=== PATIENT | female | born 1950 | race Caucasian/White ===

== ENCOUNTER 2016-10-03 19:17 | Inpatient (IN) | payer MEDICARE, BC ==
[2016-10-03] MEDS ORDERED: SODIUM CHLORIDE 0.9% 1,000 ML IV ONE (19:44)
[2016-10-03 19:49] LABS: Glucose,Whole Blood 561 mg/dL (75-99)
--- NOTE | 2016-10-03 19:50 | ED ---
General Adult HPI - General Chief complaint: Recheck/Abnormal Lab/Rx Stated complaint: High Blood Sugar Time Seen by Provider: 10/03/16 19:34 Source: patient, family Mode of arrival: ambulatory Limitations: no limitations - History of Present Illness Initial comments: This is a 58-year-old female with a history of type 2 diabetes who presents emergency department for hyperglycemia. The patient states that she is on Humalog sliding scale and also Toujeo 50 units at nighttime. She states that she has been compliant with her medications however she is noted that over the last 4-5 days her sugars have been consistently over 500 she states that she does take her Humalog and then it seems to improve however keeps going up. She does state that she has some associated shortness of breath this week and also has urinary frequency. She also complains of polydipsia. 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 She states that her symptoms seem to be starting after starting this medication. She also admits to some nausea and one episode of vomiting. She also admits to some diarrhea. No abdominal pain. No chest pain. No fevers or chills. No upper respiratory symptoms. No rashes. She does admit to little bit of lower extremity swelling from her baseline. No other complaints. - Related Data Home Medications Medication Instructions Recorded Confirmed Escitalopram [Lexapro] 10 mg PO AC-SUPPER 01/19/16 10/03/16 Insulin Glargine,Hum.rec.anlog 50 units SQ AC-SUPPER 01/19/16 10/03/16 [Toujeo Solostar] Ramipril [Altace] 2.5 mg PO DAILY 01/19/16 10/03/16 Vit B Cmplx 3/FA/Vit C/Biotin 1 tab PO W/SUPPER 01/19/16 10/03/16 [[facility] Rx Tablet] busPIRone HCL [Buspar] 15 mg PO W/SUPPER 01/19/16 10/03/16 rOPINIRole HCL 0.5 mg PO BID 01/19/16 10/03/16 INSULIN LISPRO (humaLOG) [humaLOG See Protocol SQ ACHS 02/13/16 10/03/16 (formulary)] Gabapentin [Neurontin] 100 mg PO TID PRN 05/01/16 10/03/16 LORazepam [Ativan] 0.5 mg PO DAILY PRN 05/01/16 10/03/16 Levothyroxine Sodium [Synthroid] 200 mcg PO DAILY 10/03/16 10/03/16 Allergies Allergy/AdvReac Type Severity Reaction Status Date / Time formaldehyde AdvReac Itching Verified 10/03/16 20:02 nickel AdvReac Itching Verified 10/03/16 20:02 quaternium AdvReac Itching Verified 10/03/16 20:02 Sulfa (Sulfonamide AdvReac Itching Verified 10/03/16 20:02 Antibiotics) Review of Systems ROS Statement: Those systems with pertinent positive or pertinent negative responses have been documented in the HPI. ROS Other: All systems not noted in ROS Statement are negative. Past Medical History Past Medical History: Heart Failure, Diabetes Mellitus, Osteoarthritis (OA), Thyroid Disorder Additional Past Medical History / Comment(s): hypothyroid History of Any Multi-Drug Resistant Organisms: None Reported Past Surgical History: Cholecystectomy, Hernia Repair, Joint Replacement Additional Past Surgical History / Comment(s): kidney stones, left knee replacement Past Anesthesia/Blood Transfusion Reactions: No Reported Reaction Past Psychological History: Depression Additional Psychological History / Comment(s): 12/21/15 Smoking Status: Never smoker Past Alcohol Use History: None Reported Past Drug Use History: None Reported - Past Family History Father History Unknown: Yes Family Medical History: Diabetes Mellitus Additional Family Medical History / Comment(s): etoh Mother Family Medical History: Liver Disease Additional Family Medical History / Comment(s): etoh Brother(s) Additional Family Medical History / Comment(s): depression, etoh General Exam - General Exam Comments Initial Comments: Constitutional: Awake alert Appears comfortable Head: Normocephalic atraumatic ENT: TMs clear bilaterally, oropharynx is clear, mucous membranes are tacky Eyes: no conjunctival injection No scleral icterus EOMI Neck: No JVD Supple Heart: Regular rate rhythm normal S1-S2 no murmurs Lungs: Clear to auscultation bilaterally No wheezing No rales Abdomen: Soft nondistended nontender Extremities: Non edematous DP pulses intact Radial pulses intact, no rashes or ulcerations in bilateral lower extremities Neuro: A&Ox3 No focal neurologic deficits Psych: Appropriate mood and affect Limitations: no limitations Course Vital Signs 10/03/16 10/03/16 19:17 20:40 Temperature 98.6 F Pulse Rate 80 73 Respiratory 18 16 Rate Blood Pressure 119/84 122/59 O2 Sat by Pulse 98 96 Oximetry EKG Findings - EKG Comments: EKG Findings:: EKG showing normal sinus rhythm with a rate of 77. No ST segment changes. There is a T-wave inversion in lead V2. QTC is 423. Other intervals are normal. No ectopy. Medical Decision Making - Medical Decision Making This is a 66-year-old female who presents emergency department for hyperglycemia. She was found to have urinary tract infection and also found to be in early DKA. PH is 7.33 and mildly reduced. Bicarb is also 21. She did have positive ketones in the urine and blood. The patient was started on insulin drip after a bolus and will be admitted to the hospital for further management. She was initiated on DKA protocol. Dr. Riddle was updated and agrees with the admission. Patient was also updated and agrees. All questions were answered. - Lab Data Result diagrams: 10/03/16 20:05 10/03/16 20:05 Lab Results 10/03/16 10/03/16 10/03/16 Range/Units 19:32 20:05 20:05 WBC (3.8-10.6) k/uL RBC (3.80-5.40) m/uL Hgb (11.4-16.0) gm/dL Hct (34.0-46.0) % MCV (80.0-100.0) fL MCH (25.0-35.0) pg MCHC (31.0-37.0) g/dL RDW (11.5-15.5) % Plt Count (150-450) k/uL Neutrophils % % Lymphocytes % % Monocytes % % Eosinophils % % Basophils % % Neutrophils # (1.3-7.7) k/uL Lymphocytes # (1.0-4.8) k/uL Monocytes # (0-1.0) k/uL Eosinophils # (0-0.7) k/uL Basophils # (0-0.2) k/uL Macrocytosis PT (9.0-12.0) sec INR (<1.1) APTT (22.0-30.0) sec VBG pH (7.31-7.41) VBG pCO2 (37-51) mmHg VBG HCO3 (24-28) mmol/L Sodium (137-145) mmol/L Potassium (3.5-5.1) mmol/L Chloride (98-107) mmol/L Carbon Dioxide (22-30) mmol/L Anion Gap mmol/L BUN (7-17) mg/dL Creatinine (0.52-1.04) mg/dL Est GFR (MDRD) Af Amer (>60 ml/min/1.73 sqM) Est GFR (MDRD) Non-Af (>60 ml/min/1.73 sqM) Glucose (74-99) mg/dL POC Glucose (mg/dL) 561 H (75-99) mg/dL POC Glu Supermarket Manager ID AngerCourtney Plasma Lactic Acid Guicho (0.7-2.0) mmol/L Calcium (8.4-10.2) mg/dL Magnesium (1.6-2.3) mg/dL Total Bilirubin (0.2-1.3) mg/dL AST (14-36) U/L ALT (9-52) U/L Alkaline Phosphatase (38-126) U/L CK-MB (CK-2) 2.8 H* (0.0-2.4) ng/mL Troponin I <0.012 (0.000-0.034) ng/mL Total Protein (6.3-8.2) g/dL Albumin (3.5-5.0) g/dL Amylase 38 (30-110) U/L Lipase (23-300) U/L Urine Color Urine Appearance (Clear) Urine pH (5.0-8.0) Ur Specific Hawthorne (1.001-1.035) Urine Protein (Negative) Urine Glucose (UA) (Negative) Urine Ketones (Negative) Urine Blood (Negative) Urine Nitrite (Negative) Urine Bilirubin (Negative) Urine Urobilinogen (<2.0) mg/dL Ur Leukocyte Esterase (Negative) Urine RBC (0-5) /hpf Urine WBC (0-5) /hpf Ur Squamous Epith Cells (0-4) /hpf Urine Bacteria (None) /hpf Hyaline Casts (0-2) /lpf Acetone, Qual Positive (Negative) 10/03/16 10/03/16 10/03/16 Range/Units 20:05 20:05 20:05 WBC 7.8 (3.8-10.6) k/uL RBC 3.86 (3.80-5.40) m/uL Hgb 12.3 (11.4-16.0) gm/dL Hct 39.0 (34.0-46.0) % MCV 101.0 H (80.0-100.0) fL MCH 32.0 (25.0-35.0) pg MCHC 31.6 (31.0-37.0) g/dL RDW 13.8 (11.5-15.5) % Plt Count 192 (150-450) k/uL Neutrophils % 67 % Lymphocytes % 22 % Monocytes % 5 % Eosinophils % 3 % Basophils % 1 % Neutrophils # 5.2 (1.3-7.7) k/uL Lymphocytes # 1.7 (1.0-4.8) k/uL Monocytes # 0.4 (0-1.0) k/uL Eosinophils # 0.2 (0-0.7) k/uL Basophils # 0.1 (0-0.2) k/uL Macrocytosis Slight PT (9.0-12.0) sec INR (<1.1) APTT (22.0-30.0) sec VBG pH (7.31-7.41) VBG pCO2 (37-51) mmHg VBG HCO3 (24-28) mmol/L Sodium 128 L (137-145) mmol/L Potassium 5.4 H (3.5-5.1) mmol/L Chloride 97 L (98-107) mmol/L Carbon Dioxide 21 L (22-30) mmol/L Anion Gap 10 mmol/L BUN 41 H (7-17) mg/dL Creatinine 1.18 H (0.52-1.04) mg/dL Est GFR (MDRD) Af Amer 55 (>60 ml/min/1.73 sqM) Est GFR (MDRD) Non-Af 46 (>60 ml/min/1.73 sqM) Glucose 600 H* (74-99) mg/dL POC Glucose (mg/dL) (75-99) mg/dL POC Glu Supermarket Manager ID Plasma Lactic Acid Guicho 1.4 (0.7-2.0) mmol/L Calcium 9.2 (8.4-10.2) mg/dL Magnesium 1.8 (1.6-2.3) mg/dL Total Bilirubin 1.0 (0.2-1.3) mg/dL AST 34 (14-36) U/L ALT 45 (9-52) U/L Alkaline Phosphatase 100 (38-126) U/L CK-MB (CK-2) (0.0-2.4) ng/mL Troponin I (0.000-0.034) ng/mL Total Protein 6.6 (6.3-8.2) g/dL Albumin 3.8 (3.5-5.0) g/dL Amylase (30-110) U/L Lipase 83 (23-300) U/L Urine Color Urine Appearance (Clear) Urine pH (5.0-8.0) Ur Specific Haw[place]orne (1.001-1.035) Urine Protein (Negative) Urine Glucose (UA) (Negative) Urine Ketones (Negative) Urine Blood (Negative) Urine Nitrite (Negative) Urine Bilirubin (Negative) Urine Urobilinogen (<2.0) mg/dL Ur Leukocyte Esterase (Negative) Urine RBC (0-5) /hpf Urine WBC (0-5) /hpf Ur Squamous Epith Cells (0-4) /hpf Urine Bacteria (None) /hpf Hyaline Casts (0-2) /lpf Acetone, Qual (Negative) 10/03/16 10/03/16 10/03/16 Range/Units 20:05 20:05 20:25 WBC (3.8-10.6) k/uL RBC (3.80-5.40) m/uL Hgb (11.4-16.0) gm/dL Hct (34.0-46.0) % MCV (80.0-100.0) fL MCH (25.0-35.0) pg MCHC (31.0-37.0) g/dL RDW (11.5-15.5) % Plt Count (150-450) k/uL Neutrophils % % Lymphocytes % % Monocytes % % Eosinophils % % Basophils % % Neutrophils # (1.3-7.7) k/uL Lymphocytes # (1.0-4.8) k/uL Monocytes # (0-1.0) k/uL Eosinophils # (0-0.7) k/uL Basophils # (0-0.2) k/uL Macrocytosis PT 10.6 (9.0-12.0) sec INR 1.0 (<1.1) APTT 22.8 (22.0-30.0) sec VBG pH 7.33 (7.31-7.41) VBG pCO2 44 (37-51) mmHg VBG HCO3 22 L (24-28) mmol/L Sodium (137-145) mmol/L Potassium (3.5-5.1) mmol/L Chloride (98-107) mmol/L Carbon Dioxide (22-30) mmol/L Anion Gap mmol/L BUN (7-17) mg/dL Creatinine (0.52-1.04) mg/dL Est GFR (MDRD) Af Amer (>60 ml/min/1.73 sqM) Est GFR (MDRD) Non-Af (>60 ml/min/1.73 sqM) Glucose (74-99) mg/dL POC Glucose (mg/dL) (75-99) mg/dL POC Glu Supermarket Manager ID Plasma Lactic Acid Guicho (0.7-2.0) mmol/L Calcium (8.4-10.2) mg/dL Magnesium (1.6-2.3) mg/dL Total Bilirubin (0.2-1.3) mg/dL AST (14-36) U/L ALT (9-52) U/L Alkaline Phosphatase (38-126) U/L CK-MB (CK-2) (0.0-2.4) ng/mL Troponin I (0.000-0.034) ng/mL Total Protein (6.3-8.2) g/dL Albumin (3.5-5.0) g/dL Amylase (30-110) U/L Lipase (23-300) U/L Urine Color Light Yellow Urine Appearance Clear (Clear) Urine pH 6.0 (5.0-8.0) Ur Specific Haw[place]orne 1.018 (1.001-1.035) Urine Protein Negative (Negative) Urine Glucose (UA) 4+ H (Negative) Urine Ketones 1+ H (Negative) Urine Blood Negative (Negative) Urine Nitrite Negative (Negative) Urine Bilirubin Negative (Negative) Urine Urobilinogen <2.0 (<2.0) mg/dL Ur Leukocyte Esterase Trace H (Negative) Urine RBC 1 (0-5) /hpf Urine WBC 17 H (0-5) /hpf Ur Squamous Epith Cells 1 (0-4) /hpf Urine Bacteria Few H (None) /hpf Hyaline Casts 1 (0-2) /lpf Acetone, Qual (Negative) Disposition Clinical Impression: DKA (diabetic ketoacidoses), UTI (urinary tract infection) Disposition: ADMITTED IP TO THIS HOSP Condition: Stable
[2016-10-03] MEDS ORDERED: ONDANSETRON 4 MG/2 ML VIAL IVP STA (19:59)
[2016-10-03 20:32] LABS: Basophils # (A) 0.1 k/uL (0-0.2); Basophils % (A) 1 %; CH 31.9; CHCM 31.8; Eosinophils # (A) 0.2 k/uL (0-0.7); Eosinophils % (A) 3 %; HDW 2.74; HGB 12.3 gm/dL (11.4-16.0); Luc # (Auto) 0.13; Luc % (Auto) 2; Lymphocytes # (A) 1.7 k/uL (1.0-4.8); Lymphocytes % (A) 22 %; MCHC 31.6 g/dL (31.0-37.0); Macrocytosis Slight; Monocytes # (A) 0.4 k/uL (0-1.0); Monocytes % (A) 5 %; Neutrophils # (A) 5.2 k/uL (1.3-7.7); Neutrophils % (A) 67 %; RBC 3.86 m/uL (3.80-5.40); RDW 13.8 % (11.5-15.5); WBC 7.8 k/uL (3.8-10.6); WBC (Perox) 7.85
[2016-10-03 20:37] LABS: Appearance,Urine Clear (Clear); Bacteria,Urine Few /hpf; Bilirubin,Urine Negative (Negative); Glucose,Urine (UA) 4+ (Negative); Ketones,Urine 1+ (Negative); Leukocyte Esterase,Urine Trace (Negative); Nitrite,Urine Negative (Negative); Particle Count 668; Protein,Urine Negative (Negative); RBC,Urine 1 /hpf (0-5); Specific Gravity,Urine 1.018 (1.001-1.035); Squamous Epithelial Cell,Urine 1 /hpf (0-4); UA Billing (MACRO vs. MICRO) MICRO; Urobilinogen,Urine <2.0 mg/dL (<2.0); WBC,Urine 17 /hpf (0-5)
[2016-10-03 20:47] LABS: Partial Thromboplastin Time 22.8 sec (22.0-30.0); Prothrombin Time 10.6 sec (9.0-12.0)
[2016-10-03 20:50] LABS: Amylase 38 U/L (30-110)
[2016-10-03 20:50] LABS: VBG PH 7.33 (7.31-7.41)
[2016-10-03 20:51] LABS: Calcium 9.2 mg/dL (8.4-10.2); Magnesium 1.8 mg/dL (1.6-2.3); Potassium 5.4 mmol/L (3.5-5.1); Total Protein 6.6 g/dL (6.3-8.2)
[2016-10-03 20:55] LABS: Troponin I <0.012 ng/mL (0.000-0.034)
[2016-10-03 21:00] LABS: Creatine Kinase MB 2.8 ng/mL (0.0-2.4)
[2016-10-03] MEDS ORDERED: Magnesium Replacement Protocol 1 EACH MISC MISCELLANE PRN (21:00)
[2016-10-03] MEDS ORDERED: INSULIN REGULAR BOLUS (FROM DRIP BAG) IV ONE (21:00)
[2016-10-03] MEDS ORDERED: Potassium Replacement Protocol 1 EACH MISC MISCELLANE PRN (21:00)
--- NOTE | 2016-10-03 21:07 | XR ---
EXAMINATION TYPE: XR chest 2V DATE OF EXAM: 10/03/2016 9:01 PM COMPARISON: 02/13/2016 HISTORY: Chest pain TECHNIQUE: Frontal and lateral views of the chest are obtained. FINDINGS: There is no heart failure nor confluent pneumonic infiltrate. There is osteopenia. There i s a slight thoracic kyphosis. There is no pleural effusion. There are no hilar masses. There are ches t leads. IMPRESSION: No active cardiopulmonary disease. No change.
[2016-10-03] MEDS ORDERED: GABAPENTIN 100 MG CAP PO PRN (21:11)
[2016-10-03] MEDS: INSULIN REGULAR 100 UNIT in SODIUM CHLORIDE 0.9% 100 ML IV SCH (21:22)
[2016-10-03] MEDS: SODIUM CHLORIDE 0.9% 1,000 ML IV SCH (21:49)
[2016-10-03 22:02] LABS: Glucose,Whole Blood 497 mg/dL (75-99)
[2016-10-04 04:20] LABS: Glucose,Whole Blood 163 mg/dL (75-99)
[2016-10-04 04:20] LABS: Glucose,Whole Blood 225 mg/dL (75-99)
[2016-10-04 04:20] LABS: Glucose,Whole Blood 78 mg/dL (75-99)
[2016-10-04 04:20] LABS: Glucose,Whole Blood 120 mg/dL (75-99)
[2016-10-04 04:20] LABS: Glucose,Whole Blood 303 mg/dL (75-99)
[2016-10-04 04:20] LABS: Glucose,Whole Blood 102 mg/dL (75-99)
[2016-10-04 04:21] LABS: Glucose,Whole Blood 162 mg/dL (75-99)
[2016-10-04 05:04] LABS: Glucose,Whole Blood 152 mg/dL (75-99)
[2016-10-04] MEDS ORDERED: traMADol 50 MG TAB PO PRN (05:18)
[2016-10-04] MEDS ORDERED: ACETAMINOPHEN TAB 325 MG TAB PO PRN (05:18)
[2016-10-04 06:10] LABS: Glucose,Whole Blood 139 mg/dL (75-99)
[2016-10-04 06:11] LABS: Anion Gap 8 mmol/L; Blood Urea Nitrogen 33 mg/dL (7-17); Carbon Dioxide 24 mmol/L (22-30); Chloride 105 mmol/L (98-107); Non-African American GFR(MDRD) >60 (>60 ml/min/1.73 sqM); Phosphorous 4.5 mg/dL (2.5-4.5); Potassium 4.4 mmol/L (3.5-5.1); Sodium 137 mmol/L (137-145)
[2016-10-04] MEDS: D5-0.45% NACL WITH KCL 20MEQ/L 1,000 ML IV SCH ×3 (06:13→14:03)
[2016-10-04 06:14] LABS: Anion Gap 11 mmol/L; Blood Urea Nitrogen 37 mg/dL (7-17); Carbon Dioxide 19 mmol/L (22-30); Chloride 104 mmol/L (98-107); Glucose 244 mg/dL (74-99); Non-African American GFR(MDRD) 55 (>60 ml/min/1.73 sqM); Phosphorous 2.8 mg/dL (2.5-4.5); Potassium 4.1 mmol/L (3.5-5.1); Sodium 134 mmol/L (137-145)
[2016-10-04] MEDS: SODIUM CHLORIDE 0.9% 1,000 ML IV SCH ×2 (06:14→14:03)
[2016-10-04 06:19] LABS: Glucose 172 mg/dL (74-99)
[2016-10-04 07:25] LABS: Glucose,Whole Blood 119 mg/dL (75-99)
[2016-10-04] MEDS ORDERED: LORazepam 0.5 MG TAB PO PRN (07:52)
[2016-10-04] MEDS: INSULIN REGULAR 100 UNIT in SODIUM CHLORIDE 0.9% 100 ML IV SCH (08:11)
[2016-10-04] MEDS: LISINOPRIL 10 MG TAB PO SCH (08:45)
[2016-10-04] MEDS: LEVOTHYROXINE 100 MCG TAB PO SCH (08:47)
[2016-10-04 12:13] LABS: Glucose,Whole Blood 324 mg/dL (75-99)
[2016-10-04 12:13] LABS: Glucose,Whole Blood 406 mg/dL (75-99)
[2016-10-04 12:27] LABS: Hemoglobin A1C 8.2 % (4.2-6.1)
[2016-10-04] MEDS: INSULIN LISPRO (humaLOG) 300 UNIT/3 ML VIAL SQ SCH ×3 (12:32→21:35)
[2016-10-04 14:46] VITALS: BMI 40.4
[2016-10-04 17:22] LABS: Glucose,Whole Blood 303 mg/dL (75-99)
[2016-10-04] MEDS ORDERED: INSULIN GLARGINE 100 UNIT/ML 10 ML VIAL SQ SCH (17:30)
[2016-10-04] MEDS ORDERED: ESCITALOPRAM 10 MG TAB PO SCH (17:30)
[2016-10-04] MEDS ORDERED: FOLIC ACID-VIT B COMPLEX-VIT C 1 CAP PO SCH (17:30)
[2016-10-04] MEDS ORDERED: busPIRone HCl 5 MG TAB PO SCH (17:30)
[2016-10-04 19:16] LABS: Glucose,Whole Blood 345 mg/dL (75-99)
[2016-10-04 20:57] LABS: Glucose,Whole Blood 205 mg/dL (75-99)
[2016-10-05 06:20] LABS: Glucose,Whole Blood 42 mg/dL (75-99); Glucose,Whole Blood 46 mg/dL (75-99)
[2016-10-05 06:53] LABS: Glucose,Whole Blood 51 mg/dL (75-99)
[2016-10-05 06:53] LABS: Glucose,Whole Blood 49 mg/dL (75-99)
[2016-10-05] MEDS: INSULIN LISPRO (humaLOG) 300 UNIT/3 ML VIAL SQ SCH ×2 (07:00→12:36)
[2016-10-05 07:01] LABS: Glucose,Whole Blood 85 mg/dL (75-99)
[2016-10-05] MEDS: LEVOTHYROXINE 100 MCG TAB PO SCH (07:02)
[2016-10-05] MEDS ORDERED: ESCITALOPRAM 20 MG TAB PO SCH (09:00)
[2016-10-05] MEDS: LISINOPRIL 10 MG TAB PO SCH (09:57)
--- NOTE | 2016-10-05 11:25 | HP ---
DATE OF ADMISSION: 10/03/2016 This is a pleasant 66-year-old white female who has known type 2 diabetes, insulin requiring. She apparently has been drinking quite a bit of pop as an outpatient. She states that she has been relatively controlled in her diet but is recently and under some stress and depression where she has not been eating regular and accurately. She does state that she has been drinking extra pop as of late. She reported having some urinary tract infection symptoms as well as some increased thirst, increased hunger, and increased polyuria. She did have some nausea and one episode of vomiting and was found to have sugars well over 400. On admission. She had sugars up to 500. Her home medications include: 1. Lexapro. 2. Toujeo. 3. Altace. 4. Buspar 50 mg 1 at dinner. 5. Humalog. 6. Neurontin. 7. Ropinol 0.5 b.i.d. 8. Insulin lispro on a sliding scale, subcu at bedtime. 9. Gabapentin 100 mg t.i.d. 10. Ativan 0.5 mg 1 daily. 11. Synthroid 200 mcg p.o. 1 daily. ALLERGIES: FORMALDEHYDE, NICKEL, SULFUR. REVIEW OF SYSTEMS: The patient denies any fevers. She denies any shortness of breath or chest pain. She denies any nausea or vomiting. Denies any stroke or paralysis. Recently , she is saddened by this, she is having increased problems with depression. Review of systems is essentially unremarkable. PAST MEDICAL HISTORY: Significant for diabetes, osteoarthritis, heart failure, hypothyroid. PAST SURGICAL HISTORY: Cholecystectomy, hernia repair, joint replacement, kidney stone extraction, left knee replacement. SOCIAL HISTORY: Denies any tobacco or alcohol. She lived with her many years, he in December 21, 2015. FAMILY HISTORY: Family history of diabetes. PHYSICAL EXAMINATION: GENERAL: The patient is alert, answering questions appropriately. HEAD: Normocephalic and atraumatic. NECK: Supple. No JVD. HEART: Regular rate and rhythm. LUNGS: Clear to auscultation. ABDOMEN: Soft, nontender, obese. No rebound, rigidity, guarding. EXTREMITIES: No cyanosis, clubbing or jaundice. NEUROLOGIC: Cranial nerves II through XII are grossly intact. PSYCHOLOGICAL: She is answering questions appropriately at this point. Her sugar is down in the mid 100s, recent one was 119. IMPRESSION: 1. Acute hyperglycemia, 2. Hyponatremia. 3. Early diabetic ketoacidosis. 4. Recent loss of . 5. Hyperkalemia. 6. Acute kidney injury with stage II chronic kidney disease. 7. Urinary tract infection. PLAN: Continue IV antibiotics. DKA protocol. Hydration. Diabetic instructions. Continue to follow the patient. Overall guarded prognosis. We will increase her Lexapro to 20 mg for better control of her depression.
[2016-10-05 11:33] VITALS: RESP 16; TEMP 96.7
[2016-10-05 11:46] VITALS: BP 124/77; PULSE 68
[2016-10-05 11:50] LABS: Glucose,Whole Blood 292 mg/dL (75-99)
--- NOTE | 2016-10-06 12:23 | DS ---
DATE OF ADMISSION: 10/03/2016 DATE OF DISCHARGE: 10/05/2016 A 66-year-old female, came in with elevated insulin. Patient had some ketosis, but I do not believe patient has diabetic ketoacidosis. Patient has starvation ketosis. Patient's anion gap is not a very high. Patient is otherwise clinically doing well and I believe her elevated blood sugars are secondary to noncompliance. I am I am not changing her regimen. Regarding her urinary tract infection. Patient has a urinary frequency. The urinary frequency is related to hyperglycemia. Low-sodium is related to hyperglycemia. Patient already received 2 days of antibiotics. Patient probably has asymptomatic bacteria, which does not warrant any antibiotics. Patient will be discharged today. I do not believe patient will require any antibiotics. The patient will be asked to follow with Dr. Diogenes Riddle as an outpatient. The patient was asked to check the blood sugar 3 times a day and take it to Dr. Riddle so that insulin can be titrated. Patient uses carb counting for premeal insulin and 50 units of Lantus during nighttime. Patient's sugars on her home dose did do well except for there were some episodes of low blood sugars of 46, 51 and 85, because of that I am actually cutting down the Lantus to 44 units, although may not be contributing to her hypoglycemia that much. I am cutting it down to 42 units. Patient was seen and examined on the day of discharge. Vitals signs are stable. ASSESSMENT AND PLAN: 1. Hyperglycemia. 2. Pseudohyponatremia from hyperglycemia. 3. Starvation ketosis. 4. Symptomatic bacteriuria. 5. Acute renal failure, prerenal azotemia secondary to dehydration, which improved at this point of time with IV fluids. 6. Patient is undergoing normal bereavement process after the demise of her spouse. 7. The patient will be discharged today. Please refer to my depart summary for the list of discharge medications. Patient will follow with Dr. Diogenes Riddle in 3 to 7 days. Activity as tolerated. Cardiac and diabetic 1800 calorie diet. Extensive dietary counseling was provided. Patient's elevated blood sugars are secondary to diet noncompliance, importance of which is counseled to the patient. Spent greater than 35 minutes in total discharge process.
== END 2016-10-05 15:03 | disposition home or self-care (01) | DRG 638 ==
LOC: EC 19:17 → 6SEL 21:12
PROVIDERS: ADMIT Family Medicine; ATTEND Family Medicine
DX: E11.65 Type 2 diabetes mellitus with hyperglycemia (principal); N17.9 Acute kidney failure, unspecified; E88.89 Other specified metabolic disorders; E11.649 Type 2 diabetes mellitus with hypoglycemia without coma; E87.1 Hypo-osmolality and hyponatremia; E87.5 Hyperkalemia; E86.0 Dehydration; M79.89 Other specified soft tissue disorders; R82.71 Bacteriuria; R11.2 Nausea with vomiting, unspecified; N18.2 Chronic kidney disease, stage 2 (mild); E03.9 Hypothyroidism, unspecified; F32.9 Major depressive disorder, single episode, unspecified; R06.02 Shortness of breath; R19.7 Diarrhea, unspecified; R35.8 Other polyuria; R63.1 Polydipsia; M19.90 Unspecified osteoarthritis, unspecified site; Z91.11 Patient's noncompliance with dietary regimen; Z63.4 Disappearance and death of family member; Z83.3 Family history of diabetes mellitus; Z87.442 Personal history of urinary calculi; Z79.899 Other long term (current) drug therapy; Z96.652 Presence of left artificial knee joint; Z79.4 Long term (current) use of insulin; Z81.8 Family history of other mental and behavioral disorders; Z90.49 Acquired absence of other specified parts of digestive tract; Z71.3 Dietary counseling and surveillance; Z86.79 Personal history of other diseases of the circulatory system; Z88.2 Allergy status to sulfonamides; Z91.048 Other nonmedicinal substance allergy status; Z91.19 Patient's noncompliance with other medical treatment and regimen; Z81.1 Family history of alcohol abuse and dependence; Z83.79 Family history of other diseases of the digestive system
CPT/HCPCS: 36415; 71020; 80051; 80053; 81001; 82009; 82150; 82553; 82565; 82803; 82947; 83036; 83605; 83690; 83735; 83880; 84100; 84484; 84520; 85025; 85610; 85730; 87077; 87086; 87186; 93005; 96361; 96365; 96368; 96375; 96376; 99285

== ENCOUNTER 2016-11-05 19:57 | Emergency (ER) | payer MEDICARE, BC ==
[2016-11-05 20:20] VITALS: RESP 18
[2016-11-05 22:03] LABS: Glucose,Whole Blood 261 mg/dL (75-99)
[2016-11-05] MEDS ORDERED: METOCLOPRAMIDE 5 MG/ML 2 ML VIAL IVP STA (22:10)
[2016-11-05] MEDS ORDERED: SODIUM CHLORIDE 0.9% 1,000 ML IV STA (22:10)
[2016-11-05 22:35] LABS: Appearance,Urine Clear (Clear); Bilirubin,Urine Negative (Negative); Glucose,Urine (UA) 4+ (Negative); Ketones,Urine 1+ (Negative); Leukocyte Esterase,Urine Large (Negative); Mucus,Urine Rare /hpf; Nitrite,Urine Negative (Negative); Particle Count 4432; Protein,Urine Negative (Negative); RBC,Urine 14 /hpf (0-5); Specific Gravity,Urine 1.023 (1.001-1.035); Squamous Epithelial Cell,Urine 1 /hpf (0-4); UA Billing (MACRO vs. MICRO) MICRO; Urobilinogen,Urine <2.0 mg/dL (<2.0); WBC,Urine 68 /hpf (0-5)
[2016-11-05 22:41] LABS: Basophils # (A) 0.1 k/uL (0-0.2); Basophils % (A) 1 %; CH 32.3; CHCM 33.1; Eosinophils # (A) 0.2 k/uL (0-0.7); Eosinophils % (A) 2 %; HCT 40.3 % (34.0-46.0); HDW 2.73; HGB 13.1 gm/dL (11.4-16.0); Luc # (Auto) 0.16; Luc % (Auto) 2; Lymphocytes # (A) 2.3 k/uL (1.0-4.8); Lymphocytes % (A) 23 %; MCH 31.8 pg (25.0-35.0); MCHC 32.4 g/dL (31.0-37.0); Mean Platelet Volume 9.7; Monocytes # (A) 0.9 k/uL (0-1.0); Monocytes % (A) 10 %; Neutrophils # (A) 6.1 k/uL (1.3-7.7); Neutrophils % (A) 63 %; RBC 4.11 m/uL (3.80-5.40); RDW 13.4 % (11.5-15.5); WBC 9.7 k/uL (3.8-10.6); WBC (Perox) 10.09
[2016-11-05 22:50] LABS: INR 1.1 (<1.1); Prothrombin Time 10.9 sec (9.0-12.0)
[2016-11-05 22:51] LABS: ALT 50 U/L (9-52); AST 46 U/L (14-36); Alkaline Phosphatase 89 U/L (38-126); Amylase 36 U/L (30-110); Anion Gap 14 mmol/L; Blood Urea Nitrogen 28 mg/dL (7-17); Calcium 9.6 mg/dL (8.4-10.2); Carbon Dioxide 23 mmol/L (22-30); Chloride 103 mmol/L (98-107); Glucose 226 mg/dL (74-99); Non-African American GFR(MDRD) 45 (>60 ml/min/1.73 sqM); Potassium 3.6 mmol/L (3.5-5.1); Sodium 140 mmol/L (137-145); Total Bilirubin 0.8 mg/dL (0.2-1.3); Total Protein 6.8 g/dL (6.3-8.2)
[2016-11-05] MEDS ORDERED: DIAZEPAM 5 MG/ML 2 ML SYRINGE IVP STA (23:01)
[2016-11-05 23:03] LABS: Partial Thromboplastin Time 21.5 sec (22.0-30.0)
--- NOTE | 2016-11-05 23:11 | XR ---
EXAM: XR Chest, 2 Views CLINICAL HISTORY: Reason: abdominal pain TECHNIQUE: Frontal and lateral views of the chest. COMPARISON: Chest x-ray 10/03/16 FINDINGS: Lungs: Unremarkable. No consolidation. Pleural space: No pleural effusion. No pneumothorax. Heart: Unremarkable. No cardiomegaly. Mediastinum: Unremarkable. Bones/joints: Degenerative changes of the glenohumeral joints IMPRESSION: No acute cardiopulmonary disease.
--- NOTE | 2016-11-05 23:18 | XR ---
EXAM: XR Abdomen, 1 View CLINICAL HISTORY: Reason: abdominal pain TECHNIQUE: Frontal supine view of the abdomen/pelvis, 2 images COMPARISON: Abdominal radiographs 02/13/16 FINDINGS: Gastrointestinal tract: Nonobstructive bowel gas pattern. Bones/joints: Degenerative changes of the spine with levocurvature. Soft tissues: Right upper quadrant surgical clips. Pelvic phleboliths. IMPRESSION: Nonobstructive bowel gas pattern.
--- NOTE | 2016-11-05 23:23 | ED ---
Recheck HPI - General Chief Complaint: Recheck/Abnormal Lab/Rx Stated Complaint: High Blood Sugar Time Seen by Provider: 11/05/16 21:56 Source: patient, RN notes reviewed, old records reviewed Mode of arrival: wheelchair Limitations: no limitations - History of Present Illness Initial Comments: This is a 66-year-old female presenting to the emergency department with chief complaint of 1 day of lightheadedness and elevated blood sugar. Patient reports that she's been feeling clammy and sweaty. She reports she feels nauseated. She denies any fever or chills. She reports that she has some tenderness over the umbilicus region. Patient reports that she has no chest pain or shortness of breath. - Related Data Home Medications Medication Instructions Recorded Confirmed Escitalopram [Lexapro] 10 mg PO AC-SUPPER 01/19/16 11/05/16 Ramipril [Altace] 2.5 mg PO DAILY 01/19/16 11/05/16 Vit B Comp No.3/Folic/C/Biotin 1 tab PO W/SUPPER 01/19/16 11/05/16 [[facility] Rx Tablet] rOPINIRole HCL 0.5 mg PO BID 01/19/16 11/05/16 INSULIN LISPRO (humaLOG) [humaLOG See Protocol SQ ACHS 02/13/16 11/05/16 (formulary)] Gabapentin [Neurontin] 100 mg PO TID PRN 05/01/16 11/05/16 LORazepam [Ativan] 0.5 mg PO DAILY PRN 05/01/16 11/05/16 Levothyroxine Sodium [Synthroid] 200 mcg PO DAILY 10/03/16 11/05/16 Allopurinol [Zyloprim] 100 mg PO DAILY 11/05/16 11/05/16 Insulin Glargine,Hum.rec.anlog 60 units SQ AC-SUPPER 11/05/16 11/05/16 [Tougirma Quinterosostparker] Levothyroxine Sodium [Synthroid] 50 mcg PO DAILY 11/05/16 11/05/16 busPIRone HCl [Buspar] 20 mg PO W/SUPPER 11/05/16 11/05/16 Previous Rx's Medication Instructions Recorded Ciprofloxacin HCl [Cipro] 500 mg PO Q12HR #14 tablet 11/06/16 Allergies Allergy/AdvReac Type Severity Reaction Status Date / Time formaldehyde AdvReac Itching Verified 11/05/16 22:20 nickel AdvReac Itching Verified 11/05/16 22:20 quaternium AdvReac Itching Verified 11/05/16 22:20 Sulfa (Sulfonamide AdvReac Itching Verified 11/05/16 22:20 Antibiotics) Review of Systems ROS Statement: Those systems with pertinent positive or pertinent negative responses have been documented in the HPI. ROS Other: All systems not noted in ROS Statement are negative. Past Medical History Past Medical History: Heart Failure, Diabetes Mellitus, Osteoarthritis (OA), Thyroid Disorder Additional Past Medical History / Comment(s): hypothyroid History of Any Multi-Drug Resistant Organisms: None Reported Past Surgical History: Cholecystectomy, Hernia Repair, Joint Replacement Additional Past Surgical History / Comment(s): kidney stones, left knee replacement Past Anesthesia/Blood Transfusion Reactions: No Reported Reaction Past Psychological History: Depression Additional Psychological History / Comment(s): 12/21/15 Smoking Status: Never smoker Past Alcohol Use History: None Reported Past Drug Use History: None Reported - Past Family History Father History Unknown: Yes Family Medical History: Diabetes Mellitus Additional Family Medical History / Comment(s): etoh Mother Family Medical History: Liver Disease Additional Family Medical History / Comment(s): etoh Brother(s) Additional Family Medical History / Comment(s): depression, etoh General Exam - General Exam Comments Initial Comments: Is a pleasant 58-year-old female. No distress. Limitations: no limitations General appearance: alert, in no apparent distress Head exam: Present: atraumatic, normocephalic, normal inspection Eye exam: Present: normal appearance, PERRL, EOMI. Absent: scleral icterus, conjunctival injection, periorbital swelling ENT exam: Present: normal exam, mucous membranes moist Neck exam: Present: normal inspection. Absent: tenderness, meningismus, lymphadenopathy Respiratory exam: Present: normal lung sounds bilaterally. Absent: respiratory distress, wheezes, rales, rhonchi, stridor Cardiovascular Exam: Present: regular rate, normal rhythm, normal heart sounds. Absent: systolic murmur, diastolic murmur, rubs, gallop, clicks GI/Abdominal exam: Present: soft, tenderness (Mild epigastric tenderness.), normal bowel sounds. Absent: distended, guarding, rebound, rigid Extremities exam: Present: normal inspection, full ROM, normal capillary refill. Absent: tenderness, pedal edema, joint swelling, calf tenderness Back exam: Present: normal inspection Neurological exam: Present: alert, oriented X3, CN II-XII intact Psychiatric exam: Present: normal affect, normal mood Skin exam: Present: warm, dry, intact, normal color. Absent: rash Course Vital Signs 11/05/16 11/05/16 11/06/16 20:18 23:24 00:26 Temperature 98 F 98.2 F 98.6 F Pulse Rate 88 78 69 Respiratory 18 18 18 Rate Blood Pressure 112/65 126/72 98/56 O2 Sat by Pulse 98 95 96 Oximetry Medical Decision Making - Medical Decision Making This is a 66-year-old female presenting to the emergency department with chief complaint of 1 day of lightheadedness and elevated blood sugar. Patient reports that she's been feeling clammy and sweaty. She reports she feels nauseated. She denies any fever or chills. She reports that she has some tenderness over the umbilicus region. Patient reports that she has no chest pain or shortness of breath. LAB WORK reviewed, patient does have elevated lactic acid. Patient given 2 L fluids, labs redrawn lactic is within normal lmits. Patient reports she feels much better at this time. Wants to go home. Gray was examined by Dr. Jain, and patient feels well and looks well. No abdominal pain. Patient will be discharged at this time. Urinalysis does show signs of infection, will be placed on ciprofloxacin. Patient agrees to follow up with PCP in 2 days. When gray was discharged BG was noted to be 35. PAtient given food and sugar became up to 70 before discharged. - Lab Data Result diagrams: 11/05/16 22:30 11/05/16 22:30 Lab Results 11/05/16 11/05/16 11/05/16 Range/Units 20:22 22:02 22:20 WBC (3.8-10.6) k/uL RBC (3.80-5.40) m/uL Hgb (11.4-16.0) gm/dL Hct (34.0-46.0) % MCV (80.0-100.0) fL MCH (25.0-35.0) pg MCHC (31.0-37.0) g/dL RDW (11.5-15.5) % Plt Count (150-450) k/uL Neutrophils % % Lymphocytes % % Monocytes % % Eosinophils % % Basophils % % Neutrophils # (1.3-7.7) k/uL Lymphocytes # (1.0-4.8) k/uL Monocytes # (0-1.0) k/uL Eosinophils # (0-0.7) k/uL Basophils # (0-0.2) k/uL PT (9.0-12.0) sec INR (<1.1) APTT (22.0-30.0) sec Sodium (137-145) mmol/L Potassium (3.5-5.1) mmol/L Chloride (98-107) mmol/L Carbon Dioxide (22-30) mmol/L Anion Gap mmol/L BUN (7-17) mg/dL Creatinine (0.52-1.04) mg/dL Est GFR (MDRD) Af Amer (>60 ml/min/1.73 sqM) Est GFR (MDRD) Non-Af (>60 ml/min/1.73 sqM) Glucose (74-99) mg/dL POC Glucose (mg/dL) 438 H 261 H (75-99) mg/dL POC Glu Estate Tax Examiner Mirella Roberson Alisha Plasma Lactic Acid Guicho (0.7-2.0) mmol/L Calcium (8.4-10.2) mg/dL Total Bilirubin (0.2-1.3) mg/dL AST (14-36) U/L ALT (9-52) U/L Alkaline Phosphatase (38-126) U/L Troponin I (0.000-0.034) ng/mL Total Protein (6.3-8.2) g/dL Albumin (3.5-5.0) g/dL Amylase (30-110) U/L Lipase (23-300) U/L Urine Color Yellow Urine Appearance Clear (Clear) Urine pH 6.0 (5.0-8.0) Ur Specific [place] 1.023 (1.001-1.035) Urine Protein Negative (Negative) Urine Glucose (UA) 4+ H (Negative) Urine Ketones 1+ H (Negative) Urine Blood Negative (Negative) Urine Nitrite Negative (Negative) Urine Bilirubin Negative (Negative) Urine Urobilinogen <2.0 (<2.0) mg/dL Ur Leukocyte Esterase Large H (Negative) Urine RBC 14 H (0-5) /hpf Urine WBC 68 H (0-5) /hpf Ur Squamous Epith Cells 1 (0-4) /hpf Urine Mucus Rare H (None) /hpf Acetone, Qual (Negative) 11/05/16 11/05/16 11/05/16 Range/Units 22:30 22:30 22:30 WBC 9.7 (3.8-10.6) k/uL RBC 4.11 (3.80-5.40) m/uL Hgb 13.1 (11.4-16.0) gm/dL Hct 40.3 (34.0-46.0) % MCV 98.0 (80.0-100.0) fL MCH 31.8 (25.0-35.0) pg MCHC 32.4 (31.0-37.0) g/dL RDW 13.4 (11.5-15.5) % Plt Count 192 (150-450) k/uL Neutrophils % 63 % Lymphocytes % 23 % Monocytes % 10 % Eosinophils % 2 % Basophils % 1 % Neutrophils # 6.1 (1.3-7.7) k/uL Lymphocytes # 2.3 (1.0-4.8) k/uL Monocytes # 0.9 (0-1.0) k/uL Eosinophils # 0.2 (0-0.7) k/uL Basophils # 0.1 (0-0.2) k/uL PT (9.0-12.0) sec INR (<1.1) APTT (22.0-30.0) sec Sodium 140 (137-145) mmol/L Potassium 3.6 (3.5-5.1) mmol/L Chloride 103 (98-107) mmol/L Carbon Dioxide 23 (22-30) mmol/L Anion Gap 14 mmol/L BUN 28 H (7-17) mg/dL Creatinine 1.20 H (0.52-1.04) mg/dL Est GFR (MDRD) Af Amer 54 (>60 ml/min/1.73 sqM) Est GFR (MDRD) Non-Af 45 (>60 ml/min/1.73 sqM) Glucose 226 H (74-99) mg/dL POC Glucose (mg/dL) (75-99) mg/dL POC Glu Estate Tax Examiner ID Plasma Lactic Acid Guicho 4.0 H* (0.7-2.0) mmol/L Calcium 9.6 (8.4-10.2) mg/dL Total Bilirubin 0.8 (0.2-1.3) mg/dL AST 46 H (14-36) U/L ALT 50 (9-52) U/L Alkaline Phosphatase 89 (38-126) U/L Troponin I (0.000-0.034) ng/mL Total Protein 6.8 (6.3-8.2) g/dL Albumin 3.8 (3.5-5.0) g/dL Amylase 36 (30-110) U/L Lipase 53 (23-300) U/L Urine Color Urine Appearance (Clear) Urine pH (5.0-8.0) Ur Specific [place] (1.001-1.035) Urine Protein (Negative) Urine Glucose (UA) (Negative) Urine Ketones (Negative) Urine Blood (Negative) Urine Nitrite (Negative) Urine Bilirubin (Negative) Urine Urobilinogen (<2.0) mg/dL Ur Leukocyte Esterase (Negative) Urine RBC (0-5) /hpf Urine WBC (0-5) /hpf Ur Squamous Epith Cells (0-4) /hpf Urine Mucus (None) /hpf Acetone, Qual Negative (Negative) 11/05/16 11/05/16 11/06/16 Range/Units 22:30 22:30 00:21 WBC (3.8-10.6) k/uL RBC (3.80-5.40) m/uL Hgb (11.4-16.0) gm/dL Hct (34.0-46.0) % MCV (80.0-100.0) fL MCH (25.0-35.0) pg MCHC (31.0-37.0) g/dL RDW (11.5-15.5) % Plt Count (150-450) k/uL Neutrophils % % Lymphocytes % % Monocytes % % Eosinophils % % Basophils % % Neutrophils # (1.3-7.7) k/uL Lymphocytes # (1.0-4.8) k/uL Monocytes # (0-1.0) k/uL Eosinophils # (0-0.7) k/uL Basophils # (0-0.2) k/uL PT 10.9 (9.0-12.0) sec INR 1.1 (<1.1) APTT 21.5 L (22.0-30.0) sec Sodium (137-145) mmol/L Potassium (3.5-5.1) mmol/L Chloride (98-107) mmol/L Carbon Dioxide (22-30) mmol/L Anion Gap mmol/L BUN (7-17) mg/dL Creatinine (0.52-1.04) mg/dL Est GFR (MDRD) Af Amer (>60 ml/min/1.73 sqM) Est GFR (MDRD) Non-Af (>60 ml/min/1.73 sqM) Glucose (74-99) mg/dL POC Glucose (mg/dL) (75-99) mg/dL POC Glu Estate Tax Examiner ID Plasma Lactic Acid Guicho 1.8 (0.7-2.0) mmol/L Calcium (8.4-10.2) mg/dL Total Bilirubin (0.2-1.3) mg/dL AST (14-36) U/L ALT (9-52) U/L Alkaline Phosphatase (38-126) U/L Troponin I 0.015 (0.000-0.034) ng/mL Total Protein (6.3-8.2) g/dL Albumin (3.5-5.0) g/dL Amylase (30-110) U/L Lipase (23-300) U/L Urine Color Urine Appearance (Clear) Urine pH (5.0-8.0) Ur Specific [place] (1.001-1.035) Urine Protein (Negative) Urine Glucose (UA) (Negative) Urine Ketones (Negative) Urine Blood (Negative) Urine Nitrite (Negative) Urine Bilirubin (Negative) Urine Urobilinogen (<2.0) mg/dL Ur Leukocyte Esterase (Negative) Urine RBC (0-5) /hpf Urine WBC (0-5) /hpf Ur Squamous Epith Cells (0-4) /hpf Urine Mucus (None) /hpf Acetone, Qual (Negative) 11/06/16 11/06/16 11/06/16 Range/Units 01:24 01:38 01:51 WBC (3.8-10.6) k/uL RBC (3.80-5.40) m/uL Hgb (11.4-16.0) gm/dL Hct (34.0-46.0) % MCV (80.0-100.0) fL MCH (25.0-35.0) pg MCHC (31.0-37.0) g/dL RDW (11.5-15.5) % Plt Count (150-450) k/uL Neutrophils % % Lymphocytes % % Monocytes % % Eosinophils % % Basophils % % Neutrophils # (1.3-7.7) k/uL Lymphocytes # (1.0-4.8) k/uL Monocytes # (0-1.0) k/uL Eosinophils # (0-0.7) k/uL Basophils # (0-0.2) k/uL PT (9.0-12.0) sec INR (<1.1) APTT (22.0-30.0) sec Sodium (137-145) mmol/L Potassium (3.5-5.1) mmol/L Chloride (98-107) mmol/L Carbon Dioxide (22-30) mmol/L Anion Gap mmol/L BUN (7-17) mg/dL Creatinine (0.52-1.04) mg/dL Est GFR (MDRD) Af Amer (>60 ml/min/1.73 sqM) Est GFR (MDRD) Non-Af (>60 ml/min/1.73 sqM) Glucose (74-99) mg/dL POC Glucose (mg/dL) 35 L 50 L 77 (75-99) mg/dL POC Glu Estate Tax Examiner ID Sonny, Edith Sonny, Edith Sonny, Edith Plasma Lactic Acid Guicho (0.7-2.0) mmol/L Calcium (8.4-10.2) mg/dL Total Bilirubin (0.2-1.3) mg/dL AST (14-36) U/L ALT (9-52) U/L Alkaline Phosphatase (38-126) U/L Troponin I (0.000-0.034) ng/mL Total Protein (6.3-8.2) g/dL Albumin (3.5-5.0) g/dL Amylase (30-110) U/L Lipase (23-300) U/L Urine Color Urine Appearance (Clear) Urine pH (5.0-8.0) Ur Specific [place] (1.001-1.035) Urine Protein (Negative) Urine Glucose (UA) (Negative) Urine Ketones (Negative) Urine Blood (Negative) Urine Nitrite (Negative) Urine Bilirubin (Negative) Urine Urobilinogen (<2.0) mg/dL Ur Leukocyte Esterase (Negative) Urine RBC (0-5) /hpf Urine WBC (0-5) /hpf Ur Squamous Epith Cells (0-4) /hpf Urine Mucus (None) /hpf Acetone, Qual (Negative) 11/06/16 01:06 EKG shows normal sinus rhythm. Possible anterolateral infarct. The area of 95 beats were minute. Verbal 116. Dress her symptoms have her medicines. QT QTC 364/470 ms. This is compared to previous EKG. No significant acute findings. - Radiology Data Radiology results: report reviewed CXR and KUB are negative. Disposition Clinical Impression: Hyperglycemia, Dehydration, UTI (urinary tract infection) Disposition: HOME SELF-CARE Condition: Good Instructions: Diabetic Hyperglycemia (ED) Additional Instructions: Patient has a follow-up with her primary care provider tomorrow. Return to emergency Department family signs symptoms occur. Completely anabiotic prescription for UTI. Prescriptions: Ciprofloxacin HCl [Cipro] 500 mg PO Q12HR #14 tablet Referrals: Diogenes Riddle DO [Primary Care Provider] - 1-2 days Time of Disposition: 01:02
[2016-11-05] MEDS ORDERED: SODIUM CHLORIDE 0.9% 1,000 ML IV SCH (23:30)
[2016-11-06] MEDS ORDERED: CIPROFLOXACIN HCL 500 MG TAB PO STA (00:13)
[2016-11-06 00:27] VITALS: BP 98/56; PULSE 69; TEMP 98.6
[2016-11-06 01:40] LABS: Glucose,Whole Blood 50 mg/dL (75-99)
[2016-11-06 01:40] LABS: Glucose,Whole Blood 35 mg/dL (75-99)
[2016-11-06 01:52] LABS: Glucose,Whole Blood 77 mg/dL (75-99)
[2016-11-06 07:44] LABS: Glucose,Whole Blood 438 mg/dL (75-99)
== END 2016-11-06 01:57 | disposition home or self-care (01) ==
LOC: EC 19:57
DX: E11.65 Type 2 diabetes mellitus with hyperglycemia (principal); E86.0 Dehydration; N39.0 Urinary tract infection, site not specified; I50.9 Heart failure, unspecified; M19.90 Unspecified osteoarthritis, unspecified site; E03.9 Hypothyroidism, unspecified; F32.9 Major depressive disorder, single episode, unspecified; Z79.4 Long term (current) use of insulin; Z79.899 Other long term (current) drug therapy; Z88.2 Allergy status to sulfonamides; Z88.8 Allergy status to other drugs, medicaments and biological substances; Z91.048 Other nonmedicinal substance allergy status
CPT/HCPCS: 36415 ×2; 80053; 82150; 82009; 83605 ×2; 83690; 84484; 85025; 85610; 85730; 81001; 87040; 87086; 71020; 74000; 99284; 96374; 96375; 96361 ×3; J2765; J3360; 93005

== ENCOUNTER 2016-12-06 18:53 | Inpatient (IN) | payer MEDICARE, BC ==
[2016-12-06] MEDS ORDERED: SODIUM CHLORIDE 0.9% 500 ML IV STA (19:29)
[2016-12-06] MEDS ORDERED: SODIUM CHLORIDE 0.9% 1,000 ML IV STA ×2 (19:29)
--- NOTE | 2016-12-06 19:32 | ED ---
General Adult HPI - General Chief complaint: Recheck/Abnormal Lab/Rx Stated complaint: weakness Time Seen by Provider: 12/06/16 19:26 Source: patient, RN notes reviewed, old records reviewed Mode of arrival: ambulatory Limitations: no limitations - History of Present Illness Initial comments: This is a 66-year-old female earlier for evaluation. The patient presents for evaluation of weakness patient patient is not febrile. Decreased appetite. Specific abdominal pain. No nausea vomiting, no diarrhea. No fevers. Patient states she did check her blood sugar at home and states the right eye. Denies chest pain or shortness of breath. Patient denies not taking her medications - Related Data Home Medications Medication Instructions Recorded Confirmed Ramipril [Altace] 2.5 mg PO DAILY 01/19/16 12/06/16 Vit B Comp No.3/Folic/C/Biotin 1 tab PO W/SUPPER 01/19/16 12/06/16 [[facility] Rx Tablet] rOPINIRole HCL 0.5 mg PO BID 01/19/16 12/06/16 INSULIN LISPRO (humaLOG) [humaLOG See Protocol SQ ACHS 02/13/16 12/06/16 (formulary)] LORazepam [Ativan] 0.5 mg PO DAILY PRN 05/01/16 12/06/16 Levothyroxine Sodium [Synthroid] 200 mcg PO DAILY 10/03/16 12/06/16 Allopurinol [Zyloprim] 100 mg PO DAILY 11/05/16 12/06/16 Insulin Glargine,Hum.rec.anlog 60 units SQ AC-SUPPER 11/05/16 12/06/16 [Tougirma Solostar] Levothyroxine Sodium [Synthroid] 50 mcg PO DAILY 11/05/16 12/06/16 busPIRone HCl [Buspar] 20 mg PO W/SUPPER 11/05/16 12/06/16 Amoxicillin 875 mg PO BID 12/06/16 12/06/16 Escitalopram Oxalate [Lexapro] 20 mg PO DAILY 12/06/16 12/06/16 Thiamine HCl [Vitamin B-1] 50 mg PO DAILY 12/06/16 12/06/16 Allergies Allergy/AdvReac Type Severity Reaction Status Date / Time formaldehyde AdvReac Itching Verified 12/06/16 19:58 nickel AdvReac Itching Verified 12/06/16 19:58 quaternium AdvReac Itching Verified 12/06/16 19:58 Sulfa (Sulfonamide AdvReac Itching Verified 12/06/16 19:58 Antibiotics) Review of Systems ROS Statement: Those systems with pertinent positive or pertinent negative responses have been documented in the HPI. ROS Other: All systems not noted in ROS Statement are negative. Past Medical History Past Medical History: Heart Failure, Diabetes Mellitus, Osteoarthritis (OA), Thyroid Disorder Additional Past Medical History / Comment(s): hypothyroid History of Any Multi-Drug Resistant Organisms: None Reported Past Surgical History: Cholecystectomy, Hernia Repair, Joint Replacement Additional Past Surgical History / Comment(s): kidney stones, left knee replacement Past Anesthesia/Blood Transfusion Reactions: No Reported Reaction Past Psychological History: Depression Smoking Status: Never smoker Past Alcohol Use History: None Reported Past Drug Use History: None Reported - Past Family History Father History Unknown: Yes Family Medical History: Diabetes Mellitus Additional Family Medical History / Comment(s): etoh Mother Family Medical History: Liver Disease Additional Family Medical History / Comment(s): etoh Brother(s) Additional Family Medical History / Comment(s): depression, etoh General Exam Limitations: no limitations General appearance: alert, in no apparent distress Head exam: Present: atraumatic, normocephalic, normal inspection Eye exam: Present: normal appearance, PERRL, EOMI. Absent: scleral icterus, conjunctival injection, periorbital swelling ENT exam: Present: normal exam, mucous membranes moist Neck exam: Present: normal inspection. Absent: tenderness, meningismus, lymphadenopathy Respiratory exam: Present: normal lung sounds bilaterally. Absent: respiratory distress, wheezes, rales, rhonchi, stridor Cardiovascular Exam: Present: regular rate, normal rhythm, normal heart sounds. Absent: systolic murmur, diastolic murmur, rubs, gallop, clicks GI/Abdominal exam: Present: soft, normal bowel sounds. Absent: distended, tenderness, guarding, rebound, rigid Extremities exam: Present: normal inspection, full ROM, normal capillary refill. Absent: tenderness, pedal edema, joint swelling, calf tenderness Back exam: Present: normal inspection Neurological exam: Present: alert, oriented X3, CN II-XII intact Psychiatric exam: Present: normal affect, normal mood Skin exam: Present: warm, dry, intact, normal color. Absent: rash Course Vital Signs 12/06/16 18:59 Temperature 97.5 F L Pulse Rate 90 Respiratory 18 Rate Blood Pressure 114/56 O2 Sat by Pulse 96 Oximetry - Reevaluation(s) Reevaluation #1: 12/06/16 20:55 Patient feeling better with IV hydration and sugar control. Reevaluation #2: 12/06/16 20:55 Discussed with patient regarding noncompliance EKG Findings - EKG Comments: EKG Findings:: EKG shows normal sinus rhythm 95, ID 180, QRS 78, QTC 457 Medical Decision Making - Medical Decision Making 14 female seen in the ER for evaluation of dehydration, decreased appetite, elevated blood sugar, weakness and positive DKA. Patient be admitted for IV hydration and insulin drip and correcting her electrolyte [place] - Lab Data Result diagrams: 12/06/16 20:00 12/06/16 20:00 Lab Results 12/06/16 12/06/16 12/06/16 Range/Units 20:00 20:00 20:00 WBC 9.1 (3.8-10.6) k/uL RBC 4.02 (3.80-5.40) m/uL Hgb 13.3 (11.4-16.0) gm/dL Hct 43.7 (34.0-46.0) % MCV 108.5 H D (80.0-100.0) fL MCH 33.0 (25.0-35.0) pg MCHC 30.4 L (31.0-37.0) g/dL RDW 13.7 (11.5-15.5) % Plt Count 190 (150-450) k/uL Neutrophils % 79 % Lymphocytes % 13 % Monocytes % 4 % Eosinophils % 2 % Basophils % 1 % Neutrophils # 7.2 (1.3-7.7) k/uL Lymphocytes # 1.2 (1.0-4.8) k/uL Monocytes # 0.4 (0-1.0) k/uL Eosinophils # 0.1 (0-0.7) k/uL Basophils # 0.1 (0-0.2) k/uL Hypochromasia Marked Macrocytosis Marked PT (9.0-12.0) sec INR (<1.1) APTT (22.0-30.0) sec Sodium 128 L (137-145) mmol/L Potassium 5.9 H (3.5-5.1) mmol/L Chloride 95 L (98-107) mmol/L Carbon Dioxide 12 L (22-30) mmol/L Anion Gap 21 mmol/L BUN 31 H (7-17) mg/dL Creatinine 1.00 (0.52-1.04) mg/dL Est GFR (MDRD) Af Amer >60 (>60 ml/min/1.73 sqM) Est GFR (MDRD) Non-Af 55 (>60 ml/min/1.73 sqM) Glucose 832 H* (74-99) mg/dL Calcium 9.0 (8.4-10.2) mg/dL Phosphorus 5.1 H (2.5-4.5) mg/dL Magnesium 1.8 (1.6-2.3) mg/dL Total Bilirubin 1.6 H (0.2-1.3) mg/dL AST 46 H (14-36) U/L ALT 43 (9-52) U/L Alkaline Phosphatase 127 H (38-126) U/L Total Creatine Kinase 65 (30-135) U/L Total Protein 6.8 (6.3-8.2) g/dL Albumin 4.0 (3.5-5.0) g/dL Acetone, Qual Positive (Negative) 12/06/16 Range/Units 20:00 WBC (3.8-10.6) k/uL RBC (3.80-5.40) m/uL Hgb (11.4-16.0) gm/dL Hct (34.0-46.0) % MCV (80.0-100.0) fL MCH (25.0-35.0) pg MCHC (31.0-37.0) g/dL RDW (11.5-15.5) % Plt Count (150-450) k/uL Neutrophils % % Lymphocytes % % Monocytes % % Eosinophils % % Basophils % % Neutrophils # (1.3-7.7) k/uL Lymphocytes # (1.0-4.8) k/uL Monocytes # (0-1.0) k/uL Eosinophils # (0-0.7) k/uL Basophils # (0-0.2) k/uL Hypochromasia Macrocytosis PT 10.9 (9.0-12.0) sec INR 1.1 (<1.1) APTT 20.8 L (22.0-30.0) sec Sodium (137-145) mmol/L Potassium (3.5-5.1) mmol/L Chloride (98-107) mmol/L Carbon Dioxide (22-30) mmol/L Anion Gap mmol/L BUN (7-17) mg/dL Creatinine (0.52-1.04) mg/dL Est GFR (MDRD) Af Amer (>60 ml/min/1.73 sqM) Est GFR (MDRD) Non-Af (>60 ml/min/1.73 sqM) Glucose (74-99) mg/dL Calcium (8.4-10.2) mg/dL Phosphorus (2.5-4.5) mg/dL Magnesium (1.6-2.3) mg/dL Total Bilirubin (0.2-1.3) mg/dL AST (14-36) U/L ALT (9-52) U/L Alkaline Phosphatase (38-126) U/L Total Creatine Kinase (30-135) U/L Total Protein (6.3-8.2) g/dL Albumin (3.5-5.0) g/dL Acetone, Qual (Negative) Critical Care Time Critical Care Time: Yes Total Critical Care Time: 31 Disposition Clinical Impression: DKA (diabetic ketoacidoses) Disposition: ADMITTED IP TO THIS [facility] Condition: Serious Referrals: Diogenes Riddle DO [Primary Care Provider] - 1-2 days
[2016-12-06 20:19] LABS: Basophils # (A) 0.1 k/uL (0-0.2); Basophils % (A) 1 %; CH 31.8; CHCM 29.4; Eosinophils # (A) 0.1 k/uL (0-0.7); Eosinophils % (A) 2 %; HCT 43.7 % (34.0-46.0); HDW 2.62; HGB 13.3 gm/dL (11.4-16.0); Hypochromasia Marked; Luc # (Auto) 0.14; Luc % (Auto) 2; Lymphocytes # (A) 1.2 k/uL (1.0-4.8); Lymphocytes % (A) 13 %; MCHC 30.4 g/dL (31.0-37.0); Macrocytosis Marked; Mean Platelet Volume 8.9; Monocytes # (A) 0.4 k/uL (0-1.0); Monocytes % (A) 4 %; Neutrophils # (A) 7.2 k/uL (1.3-7.7); Neutrophils % (A) 79 %; RBC 4.02 m/uL (3.80-5.40); RDW 13.7 % (11.5-15.5); WBC 9.1 k/uL (3.8-10.6); WBC (Perox) 9.68
[2016-12-06 20:20] LABS: MCV 108.5 fL (80.0-100.0)
[2016-12-06 20:31] LABS: Anion Gap 21 mmol/L; Blood Urea Nitrogen 31 mg/dL (7-17); Carbon Dioxide 12 mmol/L (22-30); Chloride 95 mmol/L (98-107); Non-African American GFR(MDRD) 55 (>60 ml/min/1.73 sqM); Potassium 5.9 mmol/L (3.5-5.1); Sodium 128 mmol/L (137-145)
[2016-12-06 20:32] LABS: ALT 43 U/L (9-52); AST 46 U/L (14-36); Alkaline Phosphatase 127 U/L (38-126); Magnesium 1.8 mg/dL (1.6-2.3); Phosphorous 5.1 mg/dL (2.5-4.5); Total Bilirubin 1.6 mg/dL (0.2-1.3); Total Protein 6.8 g/dL (6.3-8.2)
[2016-12-06 20:40] LABS: Glucose 832 mg/dL (74-99); INR 1.1 (<1.1); Prothrombin Time 10.9 sec (9.0-12.0)
[2016-12-06 20:41] LABS: Partial Thromboplastin Time 20.8 sec (22.0-30.0)
[2016-12-06 20:42] LABS: Creatine Kinase 65 U/L (30-135)
[2016-12-06] MEDS ORDERED: INSULIN REGULAR BOLUS (FROM DRIP BAG) IV ONE (20:51)
[2016-12-06] MEDS ORDERED: SODIUM CHLORIDE 0.9% 1,000 ML IV ONE (20:51)
[2016-12-06 20:55] LABS: Creatine Kinase MB 2.2 ng/mL (0.0-2.4); Troponin I <0.012 ng/mL (0.000-0.034)
[2016-12-06 21:01] LABS: Appearance,Urine Clear (Clear); Bilirubin,Urine Negative (Negative); Glucose,Urine (UA) 4+ (Negative); Leukocyte Esterase,Urine Negative (Negative); Nitrite,Urine Negative (Negative); PH, Urine 5.5 (5.0-8.0); Protein,Urine Negative (Negative); Specific Gravity,Urine 1.022 (1.001-1.035); UA Billing (MACRO vs. MICRO) CHEM; Urobilinogen,Urine <2.0 mg/dL (<2.0)
[2016-12-06 21:24] LABS: Ketones,Urine 2+ (Negative)
[2016-12-06] MEDS: SODIUM CHLORIDE 0.9% 1,000 ML IV SCH (21:48)
[2016-12-06] MEDS: INSULIN REGULAR 100 UNIT in SODIUM CHLORIDE 0.9% 100 ML IV SCH (21:49)
[2016-12-06 22:00] LABS: Glucose,Whole Blood >600 mg/dL (75-99)
[2016-12-06 23:05] LABS: Glucose,Whole Blood 569 mg/dL (75-99)
[2016-12-07] MEDS: SODIUM CHLORIDE 0.9% 1,000 ML IV SCH ×2 (00:01→03:50)
[2016-12-07 00:24] LABS: Glucose,Whole Blood 510 mg/dL (75-99)
[2016-12-07 00:32] LABS: Anion Gap 18 mmol/L; Blood Urea Nitrogen 29 mg/dL (7-17); Carbon Dioxide 16 mmol/L (22-30); Chloride 100 mmol/L (98-107); Non-African American GFR(MDRD) 55 (>60 ml/min/1.73 sqM); Phosphorous 2.8 mg/dL (2.5-4.5); Potassium 4.4 mmol/L (3.5-5.1); Sodium 134 mmol/L (137-145)
[2016-12-07 00:43] LABS: Glucose 543 mg/dL (74-99)
[2016-12-07 01:41] LABS: Glucose,Whole Blood 398 mg/dL (75-99)
[2016-12-07 02:22] LABS: Glucose,Whole Blood 288 mg/dL (75-99)
[2016-12-07 03:46] LABS: Glucose,Whole Blood 161 mg/dL (75-99)
[2016-12-07 05:02] LABS: Anion Gap 10 mmol/L; Blood Urea Nitrogen 25 mg/dL (7-17); Carbon Dioxide 21 mmol/L (22-30); Chloride 106 mmol/L (98-107); Glucose 133 mg/dL (74-99); Non-African American GFR(MDRD) >60 (>60 ml/min/1.73 sqM); Phosphorous 2.3 mg/dL (2.5-4.5); Potassium 3.8 mmol/L (3.5-5.1); Sodium 137 mmol/L (137-145)
[2016-12-07 05:26] LABS: Glucose,Whole Blood 94 mg/dL (75-99)
[2016-12-07] MEDS ORDERED: INSULIN NPH 300 UNIT/3 ML VIAL SQ ONE (05:43)
[2016-12-07 06:03] LABS: Glucose,Whole Blood 84 mg/dL (75-99)
[2016-12-07] MEDS: INSULIN REGULAR 100 UNIT in SODIUM CHLORIDE 0.9% 100 ML IV SCH (06:13)
[2016-12-07] MEDS: INSULIN LISPRO (humaLOG) 300 UNIT/3 ML VIAL SQ SCH ×6 (06:14→17:16)
[2016-12-07 08:31] VITALS: RESP 18
[2016-12-07] MEDS ORDERED: INSULIN GLARGINE 100 UNIT/ML 10 ML VIAL SQ SCH (09:00)
[2016-12-07] MEDS ORDERED: D5-0.45% NACL WITH KCL 20MEQ/L 1,000 ML IV SCH (09:00)
[2016-12-07 11:22] LABS: Glucose,Whole Blood 397 mg/dL (75-99)
[2016-12-07 12:03] LABS: Hemoglobin A1C 9.1 % (4.2-6.1)
--- NOTE | 2016-12-07 14:06 | HP ---
DATE OF ADMISSION: This dictation is both H&P and discharge summary. The patient is a 66-year-old pleasant female who came in with generalized weakness of 2 day duration and also a near syncopal episode, and not feeling well and patient was found to be in DKA, was admitted. Patient is also on DKA protocol with improvement in her diabetic ketoacidosis. The patient was diagnosed with type 1 diabetes mellitus in 1999. Patient has since been on different regimens of insulin. Patient is presently on ( ) at 60 units with sliding scale insulin. Patient does take her insulin regularly she says and her blood sugar is controlled she says whenever she takes insulin, but although patient does not eat on a regular basis because of which her blood sugars can get messed up she says. Patient denied any fever, chills. Patient denied any cough, runny nose, dysuria. No signs or symptoms of infection. Patient had an anion gap of 25 when she came in, now has come down to come 10. Patient has pseudohyponatremia as well as intravascular volume depletion both of which improved. All the electrolyte abnormalities including elevated potassium improved at this point of time. The patient although has elevated MCV, I am not sure of the exact etiology. Patient is already on B-12 and folate supplementation although B-12 level will be obtained before her discharge. Patient is also on high dose of levothyroxine because of which I will also obtain TSH level as well. Because of generalized weakness, which significantly improved at this point time, patient is ambulating and fairly stable at this point of time. Patient is quite depressed for which patient is on Lexapro, which will be switched to fluoxetine and patient's regimen will be switched to 37 units of Lantus with premeal insulin. Patient is supposed to take Lantus starting tomorrow. Patient received Lantus today already and instructions will be provided accordingly. Patient will follow with Dr. Diogenes Riddle in 3 to 7 days. REVIEW OF SYSTEMS: GENERAL: As described in HPI. CONSTITUTIONAL: No fever, no malaise, no fatigue. HEENT: No recent visual problems or hearing problems. Denied any sore throat. CARDIOVASCULAR: No chest pain, orthopnea, PND, no palpitations, no syncope. PULMONARY: No shortness of breath, no cough, no hemoptysis. GASTROINTESTINAL: No diarrhea, no nausea, no vomiting, no abdominal pain. Normoactive bowel sounds. NEUROLOGICAL: No headaches, no weakness, no numbness. HEMATOLOGICAL: Denies any bleeding or petechiae. GENITOURINARY: Denies any burning micturition, frequency, or urgency. MUSCULOSKELETAL/RHEUMATOLOGICAL: Denies any joint pain, swelling, or any muscle pain. ENDOCRINE: Denies any polyuria or polydipsia. The rest of the 14 point review of systems is negative. Home medications include: 1. Ramipril. 2. Vitamin B. 3. Ropinirole. 4. Insulin regimen as mentioned above. 5. Levothyroxine. 6. Allopurinol. 7. Buspirone. 8. Amoxicillin, which is being discontinued at this point of time. 9. ( ). 10. Thiamine. ALLERGIES: Allergic FORMALDEHYDE, NICKEL, SULFA DRUGS. PAST MEDICAL HISTORY: Significant for diabetes mellitus, hypothyroidism, cholecystectomy, hernia repair, joint replacement surgery, depression, obesity, restless leg syndrome. SOCIAL HISTORY: Denied any smoking, alcohol abuse or any drug abuse. FAMILY HISTORY: Father had diabetes mellitus, alcohol abuse history in father. Mother had alcohol abuse, history of liver disease secondary to that, brother had depression. PHYSICAL EXAMINATION: VITAL SIGNS: Temperature 96.4, pulse of 68, respiratory rate of 18, blood pressure is 119/60, saturating at 94% on room air. GENERAL: The patient is morbidly obese. Alert and oriented x3. HEENT: Pupils are round and equally reacting to light. EOMI. No scleral icterus. No conjunctival pallor. Normocephalic, atraumatic. No pharyngeal erythema. No thyromegaly. CARDIOVASCULAR: S1 and S2 present. No murmurs, rubs, or gallops. PULMONARY: Chest is clear to auscultation, no wheezing or crackles. ABDOMEN: Soft, nontender, nondistended, normoactive bowel sounds. No palpable organomegaly. MUSCULOSKELETAL: No joint swelling or deformity. EXTREMITIES: No cyanosis, clubbing, or pedal edema. NEUROLOGICAL: Gross neurological examination did not reveal any focal deficits. SKIN: No rashes. LABORATORY DATA: CBC, CMP significant abnormalities on admission include low sodium of 128 improved at this point of time. Potassium was 5.9, improved to 3.8. Bicarbonate of 12, improved to 21. Anion gap of 21, which improved to 10. Blood glucose was 832 improved to 133. Phosphorus improved as well. Patient's urine is positive for 4+ glucose, 2+ ketones. Serum quality acetone is positive as well. MCV is 108, although patient is already B-12 and folate supplementation at home. ASSESSMENT AND PLAN: 1. Diabetic ketoacidosis , significantly improved ketoacidosis and patient has type 1 diabetes mellitus leading to diabetes mellitus. I am changing the insulin regimen to 37 units of Lantus with premeal insulin 12 units because the patient is not able to follow her previous regimen very well. 2. Hypothyroidism. Since we are changing the regimen, I want to watch her before discharge until later in the day before I discharge her. 3. Hypothyroidism. Continue with levothyroxine . I will obtain TSH. 4. Generalized weakness secondary to diabetic ketoacidosis, which improved at this point of time. 5. Depression for which patient will be started on fluoxetine. 6. Restless leg syndrome. Continue ropinirole. 7. Elevated MCV. I will obtain B-12 level. Patient is already on vitamin B-12 supplementation presently. This dictation is both H&P and discharge summary. DISCHARGE DIET: Cardiac ADA 1800 calorie diet. Follow up with Dr. Diogenes Riddle in 3 to 7 days. Patient follow with Dr. Asha Carbajal as well. Patient has an appointment of Deon ( ), which she will switch it to an earlier appointment. ( ) Accu-Cheks. Patient does not have any signs or symptoms of infection at this point of time.
[2016-12-07 15:37] VITALS: BP 121/60; PULSE 83; TEMP 98.5
[2016-12-07 16:34] LABS: Glucose,Whole Blood 267 mg/dL (75-99)
[2016-12-07 17:36] VITALS: BMI 38.6
== END 2016-12-07 18:44 | disposition home or self-care (01) | DRG 639 ==
LOC: EC 18:53 → 6SEL 20:51
PROVIDERS: ADMIT Hospitalist; ATTEND Hospitalist
DX: E10.10 Type 1 diabetes mellitus with ketoacidosis without coma (principal); I50.9 Heart failure, unspecified; F32.9 Major depressive disorder, single episode, unspecified; E03.9 Hypothyroidism, unspecified; E86.9 Volume depletion, unspecified; G25.81 Restless legs syndrome; E66.9 Obesity, unspecified; M19.90 Unspecified osteoarthritis, unspecified site; Z68.38 Body mass index [BMI] 38.0-38.9, adult; Z79.4 Long term (current) use of insulin; Z79.899 Other long term (current) drug therapy; Z96.652 Presence of left artificial knee joint; Z88.2 Allergy status to sulfonamides
CPT/HCPCS: 36415; 80051; 80053; 81003; 82009; 82550; 82553; 82565; 82607; 82947; 83036; 83735; 84100; 84443; 84484; 84520; 85025; 85610; 85730; 87077; 87086; 87186; 93005; 96360; 96361; 99291

== ENCOUNTER 2017-01-11 22:37 | Inpatient (IN) | payer MEDICARE, BC ==
[2017-01-11] MEDS ORDERED: SODIUM CHLORIDE 0.9% 1,000 ML IV STA ×2 (23:18)
[2017-01-11] MEDS ORDERED: ONDANSETRON 4 MG/2 ML VIAL IVP STA (23:18)
[2017-01-11 23:47] LABS: Glucose,Whole Blood >600 mg/dL (75-99)
[2017-01-11 23:51] LABS: Basophils # (A) 0.1 k/uL (0-0.2); Basophils % (A) 1 %; CH 32.2; CHCM 31.5; Eosinophils # (A) 0.1 k/uL (0-0.7); Eosinophils % (A) 2 %; HCT 36.4 % (34.0-46.0); HDW 2.98; HGB 11.6 gm/dL (11.4-16.0); Hypochromasia Slight; Luc # (Auto) 0.13; Luc % (Auto) 2; Lymphocytes # (A) 1.4 k/uL (1.0-4.8); Lymphocytes % (A) 23 %; MCH 32.9 pg (25.0-35.0); MCHC 31.9 g/dL (31.0-37.0); Macrocytosis Slight; Mean Platelet Volume 10.1; Monocytes # (A) 0.6 k/uL (0-1.0); Monocytes % (A) 9 %; Neutrophils # (A) 3.8 k/uL (1.3-7.7); Neutrophils % (A) 63 %; RBC 3.53 m/uL (3.80-5.40); RDW 14.9 % (11.5-15.5); VBG PH 7.36 (7.31-7.41); WBC 6.1 k/uL (3.8-10.6)
[2017-01-11 23:52] LABS: Appearance,Urine Cloudy (Clear); Bilirubin,Urine Negative (Negative); Glucose,Urine (UA) 4+ (Negative); Ketones,Urine Negative (Negative); Leukocyte Esterase,Urine Negative (Negative); Mucus,Urine Rare /hpf; Nitrite,Urine Negative (Negative); PH, Urine 6.5 (5.0-8.0); Particle Count 582; Protein,Urine Negative (Negative); RBC,Urine <1 /hpf (0-5); Specific Gravity,Urine 1.022 (1.001-1.035); Squamous Epithelial Cell,Urine <1 /hpf (0-4); UA Billing (MACRO vs. MICRO) MICRO; Urobilinogen,Urine <2.0 mg/dL (<2.0); WBC,Urine 1 /hpf (0-5)
[2017-01-11 23:59] LABS: MCV 103.2 fL (80.0-100.0)
[2017-01-12] MEDS ORDERED: INSULIN REGULAR 100 UNIT/ML VIAL SQ ONE (00:25)
[2017-01-12] MEDS ORDERED: INSULIN REGULAR 100 UNIT/ML VIAL IV ONE (00:25)
[2017-01-12 00:33] LABS: ALT 43 U/L (9-52); AST 24 U/L (14-36); Alkaline Phosphatase 99 U/L (38-126); Amylase <30 U/L (30-110); Anion Gap 10 mmol/L; Blood Urea Nitrogen 23 mg/dL (7-17); C Reactive Protein 10.3 mg/L (<10.0); Calcium 9.2 mg/dL (8.4-10.2); Carbon Dioxide 19 mmol/L (22-30); Chloride 98 mmol/L (98-107); Non-African American GFR(MDRD) >60 (>60 ml/min/1.73 sqM); Potassium 4.4 mmol/L (3.5-5.1); Sodium 127 mmol/L (137-145); Total Bilirubin 1.3 mg/dL (0.2-1.3); Total Protein 5.9 g/dL (6.3-8.2)
[2017-01-12 00:40] LABS: Glucose 939 mg/dL (74-99)
[2017-01-12] MEDS ORDERED: INSULIN REGULAR 100 UNIT in SODIUM CHLORIDE 0.9% 100 ML IV SCH (00:45)
[2017-01-12] MEDS ORDERED: SODIUM CHLORIDE 0.9% 1,000 ML IV SCH ×3 (00:45→05:30)
[2017-01-12] MEDS ORDERED: RX INFO: IV CONTRAST WAS GIVEN 1 EACH MISC MISCELLANE PRN (01:25)
--- NOTE | 2017-01-12 01:36 | ED ---
Nausea/Vomiting/Diarrhea HPI - General Chief complaint: Nausea/Vomiting/Diarrhea Stated complaint: diarrhea; blood in stool Time Seen by Provider: 01/11/17 22:45 Source: patient Mode of arrival: wheelchair Limitations: no limitations - History of Present Illness Initial comments: Extremities all female complaining about diarrhea for the last 4 days she said she also noticed that her for blood and she wiped there was no blood in stool and stool was not black tarry. Also complaining about left flank pain and generalized abdominal pain, been nauseous she is also complaining about chest pain she had yesterday and she was also short winded there was no pleuritic chest pain and chest pain has resolved today today mainly she just strained her heart rate increase her to come to the ER his high sugar was greater than 600 initially and well lab confirmed that there was 939 - Related Data Home Medications Medication Instructions Recorded Confirmed Ramipril [Altace] 2.5 mg PO DAILY 01/19/16 01/11/17 Vit B Comp No.3/Folic/C/Biotin 1 tab PO W/SUPPER 01/19/16 01/11/17 [[facility] Rx Tablet] rOPINIRole HCL 0.5 mg PO BID 01/19/16 01/11/17 LORazepam [Ativan] 0.5 mg PO DAILY PRN 05/01/16 01/11/17 Levothyroxine Sodium [Synthroid] 200 mcg PO DAILY 10/03/16 01/11/17 Allopurinol [Zyloprim] 100 mg PO DAILY 11/05/16 01/11/17 busPIRone HCl [Buspar] 20 mg PO W/SUPPER 11/05/16 01/11/17 Thiamine HCl [Vitamin B-1] 50 mg PO DAILY 12/06/16 01/11/17 Previous Rx's Medication Instructions Recorded FLUoxetine HCL [PROzac ORAL SOLN] 20 mg PO DAILY #30 ml 12/07/16 INSULIN LISPRO (humaLOG) [HumaLOG] 15 units SQ AC-TID #1 vial 12/07/16 Insulin Glargine [Lantus] 45 unit SQ DAILY #1 vial 12/07/16 Allergies Allergy/AdvReac Type Severity Reaction Status Date / Time formaldehyde AdvReac Itching Verified 01/11/17 22:44 nickel AdvReac Itching Verified 01/11/17 22:44 quaternium AdvReac Itching Verified 01/11/17 22:44 Sulfa (Sulfonamide AdvReac Itching Verified 01/11/17 22:44 Antibiotics) Review of Systems ROS Statement: Those systems with pertinent positive or pertinent negative responses have been documented in the HPI. ROS Other: All systems not noted in ROS Statement are negative. Past Medical History Past Medical History: Heart Failure, Diabetes Mellitus, Osteoarthritis (OA), Thyroid Disorder Additional Past Medical History / Comment(s): hypothyroid History of Any Multi-Drug Resistant Organisms: None Reported Past Surgical History: Cholecystectomy, Hernia Repair, Joint Replacement Additional Past Surgical History / Comment(s): kidney stones, left knee replacement Past Anesthesia/Blood Transfusion Reactions: No Reported Reaction Past Psychological History: Depression Smoking Status: Never smoker Past Alcohol Use History: None Reported Past Drug Use History: None Reported - Past Family History Father History Unknown: Yes Family Medical History: Diabetes Mellitus Additional Family Medical History / Comment(s): etoh Mother Family Medical History: Liver Disease Additional Family Medical History / Comment(s): etoh Brother(s) Additional Family Medical History / Comment(s): depression, etoh General Exam - General Exam Comments Initial Comments: General: The patient is awake and alert, in no distress, and does not appear acutely ill. Skin: Skin is warm and dry and no rashes or lesions are noted. Eye: Pupils are equal, round and reactive to light, extra-ocular movements are intact; there is normal conjunctiva bilaterally. Ears, nose, mouth and throat: There are moist mucous membranes and no oral lesions. Neck: The neck is supple, there is no tenderness or JVD. Cardiovascular: There is a regular rate and rhythm. No murmur, rub or gallop is appreciated. Respiratory: To auscultation bilateral, no wheezing no rhonchi no distress respiratory shultz noticed Gastrointestinal: Soft, non-distended, non-tender abdoman , positive bowel sounds she is slightly tender over the left flank area Back: There is no tenderness to palpation in the midline. There is no obvious deformity. Musculoskeletal: Normal ROM, no tenderness, There is no pedal edema. There is no calf tenderness or swelling. No cords were appreciated. Neurological: CN II-XII intact, Cranial nerves III through XII are intact. There are no obvious motor or sensory deficits. Coordination appears grossly intact. Speech is normal. Psychiatric: Cooperative, appropriate mood & affect, normal judgment. Limitations: no limitations Course Vital Signs 01/11/17 22:38 Temperature 98.3 F Pulse Rate 82 Respiratory 18 Rate Blood Pressure 152/74 O2 Sat by Pulse 98 Oximetry Her labs were reviewed, CBC looks normal sugar was 127 and CO2 is 19 glucose is 939 urinalysis is negative. C-reactive protein is 10.[address] of the abdomen is pending considering mild metabolic acidosis stream or severe hyperglycemia she be admitted to Dr. Munroe service since he is covering Dr. Diogenes Riddle Medical Decision Making - Lab Data Result diagrams: 01/11/17 23:30 01/11/17 23:30 Lab Results 01/11/17 01/11/17 01/11/17 Range/Units 23:30 23:30 23:30 WBC 6.1 (3.8-10.6) k/uL RBC 3.53 L (3.80-5.40) m/uL Hgb 11.6 (11.4-16.0) gm/dL Hct 36.4 (34.0-46.0) % MCV 103.2 H D (80.0-100.0) fL MCH 32.9 (25.0-35.0) pg MCHC 31.9 (31.0-37.0) g/dL RDW 14.9 (11.5-15.5) % Plt Count 162 (150-450) k/uL Neutrophils % 63 % Lymphocytes % 23 % Monocytes % 9 % Eosinophils % 2 % Basophils % 1 % Neutrophils # 3.8 (1.3-7.7) k/uL Lymphocytes # 1.4 (1.0-4.8) k/uL Monocytes # 0.6 (0-1.0) k/uL Eosinophils # 0.1 (0-0.7) k/uL Basophils # 0.1 (0-0.2) k/uL Hypochromasia Slight Macrocytosis Slight VBG pH 7.36 (7.31-7.41) VBG pCO2 38 (37-51) mmHg VBG HCO3 21 L (24-28) mmol/L Sodium 127 L (137-145) mmol/L Potassium 4.4 (3.5-5.1) mmol/L Chloride 98 (98-107) mmol/L Carbon Dioxide 19 L (22-30) mmol/L Anion Gap 10 mmol/L BUN 23 H (7-17) mg/dL Creatinine 0.80 (0.52-1.04) mg/dL Est GFR (MDRD) Af Amer >60 (>60 ml/min/1.73 sqM) Est GFR (MDRD) Non-Af >60 (>60 ml/min/1.73 sqM) Glucose 939 H* (74-99) mg/dL POC Glucose (mg/dL) (75-99) mg/dL POC Glu Recreation Program Coordinator ID Calcium 9.2 (8.4-10.2) mg/dL Total Bilirubin 1.3 (0.2-1.3) mg/dL AST 24 (14-36) U/L ALT 43 (9-52) U/L Alkaline Phosphatase 99 (38-126) U/L C-Reactive Protein 10.3 H (<10.0) mg/L Total Protein 5.9 L (6.3-8.2) g/dL Albumin 3.5 (3.5-5.0) g/dL Amylase <30 L (30-110) U/L Lipase 44 (23-300) U/L Urine Color Urine Appearance (Clear) Urine pH (5.0-8.0) Ur Specific [place] (1.001-1.035) Urine Protein (Negative) Urine Glucose (UA) (Negative) Urine Ketones (Negative) Urine Blood (Negative) Urine Nitrite (Negative) Urine Bilirubin (Negative) Urine Urobilinogen (<2.0) mg/dL Ur Leukocyte Esterase (Negative) Urine RBC (0-5) /hpf Urine WBC (0-5) /hpf Ur Squamous Epith Cells (0-4) /hpf Urine Mucus (None) /hpf 01/11/17 01/11/17 01/12/17 Range/Units 23:30 23:45 01:48 WBC (3.8-10.6) k/uL RBC (3.80-5.40) m/uL Hgb (11.4-16.0) gm/dL Hct (34.0-46.0) % MCV (80.0-100.0) fL MCH (25.0-35.0) pg MCHC (31.0-37.0) g/dL RDW (11.5-15.5) % Plt Count (150-450) k/uL Neutrophils % % Lymphocytes % % Monocytes % % Eosinophils % % Basophils % % Neutrophils # (1.3-7.7) k/uL Lymphocytes # (1.0-4.8) k/uL Monocytes # (0-1.0) k/uL Eosinophils # (0-0.7) k/uL Basophils # (0-0.2) k/uL Hypochromasia Macrocytosis VBG pH (7.31-7.41) VBG pCO2 (37-51) mmHg VBG HCO3 (24-28) mmol/L Sodium (137-145) mmol/L Potassium (3.5-5.1) mmol/L Chloride (98-107) mmol/L Carbon Dioxide (22-30) mmol/L Anion Gap mmol/L BUN (7-17) mg/dL Creatinine (0.52-1.04) mg/dL Est GFR (MDRD) Af Amer (>60 ml/min/1.73 sqM) Est GFR (MDRD) Non-Af (>60 ml/min/1.73 sqM) Glucose (74-99) mg/dL POC Glucose (mg/dL) >600 H 554 H (75-99) mg/dL POC Glu Recreation Program Coordinator ID [place], [place], [place] Calcium (8.4-10.2) mg/dL Total Bilirubin (0.2-1.3) mg/dL AST (14-36) U/L ALT (9-52) U/L Alkaline Phosphatase (38-126) U/L C-Reactive Protein (<10.0) mg/L Total Protein (6.3-8.2) g/dL Albumin (3.5-5.0) g/dL Amylase (30-110) U/L Lipase (23-300) U/L Urine Color Light Yellow Urine Appearance Cloudy H (Clear) Urine pH 6.5 (5.0-8.0) Ur Specific [place] 1.022 (1.001-1.035) Urine Protein Negative (Negative) Urine Glucose (UA) 4+ H (Negative) Urine Ketones Negative (Negative) Urine Blood Negative (Negative) Urine Nitrite Negative (Negative) Urine Bilirubin Negative (Negative) Urine Urobilinogen <2.0 (<2.0) mg/dL Ur Leukocyte Esterase Negative (Negative) Urine RBC <1 (0-5) /hpf Urine WBC 1 (0-5) /hpf Ur Squamous Epith Cells <1 (0-4) /hpf Urine Mucus Rare H (None) /hpf 01/12/17 Range/Units 02:51 WBC (3.8-10.6) k/uL RBC (3.80-5.40) m/uL Hgb (11.4-16.0) gm/dL Hct (34.0-46.0) % MCV (80.0-100.0) fL MCH (25.0-35.0) pg MCHC (31.0-37.0) g/dL RDW (11.5-15.5) % Plt Count (150-450) k/uL Neutrophils % % Lymphocytes % % Monocytes % % Eosinophils % % Basophils % % Neutrophils # (1.3-7.7) k/uL Lymphocytes # (1.0-4.8) k/uL Monocytes # (0-1.0) k/uL Eosinophils # (0-0.7) k/uL Basophils # (0-0.2) k/uL Hypochromasia Macrocytosis VBG pH (7.31-7.41) VBG pCO2 (37-51) mmHg VBG HCO3 (24-28) mmol/L Sodium (137-145) mmol/L Potassium (3.5-5.1) mmol/L Chloride (98-107) mmol/L Carbon Dioxide (22-30) mmol/L Anion Gap mmol/L BUN (7-17) mg/dL Creatinine (0.52-1.04) mg/dL Est GFR (MDRD) Af Amer (>60 ml/min/1.73 sqM) Est GFR (MDRD) Non-Af (>60 ml/min/1.73 sqM) Glucose (74-99) mg/dL POC Glucose (mg/dL) 435 H (75-99) mg/dL POC Glu Recreation Program Coordinator ID [place], [place] Calcium (8.4-10.2) mg/dL Total Bilirubin (0.2-1.3) mg/dL AST (14-36) U/L ALT (9-52) U/L Alkaline Phosphatase (38-126) U/L C-Reactive Protein (<10.0) mg/L Total Protein (6.3-8.2) g/dL Albumin (3.5-5.0) g/dL Amylase (30-110) U/L Lipase (23-300) U/L Urine Color Urine Appearance (Clear) Urine pH (5.0-8.0) Ur Specific [place] (1.001-1.035) Urine Protein (Negative) Urine Glucose (UA) (Negative) Urine Ketones (Negative) Urine Blood (Negative) Urine Nitrite (Negative) Urine Bilirubin (Negative) Urine Urobilinogen (<2.0) mg/dL Ur Leukocyte Esterase (Negative) Urine RBC (0-5) /hpf Urine WBC (0-5) /hpf Ur Squamous Epith Cells (0-4) /hpf Urine Mucus (None) /hpf Disposition Clinical Impression: Hyperglycemia, Metabolic acidosis, Abdominal pain, Diarrhea Disposition: ADMITTED IP TO THIS [facility] Condition: Good Referrals: Diogenes Riddle DO [Primary Care Provider] - 1-2 days
[2017-01-12 01:50] LABS: Glucose,Whole Blood 554 mg/dL (75-99)
[2017-01-12] MEDS ORDERED: POTASSIUM CHLORIDE ORAL LIQUID 40 MEQ/30 ML CUP PO ONE (02:27)
[2017-01-12 02:53] LABS: Glucose,Whole Blood 435 mg/dL (75-99)
--- NOTE | 2017-01-12 03:01 | XR ---
EXAM: XR Chest, 2 Views CLINICAL HISTORY: Reason: Pain TECHNIQUE: Frontal and lateral views of the chest. COMPARISON: 11/05/16 FINDINGS: Lungs: Left basilar atelectasis. Pleural space: Unremarkable. No pneumothorax. Heart: Unremarkable. No cardiomegaly. Mediastinum: Unremarkable. Bones/joints: Multilevel degenerative changes of the spine. IMPRESSION: Left basilar atelectasis.
--- NOTE | 2017-01-12 03:03 | CT ---
EXAM: CT Abdomen and Pelvis With Intravenous Contrast CLINICAL HISTORY: Pain and diarrhea TECHNIQUE: Axial computed tomography images of the abdomen and pelvis with intravenous contrast. CTDI is 39.2 mGy and DLP is 2680.2 mGy-cm. This CT exam was performed using one or more of the following dose reduction techniques: automated exposure control, adjustment of the mA and/or kV according to patient size, and/or use of iterative reconstruction technique. COMPARISON: None FINDINGS: Lower thorax: 5.5 mm subpleural pulmonary nodule in the right middle lobe. ABDOMEN: Liver: Unremarkable. No mass. Gallbladder and bile ducts: Cholecystectomy. No ductal dilation. Pancreas: Unremarkable. No mass. No ductal dilation. Spleen: Unremarkable. No splenomegaly. Adrenals: Unremarkable. No mass. Kidneys and ureters: 1.7 cm right renal cyst. No hydronephrosis. Stomach and bowel: Scattered colonic diverticulosis without acute inflammation. No obstruction. No mucosal thickening. Appendix: No findings to suggest acute appendicitis. PELVIS: Bladder: Unremarkable. No mass. Reproductive: Unremarkable as visualized. ABDOMEN and PELVIS: Intraperitoneal space: Unremarkable. No free air. No significant fluid collection. Bones/joints: Moderate multilevel spondylosis throughout the lumbar spine. Grade 1 anterolisthesis of L4 on L5. No acute fracture. No dislocation. Soft tissues: Bilateral fat-containing inguinal hernias. Vasculature: Unremarkable. No abdominal aortic aneurysm. Lymph nodes: Unremarkable. No enlarged lymph nodes. IMPRESSION: No acute findings. Scattered colonic diverticulosis. 5.5 mm pulmonary nodule in the right middle lobe. In low risk patient, no further follow-up is needed. In high-risk patient, recommend follow- up CT in 12 months.
[2017-01-12 03:56] LABS: Glucose,Whole Blood 291 mg/dL (75-99)
[2017-01-12 04:14] VITALS: BMI 39.9
[2017-01-12 04:44] LABS: Anion Gap 12 mmol/L; Blood Urea Nitrogen 20 mg/dL (7-17); Carbon Dioxide 20 mmol/L (22-30); Chloride 107 mmol/L (98-107); Glucose 198 mg/dL (74-99); Non-African American GFR(MDRD) >60 (>60 ml/min/1.73 sqM); Phosphorous 2.5 mg/dL (2.5-4.5); Potassium 3.9 mmol/L (3.5-5.1); Sodium 139 mmol/L (137-145)
[2017-01-12 05:15] LABS: Glucose,Whole Blood 118 mg/dL (75-99)
[2017-01-12] MEDS ORDERED: traMADol 50 MG TAB PO PRN (05:17)
[2017-01-12] MEDS ORDERED: LEVOTHYROXINE 125 MCG TAB PO SCH (06:30)
[2017-01-12] MEDS: INSULIN LISPRO (humaLOG) 300 UNIT/3 ML VIAL SQ SCH ×4 (06:57→11:56)
[2017-01-12] MEDS ORDERED: ALLOPURINOL 100 MG TAB PO SCH (09:00)
[2017-01-12] MEDS ORDERED: THIAMINE 100 MG TAB PO SCH (09:00)
[2017-01-12] MEDS ORDERED: FLUoxetine ORAL SOLN 20 MG/5 ML CUP PO SCH (09:00)
[2017-01-12] MEDS ORDERED: INSULIN GLARGINE 100 UNIT/ML 10 ML VIAL SQ SCH ×3 (09:00→21:00)
[2017-01-12 10:06] VITALS: PULSE 75; RESP 18
[2017-01-12 11:30] LABS: Glucose,Whole Blood 141 mg/dL (75-99)
[2017-01-12 13:38] VITALS: BP 120/68; TEMP 98.2
--- NOTE | 2017-01-12 13:41 | P.HPIM ---
History of Present Illness Patient is a very pleasant 66-year-old female follows with Dr. Diogenes Riddle came in with complaints of elevated blood sugars. Patient was having nausea vomiting and diarrhea and body aches secondary to viral gastroenteritis going on for about couple days since her diarrhea patient started drinking Gatorade which has glucose in it which elevated her blood sugars normally her blood sugars are mostly under control on her home regimen of 48 units of Lantus and 15 -16 units of pre-meal insulin. Patient had an episode of small amount of blood when she wiped after bowel movement.. Patient denied any such bloody bowel stools today patient did not move her bowels today. Patient probably has hemorrhoids with self-limiting bleeding. Patient's blood sugars have come down patient was on IV insulin patient was not on DKA protocol and patient did not have DKA. Patient will be resumed on her home regimen patient is requesting some medication for her headache which is chronic. For which I'm giving her prescription for Fioricet and patient were discharged today. Patient's symptoms of abdominal pain which is nonspecific completely resolved. Nausea vomiting resolved. Review of Systems REVIEW OF SYSTEMS: CONSTITUTIONAL: No fever, no malaise, no fatigue. HEENT: No recent visual problems or hearing problems. Denied any sore throat. CARDIOVASCULAR: No chest pain, orthopnea, PND, no palpitations, no syncope. PULMONARY: No shortness of breath, no cough, no hemoptysis. GASTROINTESTINAL: As described in HPI NEUROLOGICAL: No headaches, no weakness, no numbness. HEMATOLOGICAL: Denies any bleeding or petechiae. GENITOURINARY: Denies any burning micturition, frequency, or urgency. MUSCULOSKELETAL/RHEUMATOLOGICAL: Denies any joint pain, swelling, or any muscle pain. ENDOCRINE: Denies any polyuria or polydipsia. The rest of the 14-point review of systems is negative. Past Medical History Past Medical History: Heart Failure, Diabetes Mellitus, Osteoarthritis (OA), Thyroid Disorder Additional Past Medical History / Comment(s): hypothyroid, pt reported gout, neuropathy History of Any Multi-Drug Resistant Organisms: None Reported Past Surgical History: Cholecystectomy, Hernia Repair, Joint Replacement Additional Past Surgical History / Comment(s): kidney stones, left knee replacement Past Anesthesia/Blood Transfusion Reactions: No Reported Reaction Past Psychological History: Depression Additional Psychological History / Comment(s): 12/21/15 Smoking Status: Never smoker Past Alcohol Use History: None Reported Past Drug Use History: None Reported - Past Family History Father History Unknown: Yes Family Medical History: Diabetes Mellitus Additional Family Medical History / Comment(s): etoh Mother Family Medical History: Liver Disease Additional Family Medical History / Comment(s): etoh Brother(s) Additional Family Medical History / Comment(s): depression, etoh Medications and Allergies Home Medications Medication Instructions Recorded Confirmed Type Ramipril [Altace] 2.5 mg PO DAILY 01/19/16 01/12/17 History Vit B Comp No.3/Folic/C/Biotin 1 tab PO W/SUPPER 01/19/16 01/12/17 History [Jillian-Davon Rx Tablet] rOPINIRole HCL 0.5 mg PO BID 01/19/16 01/12/17 History LORazepam [Ativan] 0.5 mg PO DAILY PRN 05/01/16 01/12/17 History Levothyroxine Sodium [Synthroid] 200 mcg PO DAILY 10/03/16 01/12/17 History Thiamine HCl [Vitamin B-1] 50 mg PO DAILY 12/06/16 01/12/17 History Allopurinol [Zyloprim] 300 mg PO DAILY 01/12/17 01/12/17 History INSULIN LISPRO (humaLOG) [HumaLOG] See Protocol SQ AC-TID 01/12/17 01/12/17 History Insulin Glargine,Hum.rec.anlog 48 units SQ HS 01/12/17 01/12/17 History [Tougirma Solostar] Levothyroxine Sodium [Synthroid] 50 mcg PO DAILY 01/12/17 01/12/17 History busPIRone HCL 15 mg PO BID 01/12/17 01/12/17 History traMADol HCL [Ultram] 50 mg PO Q6HR PRN 01/12/17 01/12/17 History Allergies Allergy/AdvReac Type Severity Reaction Status Date / Time formaldehyde AdvReac Itching Verified 01/12/17 11:38 nickel AdvReac Itching Verified 01/12/17 11:38 quaternium AdvReac Itching Verified 01/12/17 11:38 Sulfa (Sulfonamide AdvReac Itching Verified 01/12/17 11:38 Antibiotics) Physical Exam Vitals: Vital Signs Temp Pulse Pulse Resp BP BP Pulse Ox 01/12/17 08:00 97.5 F L 75 18 119/63 97 01/12/17 04:00 97.3 F L 79 16 148/76 97 01/12/17 03:36 97.9 F 78 16 140/78 98 01/11/17 22:38 98.3 F 82 18 152/74 98 Intake and Output 01/11/17 01/12/17 01/12/17 22:59 06:59 14:59 Intake Total 340 480 Balance 340 480 Intake: IV 220 Sodium Chloride 0.9% 1, 20 000 ml @ 20 mls/hr IV . Q24H JAVY Rx#:[id number] Sodium Chloride 0.9% 1, 200 000 ml @ 200 mls/hr IV . Q5H JAVY Rx#:[id number] Oral 120 480 Other: Voiding Method Toilet Toilet Weight 124.284 kg 126.2 kg PHYSICAL EXAMINATION: GENERAL: The patient is alert and oriented x3, not in any acute distress. Well developed, well nourished. HEENT: Pupils are round and equally reacting to light. EOMI. No scleral icterus. No conjunctival pallor. Normocephalic, atraumatic. No pharyngeal erythema. No thyromegaly. CARDIOVASCULAR: S1 and S2 present. No murmurs, rubs, or gallops. PULMONARY: Chest is clear to auscultation, no wheezing or crackles. ABDOMEN: Soft, nontender, nondistended, normoactive bowel sounds. No palpable organomegaly. MUSCULOSKELETAL: No joint swelling or deformity. EXTREMITIES: No cyanosis, clubbing, or pedal edema. NEUROLOGICAL: Gross neurological examination did not reveal any focal deficits. SKIN: No rashes. Results CBC & Chem 7: 01/11/17 23:30 01/12/17 04:12 Labs: Abnormal Lab Results - Last 24 Hours (Table) 01/11/17 01/11/17 01/11/17 Range/Units 23:30 23:30 23:30 RBC 3.53 L (3.80-5.40) m/uL MCV 103.2 H D (80.0-100.0) fL VBG HCO3 21 L (24-28) mmol/L Sodium 127 L (137-145) mmol/L Carbon Dioxide 19 L (22-30) mmol/L BUN 23 H (7-17) mg/dL Glucose 939 H* (74-99) mg/dL POC Glucose (mg/dL) (75-99) mg/dL C-Reactive Protein 10.3 H (<10.0) mg/L Total Protein 5.9 L (6.3-8.2) g/dL Amylase <30 L (30-110) U/L Urine Appearance (Clear) Urine Glucose (UA) (Negative) Urine Mucus (None) /hpf 01/11/17 01/11/17 01/12/17 Range/Units 23:30 23:45 01:48 RBC (3.80-5.40) m/uL MCV (80.0-100.0) fL VBG HCO3 (24-28) mmol/L Sodium (137-145) mmol/L Carbon Dioxide (22-30) mmol/L BUN (7-17) mg/dL Glucose (74-99) mg/dL POC Glucose (mg/dL) >600 H 554 H (75-99) mg/dL C-Reactive Protein (<10.0) mg/L Total Protein (6.3-8.2) g/dL Amylase (30-110) U/L Urine Appearance Cloudy H (Clear) Urine Glucose (UA) 4+ H (Negative) Urine Mucus Rare H (None) /hpf 01/12/17 01/12/17 01/12/17 Range/Units 02:51 03:55 04:12 RBC (3.80-5.40) m/uL MCV (80.0-100.0) fL VBG HCO3 (24-28) mmol/L Sodium (137-145) mmol/L Carbon Dioxide 20 L (22-30) mmol/L BUN 20 H (7-17) mg/dL Glucose 198 H (74-99) mg/dL POC Glucose (mg/dL) 435 H 291 H (75-99) mg/dL C-Reactive Protein (<10.0) mg/L Total Protein (6.3-8.2) g/dL Amylase (30-110) U/L Urine Appearance (Clear) Urine Glucose (UA) (Negative) Urine Mucus (None) /hpf 01/12/17 01/12/17 Range/Units 05:13 11:28 RBC (3.80-5.40) m/uL MCV (80.0-100.0) fL VBG HCO3 (24-28) mmol/L Sodium (137-145) mmol/L Carbon Dioxide (22-30) mmol/L BUN (7-17) mg/dL Glucose (74-99) mg/dL POC Glucose (mg/dL) 118 H 141 H (75-99) mg/dL C-Reactive Protein (<10.0) mg/L Total Protein (6.3-8.2) g/dL Amylase (30-110) U/L Urine Appearance (Clear) Urine Glucose (UA) (Negative) Urine Mucus (None) /hpf Thrombosis Risk Factor Assmnt - Choose All That Apply Any of the Below Risk Factors Present?: Yes Each Factor Represents 1 point: Obesity (BMI >25) Other Risk Factors: Yes Each Risk Factor Represents 3 Points: Age 75 years or older Thrombosis Risk Factor Assessment Total Risk Factor Score: 4 Thrombosis Risk Factor Assessment Level: Moderate Risk Assessment and Plan Plan: #1 hyperglycemia: Improved patient does not have any diabetic ketoacidosis or do not believe patient has hypertension hyperosmolar hyperglycemic state either. Secondary to excess sugar she took yesterday in the form of Gatorade. Patient will be discharged today on her home regimen. #2 possible viral gastroenteritis with improved symptoms. #3 headaches for which we'll use symptomatic treatment with Fioricet No. 4 hypothyroidism #5 hyponatremia which is pseudohyponatremia secondary to hyperglycemia which improved at this point of time. #6 depression for which patient will continue fluoxetine. #7 type 2 diabetes mellitus. #8 self-limiting hemorrhoidal bleed.
--- NOTE | 2017-01-12 13:42 | P.DS ---
Providers Date of admission: 01/12/17 03:17 Attending physician: Tressa Munroe Primary care physician: Diogenes Riddle [facility] Course: Please refer to HPI Patient Condition at Discharge: Good Plan - Discharge Summary New Discharge Prescriptions: [place]/APAP/Caf/Cod [id number] [Fioricet w/Cod [id number]] 1 - 2 cap PO Q4H #30 capsule No Action rOPINIRole HCL 0.5 mg PO BID Vit B Comp No.3/Folic/C/Biotin [Jillian-[facility]on Rx Tablet] 1 tab PO W/SUPPER Ramipril [Altace] 2.5 mg PO DAILY LORazepam [Ativan] 0.5 mg PO DAILY PRN PRN Reason: ANXIETY/SLEEP Levothyroxine Sodium [Synthroid] 200 mcg PO DAILY Thiamine HCl [Vitamin B-1] 50 mg PO DAILY FLUoxetine HCL [PROzac ORAL SOLN] 20 mg PO DAILY #30 ml traMADol HCL [Ultram] 50 mg PO Q6HR PRN PRN Reason: Pain INSULIN LISPRO (humaLOG) [HumaLOG] See Protocol SQ AC-TID Levothyroxine Sodium [Synthroid] 50 mcg PO DAILY Insulin Glargine,Hum.rec.anlog [Isidro Salcedo] 48 units SQ HS busPIRone HCL 15 mg PO BID Allopurinol [Zyloprim] 300 mg PO DAILY Discharge Medication List Ramipril [Altace] 2.5 mg PO DAILY 01/19/16 [History] Vit B Comp No.3/Folic/C/Biotin [Jillian-Davon Rx Tablet] 1 tab PO W/SUPPER 01/19/16 [History] rOPINIRole HCL 0.5 mg PO BID 01/19/16 [History] LORazepam [Ativan] 0.5 mg PO DAILY PRN 05/01/16 [History] Levothyroxine Sodium [Synthroid] 200 mcg PO DAILY 10/03/16 [History] Thiamine HCl [Vitamin B-1] 50 mg PO DAILY 12/06/16 [History] FLUoxetine HCL [PROzac ORAL SOLN] 20 mg PO DAILY #30 ml 12/07/16 [Rx] Allopurinol [Zyloprim] 300 mg PO DAILY 01/12/17 [History] [place]/APAP/Caf/Cod [id number] [Fioricet w/Cod [id number]] 1 - 2 cap PO Q4H #30 capsule 01/12/17 [Rx] INSULIN LISPRO (humaLOG) [HumaLOG] See Protocol SQ AC-TID 01/12/17 [History] Insulin Glargine,Hum.rec.anlog [Isidro Salcedo] 48 units SQ HS 01/12/17 [ History] Levothyroxine Sodium [Synthroid] 50 mcg PO DAILY 01/12/17 [History] busPIRone HCL 15 mg PO BID 01/12/17 [History] traMADol HCL [Ultram] 50 mg PO Q6HR PRN 01/12/17 [History] Follow up Appointment(s)/Referral(s): Diogenes Riddle DO [Primary Care Provider] - 3 Days Discharge Disposition: HOME SELF-CARE
[2017-01-12] MEDS ORDERED: BUTA/APAP/CAF/COD 50-325-40-30 CAP PO STA (14:32)
[2017-01-12] MEDS ORDERED: VIT A,C & E-LUTEIN-MINERALS 1 EACH TAB PO SCH (17:30)
[2017-01-12] MEDS ORDERED: busPIRone HCl 10 MG TAB PO SCH (17:30)
[2017-01-13 09:55] LABS: Hemoglobin A1C 7.6 % (4.2-6.1)
== END 2017-01-12 17:16 | disposition home or self-care (01) | DRG 638 ==
LOC: EC 22:37 → 6SEL 01-12 03:17
PROVIDERS: ADMIT Hospitalist; ATTEND Hospitalist
DX: E11.65 Type 2 diabetes mellitus with hyperglycemia (principal); E87.1 Hypo-osmolality and hyponatremia; E87.2 Acidosis; E11.40 Type 2 diabetes mellitus with diabetic neuropathy, unspecified; I50.9 Heart failure, unspecified; A08.4 Viral intestinal infection, unspecified; K64.9 Unspecified hemorrhoids; M10.9 Gout, unspecified; E03.9 Hypothyroidism, unspecified; M19.91 Primary osteoarthritis, unspecified site; F32.9 Major depressive disorder, single episode, unspecified; Z79.4 Long term (current) use of insulin; Z79.899 Other long term (current) drug therapy; Z90.49 Acquired absence of other specified parts of digestive tract; Z96.652 Presence of left artificial knee joint; Z87.442 Personal history of urinary calculi; Z88.2 Allergy status to sulfonamides; Z88.8 Allergy status to other drugs, medicaments and biological substances; Z83.3 Family history of diabetes mellitus
CPT/HCPCS: 36415; 71020; 74177; 80051; 80053; 81001; 82009; 82150; 82565; 82803; 82947; 83036; 83690; 84100; 84520; 85025; 86140; 96361; 96374; 99285

== ENCOUNTER 2017-02-15 18:47 | Observation (INO) | payer MEDICARE, BC ==
[2017-02-15] MEDS ORDERED: ONDANSETRON 4 MG/2 ML VIAL IVP STA (19:15)
--- NOTE | 2017-02-15 19:15 | ED ---
General Adult HPI - General Chief complaint: Abdominal Pain Stated complaint: Nausea, Back Pain, SOB Source: patient, family, RN notes reviewed, old records reviewed Mode of arrival: wheelchair Limitations: no limitations - History of Present Illness Initial comments: Chief complaint history of present illness a 66-year-old female here with a complaint of cough leading to flank discomfort on the left side. [place] short of breath. Nausea no vomiting. Patient recently evaluated by her urologist stated he did not think she had any kidney stones. Patient checked her blood sugar today was elevated. She gave herself 40 units of Novolin repeat blood sugar was 98. Family reports she became hypoglycemic 2 days ago. - Related Data Home Medications Medication Instructions Recorded Confirmed Ramipril [Altace] 2.5 mg PO DAILY 01/19/16 02/15/17 Vit B Comp No.3/Folic/C/Biotin 1 tab PO W/SUPPER 01/19/16 02/15/17 [[facility] Tablet] rOPINIRole HCL 0.5 mg PO BID 01/19/16 02/15/17 LORazepam [Ativan] 0.5 mg PO DAILY PRN 05/01/16 02/15/17 Levothyroxine Sodium [Synthroid] 200 mcg PO DAILY 10/03/16 02/15/17 Allopurinol [Zyloprim] 300 mg PO DAILY 01/12/17 02/15/17 INSULIN LISPRO (humaLOG) [HumaLOG] See Protocol SQ AC-TID 01/12/17 02/15/17 Insulin Glargine,Hum.rec.anlog 48 units SQ HS 01/12/17 02/15/17 [Isidro Salcedo] Levothyroxine Sodium [Synthroid] 50 mcg PO DAILY 01/12/17 02/15/17 busPIRone HCL 15 mg PO BID 01/12/17 02/15/17 traMADol HCL [Ultram] 50 mg PO TID PRN 01/12/17 02/15/17 FLUoxetine HCL [PROzac] 20 mg PO DAILY 02/15/17 02/15/17 Thiamine [Vitamin B-1] 100 mg PO DAILY 02/15/17 02/15/17 Allergies Allergy/AdvReac Type Severity Reaction Status Date / Time formaldehyde Allergy Itching Verified 02/15/17 19:26 nickel Allergy Itching Verified 02/15/17 19:26 quaternium Allergy Itching Verified 02/15/17 19:26 Sulfa (Sulfonamide Allergy Itching Verified 02/15/17 19:26 Antibiotics) Review of Systems ROS Statement: Those systems with pertinent positive or pertinent negative responses have been documented in the HPI. Review of systems no headache or visual acuity changes she has left sided chest pain when she coughs. Short of breath earlier feeling better now. No palpitations. No abdominal pain. No nausea at this time she was nauseated before no change in bowel habits or appetite. All systems are reviewed. Past medical problems CHF, insulin-dependent diabetes mellitus mellitus, osteoarthritis, hypothyroidism. The patient's surgeries include cholecystectomy , hernia repair total left knee, kidney stones 4 times. Also history of depression. Yvonne history no cancers. ALLERGIES to formaldehyde, nickel, or dysuria and sulfa. Patient nonsmoker nondrinker. ROS Other: All systems not noted in ROS Statement are negative. Past Medical History Past Medical History: Heart Failure, Diabetes Mellitus, Osteoarthritis (OA), Thyroid Disorder Additional Past Medical History / Comment(s): hypothyroid, pt reported gout, neuropathy History of Any Multi-Drug Resistant Organisms: None Reported Past Surgical History: Cholecystectomy, Hernia Repair, Joint Replacement Additional Past Surgical History / Comment(s): kidney stones, left knee replacement Past Anesthesia/Blood Transfusion Reactions: No Reported Reaction Past Psychological History: Depression Smoking Status: Never smoker Past Alcohol Use History: None Reported Past Drug Use History: None Reported - Past Family History Father History Unknown: Yes Family Medical History: Diabetes Mellitus Additional Family Medical History / Comment(s): etoh Mother Family Medical History: Liver Disease Additional Family Medical History / Comment(s): etoh Brother(s) Additional Family Medical History / Comment(s): depression, etoh General Exam - General Exam Comments Initial Comments: General: The patient is awake and alert, in no distress, and does not appear acutely ill. Her because she had discomfort with coughing to her left flank area. Short of breath at home. Feeling better now. Vital signs temp 97.2 pulse 78 respiratory rate 20 pulse ox 97 on room air blood pressure 104/65 Eye: Pupils are equal, round and reactive to light, extra-ocular movements are intact ; there is normal conjunctiva bilaterally. No signs of icterus. Ears, nose, mouth and throat: There are moist mucous membranes and no oral lesions. Patient has upper dentures. Neck: The neck is supple, there is no tenderness, no carotid bruit, thyroid not enlarged. Cardiovascular: There is a regular rate and rhythm. No murmur, rub or gallop is appreciated. Respiratory: Crepitant rales left base Gastrointestinal: Soft, non-distended, non-tender abdomen without masses or organomegaly noted. There is no rebound or guarding present. No CVA tenderness. Bowel sounds are unremarkable. Back: There is no tenderness to palpation in the midline. There is no obvious deformity. No rashes noted. Early shingles discussed. Musculoskeletal: Normal ROM, no tenderness, minimal edema lower legs There is no calf tenderness or swelling. Sensation intact. Pulses equal bilaterally 2+. Neurological: CN II-XII intact, There are no obvious motor or sensory deficits. Coordination appears grossly intact. Speech is normal. No numbness no tingling no deficits Skin: Skin is warm and dry and no rashes or lesions are noted. Psychiatric: Past history depression no complaints at this time. Limitations: no limitations Course Vital Signs 02/15/17 02/15/17 02/15/17 18:49 20:29 21:31 Temperature 97.2 F L 97 F L Pulse Rate 78 77 71 Respiratory 20 18 18 Rate Blood Pressure 104/65 106/59 91/55 O2 Sat by Pulse 97 97 95 Oximetry 02/15/17 02/15/17 21:36 22:25 Temperature 97.6 F Pulse Rate 77 Respiratory 18 Rate Blood Pressure 103/62 O2 Sat by Pulse 99 Oximetry Medical Decision Making - Medical Decision Making Medical decision making; patient's white count is 13 hemoglobin 14.9 hematocrit of 43 with a potassium 3.7. BUN 25 creatinine 1.0 with the infarct 55. BMP 615 , troponin less than 0.012. Glucose initially reported by laboratory to be 49. Patient received 1 amp of D50 plus juice. At the current blood sugars were all above 100. A she states that her blood sugars were very high at home she gave herself 40 units of insulin prior to coming emergency room. Patient's feeling better at this time after IV glucose and a sweet drink. Chest x-ray is done and reviewed by radiologist his findings are the heart size is normal. The pulmonary vasculature is normal. The lungs are clear. Final impression by Dr. Salas is no acute pulmonary process. CT the abdomen was done because of elevated lactic acid and persistence of left flank area pain. Radiologist's interpretation is liver spleen pancreas adrenal glands all normal. Gallbladder surgically absent. Kidneys no masses are evident. No hydronephrosis is present. No cysts are present. No renal stones evident. Aorta normal. Free vena cava normal. CT pelvis loops of bowel within the abdomen and pelvis are normal. Diverticula changes are within sigmoid colon. No acute diverticulitis is evident. The appendix is normal as visualized. Urinary bladder decompressed with limited evaluation. Genital urinary structures uterus is normal. Adnexal regions are clear. Osseous structures. No suspicious lytic or sclerotic lesions. Calcified left inguinal adenopathy is present. Impression #1 diverticulosis without acute diverticulitis. #2 no renal or ureteral stones. As read by Dr. Salas Patient I discussed her eating habits and she states she eats or drinks regular soda pop ago she can't stop including real fruit juices. Both of which can spike your blood sugar. Patient states he understands but has difficulty weaning herself off the high sugar drinks. After a liter fluid the patient's blood pressure was 106/60. Patient will be admitted for observation for hypoglycemic reaction secondary to insulin she administered to herself. Patient is taking an GLORIA inhibitor, Altase, this may be part of the reason for coughing. Chest x-ray was otherwise negative per radiology. But on physical examination she did have some crepitant rales at the left base. Case discussed with Dr. Munroe on-call for Dr. Riddle. Patient will be admitted to Dr. Riddle. Thickening consideration the patient's past history kidney issues with radiologist's suggestion of diverticulosis and the patient's rales left lower base. The patient be started on Levaquin while in hospital. - Lab Data Result diagrams: 02/15/17 19:05 02/15/17 19:05 Lab Results 02/15/17 02/15/17 02/15/17 Range/Units 19:05 19:05 19:05 WBC 13.0 H (3.8-10.6) k/uL RBC 4.52 (3.80-5.40) m/uL Hgb 14.9 D (11.4-16.0) gm/dL Hct 43.0 (34.0-46.0) % MCV 95.1 D (80.0-100.0) fL MCH 32.9 (25.0-35.0) pg MCHC 34.7 (31.0-37.0) g/dL RDW 14.0 (11.5-15.5) % Plt Count 298 (150-450) k/uL Neutrophils % 62 % Lymphocytes % 22 % Monocytes % 9 % Eosinophils % 3 % Basophils % 1 % Neutrophils # 8.0 H (1.3-7.7) k/uL Lymphocytes # 2.9 (1.0-4.8) k/uL Monocytes # 1.2 H (0-1.0) k/uL Eosinophils # 0.3 (0-0.7) k/uL Basophils # 0.1 (0-0.2) k/uL Sodium 139 (137-145) mmol/L Potassium 3.7 (3.5-5.1) mmol/L Chloride 107 (98-107) mmol/L Carbon Dioxide 18 L (22-30) mmol/L Anion Gap 14 mmol/L BUN 25 H (7-17) mg/dL Creatinine 1.00 (0.52-1.04) mg/dL Est GFR (MDRD) Af Amer >60 (>60 ml/min/1.73 sqM) Est GFR (MDRD) Non-Af 55 (>60 ml/min/1.73 sqM) Glucose 49 L* (74-99) mg/dL POC Glucose (mg/dL) (75-99) mg/dL POC Glu Speech Therapist Early Intervention ID Plasma Lactic Acid Guicho (0.7-2.0) mmol/L Calcium 10.7 H (8.4-10.2) mg/dL Total Bilirubin 0.8 (0.2-1.3) mg/dL AST 33 (14-36) U/L ALT 46 (9-52) U/L Alkaline Phosphatase 113 (38-126) U/L Troponin I (0.000-0.034) ng/mL NT-Pro-B Natriuret Pep 615 pg/mL Total Protein 7.6 (6.3-8.2) g/dL Albumin 4.5 (3.5-5.0) g/dL Amylase <30 L (30-110) U/L Lipase 33 (23-300) U/L Urine Color Urine Appearance (Clear) Urine pH (5.0-8.0) Ur Specific [place] (1.001-1.035) Urine Protein (Negative) Urine Glucose (UA) (Negative) Urine Ketones (Negative) Urine Blood (Negative) Urine Nitrite (Negative) Urine Bilirubin (Negative) Urine Urobilinogen (<2.0) mg/dL Ur Leukocyte Esterase (Negative) Urine WBC (0-5) /hpf Ur Squamous Epith Cells (0-4) /hpf Hyaline Casts (0-2) /lpf Urine Mucus (None) /hpf 02/15/17 02/15/17 02/15/17 Range/Units 19:05 19:05 19:46 WBC (3.8-10.6) k/uL RBC (3.80-5.40) m/uL Hgb (11.4-16.0) gm/dL Hct (34.0-46.0) % MCV (80.0-100.0) fL MCH (25.0-35.0) pg MCHC (31.0-37.0) g/dL RDW (11.5-15.5) % Plt Count (150-450) k/uL Neutrophils % % Lymphocytes % % Monocytes % % Eosinophils % % Basophils % % Neutrophils # (1.3-7.7) k/uL Lymphocytes # (1.0-4.8) k/uL Monocytes # (0-1.0) k/uL Eosinophils # (0-0.7) k/uL Basophils # (0-0.2) k/uL Sodium (137-145) mmol/L Potassium (3.5-5.1) mmol/L Chloride (98-107) mmol/L Carbon Dioxide (22-30) mmol/L Anion Gap mmol/L BUN (7-17) mg/dL Creatinine (0.52-1.04) mg/dL Est GFR (MDRD) Af Amer (>60 ml/min/1.73 sqM) Est GFR (MDRD) Non-Af (>60 ml/min/1.73 sqM) Glucose (74-99) mg/dL POC Glucose (mg/dL) 43 L (75-99) mg/dL POC Glu Speech Therapist Early Intervention ID Watt, Shy Plasma Lactic Acid Guicho 3.0 H* (0.7-2.0) mmol/L Calcium (8.4-10.2) mg/dL Total Bilirubin (0.2-1.3) mg/dL AST (14-36) U/L ALT (9-52) U/L Alkaline Phosphatase (38-126) U/L Troponin I <0.012 (0.000-0.034) ng/mL NT-Pro-B Natriuret Pep pg/mL Total Protein (6.3-8.2) g/dL Albumin (3.5-5.0) g/dL Amylase (30-110) U/L Lipase (23-300) U/L Urine Color Urine Appearance (Clear) Urine pH (5.0-8.0) Ur Specific [place] (1.001-1.035) Urine Protein (Negative) Urine Glucose (UA) (Negative) Urine Ketones (Negative) Urine Blood (Negative) Urine Nitrite (Negative) Urine Bilirubin (Negative) Urine Urobilinogen (<2.0) mg/dL Ur Leukocyte Esterase (Negative) Urine WBC (0-5) /hpf Ur Squamous Epith Cells (0-4) /hpf Hyaline Casts (0-2) /lpf Urine Mucus (None) /hpf 02/15/17 02/15/17 02/15/17 Range/Units 20:07 20:13 20:43 WBC (3.8-10.6) k/uL RBC (3.80-5.40) m/uL Hgb (11.4-16.0) gm/dL Hct (34.0-46.0) % MCV (80.0-100.0) fL MCH (25.0-35.0) pg MCHC (31.0-37.0) g/dL RDW (11.5-15.5) % Plt Count (150-450) k/uL Neutrophils % % Lymphocytes % % Monocytes % % Eosinophils % % Basophils % % Neutrophils # (1.3-7.7) k/uL Lymphocytes # (1.0-4.8) k/uL Monocytes # (0-1.0) k/uL Eosinophils # (0-0.7) k/uL Basophils # (0-0.2) k/uL Sodium (137-145) mmol/L Potassium (3.5-5.1) mmol/L Chloride (98-107) mmol/L Carbon Dioxide (22-30) mmol/L Anion Gap mmol/L BUN (7-17) mg/dL Creatinine (0.52-1.04) mg/dL Est GFR (MDRD) Af Amer (>60 ml/min/1.73 sqM) Est GFR (MDRD) Non-Af (>60 ml/min/1.73 sqM) Glucose (74-99) mg/dL POC Glucose (mg/dL) 68 L 116 H (75-99) mg/dL POC Glu Speech Therapist Early Intervention Milena Cortez Dixon [place] Plasma Lactic Acid Guicho (0.7-2.0) mmol/L Calcium (8.4-10.2) mg/dL Total Bilirubin (0.2-1.3) mg/dL AST (14-36) U/L ALT (9-52) U/L Alkaline Phosphatase (38-126) U/L Troponin I (0.000-0.034) ng/mL NT-Pro-B Natriuret Pep pg/mL Total Protein (6.3-8.2) g/dL Albumin (3.5-5.0) g/dL Amylase (30-110) U/L Lipase (23-300) U/L Urine Color Dark Brown Urine Appearance Cloudy H (Clear) Urine pH 5.5 (5.0-8.0) Ur Specific [place] 1.022 (1.001-1.035) Urine Protein 1+ H (Negative) Urine Glucose (UA) 4+ H (Negative) Urine Ketones Trace H (Negative) Urine Blood Negative (Negative) Urine Nitrite Negative (Negative) Urine Bilirubin 1+ H (Negative) Urine Urobilinogen 3.0 (<2.0) mg/dL Ur Leukocyte Esterase Trace H (Negative) Urine WBC 4 (0-5) /hpf Ur Squamous Epith Cells 16 H (0-4) /hpf Hyaline Casts 157 H (0-2) /lpf Urine Mucus Moderate H (None) /hpf 02/15/17 Range/Units 21:29 WBC (3.8-10.6) k/uL RBC (3.80-5.40) m/uL Hgb (11.4-16.0) gm/dL Hct (34.0-46.0) % MCV (80.0-100.0) fL MCH (25.0-35.0) pg MCHC (31.0-37.0) g/dL RDW (11.5-15.5) % Plt Count (150-450) k/uL Neutrophils % % Lymphocytes % % Monocytes % % Eosinophils % % Basophils % % Neutrophils # (1.3-7.7) k/uL Lymphocytes # (1.0-4.8) k/uL Monocytes # (0-1.0) k/uL Eosinophils # (0-0.7) k/uL Basophils # (0-0.2) k/uL Sodium (137-145) mmol/L Potassium (3.5-5.1) mmol/L Chloride (98-107) mmol/L Carbon Dioxide (22-30) mmol/L Anion Gap mmol/L BUN (7-17) mg/dL Creatinine (0.52-1.04) mg/dL Est GFR (MDRD) Af Amer (>60 ml/min/1.73 sqM) Est GFR (MDRD) Non-Af (>60 ml/min/1.73 sqM) Glucose (74-99) mg/dL POC Glucose (mg/dL) 139 H (75-99) mg/dL POC Glu Speech Therapist Early Intervention ID Shy Stringer Plasma Lactic Acid Guicho (0.7-2.0) mmol/L Calcium (8.4-10.2) mg/dL Total Bilirubin (0.2-1.3) mg/dL AST (14-36) U/L ALT (9-52) U/L Alkaline Phosphatase (38-126) U/L Troponin I (0.000-0.034) ng/mL NT-Pro-B Natriuret Pep pg/mL Total Protein (6.3-8.2) g/dL Albumin (3.5-5.0) g/dL Amylase (30-110) U/L Lipase (23-300) U/L Urine Color Urine Appearance (Clear) Urine pH (5.0-8.0) Ur Specific [place] (1.001-1.035) Urine Protein (Negative) Urine Glucose (UA) (Negative) Urine Ketones (Negative) Urine Blood (Negative) Urine Nitrite (Negative) Urine Bilirubin (Negative) Urine Urobilinogen (<2.0) mg/dL Ur Leukocyte Esterase (Negative) Urine WBC (0-5) /hpf Ur Squamous Epith Cells (0-4) /hpf Hyaline Casts (0-2) /lpf Urine Mucus (None) /hpf Disposition Clinical Impression: Hypoglycemic reaction to insulin, Pneumonia Disposition: ADMITTED IP TO THIS HOSP Condition: Fair Referrals: Diogenes Riddle DO [Primary Care Provider] - 1-2 days
[2017-02-15 19:32] LABS: CH 32.6; Luc # (Auto) 0.38; Luc % (Auto) 3; Neutrophils % (A) 62 %
[2017-02-15 19:48] LABS: Glucose,Whole Blood 43 mg/dL (75-99)
[2017-02-15 19:49] LABS: ALT 46 U/L (9-52); AST 33 U/L (14-36); Alkaline Phosphatase 113 U/L (38-126); Amylase <30 U/L (30-110); Anion Gap 14 mmol/L; Blood Urea Nitrogen 25 mg/dL (7-17); Calcium 10.7 mg/dL (8.4-10.2); Carbon Dioxide 18 mmol/L (22-30); Chloride 107 mmol/L (98-107); Non-African American GFR(MDRD) 55 (>60 ml/min/1.73 sqM); Potassium 3.7 mmol/L (3.5-5.1); Sodium 139 mmol/L (137-145); Total Bilirubin 0.8 mg/dL (0.2-1.3); Total Protein 7.6 g/dL (6.3-8.2)
[2017-02-15] MEDS ORDERED: DEXTROSE 50%-WATER 50 ML SYRINGE IVP STA ×2 (19:50→20:26)
--- NOTE | 2017-02-15 19:56 | XR ---
EXAMINATION TYPE: XR chest 2V DATE OF EXAM: 02/15/2017 COMPARISON: 01/12/2017 INDICATION: Left flank pain and nausea TECHNIQUE: Frontal and lateral views of the chest are obtained. FINDINGS: The heart size is normal. The pulmonary vasculature is normal. The lungs are clear. IMPRESSION: 1. No acute pulmonary process.
[2017-02-15 19:57] LABS: Basophils # (A) 0.1 k/uL (0-0.2); Basophils % (A) 1 %; CHCM 34.5; Eosinophils # (A) 0.3 k/uL (0-0.7); Eosinophils % (A) 3 %; Glucose 49 mg/dL (74-99); HDW 2.84; Lymphocytes # (A) 2.9 k/uL (1.0-4.8); Lymphocytes % (A) 22 %; MCH 32.9 pg (25.0-35.0); MCHC 34.7 g/dL (31.0-37.0); Monocytes # (A) 1.2 k/uL (0-1.0); Monocytes % (A) 9 %; RBC 4.52 m/uL (3.80-5.40); WBC (Perox) 13.17
[2017-02-15 20:16] LABS: Glucose,Whole Blood 68 mg/dL (75-99)
[2017-02-15 20:21] LABS: HGB 14.9 gm/dL (11.4-16.0); MCV 95.1 fL (80.0-100.0)
[2017-02-15 20:27] LABS: Appearance,Urine Cloudy (Clear); Bilirubin,Urine 1+ (Negative); Glucose,Urine (UA) 4+ (Negative); Ketones,Urine Trace (Negative); Leukocyte Esterase,Urine Trace (Negative); Mucus,Urine Moderate /hpf; Nitrite,Urine Negative (Negative); PH, Urine 5.5 (5.0-8.0); Particle Count 9867; Protein,Urine 1+ (Negative); Specific Gravity,Urine 1.022 (1.001-1.035); Squamous Epithelial Cell,Urine 16 /hpf (0-4); UA Billing (MACRO vs. MICRO) MICRO; WBC,Urine 4 /hpf (0-5)
[2017-02-15 20:57] LABS: Glucose,Whole Blood 116 mg/dL (75-99)
[2017-02-15 21:32] LABS: Glucose,Whole Blood 139 mg/dL (75-99)
[2017-02-15] MEDS ORDERED: SODIUM CHLORIDE 0.9% 1,000 ML IV ONE (21:36)
--- NOTE | 2017-02-15 21:37 | CT ---
EXAMINATION TYPE: CT abdomen pelvis wo con DATE OF EXAM: 02/15/2017 COMPARISON: 01/12/2017 INDICATION: left flank pain DLP: 1817.80 mGycm, Automated exposure control for dose reduction was used. CONTRAST: 0 mL of Omnipaque 300. Study performed without Oral Contrast TECHNIQUE: Axial images were obtained from above the diaphragm to the pubic rami in the axial plane a t 5 mm thick sections. Reconstructed images are reviewed on the computer in the coronal plane. FINDINGS: Limited CT sections are obtained the lung bases. There is a 0.3 cm nodule within the right middle lo be. Series 4 image 7 in the periphery. Peribronchial thickening and mild increased lung markings in t he posterior medial left lung base.. CT ABDOMEN: Liver: Normal Spleen: Normal Pancreas: Atrophic Adrenal glands: The adrenal glands are normal. Gallbladder: Surgically absent Kidneys: No masses are evident. No hydronephrosis is present. No cysts are present. No renal stone s are evident. Aorta: Normal Inferior vena cava: Normal. CT PELVIS: Loops of bowel within the abdomen and pelvis are normal. Diverticular changes are within the sigm oid colon. No acute diverticulitis is evident. Appendix: Normal as visualized. Urinary bladder: Compressed with limited evaluation. Genitourinary structures: Uterus is normal. Adnexal regions are clear. Osseous structures: No suspicious lytic or sclerotic lesions. Calcified left inguinal adenopathy is present. IMPRESSIONS: 1. Diverticulosis without acute diverticulitis. 2. No renal or ureteral stones.
[2017-02-15] MEDS ORDERED: LEVOFLOXACIN 500MG-D5W PMX 500 MG in DEXTROSE/WATER 1 100ML.BAG IVPB STA (23:09)
[2017-02-15] MEDS ORDERED: NALOXONE 0.4 MG/ML 1 ML VIAL IV PRN (23:10)
[2017-02-15] MEDS: SODIUM CHLORIDE 0.9% 1,000 ML IV SCH (23:45)
[2017-02-16 00:39] LABS: Glucose,Whole Blood 219 mg/dL (75-99)
[2017-02-16 00:43] VITALS: BMI 37.6
[2017-02-16] MEDS: ACETAMINOPHEN TAB 325 MG TAB PO PRN ×2 (01:04→08:43)
[2017-02-16] MEDS: LORazepam 0.5 MG TAB PO PRN (02:30)
[2017-02-16] MEDS: LEVOTHYROXINE 100 MCG TAB PO SCH (05:25)
[2017-02-16] MEDS: LEVOTHYROXINE 50 MCG TAB PO SCH (05:25)
[2017-02-16 06:10] LABS: Glucose,Whole Blood 347 mg/dL (75-99)
[2017-02-16 08:04] LABS: Basophils # (A) 0.1 k/uL (0-0.2); Basophils % (A) 1 %; CH 32.7; Eosinophils # (A) 0.2 k/uL (0-0.7); Eosinophils % (A) 3 %; HCT 37.3 % (34.0-46.0); HDW 2.68; Luc # (Auto) 0.13; Luc % (Auto) 2; Lymphocytes # (A) 1.4 k/uL (1.0-4.8); Lymphocytes % (A) 21 %; MCH 31.6 pg (25.0-35.0); MCHC 31.7 g/dL (31.0-37.0); MCV 99.8 fL (80.0-100.0); Macrocytosis Slight; Mean Platelet Volume 8.8; Monocytes # (A) 0.5 k/uL (0-1.0); Monocytes % (A) 7 %; Neutrophils # (A) 4.7 k/uL (1.3-7.7); Neutrophils % (A) 67 %; RBC 3.74 m/uL (3.80-5.40); RDW 14.5 % (11.5-15.5)
[2017-02-16 08:12] LABS: HGB 11.8 gm/dL (11.4-16.0)
[2017-02-16 08:21] LABS: Anion Gap 8 mmol/L; Blood Urea Nitrogen 23 mg/dL (7-17); Calcium 8.8 mg/dL (8.4-10.2); Carbon Dioxide 22 mmol/L (22-30); Chloride 104 mmol/L (98-107); Glucose 369 mg/dL (74-99); Non-African American GFR(MDRD) 58 (>60 ml/min/1.73 sqM); Potassium 4.9 mmol/L (3.5-5.1); Sodium 134 mmol/L (137-145)
[2017-02-16] MEDS: INSULIN LISPRO (humaLOG) 300 UNIT/3 ML VIAL SQ SCH ×4 (08:28→21:10)
[2017-02-16] MEDS: busPIRone HCl 10 MG TAB PO SCH ×2 (08:28→21:07)
[2017-02-16] MEDS: ALLOPURINOL 300 MG TAB PO SCH (08:30)
[2017-02-16] MEDS: FLUoxetine HCL 20 MG CAP PO SCH (08:30)
[2017-02-16] MEDS ORDERED: INSULIN LISPRO (humaLOG) 300 UNIT/3 ML VIAL SQ ONE (08:51)
[2017-02-16] MEDS: traMADol 50 MG TAB PO PRN ×2 (09:51→18:16)
[2017-02-16 12:20] LABS: Glucose,Whole Blood 217 mg/dL (75-99)
[2017-02-16] MEDS: SODIUM CHLORIDE 0.9% 1,000 ML IV SCH (12:42)
[2017-02-16 13:53] LABS: Hemoglobin A1C 8.3 % (4.2-6.1)
[2017-02-16] MEDS ORDERED: INSULIN GLARGINE 100 UNIT/ML 10 ML VIAL SQ STA (14:55)
[2017-02-16] MEDS ORDERED: FOLIC ACID-VIT B COMPLEX-VIT C 1 CAP PO SCH (17:30)
[2017-02-16 17:35] LABS: Glucose,Whole Blood 302 mg/dL (75-99)
--- NOTE | 2017-02-16 19:15 | HP ---
DATE OF ADMISSION: 02/15/17 I am covering for Dr. Riddle. CHIEF COMPLAINT: Hypoglycemia. HISTORY OF PRESENT ILLNESS: This 66-year-old woman with past medical history of Diabetes mellitus type 2, history of DJD, history of CHF, hypothyroidism, being followed by Dr. Riddle in the outpatient setting, had blood sugar of more than 500 yesterday morning. The patient took 40 units of insulin and subsequently the patient did not eat much. Subsequently, the patient had hypoglycemia. Sugars were showing 43 and the patient came to [facility] and was admitted to the hospital further evaluation and treatment. Of note, the patient was also complaining of shortness of breath and chest pain also. The patient was also had abdominal and pelvis CT scan at this time. The CT scan showed diverticulosis without any diverticulitis. The patient had apparently neurology workup in the outpatient setting also which did not show acute abnormality. Abdominal and pelvis CT was also repeated during last admission also which showed no acute findings but 5.5 cm pulmonary nodule. Sugars improving after admission. There is no history of fever, rigors or chills. Past medical history of CHF, history of diabetes, hypertension, DJD, hypothyroidism, neuropathy. Mediations prior to admission include: Home medications are: 1. Ultram 50 mg po t.i.d. 2. Requip 0.5 mg po b.i.d. 3. BuSpar 15 mg po b.i.d. 4. Multivitamins one po daily. 5. Vitamin B1 100 mg daily. 6. Altace 2.5 mg daily. 7. Synthroid 250 mcg po daily. 8. Ativan 0.5 mg daily, prn. 10. Humalog t.i.d. 11. Prozac 20 mg daily. 12. Xyloprim 300 mg daily. ALLERGIES: FORMALDEHYDE, NICKEL, AND SULFA. FAMILY HISTORY: History of diabetes and ETOH in the family. SOCIAL HISTORY: No history of smoking. No history of alcohol intake. REVIEW OF SYSTEMS: HEENT: No diminished vision and no diminished hearing. Cardiovascular system: No angina or palpitations. Respiratory: No cough. No hemoptysis. GI: No nausea or vomiting. : No dysuria. Nervous system: No numbness, weakness. Allergy/Immunology: No asthma or hayfever. Musculoskeletal: As mentioned earlier. Hematology/oncology: No history of anemia. Endocrine: Diabetes. Constitutional: As mentioned earlier. Dermatology: Negative. Rheumatology: Negative. Psychiatry: As mentioned earlier. PHYSICAL EXAMINATION: The patient is alert, oriented times three. Pulse 77. Blood pressure 103/62. Respiratory rate 18, temperature 97.6. Pulse ox 99% on room air. HEENT: Conjunctivae normal. NECK: No JVD. Cardiovascular : S1, S2. No S3. No S4. Respiratory: Breath sounds diminished at the bases. No rhonchi and no crackles. Abdomen is soft, nontender. Minimal diffuse discomfort on palpation. Some minimal tenderness in the left lower back area also present. No guarding. No rigidity. Bowel sounds present. No ascites. Legs: No edema. No swelling. Nervous system: Higher functions as mentioned earlier. Moves all four limbs. No focal motor deficits. Lymphatics: No lymph nodes palpable in the neck, axilla or groin. Skin: No ulcer, rash or bleeding. LABS: CBC within normal limits. Sodium 134. D. dimer is noted. ASSESSMENT: 1. Diabetes Type 2 uncontrolled with hypoglycemia. 2. Back pain for evaluation, possible degenerative joint disease. 3. History of degenerative joint disease. 4. Hypothyroidism. 5. History of gout. 6. History of neuropathy. RECOMMENDATIONS AND DISCUSSION: In this 66 -year-old woman who presented with multiple complex medical issues, we will monitor the patient closely. Continue current medications. Continue symptomatic treatment. Otherwise, we will resume the at a lower dose. Continue to monitor. Guarded prognosis. Further recommendations to follow. See orders for details. DVT prophylaxis. Check. Dr[facility]
[2017-02-16] MEDS ORDERED: LEVOFLOXACIN 500MG-D5W PMX 500 MG in DEXTROSE/WATER 1 100ML.BAG IVPB SCH (21:00)
[2017-02-16] MEDS ORDERED: INSULIN GLARGINE 100 UNIT/ML 10 ML VIAL SQ SCH (21:00)
[2017-02-16 21:10] LABS: Glucose,Whole Blood 331 mg/dL (75-99)
[2017-02-17] MEDS: LORazepam 0.5 MG TAB PO PRN (00:07)
[2017-02-17] MEDS: SODIUM CHLORIDE 0.9% 1,000 ML IV SCH (00:09)
[2017-02-17 01:16] VITALS: RESP 16; TEMP 97.6
[2017-02-17] MEDS: LEVOTHYROXINE 50 MCG TAB PO SCH (06:34)
[2017-02-17] MEDS: LEVOTHYROXINE 100 MCG TAB PO SCH (06:34)
[2017-02-17 07:54] LABS: Glucose,Whole Blood 71 mg/dL (75-99)
[2017-02-17] MEDS: INSULIN LISPRO (humaLOG) 300 UNIT/3 ML VIAL SQ SCH (07:59)
[2017-02-17 08:11] VITALS: BP 126/78; PULSE 67
[2017-02-17] MEDS: FLUoxetine HCL 20 MG CAP PO SCH (08:16)
[2017-02-17] MEDS: busPIRone HCl 10 MG TAB PO SCH (08:16)
[2017-02-17] MEDS: ALLOPURINOL 300 MG TAB PO SCH (08:16)
[2017-02-17 09:07] LABS: Basophils % (A) 1 %; CHCM 33.4; Eosinophils # (A) 0.4 k/uL (0-0.7); Eosinophils % (A) 6 %; HCT 39.2 % (34.0-46.0); HDW 2.69; HGB 12.6 gm/dL (11.4-16.0); Luc # (Auto) 0.16; Luc % (Auto) 2; Lymphocytes # (A) 1.6 k/uL (1.0-4.8); Lymphocytes % (A) 25 %; MCH 31.9 pg (25.0-35.0); MCHC 32.1 g/dL (31.0-37.0); MCV 99.5 fL (80.0-100.0); Macrocytosis Slight; Mean Platelet Volume 8.3; Monocytes # (A) 0.5 k/uL (0-1.0); Monocytes % (A) 8 %; Neutrophils # (A) 3.9 k/uL (1.3-7.7); Neutrophils % (A) 59 %; RBC 3.94 m/uL (3.80-5.40); RDW 14.5 % (11.5-15.5); WBC 6.7 k/uL (3.8-10.6); WBC (Perox) 6.76
[2017-02-17] MEDS: traMADol 50 MG TAB PO PRN (09:10)
[2017-02-17 09:28] LABS: Anion Gap 9 mmol/L; Blood Urea Nitrogen 18 mg/dL (7-17); Calcium 9.4 mg/dL (8.4-10.2); Carbon Dioxide 21 mmol/L (22-30); Chloride 109 mmol/L (98-107); Glucose 100 mg/dL (74-99); Non-African American GFR(MDRD) >60 (>60 ml/min/1.73 sqM); Potassium 4.4 mmol/L (3.5-5.1); Sodium 139 mmol/L (137-145)
[2017-02-17 11:43] LABS: Glucose,Whole Blood 283 mg/dL (75-99)
[2017-02-17] MEDS ORDERED: THIAMINE 100 MG TAB PO SCH (12:00)
== END 2017-02-17 12:05 | disposition home or self-care (01) ==
LOC: EC 18:47 → 4MS4W 23:10
PROVIDERS: ADMIT Family Medicine; ATTEND Family Medicine
DX: E11.649 Type 2 diabetes mellitus with hypoglycemia without coma (principal); M19.90 Unspecified osteoarthritis, unspecified site; E03.9 Hypothyroidism, unspecified; M10.9 Gout, unspecified; I11.0 Hypertensive heart disease with heart failure; I50.9 Heart failure, unspecified; F32.9 Major depressive disorder, single episode, unspecified; T38.3X5A Adverse effect of insulin and oral hypoglycemic [antidiabetic] drugs, initial encounter; K57.90 Diverticulosis of intestine, part unspecified, without perforation or abscess without bleeding; R91.1 Solitary pulmonary nodule; E11.40 Type 2 diabetes mellitus with diabetic neuropathy, unspecified; E11.65 Type 2 diabetes mellitus with hyperglycemia; M54.9 Dorsalgia, unspecified; Z79.899 Other long term (current) drug therapy; Z79.4 Long term (current) use of insulin; Z88.2 Allergy status to sulfonamides; Z88.8 Allergy status to other drugs, medicaments and biological substances; Z91.048 Other nonmedicinal substance allergy status; Z87.442 Personal history of urinary calculi; Z83.3 Family history of diabetes mellitus
CPT/HCPCS: 96361 ×3; 96365; 96376; 96375; 99285; 36415; 85379; 83880; 80053; 80048 ×2; 82150; 83036; 82009; 83605; 83690; 84550; 84484; 85025 ×3; 81001; 87040; 87086; 71020; 74176; G0378 ×3; J2405; J1956 ×2

== ENCOUNTER 2017-03-05 08:12 | Day surgery (SDC) | payer MEDICARE, BC ==
[2017-03-03 12:54] VITALS: BMI 39.9
[~2017-03-05 08:12] MED LIST: LACTATED RINGERS 1,000 ML IV SCH
[2017-03-05] MEDS ORDERED: LIDOCAINE 1% 20 ML VIAL (10MG/ML) FOR IV START INTRADERMA ONE (08:52)
[2017-03-05 09:13] LABS: Glucose,Whole Blood 340 mg/dL (75-99)
[2017-03-05 09:14] VITALS: TEMP 97.9
[2017-03-05] MEDS ORDERED: PROPOFOL 10 MG/ML 20 ML VIAL IV ONE (09:31)
--- NOTE | 2017-03-05 09:32 | P.GSHP ---
History of Present Illness H&P Date: 03/05/17 Chief Complaint: GI bleed This is a 66-year-old female who presents today for colonoscopy. She's had issues with GI bleed. Past Medical History Past Medical History: Heart Failure, Diabetes Mellitus, Hypertension, Osteoarthritis (OA), Thyroid Disorder Additional Past Medical History / Comment(s): hypothyroid, gout, neuropathy, Back Pain, States when she eats she has diarrhea afterwards and has had blood in stool. History of Any Multi-Drug Resistant Organisms: None Reported Past Surgical History: Cholecystectomy, Hernia Repair, Joint Replacement Additional Past Surgical History / Comment(s): kidney stones, left knee replacement Past Anesthesia/Blood Transfusion Reactions: Postoperative Nausea & Vomiting ( PONV) Additional Past Anesthesia/Blood Transfusion Reaction / Comment(s): ponv x1 Past Psychological History: Anxiety, Depression, Panic Disorder Additional Psychological History / Comment(s): . Smoking Status: Never smoker Past Alcohol Use History: None Reported Past Drug Use History: None Reported - Past Family History Father History Unknown: Yes Family Medical History: Diabetes Mellitus Additional Family Medical History / Comment(s): etoh Mother Family Medical History: Liver Disease Additional Family Medical History / Comment(s): etoh Brother(s) Additional Family Medical History / Comment(s): depression, etoh Medications and Allergies Home Medications Medication Instructions Recorded Confirmed Type Ramipril [Altace] 2.5 mg PO DAILY 01/19/16 03/05/17 History Vit B Comp No.3/Folic/C/Biotin 1 tab PO W/SUPPER 01/19/16 03/05/17 History [[facility] Rx Tablet] rOPINIRole HCL 0.5 mg PO BID 01/19/16 03/05/17 History LORazepam [Ativan] 0.5 mg PO DAILY PRN 05/01/16 03/05/17 History Levothyroxine Sodium [Synthroid] 200 mcg PO DAILY 10/03/16 03/05/17 History Allopurinol [Zyloprim] 300 mg PO DAILY 01/12/17 03/05/17 History INSULIN LISPRO (humaLOG) [HumaLOG] 15 units SQ AC-TID 01/12/17 03/05/17 History Insulin Glargine,Hum.rec.anlog 48 units SQ HS 01/12/17 03/05/17 History [Isidro Salcedo] Levothyroxine Sodium [Synthroid] 50 mcg PO DAILY 01/12/17 03/05/17 History busPIRone HCL 15 mg PO BID 01/12/17 03/05/17 History traMADol HCL [Ultram] 50 mg PO TID PRN 01/12/17 03/05/17 History FLUoxetine HCL [PROzac] 20 mg PO DAILY 02/15/17 03/05/17 History Thiamine [Vitamin B-1] 100 mg PO DAILY 02/15/17 03/05/17 History Ibuprofen 800 mg PO DAILY PRN 03/03/17 03/03/17 History Allergies Allergy/AdvReac Type Severity Reaction Status Date / Time formaldehyde Allergy Itching Verified 03/03/17 12:18 nickel Allergy Itching Verified 03/03/17 12:18 quaternium Allergy Itching Verified 03/03/17 12:18 Sulfa (Sulfonamide Allergy Itching Verified 03/03/17 12:18 Antibiotics) Surgical - Exam Vital Signs Temp Pulse Resp BP Pulse Ox 97.9 F 76 16 121/65 97 03/05/17 09:09 03/05/17 09:09 03/05/17 09:09 03/05/17 09:09 03/05/17 09:09 - General well developed, no distress - Eyes PERRL - ENT normal pinna - Neck no masses - Respiratory normal expansion - Cardiovascular Rhythm: regular - Abdomen Abdomen: soft, non tender Results - Labs Abnormal Lab Results - Last 24 Hours (Table) 03/05/17 Range/Units 09:01 POC Glucose (mg/dL) 340 H (75-99) mg/dL Assessment and Plan Plan: GI bleed. We'll perform colonoscopy.
--- NOTE | 2017-03-05 09:50 | P.OP ---
Date of Procedure: 03/05/17 Preoperative Diagnosis: GI bleed Postoperative Diagnosis: Diverticulosis External hemorrhoids Procedure(s) Performed: Colonoscopy Anesthesia: MAC Surgeon: Akash Juels Pathology: none sent Condition: stable Disposition: PACU Description of Procedure: The patient's placed on the endoscopy table in the lateral position. She received IV sedation. Digital rectal exam was performed which revealed a few external hemorrhoids. The flexible colonoscope was then placed patient anus passed throughout the entire colon. The ileocecal valve was visualized. The cecum, ascending and transverse colon appeared normal. In the descending and sigmoid colon there was mild diverticulosis. The scope was then brought back the rectum and this appeared normal. Scope was withdrawn for patient.
[2017-03-05 09:57] VITALS: RESP 18
[2017-03-05 10:08] LABS: Glucose,Whole Blood 338 mg/dL (75-99)
[2017-03-05 10:46] VITALS: BP 129/65; PULSE 71
== END 2017-03-05 10:50 | disposition home or self-care (01) ==
LOC: ORWHC2ENDO 08:12
PROVIDERS: ATTEND Surgery
DX: K57.30 Diverticulosis of large intestine without perforation or abscess without bleeding (principal); K64.4 Residual hemorrhoidal skin tags; E03.9 Hypothyroidism, unspecified; E11.9 Type 2 diabetes mellitus without complications; F32.9 Major depressive disorder, single episode, unspecified; I11.0 Hypertensive heart disease with heart failure; I50.9 Heart failure, unspecified; M10.9 Gout, unspecified; M19.90 Unspecified osteoarthritis, unspecified site; Z79.4 Long term (current) use of insulin; Z79.899 Other long term (current) drug therapy; Z88.2 Allergy status to sulfonamides
CPT/HCPCS: 45378; J2704

== ENCOUNTER 2017-10-21 08:00 | Inpatient (IN) | payer MEDICARE, BC ==
[2017-10-21] MEDS ORDERED: ONDANSETRON 4 MG/2 ML VIAL IVP STA (08:10)
[2017-10-21] MEDS ORDERED: SODIUM CHLORIDE 0.9% 2,000 ML IV STA (08:10)
--- NOTE | 2017-10-21 08:35 | ED ---
General Adult HPI - General Chief complaint: Recheck/Abnormal Lab/Rx Stated complaint: acid ketosis diabetes Time Seen by Provider: 10/21/17 08:10 Source: patient, family, RN notes reviewed Mode of arrival: wheelchair Limitations: no limitations - History of Present Illness Initial comments: This a 67-year-old female presents emergency Department chief complaint of hyperglycemia, nausea vomiting. Patient states her last few days her blood sugar has been reading high. She states that her A1c has been elevated in the past. Patient states that today she started vomiting and she is concerned about DKA. Patient states that she's had no recent cold-like symptoms. No recent infections. Patient denies chest pain, shortness breath, headache, dizziness. She states that she's been urinating a lot and she is very thirsty at this time. Patient states she took 30 units of Humalog at 6:00 this morning. - Related Data Home Medications Medication Instructions Recorded Confirmed Ramipril [Altace] 2.5 mg PO DAILY 01/19/16 10/21/17 Vit B Comp No.3/Folic/C/Biotin 1 tab PO W/SUPPER 01/19/16 10/21/17 [[facility] Rx Tablet] Insulin Glargine,Hum.rec.anlog 48 units SQ HS 01/12/17 10/21/17 [Isidro Salcedo] busPIRone HCL 15 mg PO BID 01/12/17 10/21/17 traMADol HCL [Ultram] 50 mg PO Q8H PRN 01/12/17 10/21/17 FLUoxetine HCL [PROzac] 20 mg PO DAILY 02/15/17 10/21/17 Insulin Lispro [humaLOG Kwikpen] See Protocol SQ AC-TID 10/21/17 10/21/17 Levothyroxine Sodium [Synthroid] 300 mcg PO DAILY 10/21/17 10/21/17 rOPINIRole HCL [Requip] 1 mg PO BID 10/21/17 10/21/17 Allergies Allergy/AdvReac Type Severity Reaction Status Date / Time formaldehyde Allergy Itching Verified 10/21/17 08:05 nickel Allergy Itching Verified 10/21/17 08:05 quaternium Allergy Itching Verified 10/21/17 08:05 Sulfa (Sulfonamide Allergy Itching Verified 10/21/17 08:05 Antibiotics) Review of Systems ROS Statement: Those systems with pertinent positive or pertinent negative responses have been documented in the HPI. ROS Other: All systems not noted in ROS Statement are negative. Past Medical History Past Medical History: Heart Failure, Diabetes Mellitus, Hypertension, Osteoarthritis (OA), Thyroid Disorder Additional Past Medical History / Comment(s): hypothyroid, gout, neuropathy, Back Pain, States when she eats she has diarrhea afterwards and has had blood in stool, neuropathy History of Any Multi-Drug Resistant Organisms: None Reported Past Surgical History: Cholecystectomy, Hernia Repair, Joint Replacement Additional Past Surgical History / Comment(s): kidney stones, left knee replacement Past Anesthesia/Blood Transfusion Reactions: Postoperative Nausea & Vomiting ( PONV) Additional Past Anesthesia/Blood Transfusion Reaction / Comment(s): ponv x1 Past Psychological History: Anxiety, Depression, Panic Disorder Smoking Status: Never smoker Past Alcohol Use History: None Reported Past Drug Use History: None Reported - Past Family History Father History Unknown: Yes Family Medical History: Diabetes Mellitus Additional Family Medical History / Comment(s): etoh Mother Family Medical History: Liver Disease Additional Family Medical History / Comment(s): etoh Brother(s) Additional Family Medical History / Comment(s): depression, etoh General Exam General appearance: alert, in no apparent distress Head exam: Present: atraumatic, normocephalic, normal inspection Neck exam: Present: normal inspection. Absent: tenderness, meningismus, lymphadenopathy Respiratory exam: Present: normal lung sounds bilaterally. Absent: respiratory distress, wheezes, rales, rhonchi, stridor Cardiovascular Exam: Present: normal rhythm, tachycardia, normal heart sounds. Absent: systolic murmur, diastolic murmur, rubs, gallop, clicks GI/Abdominal exam: Present: soft, normal bowel sounds. Absent: distended, tenderness, guarding, rebound, rigid Back exam: Absent: CVA tenderness (R), CVA tenderness (L) Skin exam: Present: warm, dry, intact, normal color. Absent: rash Course Vital Signs 10/21/17 08:02 Temperature 98.6 F Pulse Rate 101 H Respiratory 18 Rate Blood Pressure 130/66 O2 Sat by Pulse 96 Oximetry Medical Decision Making - Medical Decision Making 67-year-old female presented unresponsive for hyperglycemia. Patient's found to be in DKA. Patient was initially given 2 L of IV fluids. Patient was started on 200 and hour normal saline with insulin drip and bolus. Patient will be admitted to telemetry. - Lab Data Result diagrams: 10/21/17 08:34 10/21/17 08:34 Lab Results 10/21/17 10/21/17 10/21/17 Range/Units 08:34 08:34 08:34 WBC 8.4 (3.8-10.6) k/uL RBC 4.13 (3.80-5.40) m/uL Hgb 13.0 (11.4-16.0) gm/dL Hct 42.5 (34.0-46.0) % MCV 102.9 H (80.0-100.0) fL MCH 31.3 (25.0-35.0) pg MCHC 30.4 L (31.0-37.0) g/dL RDW 13.1 (11.5-15.5) % Plt Count 212 (150-450) k/uL Neutrophils % 85 % Lymphocytes % 8 % Monocytes % 6 % Eosinophils % 0 % Basophils % 1 % Neutrophils # 7.1 (1.3-7.7) k/uL Lymphocytes # 0.7 L (1.0-4.8) k/uL Monocytes # 0.5 (0-1.0) k/uL Eosinophils # 0.0 (0-0.7) k/uL Basophils # 0.1 (0-0.2) k/uL Hypochromasia Marked Macrocytosis Slight VBG pH (7.31-7.41) VBG pCO2 (37-51) mmHg VBG HCO3 (24-28) mmol/L Sodium 129 L (137-145) mmol/L Potassium 5.3 H (3.5-5.1) mmol/L Chloride 92 L (98-107) mmol/L Carbon Dioxide 11 L (22-30) mmol/L Anion Gap 26 mmol/L BUN 32 H (7-17) mg/dL Creatinine 1.07 H (0.52-1.04) mg/dL Est GFR (CKD-EPI)AfAm 62 (>60 ml/min/1.73 sqM) Est GFR (CKD-EPI)NonAf 53 (>60 ml/min/1.73 sqM) Glucose 990 H* (74-99) mg/dL Plasma Lactic Acid Guicho 4.8 H* (0.7-2.0) mmol/L Calcium 9.8 (8.4-10.2) mg/dL Total Bilirubin 1.4 H (0.2-1.3) mg/dL AST 34 (14-36) U/L ALT 42 (9-52) U/L Alkaline Phosphatase 118 (38-126) U/L Total Protein 6.2 L (6.3-8.2) g/dL Albumin 3.8 (3.5-5.0) g/dL Amylase <30 L (30-110) U/L Lipase 36 (23-300) U/L Acetone, Qual Positive (Negative) 10/21/17 Range/Units 08:34 WBC (3.8-10.6) k/uL RBC (3.80-5.40) m/uL Hgb (11.4-16.0) gm/dL Hct (34.0-46.0) % MCV (80.0-100.0) fL MCH (25.0-35.0) pg MCHC (31.0-37.0) g/dL RDW (11.5-15.5) % Plt Count (150-450) k/uL Neutrophils % % Lymphocytes % % Monocytes % % Eosinophils % % Basophils % % Neutrophils # (1.3-7.7) k/uL Lymphocytes # (1.0-4.8) k/uL Monocytes # (0-1.0) k/uL Eosinophils # (0-0.7) k/uL Basophils # (0-0.2) k/uL Hypochromasia Macrocytosis VBG pH 7.14 L* (7.31-7.41) VBG pCO2 39 (37-51) mmHg VBG HCO3 13 L (24-28) mmol/L Sodium (137-145) mmol/L Potassium (3.5-5.1) mmol/L Chloride (98-107) mmol/L Carbon Dioxide (22-30) mmol/L Anion Gap mmol/L BUN (7-17) mg/dL Creatinine (0.52-1.04) mg/dL Est GFR (CKD-EPI)AfAm (>60 ml/min/1.73 sqM) Est GFR (CKD-EPI)NonAf (>60 ml/min/1.73 sqM) Glucose (74-99) mg/dL Plasma Lactic Acid Guicho (0.7-2.0) mmol/L Calcium (8.4-10.2) mg/dL Total Bilirubin (0.2-1.3) mg/dL AST (14-36) U/L ALT (9-52) U/L Alkaline Phosphatase (38-126) U/L Total Protein (6.3-8.2) g/dL Albumin (3.5-5.0) g/dL Amylase (30-110) U/L Lipase (23-300) U/L Acetone, Qual (Negative) Disposition Clinical Impression: DKA (diabetic ketoacidoses) Disposition: ADMITTED IP TO THIS [facility] Condition: Fair Referrals: Diogenes Riddle DO [Primary Care Provider] - 1-2 days
[2017-10-21 08:57] LABS: Basophils # (A) 0.1 k/uL (0-0.2); Basophils % (A) 1 %; Eosinophils % (A) 0 %; HCT 42.5 % (34.0-46.0); Hypochromasia Marked; Lymphocytes # (A) 0.7 k/uL (1.0-4.8); Lymphocytes % (A) 8 %; MCH 31.3 pg (25.0-35.0); MCHC 30.4 g/dL (31.0-37.0); MCV 102.9 fL (80.0-100.0); Macrocytosis Slight; Mean Platelet Volume 9.8; Monocytes # (A) 0.5 k/uL (0-1.0); Monocytes % (A) 6 %; Neutrophils # (A) 7.1 k/uL (1.3-7.7); Neutrophils % (A) 85 %; Platelet Count 212 k/uL (150-450); RBC 4.13 m/uL (3.80-5.40); RDW 13.1 % (11.5-15.5); WBC 8.4 k/uL (3.8-10.6)
[2017-10-21 09:04] LABS: VBG PH 7.14 (7.31-7.41)
[2017-10-21 09:09] LABS: ALT 42 U/L (9-52); AST 34 U/L (14-36); Albumin 3.8 g/dL (3.5-5.0); Alkaline Phosphatase 118 U/L (38-126); Amylase <30 U/L (30-110); Anion Gap 26 mmol/L; Blood Urea Nitrogen 32 mg/dL (7-17); Calcium 9.8 mg/dL (8.4-10.2); Carbon Dioxide 11 mmol/L (22-30); Chloride 92 mmol/L (98-107); Lipase 36 U/L (23-300); Potassium 5.3 mmol/L (3.5-5.1); Sodium 129 mmol/L (137-145); Total Bilirubin 1.4 mg/dL (0.2-1.3); Total Protein 6.2 g/dL (6.3-8.2)
[2017-10-21] MEDS ORDERED: INSULIN REGULAR BOLUS (FROM DRIP BAG) IV ONE (09:13)
[2017-10-21 09:18] LABS: Glucose 990 mg/dL (74-99)
[2017-10-21] MEDS ORDERED: traMADol 50 MG TAB PO PRN (09:25)
[2017-10-21] MEDS: INSULIN REGULAR 100 UNIT in SODIUM CHLORIDE 0.9% 100 ML IV SCH ×2 (09:30→16:58)
[2017-10-21 10:39] LABS: Glucose,Whole Blood >600 mg/dL (75-99)
[2017-10-21 10:59] LABS: Appearance,Urine Clear (Clear); Bilirubin,Urine Negative (Negative); Blood,Urine Negative (Negative); Color,Urine Light Yellow; Glucose,Urine (UA) 4+ (Negative); Leukocyte Esterase,Urine Negative (Negative); Nitrite,Urine Negative (Negative); Protein,Urine Negative (Negative); Specific Gravity,Urine 1.024 (1.001-1.035); Urobilinogen,Urine <2.0 mg/dL (<2.0)
[2017-10-21 11:25] LABS: Ketones,Urine 2+ (Negative)
[2017-10-21 11:36] LABS: Glucose,Whole Blood 538 mg/dL (75-99)
[2017-10-21 12:03] LABS: Phosphorus 3.2 mg/dL (2.5-4.5); Potassium 4.6 mmol/L (3.5-5.1)
[2017-10-21 12:36] LABS: Glucose,Whole Blood 474 mg/dL (75-99)
[2017-10-21 13:40] LABS: Glucose,Whole Blood 399 mg/dL (75-99)
[2017-10-21 14:40] LABS: Glucose,Whole Blood 297 mg/dL (75-99)
[2017-10-21] MEDS: D5-0.45% NACL WITH KCL 20MEQ/L 1,000 ML IV SCH ×2 (15:08→22:35)
[2017-10-21 15:43] LABS: Phosphorus 2.2 mg/dL (2.5-4.5)
[2017-10-21 15:50] LABS: Glucose,Whole Blood 261 mg/dL (75-99)
[2017-10-21] MEDS: SODIUM CHLORIDE 0.9% 1,000 ML IV SCH ×2 (16:18→21:10)
[2017-10-21 16:50] LABS: Glucose,Whole Blood 247 mg/dL (75-99)
[2017-10-21] MEDS: B COMPLEX-VIT C-VIT E-ZINC 1 EACH TAB PO SCH (17:02)
[2017-10-21 17:48] LABS: Glucose,Whole Blood 197 mg/dL (75-99)
[2017-10-21 18:37] LABS: Glucose,Whole Blood 159 mg/dL (75-99)
[2017-10-21 19:31] LABS: Basophils # (A) 0.1 k/uL (0-0.2); Basophils % (A) 1 %; Eosinophils # (A) 0.2 k/uL (0-0.7); Eosinophils % (A) 2 %; HCT 34.1 % (34.0-46.0); HGB 11.8 gm/dL (11.4-16.0); Lymphocytes # (A) 2.5 k/uL (1.0-4.8); Lymphocytes % (A) 22 %; MCH 31.5 pg (25.0-35.0); MCHC 34.6 g/dL (31.0-37.0); Mean Platelet Volume 8.6; Monocytes % (A) 9 %; Neutrophils # (A) 7.5 k/uL (1.3-7.7); Neutrophils % (A) 65 %; Platelet Count 215 k/uL (150-450); RBC 3.74 m/uL (3.80-5.40); RDW 13.2 % (11.5-15.5); WBC 11.5 k/uL (3.8-10.6)
[2017-10-21 19:40] LABS: Glucose,Whole Blood 97 mg/dL (75-99)
[2017-10-21 20:26] LABS: Glucose,Whole Blood 64 mg/dL (75-99)
[2017-10-21 21:04] LABS: Glucose,Whole Blood 76 mg/dL (75-99)
[2017-10-21 22:30] LABS: Glucose,Whole Blood 161 mg/dL (75-99)
[2017-10-21] MEDS: busPIRone HCl 5 MG TAB PO SCH (22:36)
[2017-10-21 23:21] LABS: Glucose,Whole Blood 236 mg/dL (75-99)
[2017-10-22 01:04] LABS: Glucose,Whole Blood 169 mg/dL (75-99)
[2017-10-22 03:12] LABS: Basophils # (A) 0.1 k/uL (0-0.2); Basophils % (A) 1 %; Eosinophils # (A) 0.3 k/uL (0-0.7); Eosinophils % (A) 3 %; HCT 34.2 % (34.0-46.0); HGB 11.5 gm/dL (11.4-16.0); Lymphocytes # (A) 2.4 k/uL (1.0-4.8); Lymphocytes % (A) 26 %; MCH 31.3 pg (25.0-35.0); MCHC 33.6 g/dL (31.0-37.0); MCV 93.1 fL (80.0-100.0); Mean Platelet Volume 8.6; Monocytes # (A) 0.6 k/uL (0-1.0); Monocytes % (A) 7 %; Neutrophils # (A) 5.5 k/uL (1.3-7.7); Neutrophils % (A) 61 %; Platelet Count 181 k/uL (150-450); RBC 3.67 m/uL (3.80-5.40); RDW 13.3 % (11.5-15.5)
[2017-10-22 03:13] LABS: Glucose,Whole Blood 125 mg/dL (75-99)
[2017-10-22 04:58] LABS: Glucose,Whole Blood 208 mg/dL (75-99)
[2017-10-22] MEDS: SODIUM CHLORIDE 0.9% 1,000 ML IV SCH ×4 (05:50→20:43)
[2017-10-22] MEDS: INSULIN REGULAR 100 UNIT in SODIUM CHLORIDE 0.9% 100 ML IV SCH ×2 (05:50→10:35)
[2017-10-22] MEDS: D5-0.45% NACL WITH KCL 20MEQ/L 1,000 ML IV SCH ×2 (05:59→10:35)
[2017-10-22] MEDS: LEVOTHYROXINE 100 MCG TAB PO SCH (06:01)
[2017-10-22 06:40] LABS: Basophils % (A) 1 %; Eosinophils # (A) 0.2 k/uL (0-0.7); Eosinophils % (A) 3 %; HCT 34.2 % (34.0-46.0); HGB 11.3 gm/dL (11.4-16.0); Lymphocytes # (A) 1.7 k/uL (1.0-4.8); Lymphocytes % (A) 24 %; MCH 31.1 pg (25.0-35.0); MCHC 33.1 g/dL (31.0-37.0); MCV 94.1 fL (80.0-100.0); Monocytes # (A) 0.5 k/uL (0-1.0); Monocytes % (A) 6 %; Neutrophils # (A) 4.7 k/uL (1.3-7.7); Neutrophils % (A) 65 %; Platelet Count 153 k/uL (150-450); RBC 3.63 m/uL (3.80-5.40); RDW 13.4 % (11.5-15.5); WBC 7.3 k/uL (3.8-10.6)
[2017-10-22 07:39] LABS: Glucose,Whole Blood 152 mg/dL (75-99)
[2017-10-22] MEDS: FLUoxetine HCL 20 MG CAP PO SCH (08:46)
[2017-10-22] MEDS: busPIRone HCl 5 MG TAB PO SCH ×2 (08:46→20:40)
[2017-10-22] MEDS: LISINOPRIL 10 MG TAB PO SCH (08:47)
[2017-10-22 09:31] LABS: Glucose,Whole Blood 134 mg/dL (75-99)
[2017-10-22 09:36] LABS: Basophils # (A) 0.1 k/uL (0-0.2); Basophils % (A) 1 %; Eosinophils # (A) 0.2 k/uL (0-0.7); Eosinophils % (A) 3 %; HCT 34.5 % (34.0-46.0); HGB 11.5 gm/dL (11.4-16.0); Lymphocytes % (A) 26 %; MCHC 33.3 g/dL (31.0-37.0); Mean Platelet Volume 9.2; Monocytes # (A) 0.6 k/uL (0-1.0); Monocytes % (A) 7 %; Neutrophils # (A) 4.9 k/uL (1.3-7.7); Neutrophils % (A) 63 %; Platelet Count 172 k/uL (150-450); RBC 3.71 m/uL (3.80-5.40); RDW 13.5 % (11.5-15.5); WBC 7.8 k/uL (3.8-10.6)
[2017-10-22 09:44] LABS: Calcium 9.1 mg/dL (8.4-10.2); Potassium 4.5 mmol/L (3.5-5.1); Total Bilirubin 0.7 mg/dL (0.2-1.3); Total Protein 5.3 g/dL (6.3-8.2)
--- NOTE | 2017-10-22 10:36 | P.HPIM ---
History of Present Illness H&P Date: 10/22/17 Chief Complaint: Hyperglycemia 67-year-old female who presented to the emergency room with a chief complaint of hyperglycemia, nausea, and vomiting. The patient states she recently saw her electromechanical assembler and was told her sugars were extremely elevated. Patient thinks she was told it was in the 700s. Patient states she was given a humalog sliding scale from 1-20 units to follow with meals. Patient states she did not completely understand the sliding scale and was doing her best to manage her blood sugars. She also reports not taking her basal insulin at night recently. The patient has a history of diabetes mellitus, hypertension, hypothyroidism, osteoarthritis, anxiety, depression, and panic disorder. Laboratory data: WBC 8.4. Hemoglobin 13.0. Platelet count 212. Sodium 129. Potassium 5.3. Chloride 92. Carbon dioxide 11. Iron 26. BUN 32. Creatinine 1.07. Glucose 990. Lactic acid 4.8. Positive acetone Urinalysis reveals: 4+ glucose, 2+ ketones The patient was admitted to the hospital under the care of Dr. Riddle. Review of Systems GENERAL: Patient denies fever. Denies chills. EYES: Denies blurred vision. Denies vision changes. Denies eye pain. EARS, NOSE, MOUTH, & THROAT: Denies headache. Denies sore throat. Denies ear pain. RESPIRATORY: Denies cough. Denies shortness of breath. Denies sputum production. Denies hemoptysis. CARDIOVASCULAR: Denies chest pain or pressure. Denies palpitations. Denies arrhythmias. GASTROINTESTINAL: Positive for nausea and vomiting, which has resolved. Denies abdominal pain. Denies diarrhea. Denies constipation. Denies heartburn. Denies blood in the stool. GENITOURINARY: Positive for polyuria and polydipsia. Denies burning. Denies dysuria. Denies cloudy urine. Denies blood in the urine. MUSCULOSKELETAL: Denies myalgias. Denies joint swelling. Denies decreased range of motion beyond patients baseline. INTEGUMENTARY: Denies pruitis. Denies rash. PSYCHIATRIC: Denies suicidal or homicial ideations. ENDOCRINE: Denies weight change. Positive for polyuria and polydipsia. HEMATOLOGIC: Denies bleeding disorders. Past Medical History Past Medical History: Heart Failure, Diabetes Mellitus, GI Bleed, Hypertension, Osteoarthritis (OA), Thyroid Disorder Additional Past Medical History / Comment(s): IDDM type I per pt, peripheral neuropathy bilateral hands and feet, arthritis bilateral hands, occasional low back pain, gout L great toe, hypothyroid, L great toe callus, lower GI bleed, diverticulosis, RLS. History of Any Multi-Drug Resistant Organisms: None Reported Past Surgical History: Cholecystectomy, Hernia Repair, Joint Replacement Additional Past Surgical History / Comment(s): Umbilical hernia repair, kidney stone basketing and lithotripsy, total L knee arthroplasty, colonoscopy. Past Anesthesia/Blood Transfusion Reactions: Postoperative Nausea & Vomiting ( PONV) Additional Past Anesthesia/Blood Transfusion Reaction / Comment(s): Ponv x1. Smoking Status: Never smoker - Past Family History Father History Unknown: Yes Family Medical History: Diabetes Mellitus Additional Family Medical History / Comment(s): etoh Mother Family Medical History: Liver Disease Additional Family Medical History / Comment(s): etoh Brother(s) Additional Family Medical History / Comment(s): depression, etoh Medications and Allergies Home Medications Medication Instructions Recorded Confirmed Type Ramipril [Altace] 2.5 mg PO DAILY 01/19/16 10/21/17 History Vit B Comp No.3/Folic/C/Biotin 1 tab PO W/SUPPER 01/19/16 10/21/17 History [Jillian-Davon Rx Tablet] Insulin Glargine,Hum.rec.anlog 48 units SQ HS 01/12/17 10/21/17 History [Tobehzad Solostar] busPIRone HCL 15 mg PO BID 01/12/17 10/21/17 History traMADol HCL [Ultram] 50 mg PO Q8H PRN 01/12/17 10/21/17 History FLUoxetine HCL [PROzac] 20 mg PO DAILY 02/15/17 10/21/17 History Insulin Lispro [humaLOG Kwikpen] See Protocol SQ AC-TID 10/21/17 10/21/17 History Levothyroxine Sodium [Synthroid] 300 mcg PO DAILY 10/21/17 10/21/17 History rOPINIRole HCL [Requip] 1 mg PO BID 10/21/17 10/21/17 History Allergies Allergy/AdvReac Type Severity Reaction Status Date / Time formaldehyde Allergy Itching Verified 10/21/17 08:05 nickel Allergy Itching Verified 10/21/17 08:05 quaternium Allergy Itching Verified 10/21/17 08:05 Sulfa (Sulfonamide Allergy Itching Verified 10/21/17 08:05 Antibiotics) Physical Exam Vitals: Vital Signs Temp Pulse Pulse Resp BP BP Pulse Ox 10/22/17 08:00 98 F 71 18 93/55 94 L 10/22/17 04:30 98.9 F 77 19 90/51 95 10/22/17 04:20 77 19 10/22/17 00:30 80 17 10/22/17 00:15 97.9 F 80 19 91/56 91 L 10/21/17 20:30 76 17 10/21/17 20:10 98.0 F 76 17 98/67 92 L 10/21/17 16:00 98.4 F 78 18 90/52 94 L 10/21/17 15:30 77 20 97/48 96 10/21/17 14:35 81 20 99/56 96 10/21/17 14:00 78 20 95/52 99 10/21/17 13:00 78 20 101/51 99 10/21/17 12:30 98.2 F 74 20 103/56 10/21/17 11:41 79 18 91/52 99 10/21/17 10:26 98.3 F 88 18 119/58 97 Intake and Output 10/21/17 10/22/17 10/22/17 22:59 06:59 14:59 Intake Total 126.735 27.379 23.55 Balance 126.735 27.379 23.55 Intake: Intake, IV Titration 126.735 27.379 23.55 Amount Insulin Regular 100 unit 126.735 27.379 23.55 In Sodium Chloride 0.9% 100 ml @ 0.1 UNITS/KG/HR 12.78 mls/hr IV .[id number] [facility] Rx#:[id number] Other: Voiding Method Bedside Commode Bedside Commode Bedside Commode # Voids 3 Weight 119.7 kg GENERAL: This is a 67-year-old female in no apparent distress at the time of examination. Pleasant and cooperative. HEENT: Head is atraumatic, normocephalic. Pupils are equal, round, and reactive to light. Sclerae anicteric. Conjunctivae are clear. Mucus membranes of the mouth are moist. Neck is supple. RESPIRATORY: Clear to ausculation. No wheezes, rales, or rhonchi. No use of accessory muscles. Patient maintaining oxygen saturation greater than 92%. No chest wall tenderness is noted on palpation or with deep breathing. CARDIOVASCULAR: Regular rate and rhythm. S1 and S2 noted. No systolic or diastolic murmur auscultated. No JVD noted. No S3 or S4 noted. GASTROINTESTINAL: No distention noted. Abdomen soft and round. Normal active bowel sounds auscultated x 4 quadrants. No pain or tenderness noted upon palpation. INTEGUMENTARY: No cyanosis. No jaundice. No rashes noted. No cellulitis noted. EXTREMITIES: 2+ peripheral pulses. no evidence of peripheral edema. No calf tenderness noted. NEUROLOGIC: Cranial nerves II-XII intact. PSYCHIATRIC: Awake, alert, and oriented X 3. Appropriate affect. Intact judgement and insight. Results CBC & Chem 7: 10/22/17 09:11 10/22/17 09:11 Labs: Abnormal Lab Results - Last 24 Hours (Table) 10/21/17 10/21/17 10/21/17 Range/Units 10:25 10:30 11:25 WBC (3.8-10.6) k/uL RBC (3.80-5.40) m/uL Hgb (11.4-16.0) gm/dL Sodium 131 L (137-145) mmol/L Chloride 95 L (98-107) mmol/L Carbon Dioxide 16 L (22-30) mmol/L BUN 33 H (7-17) mg/dL Glucose 643 H* (74-99) mg/dL POC Glucose (mg/dL) >600 H (75-99) mg/dL Plasma Lactic Acid Ugicho (0.7-2.0) mmol/L Phosphorus (2.5-4.5) mg/dL Total Protein (6.3-8.2) g/dL Albumin (3.5-5.0) g/dL Urine Glucose (UA) 4+ H (Negative) Urine Ketones 2+ H (Negative) 10/21/17 10/21/17 10/21/17 Range/Units 11:34 12:32 13:37 WBC (3.8-10.6) k/uL RBC (3.80-5.40) m/uL Hgb (11.4-16.0) gm/dL Sodium (137-145) mmol/L Chloride (98-107) mmol/L Carbon Dioxide (22-30) mmol/L BUN (7-17) mg/dL Glucose (74-99) mg/dL POC Glucose (mg/dL) 538 H 474 H 399 H (75-99) mg/dL Plasma Lactic Acid Guicho (0.7-2.0) mmol/L Phosphorus (2.5-4.5) mg/dL Total Protein (6.3-8.2) g/dL Albumin (3.5-5.0) g/dL Urine Glucose (UA) (Negative) Urine Ketones (Negative) 10/21/17 10/21/17 10/21/17 Range/Units 14:38 14:56 14:56 WBC (3.8-10.6) k/uL RBC (3.80-5.40) m/uL Hgb (11.4-16.0) gm/dL Sodium 134 L (137-145) mmol/L Chloride (98-107) mmol/L Carbon Dioxide 20 L (22-30) mmol/L BUN 33 H (7-17) mg/dL Glucose 309 H (74-99) mg/dL POC Glucose (mg/dL) 297 H (75-99) mg/dL Plasma Lactic Acid Guicho 4.1 H* (0.7-2.0) mmol/L Phosphorus 2.2 L (2.5-4.5) mg/dL Total Protein (6.3-8.2) g/dL Albumin (3.5-5.0) g/dL Urine Glucose (UA) (Negative) Urine Ketones (Negative) 10/21/17 10/21/17 10/21/17 Range/Units 15:43 16:40 17:21 WBC (3.8-10.6) k/uL RBC (3.80-5.40) m/uL Hgb (11.4-16.0) gm/dL Sodium (137-145) mmol/L Chloride (98-107) mmol/L Carbon Dioxide (22-30) mmol/L BUN (7-17) mg/dL Glucose (74-99) mg/dL POC Glucose (mg/dL) 261 H 247 H 197 H (75-99) mg/dL Plasma Lactic Acid Guicho (0.7-2.0) mmol/L Phosphorus (2.5-4.5) mg/dL Total Protein (6.3-8.2) g/dL Albumin (3.5-5.0) g/dL Urine Glucose (UA) (Negative) Urine Ketones (Negative) 10/21/17 10/21/17 10/21/17 Range/Units 18:27 19:06 20:24 WBC 11.5 H (3.8-10.6) k/uL RBC 3.74 L (3.80-5.40) m/uL Hgb (11.4-16.0) gm/dL Sodium (137-145) mmol/L Chloride (98-107) mmol/L Carbon Dioxide (22-30) mmol/L BUN (7-17) mg/dL Glucose (74-99) mg/dL POC Glucose (mg/dL) 159 H 64 L (75-99) mg/dL Plasma Lactic Acid Guicho (0.7-2.0) mmol/L Phosphorus (2.5-4.5) mg/dL Total Protein (6.3-8.2) g/dL Albumin (3.5-5.0) g/dL Urine Glucose (UA) (Negative) Urine Ketones (Negative) 10/21/17 10/21/17 10/22/17 Range/Units 22:10 23:11 00:53 WBC (3.8-10.6) k/uL RBC (3.80-5.40) m/uL Hgb (11.4-16.0) gm/dL Sodium (137-145) mmol/L Chloride (98-107) mmol/L Carbon Dioxide (22-30) mmol/L BUN (7-17) mg/dL Glucose (74-99) mg/dL POC Glucose (mg/dL) 161 H 236 H 169 H (75-99) mg/dL Plasma Lactic Acid Guicho (0.7-2.0) mmol/L Phosphorus (2.5-4.5) mg/dL Total Protein (6.3-8.2) g/dL Albumin (3.5-5.0) g/dL Urine Glucose (UA) (Negative) Urine Ketones (Negative) 10/22/17 10/22/17 10/22/17 Range/Units 02:42 03:12 04:57 WBC (3.8-10.6) k/uL RBC 3.67 L (3.80-5.40) m/uL Hgb (11.4-16.0) gm/dL Sodium (137-145) mmol/L Chloride (98-107) mmol/L Carbon Dioxide (22-30) mmol/L BUN (7-17) mg/dL Glucose (74-99) mg/dL POC Glucose (mg/dL) 125 H 208 H (75-99) mg/dL Plasma Lactic Acid Guicho (0.7-2.0) mmol/L Phosphorus (2.5-4.5) mg/dL Total Protein (6.3-8.2) g/dL Albumin (3.5-5.0) g/dL Urine Glucose (UA) (Negative) Urine Ketones (Negative) 10/22/17 10/22/17 10/22/17 Range/Units 05:59 07:18 09:07 WBC (3.8-10.6) k/uL RBC 3.63 L (3.80-5.40) m/uL Hgb 11.3 L (11.4-16.0) gm/dL Sodium (137-145) mmol/L Chloride (98-107) mmol/L Carbon Dioxide (22-30) mmol/L BUN (7-17) mg/dL Glucose (74-99) mg/dL POC Glucose (mg/dL) 152 H 134 H (75-99) mg/dL Plasma Lactic Acid Guicho (0.7-2.0) mmol/L Phosphorus (2.5-4.5) mg/dL Total Protein (6.3-8.2) g/dL Albumin (3.5-5.0) g/dL Urine Glucose (UA) (Negative) Urine Ketones (Negative) 10/22/17 10/22/17 Range/Units 09:11 09:11 WBC (3.8-10.6) k/uL RBC 3.71 L (3.80-5.40) m/uL Hgb (11.4-16.0) gm/dL Sodium (137-145) mmol/L Chloride (98-107) mmol/L Carbon Dioxide (22-30) mmol/L BUN 27 H (7-17) mg/dL Glucose 128 H (74-99) mg/dL POC Glucose (mg/dL) (75-99) mg/dL Plasma Lactic Acid Guicho (0.7-2.0) mmol/L Phosphorus (2.5-4.5) mg/dL Total Protein 5.3 L (6.3-8.2) g/dL Albumin 3.0 L (3.5-5.0) g/dL Urine Glucose (UA) (Negative) Urine Ketones (Negative) Thrombosis Risk Factor Assmnt - Choose All That Apply Any of the Below Risk Factors Present?: Yes Each Factor Represents 1 point: Obesity (BMI >25) Other Risk Factors: Yes Each Risk Factor Represents 2 Points: Age 61-74 years Other congenital or acquired thrombophilia - If yes, enter type in comment: No Thrombosis Risk Factor Assessment Total Risk Factor Score: 3 Thrombosis Risk Factor Assessment Level: Moderate Risk Assessment and Plan Plan: ASSESSMENT: Diabetic ketoacidosis, present on admission, improving Nausea and vomiting, present on admission, secondary to above, resolved Diabetes mellitus, type II, hemoglobin A1c pending Hyperglycemia, secondary to uncontrolled diabetes mellitus Lactic acidosis, present on admission, secondary to diabetic ketoacidosis, resolved Hyponatremia, present on admission, secondary to diabetic ketoacidosis, resolved Hyperkalemia, present on admission, secondary to diabetic ketoacidosis, resolved Hypertension Hypothyroidism Peripheral neuropathy secondary to diabetes mellitus Anxiety, unspecified Depression, unspecified Obesity: BMI 37.9 PLAN: Discontinue insulin drip as anion gap has closed Begin consistent carbohydrate diet Novolog sliding scale ACHS along with 10 units Novolog with meals if patient is tolerating PO intake Resume Toujeo 48 units at HS 0.9NS at 100cc/hr 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 Up to chair today Home meds as appropriate Monitor labs GI prophylaxis: Protonix 40 mg PO Daily DVT prophylaxis: SCDs to bilateral LE Monitor vital signs and address as appropriate Discharge planning: Patient to return home when stable Further recommendations pending patient's course Possible discharge home tomorrow if patient remains stable Nurse practitioner note has been reviewed by physician. Signing provider agrees with the documented findings, assessment, and plan of care.
[2017-10-22 11:02] LABS: Glucose,Whole Blood 153 mg/dL (75-99)
[2017-10-22] MEDS: INSULIN ASPART 100 UNIT/ML 1 ML 10 ML VIAL SQ SCH ×5 (11:19→21:36)
[2017-10-22 12:02] LABS: Hemoglobin A1C 10.6 % (4.0-6.0)
[2017-10-22 14:33] VITALS: BMI 37.8
[2017-10-22 15:04] LABS: Basophils # (A) 0.1 k/uL (0-0.2); Basophils % (A) 1 %; Eosinophils # (A) 0.2 k/uL (0-0.7); Eosinophils % (A) 3 %; HGB 12.2 gm/dL (11.4-16.0); Lymphocytes # (A) 1.8 k/uL (1.0-4.8); Lymphocytes % (A) 21 %; MCH 30.9 pg (25.0-35.0); MCV 93.7 fL (80.0-100.0); Mean Platelet Volume 9.1; Monocytes # (A) 0.6 k/uL (0-1.0); Monocytes % (A) 7 %; Neutrophils # (A) 5.7 k/uL (1.3-7.7); Neutrophils % (A) 67 %; Platelet Count 197 k/uL (150-450); RBC 3.95 m/uL (3.80-5.40); RDW 13.5 % (11.5-15.5); WBC 8.5 k/uL (3.8-10.6)
[2017-10-22 17:05] LABS: Glucose,Whole Blood 205 mg/dL (75-99)
[2017-10-22] MEDS: B COMPLEX-VIT C-VIT E-ZINC 1 EACH TAB PO SCH (17:18)
[2017-10-22] MEDS ORDERED: INSULIN DETEMIR 100 UNIT/ML 10 ML VIAL SQ SCH (21:00)
[2017-10-22 21:07] LABS: Glucose,Whole Blood 287 mg/dL (75-99)
[2017-10-23 04:10] VITALS: RESP 18
[2017-10-23] MEDS: SODIUM CHLORIDE 0.9% 1,000 ML IV SCH (05:35)
[2017-10-23 06:06] LABS: Glucose,Whole Blood 85 mg/dL (75-99)
[2017-10-23] MEDS: INSULIN ASPART 100 UNIT/ML 1 ML 10 ML VIAL SQ SCH ×4 (06:07→12:31)
[2017-10-23] MEDS: LEVOTHYROXINE 100 MCG TAB PO SCH (06:20)
[2017-10-23] MEDS ORDERED: PANTOPRAZOLE 40 MG TABLET PO SCH (07:30)
[2017-10-23] MEDS: FLUoxetine HCL 20 MG CAP PO SCH (07:37)
[2017-10-23] MEDS: busPIRone HCl 5 MG TAB PO SCH (07:38)
[2017-10-23] MEDS: LISINOPRIL 10 MG TAB PO SCH (07:38)
[2017-10-23 09:42] VITALS: BP 117/60; PULSE 75; TEMP 97
--- NOTE | 2017-10-23 10:40 | P.DS ---
Providers Date of admission: 10/21/17 09:13 Expected date of discharge: 10/23/17 Attending physician: Diogenes Riddle Primary care physician: Diogenes Riddle [facility] Course: 67-year-old female who presented to the emergency room with a chief complaint of hyperglycemia, nausea, and vomiting. The patient states she recently saw her head grower and was told her sugars were extremely elevated. Patient thinks she was told it was in the 700s. Patient states she was given a humalog sliding scale from 1-20 units to follow with meals. Patient states she did not completely understand the sliding scale and was doing her best to manage her blood sugars. She also reports not taking her basal insulin at night recently. The patient has a history of diabetes mellitus, hypertension, hypothyroidism, osteoarthritis, anxiety, depression, and panic disorder. Laboratory data: WBC 8.4. Hemoglobin 13.0. Platelet count 212. Sodium 129. Potassium 5.3. Chloride 92. Carbon dioxide 11. Iron 26. BUN 32. Creatinine 1.07. Glucose 990. Lactic acid 4.8. Positive acetone Urinalysis reveals: 4+ glucose, 2+ ketones The patient was admitted to the hospital under the care of Dr. Riddle. Patient was placed on an insulin drip initially. She was treated with IV fluids. Her anion gap closed and she was transitioned to sliding scale. She is tolerating PO intake without nausea or vomiting. Her blood sugars have improved significantly. The patient was deemed stable for discharge per Dr. Riddle. She is to follow up on an outpatient basis. Per Dr. Riddle, patient is to continue Toujeo 48 units in the evening. She is to take 10 units Humalog three times a day with meals with no sliding scale. DISCHARGE DIAGNOSIS: Diabetic ketoacidosis, present on admission, resolved Nausea and vomiting, present on admission, secondary to above, resolved Diabetes mellitus, type II, hemoglobin A1c 10.6% Hyperglycemia, secondary to uncontrolled diabetes mellitus Lactic acidosis, present on admission, secondary to diabetic ketoacidosis, resolved Hyponatremia, present on admission, secondary to diabetic ketoacidosis, resolved Hyperkalemia, present on admission, secondary to diabetic ketoacidosis, resolved Hypertension Hypothyroidism Peripheral neuropathy secondary to diabetes mellitus Anxiety, unspecified Depression, unspecified Obesity: BMI 37.9 Nurse practitioner note has been reviewed by physician. Signing provider agrees with the documented findings, assessment, and plan of care. Patient Condition at Discharge: Stable Plan - Discharge Summary Discharge Rx Participant: No New Discharge Prescriptions: Continue Vit B Comp No.3/Folic/C/Biotin [Jillian-Davon Rx Tablet] 1 tab PO W/SUPPER Ramipril [Altace] 2.5 mg PO DAILY traMADol HCL [Ultram] 50 mg PO Q8H PRN PRN Reason: Pain Insulin Glargine,Hum.rec.anlog [Toujeo Solostar] 48 units SQ HS busPIRone HCL 15 mg PO BID FLUoxetine HCL [PROzac] 20 mg PO DAILY rOPINIRole HCL [Requip] 1 mg PO BID Levothyroxine Sodium [Synthroid] 300 mcg PO DAILY Changed Insulin Lispro [humaLOG Kwikpen] 10 unit SQ AC-TID #0 Discharge Medication List Ramipril [Altace] 2.5 mg PO DAILY 01/19/16 [History] Vit B Comp No.3/Folic/C/Biotin [Jillian-Davon Rx Tablet] 1 tab PO W/SUPPER 01/19/16 [History] Insulin Glargine,Hum.rec.anlog [Toujeo Solostar] 48 units SQ HS 01/12/17 [ History] busPIRone HCL 15 mg PO BID 01/12/17 [History] traMADol HCL [Ultram] 50 mg PO Q8H PRN 01/12/17 [History] FLUoxetine HCL [PROzac] 20 mg PO DAILY 02/15/17 [History] Levothyroxine Sodium [Synthroid] 300 mcg PO DAILY 10/21/17 [History] rOPINIRole HCL [Requip] 1 mg PO BID 10/21/17 [History] Insulin Lispro [humaLOG Kwikpen] 10 unit SQ AC-TID #0 10/23/17 [Rx] Follow up Appointment(s)/Referral(s): Diogenes Riddle DO [Primary Care Provider] - 1 Week Patient Instructions/Handouts: Diabetic Ketoacidosis (DC) Activity/Diet/Wound Care/Special Instructions: Per Dr. Riddle, continue Toujeo 48 units in the evening. Take 10 units Humalog three times a day with meals. If you dont eat a meal, do not take your Humalog. Discharge Disposition: HOME SELF-CARE
[2017-10-23 11:24] LABS: Glucose,Whole Blood 75 mg/dL (75-99)
== END 2017-10-23 13:45 | disposition home or self-care (01) | DRG 638 ==
LOC: EC 08:00 → 6SEL 09:13
PROVIDERS: ADMIT Family Medicine; ATTEND Family Medicine
DX: E11.10 Type 2 diabetes mellitus with ketoacidosis without coma (principal); E87.1 Hypo-osmolality and hyponatremia; E03.9 Hypothyroidism, unspecified; E11.42 Type 2 diabetes mellitus with diabetic polyneuropathy; E66.9 Obesity, unspecified; E87.5 Hyperkalemia; F32.9 Major depressive disorder, single episode, unspecified; F41.0 Panic disorder [episodic paroxysmal anxiety]; G25.81 Restless legs syndrome; I11.0 Hypertensive heart disease with heart failure; I50.9 Heart failure, unspecified; M19.041 Primary osteoarthritis, right hand; M19.042 Primary osteoarthritis, left hand; K57.90 Diverticulosis of intestine, part unspecified, without perforation or abscess without bleeding; M10.9 Gout, unspecified; Z79.899 Other long term (current) drug therapy; Z79.4 Long term (current) use of insulin; Z68.37 Body mass index [BMI] 37.0-37.9, adult; Z88.2 Allergy status to sulfonamides; Z88.8 Allergy status to other drugs, medicaments and biological substances; Z91.048 Other nonmedicinal substance allergy status; Z96.652 Presence of left artificial knee joint; Z87.442 Personal history of urinary calculi; Z83.3 Family history of diabetes mellitus; Z81.8 Family history of other mental and behavioral disorders; Z84.89 Family history of other specified conditions
CPT/HCPCS: 36415; 80051; 80053; 81003; 82009; 82150; 82565; 82803; 82947; 83036; 83605; 83690; 84100; 84520; 85025; 96374; 99285

== ENCOUNTER 2018-04-14 06:37 | Emergency (ER) | payer MEDICARE, BC ==
[2018-04-14 06:44] VITALS: RESP 18
[2018-04-14] MEDS ORDERED: MORPHINE SULFATE 4 MG/ML SYRINGE IV STA (07:12)
[2018-04-14] MEDS ORDERED: ONDANSETRON 4 MG/2 ML VIAL IVP STA (07:12)
[2018-04-14] MEDS ORDERED: SODIUM CHLORIDE 0.9% 1,000 ML IV STA (07:12)
--- NOTE | 2018-04-14 07:14 | ED ---
Abdominal Pain HPI - General Chief Complaint: Abdominal Pain Stated Complaint: Lower back pain Time Seen by Provider: 04/14/18 07:05 Source: patient, RN notes reviewed Mode of arrival: ambulatory Limitations: no limitations - History of Present Illness Initial Comments: This is a 68-year-old female presents emergency Department chief complaint of left low back pain. Patient states started 1 week ago. She states the pain seems to shift in her low back to the right and left side primarily has had a left-sided this time she states that she has no dysuria no hematuria does admit to some mild nausea with no episodes of vomiting. Patient states that she's had regular bowel movements no diarrhea no constipation denies hematochezia and melena. Patient states she does have a history of kidney stones but this not exactly fill the same. Patient reports no fever or chills. She states that she lays on that side feels better there is worsened with movement. - Related Data Home Medications Medication Instructions Recorded Confirmed Ramipril [Altace] 2.5 mg PO DAILY 01/19/16 04/14/18 Vit B Comp No.3/Folic/C/Biotin 1 tab PO W/SUPPER 01/19/16 04/14/18 [Jillian[facility] Rx Tablet] Insulin Glargine,Hum.rec.anlog 86 units SQ HS 01/12/17 04/14/18 [Isidro Salcedo] busPIRone HCL 15 mg PO BID 01/12/17 04/14/18 FLUoxetine HCL [PROzac] 20 mg PO DAILY 02/15/17 04/14/18 rOPINIRole HCL [Requip] 1 mg PO HS 10/21/17 04/14/18 Gabapentin [Neurontin] 100 mg PO BID 02/27/18 04/14/18 Insulin Lispro [humaLOG Kwikpen] 20 units SQ AC-TID 04/14/18 04/14/18 Levothyroxine Sodium [Synthroid] 50 mcg PO DAILY 04/14/18 04/14/18 Levothyroxine Sodium [Synthroid] 200 mcg PO DAILY 04/14/18 04/14/18 Pentoxifylline 400 mg PO DAILY 04/14/18 04/14/18 traMADol HCl [Ultram] 50 mg PO Q8H PRN 04/14/18 04/14/18 Previous Rx's Medication Instructions Recorded Cephalexin [Keflex] 500 mg PO Q8HR #21 cap 04/14/18 Allergies Allergy/AdvReac Type Severity Reaction Status Date / Time formaldehyde Allergy Itching Verified 04/14/18 06:44 nickel Allergy Itching Verified 04/14/18 06:44 quaternium Allergy Itching Verified 04/14/18 06:44 Sulfa (Sulfonamide Allergy Itching Verified 04/14/18 06:44 Antibiotics) Review of Systems ROS Statement: Those systems with pertinent positive or pertinent negative responses have been documented in the HPI. ROS Other: All systems not noted in ROS Statement are negative. Past Medical History Past Medical History: Heart Failure, Diabetes Mellitus, GI Bleed, Hypertension, Osteoarthritis (OA), Thyroid Disorder Additional Past Medical History / Comment(s): IDDM type I per pt, peripheral neuropathy bilateral hands and feet, arthritis bilateral hands, occasional low back pain, gout L great toe, hypothyroid, L great toe callus, lower GI bleed, diverticulosis, RLS. History of Any Multi-Drug Resistant Organisms: None Reported Past Surgical History: Cholecystectomy, Hernia Repair, Joint Replacement Additional Past Surgical History / Comment(s): Umbilical hernia repair, kidney stone basketing and lithotripsy, total L knee arthroplasty, colonoscopy. Past Anesthesia/Blood Transfusion Reactions: Postoperative Nausea & Vomiting ( PONV) Additional Past Anesthesia/Blood Transfusion Reaction / Comment(s): Ponv x1. Past Psychological History: Anxiety, Depression, Panic Disorder Smoking Status: Never smoker Past Alcohol Use History: None Reported Past Drug Use History: None Reported - Past Family History Father History Unknown: Yes Family Medical History: Diabetes Mellitus Additional Family Medical History / Comment(s): etoh Mother Family Medical History: Liver Disease Additional Family Medical History / Comment(s): etoh Brother(s) Additional Family Medical History / Comment(s): depression, etoh General Exam Limitations: no limitations General appearance: alert, in no apparent distress Head exam: Present: atraumatic, normocephalic, normal inspection Neck exam: Present: normal inspection, full ROM. Absent: tenderness, meningismus, lymphadenopathy Respiratory exam: Present: normal lung sounds bilaterally. Absent: respiratory distress, wheezes, rales, rhonchi, stridor Cardiovascular Exam: Present: regular rate, normal rhythm, normal heart sounds. Absent: systolic murmur, diastolic murmur, rubs, gallop, clicks GI/Abdominal exam: Present: soft, normal bowel sounds. Absent: distended, tenderness, guarding, rebound, rigid Back exam: Present: full ROM, tenderness, CVA tenderness (L). Absent: CVA tenderness (R) Skin exam: Present: warm, dry, intact, normal color. Absent: rash Course Vital Signs 04/14/18 04/14/18 04/14/18 06:42 07:30 08:00 Temperature 98.4 F Pulse Rate 73 65 65 Respiratory 18 18 18 Rate Blood Pressure 130/70 135/69 134/79 O2 Sat by Pulse 98 98 96 Oximetry 04/14/18 04/14/18 04/14/18 08:10 08:20 08:30 Temperature Pulse Rate Respiratory Rate Blood Pressure 144/76 144/76 144/76 O2 Sat by Pulse 96 94 L 99 Oximetry Medical Decision Making - Medical Decision Making 68-year-old female presents emergency Department for left-sided pain. Patient has urinary tract infection or other cause for her symptoms at this time. Patient we discharged on antibiotics return parameters were discussed. Patient did have lab work, CT and urinalysis urine was cultured. - Lab Data Result diagrams: 04/14/18 07:07 04/14/18 07:07 Lab Results 04/14/18 04/14/18 04/14/18 Range/Units 07:02 07:07 07:07 WBC 7.4 (3.8-10.6) k/uL RBC 4.48 (3.80-5.40) m/uL Hgb 14.0 (11.4-16.0) gm/dL Hct 42.9 (34.0-46.0) % MCV 95.6 (80.0-100.0) fL MCH 31.2 (25.0-35.0) pg MCHC 32.6 (31.0-37.0) g/dL RDW 13.0 (11.5-15.5) % Plt Count 209 (150-450) k/uL Neutrophils % 57 % Lymphocytes % 28 % Monocytes % 10 % Eosinophils % 3 % Basophils % 1 % Neutrophils # 4.2 (1.3-7.7) k/uL Lymphocytes # 2.0 (1.0-4.8) k/uL Monocytes # 0.7 (0-1.0) k/uL Eosinophils # 0.2 (0-0.7) k/uL Basophils # 0.1 (0-0.2) k/uL Sodium 139 (137-145) mmol/L Potassium 4.2 (3.5-5.1) mmol/L Chloride 107 (98-107) mmol/L Carbon Dioxide 25 (22-30) mmol/L Anion Gap 7 mmol/L BUN 17 (7-17) mg/dL Creatinine 0.71 (0.52-1.04) mg/dL Est GFR (CKD-EPI)AfAm >90 (>60 ml/min/1.73 sqM) Est GFR (CKD-EPI)NonAf 87 (>60 ml/min/1.73 sqM) Glucose 115 H (74-99) mg/dL Calcium 10.0 (8.4-10.2) mg/dL Total Bilirubin 0.8 (0.2-1.3) mg/dL AST 34 (14-36) U/L ALT 48 (9-52) U/L Alkaline Phosphatase 95 (38-126) U/L Total Protein 6.8 (6.3-8.2) g/dL Albumin 3.7 (3.5-5.0) g/dL Amylase 33 (30-110) U/L Lipase 45 (23-300) U/L Urine Color Yellow Urine Appearance Clear (Clear) Urine pH 6.0 (5.0-8.0) Ur Specific [place] 1.010 (1.001-1.035) Urine Protein Negative (Negative) Urine Glucose (UA) Negative (Negative) Urine Ketones Negative (Negative) Urine Blood Negative (Negative) Urine Nitrite Negative (Negative) Urine Bilirubin Negative (Negative) Urine Urobilinogen <2.0 (<2.0) mg/dL Ur Leukocyte Esterase Large H (Negative) Urine RBC 1 (0-5) /hpf Urine WBC 41 H (0-5) /hpf Ur Squamous Epith Cells 2 (0-4) /hpf Urine Bacteria Few H (None) /hpf Urine Mucus Rare H (None) /hpf Disposition Clinical Impression: UTI (urinary tract infection) Disposition: HOME SELF-CARE Condition: Stable Instructions: Urinary Tract Infection in Women (DC) Additional Instructions: Please return to the Emergency Department if symptoms worsen or any other concerns. Prescriptions: Cephalexin [Keflex] 500 mg PO Q8HR #21 cap Is patient prescribed a controlled substance at d/c from ED?: No Referrals: Diogenes Riddle DO [Primary Care Provider] - 1-2 days Time of Disposition: 09:01
[2018-04-14 07:39] LABS: Appearance,Urine Clear (Clear); Bacteria,Urine Few /hpf; Bilirubin,Urine Negative (Negative); Blood,Urine Negative (Negative); Color,Urine Yellow; Glucose,Urine (UA) Negative (Negative); Ketones,Urine Negative (Negative); Leukocyte Esterase,Urine Large (Negative); Mucus,Urine Rare /hpf; Nitrite,Urine Negative (Negative); Protein,Urine Negative (Negative); RBC,Urine 1 /hpf (0-5); Squamous Epithelial Cell,Urine 2 /hpf (0-4); Urobilinogen,Urine <2.0 mg/dL (<2.0); WBC,Urine 41 /hpf (0-5)
[2018-04-14 07:40] LABS: Basophils # (A) 0.1 k/uL (0-0.2); Basophils % (A) 1 %; Eosinophils # (A) 0.2 k/uL (0-0.7); Eosinophils % (A) 3 %; HCT 42.9 % (34.0-46.0); Lymphocytes % (A) 28 %; MCH 31.2 pg (25.0-35.0); MCHC 32.6 g/dL (31.0-37.0); MCV 95.6 fL (80.0-100.0); Monocytes # (A) 0.7 k/uL (0-1.0); Monocytes % (A) 10 %; Neutrophils # (A) 4.2 k/uL (1.3-7.7); Neutrophils % (A) 57 %; Platelet Count 209 k/uL (150-450); RBC 4.48 m/uL (3.80-5.40); WBC 7.4 k/uL (3.8-10.6)
[2018-04-14 07:54] LABS: ALT 48 U/L (9-52); AST 34 U/L (14-36); Albumin 3.7 g/dL (3.5-5.0); Alkaline Phosphatase 95 U/L (38-126); Amylase 33 U/L (30-110); Anion Gap 7 mmol/L; Blood Urea Nitrogen 17 mg/dL (7-17); Carbon Dioxide 25 mmol/L (22-30); Chloride 107 mmol/L (98-107); Glucose 115 mg/dL (74-99); Lipase 45 U/L (23-300); Potassium 4.2 mmol/L (3.5-5.1); Sodium 139 mmol/L (137-145); Total Bilirubin 0.8 mg/dL (0.2-1.3); Total Protein 6.8 g/dL (6.3-8.2)
--- NOTE | 2018-04-14 08:56 | CT ---
EXAMINATION TYPE: CT abdomen pelvis wo con DATE OF EXAM: 04/14/2018 COMPARISON: 02/15/2017 and 01/12/2017 HISTORY: 68-year-old female Lower back pain-left side CT DLP: 893.8 mGycm. Automated exposure control for dose reduction was used. TECHNIQUE: Contiguous axial scanning of the abdomen and pelvis without IV contrast. Coronal and sagit whitney reconstructions performed. FINDINGS: Heart normal size without pericardial effusion. Fibrotic changes and scarring and bronchiectasis in t he lower lungs. 4 mm pulmonary nodules peripheral right midlung and lingula axial images 6 and 4. Add itional 8 mm pulmonary nodule medial left base, axial image 12. These are present dating back to 01/12 and over one year of stability suggests a benign etiology. Liver enlarged measuring 20.0 cm. Cholecystectomy clips. Adrenal glands, left kidney, spleen, atrophi c pancreas show no gross abnormality by noncontrast CT. Large diverticula involving the second and third portions of the duodenum measuring up to 4.9 cm. Mild right-sided pelvicaliectasis, new from prior. No renal calculus or ureteral calculus is seen. 1. 6 cm posterior cortical cyst is noted. No dilated small bowel, free fluid, or free air. No mesenteric or retroperitoneal lymphadenopathy. Mi ld stool burden. Sigmoid diverticulosis without pericolonic inflammatory change seen. Bladder urine distended. Uterus and both ovaries are visualized. Multiple pelvic phleboliths. No abno rmal fluid collection in the pelvis. No pelvic lymphadenopathy seen. Calcified left inguinal lymph no rohan. Bones: Degenerative changes at the hips. Degenerated levoconvex scoliosis. Degenerative changes throu ghout the lumbar spine. Grade 1 anterolisthesis L5-S1. 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 IMPRESSION: 1. Mild right-sided pelvicaliectasis is new but probably transient as history states pain on the lef t side and no obstructing renal or ureteral calculus is seen. 2. Sigmoid diverticulosis without evidence for acute diverticulitis. 3. Hepatomegaly at 20.0 cm. 4. Degenerated levoconvex scoliosis.
[2018-04-14 09:49] VITALS: BP 137/72; PULSE 63; TEMP 97.2
== END 2018-04-14 09:50 | disposition home or self-care (01) ==
LOC: EC 06:37
DX: N39.0 Urinary tract infection, site not specified (principal); I11.0 Hypertensive heart disease with heart failure; I50.9 Heart failure, unspecified; E11.9 Type 2 diabetes mellitus without complications; M19.90 Unspecified osteoarthritis, unspecified site; G62.9 Polyneuropathy, unspecified; E03.9 Hypothyroidism, unspecified; F41.9 Anxiety disorder, unspecified; F32.9 Major depressive disorder, single episode, unspecified; Z87.442 Personal history of urinary calculi; Z90.49 Acquired absence of other specified parts of digestive tract; Z96.652 Presence of left artificial knee joint; Z98.890 Other specified postprocedural states; Z79.4 Long term (current) use of insulin; Z79.899 Other long term (current) drug therapy; Z88.2 Allergy status to sulfonamides; Z91.048 Other nonmedicinal substance allergy status
CPT/HCPCS: 36415; 80053; 82150; 83690; 85025; 81001; 87086; 74176; 99284; 96374; 96375; 96361; J2270; J2405

== ENCOUNTER 2018-09-05 11:18 | Inpatient (IN) | payer MEDICARE, BC ==
[2018-09-05] MEDS ORDERED: SODIUM CHLORIDE 0.9% 500 ML 500 ML IV ONE (11:25)
[2018-09-05] MEDS ORDERED: SODIUM CHLORIDE 0.9% 1,000 ML IV ONE ×3 (11:25→13:47)
[2018-09-05] MEDS ORDERED: CALCIUM CHLORIDE 100 MG/ML 10 ML SYRINGE IVP STA (11:26)
--- NOTE | 2018-09-05 11:30 | ED ---
General Adult HPI - General Stated complaint: STEMI Time Seen by Provider: 09/05/18 11:18 Source: RN notes reviewed - History of Present Illness Initial comments: This is a 68-year-old female presents emergency department via EMS. According to EMS the patient was found down with agonal respirations by the family and immediately called EMS to respond. When EMS arrived the patient did have a pulse but it was faint and the patient had agonal breathing so they intubated her. Family states the last time he saw her was last evening. At this time there is no family back with the patient she is unresponsive so no further histo ry is obtained at this time patient currently has a pulse she is being bagged and she is occasionally moving her arms to pull at the ET tube. - Related Data Home Medications Medication Instructions Recorded Confirmed Ramipril [Altace] 2.5 mg PO DAILY 01/19/16 09/05/18 Insulin Glargine,Hum.rec.anlog 86 units SQ HS 01/12/17 09/05/18 [Toujeo Solostar] FLUoxetine HCL [PROzac] 20 mg PO DAILY 02/15/17 09/05/18 rOPINIRole HCL [Requip] 1 mg PO HS 10/21/17 09/05/18 Insulin Lispro [humaLOG Kwikpen] 20 units SQ AC-TID 04/14/18 09/05/18 Levothyroxine Sodium [Synthroid] 50 mcg PO DAILY 04/14/18 09/05/18 Levothyroxine Sodium [Synthroid] 200 mcg PO DAILY 04/14/18 09/05/18 traMADol HCl [Ultram] 50 mg PO Q8H PRN 04/14/18 09/05/18 Amoxic-Pot Clav 875-125Mg 1 tab PO Q12HR 09/05/18 09/05/18 [Augmentin 875-125] Oxybutynin Chloride [Ditropan] 5 mg PO BID 09/05/18 09/05/18 Allergies Allergy/AdvReac Type Severity Reaction Status Date / Time formaldehyde Allergy Itching Verified 09/05/18 12:29 nickel Allergy Itching Verified 09/05/18 12:29 quaternium Allergy Itching Verified 09/05/18 12:29 Sulfa (Sulfonamide Allergy Itching Verified 09/05/18 12:29 Antibiotics) Review of Systems ROS Statement: Those systems with pertinent positive or pertinent negative responses have been documented in the HPI. ROS Other: All systems not noted in ROS Statement are negative. Past Medical History Past Medical History: Heart Failure, Diabetes Mellitus, GI Bleed, Hypertension, Osteoarthritis (OA), Thyroid Disorder Additional Past Medical History / Comment(s): IDDM type I per pt, peripheral neuropathy bilateral hands and feet, arthritis bilateral hands, occasional low back pain, gout L great toe, hypothyroid, L great toe callus, lower GI bleed, diverticulosis, RLS. History of Any Multi-Drug Resistant Organisms: None Reported Past Surgical History: Cholecystectomy, Hernia Repair, Joint Replacement Additional Past Surgical History / Comment(s): Umbilical hernia repair, kidney stone basketing and lithotripsy, total L knee arthroplasty, colonoscopy. Past Anesthesia/Blood Transfusion Reactions: Postoperative Nausea & Vomiting (PONV) Additional Past Anesthesia/Blood Transfusion Reaction / Comment(s): Ponv x1. Past Psychological History: Anxiety, Depression, Panic Disorder Smoking Status: Never smoker Past Alcohol Use History: None Reported Past Drug Use History: None Reported - Past Family History Father History Unknown: Yes Family Medical History: Diabetes Mellitus Additional Family Medical History / Comment(s): etoh Mother Family Medical History: Liver Disease Additional Family Medical History / Comment(s): etoh Brother(s) Additional Family Medical History / Comment(s): depression, etoh General Exam - General Exam Comments Initial Comments: GENERAL: Patient is well-developed and well-nourished. Patient is unresponsive and being bagged at this time ENT: Neck is soft and supple. No significant lymphadenopathy is noted. Oropharynx is clear. Moist mucous membranes. Neck has full range of motion without eliciting any pain. EYES: The sclera were anicteric and conjunctiva were pink and moist. Extraocular movements were intact and pupils were equal round and reactive to light. Eyelids were unremarkable. PULMONARY: With an ET tube placed patient has better breath sounds on the right than the left CARDIOVASCULAR: There is a regular rate and rhythm without any murmurs gallops or rubs. ABDOMEN: Abdomen is nondistended SKIN: Skin is clear with no lesions or rashes and otherwise unremarkable. NEUROLOGIC: Patient is completely unresponsive MUSCULOSKELETAL: No lower extremity swelling or edema. No calf tenderness. LYMPHATICS: No significant lymphadenopathy is noted PSYCHIATRIC: Unable to assess Course Vital Signs 0309/05/18 09/05/18 11:30 11:35 11:45 Temperature 98.4 F Pulse Rate 85 87 86 Respiratory 23 12 15 Rate Blood Pressure 115/42 115/42 101/73 O2 Sat by Pulse 100 100 Oximetry 09/05/18 09/05/18 12:15 13:58 Temperature Pulse Rate 82 97 Respiratory 23 Rate Blood Pressure 91/55 109/57 O2 Sat by Pulse 100 Oximetry Procedures - Sepsis Sepsis Focused Exam #1 Time Sepsis Criteria Met: 13:45 Sepsis Focused Exam Date: 09/05/18 Sepsis Focused Exam Time: 14:06 Sepsis Focused Exam Complete: Yes Vital Signs & RN Notes Reviewed: Yes Capillary Refill: < 2 Seconds: Fingers, Toes Peripheral Pulses: Weak: Radial (R), Radial (L) Skin Color: Normal for Patient Respiratory Exam: rhonchi Cardiovascular Exam: regular rate Medical Decision Making - Medical Decision Making EKG shows junctional rhythm at 87 beats a minute QRS is 110 Q-T intervals 4:30 QTC is 417. There is significant ST segment depression diffusely through the precordial leads V3 through V6 as well as inferior leads 1 and 2 and aVF. Patient had significant peaked T waves. Because of the significant peaked T waves I gave the patient calcium chloride. Patient's glucose was elevated so I also gave the patient insulin with an insulin drip to follow. I also gave the patient 2 units of bicarb because the pH was 6.88. CAT scan of the brain showed no acute abnormality. Repeat EKG was done shows sinus tachycardia at a rate of 98 bpm QRS is 112 [place] interval was prolonged at about 160 QT interval was 374 QTC was 477. Chest x-ray shows a possible right upper lobe pneumonia. I started the patient 2 g of Rocephin I [facility] the [facility] states that that the patient as an admission I spoke with Dr. Sheth he accepted the patient to the ICU. Patient has lactic acidosis probably secondary to volume depletion from DKA - Lab Data Result diagrams: 09/05/18 11:29 09/05/18 11:29 Lab Results 09/05/18 09/05/18 09/05/18 Range/Units 11:29 11:29 11:29 WBC 25.7 H (3.8-10.6) k/uL RBC 3.93 (3.80-5.40) m/uL Hgb 12.4 (11.4-16.0) gm/dL Hct 46.8 H (34.0-46.0) % MCV 119.1 H (80.0-100.0) fL MCH 31.6 (25.0-35.0) pg MCHC 26.5 L (31.0-37.0) g/dL RDW 13.8 (11.5-15.5) % Plt Count 245 (150-450) k/uL Neutrophils % (Manual) 75 % Band Neutrophils % 2 % Lymphocytes % (Manual) 9 % Monocytes % (Manual) 8 % Metamyelocytes % 4 % Myelocytes % 4 % Neutrophils # (Manual) 19.70 H (1.3-7.7) k/uL Lymphocytes # (Manual) 2.31 (1.0-4.8) k/uL Monocytes # (Manual) 2.06 H (0-1.0) k/uL Metamyelocytes # (Man) 1.03 H (0) k/uL Myelocytes # (Manual) 1.03 H (0) k/uL Nucleated RBCs 0 (0-0) /100 WBC Manual Slide Review Performed Toxic Granulation Present Toxic Vacuolation Present Hypochromasia Marked Macrocytosis Marked PT 11.8 (9.0-12.0) sec INR 1.1 (<1.2) APTT 26.6 (22.0-30.0) sec D-Dimer 0.75 H (<0.60) mg/L FEU Sample Site ABG pH (7.35-7.45) ABG pCO2 (35-45) mmHg ABG pO2 (83-108) mmHg ABG HCO3 (21-25) mmol/L ABG Total CO2 (19-24) mmol/L ABG O2 Saturation (94-97) % ABG Base Excess mmol/L Crow Test FiO2 % Sodium 123 L (137-145) mmol/L Potassium 7.6 H* (3.5-5.1) mmol/L Chloride 82 L (98-107) mmol/L Carbon Dioxide 6 L* (22-30) mmol/L Anion Gap 35 mmol/L BUN 59 H (7-17) mg/dL Creatinine 3.15 H (0.52-1.04) mg/dL Est GFR (CKD-EPI)AfAm 16 (>60 ml/min/1.73 sqM) Est GFR (CKD-EPI)NonAf 14 (>60 ml/min/1.73 sqM) Glucose 1421 H* (74-99) mg/dL POC Glucose (mg/dL) (75-99) mg/dL POC Glu [employer] ID Plasma Lactic Acid Guicho (0.7-2.0) mmol/L Calcium 8.5 (8.4-10.2) mg/dL Magnesium 2.8 H (1.6-2.3) mg/dL Total Bilirubin 1.1 (0.2-1.3) mg/dL AST 50 H (14-36) U/L ALT 72 H (9-52) U/L Alkaline Phosphatase 111 (38-126) U/L Troponin I (0.000-0.034) ng/mL Total Protein 5.7 L (6.3-8.2) g/dL Albumin 3.3 L (3.5-5.0) g/dL Urine Color Urine Appearance (Clear) Urine pH (5.0-8.0) Ur Specific [place] (1.001-1.035) Urine Protein (Negative) Urine Glucose (UA) (Negative) Urine Ketones (Negative) Urine Blood (Negative) Urine Nitrite (Negative) Urine Bilirubin (Negative) Urine Urobilinogen (<2.0) mg/dL Ur Leukocyte Esterase (Negative) Urine Opiates Screen (NotDetected) Ur Oxycodone Screen (NotDetected) Urine Methadone Screen (NotDetected) Ur Propoxyphene Screen (NotDetected) Ur Barbiturates Screen (NotDetected) U Tricyclic Antidepress (NotDetected) Ur Phencyclidine Scrn (NotDetected) Ur Amphetamines Screen (NotDetected) U Methamphetamines Scrn (NotDetected) U Benzodiazepines Scrn (NotDetected) Urine Cocaine Screen (NotDetected) U Marijuana (THC) Screen (NotDetected) 09/05/18 09/05/18 09/05/18 Range/Units 11:29 11:29 11:39 WBC (3.8-10.6) k/uL RBC (3.80-5.40) m/uL Hgb (11.4-16.0) gm/dL Hct (34.0-46.0) % MCV (80.0-100.0) fL MCH (25.0-35.0) pg MCHC (31.0-37.0) g/dL RDW (11.5-15.5) % Plt Count (150-450) k/uL Neutrophils % (Manual) % Band Neutrophils % % Lymphocytes % (Manual) % Monocytes % (Manual) % Metamyelocytes % % Myelocytes % % Neutrophils # (Manual) (1.3-7.7) k/uL Lymphocytes # (Manual) (1.0-4.8) k/uL Monocytes # (Manual) (0-1.0) k/uL Metamyelocytes # (Man) (0) k/uL Myelocytes # (Manual) (0) k/uL Nucleated RBCs (0-0) /100 WBC Manual Slide Review Toxic Granulation Toxic Vacuolation Hypochromasia Macrocytosis PT (9.0-12.0) sec INR (<1.2) APTT (22.0-30.0) sec D-Dimer (<0.60) mg/L FEU Sample Site RRAD ABG pH <7.00 L* (7.35-7.45) ABG pCO2 26 L (35-45) mmHg ABG pO2 280 H (83-108) mmHg ABG HCO3 5 L* (21-25) mmol/L ABG Total CO2 6 L (19-24) mmol/L ABG O2 Saturation 99.5 H (94-97) % ABG Base Excess -28.5 mmol/L Crow Test Yes FiO2 100 % Sodium (137-145) mmol/L Potassium (3.5-5.1) mmol/L Chloride (98-107) mmol/L Carbon Dioxide (22-30) mmol/L Anion Gap mmol/L BUN (7-17) mg/dL Creatinine (0.52-1.04) mg/dL Est GFR (CKD-EPI)AfAm (>60 ml/min/1.73 sqM) Est GFR (CKD-EPI)NonAf (>60 ml/min/1.73 sqM) Glucose (74-99) mg/dL POC Glucose (mg/dL) (75-99) mg/dL POC Glu [employer] ID Plasma Lactic Acid [place] 9.4 H* (0.7-2.0) mmol/L Calcium (8.4-10.2) mg/dL Magnesium (1.6-2.3) mg/dL Total Bilirubin (0.2-1.3) mg/dL AST (14-36) U/L ALT (9-52) U/L Alkaline Phosphatase (38-126) U/L Troponin I 0.595 H* (0.000-0.034) ng/mL Total Protein (6.3-8.2) g/dL Albumin (3.5-5.0) g/dL Urine Color Urine Appearance (Clear) Urine pH (5.0-8.0) Ur Specific [place] (1.001-1.035) Urine Protein (Negative) Urine Glucose (UA) (Negative) Urine Ketones (Negative) Urine Blood (Negative) Urine Nitrite (Negative) Urine Bilirubin (Negative) Urine Urobilinogen (<2.0) mg/dL Ur Leukocyte Esterase (Negative) Urine Opiates Screen (NotDetected) Ur Oxycodone Screen (NotDetected) Urine Methadone Screen (NotDetected) Ur Propoxyphene Screen (NotDetected) Ur Barbiturates Screen (NotDetected) U Tricyclic Antidepress (NotDetected) Ur Phencyclidine Scrn (NotDetected) Ur Amphetamines Screen (NotDetected) U Methamphetamines Scrn (NotDetected) U Benzodiazepines Scrn (NotDetected) Urine Cocaine Screen (NotDetected) U Marijuana (THC) Screen (NotDetected) 09/05/18 09/05/18 09/05/18 Range/Units 11:50 13:54 Unknown WBC (3.8-10.6) k/uL RBC (3.80-5.40) m/uL Hgb (11.4-16.0) gm/dL Hct (34.0-46.0) % MCV (80.0-100.0) fL MCH (25.0-35.0) pg MCHC (31.0-37.0) g/dL RDW (11.5-15.5) % Plt Count (150-450) k/uL Neutrophils % (Manual) % Band Neutrophils % % Lymphocytes % (Manual) % Monocytes % (Manual) % Metamyelocytes % % Myelocytes % % Neutrophils # (Manual) (1.3-7.7) k/uL Lymphocytes # (Manual) (1.0-4.8) k/uL Monocytes # (Manual) (0-1.0) k/uL Metamyelocytes # (Man) (0) k/uL Myelocytes # (Manual) (0) k/uL Nucleated RBCs (0-0) /100 WBC Manual Slide Review Toxic Granulation Toxic Vacuolation Hypochromasia Macrocytosis PT (9.0-12.0) sec INR (<1.2) APTT (22.0-30.0) sec D-Dimer (<0.60) mg/L FEU Sample Site ABG pH (7.35-7.45) ABG pCO2 (35-45) mmHg ABG pO2 (83-108) mmHg ABG HCO3 (21-25) mmol/L ABG Total CO2 (19-24) mmol/L ABG O2 Saturation (94-97) % ABG Base Excess mmol/L Crow Test FiO2 % Sodium (137-145) mmol/L Potassium (3.5-5.1) mmol/L Chloride (98-107) mmol/L Carbon Dioxide (22-30) mmol/L Anion Gap mmol/L BUN (7-17) mg/dL Creatinine (0.52-1.04) mg/dL Est GFR (CKD-EPI)AfAm (>60 ml/min/1.73 sqM) Est GFR (CKD-EPI)NonAf (>60 ml/min/1.73 sqM) Glucose (74-99) mg/dL POC Glucose (mg/dL) >600 H >600 H (75-99) mg/dL POC Glu [employer] ID Helena Mcneal Kathryn Plasma Lactic Acid [place] (0.7-2.0) mmol/L Calcium (8.4-10.2) mg/dL Magnesium (1.6-2.3) mg/dL Total Bilirubin (0.2-1.3) mg/dL AST (14-36) U/L ALT (9-52) U/L Alkaline Phosphatase (38-126) U/L Troponin I (0.000-0.034) ng/mL Total Protein (6.3-8.2) g/dL Albumin (3.5-5.0) g/dL Urine Color Yellow Urine Appearance Clear (Clear) Urine pH 5.0 (5.0-8.0) Ur Specific [place] 1.017 (1.001-1.035) Urine Protein Negative (Negative) Urine Glucose (UA) 4+ H (Negative) Urine Ketones 1+ H (Negative) Urine Blood Negative (Negative) Urine Nitrite Negative (Negative) Urine Bilirubin Negative (Negative) Urine Urobilinogen <2.0 (<2.0) mg/dL Ur Leukocyte Esterase Negative (Negative) Urine Opiates Screen Not Detected (NotDetected) Ur Oxycodone Screen Not Detected (NotDetected) Urine Methadone Screen Not Detected (NotDetected) Ur Propoxyphene Screen Not Detected (NotDetected) Ur Barbiturates Screen Not Detected (NotDetected) U Tricyclic Antidepress Not Detected (NotDetected) Ur Phencyclidine Scrn Not Detected (NotDetected) Ur Amphetamines Screen Not Detected (NotDetected) U Methamphetamines Scrn Not Detected (NotDetected) U Benzodiazepines Scrn Not Detected (NotDetected) Urine Cocaine Screen Not Detected (NotDetected) U Marijuana (THC) Screen Not Detected (NotDetected) Critical Care Time Critical Care Time: Yes Total Critical Care Time: 50 Disposition Clinical Impression: Diabetic ketoacidosis, Respiratory distress, Sepsis, Lactic acidosis, Hyperkalemia, Acute renal failure, Pneumonia, Elevated troponin Disposition: ADMITTED IP TO THIS [facility] Referrals: Diogenes Riddle DO [Primary Care Provider] - 1-2 days Time of Disposition: 13:51
[2018-09-05 11:42] LABS: ABG Base Excess -28.5 mmol/L; ABG Oxygen Saturation 99.5 % (94-97); ABG PCO2 26 mmHg (35-45); ABG PO2 280 mmHg (83-108); ABG TCO2 6 mmol/L (19-24)
[2018-09-05] MEDS ORDERED: SODIUM BICARB 8.4% 50 ML SYR (1 MEQ/ML) IV ONE ×2 (11:44→17:10)
[2018-09-05] MEDS ORDERED: LORazepam 2 MG/ML INJ IV STA ×2 (11:44→14:29)
[2018-09-05 11:52] LABS: HCT 46.8 % (34.0-46.0); HGB 12.4 gm/dL (11.4-16.0); Hypochromasia Marked; MCH 31.6 pg (25.0-35.0); MCHC 26.5 g/dL (31.0-37.0); MCV 119.1 fL (80.0-100.0); Macrocytosis Marked; Mean Platelet Volume 10.9; Platelet Count 245 k/uL (150-450); RBC 3.93 m/uL (3.80-5.40); RDW 13.8 % (11.5-15.5); WBC 25.7 k/uL (3.8-10.6)
[2018-09-05] MEDS ORDERED: INSULIN REGULAR 100 UNIT/ML VIAL IV ONE (11:57)
[2018-09-05 11:58] LABS: INR 1.1 (<1.2); Partial Thromboplastin Time 26.6 sec (22.0-30.0); Prothrombin Time 11.8 sec (9.0-12.0)
[2018-09-05 12:00] LABS: Glucose,Whole Blood >600 mg/dL (75-99)
[2018-09-05] MEDS ORDERED: INSULIN REGULAR 100 UNIT in SODIUM CHLORIDE 0.9% 100 ML IV SCH (12:00)
[2018-09-05 12:02] LABS: Albumin 3.3 g/dL (3.5-5.0); Calcium 8.5 mg/dL (8.4-10.2); Magnesium 2.8 mg/dL (1.6-2.3); Total Bilirubin 1.1 mg/dL (0.2-1.3); Total Protein 5.7 g/dL (6.3-8.2)
[2018-09-05 12:17] LABS: D-Dimer 0.75 mg/L FEU (<0.60)
[2018-09-05 12:23] LABS: Band Neutrophils % 2 %; Lymphocytes # (M) 2.31 k/uL (1.0-4.8); Metamyelocytes # (M) 1.03 k/uL (0); Metamyelocytes % 4 %; Monocytes # (M) 2.06 k/uL (0-1.0); Myelocytes # (M) 1.03 k/uL (0); Myelocytes % 4 %; Neutrophils % (M) 75 %; Nucleated Red Blood Cells 0 /100 WBC (0-0); Total Cells Counted 200
[2018-09-05 12:24] LABS: Toxic Granulation Present; Toxic Vacuolation Present
--- NOTE | 2018-09-05 12:29 | CT ---
EXAMINATION TYPE: CT brain bruno oliveira DATE OF EXAM: 09/05/2018 COMPARISON: NONE HISTORY: found unresponsive/hx DKA CT DLP: 2051 mGycm Automated exposure control for dose reduction was used. TECHNIQUE: CT scan of the head and cervical spine are performed without contrast. FINDINGS: BRAIN: There is a large scalp hematoma involving both frontal lobes, greater on the right than the le ft. Central structures are midline. There is no evidence of hydrocephalus. No acute focal lesion, mass ef fect or midline shift is seen. I do not see evidence of intracranial blood. There is mucoperiosteal thickening involving the right maxillary sinus and right ethmoid sinus. The r emainder the paranasal sinuses and mastoids are clear. Mastoids IMPRESSION: 1. NO ACUTE INTRACRANIAL ABNORMALITY. 2. BILATERAL FRONTAL SCALP HEMATOMAS. CERVICAL SPINE: There is atelectasis or consolidation in the right upper lobe. There are small, bilat eral pleural effusions. The patient is intubated. Prevertebral soft tissues are otherwise unremarkable. Vertebral body height and alignment are maintained. Atlantoaxial relationships are normal. There is u ncovertebral joint disease at all levels with relative sparing of C2-3. There is facet arthropathy on the left at C2-3 and bilaterally at C3-4 and C4-5 and on the left at C5 -6 no definite protrusion is seen. No fracture is identified. IMPRESSION: 1. NO ACUTE OSSEOUS LESION. 2. DEGENERATIVE CHANGE. 3. MILD ATELECTASIS OR CONSOLIDATION, RIGHT UPPER LOBE. 4. SMALL, BILATERAL PLEURAL EFFUSIONS.
[2018-09-05 12:30] LABS: Potassium 7.6 mmol/L (3.5-5.1)
[2018-09-05 12:45] LABS: Appearance,Urine Clear (Clear); Bilirubin,Urine Negative (Negative); Blood,Urine Negative (Negative); Color,Urine Yellow; Glucose,Urine (UA) 4+ (Negative); Ketones,Urine 1+ (Negative); Leukocyte Esterase,Urine Negative (Negative); Nitrite,Urine Negative (Negative); Protein,Urine Negative (Negative); Specific Gravity,Urine 1.017 (1.001-1.035); Urobilinogen,Urine <2.0 mg/dL (<2.0)
[2018-09-05 13:00] LABS: Amphetamine Screen,Urine Not Detected (NotDetected); Barbiturate Screen,Urine Not Detected (NotDetected); Benzodiazepines Screen,Urine Not Detected (NotDetected); Cocaine Screen,Urine Not Detected (NotDetected); Methadone Screen, Urine Not Detected (NotDetected); Opiate Screen,Urine Not Detected (NotDetected); Oxycodone Screen, Urine Not Detected (NotDetected); Phencyclidine Screen,Urine Not Detected (NotDetected); Tricyclic Antidepressant,Urine Not Detected (NotDetected); Urn Cannabinoid Scrn Not Detected (NotDetected)
--- NOTE | 2018-09-05 13:42 | XR ---
EXAMINATION TYPE: XR chest 1V DATE OF EXAM: 09/05/2018 HISTORY: altered mental status. REFERENCE: Previous study dated 02/15/2017. FINDINGS: The patient is intubated. The tip of the ET tube is approximately 2.3 cm above the clyde. An NG tube is present and its tip is within the stomach. The study is quite rotated. The heart is mildly prominent. There is prominence of both stephanie. There is vascular congestion some questionable edema. Pleural spaces appear clear. IMPRESSION: SUBOPTIMAL EXAMINATION DUE TO ROTATION DEMONSTRATING MILD CARDIOMEGALY, VASCULAR CONGESTION AND MILD EDEMA.
[2018-09-05 13:55] LABS: Glucose,Whole Blood >600 mg/dL (75-99)
[2018-09-05 14:18] LABS: ABG PCO2 33 mmHg (35-45); ABG PO2 81 mmHg (83-108); ABG TCO2 8 mmol/L (19-24)
[2018-09-05 14:26] LABS: ABG HCO3 7 mmol/L (21-25); ABG PH <7.00 (7.35-7.45)
[2018-09-05 15:06] LABS: Glucose,Whole Blood >600 mg/dL (75-99)
[2018-09-05 15:32] LABS: Glucose,Whole Blood >600 mg/dL (75-99)
[2018-09-05] MEDS: CISATRACURIUM 2 MG/ML 5 ML VIAL IV ONE ×2 (15:44→16:05)
[2018-09-05 16:29] LABS: Glucose,Whole Blood >600 mg/dL (75-99)
[2018-09-05] MEDS ORDERED: MORPHINE SULFATE 2 MG/ML SYRINGE IV PRN (16:36)
[2018-09-05] MEDS ORDERED: NALOXONE 0.4 MG/ML 1 ML VIAL IV PRN (16:36)
[2018-09-05] MEDS ORDERED: ACETAMINOPHEN TAB 325 MG TAB PO PRN (16:36)
--- NOTE | 2018-09-05 16:38 | XR ---
EXAMINATION TYPE: XR chest 1V portable DATE OF EXAM: 09/05/2018 COMPARISON: 09/05/2018 HISTORY: Check tube placement TECHNIQUE: Single frontal view of the chest is obtained. FINDINGS: Endotracheal tube is 8 mm from the clyde. There is pulmonary interstitial edema. Thoracic aorta is atheromatous. There is nasogastric tube. There is left-sided central venous catheter with t he tip in the right atrium. No pneumothorax. IMPRESSION: Endotracheal tube is low and should be pulled back 3 cm. Pulmonary interstitial edema un changed.
[2018-09-05 16:43] LABS: Potassium 5.7 mmol/L (3.5-5.1)
[2018-09-05 16:47] LABS: ABG Base Excess -18.6 mmol/L; ABG HCO3 11 mmol/L (21-25); ABG Oxygen Saturation 91.6 % (94-97); ABG PCO2 37 mmHg (35-45); ABG PO2 66 mmHg (83-108); ABG TCO2 12 mmol/L (19-24)
[2018-09-05] MEDS: INSULIN REGULAR 100 UNIT in SODIUM CHLORIDE 0.9% 100 ML IV SCH (16:53)
[2018-09-05] MEDS: SODIUM CHLORIDE 0.9% 1,000 ML IV SCH ×4 (16:56→21:35)
[2018-09-05] MEDS: PIPERACILLIN-TAZOBACTAM 3.375 GM in SODIUM CHLORIDE 0.9% 100 ML IVPB SCH (16:57)
[2018-09-05 17:06] LABS: ABG PH 7.09 (7.35-7.45)
[2018-09-05 17:06] LABS: Albumin 2.7 g/dL (3.5-5.0); Calcium 7.7 mg/dL (8.4-10.2); Total Bilirubin 0.6 mg/dL (0.2-1.3); Total Protein 5.1 g/dL (6.3-8.2)
[2018-09-05] MEDS ORDERED: CISATRACURIUM 2 MG/ML 5 ML VIAL IV ONE (17:10)
[2018-09-05] MEDS ORDERED: SODIUM BICARB 8.4% 50 ML SYR (1 MEQ/ML) ONE (17:13)
[2018-09-05 17:25] LABS: Amorphous Sediment,Urine Rare /hpf; Appearance,Urine Cloudy (Clear); Bilirubin,Urine Negative (Negative); Blood,Urine Moderate (Negative); Cellular Casts,Urine 2 /lpf (0); Color,Urine Yellow; Glucose,Urine (UA) 4+ (Negative); Hyaline Casts,Urine 16 /lpf (0-2); Ketones,Urine Trace (Negative); Leukocyte Esterase,Urine Negative (Negative); Mucus,Urine Rare /hpf; Nitrite,Urine Negative (Negative); Protein,Urine Trace (Negative); Specific Gravity,Urine 1.016 (1.001-1.035); Squamous Epithelial Cell,Urine <1 /hpf (0-4); Urobilinogen,Urine <2.0 mg/dL (<2.0); WBC,Urine 7 /hpf (0-5)
[2018-09-05 17:55] LABS: Glucose,Whole Blood >600 mg/dL (75-99)
[2018-09-05] MEDS: PROPOFOL 1,000 MG in EMPTY BAG 1 BAG IV SCH ×3 (18:00→22:58)
[2018-09-05] MEDS: NOREPINEPHRINE 32 MG in SODIUM CHLORIDE 0.9% 218 ML IV SCH (18:45)
[2018-09-05 18:53] LABS: T4, Free (Free Thyroxine) 0.95 ng/dL (0.78-2.19)
--- NOTE | 2018-09-05 18:53 | CT ---
EXAMINATION TYPE: CT abdomen pelvis wo con DATE OF EXAM: 09/05/2018 COMPARISON: 04/14/2018 HISTORY: Possible bowel obstruction. Pt vomiting fecal mattter CT DLP: 441.4 mGycm Automated exposure control for dose reduction was used. TECHNIQUE: Helical acquisition of images was performed from the lung bases through the pelvis. FINDINGS: There is basilar pulmonary infiltrate and atelectasis. There is no pericardial effusion. There is sma ll bilateral pleural effusions. There are clips from cholecystectomy. Liver shows no focal defect. Spleen appears normal. There is na sogastric tube with the tip in the gastric fundus. There is no evidence of pancreatic mass. The bile ducts are not dilated. There is no adrenal mass. Kidneys show no hydronephrosis. Kidneys have normal size. There is 1.5 cm r ounded exophytic focus on the posterior right kidney and is probably cyst that contains calcium. Unch anged. There is no retroperitoneal adenopathy. There are numerous diverticula in the sigmoid colon. There is no evidence of a bowel obstruction. There is no free air. There is Smith catheter in the urinary tulio dder. There is no free fluid in the pelvis. There is no sign of a pelvic mass. There is no ascites. T here is no mesenteric edema. There is no inguinal hernia. Bony structures are intact. There are multi level spondylotic changes in the lumbar spine. Uterus is anteverted. IMPRESSION: EXTENSIVE AIRSPACE CONSOLIDATION AND ATELECTASIS AT THE LUNG BASES THAT IS NEW COMPARED TO OLD EXAM. NO FREE AIR. NO EVIDENCE OF A BOWEL OBSTRUCTION. Colonic diverticulosis without diverticulitis.
[2018-09-05 19:10] LABS: Hypochromasia Marked; MCH 32.7 pg (25.0-35.0); MCHC 30.7 g/dL (31.0-37.0); Macrocytosis Moderate; Mean Platelet Volume 9.1; Platelet Count 177 k/uL (150-450); RBC 3.67 m/uL (3.80-5.40); RDW 13.6 % (11.5-15.5); WBC 33.8 k/uL (3.8-10.6)
[2018-09-05 19:31] LABS: MCV 106.3 fL (80.0-100.0)
--- NOTE | 2018-09-05 19:44 | CONS ---
CONSULTATION PULMONARY/CRITICAL CARE CONSULTATION: DATE OF CONSULTATION: September 05, 2018 This is a 68-year-old female who presented to the emergency department via EMS. The patient was apparently found down with agonal respirations by the family and immediately called EMS to respond. When EMS responded, she did apparently have a pulse but she had very agonal respirations and the patient was intubated in the field. Apparently, the patient was found face-down or down on the ground in a pool of stool or vomitus. Not clear. Anyway, the patient was unresponsive. The patient was seen and evaluated further in the emergency room. In the emergency room, she was connected to the ventilator tube. Two large-bore IVs were placed. She was found to have a pH of less than 7, a blood sugar greater than 1400. Acetones were positive and she was believed to have diabetic ketoacidosis. The patient was resuscitated with fluids. She received some sodium bicarbonate and some antibiotics. Chest x-ray showed diffuse bilateral infiltrates. All her labs were really quite off. No additional history could be obtained from the ER physician. Most of the history is obtained from the ER physician and the ER adrian. HOME MEDICATIONS: Include Altace, insulin, Prozac, Requip, levothyroxine, tramadol, Augmentin and Ditropan. ALLERGIES: FORMALDEHYDE, NICKEL, SULFA AND QUATERNIUM. MEDICAL HISTORY: Heart failure, diabetes mellitus, GI bleed, hypertension, osteoarthritis, hypothyroidism. In addition, she apparently has peripheral neuropathy, back pain, gout, and diverticulosis. She also suffers from restless leg syndrome. SURGICAL HISTORY: Includes cholecystectomy, hernia repair, joint replacement, umbilical hernia repair, kidney stone surgery with lithotripsy, total left knee arthroplasty and colonoscopy. SOCIAL HISTORY: Negative for tobacco use. She denies any alcohol or illicit drug use. FAMILY HISTORY: Apparently positive for diabetes, liver disease, depression and alcohol abuse. REVIEW OF SYSTEMS: Cannot be obtained. The patient is unresponsive. No history was obtained from her in the emergency room. She is currently on the mechanical ventilator. Current vital signs include a temperature 98.4, heart rate 100, respiratory rate 26, blood pressure 90 systolic, and saturations of 100% on 60% FiO2 and 5 of PEEP. Appears in no acute distress. Currently sedated. HEENT examination is grossly unremarkable. There is an NG tube noted and endotracheal tube noted. NECK: Supple. Full range of motion. No adenopathy. Cardiovascular examination reveals regular rhythm rate. Heart rate about 100. No murmur noted. Lungs reveal coarse rhonchi. Breath sounds are diminished. No wheezes or crackles. ABDOMEN: Soft. No bowel sounds are noted. Extremities are intact. No edema. Skin without rash. Neurologic examination cannot be adequately assessed. LAB DATA: Lab data is reviewed. White count 25.7, hemoglobin 12.4, hematocrit 46.8, platelet count 345,000. PT/INR normal. PTT normal. D-dimer 0.75. Most recent blood gas shows a PO2 of 81, pCO2 of 33, and a pH of less than 7. Her sodium is 123, potassium 7.6, chloride 82, CO2 of 6, anion gap 35. BUN and creatinine were 59 and 3.15. Glucose was 1421. Her lactic acid was 9.4, calcium 8.5, magnesium 2.8, bilirubin 1.1, AST 50, ALT 272, troponin 0.595. Urine was essentially negative. There was glucosuria. Her drug screen was negative say for acetone which was positive. Chest x-ray shows diffuse bilateral infiltrates. This could be from aspiration and/or fluid overload. Head CT was negative for anything acute. Cervical spine was also negative. ASSESSMENT: 1. Hypoxemic respiratory failure, possibly related to underlying aspiration pneumonia, status post intubation and mechanical ventilation. 2. Diabetic ketoacidosis. 3. Severe anion gap metabolic acidosis. 4. Acute versus chronic kidney disease. 5. History of diabetes mellitus. 6. History of hypertension. 7. History of hypothyroidism. 8. History of gout. 9. Obesity. 10.History of heart failure. 11.History of gastrointestinal bleed secondary to diverticulosis. 12.Peripheral neuropathy. 13.Restless leg syndrome. 14.History of kidney stones. 15.Hyperkalemia. 16.Pseudohyponatremia. 17.Rule out acute myocardial ischemia. PLAN: Art line was placed in the right radial arterial site. Left triple-lumen catheter was placed in the internal jugular vein. We had to reintubate the patient because the balloon on the endotracheal tube was dysfunctional. The patient was given paralytics during the procedures. The patient will have a full set of additional bloods drawn for labs. The patient's vent settings were changed to assist AC mode rate of 26, tidal volume 400, FiO2 60%, PEEP of 5. Repeat blood gases to be done. Chest x-ray will be done to check placement of the endotracheal tube. Overall prognosis is very guarded. No additional recommendations are made. We will continue to follow. Medications are reviewed. MMMARIONL / CALLIN: [id number] /
[2018-09-05 19:49] LABS: Glucose,Whole Blood >600 mg/dL (75-99)
[2018-09-05] MEDS: IPRATROPIUM-ALBUTEROL 3 ML NEB INHALATION SCH ×2 (20:03→23:40)
[2018-09-05] MEDS ORDERED: LEVOTHYROXINE IVP 100 MCG/5 ML VIAL IV SCH (20:15)
--- NOTE | 2018-09-05 20:26 | PCN ---
PROCEDURE NOTE PROCEDURE: Left internal jugular triple-lumen catheter. TRIPLE LUMEN CATHETER PLACEMENT: PREOPERATIVE DIAGNOSIS: Administration of fluids and pressors. POSTOP DIAGNOSIS: Administration of fluids and pressors. Indication: Hemodynamic monitoring/Intravenous access. A time-out was completed verifying correct patient, procedure, site, positioning, and implant(s) or special equipment if applicable. The patient was placed in a dependent position appropriate for triple lumen catheter placement based on the vein to be cannulated. The patient's left neck was prepped and draped in sterile fashion. 1% Lidocaine was used to anesthetize the surrounding skin area. A triple lumen 9F Cordis catheter was introduced into the internal jugular vein using Seldinger technique. The catheter was threaded smoothly over the guide wire and appropriate blood return was obtained. Each lumen of the catheter was evacuated of air and flushed with sterile saline. The catheter was then sutured in place to the skin and a sterile dressing applied. Perfusion to the extremity distal to the point of catheter insertion was checked and found to be adequate. There was no immediate complication. Left internal jugular site was employed. There was good blood return from all 3 ports. The catheter was sutured in place. Sterile dressing was applied by the nurse. A chest x-ray was done to check placement to rule out complication. For all these procedures, there was informed consent and universal timeout. BARBARA / ARTHUR: [id number] /
--- NOTE | 2018-09-05 20:26 | PCN ---
PROCEDURE NOTE ARTERIAL LINE PLACEMENT: PREOP DIAGNOSIS: Frequent blood gases and blood gas monitoring. POSTOP DIAGNOSIS: Frequent blood gases and blood gas monitoring. Indications: Hemodynamic monitoring. A time-out was completed verifying correct patient, procedure, site, positioning, and implant(s) or special equipment if applicable. Crow's test was performed to ensure adequate perfusion. The patient's right wrist was prepped and draped in sterile fashion. 1% Lidocaine was used to anesthetize the area. An 18G Arrow arterial line was introduced into the radial artery. The catheter was threaded over the guide wire and the needle was removed with appropriate pulsatile blood return. Blood loss was minimal. The catheter was then sutured in place to the skin and a sterile dressing applied. Perfusion to the extremity distal to the point of catheter insertion was checked and found to be adequate. The patient tolerated the procedure well and there were no complications. There was no immediate complication. The right radial artery was used. The catheter was sutured in place and sterile dressings applied by the nurse. There was informed consent and universal timeout. MMODL / IJN: [id number] /
--- NOTE | 2018-09-05 20:32 | PCN ---
PROCEDURE NOTE PROCEDURE PERFORMED: Re-intubation PREOP DIAGNOSIS: Failure of the packing machine pilot can router balloon on the endotracheal tube. POSTOP DIAGNOSIS: Failure of the packing machine pilot can router balloon on the endotracheal tube. The endotracheal tube stylet was inserted through the old endotracheal tube. The old endotracheal tube was removed. The new endotracheal tube was placed over the stylet. It was placed into position. It was located 23 cm on the lip. The balloon on the new endotracheal tube was inflated. There was good tidal volume and there was good exhaled tidal volumes noted on the ventilator. The patient tolerated the procedure well. The patient was connected to the endotracheal tube and was connected to the tubing to the mechanical ventilator. There was no immediate complication. A chest x-ray will be done to check placement. There was good bilateral breath sounds. There was no immediate complications. For all these procedures, there was informed consent and universal timeout. BARBARA / ARTHUR: [id number] /
[2018-09-05 20:59] LABS: Glucose,Whole Blood >600 mg/dL (75-99)
[2018-09-05] MEDS: CHLORHEXIDINE GLUCONATE 15 ML CUP MUCOUS MEM SCH (21:35)
[2018-09-05 22:19] LABS: Glucose,Whole Blood >600 mg/dL (75-99)
--- NOTE | 2018-09-05 22:51 | P.HPIM ---
History of Present Illness H&P Date: 09/05/18 Chief Complaint: Altered mental status, found unresponsive. Patient is a 68-year-old female with a known history of diabetes type 1, hypertension, hypothyroidism, bilateral peripheral neuropathy diabetic, history of GI bleed, anxiety/depression, panic disorder was initially brought to the hospital we are EMS. Patient was found unresponsive and was in agonal breathing at home and the family found her. Patient was last known to be in good health yesterday. Patient was immediately intubated by EMS due to agonal breathing and faint pulse. Patient was found face down in a pool of vomitus and fecal material. In the ER patient was found to have elevated blood sugars 1421 and lactic acid level 9.2. Leukocytosis with WBC 25.7. Patient was given fluid boluses. Patient was found to be in DKA with a stone positive. No fever on admission. Potassium 7.6 and patient was given flushing gluconate in the ER. Bicarb level was less than 5 and pH less than 7. Patient was started on insulin drip and broad-spectrum antibiotics. Patient was transferred to MICU. Patient was reintubated in the ICU. Patient also had troponin elevation and creatinine level 3.15, sodium 123 Chest x-ray showed suboptimal evaluation due to rotation demonstrating mild cardiomegaly. Vascular congestion and mild edema. CT cervical spine and head showed no acute intracranial abnormality. Bilateral frontal scalp hematomas. Small bilateral pleural effusions. mild atelectasis or consolidation right upper lobe. CT abdomen pelvis showed extensive airspace consolidation and atelectasis at the lung base that is new compared to old exam. No free air. No evidence of bowel obstruction. Review of Systems Review of systems could not be obtained Past Medical History Past Medical History: Heart Failure, Diabetes Mellitus, GI Bleed, Hypertension, Osteoarthritis (OA), Thyroid Disorder Additional Past Medical History / Comment(s): IDDM type I per pt, peripheral neuropathy bilateral hands and feet, arthritis bilateral hands, occasional low back pain, gout L great toe, hypothyroid, L great toe callus, lower GI bleed, diverticulosis, RLS. History of Any Multi-Drug Resistant Organisms: None Reported Past Surgical History: Cholecystectomy, Hernia Repair, Joint Replacement Additional Past Surgical History / Comment(s): Umbilical hernia repair, kidney stone basketing and lithotripsy, total L knee arthroplasty, colonoscopy. Past Anesthesia/Blood Transfusion Reactions: Postoperative Nausea & Vomiting (PONV) Additional Past Anesthesia/Blood Transfusion Reaction / Comment(s): Ponv x1. Past Psychological History: Anxiety, Depression, Panic Disorder Additional Psychological History / Comment(s): Pt resides alone. She uses a cane, walker or wheelchair. Pt drives. Her daughters come daily. Pt manages her medications and blood glucoses. Smoking Status: Never smoker Past Alcohol Use History: None Reported Additional Past Alcohol Use History / Comment(s): Pt states she recently started drinking one glass of wine a nite. Past Drug Use History: None Reported - Past Family History Father History Unknown: Yes Family Medical History: Diabetes Mellitus Additional Family Medical History / Comment(s): etoh Mother Family Medical History: Liver Disease Additional Family Medical History / Comment(s): etoh Brother(s) Additional Family Medical History / Comment(s): depression, etoh Medications and Allergies Home Medications Medication Instructions Recorded Confirmed Type Ramipril [Altace] 2.5 mg PO DAILY 01/19/16 09/05/18 History Insulin Glargine,Hum.rec.anlog 86 units SQ HS 01/12/17 09/05/18 History [Toujeo Solostar] FLUoxetine HCL [PROzac] 20 mg PO DAILY 02/15/17 09/05/18 History rOPINIRole HCL [Requip] 1 mg PO HS 10/21/17 09/05/18 History Insulin Lispro [humaLOG Kwikpen] 20 units SQ AC-TID 04/14/18 09/05/18 History Levothyroxine Sodium [Synthroid] 50 mcg PO DAILY 04/14/18 09/05/18 History Levothyroxine Sodium [Synthroid] 200 mcg PO DAILY 04/14/18 09/05/18 History traMADol HCl [Ultram] 50 mg PO Q8H PRN 04/14/18 09/05/18 History Amoxic-Pot Clav 875-125Mg 1 tab PO Q12HR 09/05/18 09/05/18 History [Augmentin 875-125] Oxybutynin Chloride [Ditropan] 5 mg PO BID 09/05/18 09/05/18 History Allergies Allergy/AdvReac Type Severity Reaction Status Date / Time formaldehyde Allergy Itching Verified 09/05/18 12:29 nickel Allergy Itching Verified 09/05/18 12:29 quaternium Allergy Itching Verified 09/05/18 12:29 Sulfa (Sulfonamide Allergy Itching Verified 09/05/18 12:29 Antibiotics) Physical Exam Vitals: Vital Signs Temp Pulse Resp BP Pulse Ox 09/05/18 21:30 66 26 H 105/47 91 L 09/05/18 21:15 65 27 H 133/60 94 L 09/05/18 21:00 61 27 H 101/51 93 L 09/05/18 20:45 61 27 H 101/56 93 L 09/05/18 20:30 59 L 26 H 103/50 93 L 09/05/18 20:23 60 09/05/18 20:15 59 L 26 H 111/54 98 09/05/18 20:03 62 09/05/18 20:00 98.4 F 60 26 H 96/52 94 L 09/05/18 19:45 60 26 H 99/51 96 09/05/18 19:30 65 26 H 103/54 97 09/05/18 19:15 65 29 H 99/54 98 09/05/18 19:00 66 10 L 118/62 95 09/05/18 18:45 67 29 H 99/45 94 L 09/05/18 18:15 91/48 09/05/18 18:00 71 26 H 96/48 91 L 09/05/18 17:45 74 9 L 115/55 09/05/18 17:30 75 39 H 115/51 93 L 09/05/18 17:15 74 26 H 88/47 95 09/05/18 17:00 76 26 H 89/47 94 L 09/05/18 16:45 79 26 H 96/48 96 09/05/18 16:30 84 26 H 96/43 93 L 09/05/18 16:15 87 26 H 98/43 91 L 09/05/18 16:00 90 18 92/42 94 L 09/05/18 15:45 92 37 H 90/47 98 09/05/18 15:30 102/51 09/05/18 15:15 102/51 09/05/18 15:00 98 24 107/49 97 09/05/18 14:45 97 24 109/51 97 09/05/18 14:30 98 30 H 123/40 94 L 09/05/18 14:15 98 26 H 115/56 96 09/05/18 14:00 98 30 H 109/57 09/05/18 13:58 97 109/57 09/05/18 13:45 93 22 110/51 98 09/05/18 13:30 98 22 106/52 100 09/05/18 13:15 96 45 H 101/43 88 L 09/05/18 13:00 95 24 92/47 87 L 09/05/18 12:45 88 23 108/53 71 L 09/05/18 12:15 82 23 91/55 100 09/05/18 11:45 86 15 101/73 100 09/05/18 11:35 98.4 F 87 12 115/42 100 09/05/18 11:30 85 23 115/42 Intake and Output 09/05/18 09/05/18 09/05/18 06:59 14:59 22:59 Intake Total 17.372 5478.535 Output Total 600 Balance 17.372 4878.535 Intake: IV 2800 0.9 NACL 800 0.9 NACL bolus 2000 Amount of Fluid Infused ( 2500 ml) Intake, IV Titration 17.372 178.535 Amount Insulin Regular 100 unit 17.372 13.776 In Sodium Chloride 0.9% 100 ml @ 0.1 UNITS/KG/HR 12.12 mls/hr IV .Q8H20M J[facility]Y Rx#:[id number] Insulin Regular 100 unit 62.244 In Sodium Chloride 0.9% 100 ml @ 0.1 UNITS/KG/HR 12.12 mls/hr IV .Q8H20M JAVY Rx#:[id number] Norepinephrine 32 mg In 31.675 Sodium Chloride 0.9% 218 ml @ 0.05 MCG/KG/MIN 2. 625 mls/hr IV .Q24H [facility] Rx#:[id number] Propofol 1,000 mg In 70.84 Empty Bag 1 bag @ Titrate IV .Q0M JAVY Rx#: [id number] Output: Urine 400 Emesis 200 Other: Voiding Method Indwelling Catheter Weight 120 kg 112 kg ABP, PAP, CO, CI - Last 8 Hours Arterial Blood Pressure 101/45 Arterial Blood Pressure 121/50 Arterial Blood Pressure 101/46 Arterial Blood Pressure 92/44 Arterial Blood Pressure 90/42 Arterial Blood Pressure 92/42 Arterial Blood Pressure 94/43 Arterial Blood Pressure 96/45 Arterial Blood Pressure 108/46 Arterial Blood Pressure 103/45 Arterial Blood Pressure 130/52 Arterial Blood Pressure 104/44 Arterial Blood Pressure 127/49 Arterial Blood Pressure 128/44 Arterial Blood Pressure 88/47 Arterial Blood Pressure 81/48 Arterial Blood Pressure 102/43 Arterial Blood Pressure 90/28 Arterial Blood Pressure 87/37 PHYSICAL EXAMINATION: Patient is currently sedated and intubated. HEENT: Normocephalic. Neck is supple. Pupils reactive. Nostrils clear. Oral cavity is moist. Ears reveal no drainage. Neck reveals no JVD, carotid bruits, or thyromegaly. CHEST EXAMINATION: Trachea is central. Endotracheal tube in place. Symmetrical expansion. Bilateral diffuse rhonchi/coarse breath sounds. CARDIAC: Normal S1, S2 with no gallops. No murmurs ABDOMEN: Soft. Bowel sounds present. No organomegaly. No abdominal bruits. Extremities: reveal no edema. No clubbing or cyanosis Neurologically . Currently sedated. No gross focal deficits noted Skin: No rash or skin lesions. Psychiatric: Could not be assessed at this time. Musculoskeletal: No joint swelling or deformity. Results CBC & Chem 7: 09/05/18 18:53 09/05/18 16:15 Labs: Abnormal Lab Results - Last 24 Hours (Table) 09/05/18 09/05/18 09/05/18 Range/Units 11:29 11:29 11:29 WBC 25.7 H (3.8-10.6) k/uL RBC (3.80-5.40) m/uL Hct 46.8 H (34.0-46.0) % MCV 119.1 H (80.0-100.0) fL MCHC 26.5 L (31.0-37.0) g/dL Neutrophils # (Manual) 19.70 H (1.3-7.7) k/uL Monocytes # (Manual) 2.06 H (0-1.0) k/uL Metamyelocytes # (Man) 1.03 H (0) k/uL Myelocytes # (Manual) 1.03 H (0) k/uL D-Dimer 0.75 H (<0.60) mg/L FEU ABG pH (7.35-7.45) ABG pCO2 (35-45) mmHg ABG pO2 (83-108) mmHg ABG HCO3 (21-25) mmol/L ABG Total CO2 (19-24) mmol/L ABG O2 Saturation (94-97) % Sodium 123 L (137-145) mmol/L Potassium 7.6 H* (3.5-5.1) mmol/L Chloride 82 L (98-107) mmol/L Carbon Dioxide 6 L* (22-30) mmol/L BUN 59 H (7-17) mg/dL Creatinine 3.15 H (0.52-1.04) mg/dL Glucose 1421 H* (74-99) mg/dL POC Glucose (mg/dL) (75-99) mg/dL Plasma Lactic Acid Guicho (0.7-2.0) mmol/L Calcium (8.4-10.2) mg/dL Phosphorus (2.5-4.5) mg/dL Magnesium 2.8 H (1.6-2.3) mg/dL AST 50 H (14-36) U/L ALT 72 H (9-52) U/L Troponin I (0.000-0.034) ng/mL Total Protein 5.7 L (6.3-8.2) g/dL Albumin 3.3 L (3.5-5.0) g/dL TSH (0.465-4.680) mIU/L Urine Appearance (Clear) Urine Protein (Negative) Urine Glucose (UA) (Negative) Urine Ketones (Negative) Urine Blood (Negative) Urine WBC (0-5) /hpf Amorphous Sediment (None) /hpf Hyaline Casts (0-2) /lpf Urine Mucus (None) /hpf 09/05/18 09/05/18 09/05/18 Range/Units 11:29 11:29 11:39 WBC (3.8-10.6) k/uL RBC (3.80-5.40) m/uL Hct (34.0-46.0) % MCV (80.0-100.0) fL MCHC (31.0-37.0) g/dL Neutrophils # (Manual) (1.3-7.7) k/uL Monocytes # (Manual) (0-1.0) k/uL Metamyelocytes # (Man) (0) k/uL Myelocytes # (Manual) (0) k/uL D-Dimer (<0.60) mg/L FEU ABG pH <7.00 L* (7.35-7.45) ABG pCO2 26 L (35-45) mmHg ABG pO2 280 H (83-108) mmHg ABG HCO3 5 L* (21-25) mmol/L ABG Total CO2 6 L (19-24) mmol/L ABG O2 Saturation 99.5 H (94-97) % Sodium (137-145) mmol/L Potassium (3.5-5.1) mmol/L Chloride (98-107) mmol/L Carbon Dioxide (22-30) mmol/L BUN (7-17) mg/dL Creatinine (0.52-1.04) mg/dL Glucose (74-99) mg/dL POC Glucose (mg/dL) (75-99) mg/dL Plasma Lactic Acid Guicho 9.4 H* (0.7-2.0) mmol/L Calcium (8.4-10.2) mg/dL Phosphorus (2.5-4.5) mg/dL Magnesium (1.6-2.3) mg/dL AST (14-36) U/L ALT (9-52) U/L Troponin I 0.595 H* (0.000-0.034) ng/mL Total Protein (6.3-8.2) g/dL Albumin (3.5-5.0) g/dL TSH (0.465-4.680) mIU/L Urine Appearance (Clear) Urine Protein (Negative) Urine Glucose (UA) (Negative) Urine Ketones (Negative) Urine Blood (Negative) Urine WBC (0-5) /hpf Amorphous Sediment (None) /hpf Hyaline Casts (0-2) /lpf Urine Mucus (None) /hpf 09/05/18 09/05/18 09/05/18 Range/Units 11:50 13:54 14:08 WBC (3.8-10.6) k/uL RBC (3.80-5.40) m/uL Hct (34.0-46.0) % MCV (80.0-100.0) fL MCHC (31.0-37.0) g/dL Neutrophils # (Manual) (1.3-7.7) k/uL Monocytes # (Manual) (0-1.0) k/uL Metamyelocytes # (Man) (0) k/uL Myelocytes # (Manual) (0) k/uL D-Dimer (<0.60) mg/L FEU ABG pH <7.00 L* (7.35-7.45) ABG pCO2 33 L (35-45) mmHg ABG pO2 81 L (83-108) mmHg ABG HCO3 7 L* (21-25) mmol/L ABG Total CO2 8 L (19-24) mmol/L ABG O2 Saturation 92.0 L (94-97) % Sodium (137-145) mmol/L Potassium (3.5-5.1) mmol/L Chloride (98-107) mmol/L Carbon Dioxide (22-30) mmol/L BUN (7-17) mg/dL Creatinine (0.52-1.04) mg/dL Glucose (74-99) mg/dL POC Glucose (mg/dL) >600 H >600 H (75-99) mg/dL Plasma Lactic Acid Guicho (0.7-2.0) mmol/L Calcium (8.4-10.2) mg/dL Phosphorus (2.5-4.5) mg/dL Magnesium (1.6-2.3) mg/dL AST (14-36) U/L ALT (9-52) U/L Troponin I (0.000-0.034) ng/mL Total Protein (6.3-8.2) g/dL Albumin (3.5-5.0) g/dL TSH (0.465-4.680) mIU/L Urine Appearance (Clear) Urine Protein (Negative) Urine Glucose (UA) (Negative) Urine Ketones (Negative) Urine Blood (Negative) Urine WBC (0-5) /hpf Amorphous Sediment (None) /hpf Hyaline Casts (0-2) /lpf Urine Mucus (None) /hpf 09/05/18 09/05/18 09/05/18 Range/Units 14:56 15:31 16:15 WBC (3.8-10.6) k/uL RBC (3.80-5.40) m/uL Hct (34.0-46.0) % MCV (80.0-100.0) fL MCHC (31.0-37.0) g/dL Neutrophils # (Manual) (1.3-7.7) k/uL Monocytes # (Manual) (0-1.0) k/uL Metamyelocytes # (Man) (0) k/uL Myelocytes # (Manual) (0) k/uL D-Dimer (<0.60) mg/L FEU ABG pH (7.35-7.45) ABG pCO2 (35-45) mmHg ABG pO2 (83-108) mmHg ABG HCO3 (21-25) mmol/L ABG Total CO2 (19-24) mmol/L ABG O2 Saturation (94-97) % Sodium (137-145) mmol/L Potassium (3.5-5.1) mmol/L Chloride (98-107) mmol/L Carbon Dioxide (22-30) mmol/L BUN (7-17) mg/dL Creatinine (0.52-1.04) mg/dL Glucose (74-99) mg/dL POC Glucose (mg/dL) >600 H >600 H (75-99) mg/dL Plasma Lactic Acid Guicho (0.7-2.0) mmol/L Calcium (8.4-10.2) mg/dL Phosphorus 9.3 H* (2.5-4.5) mg/dL Magnesium (1.6-2.3) mg/dL AST (14-36) U/L ALT (9-52) U/L Troponin I (0.000-0.034) ng/mL Total Protein (6.3-8.2) g/dL Albumin (3.5-5.0) g/dL TSH (0.465-4.680) mIU/L Urine Appearance (Clear) Urine Protein (Negative) Urine Glucose (UA) (Negative) Urine Ketones (Negative) Urine Blood (Negative) Urine WBC (0-5) /hpf Amorphous Sediment (None) /hpf Hyaline Casts (0-2) /lpf Urine Mucus (None) /hpf 09/05/18 09/05/18 09/05/18 Range/Units 16:15 16:15 16:15 WBC (3.8-10.6) k/uL RBC (3.80-5.40) m/uL Hct (34.0-46.0) % MCV (80.0-100.0) fL MCHC (31.0-37.0) g/dL Neutrophils # (Manual) (1.3-7.7) k/uL Monocytes # (Manual) (0-1.0) k/uL Metamyelocytes # (Man) (0) k/uL Myelocytes # (Manual) (0) k/uL D-Dimer (<0.60) mg/L FEU ABG pH (7.35-7.45) ABG pCO2 (35-45) mmHg ABG pO2 (83-108) mmHg ABG HCO3 (21-25) mmol/L ABG Total CO2 (19-24) mmol/L ABG O2 Saturation (94-97) % Sodium 126 L (137-145) mmol/L Potassium 5.7 H (3.5-5.1) mmol/L Chloride 92 L (98-107) mmol/L Carbon Dioxide 10 L (22-30) mmol/L BUN 60 H (7-17) mg/dL Creatinine 3.10 H (0.52-1.04) mg/dL Glucose 1187 H* (74-99) mg/dL POC Glucose (mg/dL) (75-99) mg/dL Plasma Lactic Acid Guicho 4.6 H* (0.7-2.0) mmol/L Calcium 7.7 L (8.4-10.2) mg/dL Phosphorus (2.5-4.5) mg/dL Magnesium (1.6-2.3) mg/dL AST 59 H (14-36) U/L ALT 70 H (9-52) U/L Troponin I 1.050 H* (0.000-0.034) ng/mL Total Protein 5.1 L (6.3-8.2) g/dL Albumin 2.7 L (3.5-5.0) g/dL TSH 18.500 H (0.465-4.680) mIU/L Urine Appearance (Clear) Urine Protein (Negative) Urine Glucose (UA) (Negative) Urine Ketones (Negative) Urine Blood (Negative) Urine WBC (0-5) /hpf Amorphous Sediment (None) /hpf Hyaline Casts (0-2) /lpf Urine Mucus (None) /hpf 09/05/18 09/05/18 09/05/18 Range/Units 16:18 16:44 17:06 WBC (3.8-10.6) k/uL RBC (3.80-5.40) m/uL Hct (34.0-46.0) % MCV (80.0-100.0) fL MCHC (31.0-37.0) g/dL Neutrophils # (Manual) (1.3-7.7) k/uL Monocytes # (Manual) (0-1.0) k/uL Metamyelocytes # (Man) (0) k/uL Myelocytes # (Manual) (0) k/uL D-Dimer (<0.60) mg/L FEU ABG pH 7.09 L* (7.35-7.45) ABG pCO2 (35-45) mmHg ABG pO2 66 L (83-108) mmHg ABG HCO3 11 L (21-25) mmol/L ABG Total CO2 12 L (19-24) mmol/L ABG O2 Saturation 91.6 L (94-97) % Sodium (137-145) mmol/L Potassium (3.5-5.1) mmol/L Chloride (98-107) mmol/L Carbon Dioxide (22-30) mmol/L BUN (7-17) mg/dL Creatinine (0.52-1.04) mg/dL Glucose (74-99) mg/dL POC Glucose (mg/dL) >600 H (75-99) mg/dL Plasma Lactic Acid Guicho (0.7-2.0) mmol/L Calcium (8.4-10.2) mg/dL Phosphorus (2.5-4.5) mg/dL Magnesium (1.6-2.3) mg/dL AST (14-36) U/L ALT (9-52) U/L Troponin I (0.000-0.034) ng/mL Total Protein (6.3-8.2) g/dL Albumin (3.5-5.0) g/dL TSH (0.465-4.680) mIU/L Urine Appearance Cloudy H (Clear) Urine Protein Trace H (Negative) Urine Glucose (UA) 4+ H (Negative) Urine Ketones Trace H (Negative) Urine Blood Moderate H (Negative) Urine WBC 7 H (0-5) /hpf Amorphous Sediment Rare H (None) /hpf Hyaline Casts 16 H (0-2) /lpf Urine Mucus Rare H (None) /hpf 09/05/18 09/05/18 09/05/18 Range/Units 17:52 18:53 19:48 WBC 33.8 H (3.8-10.6) k/uL RBC 3.67 L (3.80-5.40) m/uL Hct (34.0-46.0) % MCV 106.3 H D (80.0-100.0) fL MCHC 30.7 L (31.0-37.0) g/dL Neutrophils # (Manual) (1.3-7.7) k/uL Monocytes # (Manual) (0-1.0) k/uL Metamyelocytes # (Man) (0) k/uL Myelocytes # (Manual) (0) k/uL D-Dimer (<0.60) mg/L FEU ABG pH (7.35-7.45) ABG pCO2 (35-45) mmHg ABG pO2 (83-108) mmHg ABG HCO3 (21-25) mmol/L ABG Total CO2 (19-24) mmol/L ABG O2 Saturation (94-97) % Sodium (137-145) mmol/L Potassium (3.5-5.1) mmol/L Chloride (98-107) mmol/L Carbon Dioxide (22-30) mmol/L BUN (7-17) mg/dL Creatinine (0.52-1.04) mg/dL Glucose (74-99) mg/dL POC Glucose (mg/dL) >600 H >600 H (75-99) mg/dL Plasma Lactic Acid Guicho (0.7-2.0) mmol/L Calcium (8.4-10.2) mg/dL Phosphorus (2.5-4.5) mg/dL Magnesium (1.6-2.3) mg/dL AST (14-36) U/L ALT (9-52) U/L Troponin I (0.000-0.034) ng/mL Total Protein (6.3-8.2) g/dL Albumin (3.5-5.0) g/dL TSH (0.465-4.680) mIU/L Urine Appearance (Clear) Urine Protein (Negative) Urine Glucose (UA) (Negative) Urine Ketones (Negative) Urine Blood (Negative) Urine WBC (0-5) /hpf Amorphous Sediment (None) /hpf Hyaline Casts (0-2) /lpf Urine Mucus (None) /hpf 09/05/18 09/05/18 Range/Units 20:58 Unknown WBC (3.8-10.6) k/uL RBC (3.80-5.40) m/uL Hct (34.0-46.0) % MCV (80.0-100.0) fL MCHC (31.0-37.0) g/dL Neutrophils # (Manual) (1.3-7.7) k/uL Monocytes # (Manual) (0-1.0) k/uL Metamyelocytes # (Man) (0) k/uL Myelocytes # (Manual) (0) k/uL D-Dimer (<0.60) mg/L FEU ABG pH (7.35-7.45) ABG pCO2 (35-45) mmHg ABG pO2 (83-108) mmHg ABG HCO3 (21-25) mmol/L ABG Total CO2 (19-24) mmol/L ABG O2 Saturation (94-97) % Sodium (137-145) mmol/L Potassium (3.5-5.1) mmol/L Chloride (98-107) mmol/L Carbon Dioxide (22-30) mmol/L BUN (7-17) mg/dL Creatinine (0.52-1.04) mg/dL Glucose (74-99) mg/dL POC Glucose (mg/dL) >600 H (75-99) mg/dL Plasma Lactic Acid Guicho (0.7-2.0) mmol/L Calcium (8.4-10.2) mg/dL Phosphorus (2.5-4.5) mg/dL Magnesium (1.6-2.3) mg/dL AST (14-36) U/L ALT (9-52) U/L Troponin I (0.000-0.034) ng/mL Total Protein (6.3-8.2) g/dL Albumin (3.5-5.0) g/dL TSH (0.465-4.680) mIU/L Urine Appearance (Clear) Urine Protein (Negative) Urine Glucose (UA) 4+ H (Negative) Urine Ketones 1+ H (Negative) Urine Blood (Negative) Urine WBC (0-5) /hpf Amorphous Sediment (None) /hpf Hyaline Casts (0-2) /lpf Urine Mucus (None) /hpf Thrombosis Risk Factor Assmnt - DVT/VTE Prophylaxis DVT/VTE Prophylaxis: Pharmacologic Prophylaxis ordered Assessment and Plan Assessment: Acute hypoxemic respiratory failure secondary to bibasilar infiltrates likely aspiration pneumonia. Requiring mechanical ventilation. Acute severe diabetic ketoacidosis Sepsis/septic shock requiring pressor support Pseudohyponatremia Hyperkalemia due to DKA and acute kidney injury Elevated troponin level. Rule out non-ST elevated LA Acute kidney injury likely prerenal Severe anion gap metabolic acidosis Diabetes type 1 Hypothyroidism Hypertension History of gout History of GI bleed and diverticulosis Osteoarthritis Bilateral diabetic peripheral neuropathy History of renal stones and lithotripsy Anxiety/depression and panic disorder DVT prophylaxis with heparin subcu Plan: Currently on mechanical ventilator assist control. Patient will be continued on IV hydration and insulin drip. Pressor support. Continue with antibiotics the form of Zosyn. Monitor lites every 6 hourly. Continue to follow renal function and troponin trend. Critical care team is on board. Further conditions based on the clinical course. Prognosis is guarded this time. Time with Patient: Greater than 30
[2018-09-05 23:02] LABS: Glucose,Whole Blood >600 mg/dL (75-99)
[2018-09-06 00:06] LABS: Glucose,Whole Blood >600 mg/dL (75-99)
[2018-09-06] MEDS: HEPARIN SODIUM,PORCINE 5,000 UNIT/ML 1 ML VIAL SQ SCH ×4 (00:35→23:52)
[2018-09-06] MEDS: INSULIN REGULAR 100 UNIT in SODIUM CHLORIDE 0.9% 100 ML IV SCH ×4 (00:35→23:55)
[2018-09-06] MEDS: SODIUM CHLORIDE 0.9% 1,000 ML IV SCH ×3 (00:36→18:48)
[2018-09-06 01:06] LABS: Calcium 8.1 mg/dL (8.4-10.2); Magnesium 2.1 mg/dL (1.6-2.3); Phosphorus 4.2 mg/dL (2.5-4.5); Potassium 4.2 mmol/L (3.5-5.1)
[2018-09-06 02:05] LABS: Glucose,Whole Blood >600 mg/dL (75-99)
[2018-09-06] MEDS: PROPOFOL 1,000 MG in EMPTY BAG 1 BAG IV SCH ×7 (03:23→22:30)
[2018-09-06] MEDS: IPRATROPIUM-ALBUTEROL 3 ML NEB INHALATION SCH ×6 (03:24→23:49)
[2018-09-06] MEDS: PIPERACILLIN-TAZOBACTAM 3.375 GM in SODIUM CHLORIDE 0.9% 100 ML IVPB SCH ×3 (04:00→23:52)
[2018-09-06 04:30] LABS: Glucose,Whole Blood 477 mg/dL (75-99)
[2018-09-06 04:58] LABS: Basophils # (A) 0.1 k/uL (0-0.2); Basophils % (A) 0 %; Eosinophils # (A) 0.1 k/uL (0-0.7); Eosinophils % (A) 0 %; HGB 12.7 gm/dL (11.4-16.0); Lymphocytes # (A) 1.1 k/uL (1.0-4.8); Lymphocytes % (A) 4 %; MCH 31.3 pg (25.0-35.0); MCHC 32.7 g/dL (31.0-37.0); Mean Platelet Volume 9.2; Monocytes # (A) 1.9 k/uL (0-1.0); Monocytes % (A) 6 %; Neutrophils # (A) 27.8 k/uL (1.3-7.7); Neutrophils % (A) 89 %; Platelet Count 167 k/uL (150-450); RBC 4.07 m/uL (3.80-5.40); RDW 13.8 % (11.5-15.5); WBC 31.2 k/uL (3.8-10.6)
[2018-09-06 04:59] LABS: MCV 95.7 fL (80.0-100.0)
[2018-09-06 05:06] LABS: Potassium 3.8 mmol/L (3.5-5.1)
[2018-09-06 05:26] LABS: ABG Base Excess -6.8 mmol/L; ABG HCO3 19 mmol/L (21-25); ABG Oxygen Saturation 97.2 % (94-97); ABG PCO2 38 mmHg (35-45); ABG PH 7.32 (7.35-7.45); ABG PO2 86 mmHg (83-108); ABG TCO2 21 mmol/L (19-24)
[2018-09-06 05:27] LABS: Glucose,Whole Blood 520 mg/dL (75-99)
[2018-09-06 06:09] LABS: Glucose,Whole Blood 457 mg/dL (75-99)
[2018-09-06] MEDS ORDERED: Potassium Replacement Protocol 1 EACH MISC MISCELLANE PRN (06:33)
[2018-09-06] MEDS ORDERED: POTASSIUM CHLORIDE 20 MEQ in WATER FOR INJECTION 1 100ML.BAG IVPB ONE (07:00)
[2018-09-06 07:05] LABS: Glucose,Whole Blood 474 mg/dL (75-99)
--- NOTE | 2018-09-06 07:50 | XR ---
EXAMINATION TYPE: XR chest 1V portable DATE OF EXAM: 09/06/2018 COMPARISON: Prior chest x-ray 09/05/2018 HISTORY: Intubated TECHNIQUE: Single frontal view of the chest is obtained. FINDINGS: Endotracheal tube and NG tube are overlying appropriate positions, left jugular central ve nous catheter shows the distal tip over the right atrium. Patient is rotated. There is a defibrillato r pad in place. No evident pneumothorax or sizable effusion. Perihilar increased density again seen. Heart size is stable accounting for rotation. There is an improvement in lung volume. IMPRESSION: Some improvement in aeration. Rotated exam, follow-up recommended.
[2018-09-06 08:21] LABS: Glucose,Whole Blood 277 mg/dL (75-99)
[2018-09-06 08:57] LABS: ABG HCO3 5 mmol/L (21-25); ABG PH <7.00 (7.35-7.45)
[2018-09-06 09:06] LABS: Glucose,Whole Blood 239 mg/dL (75-99)
--- NOTE | 2018-09-06 09:09 | CONS ---
CONSULTATION This is a 68-year-old lady apparently a type [address] Carbajal, an stem mounter in [facility]. She also sees Dr. Diogenes Riddle as a primary care physician. She lives alone and apparently for the last 1 week she has been experiencing fatigue, lack of energy, generalized weakness, URI type symptoms. Her daughter keeps an eye on her periodically. History was obtained mostly from her daughter. Apparently when her went in to check on her yesterday she was found to be unresponsive, agonal respirations and EMS was called. The patient was intubated, bagged and subsequently brought into the hospital. Her blood sugars were in the 1400 range and her pH was 7.0. She was in a DKA with acidosis and unresponsiveness. I am asked to see her mainly because of elevated troponin level. It is quite possible that the patient had a significant hypoxia and her troponin elevation is secondary to oxygen mismatch. She is on a ventilator, not responding at this time because she is also sedated. She is on Levophed, making some urine at this time. She is making some urine. Blood pressure is in the 110 systolic range. She is already on antibiotics. Her chest x-ray from yesterday revealed some pulmonary interstitial edema, but no clear-cut pneumonia was noted. Patient has type 1 diabetes on insulin. She also has history of hypertension, hyperlipidemia. No documented evidence of prior myocardial infarction, but she carries a diagnosis of congestive heart failure. She has hypothyroidism and takes Synthroid 200 mcg daily. Please refer to Dr. Lopez's detailed note for other information. EKG on arrival revealed a sinus mechanism with prominent T-waves and some rhythm strips suggested junctional rhythm with prominent T-waves suggestive of hyperkalemia type picture. However, rhythm strips are better. We will obtain another EKG. PHYSICAL EXAMINATION: Blood pressure is 110/70, pulse rate is about 80 per minute. HEENT examination was not performed. Neck is supple. No JVD. S1-S2 heard normally. No significant murmurs. Lungs reveal ventilator assisted breath sounds. Abdomen is soft. Lower extremities are wrapped in a supportive shoe. Patient apparently has some diabetic foot issues bilaterally. 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 LABORATORY DATA: Suggests that the troponin has gone up to 2.7. Her pH has improved and her blood sugars have improved. MEDICATIONS: Her home medications include insulin and ramipril and Synthroid and Prozac. IMPRESSION: 1. Elevated troponin, probably represents a non-ST elevation myocardial infarction but this is a type 2 myocardial infarction because of oxygen mismatch. I do not believe this is a primary infarction, although patient with her diabetes is at risk for obstructive coronary artery disease as well. 2. Diabetic ketoacidosis, resolving. 3. Respiratory failure secondary to diabetic ketoacidosis and unresponsiveness. 4. Hyperkalemia, which has resolved. 5. History of peripheral arterial disease with bilateral lower extremity foot issues related to diabetes. RECOMMENDATIONS: Based on her clinical picture, I would recommend that we obtain an echocardiogram to assess LV function tomorrow. Obtain another EKG today. Increase Synthroid to 175 mcg daily. Continue subcu heparin and check additional troponins. The patient has multiple comorbid conditions including respiratory failure and diabetic ketoacidosis, probably some anoxic injury and non ST elevation NV. I would not recommend any aggressive intervention. I discussed my thoughts in detail with the patient's daughter. Thank you very much for the consult. BARBARA / CALLIN: [id number] / PEG
[2018-09-06] MEDS: PANTOPRAZOLE 40 MG/10 ML VIAL IV SCH (09:16)
[2018-09-06] MEDS: LEVOTHYROXINE IVP 100 MCG/5 ML VIAL IV SCH (09:17)
[2018-09-06] MEDS: CHLORHEXIDINE GLUCONATE 15 ML CUP MUCOUS MEM SCH ×2 (09:45→20:20)
[2018-09-06 10:05] LABS: Glucose,Whole Blood 241 mg/dL (75-99)
--- NOTE | 2018-09-06 10:24 | PN ---
PROGRESS NOTE This is a progress note dated September 06, 2018. This is a 68-year-old female who presented to the emergency department via EMS. The patient was apparently found down with agonal respirations by the family and EMS was immediately called and responded. She apparently did have a pulse at the scene, but had agonal respirations and had assisted ventilations and then was intubated in the field by EMS. Apparently, the patient was found face down on the ground in a pool either stool or vomitus. That is not clear. Anyway, the patient presented to the emergency department unresponsive. She was seen there by the ER doctor and she was resuscitated with fluids and antibiotics. She was found to be in diabetic ketoacidosis with a pH less than 7 and a blood sugar greater than 1400. The patient received fluids, IV insulin and also was treated for hyperkalemia. Here in the ICU, she had an art line placed and a central line placed. In addition, the cuff on her endotracheal tube was nonfunctional. I had to reintubate the patient. Currently, she is doing a bit better from the standpoint of her metabolic disturbances. She remains on life support. She is on the volume assist-control mode rate of 26, tidal volume 400, FiO2 60%, PEEP of 5. Blood gases show PO2 of 86, pCO2 of 38, and pH 7.32. These blood gases are consistent with a mild metabolic acidosis. She is on propofol at 55 mcg/kg per minute, norepinephrine at 19 mcg/minute, insulin 24 units an hour and 0.9 IV at 200 mL an hour. The FiO2 was dropped from 60-50 percent, PEEP was bumped from 5-8. Her troponin was elevated at 2.72. I did have a long discussion with 2 daughters, Krish. The patient has a past medical history includes diabetes, heart failure, GI bleed, hypertension, DJD, hypothyroidism, peripheral neuropathy, chronic back pain, gout, diverticular disease. Current vital signs are reviewed temperature is 99.3, heart rate 68, respiratory rate is 26, blood pressure 94/52, mean 66 and saturations are in the mid 90s. Appears in no acute distress. Currently sedated. HEENT examination is grossly unremarkable. There is an orally placed endotracheal tube and NG tube. Neck is supple. Full range of motion. No adenopathy or thyromegaly. Cardiovascular examination reveals regular rhythm rate. Heart rate 70. S1, S2 normal. Heart sounds are distant. Lungs reveal coarse rhonchi. Breath sounds are diminished. Breath sounds are equal bilaterally. No crackles. Abdomen is obese. Bowel sounds are heard. Extremities are intact. Minimal edema. Skin without rash. Neurologic examination is difficult to assess. Chest x-ray shows increased perihilar density. There is some bibasilar atelectasis. There may be a small effusion. All-in-all, the chest x-ray is somewhat improved. LAB STUDIES: Microbiological studies are thus far negative. Laboratory data is reviewed. White count 31.2, hemoglobin 12.7, hematocrit 39.0, platelet count 167,000. Sodium 132, potassium 4.2, chloride 99, CO2 18. Anion gap is 15, down from 24. BUN and creatinine were 63 and 2.77 compared to 16 and 3.10 yesterday. Glucose is down to right around 600 or so. Her plasma lactic acid was 4.6, that has come down. Phosphorus is down to 3.6 from 9.3. Calcium 8.1, magnesium 2.1. Troponin 1.050 and 2.480. TSH was 18.5. Urine is noted. Drug screen was also noted. Medications are reviewed. Currently, she is on Zosyn as an antibiotic. ASSESSMENT: 1. Hypoxemic respiratory failure, likely related to underlying aspiration pneumonia requiring intubation and mechanical ventilation. 2. Severe diabetic ketoacidosis with initial pH less than 7 and blood sugar greater than 1400. 3. Severe anion gap metabolic acidosis, in part related to the DKA, but also lactic acidemia. 4. Acute versus chronic kidney disease. 5. History of diabetes mellitus. 6. History of hypertension. 7. Hypothyroidism. 8. History of gout. 9. Obesity. 10.History of congestive heart failure. 11.History of gastrointestinal bleed secondary to diverticular disease. 12.Peripheral neuropathy. 13.Restless legs syndrome. 14.History of kidney stones. 15.Hyperkalemia. 16.Pseudo hyponatremia. 17.Rule out myocardial ischemia/infarction. PLAN: The patient yesterday was resuscitated with fluids, insulin, and other medications. An art line and triple-lumen was placed and she was reintubated because the cuff on the endotracheal tube was nonfunctional. Today, her numbers look a bit better. She still got a long way to go. I had a long discussion with her 2 daughters today. They understand. Currently, her vent settings are appropriate. She has got a very mild metabolic acidosis. The patient will have a daily interruption of sedation. She is requiring Levophed. Cortisol level was more than 100. I do not believe she has adrenal insufficiency. She remains on the insulin drip of 24 units an hour. Cardiology has seen the patient. FiO2 was dropped from 60-50 percent, PEEP was bumped from 5-8. Additional recommendations and suggestions are forthcoming. Prognosis is very guarded. Critical care time 36 minutes. MMODL / IJN: [id number] /
[2018-09-06 11:05] LABS: Glucose,Whole Blood 181 mg/dL (75-99)
[2018-09-06] MEDS: NOREPINEPHRINE 32 MG in SODIUM CHLORIDE 0.9% 218 ML IV SCH (11:46)
[2018-09-06 12:03] LABS: Glucose,Whole Blood 145 mg/dL (75-99)
[2018-09-06] MEDS: D5-0.45% NACL WITH KCL 20MEQ/L 1,000 ML IV SCH ×2 (12:09→17:55)
[2018-09-06 12:50] LABS: Calcium 8.2 mg/dL (8.4-10.2); Magnesium 1.9 mg/dL (1.6-2.3); Phosphorus 3.1 mg/dL (2.5-4.5); Potassium 3.9 mmol/L (3.5-5.1)
[2018-09-06 13:00] LABS: Glucose,Whole Blood 155 mg/dL (75-99)
[2018-09-06 14:17] LABS: Glucose,Whole Blood 138 mg/dL (75-99)
[2018-09-06 16:10] LABS: Glucose,Whole Blood 173 mg/dL (75-99)
[2018-09-06] MEDS: INSULIN ASPART (NovoLOG) 100 UNIT/ML VIAL SQ SCH ×3 (16:25→23:53)
[2018-09-06 20:01] LABS: Glucose,Whole Blood 317 mg/dL (75-99)
[2018-09-06 23:46] LABS: Glucose,Whole Blood 322 mg/dL (75-99)
--- NOTE | 2018-09-07 00:03 | P.PN ---
Subjective Progress Note Date: 09/06/18 Principal diagnosis: Acute DKA Acute hypoxic respiratory failure Sepsis secondary to bilateral pneumonia possible aspiration. Patient is a 68-year-old female with a known history of diabetes type 1, hypertension, hypothyroidism, bilateral peripheral neuropathy diabetic, history of GI bleed, anxiety/depression, panic disorder was initially brought to the hospital we are EMS. Patient was found unresponsive and was in agonal breathing at home and the family found her. Patient was last known to be in good health yesterday. Patient was immediately intubated by EMS due to agonal breathing and faint pulse. Patient was found face down in a pool of vomitus and fecal material. In the ER patient was found to have elevated blood sugars 1421 and lactic acid level 9.2. Leukocytosis with WBC 25.7. Patient was given fluid boluses. Patient was found to be in DKA with a stone positive. No fever on admission. Potassium 7.6 and patient was given flushing gluconate in the ER. Bicarb level was less than 5 and pH less than 7. Patient was started on insulin drip and broad-spectrum antibiotics. Patient was transferred to MICU. Patient was reintubated in the ICU. Patient also had troponin elevation and creatinine level 3.15, sodium 123 Chest x-ray showed suboptimal evaluation due to rotation demonstrating mild cardiomegaly. Vascular congestion and mild edema. CT cervical spine and head showed no acute intracranial abnormality. Bilateral frontal scalp hematomas. Small bilateral pleural effusions. mild atelectasis or consolidation right upper lobe. CT abdomen pelvis showed extensive airspace consolidation and atelectasis at the lung base that is new compared to old exam. No free air. No evidence of bowel obstruction. 09/06/2018 Patient is currently sedated and intubated. Still on pressor support. DKA resolved otherwise and blood sugars are well controlled. WBC count improved to 31 Creatinine level II.5. Troponin level peaked at 2.7 and trending down to 2.4. No fever no chills. CT abdomen showed no evidence of bowel obstruction. Patient is being continued on antibiotics in the form of Zosyn for possible aspiration pneumonia. Discussed with her daughter at bedside in detail. Patient was on Augmentin recently for right ear infection last week. Current medications reviewed. Active Medications Generic Name Dose Route Start Last Admin Trade Name Freq PRN Reason Stop Dose Admin Acetaminophen 650 mg 09/05/18 16:36 Tylenol Tab PO Q4HR PRN Fever and/or Mild Pain Albuterol/Ipratropium 3 ml 09/05/18 20:00 09/06/18 23:49 Duoneb 0.5 Mg-3 Mg/3 Ml Soln INHALATION 3 ml RT-Q4H JAVY Administration Chlorhexidine Gluconate 15 ml 09/05/18 21:00 09/06/18 20:20 Peridex MUCOUS MEM 15 ml BID JAVY Administration Heparin Sodium (Porcine) 5,000 unit 09/06/18 00:00 09/06/18 23:52 Heparin SQ 5,000 unit Q8HR JAVY Administration Insulin Human Regular 100 unit 101 mls @ 12.12 mls/hr 09/05/18 14:00 09/06/18 23:55 / Sodium Chloride IV Not Given .Q8H20M JAVY Protocol 0.1 UNITS/KG/HR Norepinephrine Bitartrate 32 250 mls @ 2.625 mls/hr 09/05/18 16:45 09/06/18 17:20 mg/ Sodium Chloride IV 0.15 mcg/kg/min .Q24H JAVY 7.875 mls/hr Titration Protocol 0.05 MCG/KG/MIN Propofol 1,000 mg/ IV Solution 100 mls @ 0 mls/hr 09/05/18 16:45 09/06/18 22:30 IV 55 mcg/kg/min .Q0M JAVY 39.831 mls/hr Administration Protocol Titrate Potassium Chloride/Dextrose/Sod Cl 1,000 mls @ 50 mls/hr 09/06/18 11:15 09/06/18 17:55 D5%-1/2ns-Kcl 20 Meq/L Iv Solution IV 50 mls/hr .Q20H JAVY Administration Piperacillin Sod/Tazobactam 100 mls @ 25 mls/hr 09/06/18 16:00 09/06/18 23:52 Sod 3.375 gm/ Sodium Chloride IVPB 25 mls/hr Q8HR JAVY Administration Insulin Aspart 0 unit 09/06/18 16:00 09/06/18 23:53 Novolog SQ 5 unit Q4HR JAVY Administration Protocol Levothyroxine Sodium 175 mcg 09/06/18 09:00 09/06/18 09:17 Synthroid Ivp IV 175 mcg DAILY JAVY Administration Miscellaneous Information 1 each 09/06/18 06:33 Potassium Per Protocol MISCELLANE DAILY PRN Per Protocol Protocol Morphine Sulfate 2 mg 09/05/18 16:36 Morphine Sulfate (Inj) IV Q2HR PRN Pain Scale 4 to 5 Naloxone HCl 0.2 mg 09/05/18 16:36 Narcan IV Q2M PRN Opioid Reversal Pantoprazole Sodium 40 mg 09/06/18 09:00 09/06/18 09:16 Protonix IV 40 mg DAILY JAVY Administration Objective - Vital Signs Vital signs: Vital Signs Temp 99.7 F H 09/06/18 16:00 Pulse 70 09/06/18 17:00 Resp 32 H 09/06/18 17:00 BP 99/54 09/06/18 17:00 Pulse Ox 96 09/06/18 17:00 Intake & Output 09/05/18 09/06/18 09/06/18 18:59 06:59 18:59 Intake Total 5131.148 3253.776 2126.826 Output Total 530 495 410 Balance 4601.148 2758.776 1716.826 Weight 112 kg 120.7 kg 120.7 kg Intake: IV 2600 2400 1000 0.9 NACL 600 2400 1000 0.9 NACL bolus 2000 Amount of Fluid Infused ( 2500 ml) Intake, IV Titration 31.148 999.865 7040.826 Amount D5-0.45% NaCl with KCl 600 20Meq/l 1,000 ml @ 50 mls /hr IV .Q20H JAVY Rx#: [id number] Insulin Regular 100 unit 31.148 In Sodium Chloride 0.9% 100 ml @ 0.1 UNITS/KG/HR 12.12 mls/hr IV .Q8H20M JAVY Rx#:[id number] Insulin Regular 100 unit 202.000 125.700 In Sodium Chloride 0.9% 100 ml @ 0.1 UNITS/KG/HR 12.12 mls/hr IV .Q8H20M JAVY Rx#:[id number] Norepinephrine 32 mg In 154.656 110.627 Sodium Chloride 0.9% 218 ml @ 0.05 MCG/KG/MIN 2. 625 mls/hr IV .Q24H JAVY Rx#:[id number] Piperacillin-Tazobactam 3 100 .375 gm In Sodium Chloride 0.9% 100 ml @ 25 mls/hr IVPB Q12H [facility] Rx# :[id number] Potassium Chloride 20 meq 100 In Water For Injection 1 100ml.bag @ 50 mls/hr IVPB ONCE ONE Rx#: [id number] Propofol 1,000 mg In 397.120 190.499 Empty Bag 1 bag @ Titrate IV .Q0M [facility] Rx#: [id number] Output: Urine 330 495 410 Emesis 200 Other: Voiding Method Indwelling Catheter Indwelling Catheter Indwelling Catheter ABP, PAP, CO, CI - Last Documented Arterial Blood Pressure 100/45 - Exam PHYSICAL EXAMINATION: Patient is currently sedated and intubated. HEENT: Normocephalic. Neck is supple. Pupils reactive. Nostrils clear. Oral cavity is moist. Ears reveal no drainage. Neck reveals no JVD, carotid bruits, or thyromegaly. CHEST EXAMINATION: Trachea is central. Endotracheal tube in place. Symmetrical expansion. Bilateral diffuse rhonchi/coarse breath sounds. CARDIAC: Normal S1, S2 with no gallops. No murmurs ABDOMEN: Soft. Bowel sounds present. No organomegaly. No abdominal bruits. Extremities: reveal no edema. No clubbing or cyanosis Neurologically . Currently sedated. No gross focal deficits noted Skin: No rash or skin lesions. Psychiatric: Could not be assessed at this time. Musculoskeletal: No joint swelling or deformity. - Labs CBC & Chem 7: 09/06/18 04:43 09/06/18 12:30 Labs: Abnormal Lab Results - Last 24 Hours (Table) 09/05/18 09/05/18 09/05/18 Range/Units 11:39 16:15 18:53 WBC 33.8 H (3.8-10.6) k/uL RBC 3.67 L (3.80-5.40) m/uL MCV 106.3 H D (80.0-100.0) fL MCHC 30.7 L (31.0-37.0) g/dL Neutrophils # (1.3-7.7) k/uL Monocytes # (0-1.0) k/uL ABG pH <7.00 L* (7.35-7.45) ABG HCO3 5 L* (21-25) mmol/L ABG O2 Saturation (94-97) % Sodium 126 L (137-145) mmol/L Potassium 5.7 H (3.5-5.1) mmol/L Chloride 92 L (98-107) mmol/L Carbon Dioxide 10 L (22-30) mmol/L BUN 60 H (7-17) mg/dL Creatinine 3.10 H (0.52-1.04) mg/dL Glucose 1187 H* (74-99) mg/dL POC Glucose (mg/dL) (75-99) mg/dL Calcium 7.7 L (8.4-10.2) mg/dL AST 59 H (14-36) U/L ALT 70 H (9-52) U/L Troponin I (0.000-0.034) ng/mL Total Protein 5.1 L (6.3-8.2) g/dL Albumin 2.7 L (3.5-5.0) g/dL TSH 18.500 H (0.465-4.680) mIU/L 09/05/18 09/05/18 09/05/18 Range/Units 19:48 20:58 22:17 WBC (3.8-10.6) k/uL RBC (3.80-5.40) m/uL MCV (80.0-100.0) fL MCHC (31.0-37.0) g/dL Neutrophils # (1.3-7.7) k/uL Monocytes # (0-1.0) k/uL ABG pH (7.35-7.45) ABG HCO3 (21-25) mmol/L ABG O2 Saturation (94-97) % Sodium (137-145) mmol/L Potassium (3.5-5.1) mmol/L Chloride (98-107) mmol/L Carbon Dioxide (22-30) mmol/L BUN (7-17) mg/dL Creatinine (0.52-1.04) mg/dL Glucose (74-99) mg/dL POC Glucose (mg/dL) >600 H >600 H >600 H (75-99) mg/dL Calcium (8.4-10.2) mg/dL AST (14-36) U/L ALT (9-52) U/L Troponin I (0.000-0.034) ng/mL Total Protein (6.3-8.2) g/dL Albumin (3.5-5.0) g/dL TSH (0.465-4.680) mIU/L 09/05/18 09/06/18 09/06/18 Range/Units 23:00 00:05 00:10 WBC (3.8-10.6) k/uL RBC (3.80-5.40) m/uL MCV (80.0-100.0) fL MCHC (31.0-37.0) g/dL Neutrophils # (1.3-7.7) k/uL Monocytes # (0-1.0) k/uL ABG pH (7.35-7.45) ABG HCO3 (21-25) mmol/L ABG O2 Saturation (94-97) % Sodium (137-145) mmol/L Potassium (3.5-5.1) mmol/L Chloride (98-107) mmol/L Carbon Dioxide (22-30) mmol/L BUN (7-17) mg/dL Creatinine (0.52-1.04) mg/dL Glucose (74-99) mg/dL POC Glucose (mg/dL) >600 H >600 H (75-99) mg/dL Calcium (8.4-10.2) mg/dL AST (14-36) U/L ALT (9-52) U/L Troponin I 2.480 H* (0.000-0.034) ng/mL Total Protein (6.3-8.2) g/dL Albumin (3.5-5.0) g/dL TSH (0.465-4.680) mIU/L 09/06/18 09/06/18 09/06/18 Range/Units 00:10 02:04 04:28 WBC (3.8-10.6) k/uL RBC (3.80-5.40) m/uL MCV (80.0-100.0) fL MCHC (31.0-37.0) g/dL Neutrophils # (1.3-7.7) k/uL Monocytes # (0-1.0) k/uL ABG pH (7.35-7.45) ABG HCO3 (21-25) mmol/L ABG O2 Saturation (94-97) % Sodium 132 L (137-145) mmol/L Potassium (3.5-5.1) mmol/L Chloride (98-107) mmol/L Carbon Dioxide 18 L (22-30) mmol/L BUN 63 H (7-17) mg/dL Creatinine 2.77 H (0.52-1.04) mg/dL Glucose 725 H* (74-99) mg/dL POC Glucose (mg/dL) >600 H 477 H (75-99) mg/dL Calcium 8.1 L (8.4-10.2) mg/dL AST (14-36) U/L ALT (9-52) U/L Troponin I (0.000-0.034) ng/mL Total Protein (6.3-8.2) g/dL Albumin (3.5-5.0) g/dL TSH (0.465-4.680) mIU/L 09/06/18 09/06/18 09/06/18 Range/Units 04:43 04:43 04:43 WBC 31.2 H (3.8-10.6) k/uL RBC (3.80-5.40) m/uL MCV (80.0-100.0) fL MCHC (31.0-37.0) g/dL Neutrophils # 27.8 H (1.3-7.7) k/uL Monocytes # 1.9 H (0-1.0) k/uL ABG pH (7.35-7.45) ABG HCO3 (21-25) mmol/L ABG O2 Saturation (94-97) % Sodium 134 L (137-145) mmol/L Potassium (3.5-5.1) mmol/L Chloride (98-107) mmol/L Carbon Dioxide 19 L (22-30) mmol/L BUN 59 H (7-17) mg/dL Creatinine 2.59 H (0.52-1.04) mg/dL Glucose 476 H (74-99) mg/dL POC Glucose (mg/dL) (75-99) mg/dL Calcium 8.0 L (8.4-10.2) mg/dL AST (14-36) U/L ALT (9-52) U/L Troponin I 2.720 H* (0.000-0.034) ng/mL Total Protein (6.3-8.2) g/dL Albumin (3.5-5.0) g/dL TSH (0.465-4.680) mIU/L 09/06/18 09/06/18 09/06/18 Range/Units 05:21 05:25 06:08 WBC (3.8-10.6) k/uL RBC (3.80-5.40) m/uL MCV (80.0-100.0) fL MCHC (31.0-37.0) g/dL Neutrophils # (1.3-7.7) k/uL Monocytes # (0-1.0) k/uL ABG pH 7.32 L (7.35-7.45) ABG HCO3 19 L (21-25) mmol/L ABG O2 Saturation 97.2 H (94-97) % Sodium (137-145) mmol/L Potassium (3.5-5.1) mmol/L Chloride (98-107) mmol/L Carbon Dioxide (22-30) mmol/L BUN (7-17) mg/dL Creatinine (0.52-1.04) mg/dL Glucose (74-99) mg/dL POC Glucose (mg/dL) 520 H 457 H (75-99) mg/dL Calcium (8.4-10.2) mg/dL AST (14-36) U/L ALT (9-52) U/L Troponin I (0.000-0.034) ng/mL Total Protein (6.3-8.2) g/dL Albumin (3.5-5.0) g/dL TSH (0.465-4.680) mIU/L 09/06/18 09/06/18 09/06/18 Range/Units 07:03 08:20 09:04 WBC (3.8-10.6) k/uL RBC (3.80-5.40) m/uL MCV (80.0-100.0) fL MCHC (31.0-37.0) g/dL Neutrophils # (1.3-7.7) k/uL Monocytes # (0-1.0) k/uL ABG pH (7.35-7.45) ABG HCO3 (21-25) mmol/L ABG O2 Saturation (94-97) % Sodium (137-145) mmol/L Potassium (3.5-5.1) mmol/L Chloride (98-107) mmol/L Carbon Dioxide (22-30) mmol/L BUN (7-17) mg/dL Creatinine (0.52-1.04) mg/dL Glucose (74-99) mg/dL POC Glucose (mg/dL) 474 H 277 H 239 H (75-99) mg/dL Calcium (8.4-10.2) mg/dL AST (14-36) U/L ALT (9-52) U/L Troponin I (0.000-0.034) ng/mL Total Protein (6.3-8.2) g/dL Albumin (3.5-5.0) g/dL TSH (0.465-4.680) mIU/L 09/06/18 09/06/18 09/06/18 Range/Units 10:03 11:04 12:01 WBC (3.8-10.6) k/uL RBC (3.80-5.40) m/uL MCV (80.0-100.0) fL MCHC (31.0-37.0) g/dL Neutrophils # (1.3-7.7) k/uL Monocytes # (0-1.0) k/uL ABG pH (7.35-7.45) ABG HCO3 (21-25) mmol/L ABG O2 Saturation (94-97) % Sodium (137-145) mmol/L Potassium (3.5-5.1) mmol/L Chloride (98-107) mmol/L Carbon Dioxide (22-30) mmol/L BUN (7-17) mg/dL Creatinine (0.52-1.04) mg/dL Glucose (74-99) mg/dL POC Glucose (mg/dL) 241 H 181 H 145 H (75-99) mg/dL Calcium (8.4-10.2) mg/dL AST (14-36) U/L ALT (9-52) U/L Troponin I (0.000-0.034) ng/mL Total Protein (6.3-8.2) g/dL Albumin (3.5-5.0) g/dL TSH (0.465-4.680) mIU/L 09/06/18 09/06/18 09/06/18 Range/Units 12:30 12:30 12:58 WBC (3.8-10.6) k/uL RBC (3.80-5.40) m/uL MCV (80.0-100.0) fL MCHC (31.0-37.0) g/dL Neutrophils # (1.3-7.7) k/uL Monocytes # (0-1.0) k/uL ABG pH (7.35-7.45) ABG HCO3 (21-25) mmol/L ABG O2 Saturation (94-97) % Sodium (137-145) mmol/L Potassium (3.5-5.1) mmol/L Chloride 108 H (98-107) mmol/L Carbon Dioxide 20 L (22-30) mmol/L BUN 59 H (7-17) mg/dL Creatinine 2.50 H (0.52-1.04) mg/dL Glucose 119 H (74-99) mg/dL POC Glucose (mg/dL) 155 H (75-99) mg/dL Calcium 8.2 L (8.4-10.2) mg/dL AST (14-36) U/L ALT (9-52) U/L Troponin I 2.470 H* (0.000-0.034) ng/mL Total Protein (6.3-8.2) g/dL Albumin (3.5-5.0) g/dL TSH (0.465-4.680) mIU/L 09/06/18 09/06/18 Range/Units 14:15 16:06 WBC (3.8-10.6) k/uL RBC (3.80-5.40) m/uL MCV (80.0-100.0) fL MCHC (31.0-37.0) g/dL Neutrophils # (1.3-7.7) k/uL Monocytes # (0-1.0) k/uL ABG pH (7.35-7.45) ABG HCO3 (21-25) mmol/L ABG O2 Saturation (94-97) % Sodium (137-145) mmol/L Potassium (3.5-5.1) mmol/L Chloride (98-107) mmol/L Carbon Dioxide (22-30) mmol/L BUN (7-17) mg/dL Creatinine (0.52-1.04) mg/dL Glucose (74-99) mg/dL POC Glucose (mg/dL) 138 H 173 H (75-99) mg/dL Calcium (8.4-10.2) mg/dL AST (14-36) U/L ALT (9-52) U/L Troponin I (0.000-0.034) ng/mL Total Protein (6.3-8.2) g/dL Albumin (3.5-5.0) g/dL TSH (0.465-4.680) mIU/L Microbiology - Last 24 Hours (Table) 09/05/18 23:55 Gram Stain - Preliminary Sputum Sputum Culture - Preliminary 09/05/18 17:06 Urine Culture - Preliminary Urine,Catheterized Assessment and Plan Assessment: Acute hypoxemic respiratory failure secondary to bibasilar infiltrates likely aspiration pneumonia. Requiring mechanical ventilation. Acute severe diabetic ketoacidosis. Resolved. Sepsis/septic shock requiring pressor support Pseudohyponatremia. Improved. Hyperkalemia due to DKA and acute kidney injury resolved Elevated troponin level. Likely due to DKA, sepsis and CPR . Trending down. Cannot rule out acute NM. Acute kidney injury likely prerenal possible ATN Severe anion gap metabolic acidosis. Resolved Diabetes type 1 Hypothyroidism Hypertension History of gout History of GI bleed and diverticulosis Osteoarthritis Bilateral diabetic peripheral neuropathy History of renal stones and lithotripsy Anxiety/depression and panic disorder DVT prophylaxis with heparin subcu Plan: Currently on mechanical ventilator assist control. Patient will be continued on IV hydration and insulin has been discontinued and patient was started on Levemir. Continued on Pressor support. Continue with antibiotics the form of Zosyn. Continue to follow renal function and troponin trend. Critical care team is on board. Further conditions based on the clinical course. Prognosis is guarded this time. Time with Patient: Greater than 30
[2018-09-07] MEDS: PROPOFOL 1,000 MG in EMPTY BAG 1 BAG IV SCH ×8 (02:16→23:54)
[2018-09-07] MEDS: IPRATROPIUM-ALBUTEROL 3 ML NEB INHALATION SCH ×6 (03:26→23:38)
[2018-09-07 03:48] LABS: Glucose,Whole Blood 310 mg/dL (75-99)
[2018-09-07] MEDS: INSULIN ASPART (NovoLOG) 100 UNIT/ML VIAL SQ SCH ×2 (04:20→07:12)
[2018-09-07 04:27] LABS: ABG Base Excess -3.1 mmol/L; ABG HCO3 22 mmol/L (21-25); ABG Oxygen Saturation 99.1 % (94-97); ABG PCO2 36 mmHg (35-45); ABG PH 7.39 (7.35-7.45); ABG PO2 118 mmHg (83-108); ABG TCO2 23 mmol/L (19-24)
[2018-09-07 04:49] LABS: Calcium 8.4 mg/dL (8.4-10.2); Potassium 4.2 mmol/L (3.5-5.1)
[2018-09-07 05:01] LABS: Basophils % (A) 0 %; Eosinophils % (A) 0 %; HCT 39.2 % (34.0-46.0); HGB 12.8 gm/dL (11.4-16.0); Lymphocytes # (A) 1.9 k/uL (1.0-4.8); Lymphocytes % (A) 8 %; MCH 31.1 pg (25.0-35.0); MCHC 32.7 g/dL (31.0-37.0); Mean Platelet Volume 9.7; Monocytes # (A) 1.3 k/uL (0-1.0); Monocytes % (A) 6 %; Neutrophils # (A) 19.7 k/uL (1.3-7.7); Neutrophils % (A) 85 %; Platelet Count 145 k/uL (150-450); RBC 4.13 m/uL (3.80-5.40); RDW 14.1 % (11.5-15.5)
[2018-09-07 07:11] LABS: Glucose,Whole Blood 279 mg/dL (75-99)
--- NOTE | 2018-09-07 07:20 | XR ---
EXAMINATION TYPE: XR chest 1V portable DATE OF EXAM: 09/07/2018 Comparison: 09/06/2018 Clinical History: 68-year-old female Tube placement Findings: ET tube tip 2.4 cm from the clyde. NG tube tip below the diaphragm. The sidehole is located 1.5 cm a gabriela the GE junction. It could be further advanced by 5 cm into the stomach. Left subclavian CVC tip in the lower right atrium. Heart normal size. Mild hyperinflation. Some mild patchy retrocardiac opacity. Otherwise, no josesito consolidation or pleural effusion. Leftward patient rotation alters normal cardiac mediastinal contours. Impression: 1. NG tube side hole is above the GE junction. Consider advancing the NG tube further into the stomac h the 5 cm. 2. Left subclavian CVC tip stable in the lower right atrium. 3. Exam remains rotated. Overall stable. There may be some patchy retrocardiac opacity.
[2018-09-07] MEDS: INSULIN REGULAR 100 UNIT in SODIUM CHLORIDE 0.9% 100 ML IV SCH ×2 (08:38→11:26)
[2018-09-07] MEDS: PIPERACILLIN-TAZOBACTAM 3.375 GM in SODIUM CHLORIDE 0.9% 100 ML IVPB SCH ×3 (08:42→23:54)
[2018-09-07] MEDS: PANTOPRAZOLE 40 MG/10 ML VIAL IV SCH (08:42)
[2018-09-07] MEDS: CHLORHEXIDINE GLUCONATE 15 ML CUP MUCOUS MEM SCH ×2 (08:42→20:06)
[2018-09-07] MEDS: HEPARIN SODIUM,PORCINE 5,000 UNIT/ML 1 ML VIAL SQ SCH ×2 (08:43→16:10)
[2018-09-07] MEDS: LEVOTHYROXINE IVP 100 MCG/5 ML VIAL IV SCH (08:43)
--- NOTE | 2018-09-07 09:34 | PCN ---
PROCEDURE NOTE ARTERIAL LINE PLACEMENT: Indications: Hemodynamic monitoring. A time-out was completed verifying correct patient, procedure, site, positioning, and implant(s) or special equipment if applicable. Crow's test was performed to ensure adequate perfusion. The patient's left wrist or right/left groin was prepped and draped in sterile fashion. 1% Lidocaine was used to anesthetize the area. An 18G Arrow arterial line was introduced into the radial/femoral artery. The catheter was threaded over the guide wire and the needle was removed with appropriate pulsatile blood return. Blood loss was minimal. The catheter was then sutured in place to the skin and a sterile dressing applied. Perfusion to the extremity distal to the point of catheter insertion was checked and found to be adequate. The patient tolerated the procedure well and there were no complications. Left arterial line was placed without any immediate complications, a good waveform was noted, blood return was noted, the line was flushed, sutured in place, and covered with a sterile dressing. The patient tolerated the procedure very well. MMODL / IJN: [id number] /
--- NOTE | 2018-09-07 09:55 | PN ---
PROGRESS NOTE This is a lady with type 1 brittle diabetes, hypertension, hyperlipidemia, who was found unresponsive and was in DKA and brought into the hospital with respiratory failure. She is still on a ventilator. She is still on Levophed about nearly 20 mcg or so. Blood pressure is in the 110 systolic range. She is making urine. Hemodynamically, she seems a little better. However, she is unresponsive, still being sedated on a ventilator. Troponin has gone up to 2.7 and repeat troponins came back to 2.4. Physical exam revealed blood pressure 110/70. S1-S2 heard normally. Short systolic murmur is audible. Lungs reveal decent bilateral air entry assisted by the ventilator. Abdomen and lower extremity exam is unchanged. Central nervous system exam was not performed. I will review the echocardiogram when performed. We will continue the subcu heparin for the time being. The clinical picture suggests oxygen mismatch type picture for troponin elevation, although given her risk factor she is quite likely to have CAD as well. There is no evidence suggest acute ischemic syndrome. We will continue to follow. I am unsure of her neurological status. We will see how she does. MMODL / IJN: [id number] /
--- NOTE | 2018-09-07 10:37 | ECHOF ---
Referral Reason:Elevated trop MEASUREMENTS -------- HEIGHT: 172.7 cm WEIGHT: 120.2 kg BP: 117/59 RVIDd: 3.3 cm (< 3.3) IVSd: 1.3 cm (0.6 - 1.1) LVIDd: 3.5 cm (3.9 - 5.3) LVPWd: 1.0 cm (0.6 - 1.1) IVSs: 1.8 cm LVIDs: 2.2 cm LVPWs: 1.4 cm LA Diam: 3.0 cm (2.7 - 3.8) LAESV Index (A-L): 12.82 ml/m Ao Diam: 3.2 cm (2.0 - 3.7) AV Cusp: 2.3 cm (1.5 - 2.6) MV EXCURSION: 13.189 mm (> 18.000) MV EF SLOPE: 42 mm/s (70 - 150) EPSS: 0.3 cm MV E Kevin: 1.03 m/s MV DecT: 342 ms MV A Kevin: 1.07 m/s MV E/A Ratio: 0.96 AV maxP.21 mmHg AV meanP.69 mmHg FINDINGS -------- Sinus rhythm. This was a technically difficult study with suboptimal parasternal views. The left ventricular size is normal. There is mild concentric left ventricular hypertrophy. Overa ll left ventricular systolic function is normal with, an EF between 55 - 60 %. The diastolic fillin g pattern is normal for the age of the patient 12.87. The right ventricle is mildly enlarged. Normal LA size by volume 22+/-6 ml/m2. The right atrial size is normal. Aortic valve is trileaflet and is mildly thickened. Mild mitral annular calcification present. Mild mitral regurgitation is present. The tricuspid valve appears structurally normal. Mild tricuspid regurgitation present. The pulmonic valve was not well visualized. There is no pulmonic regurgitation present. The aortic root size is normal. The inferior vena cava is mildly dilated. There is no pericardial effusion. CONCLUSIONS -------- 1. Sinus rhythm. 2. This was a technically difficult study with suboptimal parasternal views. 3. The left ventricular size is normal. 4. There is mild concentric left ventricular hypertrophy. 5. Overall left ventricular systolic function is normal with, an EF between 55 - 60 %. 6. The right ventricle is mildly enlarged. 7. Normal LA size by volume 22+/-6 ml/m2. 8. Aortic valve is trileaflet and is mildly thickened. 9. Mild mitral annular calcification present. 10. Mild mitral regurgitation is present. 11. The tricuspid valve appears structurally normal. 12. Mild tricuspid regurgitation present. 13. The pulmonic valve was not well visualized. 14. The aortic root size is normal. 15. The inferior vena cava is mildly dilated. 16. There is no pericardial effusion. PRODUCTION CHECKER: Christine Deng RDCS
[2018-09-07 11:28] LABS: Glucose,Whole Blood 240 mg/dL (75-99)
[2018-09-07 12:07] LABS: Glucose,Whole Blood 220 mg/dL (75-99)
[2018-09-07 13:07] LABS: Glucose,Whole Blood 206 mg/dL (75-99)
[2018-09-07 14:04] LABS: Glucose,Whole Blood 185 mg/dL (75-99)
[2018-09-07 15:17] LABS: Glucose,Whole Blood 158 mg/dL (75-99)
[2018-09-07] MEDS: D5-0.45% NACL WITH KCL 20MEQ/L 1,000 ML IV SCH (16:10)
[2018-09-07] MEDS: NOREPINEPHRINE 32 MG in SODIUM CHLORIDE 0.9% 218 ML IV SCH (16:11)
[2018-09-07 16:15] LABS: Glucose,Whole Blood 146 mg/dL (75-99)
[2018-09-07 18:03] LABS: Glucose,Whole Blood 181 mg/dL (75-99)
--- NOTE | 2018-09-07 18:05 | P.PN ---
Subjective Progress Note Date: 09/07/18 This is a 68-year-old female patient remains intubated on mechanical ventilator. The patient presented to the hospital for bilateral pneumonia, DKA, severe metabolic acidosis, acute kidney injury and cyanosis. The patient this morning he remains sedated and calm and comfortable. The patient remains on Diprivan and the patient is synchronous with the mechanical ventilator. Diprivan is running at 50 g per KG per minute. The patient remains on assist control mode of ventilation with a tidal volume of 400 with an FiO2 of 40% and PEEP of 5 mg of 26.. The blood gases from today showed a pH of 7.39 with a pCO2 of 36 and pO2 118 on FiO2 of 50%. The patient has recovered from her DKA. Blood sugars under better control. The anion gap metabolic acidosis is recovered and normalized. White cell count is improving. Acute kidney injury is also improving and the creatinine is down to 1.9. The patient is currently on IV Zosyn as an empiric antibiotic coverage. Blood cultures been negative. Pre ssors are still in the form of norepinephrine infusion at running at 20 g per KG per minute. The patient is on D5 half-normal saline at the rate of 75 mL an hour. Insulin drip was restarted. ICU protocol to control the blood sugar. Patient is on DVT and GI prophylaxis. Family is at the bedside. Echocardiogram was done and the patient is a preserved LV function without any significant abnormalities noted. The chest x-ray from today shows. Is in a good location. The patient has a left subclavian triple-lumen catheter in place. There is some patchy retrocardiac opacity seen. Otherwise no other significant abnormalities noted. Objective - Vital Signs Vital signs: Vital Signs Temp 98.7 F 09/07/18 16:00 Pulse 87 09/07/18 17:00 Resp 26 H 09/07/18 17:00 BP 120/66 09/07/18 08:30 Pulse Ox 100 09/07/18 17:00 Intake & Output 09/06/18 09/07/18 09/07/18 18:59 06:59 18:59 Intake Total 2259.626 1421.253 0853.543 Output Total 073 430 9555 Balance 1774.626 255.198 45.543 Weight 120.7 kg 120.4 kg Intake: IV 1000 550 850 0.9 NACL 1000 D5-0.45% NaCl with KCl 550 650 20Meq/l 1,000 ml @ 75 mls /hr IV .[id number] [facility] Rx#: [id number] Piperacillin-Tazobactam 3 200 .375 gm In Sodium Chloride 0.9% 100 ml @ 25 mls/hr IVPB Q8HR [facility] Rx# :[id number] Intake, IV Titration 1259.626 630.198 430.543 Amount D5-0.45% NaCl with KCl 650 50 20Meq/l 1,000 ml @ 75 mls /hr IV .[id number] [facility] Rx#: [id number] Insulin Regular 100 unit 125.700 In Sodium Chloride 0.9% 100 ml @ 0.1 UNITS/KG/HR 12.12 mls/hr IV .Q8H20M [facility] Rx#:[id number] Insulin Regular 100 unit 20.857 In Sodium Chloride 0.9% 100 ml @ Per Protocol IV .Q0M [facility] Rx#:[id number] Norepinephrine 32 mg In 110.627 84 109.874 Sodium Chloride 0.9% 218 ml @ 0.05 MCG/KG/MIN 2. 625 mls/hr IV .Q24H [facility] Rx#:[id number] Piperacillin-Tazobactam 3 100 .375 gm In Sodium Chloride 0.9% 100 ml @ 25 mls/hr IVPB Q12H [facility] Rx# :[id number] Potassium Chloride 20 meq 100 In Water For Injection 1 100ml.bag @ 50 mls/hr IVPB ONCE ONE Rx#: [id number] Propofol 1,000 mg In 273.299 396.198 299.812 Empty Bag 1 bag @ Titrate IV .Q0M [facility] Rx#: [id number] Output: Urine 320 [id number] 6741 Other: Voiding Method Indwelling Catheter Indwelling Catheter Indwelling Catheter ABP, PAP, CO, CI - Last Documented Arterial Blood Pressure 126/57 - Exam Gen. appearance intubated, comfortable likely distress sedated and the patient is a pleasant mechanical ventilator. Head exam was generally normal. There was no scleral icterus or corneal arcus. Mucous membranes were moist. Neck was supple and without jugular venous distension, thyromegaly, or carotid bruits. Carotids were easily palpable bilaterally. There was no adenopathy. Orogastric and orotracheal tube are both in place. Lungs were clear to auscultation and percussion, and with normal diaphragmatic excursion. No wheezes or rales were noted. Cardiac exam revealed the PMI to be normally situated and sized. The rhythm was regular and no extrasystoles were noted during several minutes of auscultation. The first and second heart sounds were normal and physiologic splitting of the second heart sound was noted. There were no murmurs, rubs, clicks, or gallops. Abdominal exam revealed normal bowel sounds. The abdomen was soft, non-tender, and without masses, organomegaly, or appreciable enlargement of the abdominal aorta. Examination of the extremities revealed easily palpable radial, femoral and pedal pulses. There was no cyanosis, clubbing or edema. Examination of the skin revealed no evidence of significant rashes, suspicious appearing nevi or other concerning lesions. The patient triple-lumen catheter in the left IJ Neurologically the patient is sedated and patient's calm and comfortable. No focal neurological deficit. Pupils are equal and reactive to light and the patient will be given a sedation holiday. Psych evaluation cannot be done as the patient sedated for now.\ - Labs CBC & Chem 7: 09/07/18 04:25 09/07/18 04:25 Labs: Abnormal Lab Results - Last 24 Hours (Table) 09/06/18 09/06/18 09/07/18 Range/Units 19:59 23:45 03:47 WBC (3.8-10.6) k/uL Plt Count (150-450) k/uL Neutrophils # (1.3-7.7) k/uL Monocytes # (0-1.0) k/uL ABG pO2 (83-108) mmHg ABG O2 Saturation (94-97) % Carbon Dioxide (22-30) mmol/L BUN (7-17) mg/dL Creatinine (0.52-1.04) mg/dL Glucose (74-99) mg/dL POC Glucose (mg/dL) 317 H 322 H 310 H (75-99) mg/dL 09/07/18 09/07/18 09/07/18 Range/Units 04:25 04:25 04:25 WBC 23.0 H (3.8-10.6) k/uL Plt Count 145 L (150-450) k/uL Neutrophils # 19.7 H (1.3-7.7) k/uL Monocytes # 1.3 H (0-1.0) k/uL ABG pO2 118 H (83-108) mmHg ABG O2 Saturation 99.1 H (94-97) % Carbon Dioxide 21 L (22-30) mmol/L BUN 53 H (7-17) mg/dL Creatinine 1.90 H (0.52-1.04) mg/dL Glucose 363 H (74-99) mg/dL POC Glucose (mg/dL) (75-99) mg/dL 09/07/18 09/07/18 09/07/18 Range/Units 07:10 11:26 12:05 WBC (3.8-10.6) k/uL Plt Count (150-450) k/uL Neutrophils # (1.3-7.7) k/uL Monocytes # (0-1.0) k/uL ABG pO2 (83-108) mmHg ABG O2 Saturation (94-97) % Carbon Dioxide (22-30) mmol/L BUN (7-17) mg/dL Creatinine (0.52-1.04) mg/dL Glucose (74-99) mg/dL POC Glucose (mg/dL) 279 H 240 H 220 H (75-99) mg/dL 09/07/18 09/07/18 09/07/18 Range/Units 13:04 14:02 15:16 WBC (3.8-10.6) k/uL Plt Count (150-450) k/uL Neutrophils # (1.3-7.7) k/uL Monocytes # (0-1.0) k/uL ABG pO2 (83-108) mmHg ABG O2 Saturation (94-97) % Carbon Dioxide (22-30) mmol/L BUN (7-17) mg/dL Creatinine (0.52-1.04) mg/dL Glucose (74-99) mg/dL POC Glucose (mg/dL) 206 H 185 H 158 H (75-99) mg/dL 09/07/18 Range/Units 16:13 WBC (3.8-10.6) k/uL Plt Count (150-450) k/uL Neutrophils # (1.3-7.7) k/uL Monocytes # (0-1.0) k/uL ABG pO2 (83-108) mmHg ABG O2 Saturation (94-97) % Carbon Dioxide (22-30) mmol/L BUN (7-17) mg/dL Creatinine (0.52-1.04) mg/dL Glucose (74-99) mg/dL POC Glucose (mg/dL) 146 H (75-99) mg/dL Microbiology - Last 24 Hours (Table) 09/05/18 23:55 Gram Stain - Preliminary Sputum Sputum Culture - Preliminary Ale albicans 09/05/18 17:45 Blood Culture - Preliminary Blood No Growth after 24 hours 09/05/18 17:35 Blood Culture - Preliminary Blood No Growth after 24 hours 09/05/18 17:06 Urine Culture - Final Urine,Catheterized Assessment and Plan Plan: Assessment 1 acute septic shock likely secondary to underlying bilateral pneumonia right more than left currently on Zosyn. The patient presented with basilar consolidation with small bilateral pleural effusion right more than left, possible aspiration. 2 acute DKA with severe anion gap metabolic acidosis, recovered and the patient's anion gap closed currently on insulin drip along with D5 half-normal saline at the rate of 75 mL an hour 3 hypotension secondary to sepsis the patient is currently pressor dependent. 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 Underlying coronary artery disease needs to be considered, consider acute non-STEMI.. Nevertheless, this troponin leak could be related to above-mentioned events and hypotension. Plan Continue D5 half-normal sed rate of 75 mL an hour and continue the insulin drip per protocol and monitor the blood sugars. IV Zosyn. Sputum Gram stain and culture. Blood culture. Wean off pressors if possible to maintain a mean artery pressure above 65. Echocardiogram results were noted. Monitor renal function. Monitor white count. Sedation holiday and assess underlying neurologic status. Continue vent support. Continue Synthroid. Initiate tube feeds at a lower rate of 10 mL an hour of Glucerna or enterofeeding of choice per dietary. DVT and GI prophylaxis. Cardiology on the case. We'll continue to follow. A discussion with the patient's daughters at the bedside. Explained to them the patient's condition Note that he for any further weaning at this point as patient with underlying hypertension. We'll continue to follow make further recommendations based on her progress. Critically care evaluation was done more than 30 minutes. Time with Patient: Greater than 30
[2018-09-07] MEDS ORDERED: SODIUM CHLORIDE 0.9% 2,000 ML IV ONE (18:07)
[2018-09-07 19:02] LABS: Glucose,Whole Blood 168 mg/dL (75-99)
[2018-09-07 20:11] LABS: Glucose,Whole Blood 154 mg/dL (75-99)
[2018-09-07 21:16] LABS: Glucose,Whole Blood 140 mg/dL (75-99)
[2018-09-07 22:02] LABS: Glucose,Whole Blood 170 mg/dL (75-99)
--- NOTE | 2018-09-07 22:21 | P.PN ---
Subjective Progress Note Date: 09/07/18 This a pleasant 68-year-old white female who is currently intubated and on paralyzing agent. She is a ICU where saw her today her vital signs are stable her blood pressure is being maintained on pressors. She is currently not able to be weaned off ventilator. Objective - Vital Signs Vital signs: Vital Signs Temp 98.1 F 09/07/18 20:00 Pulse 82 09/07/18 22:00 Resp 26 H 09/07/18 22:00 BP 140/78 09/07/18 22:00 Pulse Ox 100 09/07/18 22:00 Intake & Output 09/07/18 09/07/18 09/08/18 06:59 18:59 06:59 Intake Total 3519.637 2597.930 2519.558 Output Total 925 1485 825 Balance 255.198 -35.070 1694.558 Weight 120.4 kg Intake: IV 550 1000 2300 D5-0.45% NaCl with KCl 550 800 300 20Meq/l 1,000 ml @ 75 mls /hr IV .[id number] [facility] Rx#: [id number] Piperacillin-Tazobactam 3 200 .375 gm In Sodium Chloride 0.9% 100 ml @ 25 mls/hr IVPB Q8HR [facility] Rx# :[id number] Sodium Chloride 0.9% 2, 2000 000 ml @ 999 mls/hr IV . Q2H1M [facility] Rx#:[id number] Intake, IV Titration 630.198 449.930 219.558 Amount D5-0.45% NaCl with KCl 50 20Meq/l 1,000 ml @ 75 mls /hr IV .[id number] [facility] Rx#: [id number] Insulin Regular 100 unit 23.584 10.370 In Sodium Chloride 0.9% 100 ml @ Per Protocol IV .Q0M [facility] Rx#:[id number] Norepinephrine 32 mg In 84 126.534 9.188 Sodium Chloride 0.9% 218 ml @ 0.05 MCG/KG/MIN 2. 625 mls/hr IV .Q24H [facility] Rx#:[id number] Piperacillin-Tazobactam 3 100 .375 gm In Sodium Chloride 0.9% 100 ml @ 25 mls/hr IVPB Q12H [facility] Rx# :[id number] Piperacillin-Tazobactam 3 100 .375 gm In Sodium Chloride 0.9% 100 ml @ 25 mls/hr IVPB Q8HR [facility] Rx# :[id number] Propofol 1,000 mg In 396.198 299.812 100 Empty Bag 1 bag @ Titrate IV .Q0M [facility] Rx#: [id number] Output: Urine 925 1485 825 Other: Voiding Method Indwelling Catheter Indwelling Catheter Indwelling Catheter ABP, PAP, CO, CI - Last Documented Arterial Blood Pressure 126/56 - Exam PHYSICAL EXAMINATION: Patient is currently sedated and intubated. HEENT: Normocephalic. Neck is supple. Pupils reactive. Nostrils clear. Oral cavity is moist. Ears reveal no drainage. Neck reveals no JVD, carotid bruits, or thyromegaly. CHEST EXAMINATION: Trachea is central. Endotracheal tube in place. Symmetrical expansion. Bilateral diffuse rhonchi/coarse breath sounds. CARDIAC: Normal S1, S2 with no gallops. No murmurs ABDOMEN: Soft. Bowel sounds present. No organomegaly. No abdominal bruits. Extremities: reveal some pretibial edema bilateral. No clubbing or cyanosis feet with deformities and evidence of fungal nails Neurologically . Currently sedated. No gross focal deficits noted Skin: No rash or skin lesions. Psychiatric: Could not be assessed at this time. Musculoskeletal: No joint swelling or deformity. - Labs CBC & Chem 7: 09/07/18 04:25 09/07/18 04:25 Labs: Abnormal Lab Results - Last 24 Hours (Table) 09/06/18 09/07/18 09/07/18 Range/Units 23:45 03:47 04:25 WBC 23.0 H (3.8-10.6) k/uL Plt Count 145 L (150-450) k/uL Neutrophils # 19.7 H (1.3-7.7) k/uL Monocytes # 1.3 H (0-1.0) k/uL ABG pO2 (83-108) mmHg ABG O2 Saturation (94-97) % Carbon Dioxide (22-30) mmol/L BUN (7-17) mg/dL Creatinine (0.52-1.04) mg/dL Glucose (74-99) mg/dL POC Glucose (mg/dL) 322 H 310 H (75-99) mg/dL 09/07/18 09/07/18 09/07/18 Range/Units 04:25 04:25 07:10 WBC (3.8-10.6) k/uL Plt Count (150-450) k/uL Neutrophils # (1.3-7.7) k/uL Monocytes # (0-1.0) k/uL ABG pO2 118 H (83-108) mmHg ABG O2 Saturation 99.1 H (94-97) % Carbon Dioxide 21 L (22-30) mmol/L BUN 53 H (7-17) mg/dL Creatinine 1.90 H (0.52-1.04) mg/dL Glucose 363 H (74-99) mg/dL POC Glucose (mg/dL) 279 H (75-99) mg/dL 09/07/18 09/07/18 09/07/18 Range/Units 11:26 12:05 13:04 WBC (3.8-10.6) k/uL Plt Count (150-450) k/uL Neutrophils # (1.3-7.7) k/uL Monocytes # (0-1.0) k/uL ABG pO2 (83-108) mmHg ABG O2 Saturation (94-97) % Carbon Dioxide (22-30) mmol/L BUN (7-17) mg/dL Creatinine (0.52-1.04) mg/dL Glucose (74-99) mg/dL POC Glucose (mg/dL) 240 H 220 H 206 H (75-99) mg/dL 09/07/18 09/07/18 09/07/18 Range/Units 14:02 15:16 16:13 WBC (3.8-10.6) k/uL Plt Count (150-450) k/uL Neutrophils # (1.3-7.7) k/uL Monocytes # (0-1.0) k/uL ABG pO2 (83-108) mmHg ABG O2 Saturation (94-97) % Carbon Dioxide (22-30) mmol/L BUN (7-17) mg/dL Creatinine (0.52-1.04) mg/dL Glucose (74-99) mg/dL POC Glucose (mg/dL) 185 H 158 H 146 H (75-99) mg/dL 09/07/18 09/07/18 09/07/18 Range/Units 18:01 18:59 20:09 WBC (3.8-10.6) k/uL Plt Count (150-450) k/uL Neutrophils # (1.3-7.7) k/uL Monocytes # (0-1.0) k/uL ABG pO2 (83-108) mmHg ABG O2 Saturation (94-97) % Carbon Dioxide (22-30) mmol/L BUN (7-17) mg/dL Creatinine (0.52-1.04) mg/dL Glucose (74-99) mg/dL POC Glucose (mg/dL) 181 H 168 H 154 H (75-99) mg/dL 09/07/18 09/07/18 Range/Units 21:15 22:01 WBC (3.8-10.6) k/uL Plt Count (150-450) k/uL Neutrophils # (1.3-7.7) k/uL Monocytes # (0-1.0) k/uL ABG pO2 (83-108) mmHg ABG O2 Saturation (94-97) % Carbon Dioxide (22-30) mmol/L BUN (7-17) mg/dL Creatinine (0.52-1.04) mg/dL Glucose (74-99) mg/dL POC Glucose (mg/dL) 140 H 170 H (75-99) mg/dL Microbiology - Last 24 Hours (Table) 09/05/18 17:45 Blood Culture - Preliminary Blood No Growth after 48 hours 09/05/18 17:35 Blood Culture - Preliminary Blood No Growth after 48 hours 09/05/18 23:55 Gram Stain - Preliminary Sputum Sputum Culture - Preliminary Ale albicans 09/05/18 17:06 Urine Culture - Final Urine,Catheterized Assessment and Plan (1) Acute respiratory failure with hypoxia Narrative/Plan: Requiring intubation Current Visit: Yes Status: Acute Code(s): J96.01 - ACUTE RESPIRATORY FAILURE WITH HYPOXIA SNOMED Code(s): 14461067 (2) Acute renal failure Current Visit: Yes Status: Acute Code(s): N17.9 - ACUTE KIDNEY FAILURE, UNSPECIFIED SNOMED Code(s): 34438642 (3) DKA (diabetic ketoacidoses) Current Visit: Yes Status: Acute Code(s): E13.10 - OTH DIABETES MELLITUS WITH KETOACIDOSIS WITHOUT COMA SNOMED Code(s): 795310500 (4) Hyperkalemia Current Visit: Yes Status: Acute Code(s): E87.5 - HYPERKALEMIA SNOMED Code(s): 63254390 (5) Pneumonia Current Visit: Yes Status: Acute Code(s): J18.9 - PNEUMONIA, UNSPECIFIED ORGANISM SNOMED Code(s): 078631801 (6) Sepsis Current Visit: Yes Status: Acute Code(s): A41.9 - SEPSIS, UNSPECIFIED ORGANISM SNOMED Code(s): 90957178 (7) Secondary diabetes with peripheral neuropathy Current Visit: Yes Status: Acute Code(s): E13.42 - OTH DIABETES MELLITUS WITH DIABETIC POLYNEUROPATHY SNOMED Code(s): 5799363 Plan: Continue cardiopulmonary support. Continue ICU pulmonary critical care management. DVT prophylaxis in place patient continues on pressors for blood pressure support. Continue to follow patient's overall poor prognosis
[2018-09-07 23:06] LABS: Glucose,Whole Blood 206 mg/dL (75-99)
[2018-09-07 23:51] LABS: Glucose,Whole Blood 133 mg/dL (75-99)
[2018-09-08] MEDS: HEPARIN SODIUM,PORCINE 5,000 UNIT/ML 1 ML VIAL SQ SCH ×4 (00:16→23:14)
[2018-09-08 01:06] LABS: Glucose,Whole Blood 132 mg/dL (75-99)
[2018-09-08 02:04] LABS: Glucose,Whole Blood 174 mg/dL (75-99)
[2018-09-08] MEDS: PROPOFOL 1,000 MG in EMPTY BAG 1 BAG IV SCH ×4 (03:15→19:58)
[2018-09-08 03:17] LABS: Glucose,Whole Blood 201 mg/dL (75-99)
[2018-09-08] MEDS: IPRATROPIUM-ALBUTEROL 3 ML NEB INHALATION SCH ×6 (03:22→23:23)
[2018-09-08 04:14] LABS: Glucose,Whole Blood 171 mg/dL (75-99)
[2018-09-08 04:45] LABS: Basophils % (A) 0 %; Eosinophils # (A) 0.2 k/uL (0-0.7); Eosinophils % (A) 1 %; HCT 37.2 % (34.0-46.0); HGB 12.3 gm/dL (11.4-16.0); Lymphocytes # (A) 1.2 k/uL (1.0-4.8); Lymphocytes % (A) 11 %; MCH 32.1 pg (25.0-35.0); MCV 97.4 fL (80.0-100.0); Mean Platelet Volume 8.6; Monocytes # (A) 0.5 k/uL (0-1.0); Monocytes % (A) 4 %; Neutrophils # (A) 8.9 k/uL (1.3-7.7); Neutrophils % (A) 82 %; Platelet Count 103 k/uL (150-450); RBC 3.82 m/uL (3.80-5.40); RDW 14.1 % (11.5-15.5); WBC 10.8 k/uL (3.8-10.6)
[2018-09-08 04:48] LABS: ABG Base Excess -4.2 mmol/L; ABG HCO3 21 mmol/L (21-25); ABG Oxygen Saturation 98.2 % (94-97); ABG PCO2 38 mmHg (35-45); ABG PH 7.36 (7.35-7.45); ABG PO2 126 mmHg (83-108); ABG TCO2 22 mmol/L (19-24)
[2018-09-08 04:52] LABS: Glucose,Whole Blood 174 mg/dL (75-99)
[2018-09-08] MEDS: D5-0.45% NACL WITH KCL 20MEQ/L 1,000 ML IV SCH ×2 (04:52→18:18)
[2018-09-08 04:54] LABS: Partial Thromboplastin Time 25.2 sec (22.0-30.0); Prothrombin Time 10.7 sec (9.0-12.0)
[2018-09-08 04:56] LABS: Calcium 8.3 mg/dL (8.4-10.2); Magnesium 1.9 mg/dL (1.6-2.3); Phosphorus 1.7 mg/dL (2.5-4.5); Potassium 3.7 mmol/L (3.5-5.1)
[2018-09-08] MEDS ORDERED: Magnesium Replacement Protocol 1 EACH MISC MISCELLANE PRN (06:04)
[2018-09-08 06:13] LABS: Glucose,Whole Blood 143 mg/dL (75-99)
[2018-09-08] MEDS: MAGNESIUM SULFATE-D5W PMX 1 GM in DEXTROSE/WATER 1 100ML.BAG IVPB SCH ×2 (06:15→07:57)
[2018-09-08] MEDS ORDERED: POTASSIUM BICARBONATE/CIT AC 20 MEQ TABLET.EFF NG-TUBE SCH (07:00)
[2018-09-08 07:05] LABS: Glucose,Whole Blood 126 mg/dL (75-99)
[2018-09-08] MEDS: PIPERACILLIN-TAZOBACTAM 3.375 GM in SODIUM CHLORIDE 0.9% 100 ML IVPB SCH ×3 (07:57→23:14)
[2018-09-08] MEDS: CHLORHEXIDINE GLUCONATE 15 ML CUP MUCOUS MEM SCH ×2 (07:57→19:58)
[2018-09-08] MEDS: LEVOTHYROXINE IVP 100 MCG/5 ML VIAL IV SCH (07:58)
[2018-09-08] MEDS: PANTOPRAZOLE 40 MG/10 ML VIAL IV SCH (07:59)
--- NOTE | 2018-09-08 07:59 | XR ---
EXAMINATION TYPE: XR chest 1V portable DATE OF EXAM: 09/08/2018 COMPARISON: 09/07/2018 HISTORY: Endotracheal tube placement. TECHNIQUE: Single frontal view of the chest is obtained. FINDINGS: There is satisfactory placement of the endotracheal tube however there is suboptimal place ment of the enteric tube that should again be advanced approximately 5 cm for optimal placement. The left central venous catheter again terminates in the right atrium. No pneumothorax is seen. Strand-li ke right basilar atelectasis is present. Strand-like retrocardiac opacity also likely represents atel ectasis. No focal consolidation or pleural effusion. IMPRESSION: 1. Suboptimal placement of the enteric tube that should be advanced approximately [address] acement. 2. Subclavian left central venous catheter again terminates in the right atrium. 3. Minimal bibasilar subsegmental atelectasis.
[2018-09-08 08:09] LABS: Glucose,Whole Blood 179 mg/dL (75-99)
[2018-09-08 09:08] LABS: Glucose,Whole Blood 157 mg/dL (75-99)
[2018-09-08] MEDS ORDERED: SODIUM CHLORIDE 0.9% 2,000 ML IV ONE (09:23)
[2018-09-08] MEDS: HYDROCORTISONE SUCCINATE 100 MG/2 ML VIAL IV SCH ×3 (09:56→23:14)
[2018-09-08] MEDS: SODIUM CHLORIDE 0.9% 50 ML with VASOPRESSIN 20 UNIT IVPB SCH ×4 (09:57→21:13)
[2018-09-08 10:22] LABS: Glucose,Whole Blood 191 mg/dL (75-99)
--- NOTE | 2018-09-08 10:35 | PN ---
PROGRESS NOTE Mrs. Norwood is a lady who came in, found unresponsive for several hours. She was in DKA. Her DKA has resolved. She is doing better overall, but she is still on a Levophed about 13 mcg or so. She is making some urine. She is still on a ventilator, weaning efforts have not started. Ejection fraction is well preserved. There was a troponin elevation, but this does not suggest any acute myocardial injury, probably this was a more or less of a type 2 myocardial infarction with oxygen mismatch. She is maintaining sinus rhythm. S1-S2 heard normally, short systolic murmur noted. Lungs reveal diminished air entry. Abdomen is soft. Rest of physical examination is unchanged. Patient remains on a ventilator, weaning efforts as per Dr. Russell. Cardiac-shultz no intervention. Same medications. Overall prognosis remains guarded. MMODL / IJN: [id number] /
[2018-09-08 11:20] LABS: Glucose,Whole Blood 172 mg/dL (75-99)
[2018-09-08 12:17] LABS: Glucose,Whole Blood 163 mg/dL (75-99)
[2018-09-08 13:01] LABS: Glucose,Whole Blood 173 mg/dL (75-99)
[2018-09-08] MEDS: INSULIN REGULAR 100 UNIT in SODIUM CHLORIDE 0.9% 100 ML IV SCH (14:20)
[2018-09-08 15:02] LABS: Glucose,Whole Blood 184 mg/dL (75-99)
[2018-09-08 16:09] LABS: Glucose,Whole Blood 193 mg/dL (75-99)
--- NOTE | 2018-09-08 17:35 | P.PN ---
Subjective Progress Note Date: 09/08/18 This is a 68-year-old female patient remains intubated on mechanical ventilator. The patient presented to the hospital for bilateral pneumonia, DKA, severe metabolic acidosis, acute kidney injury and cyanosis. The patient this morning he remains sedated and calm and comfortable. The patient remains on Diprivan and the patient is synchronous with the mechanical ventilator. Diprivan is running at 50 g per KG per minute. The patient remains on assist control mode of ventilation with a tidal volume of 400 with an FiO2 of 40% and PEEP of 5 mg of 26.. The blood gases from today showed a pH of 7.39 with a pCO2 of 36 and pO2 118 on FiO2 of 50%. The patient has recovered from her DKA. Blood sugars under better control. The anion gap metabolic acidosis is recovered and normalized. White cell count is improving. Acute kidney injury is also improving and the creatinine is down to 1.9. The patient is currently on IV Zosyn as an empiric antibiotic coverage. Blood cultures been negative. Pre ssors are still in the form of norepinephrine infusion at running at 20 g per KG per minute. The patient is on D5 half-normal saline at the rate of 75 mL an hour. Insulin drip was restarted. ICU protocol to control the blood sugar. Patient is on DVT and GI prophylaxis. Family is at the bedside. Echocardiogram was done and the patient is a preserved LV function without any significant abnormalities noted. The chest x-ray from today shows. Is in a good location. The patient has a left subclavian triple-lumen catheter in place. There is some patchy retrocardiac opacity seen. Otherwise no other significant abnormalities noted. On today's evaluation of 09/08/2018 I'm seeing this patient for a follow-up. The patient is intubated on a mechanical ventilator. The patient remains on a same vent setting and the patient is on a assist-control mode with a tidal volume of 400 and FiO2 of 40% with a PEEP of 8 and a rate of 26. The blood gases from this morning showed a pH of 7.36 with a pCO2 of 38 and pO2 126. Based on this, I lowered the PEEP down to 5. Chest x-ray shows some limited bibasilar pulmonary infiltrates. There is a left IJ central venous catheter tip being in the right atrium. The patient is sedated with Diprivan earlier this morning at a rate of 50 mg per KG per minute. Earlier this was the patient was still hypotensive on 15-20 mics of levo fed per minutes. The patient was suspected to further IV fluids. She was given 2 L of bolus as the patient's CVP was low at around 6. Nevertheless, despite this, she continued to require pressors. CVP remains low. Echo showed a preserved LV function and there is no valvular abnormalities. The patient will be given 2 additional liters of bolus IV fluids today. The patient was started on vasopressin. Serum cortisol level was 14. Adrenal insufficiency felt to be less likely. We'll supplement this patient with stress dose hydrocortisone based on the ongoing hypotension and hemodynamic instability. Nevertheless, despite all this, the patient's anion gap is closed and the patient is on insulin drip for blood sugar control. The white cell count is down to 10.8. Renal function continues to improve and the creatinine is down to 1.01. The patient's blood cultures of been negative. The patient remains on IV Zosyn as an empiric antibiotic coverage. After stabilizing the hemodynamics, intensive patient some sedation holiday and taken off the Diprivan. He she remains nothing by mouth for now. IV fluids in the form of D5 half-normal saline at the rate of 75 mL an hour. Objective - Vital Signs Vital signs: Vital Signs Temp 97.8 F 09/08/18 16:00 Pulse 56 L 09/08/18 17:00 Resp 26 H 09/08/18 17:00 BP 143/81 09/08/18 07:00 Pulse Ox 95 09/08/18 17:00 Intake & Output 09/07/18 09/08/18 09/08/18 18:59 06:59 18:59 Intake Total 1255.470 6139.119 3081.059 Output Total 1485 2025 1410 Balance -35.070 2871.099 9795.059 Weight 122.3 kg 122.3 kg Intake: IV 1000 2925 2850 D5-0.45% NaCl with KCl 800 900 750 20Meq/l 1,000 ml @ 75 mls /hr IV .[id number] [facility] Rx#: [id number] Piperacillin-Tazobactam 3 200 25 100 .375 gm In Sodium Chloride 0.9% 100 ml @ 25 mls/hr IVPB Q8HR [facility] Rx# :[id number] Sodium Chloride 0.9% 2, 2000 000 ml @ 999 mls/hr IV . Q2H1M [facility] Rx#:[id number] Sodium Chloride 0.9% 2, 2000 000 ml @ 999 mls/hr IV . Q2H1M [facility] Rx#:[id number] Intake, IV Titration 449.930 785.119 231.059 Amount Insulin Regular 100 unit 23.584 31.740 33.247 In Sodium Chloride 0.9% 100 ml @ Per Protocol IV .Q0M [facility] Rx#:[id number] Magnesium Sulfate-D5w Pmx 100 1 gm In Dextrose/Water 1 100ml.bag @ 100 mls/hr IVPB Q1H [facility] Rx#: [id number] Norepinephrine 32 mg In 126.534 81.577 36.540 Sodium Chloride 0.9% 218 ml @ 0.05 MCG/KG/MIN 2. 625 mls/hr IV .Q24H [facility] Rx#:[id number] Piperacillin-Tazobactam 3 175 .375 gm In Sodium Chloride 0.9% 100 ml @ 25 mls/hr IVPB Q8HR [facility] Rx# :[id number] Propofol 1,000 mg In 299.812 396.802 161.272 Empty Bag 1 bag @ Titrate IV .Q0M [facility] Rx#: [id number] Output: Urine 1485 2025 1410 Other: Voiding Method Indwelling Catheter Indwelling Catheter Indwelling Catheter ABP, PAP, CO, CI - Last Documented Arterial Blood Pressure 115/49 - Exam Gen. appearance intubated, comfortable likely distress sedated and the patient is a pleasant mechanical ventilator. Head exam was generally normal. There was no scleral icterus or corneal arcus. Mucous membranes were moist. Neck was supple and without jugular venous distension, thyromegaly, or carotid bruits. Carotids were easily palpable bilaterally. There was no adenopathy. Orogastric and orotracheal tube are both in place. Lungs were clear to auscultation and percussion, and with normal diaphragmatic excursion. No wheezes or rales were noted. Cardiac exam revealed the PMI to be normally situated and sized. The rhythm was regular and no extrasystoles were noted during several minutes of auscultation. The first and second heart sounds were normal and physiologic splitting of the second heart sound was noted. There were no murmurs, rubs, clicks, or gallops. Abdominal exam revealed normal bowel sounds. The abdomen was soft, non-tender, and without masses, organomegaly, or appreciable enlargement of the abdominal aorta. Examination of the extremities revealed easily palpable radial, femoral and pedal pulses. There was no cyanosis, clubbing or edema. Examination of the skin revealed no evidence of significant rashes, suspicious appearing nevi or other concerning lesions. The patient triple-lumen catheter in the left IJ Neurologically the patient is sedated and patient's calm and comfortable. No focal neurological deficit. Pupils are equal and reactive to light and the patient will be given a sedation holiday. Psych evaluation cannot be done as the patient sedated for now.\ - Labs CBC & Chem 7: 09/08/18 04:32 09/08/18 04:32 Labs: Abnormal Lab Results - Last 24 Hours (Table) 09/07/18 09/07/18 09/07/18 Range/Units 18:01 18:59 20:09 WBC (3.8-10.6) k/uL Plt Count (150-450) k/uL Neutrophils # (1.3-7.7) k/uL ABG pO2 (83-108) mmHg ABG O2 Saturation (94-97) % Chloride (98-107) mmol/L Carbon Dioxide (22-30) mmol/L BUN (7-17) mg/dL Glucose (74-99) mg/dL POC Glucose (mg/dL) 181 H 168 H 154 H (75-99) mg/dL Calcium (8.4-10.2) mg/dL Phosphorus (2.5-4.5) mg/dL 09/07/18 09/07/18 09/07/18 Range/Units 21:15 22:01 23:05 WBC (3.8-10.6) k/uL Plt Count (150-450) k/uL Neutrophils # (1.3-7.7) k/uL ABG pO2 (83-108) mmHg ABG O2 Saturation (94-97) % Chloride (98-107) mmol/L Carbon Dioxide (22-30) mmol/L BUN (7-17) mg/dL Glucose (74-99) mg/dL POC Glucose (mg/dL) 140 H 170 H 206 H (75-99) mg/dL Calcium (8.4-10.2) mg/dL Phosphorus (2.5-4.5) mg/dL 09/07/18 09/08/18 09/08/18 Range/Units 23:50 01:04 02:03 WBC (3.8-10.6) k/uL Plt Count (150-450) k/uL Neutrophils # (1.3-7.7) k/uL ABG pO2 (83-108) mmHg ABG O2 Saturation (94-97) % Chloride (98-107) mmol/L Carbon Dioxide (22-30) mmol/L BUN (7-17) mg/dL Glucose (74-99) mg/dL POC Glucose (mg/dL) 133 H 132 H 174 H (75-99) mg/dL Calcium (8.4-10.2) mg/dL Phosphorus (2.5-4.5) mg/dL 09/08/18 09/08/18 09/08/18 Range/Units 03:10 04:13 04:32 WBC 10.8 H (3.8-10.6) k/uL Plt Count 103 L (150-450) k/uL Neutrophils # 8.9 H (1.3-7.7) k/uL ABG pO2 (83-108) mmHg ABG O2 Saturation (94-97) % Chloride (98-107) mmol/L Carbon Dioxide (22-30) mmol/L BUN (7-17) mg/dL Glucose (74-99) mg/dL POC Glucose (mg/dL) 201 H 171 H (75-99) mg/dL Calcium (8.4-10.2) mg/dL Phosphorus (2.5-4.5) mg/dL 09/08/18 09/08/18 09/08/18 Range/Units 04:32 04:46 04:50 WBC (3.8-10.6) k/uL Plt Count (150-450) k/uL Neutrophils # (1.3-7.7) k/uL ABG pO2 126 H (83-108) mmHg ABG O2 Saturation 98.2 H (94-97) % Chloride 115 H (98-107) mmol/L Carbon Dioxide 20 L (22-30) mmol/L BUN 29 H (7-17) mg/dL Glucose 178 H (74-99) mg/dL POC Glucose (mg/dL) 174 H (75-99) mg/dL Calcium 8.3 L (8.4-10.2) mg/dL Phosphorus 1.7 L (2.5-4.5) mg/dL 09/08/18 09/08/18 09/08/18 Range/Units 06:12 07:04 08:08 WBC (3.8-10.6) k/uL Plt Count (150-450) k/uL Neutrophils # (1.3-7.7) k/uL ABG pO2 (83-108) mmHg ABG O2 Saturation (94-97) % Chloride (98-107) mmol/L Carbon Dioxide (22-30) mmol/L BUN (7-17) mg/dL Glucose (74-99) mg/dL POC Glucose (mg/dL) 143 H 126 H 179 H (75-99) mg/dL Calcium (8.4-10.2) mg/dL Phosphorus (2.5-4.5) mg/dL 09/08/18 09/08/18 09/08/18 Range/Units 09:06 10:21 11:18 WBC (3.8-10.6) k/uL Plt Count (150-450) k/uL Neutrophils # (1.3-7.7) k/uL ABG pO2 (83-108) mmHg ABG O2 Saturation (94-97) % Chloride (98-107) mmol/L Carbon Dioxide (22-30) mmol/L BUN (7-17) mg/dL Glucose (74-99) mg/dL POC Glucose (mg/dL) 157 H 191 H 172 H (75-99) mg/dL Calcium (8.4-10.2) mg/dL Phosphorus (2.5-4.5) mg/dL 09/08/18 09/08/18 09/08/18 Range/Units 12:15 12:56 14:56 WBC (3.8-10.6) k/uL Plt Count (150-450) k/uL Neutrophils # (1.3-7.7) k/uL ABG pO2 (83-108) mmHg ABG O2 Saturation (94-97) % Chloride (98-107) mmol/L Carbon Dioxide (22-30) mmol/L BUN (7-17) mg/dL Glucose (74-99) mg/dL POC Glucose (mg/dL) 163 H 173 H 184 H (75-99) mg/dL Calcium (8.4-10.2) mg/dL Phosphorus (2.5-4.5) mg/dL 09/08/18 Range/Units 16:07 WBC (3.8-10.6) k/uL Plt Count (150-450) k/uL Neutrophils # (1.3-7.7) k/uL ABG pO2 (83-108) mmHg ABG O2 Saturation (94-97) % Chloride (98-107) mmol/L Carbon Dioxide (22-30) mmol/L BUN (7-17) mg/dL Glucose (74-99) mg/dL POC Glucose (mg/dL) 193 H (75-99) mg/dL Calcium (8.4-10.2) mg/dL Phosphorus (2.5-4.5) mg/dL Microbiology - Last 24 Hours (Table) 09/05/18 23:55 Gram Stain - Final Sputum Sputum Culture - Final Ale albicans Ale glabrata 09/05/18 17:45 Blood Culture - Preliminary Blood No Growth after 48 hours 09/05/18 17:35 Blood Culture - Preliminary Blood No Growth after 48 hours Assessment and Plan Plan: Assessment 1 acute septic shock likely secondary to underlying bilateral pneumonia right more than left currently on Zosyn. The patient presented with basilar consolidation with small bilateral pleural effusion right more than left, possible aspiration. On today's evaluation, the patient was given a total of 4 L of fluid bolus over the past 24 hours. The patient improved her CVP which is currently up to 7 mmHg. The patient was started on vasopressin physiologic dose 0.03 units an hour and the patient is being weaned off the pressors. Earlier this morning shows a 15 mics of norepinephrine infusion and currently she is down to minimal dose and we intend to discontinue it over the next few hours. The patient is producing adequate amount of urine output. Echocardiogram shows a preserved LV function. The chest x-ray still showing some limited bibasilar pulmonary infiltrates. Urine output is adequate. She is afebrile. Cultures are negative and the patient remains on empiric antibiotic coverage with IV Zosyn. 2 acute DKA with severe anion gap metabolic acidosis, recovered and the patient's anion gap closed currently on insulin drip along with D5 half-normal saline at the rate of 75 mL an hour 3 hypotension secondary to sepsis the patient is currently pressor dependent. Echocardiogram showing a preserved LV function, the hypotension is improving and the patient is currently on stress dose hydrocortisone and vasopressin physiologic dose in addition to norepinephrine infusion. Additional IV fluids was given to resuscitate the patient and bring up her CVP. 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 Underlying coronary artery disease needs to be considered, consider acute non-STEMI.. Nevertheless, this troponin leak could be related to above-mentioned events and hypotension. Plan Continue vasopressin physiologic dose. Continue stress dose hydrocortisone. Continue weaning the norepinephrine infusion , and I intend to wean off the pressors and discontinued over the next few hours. Monitor hemodynamics. Monitor blood pressure. Monitor urine output. White cell count is improved. The patient is afebrile. The patient has no anion gap. Renal function is normalized. Continue IV Zosyn. Sedation holiday. Assessment underlying mental status. Will assess the readiness to wean within next 24-48 hours. Otherwise, no other significant events. The patient will be started on tube feeds today. Titrate insulin drip for tighter blood sugar control. We'll continue to follow make further recommendations based on her progress. Family will be updated on her condition. This is a critically care evaluation that was done more than 30 minutes. Time with Patient: Greater than 30
[2018-09-08] MEDS: NOREPINEPHRINE 32 MG in SODIUM CHLORIDE 0.9% 218 ML IV SCH (17:59)
[2018-09-08 18:08] LABS: Glucose,Whole Blood 149 mg/dL (75-99)
[2018-09-08 19:15] LABS: Glucose,Whole Blood 176 mg/dL (75-99)
[2018-09-08 20:07] LABS: Glucose,Whole Blood 215 mg/dL (75-99)
[2018-09-08 21:10] LABS: Glucose,Whole Blood 218 mg/dL (75-99)
[2018-09-08 22:04] LABS: Glucose,Whole Blood 210 mg/dL (75-99)
--- NOTE | 2018-09-08 22:55 | P.PN ---
Subjective Progress Note Date: 09/08/18 This a pleasant 68-year-old white female who is currently intubated and on paralyzing agent. She is a ICU where saw her today her vital signs are stable her blood pressure is being maintained on pressors. She is currently not able to be weaned off ventilator.patient continues with blood pressure in in the 90s systolic. Objective - Vital Signs Vital signs: Vital Signs Temp 97.7 F 09/08/18 20:00 Pulse 48 L 09/08/18 22:00 Resp 26 H 09/08/18 22:00 BP 93/54 09/08/18 21:00 Pulse Ox 98 09/08/18 22:00 Intake & Output 09/08/18 09/08/18 09/09/18 06:59 18:59 06:59 Intake Total 3710.119 3254.506 446.267 Output Total 2025 1520 150 Balance 5845.595 5713.506 296.267 Weight 122.3 kg 122.3 kg Intake: IV 2925 3000 300 D5-0.45% NaCl with KCl 900 900 300 20Meq/l 1,000 ml @ 75 mls /hr IV .[id number] [facility] Rx#: [id number] Piperacillin-Tazobactam 3 25 100 .375 gm In Sodium Chloride 0.9% 100 ml @ 25 mls/hr IVPB Q8HR [facility] Rx# :[id number] Sodium Chloride 0.9% 2, 2000 000 ml @ 999 mls/hr IV . Q2H1M [facility] Rx#:[id number] Sodium Chloride 0.9% 2, 2000 000 ml @ 999 mls/hr IV . Q2H1M [facility] Rx#:[id number] Intake, IV Titration 785.119 254.506 36.267 Amount Insulin Regular 100 unit 31.740 43.179 20.613 In Sodium Chloride 0.9% 100 ml @ Per Protocol IV .Q0M [facility] Rx#:[id number] Magnesium Sulfate-D5w Pmx 100 1 gm In Dextrose/Water 1 100ml.bag @ 100 mls/hr IVPB Q1H [facility] Rx#: [id number] Norepinephrine 32 mg In 81.577 36.540 0 Sodium Chloride 0.9% 218 ml @ 0.05 MCG/KG/MIN 2. 625 mls/hr IV .Q24H [facility] Rx#:[id number] Piperacillin-Tazobactam 3 175 .375 gm In Sodium Chloride 0.9% 100 ml @ 25 mls/hr IVPB Q8HR [facility] Rx# :[id number] Propofol 1,000 mg In 396.802 174.787 15.654 Empty Bag 1 bag @ Titrate IV .Q0M [facility] Rx#: [id number] Tube Feeding 80 Other 30 Output: Urine 2024 1520 150 Other: Voiding Method Indwelling Catheter Indwelling Catheter Indwelling Catheter ABP, PAP, CO, CI - Last Documented Arterial Blood Pressure 109/50 - Exam PHYSICAL EXAMINATION: Patient is currently sedated and intubated. HEENT: Normocephalic. Neck is supple. Pupils reactive. Nostrils clear. Oral cavity is moist. Ears reveal no drainage. Neck reveals no JVD, carotid bruits, or thyromegaly. CHEST EXAMINATION: Trachea is central. Endotracheal tube in place. Symmetrical expansion. Bilateral diffuse rhonchi/coarse breath sounds. CARDIAC: Normal S1, S2 with no gallops. No murmurs ABDOMEN: Soft. Bowel sounds present. No organomegaly. No abdominal bruits. Extremities: reveal some pretibial edema bilateral. No clubbing or cyanosis feet with deformities and evidence of fungal nails Neurologically . Currently sedated. No gross focal deficits noted Skin: No rash or skin lesions. Psychiatric: Could not be assessed at this time. Musculoskeletal: No joint swelling or deformity. - Labs CBC & Chem 7: 09/08/18 04:32 09/08/18 04:32 Labs: Abnormal Lab Results - Last 24 Hours (Table) 09/07/18 09/07/18 09/08/18 Range/Units 23:05 23:50 01:04 WBC (3.8-10.6) k/uL Plt Count (150-450) k/uL Neutrophils # (1.3-7.7) k/uL ABG pO2 (83-108) mmHg ABG O2 Saturation (94-97) % Chloride (98-107) mmol/L Carbon Dioxide (22-30) mmol/L BUN (7-17) mg/dL Glucose (74-99) mg/dL POC Glucose (mg/dL) 206 H 133 H 132 H (75-99) mg/dL Calcium (8.4-10.2) mg/dL Phosphorus (2.5-4.5) mg/dL 09/08/18 09/08/18 09/08/18 Range/Units 02:03 03:10 04:13 WBC (3.8-10.6) k/uL Plt Count (150-450) k/uL Neutrophils # (1.3-7.7) k/uL ABG pO2 (83-108) mmHg ABG O2 Saturation (94-97) % Chloride (98-107) mmol/L Carbon Dioxide (22-30) mmol/L BUN (7-17) mg/dL Glucose (74-99) mg/dL POC Glucose (mg/dL) 174 H 201 H 171 H (75-99) mg/dL Calcium (8.4-10.2) mg/dL Phosphorus (2.5-4.5) mg/dL 09/08/18 09/08/18 09/08/18 Range/Units 04:32 04:32 04:46 WBC 10.8 H (3.8-10.6) k/uL Plt Count 103 L (150-450) k/uL Neutrophils # 8.9 H (1.3-7.7) k/uL ABG pO2 126 H (83-108) mmHg ABG O2 Saturation 98.2 H (94-97) % Chloride 115 H (98-107) mmol/L Carbon Dioxide 20 L (22-30) mmol/L BUN 29 H (7-17) mg/dL Glucose 178 H (74-99) mg/dL POC Glucose (mg/dL) (75-99) mg/dL Calcium 8.3 L (8.4-10.2) mg/dL Phosphorus 1.7 L (2.5-4.5) mg/dL 09/08/18 09/08/18 09/08/18 Range/Units 04:50 06:12 07:04 WBC (3.8-10.6) k/uL Plt Count (150-450) k/uL Neutrophils # (1.3-7.7) k/uL ABG pO2 (83-108) mmHg ABG O2 Saturation (94-97) % Chloride (98-107) mmol/L Carbon Dioxide (22-30) mmol/L BUN (7-17) mg/dL Glucose (74-99) mg/dL POC Glucose (mg/dL) 174 H 143 H 126 H (75-99) mg/dL Calcium (8.4-10.2) mg/dL Phosphorus (2.5-4.5) mg/dL 09/08/18 09/08/18 09/08/18 Range/Units 08:08 09:06 10:21 WBC (3.8-10.6) k/uL Plt Count (150-450) k/uL Neutrophils # (1.3-7.7) k/uL ABG pO2 (83-108) mmHg ABG O2 Saturation (94-97) % Chloride (98-107) mmol/L Carbon Dioxide (22-30) mmol/L BUN (7-17) mg/dL Glucose (74-99) mg/dL POC Glucose (mg/dL) 179 H 157 H 191 H (75-99) mg/dL Calcium (8.4-10.2) mg/dL Phosphorus (2.5-4.5) mg/dL 09/08/18 09/08/18 09/08/18 Range/Units 11:18 12:15 12:56 WBC (3.8-10.6) k/uL Plt Count (150-450) k/uL Neutrophils # (1.3-7.7) k/uL ABG pO2 (83-108) mmHg ABG O2 Saturation (94-97) % Chloride (98-107) mmol/L Carbon Dioxide (22-30) mmol/L BUN (7-17) mg/dL Glucose (74-99) mg/dL POC Glucose (mg/dL) 172 H 163 H 173 H (75-99) mg/dL Calcium (8.4-10.2) mg/dL Phosphorus (2.5-4.5) mg/dL 09/08/18 09/08/18 09/08/18 Range/Units 14:56 16:07 18:07 WBC (3.8-10.6) k/uL Plt Count (150-450) k/uL Neutrophils # (1.3-7.7) k/uL ABG pO2 (83-108) mmHg ABG O2 Saturation (94-97) % Chloride (98-107) mmol/L Carbon Dioxide (22-30) mmol/L BUN (7-17) mg/dL Glucose (74-99) mg/dL POC Glucose (mg/dL) 184 H 193 H 149 H (75-99) mg/dL Calcium (8.4-10.2) mg/dL Phosphorus (2.5-4.5) mg/dL 09/08/18 09/08/18 09/08/18 Range/Units 19:13 20:05 21:08 WBC (3.8-10.6) k/uL Plt Count (150-450) k/uL Neutrophils # (1.3-7.7) k/uL ABG pO2 (83-108) mmHg ABG O2 Saturation (94-97) % Chloride (98-107) mmol/L Carbon Dioxide (22-30) mmol/L BUN (7-17) mg/dL Glucose (74-99) mg/dL POC Glucose (mg/dL) 176 H 215 H 218 H (75-99) mg/dL Calcium (8.4-10.2) mg/dL Phosphorus (2.5-4.5) mg/dL 09/08/18 Range/Units 22:02 WBC (3.8-10.6) k/uL Plt Count (150-450) k/uL Neutrophils # (1.3-7.7) k/uL ABG pO2 (83-108) mmHg ABG O2 Saturation (94-97) % Chloride (98-107) mmol/L Carbon Dioxide (22-30) mmol/L BUN (7-17) mg/dL Glucose (74-99) mg/dL POC Glucose (mg/dL) 210 H (75-99) mg/dL Calcium (8.4-10.2) mg/dL Phosphorus (2.5-4.5) mg/dL Microbiology - Last 24 Hours (Table) 09/05/18 17:35 Blood Culture - Preliminary Blood No Growth after 72 hours 09/05/18 17:45 Blood Culture - Preliminary Blood No Growth after 72 hours 09/05/18 23:55 Gram Stain - Final Sputum Sputum Culture - Final Ale albicans Ale glabrata Assessment and Plan (1) Acute respiratory failure with hypoxia Narrative/Plan: Requiring intubation Current Visit: Yes Status: Acute Code(s): J96.01 - ACUTE RESPIRATORY FAILURE WITH HYPOXIA SNOMED Code(s): 75021691 (2) Acute renal failure Current Visit: Yes Status: Acute Code(s): N17.9 - ACUTE KIDNEY FAILURE, UNSPECIFIED SNOMED Code(s): 47240145 (3) DKA (diabetic ketoacidoses) Current Visit: Yes Status: Acute Code(s): E13.10 - OTH DIABETES MELLITUS WITH KETOACIDOSIS WITHOUT COMA SNOMED Code(s): 323247467 (4) Hyperkalemia Current Visit: Yes Status: Acute Code(s): E87.5 - HYPERKALEMIA SNOMED Code(s): 99481939 (5) Pneumonia Current Visit: Yes Status: Acute Code(s): J18.9 - PNEUMONIA, UNSPECIFIED ORGANISM SNOMED Code(s): 555604557 (6) Sepsis Current Visit: Yes Status: Acute Code(s): A41.9 - SEPSIS, UNSPECIFIED ORGANISM SNOMED Code(s): 01618866 (7) Secondary diabetes with peripheral neuropathy Current Visit: Yes Status: Acute Code(s): E13.42 - OTH DIABETES MELLITUS WITH DIABETIC POLYNEUROPATHY SNOMED Code(s): 0780768 Plan: Continue cardiopulmonary support. Continue ICU pulmonary critical care managem ent. DVT prophylaxis in place patient continues on pressors for blood pressure support. Continue to follow patient's overall poor prognosis
[2018-09-08 23:02] LABS: Glucose,Whole Blood 195 mg/dL (75-99)
[2018-09-09 00:06] LABS: Glucose,Whole Blood 191 mg/dL (75-99)
[2018-09-09 01:03] LABS: Glucose,Whole Blood 177 mg/dL (75-99)
[2018-09-09 02:00] LABS: Glucose,Whole Blood 173 mg/dL (75-99)
[2018-09-09 03:02] LABS: Glucose,Whole Blood 189 mg/dL (75-99)
[2018-09-09] MEDS: IPRATROPIUM-ALBUTEROL 3 ML NEB INHALATION SCH ×5 (03:08→19:22)
[2018-09-09 04:03] LABS: Glucose,Whole Blood 206 mg/dL (75-99)
[2018-09-09 04:41] LABS: Anion Gap 3 mmol/L; Blood Urea Nitrogen 21 mg/dL (7-17); Calcium 8.1 mg/dL (8.4-10.2); Carbon Dioxide 22 mmol/L (22-30); Chloride 114 mmol/L (98-107); Glucose 201 mg/dL (74-99); Magnesium 1.9 mg/dL (1.6-2.3); Phosphorus 1.8 mg/dL (2.5-4.5); Potassium 4.3 mmol/L (3.5-5.1); Sodium 139 mmol/L (137-145)
[2018-09-09 04:48] LABS: Basophils % (A) 0 %; Eosinophils % (A) 0 %; HCT 36.4 % (34.0-46.0); HGB 11.7 gm/dL (11.4-16.0); Lymphocytes # (A) 0.5 k/uL (1.0-4.8); Lymphocytes % (A) 5 %; MCH 31.3 pg (25.0-35.0); MCHC 32.1 g/dL (31.0-37.0); MCV 97.6 fL (80.0-100.0); Mean Platelet Volume 9.6; Monocytes # (A) 0.3 k/uL (0-1.0); Monocytes % (A) 3 %; Neutrophils # (A) 9.1 k/uL (1.3-7.7); Neutrophils % (A) 91 %; RBC 3.73 m/uL (3.80-5.40)
[2018-09-09 04:49] LABS: Prothrombin Time 10.7 sec (9.0-12.0)
[2018-09-09 05:00] LABS: Glucose,Whole Blood 179 mg/dL (75-99)
[2018-09-09] MEDS ORDERED: Phosphorus Replacement Protoco 1 EACH MISC MISCELLANE PRN (05:23)
[2018-09-09 05:35] LABS: ABG HCO3 22 mmol/L (21-25); ABG Oxygen Saturation 94.6 % (94-97); ABG PCO2 34 mmHg (35-45); ABG PH 7.43 (7.35-7.45); ABG PO2 68 mmHg (83-108); ABG TCO2 23 mmol/L (19-24)
[2018-09-09 05:47] LABS: Platelet Count 73 k/uL (150-450)
[2018-09-09] MEDS: MAGNESIUM SULFATE-D5W PMX 1 GM in DEXTROSE/WATER 1 100ML.BAG IVPB SCH ×2 (05:47→06:55)
[2018-09-09 06:01] LABS: Glucose,Whole Blood 215 mg/dL (75-99)
[2018-09-09] MEDS: SODIUM PHOSPHATE 10 MMOL in SODIUM CHLORIDE 0.9% 100 ML IVPB SCH ×2 (06:30→09:18)
[2018-09-09] MEDS: D5-0.45% NACL WITH KCL 20MEQ/L 1,000 ML IV SCH ×2 (06:30→19:39)
[2018-09-09] MEDS: INSULIN REGULAR 100 UNIT in SODIUM CHLORIDE 0.9% 100 ML IV SCH ×2 (06:32→21:27)
[2018-09-09 07:07] LABS: Glucose,Whole Blood 235 mg/dL (75-99)
[2018-09-09 08:12] LABS: Glucose,Whole Blood 227 mg/dL (75-99)
--- NOTE | 2018-09-09 08:12 | XR ---
EXAMINATION TYPE: XR chest 1V portable DATE OF EXAM: 09/09/2018 COMPARISON: 09/08/2018 HISTORY: SOB, Follow Up FINDINGS: Indwelling tubes and catheters are unchanged. No change in bibasilar opacities. Stable appearance of the cardio-mediastinal structures at this time. Pleural effusion unchanged. IMPRESSION: 1. Stable portable chest. Clinical correlation and follow up until resolution is recommended.
[2018-09-09] MEDS: HYDROCORTISONE SUCCINATE 100 MG/2 ML VIAL IV SCH ×3 (09:19→23:40)
[2018-09-09] MEDS: PIPERACILLIN-TAZOBACTAM 3.375 GM in SODIUM CHLORIDE 0.9% 100 ML IVPB SCH ×3 (09:19→23:39)
[2018-09-09] MEDS: LEVOTHYROXINE IVP 100 MCG/5 ML VIAL IV SCH (09:19)
[2018-09-09] MEDS: PANTOPRAZOLE 40 MG/10 ML VIAL IV SCH (09:19)
[2018-09-09] MEDS: CHLORHEXIDINE GLUCONATE 15 ML CUP MUCOUS MEM SCH (09:20)
[2018-09-09 09:29] LABS: Glucose,Whole Blood 193 mg/dL (75-99)
[2018-09-09] MEDS ORDERED: FUROSEMIDE 10 MG/ML 2 ML VIAL IV ONE (09:46)
[2018-09-09 10:05] LABS: Glucose,Whole Blood 203 mg/dL (75-99)
[2018-09-09 11:07] LABS: Glucose,Whole Blood 197 mg/dL (75-99)
[2018-09-09] MEDS: SODIUM CHLORIDE 0.9% 50 ML with VASOPRESSIN 20 UNIT IVPB SCH ×2 (11:13)
[2018-09-09 12:02] LABS: Glucose,Whole Blood 160 mg/dL (75-99)
[2018-09-09 12:28] LABS: ABG Base Excess -1.2 mmol/L; ABG HCO3 22 mmol/L (21-25); ABG Oxygen Saturation 96.1 % (94-97); ABG PCO2 31 mmHg (35-45); ABG PH 7.47 (7.35-7.45); ABG PO2 70 mmHg (83-108); ABG TCO2 23 mmol/L (19-24)
[2018-09-09 13:11] LABS: Glucose,Whole Blood 125 mg/dL (75-99)
[2018-09-09 14:48] LABS: Glucose,Whole Blood 168 mg/dL (75-99)
--- NOTE | 2018-09-09 15:06 | PN ---
PROGRESS NOTE This is a lady who presented with a DKA, unresponsive. Troponin elevation was also noted, but cardiac-shultz she has been fairly stable. Her platelet count is coming down. I am recommending that we hold the subcu heparin also and perform a heparin-induced thrombocytopenia panel to check. Her LV function is fairly well preserved. Her clinical picture does not suggest any acute myocardial injury. The patient is still quite sedated and hopefully the weaning efforts will begin and we will also have a chance to assess her mentation. Vitals are stable. S1-S2 heard normally, short systolic murmur noted. Lungs reveal improved air entry. Abdomen and lower extremity exam unchanged. Patient is off Levophed. She is only on a small dose of vasopressin. From a cardiac standpoint, I have no new specific suggestions. I will see her as needed. MMODL / IJN: [id number] /
[2018-09-09 15:25] LABS: Glucose,Whole Blood 172 mg/dL (75-99)
[2018-09-09 16:25] LABS: Glucose,Whole Blood 180 mg/dL (75-99)
--- NOTE | 2018-09-09 16:25 | P.PN ---
Subjective Progress Note Date: 09/09/18 This is a 68-year-old female patient remains intubated on mechanical ventilator. The patient presented to the hospital for bilateral pneumonia, DKA, severe metabolic acidosis, acute kidney injury and cyanosis. The patient this morning he remains sedated and calm and comfortable. The patient remains on Diprivan and the patient is synchronous with the mechanical ventilator. Diprivan is running at 50 g per KG per minute. The patient remains on assist control mode of ventilation with a tidal volume of 400 with an FiO2 of 40% and PEEP of 5 mg of 26.. The blood gases from today showed a pH of 7.39 with a pCO2 of 36 and pO2 118 on FiO2 of 50%. The patient has recovered from her DKA. Blood sugars under better control. The anion gap metabolic acidosis is recovered and normalized. White cell count is improving. Acute kidney injury is also improving and the creatinine is down to 1.9. The patient is currently on IV Zosyn as an empiric antibiotic coverage. Blood cultures been negative. Pre ssors are still in the form of norepinephrine infusion at running at 20 g per KG per minute. The patient is on D5 half-normal saline at the rate of 75 mL an hour. Insulin drip was restarted. ICU protocol to control the blood sugar. Patient is on DVT and GI prophylaxis. Family is at the bedside. Echocardiogram was done and the patient is a preserved LV function without any significant abnormalities noted. The chest x-ray from today shows. Is in a good location. The patient has a left subclavian triple-lumen catheter in place. There is some patchy retrocardiac opacity seen. Otherwise no other significant abnormalities noted. On today's evaluation of 09/08/2018 I'm seeing this patient for a follow-up. The patient is intubated on a mechanical ventilator. The patient remains on a same vent setting and the patient is on a assist-control mode with a tidal volume of 400 and FiO2 of 40% with a PEEP of 8 and a rate of 26. The blood gases from this morning showed a pH of 7.36 with a pCO2 of 38 and pO2 126. Based on this, I lowered the PEEP down to 5. Chest x-ray shows some limited bibasilar pulmonary infiltrates. There is a left IJ central venous catheter tip being in the right atrium. The patient is sedated with Diprivan earlier this morning at a rate of 50 mg per KG per minute. Earlier this was the patient was still hypotensive on 15-20 mics of levo fed per minutes. The patient was suspected to further IV fluids. She was given 2 L of bolus as the patient's CVP was low at around 6. Nevertheless, despite this, she continued to require pressors. CVP remains low. Echo showed a preserved LV function and there is no valvular abnormalities. The patient will be given 2 additional liters of bolus IV fluids today. The patient was started on vasopressin. Serum cortisol level was 14. Adrenal insufficiency felt to be less likely. We'll supplement this patient with stress dose hydrocortisone based on the ongoing hypotension and hemodynamic instability. Nevertheless, despite all this, the patient's anion gap is closed and the patient is on insulin drip for blood sugar control. The white cell count is down to 10.8. Renal function continues to improve and the creatinine is down to 1.01. The patient's blood cultures of been negative. The patient remains on IV Zosyn as an empiric antibiotic coverage. After stabilizing the hemodynamics, intensive patient some sedation holiday and taken off the Diprivan. He she remains nothing by mouth for now. IV fluids in the form of D5 half-normal saline at the rate of 75 mL an hour. On today's evaluation of the 22,009 Seeing this patient for a follow-up. Earlier this morning the patient was still sedated and the mechanical ventilator. Things have improved considerably on this patient. Following initi ation of vasopressin physiologic dose I was able to wean this patient off the levo fed and discontinue. We gradually improved her volume status. We gave her several bolus of IV fluids and the patient is at least 10 L positive in terms of her net fluid balance. The CVP has built up gradually to 13. Earlier this morning she was found to have some diminished urine output. I Did Fluids to KVO and I Also Give the Patient 20 Mg of IV Lasix Which Helped Her Significantly with a Urine Output. Meanwhile, the patient was on sedation. I discontinued the propofol and we noted gradual recovery of an underlying mental status. At the later stage she was awake and alert. She was able to give us a spontaneous breathing trial and after she demonstrated an adequate weaning parameters. There is spontaneous breathing trial was given with a pressure support of 5 and a PEEP of 5 and a blood gas was checked and following that the patient was extubated to a 4 L of oxygen by nasal cannula. She is doing very well. She is awake and alert and communicating and she is hemodynamically stable at this point in time. Chest x- ray from today shows some limited bibasilar pulmonary infiltrates related to her previous or recent pneumonia. She remains on IV Zosyn. She remains on insulin drip. D5 water half-normal saline was cut down to KVO. Enteral feeding was also discontinued and the NG tube was removed. Current insulin drip is running at 8 units an hour for adequate blood sugar control. No other complaints otherwise for now. She seems to be alert and awake and communicating. She is moving all 4 extremity is without any limitation. Her white cell count is improved. Her renal function is also improved and normalized and creatinine is down to 0.67. The patient has developed some melanotic stools and a hemoglobin is stable at 11.7. She remains on IV Protonix. Also, noted a drop in her platelet count, down to 70,000 and the patient was taken off the subcu heparin and she will given SCDs. She remains on IV Zosyn. Vasopressin was also weaned off and discontinued. Objective - Vital Signs Vital signs: Vital Signs Temp 97.5 F L 09/09/18 12:00 Pulse 70 09/09/18 15:45 Resp 15 09/09/18 15:45 BP 109/61 09/09/18 15:45 Pulse Ox 99 09/09/18 15:45 Intake & Output 09/08/18 09/09/18 09/09/18 18:59 06:59 18:59 Intake Total 3254.506 1624.348 924.079 Output Total 9131 685 4772 Balance 0752.033 1959.348 -545.921 Weight 122.3 kg 124.2 kg Intake: IV 3000 1100 690 D5-0.45% NaCl with KCl 900 900 290 20Meq/l 1,000 ml @ 20 mls /hr IV .Q24H [facility] Rx#: [id number] Magnesium Sulfate-D5w Pmx 100 100 1 gm In Dextrose/Water 1 100ml.bag @ 100 mls/hr IVPB Q1H [facility] Rx#: [id number] Piperacillin-Tazobactam 3 100 100 100 .375 gm In Sodium Chloride 0.9% 100 ml @ 25 mls/hr IVPB Q8HR [facility] Rx# :[id number] Sodium Chloride 0.9% 2, 2000 000 ml @ 999 mls/hr IV . Q2H1M ONE Rx#:[id number] Sodium Phosphate 10 mmol 200 In Sodium Chloride 0.9% 100 ml @ 50 mls/hr IVPB Q2H [facility] Rx#:[id number] Intake, IV Titration 254.506 109.348 172.079 Amount Insulin Regular 100 unit 43.179 83.754 72.079 In Sodium Chloride 0.9% 100 ml @ Per Protocol IV .Q0M [facility] Rx#:[id number] Norepinephrine 32 mg In 36.540 9.94 Sodium Chloride 0.9% 218 ml @ 0.05 MCG/KG/MIN 2. 625 mls/hr IV .Q24H [facility] Rx#:[id number] Propofol 1,000 mg In 174.787 15.654 100 Empty Bag 1 bag @ Titrate IV .Q0M [facility] Rx#: [id number] Tube Feeding 295 62 Other 120 Output: Urine 8438 310 8141 Other: Voiding Method Indwelling Catheter Indwelling Catheter Indwelling Catheter ABP, PAP, CO, CI - Last Documented Arterial Blood Pressure 148/63 - Exam Gen. appearance extubated awake and alert on 4 L of oxygen by nasal cannula. Head exam was generally normal. There was no scleral icterus or corneal arcus. Mucous membranes were moist. Neck was supple and without jugular venous distension, thyromegaly, or carotid bruits. Carotids were easily palpable bilaterally. There was no adenopathy. Orogastric and orotracheal tube removed Lungs were clear to auscultation and percussion, and with normal diaphragmatic excursion. No wheezes or rales were noted. Cardiac exam revealed the PMI to be normally situated and sized. The rhythm was regular and no extrasystoles were noted during several minutes of auscultation. The first and second heart sounds were normal and physiologic splitting of the second heart sound was noted. There were no murmurs, rubs, clicks, or gallops. Abdominal exam revealed normal bowel sounds. The abdomen was soft, non-tender, and without masses, organomegaly, or appreciable enlargement of the abdominal aorta. Examination of the extremities revealed easily palpable radial, femoral and pedal pulses. There was no cyanosis, clubbing or edema. Examination of the skin revealed no evidence of significant rashes, suspicious appearing nevi or other concerning lesions. The patient triple-lumen catheter in the left IJ Neurologically awake and alert and there is no focal neurological deficits Psychiatric to the patient has no delusions or hallucinations. She is a very emotionally labile person, very sensitive and in touch with her and her self and she cries frequently especially when she is given further details about her condition. - Labs CBC & Chem 7: 09/09/18 04:24 09/09/18 04:24 Labs: Abnormal Lab Results - Last 24 Hours (Table) 09/08/18 09/08/18 09/08/18 Range/Units 18:07 19:13 20:05 RBC (3.80-5.40) m/uL Plt Count (150-450) k/uL Neutrophils # (1.3-7.7) k/uL Lymphocytes # (1.0-4.8) k/uL ABG pH (7.35-7.45) ABG pCO2 (35-45) mmHg ABG pO2 (83-108) mmHg Chloride (98-107) mmol/L BUN (7-17) mg/dL Glucose (74-99) mg/dL POC Glucose (mg/dL) 149 H 176 H 215 H (75-99) mg/dL Calcium (8.4-10.2) mg/dL Phosphorus (2.5-4.5) mg/dL Stool Occult Blood (Negative) 09/08/18 09/08/18 09/08/18 Range/Units 21:08 22:02 23:00 RBC (3.80-5.40) m/uL Plt Count (150-450) k/uL Neutrophils # (1.3-7.7) k/uL Lymphocytes # (1.0-4.8) k/uL ABG pH (7.35-7.45) ABG pCO2 (35-45) mmHg ABG pO2 (83-108) mmHg Chloride (98-107) mmol/L BUN (7-17) mg/dL Glucose (74-99) mg/dL POC Glucose (mg/dL) 218 H 210 H 195 H (75-99) mg/dL Calcium (8.4-10.2) mg/dL Phosphorus (2.5-4.5) mg/dL Stool Occult Blood (Negative) 09/09/18 09/09/18 09/09/18 Range/Units 00:04 01:02 01:58 RBC (3.80-5.40) m/uL Plt Count (150-450) k/uL Neutrophils # (1.3-7.7) k/uL Lymphocytes # (1.0-4.8) k/uL ABG pH (7.35-7.45) ABG pCO2 (35-45) mmHg ABG pO2 (83-108) mmHg Chloride (98-107) mmol/L BUN (7-17) mg/dL Glucose (74-99) mg/dL POC Glucose (mg/dL) 191 H 177 H 173 H (75-99) mg/dL Calcium (8.4-10.2) mg/dL Phosphorus (2.5-4.5) mg/dL Stool Occult Blood (Negative) 09/09/18 09/09/18 09/09/18 Range/Units 03:00 03:59 03:59 RBC (3.80-5.40) m/uL Plt Count (150-450) k/uL Neutrophils # (1.3-7.7) k/uL Lymphocytes # (1.0-4.8) k/uL ABG pH (7.35-7.45) ABG pCO2 (35-45) mmHg ABG pO2 (83-108) mmHg Chloride (98-107) mmol/L BUN (7-17) mg/dL Glucose (74-99) mg/dL POC Glucose (mg/dL) 189 H 206 H 206 H (75-99) mg/dL Calcium (8.4-10.2) mg/dL Phosphorus (2.5-4.5) mg/dL Stool Occult Blood (Negative) 09/09/18 09/09/18 09/09/18 Range/Units 03:59 04:24 04:24 RBC 3.73 L (3.80-5.40) m/uL Plt Count 73 L (150-450) k/uL Neutrophils # 9.1 H (1.3-7.7) k/uL Lymphocytes # 0.5 L (1.0-4.8) k/uL ABG pH (7.35-7.45) ABG pCO2 (35-45) mmHg ABG pO2 (83-108) mmHg Chloride 114 H (98-107) mmol/L BUN 21 H (7-17) mg/dL Glucose 201 H (74-99) mg/dL POC Glucose (mg/dL) 206 H (75-99) mg/dL Calcium 8.1 L (8.4-10.2) mg/dL Phosphorus 1.8 L (2.5-4.5) mg/dL Stool Occult Blood (Negative) 09/09/18 09/09/18 09/09/18 Range/Units 04:59 05:32 05:59 RBC (3.80-5.40) m/uL Plt Count (150-450) k/uL Neutrophils # (1.3-7.7) k/uL Lymphocytes # (1.0-4.8) k/uL ABG pH (7.35-7.45) ABG pCO2 34 L (35-45) mmHg ABG pO2 68 L (83-108) mmHg Chloride (98-107) mmol/L BUN (7-17) mg/dL Glucose (74-99) mg/dL POC Glucose (mg/dL) 179 H 215 H (75-99) mg/dL Calcium (8.4-10.2) mg/dL Phosphorus (2.5-4.5) mg/dL Stool Occult Blood (Negative) 09/09/18 09/09/18 09/09/18 Range/Units 07:06 08:11 08:40 RBC (3.80-5.40) m/uL Plt Count (150-450) k/uL Neutrophils # (1.3-7.7) k/uL Lymphocytes # (1.0-4.8) k/uL ABG pH (7.35-7.45) ABG pCO2 (35-45) mmHg ABG pO2 (83-108) mmHg Chloride (98-107) mmol/L BUN (7-17) mg/dL Glucose (74-99) mg/dL POC Glucose (mg/dL) 235 H 227 H (75-99) mg/dL Calcium (8.4-10.2) mg/dL Phosphorus (2.5-4.5) mg/dL Stool Occult Blood Positive H (Negative) 09/09/18 09/09/18 09/09/18 Range/Units 09:27 10:04 11:06 RBC (3.80-5.40) m/uL Plt Count (150-450) k/uL Neutrophils # (1.3-7.7) k/uL Lymphocytes # (1.0-4.8) k/uL ABG pH (7.35-7.45) ABG pCO2 (35-45) mmHg ABG pO2 (83-108) mmHg Chloride (98-107) mmol/L BUN (7-17) mg/dL Glucose (74-99) mg/dL POC Glucose (mg/dL) 193 H 203 H 197 H (75-99) mg/dL Calcium (8.4-10.2) mg/dL Phosphorus (2.5-4.5) mg/dL Stool Occult Blood (Negative) 09/09/18 09/09/18 09/09/18 Range/Units 12:01 12:26 13:09 RBC (3.80-5.40) m/uL Plt Count (150-450) k/uL Neutrophils # (1.3-7.7) k/uL Lymphocytes # (1.0-4.8) k/uL ABG pH 7.47 H (7.35-7.45) ABG pCO2 31 L (35-45) mmHg ABG pO2 70 L (83-108) mmHg Chloride (98-107) mmol/L BUN (7-17) mg/dL Glucose (74-99) mg/dL POC Glucose (mg/dL) 160 H 125 H (75-99) mg/dL Calcium (8.4-10.2) mg/dL Phosphorus (2.5-4.5) mg/dL Stool Occult Blood (Negative) 09/09/18 09/09/18 Range/Units 14:46 15:23 RBC (3.80-5.40) m/uL Plt Count (150-450) k/uL Neutrophils # (1.3-7.7) k/uL Lymphocytes # (1.0-4.8) k/uL ABG pH (7.35-7.45) ABG pCO2 (35-45) mmHg ABG pO2 (83-108) mmHg Chloride (98-107) mmol/L BUN (7-17) mg/dL Glucose (74-99) mg/dL POC Glucose (mg/dL) 168 H 172 H (75-99) mg/dL Calcium (8.4-10.2) mg/dL Phosphorus (2.5-4.5) mg/dL Stool Occult Blood (Negative) Microbiology - Last 24 Hours (Table) 09/05/18 17:35 Blood Culture - Preliminary Blood No Growth after 72 hours 09/05/18 17:45 Blood Culture - Preliminary Blood No Growth after 72 hours Assessment and Plan Plan: Assessment 1 acute septic shock likely secondary to underlying bilateral pneumonia right more than left currently on Zosyn. The patient presented with basilar co nsolidation with small bilateral pleural effusion right more than left, possible aspiration. The patient was aggressively resuscitated IV fluids and pressors and the patient was stabilized. Currently the patient is off pressors. CVP is around 13. 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 Underlying coronary artery disease needs to be considered, consider acute non-STEMI.. Nevertheless, this troponin leak could be related to above-mentioned events and hypotension. 13 thrombocytopenia, possibly related to sepsis versus heparin and heparin subcu was discontinued 14 suspected GI bleed, stable hemoglobin with Plan She is fully recovered from her septic shock. She has normalized her hemodynamic state she is off pressors. She was weaned off the mechanical ventilator and she was extubated without any major difficulties today. Currently she is on oxygen at 4 L per minute nasal cannula. Her mental status seems to be appropriate. Psychiatrically, she needs to be further evaluated. She remains on IV Zosyn. The drop in the platelet count was noted. Subcu heparin was discontinued and the patient was switched to a estimated to the lower extremities. Discontinue the NG tube. Discontinue the enteral feeding. We'll allow diet with the next 6-8 hours and the patient is able to swallow foods. Keep the stress dose hydrocortisone for another 24 hours. Discontinue the vasopressors and physiologic dose. Continue IV Protonix and monitor this patient. Watch for any signs of GI bleeding. This is a critically care evaluation that was done in more than 30 minutes. Time with Patient: Greater than 30
[2018-09-09 17:18] LABS: Glucose,Whole Blood 149 mg/dL (75-99)
[2018-09-09 18:01] LABS: Glucose,Whole Blood 165 mg/dL (75-99)
[2018-09-09] MEDS: NOREPINEPHRINE 32 MG in SODIUM CHLORIDE 0.9% 218 ML IV SCH (18:36)
[2018-09-09 18:54] LABS: Glucose,Whole Blood 156 mg/dL (75-99)
[2018-09-09 19:54] LABS: Glucose,Whole Blood 131 mg/dL (75-99)
[2018-09-09] MEDS ORDERED: IPRATROPIUM-ALBUTEROL 3 ML NEB INHALATION PRN (20:38)
[2018-09-09 21:19] LABS: Glucose,Whole Blood 150 mg/dL (75-99)
[2018-09-09 22:05] LABS: Glucose,Whole Blood 263 mg/dL (75-99)
[2018-09-09 22:05] LABS: Glucose,Whole Blood 214 mg/dL (75-99)
[2018-09-09 22:09] LABS: Glucose,Whole Blood 201 mg/dL (75-99)
[2018-09-09 23:07] LABS: Glucose,Whole Blood 235 mg/dL (75-99)
[2018-09-10 00:06] LABS: Glucose,Whole Blood 235 mg/dL (75-99)
[2018-09-10 01:05] LABS: Glucose,Whole Blood 212 mg/dL (75-99)
[2018-09-10 01:58] LABS: Glucose,Whole Blood 174 mg/dL (75-99)
[2018-09-10 03:20] LABS: Glucose,Whole Blood 125 mg/dL (75-99)
[2018-09-10 04:25] LABS: Glucose,Whole Blood 141 mg/dL (75-99)
[2018-09-10 04:58] LABS: Basophils % (A) 0 %; Eosinophils % (A) 0 %; HCT 34.6 % (34.0-46.0); HGB 11.2 gm/dL (11.4-16.0); Lymphocytes # (A) 0.4 k/uL (1.0-4.8); Lymphocytes % (A) 6 %; MCH 31.1 pg (25.0-35.0); MCHC 32.2 g/dL (31.0-37.0); MCV 96.5 fL (80.0-100.0); Mean Platelet Volume 9.8; Monocytes # (A) 0.5 k/uL (0-1.0); Monocytes % (A) 7 %; Neutrophils # (A) 6.5 k/uL (1.3-7.7); Neutrophils % (A) 86 %; RBC 3.59 m/uL (3.80-5.40); RDW 14.1 % (11.5-15.5); WBC 7.7 k/uL (3.8-10.6)
[2018-09-10 05:00] LABS: Platelet Count 81 k/uL (150-450)
[2018-09-10 05:03] LABS: Glucose,Whole Blood 175 mg/dL (75-99)
[2018-09-10] MEDS: NOREPINEPHRINE 32 MG in SODIUM CHLORIDE 0.9% 218 ML IV SCH (05:03)
[2018-09-10 05:09] LABS: INR 1.1 (<1.2); Partial Thromboplastin Time 25.3 sec (22.0-30.0); Prothrombin Time 11.5 sec (9.0-12.0)
[2018-09-10 05:15] LABS: Anion Gap 7 mmol/L; Blood Urea Nitrogen 22 mg/dL (7-17); Carbon Dioxide 21 mmol/L (22-30); Chloride 114 mmol/L (98-107); Glucose 180 mg/dL (74-99); Magnesium 1.8 mg/dL (1.6-2.3); Phosphorus 1.8 mg/dL (2.5-4.5); Potassium 3.5 mmol/L (3.5-5.1); Sodium 142 mmol/L (137-145)
[2018-09-10 06:08] LABS: Glucose,Whole Blood 197 mg/dL (75-99)
[2018-09-10] MEDS: POTASSIUM CHLORIDE 20 MEQ in WATER FOR INJECTION 1 100ML.BAG IVPB SCH ×2 (06:45→08:21)
[2018-09-10] MEDS: MAGNESIUM SULFATE-D5W PMX 1 GM in DEXTROSE/WATER 1 100ML.BAG IVPB SCH ×2 (06:45→08:21)
[2018-09-10 07:05] LABS: Glucose,Whole Blood 189 mg/dL (75-99)
[2018-09-10] MEDS: IPRATROPIUM-ALBUTEROL 3 ML NEB INHALATION SCH ×4 (07:48→20:10)
--- NOTE | 2018-09-10 07:55 | XR ---
EXAMINATION TYPE: XR chest 1V portable DATE OF EXAM: 09/10/2018 Comparison: 09/09/2018 Clinical History: 68-year-old female Tube placement Findings: Left CVC tip in the lower right atrium. Interval extubation. Heart upper limits of normal in size, st able. Mild interstitial prominence with small left pleural effusion. Impression: Stable interstitial prominence and small left pleural effusion with adjacent atelectasis and/or conso lidation. Correlate for possible sequela of mild CHF.
[2018-09-10 08:17] LABS: Glucose,Whole Blood 163 mg/dL (75-99)
[2018-09-10] MEDS: PIPERACILLIN-TAZOBACTAM 3.375 GM in SODIUM CHLORIDE 0.9% 100 ML IVPB SCH ×3 (08:21→23:57)
[2018-09-10] MEDS: LEVOTHYROXINE IVP 100 MCG/5 ML VIAL IV SCH (08:22)
[2018-09-10] MEDS: PANTOPRAZOLE 40 MG/10 ML VIAL IV SCH (08:22)
[2018-09-10] MEDS: HYDROCORTISONE SUCCINATE 100 MG/2 ML VIAL IV SCH (08:22)
[2018-09-10 09:12] LABS: Glucose,Whole Blood 159 mg/dL (75-99)
[2018-09-10] MEDS: INSULIN REGULAR 100 UNIT in SODIUM CHLORIDE 0.9% 100 ML IV SCH ×2 (09:12→22:10)
[2018-09-10] MEDS: METOPROLOL TARTRATE 12.5 MG TAB PO SCH (09:14)
[2018-09-10 10:07] LABS: Glucose,Whole Blood 126 mg/dL (75-99)
[2018-09-10 11:15] LABS: Glucose,Whole Blood 183 mg/dL (75-99)
[2018-09-10] MEDS: POTASSIUM PHOSPHATE 10 MMOL in SODIUM CHLORIDE 0.9% 100 ML IV SCH ×2 (11:20→13:07)
[2018-09-10 12:05] LABS: Glucose,Whole Blood 190 mg/dL (75-99)
[2018-09-10 13:05] LABS: Glucose,Whole Blood 219 mg/dL (75-99)
[2018-09-10 14:08] LABS: Glucose,Whole Blood 239 mg/dL (75-99)
[2018-09-10 15:08] LABS: Glucose,Whole Blood 168 mg/dL (75-99)
--- NOTE | 2018-09-10 15:16 | P.PN ---
Subjective Progress Note Date: 09/10/18 This is a 68-year-old female patient remains intubated on mechanical ventilator. The patient presented to the hospital for bilateral pneumonia, DKA, severe metabolic acidosis, acute kidney injury and cyanosis. The patient this morning he remains sedated and calm and comfortable. The patient remains on Diprivan and the patient is synchronous with the mechanical ventilator. Diprivan is running at 50 g per KG per minute. The patient remains on assist control mode of ventilation with a tidal volume of 400 with an FiO2 of 40% and PEEP of 5 mg of 26.. The blood gases from today showed a pH of 7.39 with a pCO2 of 36 and pO2 118 on FiO2 of 50%. The patient has recovered from her DKA. Blood sugars under better control. The anion gap metabolic acidosis is recovered and normalized. White cell count is improving. Acute kidney injury is also improving and the creatinine is down to 1.9. The patient is currently on IV Zosyn as an empiric antibiotic coverage. Blood cultures been negative. Pre ssors are still in the form of norepinephrine infusion at running at 20 g per KG per minute. The patient is on D5 half-normal saline at the rate of 75 mL an hour. Insulin drip was restarted. ICU protocol to control the blood sugar. Patient is on DVT and GI prophylaxis. Family is at the bedside. Echocardiogram was done and the patient is a preserved LV function without any significant abnormalities noted. The chest x-ray from today shows. Is in a good location. The patient has a left subclavian triple-lumen catheter in place. There is some patchy retrocardiac opacity seen. Otherwise no other significant abnormalities noted. On today's evaluation of 09/08/2018 I'm seeing this patient for a follow-up. The patient is intubated on a mechanical ventilator. The patient remains on a same vent setting and the patient is on a assist-control mode with a tidal volume of 400 and FiO2 of 40% with a PEEP of 8 and a rate of 26. The blood gases from this morning showed a pH of 7.36 with a pCO2 of 38 and pO2 126. Based on this, I lowered the PEEP down to 5. Chest x-ray shows some limited bibasilar pulmonary infiltrates. There is a left IJ central venous catheter tip being in the right atrium. The patient is sedated with Diprivan earlier this morning at a rate of 50 mg per KG per minute. Earlier this was the patient was still hypotensive on 15-20 mics of levo fed per minutes. The patient was suspected to further IV fluids. She was given 2 L of bolus as the patient's CVP was low at around 6. Nevertheless, despite this, she continued to require pressors. CVP remains low. Echo showed a preserved LV function and there is no valvular abnormalities. The patient will be given 2 additional liters of bolus IV fluids today. The patient was started on vasopressin. Serum cortisol level was 14. Adrenal insufficiency felt to be less likely. We'll supplement this patient with stress dose hydrocortisone based on the ongoing hypotension and hemodynamic instability. Nevertheless, despite all this, the patient's anion gap is closed and the patient is on insulin drip for blood sugar control. The white cell count is down to 10.8. Renal function continues to improve and the creatinine is down to 1.01. The patient's blood cultures of been negative. The patient remains on IV Zosyn as an empiric antibiotic coverage. After stabilizing the hemodynamics, intensive patient some sedation holiday and taken off the Diprivan. He she remains nothing by mouth for now. IV fluids in the form of D5 half-normal saline at the rate of 75 mL an hour. On today's evaluation of the 22,009 Seeing this patient for a follow-up. Earlier this morning the patient was still sedated and the mechanical ventilator. Things have improved considerably on this patient. Following initi ation of vasopressin physiologic dose I was able to wean this patient off the levo fed and discontinue. We gradually improved her volume status. We gave her several bolus of IV fluids and the patient is at least 10 L positive in terms of her net fluid balance. The CVP has built up gradually to 13. Earlier this morning she was found to have some diminished urine output. I Did Fluids to KVO and I Also Give the Patient 20 Mg of IV Lasix Which Helped Her Significantly with a Urine Output. Meanwhile, the patient was on sedation. I discontinued the propofol and we noted gradual recovery of an underlying mental status. At the later stage she was awake and alert. She was able to give us a spontaneous breathing trial and after she demonstrated an adequate weaning parameters. There is spontaneous breathing trial was given with a pressure support of 5 and a PEEP of 5 and a blood gas was checked and following that the patient was extubated to a 4 L of oxygen by nasal cannula. She is doing very well. She is awake and alert and communicating and she is hemodynamically stable at this point in time. Chest x- ray from today shows some limited bibasilar pulmonary infiltrates related to her previous or recent pneumonia. She remains on IV Zosyn. She remains on insulin drip. D5 water half-normal saline was cut down to KVO. Enteral feeding was also discontinued and the NG tube was removed. Current insulin drip is running at 8 units an hour for adequate blood sugar control. No other complaints otherwise for now. She seems to be alert and awake and communicating. She is moving all 4 extremity is without any limitation. Her white cell count is improved. Her renal function is also improved and normalized and creatinine is down to 0.67. The patient has developed some melanotic stools and a hemoglobin is stable at 11.7. She remains on IV Protonix. Also, noted a drop in her platelet count, down to 70,000 and the patient was taken off the subcu heparin and she will given SCDs. She remains on IV Zosyn. Vasopressin was also weaned off and discontinued. On today's evaluation 09/10/2018, the patient remains off the mechanical ventilator. She is speaking up a few words and she is very much alert and awake and she follows commands and answers questions appropriately although with very short sentences. She is profoundly weak. Physical therapy has been consulted. The patient barely able to raise her arms against gravity. Otherwise, her pulmonary status is stable. No respiratory difficulties. No reported cough sputum production chest that is so wheezing. Her chest x-ray shows no acute abnormalities. It shows some stable interstitial prominence and small left- sided pleural effusion and some atelectatic changes in lung bases bilaterally. The patient on is currently on KVO IV fluids. The patient is on insulin drip at 8 units an hour. The patient will be having a swallow evaluation with advanced diet if she is able to swallow appropriately. Currently, she has no nausea. No vomiting. Abdominal pain. No abdominal distention. Her blood sugars are under adequate control for now. In terms of hemodynamics, she is off the pressors and the patient's maintaining her on blood pressure without any major difficulties. She was given a dose of Lasix yesterday 20 mg IV push and she developed significant improvement in the urine output. This morning, she was started on low-dose metoprolol 12.5 mg by mouth daily. She is still maintaining her on bl ood pressure. No significant tachycardias. The beta blockers was started by cardiology as the patient had a component of non-ST elevation myocardial infarction time of admission. She remains on IV Zosyn. She is on IV Protonix. The white cell count is down to 7.7. Renal function is normalized. No other significant events otherwise for now. Objective - Vital Signs Vital signs: Vital Signs Temp 98.2 F 09/10/18 12:00 Pulse 87 09/10/18 15:00 Resp 24 09/10/18 15:00 BP 107/53 09/10/18 00:30 Pulse Ox 99 09/10/18 15:00 Intake & Output 09/09/18 09/10/18 09/10/18 18:59 06:59 18:59 Intake Total 1032.048 629.743 645.775 Output Total 2420 1250 375 Balance -1387.952 -620.257 270.775 Weight 123.3 kg 123.3 kg Intake: IV 770 540 580 D5-0.45% NaCl with KCl 370 240 80 20Meq/l 1,000 ml @ 20 mls /hr IV .Q24H [facility] Rx#: [id number] Magnesium Sulfate-D5w Pmx 100 1 gm In Dextrose/Water 1 100ml.bag @ 100 mls/hr IVPB Q1H [facility] Rx#: [id number] Magnesium Sulfate-D5w Pmx 100 100 1 gm In Dextrose/Water 1 100ml.bag @ 100 mls/hr IVPB Q1H [facility] Rx#: [id number] Piperacillin-Tazobactam 3 100 100 100 .375 gm In Sodium Chloride 0.9% 100 ml @ 25 mls/hr IVPB Q8HR [facility] Rx# :[id number] Potassium Chloride 20 meq 100 100 In Water For Injection 1 100ml.bag @ 50 mls/hr IVPB Q2H [facility] Rx#: [id number] Potassium Phosphate 10 200 mmol In Sodium Chloride 0 .9% 100 ml @ 50 mls/hr IV Q2H [facility] Rx#:[id number] Sodium Phosphate 10 mmol 200 In Sodium Chloride 0.9% 100 ml @ 50 mls/hr IVPB Q2H [facility] Rx#:[id number] Intake, IV Titration 200.048 89.743 65.775 Amount Insulin Regular 100 unit 100.048 89.008 65.775 In Sodium Chloride 0.9% 100 ml @ Per Protocol IV .Q0M [facility] Rx#:[id number] Norepinephrine 32 mg In 0.735 Sodium Chloride 0.9% 218 ml @ 0.05 MCG/KG/MIN 2. 625 mls/hr IV .Q24H [facility] Rx#:[id number] Propofol 1,000 mg In 100 Empty Bag 1 bag @ Titrate IV .Q0M [facility] Rx#: [id number] Tube Feeding 62 Output: Urine 2420 1250 375 Other: Voiding Method Indwelling Catheter Indwelling Catheter Indwelling Catheter # Bowel Movements 1 ABP, PAP, CO, CI - Last Documented Arterial Blood Pressure 116/48 - Exam Gen. appearance extubated awake and alert on 4 L of oxygen by nasal cannula. Head exam was generally normal. There was no scleral icterus or corneal arcus. Mucous membranes were moist. Neck was supple and without jugular venous distension, thyromegaly, or carotid bruits. Carotids were easily palpable bilaterally. There was no adenopathy. Orogastric and orotracheal tube removed Lungs were clear to auscultation and percussion, and with normal diaphragmatic excursion. No wheezes or rales were noted. Cardiac exam revealed the PMI to be normally situated and sized. The rhythm was regular and no extrasystoles were noted during several minutes of auscultation. The first and second heart sounds were normal and physiologic splitting of the second heart sound was noted. There were no murmurs, rubs, clicks, or gallops. Abdominal exam revealed normal bowel sounds. The abdomen was soft, non-tender, and without masses, organomegaly, or appreciable enlargement of the abdominal aorta. Examination of the extremities revealed easily palpable radial, femoral and pedal pulses. There was no cyanosis, clubbing or edema. Examination of the skin revealed no evidence of significant rashes, suspicious appearing nevi or other concerning lesions. The patient triple-lumen catheter in the left IJ Neurologically awake and alert and there is no focal neurological deficits. The patient has significant motor weakness both in the upper and lower extremities. She is barely able to raise her arms against gravity. She has a decent cough. No facial weakness. She is following commands and answering questions appropriately. Psychiatric to the patient has no delusions or hallucinations. She is a very emotionally labile person, very sensitive and in touch with her and her self and she cries frequently especially when she is given further details about her condition. - Labs CBC & Chem 7: 09/10/18 04:30 09/10/18 04:30 Labs: Abnormal Lab Results - Last 24 Hours (Table) 09/09/18 09/09/18 09/09/18 Range/Units 15:23 16:23 17:17 RBC (3.80-5.40) m/uL Hgb (11.4-16.0) gm/dL Plt Count (150-450) k/uL Lymphocytes # (1.0-4.8) k/uL Chloride (98-107) mmol/L Carbon Dioxide (22-30) mmol/L BUN (7-17) mg/dL Glucose (74-99) mg/dL POC Glucose (mg/dL) 172 H 180 H 149 H (75-99) mg/dL Calcium (8.4-10.2) mg/dL Phosphorus (2.5-4.5) mg/dL 09/09/18 09/09/18 09/09/18 Range/Units 17:59 18:52 19:53 RBC (3.80-5.40) m/uL Hgb (11.4-16.0) gm/dL Plt Count (150-450) k/uL Lymphocytes # (1.0-4.8) k/uL Chloride (98-107) mmol/L Carbon Dioxide (22-30) mmol/L BUN (7-17) mg/dL Glucose (74-99) mg/dL POC Glucose (mg/dL) 165 H 156 H 131 H (75-99) mg/dL Calcium (8.4-10.2) mg/dL Phosphorus (2.5-4.5) mg/dL 09/09/18 09/09/18 09/09/18 Range/Units 21:18 22:03 22:04 RBC (3.80-5.40) m/uL Hgb (11.4-16.0) gm/dL Plt Count (150-450) k/uL Lymphocytes # (1.0-4.8) k/uL Chloride (98-107) mmol/L Carbon Dioxide (22-30) mmol/L BUN (7-17) mg/dL Glucose (74-99) mg/dL POC Glucose (mg/dL) 150 H 263 H 214 H (75-99) mg/dL Calcium (8.4-10.2) mg/dL Phosphorus (2.5-4.5) mg/dL 09/09/18 09/09/18 09/10/18 Range/Units 22:08 23:05 00:05 RBC (3.80-5.40) m/uL Hgb (11.4-16.0) gm/dL Plt Count (150-450) k/uL Lymphocytes # (1.0-4.8) k/uL Chloride (98-107) mmol/L Carbon Dioxide (22-30) mmol/L BUN (7-17) mg/dL Glucose (74-99) mg/dL POC Glucose (mg/dL) 201 H 235 H 235 H (75-99) mg/dL Calcium (8.4-10.2) mg/dL Phosphorus (2.5-4.5) mg/dL 09/10/18 09/10/18 09/10/18 Range/Units 01:04 01:58 03:18 RBC (3.80-5.40) m/uL Hgb (11.4-16.0) gm/dL Plt Count (150-450) k/uL Lymphocytes # (1.0-4.8) k/uL Chloride (98-107) mmol/L Carbon Dioxide (22-30) mmol/L BUN (7-17) mg/dL Glucose (74-99) mg/dL POC Glucose (mg/dL) 212 H 174 H 125 H (75-99) mg/dL Calcium (8.4-10.2) mg/dL Phosphorus (2.5-4.5) mg/dL 09/10/18 09/10/18 09/10/18 Range/Units 04:24 04:30 04:30 RBC 3.59 L (3.80-5.40) m/uL Hgb 11.2 L (11.4-16.0) gm/dL Plt Count 81 L (150-450) k/uL Lymphocytes # 0.4 L (1.0-4.8) k/uL Chloride 114 H (98-107) mmol/L Carbon Dioxide 21 L (22-30) mmol/L BUN 22 H (7-17) mg/dL Glucose 180 H (74-99) mg/dL POC Glucose (mg/dL) 141 H (75-99) mg/dL Calcium 8.0 L (8.4-10.2) mg/dL Phosphorus 1.8 L (2.5-4.5) mg/dL 09/10/18 09/10/18 09/10/18 Range/Units 05:01 06:07 07:04 RBC (3.80-5.40) m/uL Hgb (11.4-16.0) gm/dL Plt Count (150-450) k/uL Lymphocytes # (1.0-4.8) k/uL Chloride (98-107) mmol/L Carbon Dioxide (22-30) mmol/L BUN (7-17) mg/dL Glucose (74-99) mg/dL POC Glucose (mg/dL) 175 H 197 H 189 H (75-99) mg/dL Calcium (8.4-10.2) mg/dL Phosphorus (2.5-4.5) mg/dL 09/10/18 09/10/18 09/10/18 Range/Units 08:16 09:10 10:06 RBC (3.80-5.40) m/uL Hgb (11.4-16.0) gm/dL Plt Count (150-450) k/uL Lymphocytes # (1.0-4.8) k/uL Chloride (98-107) mmol/L Carbon Dioxide (22-30) mmol/L BUN (7-17) mg/dL Glucose (74-99) mg/dL POC Glucose (mg/dL) 163 H 159 H 126 H (75-99) mg/dL Calcium (8.4-10.2) mg/dL Phosphorus (2.5-4.5) mg/dL 09/10/18 09/10/18 09/10/18 Range/Units 11:12 12:03 13:04 RBC (3.80-5.40) m/uL Hgb (11.4-16.0) gm/dL Plt Count (150-450) k/uL Lymphocytes # (1.0-4.8) k/uL Chloride (98-107) mmol/L Carbon Dioxide (22-30) mmol/L BUN (7-17) mg/dL Glucose (74-99) mg/dL POC Glucose (mg/dL) 183 H 190 H 219 H (75-99) mg/dL Calcium (8.4-10.2) mg/dL Phosphorus (2.5-4.5) mg/dL 09/10/18 09/10/18 Range/Units 14:06 15:07 RBC (3.80-5.40) m/uL Hgb (11.4-16.0) gm/dL Plt Count (150-450) k/uL Lymphocytes # (1.0-4.8) k/uL Chloride (98-107) mmol/L Carbon Dioxide (22-30) mmol/L BUN (7-17) mg/dL Glucose (74-99) mg/dL POC Glucose (mg/dL) 239 H 168 H (75-99) mg/dL Calcium (8.4-10.2) mg/dL Phosphorus (2.5-4.5) mg/dL Microbiology - Last 24 Hours (Table) 09/05/18 17:45 Blood Culture - Preliminary Blood No Growth after 96 hours 09/05/18 17:35 Blood Culture - Preliminary Blood No Growth after 96 hours Assessment and Plan Plan: Assessment 1 acute septic shock likely secondary to underlying bilateral pneumonia right more than left currently on Zosyn. 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 Underlying coronary artery disease needs to be considered, consider acute non-STEMI.. Nevertheless, this troponin leak could be related to above-mentioned events and hypotension. The patient was started on low-dose beta breanna 12.5 mg of metoprolol daily basis 13 thrombocytopenia, possibly related to sepsis versus heparin and heparin subcu was discontinued, and the platelet count today's 81 and is improved compared to yesterday 14 suspected GI bleed, stable hemoglobin with an hemoglobin is at 11.2 Plan We will involve physical therapy as the patient is profoundly weak. The patient will need aggressive physical therapy. Meanwhile, we will assess her ability to swallow and will do a bedside swallow evaluation and often this patient diet if she is able to swallow without any significant risks. The patient's primary status is stable for now. No reported cough or sputum production. No reported aspiration. Hemodynamically stable. She was started on low-dose metoprolol. The Synthroid also switched to oral. We'll discontinue the status post hydrocortisone. Continue IV Zosyn. Continue insulin drip for blood sugar control. Restart Prozac. Restart Ditropan. Restart Requip at bedtime. Keep the patient ICU for another 24 hours.
[2018-09-10 17:09] LABS: Glucose,Whole Blood 169 mg/dL (75-99)
[2018-09-10 18:09] LABS: Glucose,Whole Blood 147 mg/dL (75-99)
[2018-09-10 19:08] LABS: Glucose,Whole Blood 151 mg/dL (75-99)
--- NOTE | 2018-09-10 19:45 | P.PN ---
Subjective Progress Note Date: 09/10/18 patient is a pleasant 68 year old white female who is status post extubation and doing well she does recognize me by name but she is very sluggish and and lethargic. She continues to improve. She currently has nasal cannula in place in the left internal jugular central venous line. She has no complaints of any pain and she states that she does not need a thing at this current time. Objective - Vital Signs Vital signs: Vital Signs Temp 98.7 F 09/10/18 16:00 Pulse 77 09/10/18 19:00 Resp 22 09/10/18 19:00 BP 107/53 09/10/18 00:30 Pulse Ox 99 09/10/18 19:00 Intake & Output 09/10/18 09/10/18 09/11/18 06:59 18:59 06:59 Intake Total 629.743 796.243 29.242 Output Total 1250 495 25 Balance -620.257 301.243 4.242 Weight 123.3 kg 123.3 kg Intake: IV 540 700 20 D5-0.45% NaCl with KCl 240 100 20 20Meq/l 1,000 ml @ 20 mls /hr IV .Q24H [facility] Rx#: [id number] Magnesium Sulfate-D5w Pmx 100 100 1 gm In Dextrose/Water 1 100ml.bag @ 100 mls/hr IVPB Q1H [facility] Rx#: [id number] Piperacillin-Tazobactam 3 100 200 .375 gm In Sodium Chloride 0.9% 100 ml @ 25 mls/hr IVPB Q8HR [facility] Rx# :[id number] Potassium Chloride 20 meq 100 100 In Water For Injection 1 100ml.bag @ 50 mls/hr IVPB Q2H [facility] Rx#: [id number] Potassium Phosphate 10 200 mmol In Sodium Chloride 0 .9% 100 ml @ 50 mls/hr IV Q2H [facility] Rx#:[id number] Intake, IV Titration 89.743 96.243 9.242 Amount Insulin Regular 100 unit 89.008 96.243 9.242 In Sodium Chloride 0.9% 100 ml @ Per Protocol IV .Q0M [facility] Rx#:[id number] Norepinephrine 32 mg In 0.735 Sodium Chloride 0.9% 218 ml @ 0.05 MCG/KG/MIN 2. 625 mls/hr IV .Q24H [facility] Rx#:[id number] Output: Urine 1250 495 25 Other: Voiding Method Indwelling Catheter Indwelling Catheter # Bowel Movements 1 ABP, PAP, CO, CI - Last Documented Arterial Blood Pressure 107/50 - Exam PHYSICAL EXAMINATION: Patient is currently sedated and intubated. HEENT: Normocephalic. Neck is supple. Pupils reactive. Nostrils clear. Oral cavity is moist. Ears reveal no drainage. Neck reveals no JVD, carotid bruits, or thyromegaly. CHEST EXAMINATION: Trachea is central. Endotracheal tube in place. Symmetrical expansion. Bilateral diffuse rhonchi/coarse breath sounds. CARDIAC: Normal S1, S2 with no gallops. No murmurs ABDOMEN: Soft. Bowel sounds present. No organomegaly. No abdominal bruits. Extremities: reveal some pretibial edema bilateral. No clubbing or cyanosis feet with deformities and evidence of fungal nails Neurologically . Currently sedated. No gross focal deficits noted Skin: No rash or skin lesions. Psychiatric: Could not be assessed at this time. Musculoskeletal: No joint swelling or deformity. - Labs CBC & Chem 7: 09/10/18 04:30 09/10/18 04:30 Labs: Abnormal Lab Results - Last 24 Hours (Table) 09/09/18 09/09/18 09/09/18 Range/Units 19:53 21:18 22:03 RBC (3.80-5.40) m/uL Hgb (11.4-16.0) gm/dL Plt Count (150-450) k/uL Lymphocytes # (1.0-4.8) k/uL Chloride (98-107) mmol/L Carbon Dioxide (22-30) mmol/L BUN (7-17) mg/dL Glucose (74-99) mg/dL POC Glucose (mg/dL) 131 H 150 H 263 H (75-99) mg/dL Calcium (8.4-10.2) mg/dL Phosphorus (2.5-4.5) mg/dL 09/09/18 09/09/18 09/09/18 Range/Units 22:04 22:08 23:05 RBC (3.80-5.40) m/uL Hgb (11.4-16.0) gm/dL Plt Count (150-450) k/uL Lymphocytes # (1.0-4.8) k/uL Chloride (98-107) mmol/L Carbon Dioxide (22-30) mmol/L BUN (7-17) mg/dL Glucose (74-99) mg/dL POC Glucose (mg/dL) 214 H 201 H 235 H (75-99) mg/dL Calcium (8.4-10.2) mg/dL Phosphorus (2.5-4.5) mg/dL 09/10/18 09/10/18 09/10/18 Range/Units 00:05 01:04 01:58 RBC (3.80-5.40) m/uL Hgb (11.4-16.0) gm/dL Plt Count (150-450) k/uL Lymphocytes # (1.0-4.8) k/uL Chloride (98-107) mmol/L Carbon Dioxide (22-30) mmol/L BUN (7-17) mg/dL Glucose (74-99) mg/dL POC Glucose (mg/dL) 235 H 212 H 174 H (75-99) mg/dL Calcium (8.4-10.2) mg/dL Phosphorus (2.5-4.5) mg/dL 09/10/18 09/10/18 09/10/18 Range/Units 03:18 04:24 04:30 RBC 3.59 L (3.80-5.40) m/uL Hgb 11.2 L (11.4-16.0) gm/dL Plt Count 81 L (150-450) k/uL Lymphocytes # 0.4 L (1.0-4.8) k/uL Chloride (98-107) mmol/L Carbon Dioxide (22-30) mmol/L BUN (7-17) mg/dL Glucose (74-99) mg/dL POC Glucose (mg/dL) 125 H 141 H (75-99) mg/dL Calcium (8.4-10.2) mg/dL Phosphorus (2.5-4.5) mg/dL 09/10/18 09/10/18 09/10/18 Range/Units 04:30 05:01 06:07 RBC (3.80-5.40) m/uL Hgb (11.4-16.0) gm/dL Plt Count (150-450) k/uL Lymphocytes # (1.0-4.8) k/uL Chloride 114 H (98-107) mmol/L Carbon Dioxide 21 L (22-30) mmol/L BUN 22 H (7-17) mg/dL Glucose 180 H (74-99) mg/dL POC Glucose (mg/dL) 175 H 197 H (75-99) mg/dL Calcium 8.0 L (8.4-10.2) mg/dL Phosphorus 1.8 L (2.5-4.5) mg/dL 09/10/18 09/10/18 09/10/18 Range/Units 07:04 08:16 09:10 RBC (3.80-5.40) m/uL Hgb (11.4-16.0) gm/dL Plt Count (150-450) k/uL Lymphocytes # (1.0-4.8) k/uL Chloride (98-107) mmol/L Carbon Dioxide (22-30) mmol/L BUN (7-17) mg/dL Glucose (74-99) mg/dL POC Glucose (mg/dL) 189 H 163 H 159 H (75-99) mg/dL Calcium (8.4-10.2) mg/dL Phosphorus (2.5-4.5) mg/dL 09/10/18 09/10/18 09/10/18 Range/Units 10:06 11:12 12:03 RBC (3.80-5.40) m/uL Hgb (11.4-16.0) gm/dL Plt Count (150-450) k/uL Lymphocytes # (1.0-4.8) k/uL Chloride (98-107) mmol/L Carbon Dioxide (22-30) mmol/L BUN (7-17) mg/dL Glucose (74-99) mg/dL POC Glucose (mg/dL) 126 H 183 H 190 H (75-99) mg/dL Calcium (8.4-10.2) mg/dL Phosphorus (2.5-4.5) mg/dL 09/10/18 09/10/18 09/10/18 Range/Units 13:04 14:06 15:07 RBC (3.80-5.40) m/uL Hgb (11.4-16.0) gm/dL Plt Count (150-450) k/uL Lymphocytes # (1.0-4.8) k/uL Chloride (98-107) mmol/L Carbon Dioxide (22-30) mmol/L BUN (7-17) mg/dL Glucose (74-99) mg/dL POC Glucose (mg/dL) 219 H 239 H 168 H (75-99) mg/dL Calcium (8.4-10.2) mg/dL Phosphorus (2.5-4.5) mg/dL 09/10/18 09/10/18 09/10/18 Range/Units 17:06 18:08 19:06 RBC (3.80-5.40) m/uL Hgb (11.4-16.0) gm/dL Plt Count (150-450) k/uL Lymphocytes # (1.0-4.8) k/uL Chloride (98-107) mmol/L Carbon Dioxide (22-30) mmol/L BUN (7-17) mg/dL Glucose (74-99) mg/dL POC Glucose (mg/dL) 169 H 147 H 151 H (75-99) mg/dL Calcium (8.4-10.2) mg/dL Phosphorus (2.5-4.5) mg/dL Microbiology - Last 24 Hours (Table) 09/05/18 17:45 Blood Culture - Preliminary Blood No Growth after 96 hours 09/05/18 17:35 Blood Culture - Preliminary Blood No Growth after 96 hours Assessment and Plan (1) Acute respiratory failure with hypoxia Narrative/Plan: Requiring intubation Current Visit: Yes Status: Acute Code(s): J96.01 - ACUTE RESPIRATORY FAILURE WITH HYPOXIA SNOMED Code(s): 72705165 (2) Acute renal failure Current Visit: Yes Status: Acute Code(s): N17.9 - ACUTE KIDNEY FAILURE, UNSPECIFIED SNOMED Code(s): 40056302 (3) DKA (diabetic ketoacidoses) Current Visit: Yes Status: Acute Code(s): E13.10 - OTH DIABETES MELLITUS WITH KETOACIDOSIS WITHOUT COMA SNOMED Code(s): 844080470 (4) Hyperkalemia Current Visit: Yes Status: Acute Code(s): E87.5 - HYPERKALEMIA SNOMED Code(s): 90057298 (5) Pneumonia Current Visit: Yes Status: Acute Code(s): J18.9 - PNEUMONIA, UNSPECIFIED ORGANISM SNOMED Code(s): 139064845 (6) Sepsis Current Visit: Yes Status: Acute Code(s): A41.9 - SEPSIS, UNSPECIFIED ORGANISM SNOMED Code(s): 42940512 (7) Secondary diabetes with peripheral neuropathy Current Visit: Yes Status: Acute Code(s): E13.42 - OTH DIABETES MELLITUS WITH DIABETIC POLYNEUROPATHY SNOMED Code(s): 4575332 Plan: Continue cardiopulmonary support. Continue ICU pulmonary critical care management. DVT prophylaxis in place patient continues on pressors for blood pressure support. Continue to follow patient's condition. we'll continue to assess neurological function is patient wakes upand gets more alert.
[2018-09-10 20:34] LABS: Glucose,Whole Blood 116 mg/dL (75-99)
[2018-09-10 21:09] LABS: Glucose,Whole Blood 120 mg/dL (75-99)
[2018-09-10] MEDS ORDERED: FUROSEMIDE 10 MG/ML 2 ML VIAL IV ONE (21:57)
[2018-09-10 22:07] LABS: Glucose,Whole Blood 159 mg/dL (75-99)
[2018-09-10 23:05] LABS: Glucose,Whole Blood 186 mg/dL (75-99)
[2018-09-10 23:50] LABS: Glucose,Whole Blood 155 mg/dL (75-99)
[2018-09-11] MEDS: D5-0.45% NACL WITH KCL 20MEQ/L 1,000 ML IV SCH ×2 (00:41→06:42)
[2018-09-11 01:00] LABS: Glucose,Whole Blood 132 mg/dL (75-99)
[2018-09-11 02:00] LABS: Glucose,Whole Blood 124 mg/dL (75-99)
[2018-09-11 03:12] LABS: Glucose,Whole Blood 169 mg/dL (75-99)
[2018-09-11 04:08] LABS: Glucose,Whole Blood 180 mg/dL (75-99)
[2018-09-11 04:18] LABS: Basophils # (A) 0.1 k/uL (0-0.2); Basophils % (A) 1 %; Eosinophils # (A) 0.1 k/uL (0-0.7); Eosinophils % (A) 1 %; HCT 35.8 % (34.0-46.0); HGB 11.5 gm/dL (11.4-16.0); Lymphocytes # (A) 1.3 k/uL (1.0-4.8); Lymphocytes % (A) 12 %; MCH 31.2 pg (25.0-35.0); MCV 97.5 fL (80.0-100.0); Mean Platelet Volume 9.4; Monocytes # (A) 0.8 k/uL (0-1.0); Monocytes % (A) 8 %; Neutrophils # (A) 7.7 k/uL (1.3-7.7); Neutrophils % (A) 76 %; RBC 3.67 m/uL (3.80-5.40); RDW 14.2 % (11.5-15.5); WBC 10.2 k/uL (3.8-10.6)
[2018-09-11 04:22] LABS: Platelet Count 122 k/uL (150-450)
[2018-09-11 04:58] LABS: Anion Gap 8 mmol/L; Blood Urea Nitrogen 23 mg/dL (7-17); Calcium 8.1 mg/dL (8.4-10.2); Carbon Dioxide 20 mmol/L (22-30); Chloride 115 mmol/L (98-107); Glucose 186 mg/dL (74-99); Magnesium 1.9 mg/dL (1.6-2.3); Phosphorus 2.1 mg/dL (2.5-4.5); Potassium 2.9 mmol/L (3.5-5.1); Sodium 143 mmol/L (137-145)
[2018-09-11 04:59] LABS: Glucose,Whole Blood 146 mg/dL (75-99)
[2018-09-11] MEDS ORDERED: Potassium Replacement Protocol 1 EACH MISC MISCELLANE PRN (05:03)
[2018-09-11] MEDS: POTASSIUM CHLORIDE ER 20 MEQ TAB.ER PO SCH ×3 (05:17→09:14)
[2018-09-11] MEDS: MAGNESIUM SULFATE-D5W PMX 1 GM in DEXTROSE/WATER 1 100ML.BAG IVPB SCH ×2 (05:17→06:42)
[2018-09-11 05:27] LABS: INR 1.1 (<1.2); Partial Thromboplastin Time 23.4 sec (22.0-30.0); Prothrombin Time 11.5 sec (9.0-12.0)
[2018-09-11] MEDS ORDERED: POTASSIUM PHOSPHATE 10 MMOL in SODIUM CHLORIDE 0.9% 100 ML IV ONE (05:30)
[2018-09-11 06:14] LABS: Glucose,Whole Blood 104 mg/dL (75-99)
[2018-09-11] MEDS: LEVOTHYROXINE 125 MCG TAB PO SCH (06:42)
--- NOTE | 2018-09-11 06:45 | XR ---
EXAMINATION TYPE: XR chest 1V portable DATE OF EXAM: 09/11/2018 CLINICAL HISTORY: Difficulty breathing progress study. TECHNIQUE: Single AP portable upright view of the chest is obtained. COMPARISON: Chest x-ray from one day earlier and older studies. FINDINGS: Left-sided subclavian central venous catheter is stable in appearance. Cardiac silhouette size is stable and mildly enlarged. There is central vascular congestion with small bilateral pleural effusions. Central vascular congestion may be slightly more prominent. No pneumothorax is seen. Unde rlying scoliosis is noted. IMPRESSION: Cardiomegaly with small bilateral pleural effusions redemonstrated. Increasing central va scular congestion is felt present bilaterally. Correlate for worsening CHF exacerbation.
[2018-09-11 07:03] LABS: Glucose,Whole Blood 113 mg/dL (75-99)
[2018-09-11] MEDS: IPRATROPIUM-ALBUTEROL 3 ML NEB INHALATION SCH ×4 (07:52→20:35)
[2018-09-11 08:25] LABS: Glucose,Whole Blood 156 mg/dL (75-99)
[2018-09-11] MEDS ORDERED: LEVOTHYROXINE 50 MCG TAB PO SCH (09:00)
[2018-09-11] MEDS: FLUoxetine HCL 20 MG CAP PO SCH (09:13)
[2018-09-11 09:14] LABS: Glucose,Whole Blood 161 mg/dL (75-99)
[2018-09-11] MEDS: PIPERACILLIN-TAZOBACTAM 3.375 GM in SODIUM CHLORIDE 0.9% 100 ML IVPB SCH ×2 (09:14→16:31)
[2018-09-11] MEDS: PANTOPRAZOLE 40 MG/10 ML VIAL IV SCH (09:14)
[2018-09-11] MEDS: METOPROLOL TARTRATE 12.5 MG TAB PO SCH (09:14)
--- NOTE | 2018-09-11 09:38 | PN ---
PROGRESS NOTE Mrs. Norwood came in with DKA and [id number] UT. She has been extubated, seems to be doing better. Hemodynamically fair with blood pressure in the 90s. I placed her on a small dose of beta breanna, but we will hold it if the pressure is less than 100. S1, S2 heard normally, short systolic murmur noted. Lungs reveal bilateral air entry. Abdomen and lower extremity exam unchanged. From a cardiac way, she is stable. Echo revealed preserved systolic function. I will see her as needed. Thank you very much for the consult. MMODL / IJN: [id number] /
[2018-09-11 10:06] LABS: Glucose,Whole Blood 229 mg/dL (75-99)
[2018-09-11] MEDS ORDERED: FUROSEMIDE 10 MG/ML 2 ML VIAL IV ONE (12:00)
[2018-09-11 12:21] LABS: Glucose,Whole Blood 213 mg/dL (75-99)
[2018-09-11] MEDS: INSULIN ASPART (NovoLOG) 100 UNIT/ML VIAL SQ SCH ×5 (12:35→21:28)
[2018-09-11] MEDS ORDERED: POTASSIUM CHLORIDE ER 20 MEQ TAB.ER PO SCH (13:00)
[2018-09-11 14:13] LABS: Glucose,Whole Blood 175 mg/dL (75-99)
--- NOTE | 2018-09-11 16:12 | P.PN ---
Subjective Progress Note Date: 09/11/18 This is a 68-year-old female patient remains intubated on mechanical ventilator. The patient presented to the hospital for bilateral pneumonia, DKA, severe metabolic acidosis, acute kidney injury and cyanosis. The patient this morning he remains sedated and calm and comfortable. The patient remains on Diprivan and the patient is synchronous with the mechanical ventilator. Diprivan is running at 50 g per KG per minute. The patient remains on assist control mode of ventilation with a tidal volume of 400 with an FiO2 of 40% and PEEP of 5 mg of 26.. The blood gases from today showed a pH of 7.39 with a pCO2 of 36 and pO2 118 on FiO2 of 50%. The patient has recovered from her DKA. Blood sugars under better control. The anion gap metabolic acidosis is recovered and normalized. White cell count is improving. Acute kidney injury is also improving and the creatinine is down to 1.9. The patient is currently on IV Zosyn as an empiric antibiotic coverage. Blood cultures been negative. Pre ssors are still in the form of norepinephrine infusion at running at 20 g per KG per minute. The patient is on D5 half-normal saline at the rate of 75 mL an hour. Insulin drip was restarted. ICU protocol to control the blood sugar. Patient is on DVT and GI prophylaxis. Family is at the bedside. Echocardiogram was done and the patient is a preserved LV function without any significant abnormalities noted. The chest x-ray from today shows. Is in a good location. The patient has a left subclavian triple-lumen catheter in place. There is some patchy retrocardiac opacity seen. Otherwise no other significant abnormalities noted. On today's evaluation of 09/08/2018 I'm seeing this patient for a follow-up. The patient is intubated on a mechanical ventilator. The patient remains on a same vent setting and the patient is on a assist-control mode with a tidal volume of 400 and FiO2 of 40% with a PEEP of 8 and a rate of 26. The blood gases from this morning showed a pH of 7.36 with a pCO2 of 38 and pO2 126. Based on this, I lowered the PEEP down to 5. Chest x-ray shows some limited bibasilar pulmonary infiltrates. There is a left IJ central venous catheter tip being in the right atrium. The patient is sedated with Diprivan earlier this morning at a rate of 50 mg per KG per minute. Earlier this was the patient was still hypotensive on 15-20 mics of levo fed per minutes. The patient was suspected to further IV fluids. She was given 2 L of bolus as the patient's CVP was low at around 6. Nevertheless, despite this, she continued to require pressors. CVP remains low. Echo showed a preserved LV function and there is no valvular abnormalities. The patient will be given 2 additional liters of bolus IV fluids today. The patient was started on vasopressin. Serum cortisol level was 14. Adrenal insufficiency felt to be less likely. We'll supplement this patient with stress dose hydrocortisone based on the ongoing hypotension and hemodynamic instability. Nevertheless, despite all this, the patient's anion gap is closed and the patient is on insulin drip for blood sugar control. The white cell count is down to 10.8. Renal function continues to improve and the creatinine is down to 1.01. The patient's blood cultures of been negative. The patient remains on IV Zosyn as an empiric antibiotic coverage. After stabilizing the hemodynamics, intensive patient some sedation holiday and taken off the Diprivan. He she remains nothing by mouth for now. IV fluids in the form of D5 half-normal saline at the rate of 75 mL an hour. On today's evaluation of the 22,009 Seeing this patient for a follow-up. Earlier this morning the patient was still sedated and the mechanical ventilator. Things have improved considerably on this patient. Following initi ation of vasopressin physiologic dose I was able to wean this patient off the levo fed and discontinue. We gradually improved her volume status. We gave her several bolus of IV fluids and the patient is at least 10 L positive in terms of her net fluid balance. The CVP has built up gradually to 13. Earlier this morning she was found to have some diminished urine output. I Did Fluids to KVO and I Also Give the Patient 20 Mg of IV Lasix Which Helped Her Significantly with a Urine Output. Meanwhile, the patient was on sedation. I discontinued the propofol and we noted gradual recovery of an underlying mental status. At the later stage she was awake and alert. She was able to give us a spontaneous breathing trial and after she demonstrated an adequate weaning parameters. There is spontaneous breathing trial was given with a pressure support of 5 and a PEEP of 5 and a blood gas was checked and following that the patient was extubated to a 4 L of oxygen by nasal cannula. She is doing very well. She is awake and alert and communicating and she is hemodynamically stable at this point in time. Chest x- ray from today shows some limited bibasilar pulmonary infiltrates related to her previous or recent pneumonia. She remains on IV Zosyn. She remains on insulin drip. D5 water half-normal saline was cut down to KVO. Enteral feeding was also discontinued and the NG tube was removed. Current insulin drip is running at 8 units an hour for adequate blood sugar control. No other complaints otherwise for now. She seems to be alert and awake and communicating. She is moving all 4 extremity is without any limitation. Her white cell count is improved. Her renal function is also improved and normalized and creatinine is down to 0.67. The patient has developed some melanotic stools and a hemoglobin is stable at 11.7. She remains on IV Protonix. Also, noted a drop in her platelet count, down to 70,000 and the patient was taken off the subcu heparin and she will given SCDs. She remains on IV Zosyn. Vasopressin was also weaned off and discontinued. On today's evaluation 09/10/2018, the patient remains off the mechanical ventilator. She is speaking up a few words and she is very much alert and awake and she follows commands and answers questions appropriately although with very short sentences. She is profoundly weak. Physical therapy has been consulted. The patient barely able to raise her arms against gravity. Otherwise, her pulmonary status is stable. No respiratory difficulties. No reported cough sputum production chest that is so wheezing. Her chest x-ray shows no acute abnormalities. It shows some stable interstitial prominence and small left- sided pleural effusion and some atelectatic changes in lung bases bilaterally. The patient on is currently on KVO IV fluids. The patient is on insulin drip at 8 units an hour. The patient will be having a swallow evaluation with advanced diet if she is able to swallow appropriately. Currently, she has no nausea. No vomiting. Abdominal pain. No abdominal distention. Her blood sugars are under adequate control for now. In terms of hemodynamics, she is off the pressors and the patient's maintaining her on blood pressure without any major difficulties. She was given a dose of Lasix yesterday 20 mg IV push and she developed significant improvement in the urine output. This morning, she was started on low-dose metoprolol 12.5 mg by mouth daily. She is still maintaining her on bl ood pressure. No significant tachycardias. The beta blockers was started by cardiology as the patient had a component of non-ST elevation myocardial infarction time of admission. She remains on IV Zosyn. She is on IV Protonix. The white cell count is down to 7.7. Renal function is normalized. No other significant events otherwise for now. on 09/11/2018, the patient remains extubated and she is calm and comfortable on oxygen by nasal cannula. No cervical respiratory distress. Active issue for now is her profound weakness. As mentioned yesterday, the patient was having difficulties mobility. In fact she is unable to get out of the bed. Physical therapy is on the case. Legs are quite weak and she is able to move her toes and bend her knees. She is also able to raise her arms. She has an adequate cough. She is able to swallow and her diet will be gradually advanced. She rem ains on insulin drip at 8 units an hour and the patient will be switched to long-acting insulin with Lantus and I would suggest starting an in 40 U which is probably half of the dose that she was taking at home. She is having adequate urine output. the patient was started on metoprolol for rate control. The patient will also benefit from additional dose of Lasix under the chest x-ray showing pulmonary vessel congestion and his same time the patient continues to have some increased fluid both in upper and lower extremity. She is slightly edematous. She is on no pressors for now. No altered mentation. She seems to be more appropriate. She seems to be moving all 4 extremities without any limitation despite her weakness. Denies having any chest pain. No headaches. No pleurisy. No hemoptysis. No aspiration. No cardiac arrhythmias. No other significant events otherwise for now. Objective - Vital Signs Vital signs: Vital Signs Temp 98.2 F 09/11/18 12:00 Pulse 83 09/11/18 15:40 Resp 28 H 09/11/18 15:00 BP 101/48 09/11/18 14:00 Pulse Ox 99 09/11/18 15:00 Intake & Output 09/10/18 09/11/18 09/11/18 18:59 06:59 18:59 Intake Total 796.243 608.850 332.465 Output Total 495 1680 740 Balance 301.243 -1071.150 -407.535 Weight 123.3 kg 123.5 kg Intake: IV 700 540 320 D5-0.45% NaCl with KCl 100 240 120 20Meq/l 1,000 ml @ 20 mls /hr IV .Q24H [facility] Rx#: [id number] Magnesium Sulfate-D5w Pmx 100 1 gm In Dextrose/Water 1 100ml.bag @ 100 mls/hr IVPB Q1H [facility] Rx#: [id number] Magnesium Sulfate-D5w Pmx 100 100 1 gm In Dextrose/Water 1 100ml.bag @ 100 mls/hr IVPB Q1H [facility] Rx#: [id number] Piperacillin-Tazobactam 3 200 100 100 .375 gm In Sodium Chloride 0.9% 100 ml @ 25 mls/hr IVPB Q8HR [facility] Rx# :[id number] Potassium Chloride 20 meq 100 In Water For Injection 1 100ml.bag @ 50 mls/hr IVPB Q2H [facility] Rx#: [id number] Potassium Phosphate 10 100 mmol In Sodium Chloride 0 .9% 100 ml @ 50 mls/hr IV ONCE ONE Rx#:[id number] Potassium Phosphate 10 200 mmol In Sodium Chloride 0 .9% 100 ml @ 50 mls/hr IV Q2H [facility] Rx#:[id number] Intake, IV Titration 96.243 68.850 12.465 Amount Insulin Regular 100 unit 96.243 68.850 12.465 In Sodium Chloride 0.9% 100 ml @ Per Protocol IV .Q0M [facility] Rx#:[id number] Output: Urine 495 1680 740 Other: Voiding Method Indwelling Catheter Indwelling Catheter Indwelling Catheter # Bowel Movements 1 1 ABP, PAP, CO, CI - Last Documented Arterial Blood Pressure 120/58 - Exam Gen. appearance extubated awake and alert on 4 L of oxygen by nasal cannula. Head exam was generally normal. There was no scleral icterus or corneal arcus. Mucous membranes were moist. Neck was supple and without jugular venous distension, thyromegaly, or carotid bruits. Carotids were easily palpable bilaterally. There was no adenopathy. Lungs were clear to auscultation and percussion, and with normal diaphragmatic excursion. No wheezes or rales were noted. Cardiac exam revealed the PMI to be normally situated and sized. The rhythm was regular and no extrasystoles were noted during several minutes of auscultation. The first and second heart sounds were normal and physiologic splitting of the second heart sound was noted. There were no murmurs, rubs, clicks, or gallops. Abdominal exam revealed normal bowel sounds. The abdomen was soft, non-tender, a nd without masses, organomegaly, or appreciable enlargement of the abdominal aorta. Examination of the extremities revealed easily palpable radial, femoral and pedal pulses. There was no cyanosis, clubbing or edema. Examination of the skin revealed no evidence of significant rashes, suspicious appearing nevi or other concerning lesions. The patient triple-lumen catheter in the left IJ Neurologically awake and alert and there is no focal neurological deficits. The patient has significant motor weakness both in the upper and lower extremities. She is barely able to raise her arms against gravity. She has a decent cough. No facial weakness. She is following commands and answering questions appropriately. Psychiatric to the patient has no delusions or hallucinations. - Labs CBC & Chem 7: 09/11/18 04:00 09/11/18 12:15 Labs: Abnormal Lab Results - Last 24 Hours (Table) 09/10/18 09/10/18 09/10/18 Range/Units 17:06 18:08 19:06 RBC (3.80-5.40) m/uL Plt Count (150-450) k/uL Potassium (3.5-5.1) mmol/L Chloride (98-107) mmol/L Carbon Dioxide (22-30) mmol/L BUN (7-17) mg/dL Glucose (74-99) mg/dL POC Glucose (mg/dL) 169 H 147 H 151 H (75-99) mg/dL Calcium (8.4-10.2) mg/dL Phosphorus (2.5-4.5) mg/dL 09/10/18 09/10/18 09/10/18 Range/Units 20:32 21:07 22:05 RBC (3.80-5.40) m/uL Plt Count (150-450) k/uL Potassium (3.5-5.1) mmol/L Chloride (98-107) mmol/L Carbon Dioxide (22-30) mmol/L BUN (7-17) mg/dL Glucose (74-99) mg/dL POC Glucose (mg/dL) 116 H 120 H 159 H (75-99) mg/dL Calcium (8.4-10.2) mg/dL Phosphorus (2.5-4.5) mg/dL 09/10/18 09/10/18 09/11/18 Range/Units 23:02 23:49 00:58 RBC (3.80-5.40) m/uL Plt Count (150-450) k/uL Potassium (3.5-5.1) mmol/L Chloride (98-107) mmol/L Carbon Dioxide (22-30) mmol/L BUN (7-17) mg/dL Glucose (74-99) mg/dL POC Glucose (mg/dL) 186 H 155 H 132 H (75-99) mg/dL Calcium (8.4-10.2) mg/dL Phosphorus (2.5-4.5) mg/dL 09/11/18 09/11/18 09/11/18 Range/Units 01:58 03:10 04:00 RBC 3.67 L (3.80-5.40) m/uL Plt Count 122 L D (150-450) k/uL Potassium (3.5-5.1) mmol/L Chloride (98-107) mmol/L Carbon Dioxide (22-30) mmol/L BUN (7-17) mg/dL Glucose (74-99) mg/dL POC Glucose (mg/dL) 124 H 169 H (75-99) mg/dL Calcium (8.4-10.2) mg/dL Phosphorus (2.5-4.5) mg/dL 09/11/18 09/11/18 09/11/18 Range/Units 04:00 04:06 04:58 RBC (3.80-5.40) m/uL Plt Count (150-450) k/uL Potassium 2.9 L (3.5-5.1) mmol/L Chloride 115 H (98-107) mmol/L Carbon Dioxide 20 L (22-30) mmol/L BUN 23 H (7-17) mg/dL Glucose 186 H (74-99) mg/dL POC Glucose (mg/dL) 180 H 146 H (75-99) mg/dL Calcium 8.1 L (8.4-10.2) mg/dL Phosphorus 2.1 L (2.5-4.5) mg/dL 09/11/18 09/11/18 09/11/18 Range/Units 06:12 07:02 08:24 RBC (3.80-5.40) m/uL Plt Count (150-450) k/uL Potassium (3.5-5.1) mmol/L Chloride (98-107) mmol/L Carbon Dioxide (22-30) mmol/L BUN (7-17) mg/dL Glucose (74-99) mg/dL POC Glucose (mg/dL) 104 H 113 H 156 H (75-99) mg/dL Calcium (8.4-10.2) mg/dL Phosphorus (2.5-4.5) mg/dL 09/11/18 09/11/18 09/11/18 Range/Units 09:13 10:04 12:19 RBC (3.80-5.40) m/uL Plt Count (150-450) k/uL Potassium (3.5-5.1) mmol/L Chloride (98-107) mmol/L Carbon Dioxide (22-30) mmol/L BUN (7-17) mg/dL Glucose (74-99) mg/dL POC Glucose (mg/dL) 161 H 229 H 213 H (75-99) mg/dL Calcium (8.4-10.2) mg/dL Phosphorus (2.5-4.5) mg/dL 09/11/18 Range/Units 14:12 RBC (3.80-5.40) m/uL Plt Count (150-450) k/uL Potassium (3.5-5.1) mmol/L Chloride (98-107) mmol/L Carbon Dioxide (22-30) mmol/L BUN (7-17) mg/dL Glucose (74-99) mg/dL POC Glucose (mg/dL) 175 H (75-99) mg/dL Calcium (8.4-10.2) mg/dL Phosphorus (2.5-4.5) mg/dL Microbiology - Last 24 Hours (Table) 09/05/18 17:45 Blood Culture - Preliminary Blood No Growth after 120 hours 09/05/18 17:35 Blood Culture - Preliminary Blood No Growth after 120 hours Assessment and Plan Plan: Assessment 1 acute septic shock likely secondary to underlying bilateral pneumonia , recovered, currently on IV Zosyn 2 acute DKA with severe anion gap metabolic acidosis, recovered and the patient is currently on 8 units of insulin MR recovered and the patient will be switched to long-acting insulin 3 hypotension secondary to sepsis , recovered 4 diabetes mellitus type 1 5 history of hypertension 6 acute kidney injury improving and the creatinine is down, and the creatinine is normalized 7 leukocytosis, recovered 8 severe metabolic acidosis, recovered 9 peripheral 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 Underlying coronary artery disease needs to be considered, consider acute non-STEMI.. Nevertheless, this troponin leak could be related to above-mentioned events and hypotension. The patient was started on low-dose beta breanna 12.5 mg of metoprolol daily basis 13 thrombocytopenia, possibly related to sepsis versus heparin and heparin subcu was discontinued, and the platelet count today's 81 and is improved compared to yesterday 14 suspected GI bleed, stable hemoglobin with an hemoglobin is at 11.2 Plan going to switch this patient to Lantus insulin starting those will be 40 units Levemir along with scattered coverage and will discontinue the insulin drip. Continued IV Zosyn. Monitor the blood pressure and administered although related to the patient is able to handle diuretics as there are signs of some fluid overload. Continue metoprolol 12.5 mg by mouth daily. Aggressive physical therapy. Advance diet. We'll continue to follow.
[2018-09-11] MEDS: NOREPINEPHRINE 32 MG in SODIUM CHLORIDE 0.9% 218 ML IV SCH (17:25)
[2018-09-11 17:27] LABS: Glucose,Whole Blood 191 mg/dL (75-99)
[2018-09-11 20:38] LABS: Glucose,Whole Blood 218 mg/dL (75-99)
[2018-09-11 20:58] LABS: Glucose,Whole Blood 234 mg/dL (75-99)
[2018-09-11] MEDS ORDERED: INSULIN DETEMIR (LEVEMIR) 100 UNIT/ML SYR SQ SCH (21:00)
[2018-09-11] MEDS ORDERED: POTASSIUM CHLORIDE ER 20 MEQ TAB.ER PO STA (21:33)
--- NOTE | 2018-09-11 23:42 | P.PN ---
Subjective Progress Note Date: 09/11/18 is a pleasant 68-year-old white female seen in the ICU this morning. She is moving her extremities much more freely. And she seems to be improving from her hypoxia with intubation she started move her upper extremities after beingimmobilized for a few days and swollen she has no specific complaints Objective - Vital Signs Vital signs: Vital Signs Temp 98.0 F 09/11/18 20:00 Pulse 93 09/11/18 22:00 Resp 20 09/11/18 22:00 BP 107/47 09/11/18 22:00 Pulse Ox 98 09/11/18 22:00 Intake & Output 09/11/18 09/11/18 09/12/18 06:59 18:59 06:59 Intake Total 608.850 452.465 80 Output Total 1680 1280 225 Balance -1071.150 -827.535 -145 Weight 123.5 kg Intake: IV 540 440 80 D5-0.45% NaCl with KCl 240 140 80 20Meq/l 1,000 ml @ 20 mls /hr IV .Q24H [facility] Rx#: [id number] Magnesium Sulfate-D5w Pmx 100 100 1 gm In Dextrose/Water 1 100ml.bag @ 100 mls/hr IVPB Q1H [facility] Rx#: [id number] Piperacillin-Tazobactam 3 100 200 .375 gm In Sodium Chloride 0.9% 100 ml @ 25 mls/hr IVPB Q8HR [facility] Rx# :[id number] Potassium Phosphate 10 100 mmol In Sodium Chloride 0 .9% 100 ml @ 50 mls/hr IV ONCE ONE Rx#:[id number] Intake, IV Titration 68.850 12.465 Amount Insulin Regular 100 unit 68.850 12.465 In Sodium Chloride 0.9% 100 ml @ Per Protocol IV .Q0M [facility] Rx#:[id number] Output: Urine 1680 1280 225 Other: Voiding Method Indwelling Catheter Indwelling Catheter Indwelling Catheter # Bowel Movements 1 1 ABP, PAP, CO, CI - Last Documented Arterial Blood Pressure 91/43 - Exam PHYSICAL EXAMINATION: Patient is currently sedated and intubated. HEENT: Normocephalic. Neck is supple. Pupils reactive. Nostrils clear. Oral cavity is moist. Ears reveal no drainage. Neck reveals no JVD, carotid bruits, or thyromegaly. CHEST EXAMINATION: Trachea is central. Endotracheal tube in place. Symmetrical expansion. Bilateral diffuse rhonchi/coarse breath sounds. CARDIAC: Normal S1, S2 with no gallops. No murmurs ABDOMEN: Soft. Bowel sounds present. No organomegaly. No abdominal bruits. Extremities: reveal some pretibial edema bilateral. No clubbing or cyanosis feet with deformities and evidence of fungal nails Neurologically . Currently sedated. No gross focal deficits noted Skin: No rash or skin lesions. Psychiatric: Could not be assessed at this time. Musculoskeletal: No joint swelling or deformity. - Labs CBC & Chem 7: 09/11/18 04:00 09/11/18 18:45 Labs: Abnormal Lab Results - Last 24 Hours (Table) 09/10/18 09/11/18 09/11/18 Range/Units 23:49 00:58 01:58 RBC (3.80-5.40) m/uL Plt Count (150-450) k/uL Potassium (3.5-5.1) mmol/L Chloride (98-107) mmol/L Carbon Dioxide (22-30) mmol/L BUN (7-17) mg/dL Glucose (74-99) mg/dL POC Glucose (mg/dL) 155 H 132 H 124 H (75-99) mg/dL Calcium (8.4-10.2) mg/dL Phosphorus (2.5-4.5) mg/dL 09/11/18 09/11/18 09/11/18 Range/Units 03:10 04:00 04:00 RBC 3.67 L (3.80-5.40) m/uL Plt Count 122 L D (150-450) k/uL Potassium 2.9 L (3.5-5.1) mmol/L Chloride 115 H (98-107) mmol/L Carbon Dioxide 20 L (22-30) mmol/L BUN 23 H (7-17) mg/dL Glucose 186 H (74-99) mg/dL POC Glucose (mg/dL) 169 H (75-99) mg/dL Calcium 8.1 L (8.4-10.2) mg/dL Phosphorus 2.1 L (2.5-4.5) mg/dL 09/11/18 09/11/18 09/11/18 Range/Units 04:06 04:58 06:12 RBC (3.80-5.40) m/uL Plt Count (150-450) k/uL Potassium (3.5-5.1) mmol/L Chloride (98-107) mmol/L Carbon Dioxide (22-30) mmol/L BUN (7-17) mg/dL Glucose (74-99) mg/dL POC Glucose (mg/dL) 180 H 146 H 104 H (75-99) mg/dL Calcium (8.4-10.2) mg/dL Phosphorus (2.5-4.5) mg/dL 09/11/18 09/11/18 09/11/18 Range/Units 07:02 08:24 09:13 RBC (3.80-5.40) m/uL Plt Count (150-450) k/uL Potassium (3.5-5.1) mmol/L Chloride (98-107) mmol/L Carbon Dioxide (22-30) mmol/L BUN (7-17) mg/dL Glucose (74-99) mg/dL POC Glucose (mg/dL) 113 H 156 H 161 H (75-99) mg/dL Calcium (8.4-10.2) mg/dL Phosphorus (2.5-4.5) mg/dL 09/11/18 09/11/18 09/11/18 Range/Units 10:04 12:19 14:12 RBC (3.80-5.40) m/uL Plt Count (150-450) k/uL Potassium (3.5-5.1) mmol/L Chloride (98-107) mmol/L Carbon Dioxide (22-30) mmol/L BUN (7-17) mg/dL Glucose (74-99) mg/dL POC Glucose (mg/dL) 229 H 213 H 175 H (75-99) mg/dL Calcium (8.4-10.2) mg/dL Phosphorus (2.5-4.5) mg/dL 09/11/18 09/11/18 09/11/18 Range/Units 17:26 20:36 20:57 RBC (3.80-5.40) m/uL Plt Count (150-450) k/uL Potassium (3.5-5.1) mmol/L Chloride (98-107) mmol/L Carbon Dioxide (22-30) mmol/L BUN (7-17) mg/dL Glucose (74-99) mg/dL POC Glucose (mg/dL) 191 H 218 H 234 H (75-99) mg/dL Calcium (8.4-10.2) mg/dL Phosphorus (2.5-4.5) mg/dL Microbiology - Last 24 Hours (Table) 09/05/18 17:45 Blood Culture - Final Blood No Growth after 144 hours 09/05/18 17:35 Blood Culture - Final Blood No Growth after 144 hours Assessment and Plan (1) Acute respiratory failure with hypoxia Narrative/Plan: Requiring intubation Current Visit: Yes Status: Acute Code(s): J96.01 - ACUTE RESPIRATORY FAILURE WITH HYPOXIA SNOMED Code(s): 79676027 (2) Acute renal failure Current Visit: Yes Status: Acute Code(s): N17.9 - ACUTE KIDNEY FAILURE, UNSPECIFIED SNOMED Code(s): 00888797 (3) DKA (diabetic ketoacidoses) Current Visit: Yes Status: Acute Code(s): E13.10 - OTH DIABETES MELLITUS WITH KETOACIDOSIS WITHOUT COMA SNOMED Code(s): 736878867 (4) Hyperkalemia Current Visit: Yes Status: Acute Code(s): E87.5 - HYPERKALEMIA SNOMED Code(s): 48254132 (5) Pneumonia Current Visit: Yes Status: Acute Code(s): J18.9 - PNEUMONIA, UNSPECIFIED ORGANISM SNOMED Code(s): 786896456 (6) Sepsis Current Visit: Yes Status: Acute Code(s): A41.9 - SEPSIS, UNSPECIFIED ORGANISM SNOMED Code(s): 75115440 (7) Secondary diabetes with peripheral neuropathy Current Visit: Yes Status: Acute Code(s): E13.42 - OTH DIABETES MELLITUS WITH DIABETIC POLYNEUROPATHY SNOMED Code(s): 0344557 Plan: Continue cardiopulmonary support. Continue ICU pulmonary critical care management. DVT prophylaxis in place patient continues on pressors for blood pressure support. Continue to follow patient's condition. we'll continue to as sess neurological function is patient wakes upand gets more alert.[facility] hospitalists group to follow patient this weekend
[2018-09-12] MEDS: PIPERACILLIN-TAZOBACTAM 3.375 GM in SODIUM CHLORIDE 0.9% 100 ML IVPB SCH ×3 (00:46→18:11)
[2018-09-12 01:39] LABS: Glucose,Whole Blood 131 mg/dL (75-99)
[2018-09-12] MEDS: D5-0.45% NACL WITH KCL 20MEQ/L 1,000 ML IV SCH (03:57)
[2018-09-12 06:05] LABS: Basophils # (A) 0.1 k/uL (0-0.2); Basophils % (A) 1 %; Eosinophils # (A) 0.5 k/uL (0-0.7); Eosinophils % (A) 5 %; HCT 36.7 % (34.0-46.0); HGB 11.6 gm/dL (11.4-16.0); Lymphocytes % (A) 19 %; MCH 31.1 pg (25.0-35.0); MCHC 31.7 g/dL (31.0-37.0); MCV 98.4 fL (80.0-100.0); Mean Platelet Volume 7.9; Monocytes # (A) 1.1 k/uL (0-1.0); Monocytes % (A) 11 %; Neutrophils # (A) 6.6 k/uL (1.3-7.7); Neutrophils % (A) 63 %; Platelet Count 146 k/uL (150-450); RBC 3.73 m/uL (3.80-5.40); RDW 14.8 % (11.5-15.5); WBC 10.5 k/uL (3.8-10.6)
[2018-09-12 06:17] LABS: Anion Gap 5 mmol/L; Blood Urea Nitrogen 21 mg/dL (7-17); Calcium 8.3 mg/dL (8.4-10.2); Carbon Dioxide 24 mmol/L (22-30); Chloride 115 mmol/L (98-107); Magnesium 1.8 mg/dL (1.6-2.3); Phosphorus 2.3 mg/dL (2.5-4.5); Potassium 3.5 mmol/L (3.5-5.1); Sodium 144 mmol/L (137-145)
[2018-09-12] MEDS ORDERED: DEXTROSE 50%-WATER 50 ML SYRINGE IVP STA (07:08)
[2018-09-12] MEDS: INSULIN ASPART (NovoLOG) 100 UNIT/ML VIAL SQ SCH ×7 (07:25→20:43)
[2018-09-12 07:31] LABS: Glucose 48 mg/dL (74-99)
[2018-09-12] MEDS: LEVOTHYROXINE 125 MCG TAB PO SCH (07:35)
[2018-09-12 07:36] LABS: Glucose,Whole Blood 95 mg/dL (75-99)
[2018-09-12] MEDS: FLUoxetine HCL 20 MG CAP PO SCH (08:03)
[2018-09-12] MEDS: PANTOPRAZOLE 40 MG/10 ML VIAL IV SCH (08:03)
[2018-09-12] MEDS: METOPROLOL TARTRATE 12.5 MG TAB PO SCH (08:03)
[2018-09-12] MEDS: IPRATROPIUM-ALBUTEROL 3 ML NEB INHALATION SCH ×4 (08:06→19:43)
[2018-09-12 10:11] LABS: Glucose,Whole Blood 76 mg/dL (75-99)
--- NOTE | 2018-09-12 11:57 | P.PN ---
Subjective Progress Note Date: 09/12/18 Principal diagnosis: DKA Pneumonia Acute renal injury 68-year-old female patient remains intubated on mechanical ventilator. The patient presented to the hospital for bilateral pneumonia, DKA, severe metabolic acidosis, acute kidney injury and cyanosis. Objective - Vital Signs Vital signs: Vital Signs Temp 97.5 F L 09/12/18 08:00 Pulse 69 09/12/18 10:00 Resp 23 09/12/18 10:00 BP 123/99 09/12/18 10:00 Pulse Ox 100 09/12/18 10:00 Intake & Output 09/11/18 09/12/18 09/12/18 18:59 06:59 18:59 Intake Total 452.465 340 285 Output Total 1280 745 350 Balance -827.535 -405 -65 Weight 124.6 kg Intake: IV 440 240 135 D5-0.45% NaCl with KCl 140 240 60 20Meq/l 1,000 ml @ 20 mls /hr IV .Q24H [facility] Rx#: [id number] Magnesium Sulfate-D5w Pmx 100 1 gm In Dextrose/Water 1 100ml.bag @ 100 mls/hr IVPB Q1H [facility] Rx#: [id number] Piperacillin-Tazobactam 3 200 75 .375 gm In Sodium Chloride 0.9% 100 ml @ 25 mls/hr IVPB Q8HR [facility] Rx# :[id number] Intake, IV Titration 12.465 100 Amount Insulin Regular 100 unit 12.465 In Sodium Chloride 0.9% 100 ml @ Per Protocol IV .Q0M [facility] Rx#:[id number] Piperacillin-Tazobactam 3 100 .375 gm In Sodium Chloride 0.9% 100 ml @ 25 mls/hr IVPB Q8HR [facility] Rx# :[id number] Oral 150 Output: Urine 1280 745 350 Other: Voiding Method Indwelling Catheter Indwelling Catheter Indwelling Catheter # Bowel Movements 1 ABP, PAP, CO, CI - Last Documented Arterial Blood Pressure 149/67 - Exam Gen. appearance; awake and alert on 4 L of oxygen by nasal cannula. Head exam was generally normal. There was no scleral icterus or corneal arcus. Mucous membranes were moist. Neck was supple and without jugular venous distension, thyromegaly, or carotid bruits. Carotids were easily palpable bilaterally. There was no adenopathy. Lungs were clear to auscultation and percussion, and with normal diaphragmatic excursion. No wheezes or rales were noted. Cardiac exam revealed the PMI to be normally situated and sized. The rhythm was regular and no extrasystoles were noted during several minutes of auscultation. Abdominal exam revealed normal bowel sounds. The abdomen was soft, non-tender, and without masses, organomegaly, or appreciable enlargement of the abdominal aorta. Extremities revealed easily palpable radial, femoral and pedal pulses. There was no cyanosis, clubbing or edema. Skin revealed no evidence of significant rashes, suspicious appearing nevi or other concerning lesions. - Labs CBC & Chem 7: 09/12/18 05:45 09/12/18 05:45 Labs: Abnormal Lab Results - Last 24 Hours (Table) 09/11/18 09/11/18 09/11/18 Range/Units 12:19 14:12 17:26 RBC (3.80-5.40) m/uL Plt Count (150-450) k/uL Monocytes # (0-1.0) k/uL Chloride (98-107) mmol/L BUN (7-17) mg/dL Glucose (74-99) mg/dL POC Glucose (mg/dL) 213 H 175 H 191 H (75-99) mg/dL Calcium (8.4-10.2) mg/dL Phosphorus (2.5-4.5) mg/dL 09/11/18 09/11/18 09/12/18 Range/Units 20:36 20:57 01:27 RBC (3.80-5.40) m/uL Plt Count (150-450) k/uL Monocytes # (0-1.0) k/uL Chloride (98-107) mmol/L BUN (7-17) mg/dL Glucose (74-99) mg/dL POC Glucose (mg/dL) 218 H 234 H 131 H (75-99) mg/dL Calcium (8.4-10.2) mg/dL Phosphorus (2.5-4.5) mg/dL 09/12/18 09/12/18 Range/Units 05:45 05:45 RBC 3.73 L (3.80-5.40) m/uL Plt Count 146 L (150-450) k/uL Monocytes # 1.1 H (0-1.0) k/uL Chloride 115 H (98-107) mmol/L BUN 21 H (7-17) mg/dL Glucose 48 L* (74-99) mg/dL POC Glucose (mg/dL) (75-99) mg/dL Calcium 8.3 L (8.4-10.2) mg/dL Phosphorus 2.3 L (2.5-4.5) mg/dL Microbiology - Last 24 Hours (Table) 09/05/18 17:45 Blood Culture - Final Blood No Growth after 144 hours 09/05/18 17:35 Blood Culture - Final Blood No Growth after 144 hours Assessment and Plan Assessment: 1. Septic shock; secondary to underlying bilateral pneumonia , recovered, currently on IV Zosyn 2. DKA with severe anion gap metabolic acidosis, resolved - patient is currently on 8 units of insulin; patient will be switched to long- acting insulin 3. Hypotension secondary to sepsis , resolved 4. Diabetes mellitus type 1 5. Hypertension 6. Acute renal injury improving and the creatinine is down, and the creatinine is normalized 7. Severe metabolic acidosis; resolved 8. Severe peripheral neuropathy; secondary to diabetes mellitus involving the upper and lower extremities 9. Hypothyroidism; TSH was elevated at time of admission and the patient is currently on IV Synthroid 175 g daily 10. Elevated troponin; non-ST elevation [place] versus possible troponin leak secondary to above. - The patient was started on low-dose beta breanna 12.5 mg of metoprolol daily basis 11. DVT prophylaxis; subcu heparin discontinued secondary to thrombocytopenia CODE STATUS; full code
[2018-09-12 12:42] LABS: Glucose,Whole Blood 160 mg/dL (75-99)
--- NOTE | 2018-09-12 14:21 | P.PN ---
Subjective Progress Note Date: 09/12/18 This is a 68-year-old female patient remains intubated on mechanical ventilator. The patient presented to the hospital for bilateral pneumonia, DKA, severe metabolic acidosis, acute kidney injury and cyanosis. The patient this morning he remains sedated and calm and comfortable. The patient remains on Diprivan and the patient is synchronous with the mechanical ventilator. Diprivan is running at 50 g per KG per minute. The patient remains on assist control mode of ventilation with a tidal volume of 400 with an FiO2 of 40% and PEEP of 5 mg of 26.. The blood gases from today showed a pH of 7.39 with a pCO2 of 36 and pO2 118 on FiO2 of 50%. The patient has recovered from her DKA. Blood sugars under better control. The anion gap metabolic acidosis is recovered and normalized. White cell count is improving. Acute kidney injury is also improving and the creatinine is down to 1.9. The patient is currently on IV Zosyn as an empiric antibiotic coverage. Blood cultures been negative. Pre ssors are still in the form of norepinephrine infusion at running at 20 g per KG per minute. The patient is on D5 half-normal saline at the rate of 75 mL an hour. Insulin drip was restarted. ICU protocol to control the blood sugar. Patient is on DVT and GI prophylaxis. Family is at the bedside. Echocardiogram was done and the patient is a preserved LV function without any significant abnormalities noted. The chest x-ray from today shows. Is in a good location. The patient has a left subclavian triple-lumen catheter in place. There is some patchy retrocardiac opacity seen. Otherwise no other significant abnormalities noted. On today's evaluation of 09/08/2018 I'm seeing this patient for a follow-up. The patient is intubated on a mechanical ventilator. The patient remains on a same vent setting and the patient is on a assist-control mode with a tidal volume of 400 and FiO2 of 40% with a PEEP of 8 and a rate of 26. The blood gases from this morning showed a pH of 7.36 with a pCO2 of 38 and pO2 126. Based on this, I lowered the PEEP down to 5. Chest x-ray shows some limited bibasilar pulmonary infiltrates. There is a left IJ central venous catheter tip being in the right atrium. The patient is sedated with Diprivan earlier this morning at a rate of 50 mg per KG per minute. Earlier this was the patient was still hypotensive on 15-20 mics of levo fed per minutes. The patient was suspected to further IV fluids. She was given 2 L of bolus as the patient's CVP was low at around 6. Nevertheless, despite this, she continued to require pressors. CVP remains low. Echo showed a preserved LV function and there is no valvular abnormalities. The patient will be given 2 additional liters of bolus IV fluids today. The patient was started on vasopressin. Serum cortisol level was 14. Adrenal insufficiency felt to be less likely. We'll supplement this patient with stress dose hydrocortisone based on the ongoing hypotension and hemodynamic instability. Nevertheless, despite all this, the patient's anion gap is closed and the patient is on insulin drip for blood sugar control. The white cell count is down to 10.8. Renal function continues to improve and the creatinine is down to 1.01. The patient's blood cultures of been negative. The patient remains on IV Zosyn as an empiric antibiotic coverage. After stabilizing the hemodynamics, intensive patient some sedation holiday and taken off the Diprivan. He she remains nothing by mouth for now. IV fluids in the form of D5 half-normal saline at the rate of 75 mL an hour. On today's evaluation of the 22,009 Seeing this patient for a follow-up. Earlier this morning the patient was still sedated and the mechanical ventilator. Things have improved considerably on this patient. Following initi ation of vasopressin physiologic dose I was able to wean this patient off the levo fed and discontinue. We gradually improved her volume status. We gave her several bolus of IV fluids and the patient is at least 10 L positive in terms of her net fluid balance. The CVP has built up gradually to 13. Earlier this morning she was found to have some diminished urine output. I Did Fluids to KVO and I Also Give the Patient 20 Mg of IV Lasix Which Helped Her Significantly with a Urine Output. Meanwhile, the patient was on sedation. I discontinued the propofol and we noted gradual recovery of an underlying mental status. At the later stage she was awake and alert. She was able to give us a spontaneous breathing trial and after she demonstrated an adequate weaning parameters. There is spontaneous breathing trial was given with a pressure support of 5 and a PEEP of 5 and a blood gas was checked and following that the patient was extubated to a 4 L of oxygen by nasal cannula. She is doing very well. She is awake and alert and communicating and she is hemodynamically stable at this point in time. Chest x- ray from today shows some limited bibasilar pulmonary infiltrates related to her previous or recent pneumonia. She remains on IV Zosyn. She remains on insulin drip. D5 water half-normal saline was cut down to KVO. Enteral feeding was also discontinued and the NG tube was removed. Current insulin drip is running at 8 units an hour for adequate blood sugar control. No other complaints otherwise for now. She seems to be alert and awake and communicating. She is moving all 4 extremity is without any limitation. Her white cell count is improved. Her renal function is also improved and normalized and creatinine is down to 0.67. The patient has developed some melanotic stools and a hemoglobin is stable at 11.7. She remains on IV Protonix. Also, noted a drop in her platelet count, down to 70,000 and the patient was taken off the subcu heparin and she will given SCDs. She remains on IV Zosyn. Vasopressin was also weaned off and discontinued. On today's evaluation 09/10/2018, the patient remains off the mechanical ventilator. She is speaking up a few words and she is very much alert and awake and she follows commands and answers questions appropriately although with very short sentences. She is profoundly weak. Physical therapy has been consulted. The patient barely able to raise her arms against gravity. Otherwise, her pulmonary status is stable. No respiratory difficulties. No reported cough sputum production chest that is so wheezing. Her chest x-ray shows no acute abnormalities. It shows some stable interstitial prominence and small left- sided pleural effusion and some atelectatic changes in lung bases bilaterally. The patient on is currently on KVO IV fluids. The patient is on insulin drip at 8 units an hour. The patient will be having a swallow evaluation with advanced diet if she is able to swallow appropriately. Currently, she has no nausea. No vomiting. Abdominal pain. No abdominal distention. Her blood sugars are under adequate control for now. In terms of hemodynamics, she is off the pressors and the patient's maintaining her on blood pressure without any major difficulties. She was given a dose of Lasix yesterday 20 mg IV push and she developed significant improvement in the urine output. This morning, she was started on low-dose metoprolol 12.5 mg by mouth daily. She is still maintaining her on bl ood pressure. No significant tachycardias. The beta blockers was started by cardiology as the patient had a component of non-ST elevation myocardial infarction time of admission. She remains on IV Zosyn. She is on IV Protonix. The white cell count is down to 7.7. Renal function is normalized. No other significant events otherwise for now. on 09/11/2018, the patient remains extubated and she is calm and comfortable on oxygen by nasal cannula. No cervical respiratory distress. Active issue for now is her profound weakness. As mentioned yesterday, the patient was having difficulties mobility. In fact she is unable to get out of the bed. Physical therapy is on the case. Legs are quite weak and she is able to move her toes and bend her knees. She is also able to raise her arms. She has an adequate cough. She is able to swallow and her diet will be gradually advanced. She rem ains on insulin drip at 8 units an hour and the patient will be switched to long-acting insulin with Lantus and I would suggest starting an in 40 U which is probably half of the dose that she was taking at home. She is having adequate urine output. the patient was started on metoprolol for rate control. The patient will also benefit from additional dose of Lasix under the chest x-ray showing pulmonary vessel congestion and his same time the patient continues to have some increased fluid both in upper and lower extremity. She is slightly edematous. She is on no pressors for now. No altered mentation. She seems to be more appropriate. She seems to be moving all 4 extremities without any limitation despite her weakness. Denies having any chest pain. No headaches. No pleurisy. No hemoptysis. No aspiration. No cardiac arrhythmias. No other significant events otherwise for now. 09/11/2009 seeing this patient for a follow-up. The patient remains slightly more active compared to yesterday. She remains however profoundly weak and not ready to get out of bed to sit up on a chair or do any form of activity. She is able to eat and swallow appropriately although her intake hasn't been that great. I took her off insulin drip. With on 40 units of Lantus yesterday however earlier this morning the patient had a bout of hypoglycemia. Based on that, the patient was given oral intake she was given an amp of D50 and the Lantus dose was dropped down to 20 units along with slight scale coverage. No fever. No chills. Hemodynamically stable. She producing adequate amount of urine output. Extremely the edema is improving. No nausea. No vomiting. No altered mentation. No aspiration. No other significant events otherwise for now. Objective - Vital Signs Vital signs: Vital Signs Temp 97.5 F L 09/12/18 08:00 Pulse 84 09/12/18 12:21 Resp 12 09/12/18 11:00 BP 133/85 09/12/18 11:00 Pulse Ox 96 09/12/18 11:00 Intake & Output 09/11/18 09/12/18 09/12/18 18:59 06:59 18:59 Intake Total 452.465 340 330 Output Total 1280 745 425 Balance -827.535 -405 -95 Weight 124.6 kg Intake: IV 440 240 180 D5-0.45% NaCl with KCl 140 240 80 20Meq/l 1,000 ml @ 20 mls /hr IV .Q24H [facility] Rx#: [id number] Magnesium Sulfate-D5w Pmx 100 1 gm In Dextrose/Water 1 100ml.bag @ 100 mls/hr IVPB Q1H [facility] Rx#: [id number] Piperacillin-Tazobactam 3 200 100 .375 gm In Sodium Chloride 0.9% 100 ml @ 25 mls/hr IVPB Q8HR [facility] Rx# :[id number] Intake, IV Titration 12.465 100 Amount Insulin Regular 100 unit 12.465 In Sodium Chloride 0.9% 100 ml @ Per Protocol IV .Q0M [facility] Rx#:[id number] Piperacillin-Tazobactam 3 100 .375 gm In Sodium Chloride 0.9% 100 ml @ 25 mls/hr IVPB Q8HR [facility] Rx# :[id number] Oral 150 Output: Urine 1280 745 425 Other: Voiding Method Indwelling Catheter Indwelling Catheter Indwelling Catheter # Bowel Movements 1 ABP, PAP, CO, CI - Last Documented Arterial Blood Pressure 134/61 - Exam Gen. appearance extubated awake and alert on 4 L of oxygen by nasal cannula. Head exam was generally normal. There was no scleral icterus or corneal arcus. Mucous membranes were moist. Neck was supple and without jugular venous distension, thyromegaly, or carotid bruits. Carotids were easily palpable bilaterally. There was no adenopathy. Lungs were clear to auscultation and percussion, and with normal diaphragmatic excursion. No wheezes or rales were noted. Cardiac exam revealed the PMI to be normally situated and sized. The rhythm was regular and no extrasystoles were noted during several minutes of auscultation. The first and second heart sounds were normal and physiologic splitting of the second heart sound was noted. There were no murmurs, rubs, clicks, or gallops. Abdominal exam revealed normal bowel sounds. The abdomen was soft, non-tender, and without masses, organomegaly, or appreciable enlargement of the abdominal aorta. Examination of the extremities revealed easily palpable radial, femoral and pedal pulses. There was no cyanosis, clubbing or edema. Examination of the skin revealed no evidence of significant rashes, suspicious appearing nevi or other concerning lesions. The patient triple-lumen catheter in the left IJ Neurologically awake and alert and there is no focal neurological deficits. The patient has significant motor weakness both in the upper and lower extremities. She is barely able to raise her arms against gravity. She has a decent cough. No facial weakness. She is following commands and answering questions appropriately. Psychiatric to the patient has no delusions or hallucinations. - Labs CBC & Chem 7: 09/12/18 05:45 09/12/18 05:45 Labs: Abnormal Lab Results - Last 24 Hours (Table) 09/11/18 09/11/18 09/11/18 Range/Units 17:26 20:36 20:57 RBC (3.80-5.40) m/uL Plt Count (150-450) k/uL Monocytes # (0-1.0) k/uL Chloride (98-107) mmol/L BUN (7-17) mg/dL Glucose (74-99) mg/dL POC Glucose (mg/dL) 191 H 218 H 234 H (75-99) mg/dL Calcium (8.4-10.2) mg/dL Phosphorus (2.5-4.5) mg/dL 09/12/18 09/12/18 09/12/18 Range/Units 01:27 05:45 05:45 RBC 3.73 L (3.80-5.40) m/uL Plt Count 146 L (150-450) k/uL Monocytes # 1.1 H (0-1.0) k/uL Chloride 115 H (98-107) mmol/L BUN 21 H (7-17) mg/dL Glucose 48 L* (74-99) mg/dL POC Glucose (mg/dL) 131 H (75-99) mg/dL Calcium 8.3 L (8.4-10.2) mg/dL Phosphorus 2.3 L (2.5-4.5) mg/dL 09/12/18 Range/Units 12:36 RBC (3.80-5.40) m/uL Plt Count (150-450) k/uL Monocytes # (0-1.0) k/uL Chloride (98-107) mmol/L BUN (7-17) mg/dL Glucose (74-99) mg/dL POC Glucose (mg/dL) 160 H (75-99) mg/dL Calcium (8.4-10.2) mg/dL Phosphorus (2.5-4.5) mg/dL Microbiology - Last 24 Hours (Table) 09/05/18 17:45 Blood Culture - Final Blood No Growth after 144 hours 09/05/18 17:35 Blood Culture - Final Blood No Growth after 144 hours Assessment and Plan Plan: Assessment 1 acute septic shock likely secondary to underlying bilateral pneumonia , recovered, currently on IV Zosyn 2 acute DKA with severe anion gap metabolic acidosis, recovered and the patient is currently on Lantus insulin and the dose will be dropped as the patient had a episodes of hypoglycemia 3 hypotension secondary to sepsis , recovered 4 diabetes mellitus type 1 5 history of hypertension 6 acute kidney injury improving and the creatinine is down, and the creatinine is normalized 7 leukocytosis, recovered 8 severe metabolic acidosis, recovered 9 peripheral 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 Underlying coronary artery disease needs to be considered, consider acute non-STEMI.. Nevertheless, this troponin leak could be related to above-mentioned events and hypotension. The patient was started on low-dose beta breanna 12.5 mg of metoprolol daily basis 13 thrombocytopenia, possibly related to sepsis versus heparin and heparin subcu was discontinued, and the platelet count today's 81 and is improved compared to yesterday 14 suspected GI bleed, stable hemoglobin with an hemoglobin is at 11.6 Plan Dropped her Lantus dose down to 20 units daily. Monitor the blood sugar. Figueredo scale coverage. Advance diet. Aggressive physical therapy and will continue to follow make further recommendations based on her progress.
[2018-09-12 16:08] LABS: Glucose,Whole Blood 184 mg/dL (75-99)
[2018-09-12 17:41] LABS: Glucose,Whole Blood 223 mg/dL (75-99)
[2018-09-12] MEDS: NOREPINEPHRINE 32 MG in SODIUM CHLORIDE 0.9% 218 ML IV SCH (18:18)
[2018-09-12 20:33] LABS: Glucose,Whole Blood 259 mg/dL (75-99)
[2018-09-12] MEDS: INSULIN DETEMIR (LEVEMIR) 100 UNIT/ML SYR SQ SCH (20:43)
[2018-09-13] MEDS: PIPERACILLIN-TAZOBACTAM 3.375 GM in SODIUM CHLORIDE 0.9% 100 ML IVPB SCH ×2 (00:46→09:41)
[2018-09-13 02:52] LABS: Glucose,Whole Blood 139 mg/dL (75-99)
[2018-09-13] MEDS: LEVOTHYROXINE 125 MCG TAB PO SCH (06:37)
[2018-09-13 06:54] LABS: Glucose,Whole Blood 132 mg/dL (75-99)
[2018-09-13 06:57] LABS: Basophils % (A) 0 %; Eosinophils # (A) 0.4 k/uL (0-0.7); Eosinophils % (A) 5 %; HCT 36.5 % (34.0-46.0); HGB 11.6 gm/dL (11.4-16.0); Lymphocytes # (A) 1.3 k/uL (1.0-4.8); Lymphocytes % (A) 17 %; MCH 31.3 pg (25.0-35.0); MCHC 31.7 g/dL (31.0-37.0); MCV 98.7 fL (80.0-100.0); Macrocytosis Slight; Mean Platelet Volume 9.4; Monocytes # (A) 0.7 k/uL (0-1.0); Monocytes % (A) 10 %; Neutrophils # (A) 4.8 k/uL (1.3-7.7); Neutrophils % (A) 65 %; Platelet Count 128 k/uL (150-450); RDW 14.7 % (11.5-15.5); WBC 7.4 k/uL (3.8-10.6)
[2018-09-13 07:07] LABS: INR 1.1 (<1.2); Partial Thromboplastin Time 23.4 sec (22.0-30.0); Prothrombin Time 11.3 sec (9.0-12.0)
[2018-09-13] MEDS: INSULIN ASPART (NovoLOG) 100 UNIT/ML VIAL SQ SCH ×7 (07:09→20:49)
[2018-09-13 07:20] LABS: Anion Gap 5 mmol/L; Blood Urea Nitrogen 14 mg/dL (7-17); Calcium 8.4 mg/dL (8.4-10.2); Carbon Dioxide 24 mmol/L (22-30); Chloride 112 mmol/L (98-107); Glucose 152 mg/dL (74-99); Magnesium 1.7 mg/dL (1.6-2.3); Phosphorus 2.7 mg/dL (2.5-4.5); Potassium 3.8 mmol/L (3.5-5.1); Sodium 141 mmol/L (137-145)
[2018-09-13] MEDS: IPRATROPIUM-ALBUTEROL 3 ML NEB INHALATION SCH ×4 (09:11→21:29)
[2018-09-13] MEDS: PANTOPRAZOLE 40 MG/10 ML VIAL IV SCH (09:40)
[2018-09-13] MEDS: METOPROLOL TARTRATE 12.5 MG TAB PO SCH (09:41)
[2018-09-13] MEDS: FLUoxetine HCL 20 MG CAP PO SCH (09:41)
--- NOTE | 2018-09-13 10:58 | P.PN ---
Subjective Progress Note Date: 09/13/18 This is a 68-year-old female patient remains intubated on mechanical ventilator. The patient presented to the hospital for bilateral pneumonia, DKA, severe metabolic acidosis, acute kidney injury and cyanosis. The patient this morning he remains sedated and calm and comfortable. The patient remains on Diprivan and the patient is synchronous with the mechanical ventilator. Diprivan is running at 50 g per KG per minute. The patient remains on assist control mode of ventilation with a tidal volume of 400 with an FiO2 of 40% and PEEP of 5 mg of 26.. The blood gases from today showed a pH of 7.39 with a pCO2 of 36 and pO2 118 on FiO2 of 50%. The patient has recovered from her DKA. Blood sugars under better control. The anion gap metabolic acidosis is recovered and normalized. White cell count is improving. Acute kidney injury is also improving and the creatinine is down to 1.9. The patient is currently on IV Zosyn as an empiric antibiotic coverage. Blood cultures been negative. Pre ssors are still in the form of norepinephrine infusion at running at 20 g per KG per minute. The patient is on D5 half-normal saline at the rate of 75 mL an hour. Insulin drip was restarted. ICU protocol to control the blood sugar. Patient is on DVT and GI prophylaxis. Family is at the bedside. Echocardiogram was done and the patient is a preserved LV function without any significant abnormalities noted. The chest x-ray from today shows. Is in a good location. The patient has a left subclavian triple-lumen catheter in place. There is some patchy retrocardiac opacity seen. Otherwise no other significant abnormalities noted. On today's evaluation of 09/08/2018 I'm seeing this patient for a follow-up. The patient is intubated on a mechanical ventilator. The patient remains on a same vent setting and the patient is on a assist-control mode with a tidal volume of 400 and FiO2 of 40% with a PEEP of 8 and a rate of 26. The blood gases from this morning showed a pH of 7.36 with a pCO2 of 38 and pO2 126. Based on this, I lowered the PEEP down to 5. Chest x-ray shows some limited bibasilar pulmonary infiltrates. There is a left IJ central venous catheter tip being in the right atrium. The patient is sedated with Diprivan earlier this morning at a rate of 50 mg per KG per minute. Earlier this was the patient was still hypotensive on 15-20 mics of levo fed per minutes. The patient was suspected to further IV fluids. She was given 2 L of bolus as the patient's CVP was low at around 6. Nevertheless, despite this, she continued to require pressors. CVP remains low. Echo showed a preserved LV function and there is no valvular abnormalities. The patient will be given 2 additional liters of bolus IV fluids today. The patient was started on vasopressin. Serum cortisol level was 14. Adrenal insufficiency felt to be less likely. We'll supplement this patient with stress dose hydrocortisone based on the ongoing hypotension and hemodynamic instability. Nevertheless, despite all this, the patient's anion gap is closed and the patient is on insulin drip for blood sugar control. The white cell count is down to 10.8. Renal function continues to improve and the creatinine is down to 1.01. The patient's blood cultures of been negative. The patient remains on IV Zosyn as an empiric antibiotic coverage. After stabilizing the hemodynamics, intensive patient some sedation holiday and taken off the Diprivan. He she remains nothing by mouth for now. IV fluids in the form of D5 half-normal saline at the rate of 75 mL an hour. On today's evaluation of the 22,009 Seeing this patient for a follow-up. Earlier this morning the patient was still sedated and the mechanical ventilator. Things have improved considerably on this patient. Following initi ation of vasopressin physiologic dose I was able to wean this patient off the levo fed and discontinue. We gradually improved her volume status. We gave her several bolus of IV fluids and the patient is at least 10 L positive in terms of her net fluid balance. The CVP has built up gradually to 13. Earlier this morning she was found to have some diminished urine output. I Did Fluids to KVO and I Also Give the Patient 20 Mg of IV Lasix Which Helped Her Significantly with a Urine Output. Meanwhile, the patient was on sedation. I discontinued the propofol and we noted gradual recovery of an underlying mental status. At the later stage she was awake and alert. She was able to give us a spontaneous breathing trial and after she demonstrated an adequate weaning parameters. There is spontaneous breathing trial was given with a pressure support of 5 and a PEEP of 5 and a blood gas was checked and following that the patient was extubated to a 4 L of oxygen by nasal cannula. She is doing very well. She is awake and alert and communicating and she is hemodynamically stable at this point in time. Chest x- ray from today shows some limited bibasilar pulmonary infiltrates related to her previous or recent pneumonia. She remains on IV Zosyn. She remains on insulin drip. D5 water half-normal saline was cut down to KVO. Enteral feeding was also discontinued and the NG tube was removed. Current insulin drip is running at 8 units an hour for adequate blood sugar control. No other complaints otherwise for now. She seems to be alert and awake and communicating. She is moving all 4 extremity is without any limitation. Her white cell count is improved. Her renal function is also improved and normalized and creatinine is down to 0.67. The patient has developed some melanotic stools and a hemoglobin is stable at 11.7. She remains on IV Protonix. Also, noted a drop in her platelet count, down to 70,000 and the patient was taken off the subcu heparin and she will given SCDs. She remains on IV Zosyn. Vasopressin was also weaned off and discontinued. On today's evaluation 09/10/2018, the patient remains off the mechanical ventilator. She is speaking up a few words and she is very much alert and awake and she follows commands and answers questions appropriately although with very short sentences. She is profoundly weak. Physical therapy has been consulted. The patient barely able to raise her arms against gravity. Otherwise, her pulmonary status is stable. No respiratory difficulties. No reported cough sputum production chest that is so wheezing. Her chest x-ray shows no acute abnormalities. It shows some stable interstitial prominence and small left- sided pleural effusion and some atelectatic changes in lung bases bilaterally. The patient on is currently on KVO IV fluids. The patient is on insulin drip at 8 units an hour. The patient will be having a swallow evaluation with advanced diet if she is able to swallow appropriately. Currently, she has no nausea. No vomiting. Abdominal pain. No abdominal distention. Her blood sugars are under adequate control for now. In terms of hemodynamics, she is off the pressors and the patient's maintaining her on blood pressure without any major difficulties. She was given a dose of Lasix yesterday 20 mg IV push and she developed significant improvement in the urine output. This morning, she was started on low-dose metoprolol 12.5 mg by mouth daily. She is still maintaining her on bl ood pressure. No significant tachycardias. The beta blockers was started by cardiology as the patient had a component of non-ST elevation myocardial infarction time of admission. She remains on IV Zosyn. She is on IV Protonix. The white cell count is down to 7.7. Renal function is normalized. No other significant events otherwise for now. on 09/11/2018, the patient remains extubated and she is calm and comfortable on oxygen by nasal cannula. No cervical respiratory distress. Active issue for now is her profound weakness. As mentioned yesterday, the patient was having difficulties mobility. In fact she is unable to get out of the bed. Physical therapy is on the case. Legs are quite weak and she is able to move her toes and bend her knees. She is also able to raise her arms. She has an adequate cough. She is able to swallow and her diet will be gradually advanced. She rem ains on insulin drip at 8 units an hour and the patient will be switched to long-acting insulin with Lantus and I would suggest starting an in 40 U which is probably half of the dose that she was taking at home. She is having adequate urine output. the patient was started on metoprolol for rate control. The patient will also benefit from additional dose of Lasix under the chest x-ray showing pulmonary vessel congestion and his same time the patient continues to have some increased fluid both in upper and lower extremity. She is slightly edematous. She is on no pressors for now. No altered mentation. She seems to be more appropriate. She seems to be moving all 4 extremities without any limitation despite her weakness. Denies having any chest pain. No headaches. No pleurisy. No hemoptysis. No aspiration. No cardiac arrhythmias. No other significant events otherwise for now. 09/12/2018 seeing this patient for a follow-up. The patient remains slightly more active compared to yesterday. She remains however profoundly weak and not ready to get out of bed to sit up on a chair or do any form of activity. She is able to eat and swallow appropriately although her intake hasn't been that great. I took her off insulin drip. With on 40 units of Lantus yesterday however earlier this morning the patient had a bout of hypoglycemia. Based on that, the patient was given oral intake she was given an amp of D50 and the Lantus dose was dropped down to 20 units along with slight scale coverage. No fever. No chills. Hemodynamically stable. She producing adequate amount of urine output. Extremely the edema is improving. No nausea. No vomiting. No altered mentation. No aspiration. No other significant events otherwise for now. 09/13/2018 I'm seeing this patient for a follow-up. She is looking much better compared to yesterday. She was able to get out of bed finally and sit up on a chair. She is on room air oxygen. Overnight she had some the medial and she was confused. The daughter was called to the scene. She had some issues with insomnia. She was unable to sleep and she was awake for most of the night. Ultimately she improved and currently she is awake and alert is following commands and answering questions appropriately. She is alert and oriented to place and people. Terms of her blood sugar control, she is on Lantus 20 units and her blood sugars under better control for now. No significant hyperglycemia or hypoglycemia pH is tolerating her diet and she is taking the Cerner. No nausea. No vomiting. No emesis. Smith catheter has been in place and the patient is producing adequate amount of urine output. I think catheter was dis continued. No fever. No chills. No other issues for now. I feel that she is gradually getting stronger. I do not think that she is able to walk yet but she is able to raise her arms against gravity and she is trying to grab things and she seems to be much more program. Objective - Vital Signs Vital signs: Vital Signs Temp 98.3 F 09/13/18 04:00 Pulse 82 09/13/18 09:23 Resp 18 09/13/18 04:00 BP 157/85 09/13/18 04:00 Pulse Ox 100 09/13/18 09:13 Intake & Output 09/12/18 09/13/18 09/13/18 18:59 06:59 18:59 Intake Total 1090 245 Output Total 1050 1050 Balance 40 -805 Weight 124.9 kg Intake: IV 240 245 D5-0.45% NaCl with KCl 140 220 20Meq/l 1,000 ml @ 20 mls /hr IV .Q24H [facility] Rx#: [id number] Piperacillin-Tazobactam 3 100 25 .375 gm In Sodium Chloride 0.9% 100 ml @ 25 mls/hr IVPB Q8HR [facility] Rx# :[id number] Oral 850 Output: Urine 1050 1050 Other: Voiding Method Indwelling Catheter Indwelling Catheter ABP, PAP, CO, CI - Last Documented Arterial Blood Pressure 153/61 - Exam Gen. appearance extubated she is awake and alert and currently sitting up on a chair on room air oxygen. Head exam was generally normal. There was no scleral icterus or corneal arcus. Mucous membranes were moist. Neck was supple and without jugular venous distension, thyromegaly, or carotid bruits. Carotids were easily palpable bilaterally. There was no adenopathy. Lungs were clear to auscultation and percussion, and with normal diaphragmatic excursion. No wheezes or rales were noted. Cardiac exam revealed the PMI to be normally situated and sized. The rhythm was regular and no extrasystoles were noted during several minutes of auscultation. The first and second heart sounds were normal and physiologic splitting of the second heart sound was noted. There were no murmurs, rubs, clicks, or gallops. Abdominal exam revealed normal bowel sounds. The abdomen was soft, non-tender, and without masses, organomegaly, or appreciable enlargement of the abdominal aorta. Examination of the extremities revealed easily palpable radial, femoral and pedal pulses. There was no cyanosis, clubbing or edema. Examination of the skin revealed no evidence of significant rashes, suspicious appearing nevi or other concerning lesions. The patient triple-lumen catheter in the left IJ Neurologically awake and alert and there is no focal neurological deficits. The patient has significant motor weakness both in the upper and lower extremities. She is barely able to raise her arms against gravity. She has a decent cough. No facial weakness. She is following commands and answering questions appropriately. Psychiatric to the patient has no delusions or hallucinations. - Labs CBC & Chem 7: 09/13/18 06:46 09/13/18 06:46 Labs: Abnormal Lab Results - Last 24 Hours (Table) 09/12/18 09/12/18 09/12/18 Range/Units 12:36 16:06 17:29 RBC (3.80-5.40) m/uL Plt Count (150-450) k/uL Chloride (98-107) mmol/L Glucose (74-99) mg/dL POC Glucose (mg/dL) 160 H 184 H 223 H (75-99) mg/dL 09/12/18 09/13/18 09/13/18 Range/Units 20:32 02:50 06:46 RBC 3.70 L (3.80-5.40) m/uL Plt Count 128 L (150-450) k/uL Chloride (98-107) mmol/L Glucose (74-99) mg/dL POC Glucose (mg/dL) 259 H 139 H (75-99) mg/dL 09/13/18 09/13/18 Range/Units 06:46 06:53 RBC (3.80-5.40) m/uL Plt Count (150-450) k/uL Chloride 112 H (98-107) mmol/L Glucose 152 H (74-99) mg/dL POC Glucose (mg/dL) 132 H (75-99) mg/dL Assessment and Plan Plan: Assessment 1 acute septic shock likely secondary to underlying bilateral pneumonia , recovered, currently on IV Zosyn and the patient completed the course of Zosyn. Antibiotic will be stopped today. She is currently hemodynamically stable and she is producing excellent urine output. No hypotension. 2 acute DKA with severe anion gap metabolic acidosis, recovered 3 hypotension secondary to sepsis , recovered 4 diabetes mellitus type 1 artery on Lantus insulin 20 units a day along with a Figueredo scale coverage 5 history of hypertension 6 acute kidney injury improving and the creatinine is down, and the creatinine is normalized 7 leukocytosis, recovered 8 severe metabolic acidosis, recovered 9 peripheral 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 Underlying coronary artery disease needs to be considered, consider acute non-STEMI.. Nevertheless, this troponin leak could be related to above-mentioned events and hypotension. The patient was started on low-dose beta breanna 12.5 mg of metoprolol daily basis 13 thrombocytopenia, recovered and the platelet count is up to 128. 14 suspected GI bleed, stable hemoglobin with an hemoglobin is at 11.6 Plan The level of activity as tolerated. Watch for any signs of the AVM. May use Haldol overnight if she gets confused or agitated or she develops any issues with sleeping and insomnia. This continued IV Zosyn. Use incentive spirometer. Attempted peripheral line and if successful triple-lumen catheter can be removed. She is drinking well. She is alert and awake. No other significant events overnight. We'll. She has been downgraded to telemetry.
[2018-09-13] MEDS ORDERED: ENOXAPARIN 30 MG/0.3 ML SYRINGE SQ SCH (11:15)
[2018-09-13 12:26] LABS: Glucose,Whole Blood 98 mg/dL (75-99)
[2018-09-13 15:24] LABS: Glucose,Whole Blood 141 mg/dL (75-99)
[2018-09-13 17:20] LABS: Glucose,Whole Blood 152 mg/dL (75-99)
[2018-09-13] MEDS ORDERED: HALOPERIDOL LACTATE 5 MG/ML 1 ML VIAL IVP PRN (19:17)
[2018-09-13 20:49] LABS: Glucose,Whole Blood 244 mg/dL (75-99)
[2018-09-13] MEDS: INSULIN DETEMIR (LEVEMIR) 100 UNIT/ML SYR SQ SCH (20:49)
[2018-09-14 01:42] LABS: Glucose,Whole Blood 214 mg/dL (75-99)
[2018-09-14 04:59] LABS: Anisocytosis Slight; Basophils % (A) 0 %; Eosinophils # (A) 0.4 k/uL (0-0.7); Eosinophils % (A) 6 %; HCT 35.9 % (34.0-46.0); HGB 11.5 gm/dL (11.4-16.0); Hypochromasia Slight; Lymphocytes # (A) 1.1 k/uL (1.0-4.8); Lymphocytes % (A) 18 %; MCH 31.8 pg (25.0-35.0); MCHC 31.9 g/dL (31.0-37.0); MCV 99.4 fL (80.0-100.0); Macrocytosis Slight; Mean Platelet Volume 9.2; Monocytes # (A) 0.6 k/uL (0-1.0); Monocytes % (A) 9 %; Neutrophils # (A) 4.1 k/uL (1.3-7.7); Neutrophils % (A) 65 %; Platelet Count 118 k/uL (150-450); RBC 3.61 m/uL (3.80-5.40); WBC 6.3 k/uL (3.8-10.6)
[2018-09-14 05:17] LABS: Anion Gap 4 mmol/L; Blood Urea Nitrogen 14 mg/dL (7-17); Calcium 8.4 mg/dL (8.4-10.2); Carbon Dioxide 24 mmol/L (22-30); Chloride 110 mmol/L (98-107); Glucose 160 mg/dL (74-99); Magnesium 1.7 mg/dL (1.6-2.3); Phosphorus 3.3 mg/dL (2.5-4.5); Potassium 3.5 mmol/L (3.5-5.1); Sodium 138 mmol/L (137-145)
[2018-09-14] MEDS: IPRATROPIUM-ALBUTEROL 3 ML NEB INHALATION SCH ×4 (06:04→20:13)
[2018-09-14] MEDS: LEVOTHYROXINE 125 MCG TAB PO SCH (06:13)
[2018-09-14 06:53] LABS: Glucose,Whole Blood 136 mg/dL (75-99)
[2018-09-14] MEDS: INSULIN ASPART (NovoLOG) 100 UNIT/ML VIAL SQ SCH ×7 (07:11→20:46)
[2018-09-14] MEDS: METOPROLOL TARTRATE 12.5 MG TAB PO SCH (09:12)
[2018-09-14] MEDS: FLUoxetine HCL 20 MG CAP PO SCH (09:12)
[2018-09-14] MEDS: ENOXAPARIN 40 MG/0.4 ML SYRINGE SQ SCH (09:12)
[2018-09-14] MEDS: PANTOPRAZOLE 40 MG TABLET PO SCH (09:13)
--- NOTE | 2018-09-14 09:24 | P.PN ---
Subjective Progress Note Date: 09/13/18 Principal diagnosis: DKA Pneumonia Acute renal injury 68-year-old female patient remains intubated on mechanical ventilator. The patient presented to the hospital for bilateral pneumonia, DKA, severe metabolic acidosis, acute kidney injury and cyanosis. 09/13/2018 patient is seen in ICU for a follow-up. She is looking much better compared to yesterday. She was able to get out of bed finally and sit up on a chair. She is on room air oxygen; currently she is awake and alert is following commands and answering questions appropriately. She is alert and oriented to place and people; blood sugar control is stable on Lantus 20 units. No significant hyperglycemia or hypoglycemia pH is tolerating her diet No nausea. No vomiting. No emesis. Smith catheter has been in place and the patient is producing adequate amount of urine output. Labs are reviewed and patient continues to have a stable CBC with hemoglobin of 11.6; electrolytes and renal function is stable; blood glucose ranges between 132-152 Objective - Vital Signs Vital signs: Vital Signs Temp 97.4 F L 09/13/18 12:00 Pulse 78 09/13/18 13:14 Resp 18 09/13/18 12:00 BP 140/92 09/13/18 12:00 Pulse Ox 100 09/13/18 09:13 Intake & Output 09/12/18 09/13/18 09/13/18 18:59 06:59 18:59 Intake Total 1090 245 450 Output Total 1050 1050 900 Balance 40 -805 -450 Weight 124.9 kg Intake: IV 240 245 D5-0.45% NaCl with KCl 140 220 20Meq/l 1,000 ml @ 20 mls /hr IV .Q24H [facility] Rx#: [id number] Piperacillin-Tazobactam 3 100 25 .375 gm In Sodium Chloride 0.9% 100 ml @ 25 mls/hr IVPB Q8HR [facility] Rx# :[id number] Oral 850 450 Output: Urine 1050 1050 900 Other: Voiding Method Indwelling Catheter Indwelling Catheter Indwelling Catheter ABP, PAP, CO, CI - Last Documented Arterial Blood Pressure 153/61 - Exam Gen. appearance; awake and alert on 4 L of oxygen by nasal cannula. Head exam was generally normal. There was no scleral icterus or corneal arcus. Mucous membranes were moist. Neck was supple and without jugular venous distension, thyromegaly, or carotid bruits. Carotids were easily palpable bilaterally. There was no adenopathy. Lungs were clear to auscultation and percussion, and with normal diaphragmatic excursion. No wheezes or rales were noted. Cardiac exam revealed the PMI to be normally situated and sized. The rhythm was regular and no extrasystoles were noted during several minutes of auscultation. Abdominal exam revealed normal bowel sounds. The abdomen was soft, non-tender, and without masses, organomegaly, or appreciable enlargement of the abdominal aorta. Extremities revealed easily palpable radial, femoral and pedal pulses. There was no cyanosis, clubbing or edema. Skin revealed no evidence of significant rashes, suspicious appearing nevi or other concerning lesions. - Labs CBC & Chem 7: 09/14/18 04:41 09/14/18 04:41 Labs: Abnormal Lab Results - Last 24 Hours (Table) 09/12/18 09/12/18 09/12/18 Range/Units 16:06 17:29 20:32 RBC (3.80-5.40) m/uL Plt Count (150-450) k/uL Chloride (98-107) mmol/L Glucose (74-99) mg/dL POC Glucose (mg/dL) 184 H 223 H 259 H (75-99) mg/dL 09/13/18 09/13/18 09/13/18 Range/Units 02:50 06:46 06:46 RBC 3.70 L (3.80-5.40) m/uL Plt Count 128 L (150-450) k/uL Chloride 112 H (98-107) mmol/L Glucose 152 H (74-99) mg/dL POC Glucose (mg/dL) 139 H (75-99) mg/dL 09/13/18 Range/Units 06:53 RBC (3.80-5.40) m/uL Plt Count (150-450) k/uL Chloride (98-107) mmol/L Glucose (74-99) mg/dL POC Glucose (mg/dL) 132 H (75-99) mg/dL Assessment and Plan Assessment: 1. Septic shock; secondary to underlying bilateral pneumonia , recovered, currently on IV Zosyn 2. DKA with severe anion gap metabolic acidosis, resolved - patient is currently on 8 units of insulin; patient will be switched to long- acting insulin 3. Hypotension secondary to sepsis , resolved 4. Diabetes mellitus type 1 5. Hypertension 6. Acute renal injury improving and the creatinine is down, and the creatinine is normalized 7. Severe metabolic acidosis; resolved 8. Severe peripheral neuropathy; secondary to diabetes mellitus involving the upper and lower extremities 9. Hypothyroidism; TSH was elevated at time of admission and the patient is currently on IV Synthroid 175 g daily 10. Elevated troponin; non-ST elevation NC versus possible troponin leak secondary to above. - The patient was started on low-dose beta breanna 12.5 mg of metoprolol daily basis 11. DVT prophylaxis; subcu heparin discontinued secondary to thrombocytopenia CODE STATUS; full code Time with Patient: Greater than 30
[2018-09-14 11:12] VITALS: BMI 41.8
--- NOTE | 2018-09-14 11:12 | XR ---
EXAMINATION TYPE: XR chest 1V portable DATE OF EXAM: 09/14/2018 COMPARISON: 09/11/2018 HISTORY: Shortness of breath TECHNIQUE: Single frontal view of the chest is obtained. FINDINGS: Improved pulmonary vascular congestion is seen, now very mild. Left-sided central venous c atheter terminates in the right atrium, unchanged. Upper limits of normal size cardiac mediastinal si lhouette is redemonstrated. Strand-like opacities at the lung bases are favored to represent minimal atelectasis. No focal consolidation, pleural effusion or pneumothorax. IMPRESSION: Strand-like atelectasis at the lung bases and improved pulmonary vascular congestion, no w very mild.
[2018-09-14 11:57] LABS: Glucose,Whole Blood 39 mg/dL (75-99)
[2018-09-14 11:57] LABS: Glucose,Whole Blood 40 mg/dL (75-99)
--- NOTE | 2018-09-14 12:05 | P.PN ---
Subjective Progress Note Date: 09/14/18 Principal diagnosis: Acute septic shock secondary to bilateral pneumonia. This is a 68-year-old female patient remains intubated on mechanical ventilator. The patient presented to the hospital for bilateral pneumonia, DKA, severe metabolic acidosis, acute kidney injury and cyanosis. The patient this morning he remains sedated and calm and comfortable. The patient remains on Diprivan and the patient is synchronous with the mechanical ventilator. Diprivan is running at 50 g per KG per minute. The patient remains on assist control mode of ventilation with a tidal volume of 400 with an FiO2 of 40% and PEEP of 5 mg of 26.. The blood gases from today showed a pH of 7.39 with a pCO2 of 36 and pO2 118 on FiO2 of 50%. The patient has recovered from her DKA. Blood sugars under better control. The anion gap metabolic acidosis is recovered and normalized. White cell count is improving. Acute kidney injury is also improving and the creatinine is down to 1.9. The patient is currently on IV Zosyn as an empiric antibiotic coverage. Blood cultures been negative. Pr essors are still in the form of norepinephrine infusion at running at 20 g per KG per minute. The patient is on D5 half-normal saline at the rate of 75 mL an hour. Insulin drip was restarted. ICU protocol to control the blood sugar. Patient is on DVT and GI prophylaxis. Family is at the bedside. Echocardiogram was done and the patient is a preserved LV function without any significant abnormalities noted. The chest x-ray from today shows. Is in a good location. The patient has a left subclavian triple-lumen catheter in place. There is some patchy retrocardiac opacity seen. Otherwise no other significant abnormalities noted. Patient was evaluated today on 09/14/2018, she remains in the intensive care unit, very alert, oriented, in no form of distress, she is hemodynamically stab le, still complaining of profound weakness. No major issues overnight, she does have intermittent episodes of confusion. But last night was a better night compared to previous stents. All labs were reviewed, she had a relatively normal CBC, normal electrolytes and renal profile. Her only complaint is she feels generally weak, otherwise no other symptoms. Objective - Vital Signs Vital signs: Vital Signs Temp 98.4 F 09/14/18 08:00 Pulse 80 09/14/18 11:35 Resp 15 09/14/18 08:00 BP 130/79 09/14/18 08:00 Pulse Ox 100 09/14/18 06:04 Intake & Output 09/13/18 09/14/18 09/14/18 18:59 06:59 18:59 Intake Total 550 350 Output Total 900 1120 350 Balance -350 -770 -350 Weight 125 kg 125 kg Intake: Oral 550 350 Output: Urine 900 1120 350 Other: Voiding Method Indwelling Catheter Indwelling Catheter Indwelling Catheter ABP, PAP, CO, CI - Last Documented Arterial Blood Pressure 153/61 - Exam Physical Exam: Revealed a 68-year-old female, in no distress. Head: Atraumatic, normocephalic. HEENT:[Neck is supple.] [No neck masses.] [No thyromegaly.] [No JVD.] PERRLA, EOMI, no icterus. Chest: [Clear throughout, no crackles, no rhonchi, no wheezes.] Symmetrical chest expansion. Cardiac Exam: [Normal S1 and S2, no S3 gallop, no murmur.] Abdomen: [Soft, nontender, no megaly, no rebound, no guarding, normal bowel sounds.] Extremities: [No clubbing, no edema, no cyanosis.] Neurological Exam: [No focal neurologic deficit.] Patient is alert oriented 3, however she is noted to be generally weak. Motor weakness noted in upper and lower extremities. She could raise her arms barely against gravity. Psychiatric: Normal mood, affect and mental status examination. Lymphatics: No lymphadenopathy. Skin: No rashes - Labs CBC & Chem 7: 09/14/18 04:41 09/14/18 04:41 Labs: Abnormal Lab Results - Last 24 Hours (Table) 09/12/18 09/12/18 09/13/18 Range/Units 07:01 07:02 15:22 RBC (3.80-5.40) m/uL RDW (11.5-15.5) % Plt Count (150-450) k/uL Chloride (98-107) mmol/L Creatinine (0.52-1.04) mg/dL Glucose (74-99) mg/dL POC Glucose (mg/dL) 39 L 40 L 141 H (75-99) mg/dL 09/13/18 09/13/18 09/14/18 Range/Units 17:19 20:47 01:40 RBC (3.80-5.40) m/uL RDW (11.5-15.5) % Plt Count (150-450) k/uL Chloride (98-107) mmol/L Creatinine (0.52-1.04) mg/dL Glucose (74-99) mg/dL POC Glucose (mg/dL) 152 H 244 H 214 H (75-99) mg/dL 09/14/18 09/14/18 09/14/18 Range/Units 04:41 04:41 06:51 RBC 3.61 L (3.80-5.40) m/uL RDW 16.0 H (11.5-15.5) % Plt Count 118 L (150-450) k/uL Chloride 110 H (98-107) mmol/L Creatinine 0.51 L (0.52-1.04) mg/dL Glucose 160 H (74-99) mg/dL POC Glucose (mg/dL) 136 H (75-99) mg/dL Assessment and Plan Assessment: Impression: 1 acute septic shock, secondary to community-acquired pneumonia. 2 acute diabetic ketoacidosis 3 type 1 diabetes, on insulin. 4 acute kidney injury, resolved. 5 severe metabolic acidosis secondary to DKA and sepsis. 6 peripheral neuropathy secondary to diabetes 7 hypothyroidism on replacement therapy 8 troponin leak, possible non-ST elevation myocardial infarction 9 thrombocytopenia secondary to sepsis resolved. Recommendation: Continue present supportive care measures, will continue to monitor in the ICU for the next 24 hours, consider transfer to the floor in the next 24 hours if she remains hemodynamically stable, and if no major neurological issues develop overnight. Patient has made a significant improvement since admission. She will likely benefit from considering rehab referral. We'll continue to follow. All her medications were reviewed, she remains on Lovenox, she is on Haldol as needed, he is also on insulin, levothyroxine, and her antibiotics have been discontinued. Time with Patient: Less than 30
[2018-09-14 12:06] LABS: Glucose,Whole Blood 74 mg/dL (75-99)
[2018-09-14 14:08] LABS: Glucose,Whole Blood 130 mg/dL (75-99)
[2018-09-14 17:25] LABS: Glucose,Whole Blood 150 mg/dL (75-99)
[2018-09-14 17:41] LABS: Glucose,Whole Blood 167 mg/dL (75-99)
[2018-09-14 20:24] LABS: Glucose,Whole Blood 171 mg/dL (75-99)
[2018-09-14] MEDS: INSULIN DETEMIR (LEVEMIR) 100 UNIT/ML SYR SQ SCH (20:45)
--- NOTE | 2018-09-14 21:17 | P.PN ---
Subjective Progress Note Date: 09/14/18 Principal diagnosis: DKA Pneumonia Acute renal injury 68-year-old female patient remains intubated on mechanical ventilator. The patient presented to the hospital for bilateral pneumonia, DKA, severe metabolic acidosis, acute kidney injury and cyanosis. 09/13/2018 patient is seen in ICU for a follow-up. She is looking much better compared to yesterday. She was able to get out of bed finally and sit up on a chair. She is on room air oxygen; currently she is awake and alert is following commands and answering questions appropriately. She is alert and oriented to place and people; blood sugar control is stable on Lantus 20 units. No significant hyperglycemia or hypoglycemia pH is tolerating her diet No nausea. No vomiting. No emesis. Smith catheter has been in place and the patient is producing adequate amount of urine output. Labs are reviewed and patient continues to have a stable CBC with hemoglobin of 11.6; electrolytes and renal function is stable; blood glucose ranges between 132-152 09/14/2018, she remains in the intensive care unit, very alert, oriented, in no form of distress, she is hemodynamically stable, still complaining of profound weakness. No major issues overnight, she does have intermittent episodes of confusion. But last night was a better night compared to previous stents. All labs were reviewed, she had a relatively normal CBC, normal electrolytes and renal profile. Her only complaint is she feels generally weak, otherwise no other symptoms. Objective - Vital Signs Vital signs: Vital Signs Temp 98.4 F 09/14/18 08:00 Pulse 82 09/14/18 08:00 Resp 15 09/14/18 08:00 BP 130/79 09/14/18 08:00 Pulse Ox 100 09/14/18 06:04 Intake & Output 09/13/18 09/14/18 09/14/18 18:59 06:59 18:59 Intake Total 550 350 Output Total 900 1120 200 Balance -350 -770 -200 Weight 125 kg Intake: Oral 550 350 Output: Urine 900 1120 200 Other: Voiding Method Indwelling Catheter Indwelling Catheter ABP, PAP, CO, CI - Last Documented Arterial Blood Pressure 153/61 - Exam Gen. appearance; awake and alert on 4 L of oxygen by nasal cannula. Head exam was generally normal. There was no scleral icterus or corneal arcus. Mucous membranes were moist. Neck was supple and without jugular venous distension, thyromegaly, or carotid bruits. Carotids were easily palpable bilaterally. There was no adenopathy. Lungs were clear to auscultation and percussion, and with normal diaphragmatic excursion. No wheezes or rales were noted. Cardiac exam revealed the PMI to be normally situated and sized. The rhythm was regular and no extrasystoles were noted during several minutes of auscultation. Abdominal exam revealed normal bowel sounds. The abdomen was soft, non-tender, and without masses, organomegaly, or appreciable enlargement of the abdominal aorta. Extremities revealed easily palpable radial, femoral and pedal pulses. There was no cyanosis, clubbing or edema. Skin revealed no evidence of significant rashes, suspicious appearing nevi or other concerning lesions. - Labs CBC & Chem 7: 09/14/18 04:41 09/14/18 04:41 Labs: Abnormal Lab Results - Last 24 Hours (Table) 09/13/18 09/13/18 09/13/18 Range/Units 15:22 17:19 20:47 RBC (3.80-5.40) m/uL RDW (11.5-15.5) % Plt Count (150-450) k/uL Chloride (98-107) mmol/L Creatinine (0.52-1.04) mg/dL Glucose (74-99) mg/dL POC Glucose (mg/dL) 141 H 152 H 244 H (75-99) mg/dL 09/14/18 09/14/18 09/14/18 Range/Units 01:40 04:41 04:41 RBC 3.61 L (3.80-5.40) m/uL RDW 16.0 H (11.5-15.5) % Plt Count 118 L (150-450) k/uL Chloride 110 H (98-107) mmol/L Creatinine 0.51 L (0.52-1.04) mg/dL Glucose 160 H (74-99) mg/dL POC Glucose (mg/dL) 214 H (75-99) mg/dL 09/14/18 Range/Units 06:51 RBC (3.80-5.40) m/uL RDW (11.5-15.5) % Plt Count (150-450) k/uL Chloride (98-107) mmol/L Creatinine (0.52-1.04) mg/dL Glucose (74-99) mg/dL POC Glucose (mg/dL) 136 H (75-99) mg/dL Assessment and Plan Assessment: 1. Septic shock; secondary to underlying bilateral pneumonia , recovered, currently on IV Zosyn 2. DKA with severe anion gap metabolic acidosis, resolved - patient is currently on 8 units of insulin; patient will be switched to long- acting insulin 3. Hypotension secondary to sepsis , resolved 4. Diabetes mellitus type 1 5. Hypertension 6. Acute renal injury improving and the creatinine is down, and the creatinine is normalized 7. Severe metabolic acidosis; resolved 8. Severe peripheral neuropathy; secondary to diabetes mellitus involving the upper and lower extremities 9. Hypothyroidism; TSH was elevated at time of admission and the patient is currently on IV Synthroid 175 g daily 10. Elevated troponin; non-ST elevation CT versus possible troponin leak secondary to above. - The patient was started on low-dose beta breanna 12.5 mg of metoprolol daily basis 11. DVT prophylaxis; subcu heparin discontinued secondary to thrombocytopenia CODE STATUS; full code Time with Patient: Greater than 30
[2018-09-15 02:07] LABS: Glucose,Whole Blood 118 mg/dL (75-99)
[2018-09-15] MEDS: LEVOTHYROXINE 125 MCG TAB PO SCH (06:22)
[2018-09-15 07:01] LABS: Glucose,Whole Blood 45 mg/dL (75-99)
[2018-09-15] MEDS: INSULIN ASPART (NovoLOG) 100 UNIT/ML VIAL SQ SCH ×7 (07:09→21:51)
[2018-09-15 07:18] LABS: Glucose,Whole Blood 50 mg/dL (75-99)
[2018-09-15 07:34] LABS: Glucose,Whole Blood 66 mg/dL (75-99)
[2018-09-15 07:47] LABS: Glucose,Whole Blood 65 mg/dL (75-99)
[2018-09-15] MEDS: ENOXAPARIN 40 MG/0.4 ML SYRINGE SQ SCH (07:51)
[2018-09-15] MEDS: PANTOPRAZOLE 40 MG TABLET PO SCH (07:52)
[2018-09-15] MEDS: FLUoxetine HCL 20 MG CAP PO SCH (07:53)
[2018-09-15] MEDS: METOPROLOL TARTRATE 12.5 MG TAB PO SCH (07:54)
[2018-09-15] MEDS: IPRATROPIUM-ALBUTEROL 3 ML NEB INHALATION SCH ×4 (07:54→20:50)
[2018-09-15 08:02] VITALS: RESP 16
[2018-09-15 08:04] LABS: Glucose,Whole Blood 60 mg/dL (75-99)
[2018-09-15 08:19] LABS: Glucose,Whole Blood 80 mg/dL (75-99)
[2018-09-15 10:19] LABS: Glucose,Whole Blood 199 mg/dL (75-99)
[2018-09-15 10:35] LABS: ALT 54 U/L (9-52); AST 50 U/L (14-36); Albumin 2.3 g/dL (3.5-5.0); Alkaline Phosphatase 81 U/L (38-126); Anion Gap 3 mmol/L; Blood Urea Nitrogen 12 mg/dL (7-17); Calcium 8.5 mg/dL (8.4-10.2); Carbon Dioxide 25 mmol/L (22-30); Chloride 109 mmol/L (98-107); Glucose 219 mg/dL (74-99); Potassium 4.1 mmol/L (3.5-5.1); Sodium 137 mmol/L (137-145); Total Bilirubin 0.7 mg/dL (0.2-1.3); Total Protein 4.8 g/dL (6.3-8.2)
[2018-09-15 12:20] LABS: Glucose,Whole Blood 326 mg/dL (75-99)
--- NOTE | 2018-09-15 12:48 | P.PN ---
Subjective Progress Note Date: 09/15/18 Principal diagnosis: Acute septic shock secondary to bilateral pneumonia. This is a 68-year-old female patient remains intubated on mechanical ventilator. The patient presented to the hospital for bilateral pneumonia, DKA, severe metabolic acidosis, acute kidney injury and cyanosis. The patient this morning he remains sedated and calm and comfortable. The patient remains on Diprivan and the patient is synchronous with the mechanical ventilator. Diprivan is running at 50 g per KG per minute. The patient remains on assist control mode of ventilation with a tidal volume of 400 with an FiO2 of 40% and PEEP of 5 mg of 26.. The blood gases from today showed a pH of 7.39 with a pCO2 of 36 and pO2 118 on FiO2 of 50%. The patient has recovered from her DKA. Blood sugars under better control. The anion gap metabolic acidosis is recovered and normalized. White cell count is improving. Acute kidney injury is also improving and the creatinine is down to 1.9. The patient is currently on IV Zosyn as an empiric antibiotic coverage. Blood cultures been negative. Pr essors are still in the form of norepinephrine infusion at running at 20 g per KG per minute. The patient is on D5 half-normal saline at the rate of 75 mL an hour. Insulin drip was restarted. ICU protocol to control the blood sugar. Patient is on DVT and GI prophylaxis. Family is at the bedside. Echocardiogram was done and the patient is a preserved LV function without any significant abnormalities noted. The chest x-ray from today shows. Is in a good location. The patient has a left subclavian triple-lumen catheter in place. There is some patchy retrocardiac opacity seen. Otherwise no other significant abnormalities noted. Patient was evaluated today on 09/14/2018, she remains in the intensive care unit, very alert, oriented, in no form of distress, she is hemodynamically stab le, still complaining of profound weakness. No major issues overnight, she does have intermittent episodes of confusion. But last night was a better night compared to previous stents. All labs were reviewed, she had a relatively normal CBC, normal electrolytes and renal profile. Her only complaint is she feels generally weak, otherwise no other symptoms. Reevaluated today on 09/15/2018, remains in the intensive care unit, however she is an overflow at present. Patient is hemodynamically stable, remained generally weak, no labs were done today, she had low blood sugar early this morning and she was given 1 amp of D50. Patient is being fed, she is hemodynamically stable, and a serum cortisol was added to her labs today. For some reason the patient remained generally weak, and she is not confused at all today. Chest x-ray continues to show steady improvement in her pneumonia bilaterally Objective - Vital Signs Vital signs: Vital Signs Temp 98.2 F 09/15/18 12:00 Pulse 67 09/15/18 12:12 Resp 16 09/15/18 12:00 BP 123/75 09/15/18 12:00 Pulse Ox 98 09/15/18 12:00 Intake & Output 09/14/18 09/15/18 09/15/18 18:59 06:59 18:59 Intake Total 200 Output Total 625 1225 Balance -625 -1025 Weight 125 kg 123.377 kg Intake: Oral 200 Output: Urine 625 1225 Other: Voiding Method Indwelling Catheter Indwelling Catheter Indwelling Catheter ABP, PAP, CO, CI - Last Documented Arterial Blood Pressure 153/61 - Exam Physical Exam: Revealed a 68-year-old female, in no distress. Head: Atraumatic, normocephalic. HEENT:[Neck is supple.] [No neck masses.] [No thyromegaly.] [No JVD.] PERRLA, EOMI, no icterus. Chest: [Clear throughout, no crackles, no rhonchi, no wheezes.] Symmetrical chest expansion. Cardiac Exam: [Normal S1 and S2, no S3 gallop, no murmur.] Abdomen: [Soft, nontender, no megaly, no rebound, no guarding, normal bowel sounds.] Extremities: [No clubbing, no edema, no cyanosis.] Neurological Exam: [No focal neurologic deficit.] Patient is alert oriented 3, however she is noted to be generally weak. Motor weakness noted in upper and lower extremities. She could raise her arms barely against gravity. Psychiatric: Normal mood, affect and mental status examination. Lymphatics: No lymphadenopathy. Skin: No rashes - Labs CBC & Chem 7: 09/14/18 04:41 09/15/18 09:55 Labs: Abnormal Lab Results - Last 24 Hours (Table) 09/14/18 09/14/18 09/14/18 Range/Units 14:06 16:57 17:39 Chloride (98-107) mmol/L Creatinine (0.52-1.04) mg/dL Glucose (74-99) mg/dL POC Glucose (mg/dL) 130 H 150 H 167 H (75-99) mg/dL AST (14-36) U/L ALT (9-52) U/L Total Protein (6.3-8.2) g/dL Albumin (3.5-5.0) g/dL 09/14/18 09/15/18 09/15/18 Range/Units 20:22 02:05 07:00 Chloride (98-107) mmol/L Creatinine (0.52-1.04) mg/dL Glucose (74-99) mg/dL POC Glucose (mg/dL) 171 H 118 H 45 L (75-99) mg/dL AST (14-36) U/L ALT (9-52) U/L Total Protein (6.3-8.2) g/dL Albumin (3.5-5.0) g/dL 09/15/18 09/15/18 09/15/18 Range/Units 07:17 07:32 07:45 Chloride (98-107) mmol/L Creatinine (0.52-1.04) mg/dL Glucose (74-99) mg/dL POC Glucose (mg/dL) 50 L 66 L 65 L (75-99) mg/dL AST (14-36) U/L ALT (9-52) U/L Total Protein (6.3-8.2) g/dL Albumin (3.5-5.0) g/dL 09/15/18 09/15/18 09/15/18 Range/Units 08:02 09:55 10:16 Chloride 109 H (98-107) mmol/L Creatinine 0.51 L (0.52-1.04) mg/dL Glucose 219 H (74-99) mg/dL POC Glucose (mg/dL) 60 L 199 H (75-99) mg/dL AST 50 H (14-36) U/L ALT 54 H (9-52) U/L Total Protein 4.8 L (6.3-8.2) g/dL Albumin 2.3 L (3.5-5.0) g/dL 09/15/18 Range/Units 12:19 Chloride (98-107) mmol/L Creatinine (0.52-1.04) mg/dL Glucose (74-99) mg/dL POC Glucose (mg/dL) 326 H (75-99) mg/dL AST (14-36) U/L ALT (9-52) U/L Total Protein (6.3-8.2) g/dL Albumin (3.5-5.0) g/dL Assessment and Plan Assessment: Impression: 1 acute septic shock, secondary to community-acquired pneumonia. Improving clinically and radiographically. 2 acute diabetic ketoacidosis 3 type 1 diabetes, on insulin. 4 acute kidney injury, resolved. 5 severe metabolic acidosis secondary to DKA and sepsis. 6 peripheral neuropathy secondary to diabetes 7 hypothyroidism on replacement therapy 8 troponin leak, possible non-ST elevation myocardial infarction 9 thrombocytopenia secondary to sepsis resolved. Recommendation: Continue present supportive care measures, plan to transfer the patient out of the ICU to a regular medical floor, continue to monitor sugars frequently, discontinued antibiotics, continue GI and DVT prophylaxis. Ordered serum cortisol level today mostly to address her profound weakness. We'll continue to follow, possible placement in the next 24 hours Time with Patient: Less than 30
--- NOTE | 2018-09-15 14:50 | P.PN ---
Subjective Patient says that she's feeling good but feeling weak Shortness of breath and cough better No chest pain or racing heart Objective - Vital Signs Vital signs: Vital Signs Temp 98.2 F 09/15/18 12:00 Pulse 67 09/15/18 12:12 Resp 16 09/15/18 12:00 BP 123/75 09/15/18 12:00 Pulse Ox 98 09/15/18 12:00 Intake & Output 09/14/18 09/15/18 09/15/18 18:59 06:59 18:59 Intake Total 200 Output Total 625 1225 Balance -625 -1025 Weight 125 kg 123.377 kg Intake: Oral 200 Output: Urine 625 1225 Other: Voiding Method Indwelling Catheter Indwelling Catheter Indwelling Catheter ABP, PAP, CO, CI - Last Documented Arterial Blood Pressure 153/61 - Exam On exam, alert and oriented x3. HEENT: Conjunctivae normal. eyes normal. NECK: No JVD. No thyroid enlargement. No LNs CARDIOVASCULAR: S1, S2 muffled. No murmur RESPIRATION: Breath sounds diminished in the bases. No rhonchi or crackles. No bronchial breathing. ABDOMEN: Soft, nontender . No guarding. no masses palpable. No ascites, No hepatosplenomegaly.Bowel sounds heard. LEGS: No edema. no swelling NERVOUS SYSTEM: Cranial N 2-12 grossly normal. Moves all 4 limbs. No focal deficits. No sensory deficit. No signs of cerebellar dysfucntion. Skin: no ulcer no rash - Labs CBC & Chem 7: 09/14/18 04:41 09/15/18 09:55 Labs: Abnormal Lab Results - Last 24 Hours (Table) 09/14/18 09/14/18 09/14/18 Range/Units 16:57 17:39 20:22 Chloride (98-107) mmol/L Creatinine (0.52-1.04) mg/dL Glucose (74-99) mg/dL POC Glucose (mg/dL) 150 H 167 H 171 H (75-99) mg/dL AST (14-36) U/L ALT (9-52) U/L Total Protein (6.3-8.2) g/dL Albumin (3.5-5.0) g/dL 09/15/18 09/15/18 09/15/18 Range/Units 02:05 07:00 07:17 Chloride (98-107) mmol/L Creatinine (0.52-1.04) mg/dL Glucose (74-99) mg/dL POC Glucose (mg/dL) 118 H 45 L 50 L (75-99) mg/dL AST (14-36) U/L ALT (9-52) U/L Total Protein (6.3-8.2) g/dL Albumin (3.5-5.0) g/dL 09/15/18 09/15/18 09/15/18 Range/Units 07:32 07:45 08:02 Chloride (98-107) mmol/L Creatinine (0.52-1.04) mg/dL Glucose (74-99) mg/dL POC Glucose (mg/dL) 66 L 65 L 60 L (75-99) mg/dL AST (14-36) U/L ALT (9-52) U/L Total Protein (6.3-8.2) g/dL Albumin (3.5-5.0) g/dL 09/15/18 09/15/18 09/15/18 Range/Units 09:55 10:16 12:19 Chloride 109 H (98-107) mmol/L Creatinine 0.51 L (0.52-1.04) mg/dL Glucose 219 H (74-99) mg/dL POC Glucose (mg/dL) 199 H 326 H (75-99) mg/dL AST 50 H (14-36) U/L ALT 54 H (9-52) U/L Total Protein 4.8 L (6.3-8.2) g/dL Albumin 2.3 L (3.5-5.0) g/dL Assessment and Plan Assessment: - Hypo glycemia this morning - Acute septic shock secondary to pneumonia resolved - DKA resolved - History of diabetes mellitus type 1 on insulin - AK I resolved - Hypothyroidism - History of peripheral neuropathy - Thrombocytopenia probably secondary to sepsis resolved Plan - We will transfer the patient out of the ICU to regular medical floor telemetry - Patient sugars were low this morning. We'll try to reduce the nighttime dose of Lantus from 20 units of 15 units and see how she does - Continue aggressive medical care - If sugars are stable, patient will transfer to rehab facility tomorrow. Time with Patient: Greater than 30
[2018-09-15] MEDS: HEPARIN SODIUM,PORCINE 5,000 UNIT/ML 1 ML VIAL SQ SCH (15:52)
[2018-09-15 17:24] LABS: Glucose,Whole Blood 303 mg/dL (75-99)
[2018-09-15 19:56] LABS: Glucose,Whole Blood 258 mg/dL (75-99)
[2018-09-15] MEDS ORDERED: INSULIN DETEMIR (LEVEMIR) 100 UNIT/ML SYR SQ SCH (21:00)
[2018-09-16 02:11] LABS: Glucose,Whole Blood 147 mg/dL (75-99)
[2018-09-16 04:55] VITALS: BP 122/58; TEMP 98.3
[2018-09-16] MEDS: LEVOTHYROXINE 125 MCG TAB PO SCH (06:11)
[2018-09-16 06:42] LABS: Glucose,Whole Blood 152 mg/dL (75-99)
[2018-09-16] MEDS: IPRATROPIUM-ALBUTEROL 3 ML NEB INHALATION SCH (09:03)
[2018-09-16] MEDS: INSULIN ASPART (NovoLOG) 100 UNIT/ML VIAL SQ SCH ×4 (09:08→12:41)
[2018-09-16] MEDS: ENOXAPARIN 40 MG/0.4 ML SYRINGE SQ SCH (09:09)
[2018-09-16] MEDS: PANTOPRAZOLE 40 MG TABLET PO SCH (09:09)
[2018-09-16] MEDS: FLUoxetine HCL 20 MG CAP PO SCH (09:09)
[2018-09-16] MEDS: METOPROLOL TARTRATE 12.5 MG TAB PO SCH (09:09)
[2018-09-16 09:19] VITALS: PULSE 78
--- NOTE | 2018-09-16 10:42 | P.DS ---
Providers Date of admission: 09/05/18 13:52 Expected date of discharge: 09/16/18 Attending physician: Diogenes Riddle Consults: 09/05/18 16:36 Consult Physician Routine Consulting Provider: Kuldip Lopez Consult Reason/Comments: ICu intenisvist Do you want consulting provider notified?: Already Contacted 09/05/18 17:10 Consult Physician Routine Consulting Provider: Chavez Self Consult Reason/Comments: elevated troponin Do you want consulting provider notified?: Yes Primary care physician: Diogenes Riddle Hospital Course: Discharge diagnosis - Acute respiratory failure requiring intubation - Pneumonia - DKA - Severe metabolic acidosis - AK I [facility] course : This very pleasant 68-year-old female past medical history significant for diabetes mellitus on insulin was admitted to the ICU for pneumonia, DKA severe metabolic acidosis, acute kidney injury and cyanosis. She was intubated in the ICU and put on mechanical ventilation she was also initiated on pressor support. Her troponins were high initially. ICU and cardiology were involved in the care. Patient blood sugars improved in and get improved as well. Patient was eventually extubated. She apparently was feeling weak and was sick that is the reason why she missed a few doses of her insulin will probably let her to go into DKA. Cardiology saw the patient was suggested that is probably because of the sepsis and EKG electrodes elevated and treated her conservatively. They added her on beta breanna. Patient's remained relatively stable with preserved ejection fraction. ICU was following the patient and her insulin doses were adjusted. Along the course of blood sugars dropped and after insulin adjustment blood sugars remained stable. Patient was deemed appropriate to be discharged on 09/16/2018 On the day of discharge 09/16/2018 On exam, alert and oriented x3. HEENT: Conjunctivae normal. eyes normal. NECK: No JVD. No thyroid enlargement. No LNs CARDIOVASCULAR: S1, S2 muffled. No murmur RESPIRATION: Breath sounds diminished in the bases. No rhonchi or crackles. No bronchial breathing. ABDOMEN: Soft, nontender . No guarding. no masses palpable. No ascites, No hepatosplenomegaly.Bowel sounds heard. LEGS: No edema. no swelling NERVOUS SYSTEM: Cranial N 2-12 grossly normal. Moves all 4 limbs. No focal deficits. No sensory deficit. No signs of cerebellar dysfucntion. Skin: no ulcer no rash Patient will does be discharged to rehab if cleared by ICU and cardiology Appointments were made with her gas main and line fitter to follow up on her insulin doses. Patient is to see her PCP in 1-2 days Patient Condition at Discharge: Fair Plan - Discharge Summary New Discharge Prescriptions: New Insulin Detemir (Levemir) [Levemir] 18 unit SQ HS #1 vial Metoprolol Tartrate [Lopressor] 12.5 mg PO DAILY #60 tab INSULIN ASPART (NovoLOG) [NovoLOG (formulary)] 15 unit SQ AC-TID #1 vial INSULIN ASPART (NovoLOG) [NovoLOG (formulary)] 0 unit SQ ACHS #1 vial Continue Ramipril [Altace] 2.5 mg PO DAILY FLUoxetine HCL [PROzac] 20 mg PO DAILY rOPINIRole HCL [Requip] 1 mg PO HS Levothyroxine Sodium [Synthroid] 50 mcg PO DAILY traMADol HCl [Ultram] 50 mg PO Q8H PRN PRN Reason: Pain Levothyroxine Sodium [Synthroid] 200 mcg PO DAILY Oxybutynin Chloride [Ditropan] 5 mg PO BID Amoxic-Pot Clav 875-125Mg [Augmentin 875-125] 1 tab PO Q12HR Discontinued Insulin Glargine,Hum.rec.anlog [Toumaxo Solostar] 86 units SQ HS Insulin Lispro [humaLOG Kwikpen] 20 units SQ AC-TID Discharge Medication List Ramipril [Altace] 2.5 mg PO DAILY 01/19/16 [History] FLUoxetine HCL [PROzac] 20 mg PO DAILY 02/15/17 [History] rOPINIRole HCL [Requip] 1 mg PO HS 10/21/17 [History] Levothyroxine Sodium [Synthroid] 50 mcg PO DAILY 04/14/18 [History] Levothyroxine Sodium [Synthroid] 200 mcg PO DAILY 04/14/18 [History] traMADol HCl [Ultram] 50 mg PO Q8H PRN 04/14/18 [History] Amoxic-Pot Clav 875-125Mg [Augmentin 875-125] 1 tab PO Q12HR 09/05/18 [History] Oxybutynin Chloride [Ditropan] 5 mg PO BID 09/05/18 [History] INSULIN ASPART (NovoLOG) [NovoLOG (formulary)] 0 unit SQ ACHS #1 vial 09/16/18 [Rx] INSULIN ASPART (NovoLOG) [NovoLOG (formulary)] 15 unit SQ AC-TID #1 vial 09/16/18 [Rx] Insulin Detemir (Levemir) [Levemir] 18 unit SQ HS #1 vial 09/16/18 [Rx] Metoprolol Tartrate [Lopressor] 12.5 mg PO DAILY #60 tab 09/16/18 [Rx] Follow up Appointment(s)/Referral(s): Diogenes Riddle DO [Primary Care Provider] - 1-2 days Asha Carbajal MD [STAFF PHYSICIAN] - 09/24/18 8:15 am Patient Instructions/Handouts: Pneumonia (DC) Discharge Disposition: TRANSFER TO SNF/ECF
[2018-09-16 11:17] LABS: Glucose,Whole Blood 197 mg/dL (75-99)
--- NOTE | 2018-09-16 11:38 | P.PN ---
Subjective Progress Note Date: 09/16/18 Principal diagnosis: Acute septic shock secondary to bilateral pneumonia. This is a 68-year-old female patient remains intubated on mechanical ventilator. The patient presented to the hospital for bilateral pneumonia, DKA, severe metabolic acidosis, acute kidney injury and cyanosis. The patient this morning he remains sedated and calm and comfortable. The patient remains on Diprivan and the patient is synchronous with the mechanical ventilator. Diprivan is running at 50 g per KG per minute. The patient remains on assist control mode of ventilation with a tidal volume of 400 with an FiO2 of 40% and PEEP of 5 mg of 26.. The blood gases from today showed a pH of 7.39 with a pCO2 of 36 and pO2 118 on FiO2 of 50%. The patient has recovered from her DKA. Blood sugars under better control. The anion gap metabolic acidosis is recovered and normalized. White cell count is improving. Acute kidney injury is also improving and the creatinine is down to 1.9. The patient is currently on IV Zosyn as an empiric antibiotic coverage. Blood cultures been negative. Pr essors are still in the form of norepinephrine infusion at running at 20 g per KG per minute. The patient is on D5 half-normal saline at the rate of 75 mL an hour. Insulin drip was restarted. ICU protocol to control the blood sugar. Patient is on DVT and GI prophylaxis. Family is at the bedside. Echocardiogram was done and the patient is a preserved LV function without any significant abnormalities noted. The chest x-ray from today shows. Is in a good location. The patient has a left subclavian triple-lumen catheter in place. There is some patchy retrocardiac opacity seen. Otherwise no other significant abnormalities noted. Patient was evaluated today on 09/14/2018, she remains in the intensive care unit, very alert, oriented, in no form of distress, she is hemodynamically stab le, still complaining of profound weakness. No major issues overnight, she does have intermittent episodes of confusion. But last night was a better night compared to previous stents. All labs were reviewed, she had a relatively normal CBC, normal electrolytes and renal profile. Her only complaint is she feels generally weak, otherwise no other symptoms. Reevaluated today on 09/15/2018, remains in the intensive care unit, however she is an overflow at present. Patient is hemodynamically stable, remained generally weak, no labs were done today, she had low blood sugar early this morning and she was given 1 amp of D50. Patient is being fed, she is hemodynamically stable, and a serum cortisol was added to her labs today. For some reason the patient remained generally weak, and she is not confused at all today. Chest x-ray continues to show steady improvement in her pneumonia bilaterally Patient was reevaluated today on 09/16/2018, she has been on the medical floor since yesterday, feeling much better, breathing a lot easier, her strength seems to be getting better gradually. Patient denies any shortness of breath, no cough, no wheezing, her blood sugars have been better controlled. Today's blood sugar is 197. Electrolytes are normal. Serum cortisol level was 11/normal Objective - Vital Signs Vital signs: Vital Signs Temp 98.3 F 09/16/18 04:53 Pulse 78 09/16/18 09:18 Resp 16 09/16/18 04:53 BP 122/58 09/16/18 04:53 Pulse Ox 92 L 09/16/18 04:53 Intake & Output 09/15/18 09/16/18 09/16/18 18:59 06:59 18:59 Output Total 1850 Balance -1850 Weight 123 kg Output: Urine 1850 Uretheral (Smith) 350 Other: Voiding Method Indwelling Catheter Bedside Commode Incontinent # Voids 1 1 # Bowel Movements 1 ABP, PAP, CO, CI - Last Documented Arterial Blood Pressure 153/61 - Exam Physical Exam: Revealed a 68-year-old female, in no distress. Head: Atraumatic, normocephalic. HEENT:[Neck is supple.] [No neck masses.] [No thyromegaly.] [No JVD.] PERRLA, EOMI, no icterus. Chest: [Clear throughout, no crackles, no rhonchi, no wheezes.] Symmetrical chest expansion. Cardiac Exam: [Normal S1 and S2, no S3 gallop, no murmur.] Abdomen: [Soft, nontender, no megaly, no rebound, no guarding, normal bowel sounds.] Extremities: [No clubbing, no edema, no cyanosis.] Neurological Exam: [No focal neurologic deficit.] Patient is alert oriented 3, remained generally weak Psychiatric: Normal mood, affect and mental status examination. Lymphatics: No lymphadenopathy. Skin: No rashes - Labs CBC & Chem 7: 09/14/18 04:41 09/15/18 09:55 Labs: Abnormal Lab Results - Last 24 Hours (Table) 09/15/18 09/15/18 09/15/18 Range/Units 12:19 17:23 19:54 POC Glucose (mg/dL) 326 H 303 H 258 H (75-99) mg/dL 09/16/18 09/16/18 09/16/18 Range/Units 02:10 06:40 11:09 POC Glucose (mg/dL) 147 H 152 H 197 H (75-99) mg/dL Assessment and Plan Assessment: Impression: 1 acute septic shock, secondary to community-acquired pneumonia. Improving clinically and radiographically. 2 acute diabetic ketoacidosis 3 type 1 diabetes, on insulin. 4 acute kidney injury, resolved. 5 severe metabolic acidosis secondary to DKA and sepsis. 6 peripheral neuropathy secondary to diabetes 7 hypothyroidism on replacement therapy 8 troponin leak, possible non-ST elevation myocardial infarction 9 thrombocytopenia secondary to sepsis resolved. Recommendation: Agree with discharge planning to rehab facility, follow-up on outpatient basis if necessary. Patient is going to be discharged to rehab today Time with Patient: Less than 30
== END 2018-09-16 13:05 | DRG 870 ==
LOC: EC 11:18 → 2SICU 13:52 → 3NMEDONC 09-15 17:17
PROVIDERS: ADMIT Family Medicine; ATTEND Family Medicine
PROC: 5A1955Z Respiratory Ventilation, Greater than 96 Consecutive Hours (ICD-10-PCS; principal; 2018-09-05)
PROC: 0BH17EZ Insertion of Endotracheal Airway into Trachea, Via Natural or Artificial Opening (ICD-10-PCS; 2018-09-05)
PROC: 03HY32Z Insertion of Monitoring Device into Upper Artery, Percutaneous Approach (ICD-10-PCS; 2018-09-05)
PROC: 4A133B1 Monitoring of Arterial Pressure, Peripheral, Percutaneous Approach (ICD-10-PCS; 2018-09-05)
PROC: 4A133J1 Monitoring of Arterial Pulse, Peripheral, Percutaneous Approach (ICD-10-PCS; 2018-09-05)
PROC: 02H633Z Insertion of Infusion Device into Right Atrium, Percutaneous Approach (ICD-10-PCS; 2018-09-05)
PROC: 04HY32Z Insertion of Monitoring Device into Lower Artery, Percutaneous Approach (ICD-10-PCS; 2018-09-06)
PROC: 4A133B1 Monitoring of Arterial Pressure, Peripheral, Percutaneous Approach (ICD-10-PCS; 2018-09-06)
PROC: 4A133J1 Monitoring of Arterial Pulse, Peripheral, Percutaneous Approach (ICD-10-PCS; 2018-09-06)
DX: A41.9 Sepsis, unspecified organism (principal); I21.A1 Myocardial infarction type 2; J69.0 Pneumonitis due to inhalation of food and vomit; J96.01 Acute respiratory failure with hypoxia; R65.21 Severe sepsis with septic shock; E10.10 Type 1 diabetes mellitus with ketoacidosis without coma; K57.91 Diverticulosis of intestine, part unspecified, without perforation or abscess with bleeding; N17.9 Acute kidney failure, unspecified; Z68.41 Body mass index [BMI] 40.0-44.9, adult; E87.1 Hypo-osmolality and hyponatremia; E87.5 Hyperkalemia; I50.9 Heart failure, unspecified; I11.0 Hypertensive heart disease with heart failure; D69.59 Other secondary thrombocytopenia; E10.42 Type 1 diabetes mellitus with diabetic polyneuropathy; E10.51 Type 1 diabetes mellitus with diabetic peripheral angiopathy without gangrene; E10.649 Type 1 diabetes mellitus with hypoglycemia without coma; E86.9 Volume depletion, unspecified; M19.90 Unspecified osteoarthritis, unspecified site; M10.9 Gout, unspecified; G25.81 Restless legs syndrome; E03.9 Hypothyroidism, unspecified; F41.0 Panic disorder [episodic paroxysmal anxiety]; F32.9 Major depressive disorder, single episode, unspecified; R00.0 Tachycardia, unspecified; E66.9 Obesity, unspecified; E78.5 Hyperlipidemia, unspecified; G89.29 Other chronic pain; I25.10 Atherosclerotic heart disease of native coronary artery without angina pectoris; G47.00 Insomnia, unspecified; Z71.3 Dietary counseling and surveillance; Z79.899 Other long term (current) drug therapy; Z79.4 Long term (current) use of insulin; Z79.890 Hormone replacement therapy; Z90.49 Acquired absence of other specified parts of digestive tract; Z96.652 Presence of left artificial knee joint; Z87.442 Personal history of urinary calculi; Z87.01 Personal history of pneumonia (recurrent); Z91.048 Other nonmedicinal substance allergy status; Z88.2 Allergy status to sulfonamides; Z88.8 Allergy status to other drugs, medicaments and biological substances; Z83.3 Family history of diabetes mellitus; Z81.8 Family history of other mental and behavioral disorders
CPT/HCPCS: 36415; 36600; 51702; 70450; 71045; 72125; 74176; 80048; 80053; 80306; 81001; 81003; 82009; 82271; 82272; 82533; 82805; 83605; 83735; 84100; 84132; 84439; 84443; 84484; 85025; 85027; 85379; 85610; 85730; 87040; 87070; 87086; 87205; 93005; 93306; 94003; 94640; 96360; 96361; 96365; 96375; 96376; 99291

== ENCOUNTER 2018-12-02 23:50 | Emergency (ER) | payer MEDICARE, BC ==
[2018-12-03 00:23] LABS: Glucose,Whole Blood 454 mg/dL (75-99)
[2018-12-03] MEDS ORDERED: SODIUM CHLORIDE 0.9% 1,000 ML IV ONE (00:29)
[2018-12-03 01:13] LABS: Basophils % (A) 1 %; Eosinophils # (A) 0.3 k/uL (0-0.7); Eosinophils % (A) 5 %; HCT 38.2 % (34.0-46.0); HGB 12.3 gm/dL (11.4-16.0); Lymphocytes # (A) 1.7 k/uL (1.0-4.8); Lymphocytes % (A) 28 %; MCH 30.1 pg (25.0-35.0); MCHC 32.1 g/dL (31.0-37.0); MCV 93.8 fL (80.0-100.0); Mean Platelet Volume 8.7; Monocytes # (A) 0.6 k/uL (0-1.0); Monocytes % (A) 10 %; Neutrophils # (A) 3.4 k/uL (1.3-7.7); Neutrophils % (A) 56 %; Platelet Count 199 k/uL (150-450); RBC 4.08 m/uL (3.80-5.40); RDW 13.2 % (11.5-15.5)
[2018-12-03] MEDS ORDERED: ONDANSETRON 4 MG/2 ML VIAL IVP STA (01:17)
[2018-12-03 01:22] LABS: ALT 41 U/L (9-52); AST 46 U/L (14-36); African American GFR (CKD) 69 (>60 ml/min/1.73 sqM); Albumin 3.5 g/dL (3.5-5.0); Alkaline Phosphatase 70 U/L (38-126); Anion Gap 8 mmol/L; Blood Urea Nitrogen 28 mg/dL (7-17); Calcium 9.9 mg/dL (8.4-10.2); Carbon Dioxide 24 mmol/L (22-30); Chloride 104 mmol/L (98-107); Glucose 402 mg/dL (74-99); Potassium 4.4 mmol/L (3.5-5.1); Sodium 136 mmol/L (137-145); Total Bilirubin 0.4 mg/dL (0.2-1.3); Total Protein 6.2 g/dL (6.3-8.2)
--- NOTE | 2018-12-03 01:53 | ED ---
Recheck HPI - General Chief Complaint: Recheck/Abnormal Lab/Rx Stated Complaint: High blood sugar Time Seen by Provider: 12/03/18 00:28 Source: patient Mode of arrival: wheelchair Limitations: no limitations - History of Present Illness Initial Comments: 68-year-old female patient presents to the emergency department today for evaluation of elevated blood sugar. Patient states that for the last week her blood sugars have been elevated consistently over 400. Patient states today her knee to read high so she did self administer 50 units of Humalog. Patient states she did this around 7:30 this evening. Patient states that she has been feeling nauseated today and does report a headache. She denies any recent steroid use. She denies any tachycardia, palpitations, chest pain, or shortness of breath. She denies any abdominal pain, constipation, or diarrhea. Denies any hematuria, dysuria, urinary frequency, urinary urgency. Patient had been living with her granddaughter up until about 2 weeks ago when she began living independently at home. Granddaughter is present states that she doesn't seem to be managing her blood sugar very well and she is concerned she also may be taking an increased amount of her ropinorole, patient states she takes two tablets daily. Patient denies any recent rash, fever, chills, back pain, numbness, tingling, dizziness, weakness, visual changes, or any other complaints. - Related Data Home Medications Medication Instructions Recorded Confirmed Ramipril [Altace] 2.5 mg PO DAILY 01/19/16 09/05/18 FLUoxetine HCL [PROzac] 20 mg PO DAILY 02/15/17 09/05/18 rOPINIRole HCL [Requip] 1 mg PO HS 10/21/17 09/05/18 Levothyroxine Sodium [Synthroid] 50 mcg PO DAILY 04/14/18 09/05/18 Levothyroxine Sodium [Synthroid] 200 mcg PO DAILY 04/14/18 09/05/18 Oxybutynin Chloride [Ditropan] 5 mg PO BID 09/05/18 09/05/18 Previous Rx's Medication Instructions Recorded INSULIN ASPART (NovoLOG) [NovoLOG 0 unit SQ ACHS #1 vial 09/16/18 (formulary)] INSULIN ASPART (NovoLOG) [NovoLOG 15 unit SQ AC-TID #1 vial 09/16/18 (formulary)] Insulin Detemir (Levemir) [Levemir] 18 unit SQ HS #1 vial 09/16/18 Metoprolol Tartrate [Lopressor] 12.5 mg PO DAILY #60 tab 09/16/18 traMADol HCl [Ultram] 50 mg PO Q8H PRN #30 tab 09/16/18 Allergies Allergy/AdvReac Type Severity Reaction Status Date / Time formaldehyde Allergy Itching Verified 12/03/18 00:02 nickel Allergy Itching Verified 12/03/18 00:02 quaternium Allergy Itching Verified 12/03/18 00:02 Sulfa (Sulfonamide Allergy Itching Verified 12/03/18 00:02 Antibiotics) Review of Systems ROS Statement: Those systems with pertinent positive or pertinent negative responses have been documented in the HPI. ROS Other: All systems not noted in ROS Statement are negative. Past Medical History Past Medical History: Heart Failure, Diabetes Mellitus, GI Bleed, Hypertension, Osteoarthritis (OA), Thyroid Disorder Additional Past Medical History / Comment(s): IDDM type I per pt, peripheral neuropathy bilateral hands and feet, arthritis bilateral hands, occasional low back pain, gout L great toe, hypothyroid, L great toe callus, lower GI bleed, diverticulosis, RLS. History of Any Multi-Drug Resistant Organisms: None Reported Past Surgical History: Cholecystectomy, Hernia Repair, Joint Replacement Additional Past Surgical History / Comment(s): Umbilical hernia repair, kidney stone basketing and lithotripsy, total L knee arthroplasty, colonoscopy. Past Anesthesia/Blood Transfusion Reactions: Postoperative Nausea & Vomiting (PONV) Additional Past Anesthesia/Blood Transfusion Reaction / Comment(s): Ponv x1. Past Psychological History: Anxiety, Depression, Panic Disorder Smoking Status: Never smoker Past Alcohol Use History: None Reported Past Drug Use History: None Reported - Past Family History Father History Unknown: Yes Family Medical History: Diabetes Mellitus Additional Family Medical History / Comment(s): etoh Mother Family Medical History: Liver Disease Additional Family Medical History / Comment(s): etoh Brother(s) Additional Family Medical History / Comment(s): depression, etoh General Exam Limitations: no limitations General appearance: alert, in no apparent distress, other (Physical well-deve loped, well-nourished elderly female patient in no acute distress. Vital signs upon presentation are temperature 98.4F, pulse 91, respirations 18, blood pressure 103/65, pulse ox 98% on room air.) Eye exam: Present: normal appearance, PERRL, EOMI. Absent: scleral icterus, conjunctival injection, periorbital swelling ENT exam: Present: normal exam, normal oropharynx, mucous membranes moist Respiratory exam: Present: normal lung sounds bilaterally. Absent: respiratory distress, wheezes, rales, rhonchi, stridor Cardiovascular Exam: Present: regular rate, normal rhythm, normal heart sounds. Absent: systolic murmur, diastolic murmur, rubs, gallop, clicks GI/Abdominal exam: Present: soft, normal bowel sounds. Absent: distended, tenderness, guarding, rebound, rigid Neurological exam: Present: alert, oriented X3, CN II-XII intact Psychiatric exam: Present: normal affect, normal mood Skin exam: Present: warm, dry, intact, normal color. Absent: rash Course Vital Signs 12/03/18 12/03/18 00:00 02:47 Temperature 98.4 F 98.1 F Pulse Rate 91 80 Respiratory 18 16 Rate Blood Pressure 103/65 119/70 O2 Sat by Pulse 98 81 L Oximetry Medical Decision Making - Medical Decision Making 68-year-old female patient presented to the emergency department today for evaluation of hyperglycemia. Prior to arrival at 7:30 PM she did take 50 units of Humalog. Physical examination is unremarkable. She feels overall well than some mild nausea. Labs reviewed and did reveal elevated blood sugar 402. Remainder of labs are unremarkable. Urinalysis did show 13 white cells and rare bacteria, this is been sent for culture as patient is asymptomatic currently. Her subsequent blood glucose monitoring has shown improved levels with the last being 196. Patient does look comfortable being discharged home at this time. She is urged to keep close monitoring of her blood glucose and keep a log for her physician, she is instructed to call her sales promoter in the morning. Return parameters were discussed in detail. She verbalizes understanding and agrees with this plan. - Lab Data Result diagrams: 12/03/18 00:53 12/03/18 00:53 Lab Results 12/03/18 12/03/18 12/03/18 Range/Units 00:22 00:53 00:53 WBC 6.0 (3.8-10.6) k/uL RBC 4.08 (3.80-5.40) m/uL Hgb 12.3 (11.4-16.0) gm/dL Hct 38.2 (34.0-46.0) % MCV 93.8 (80.0-100.0) fL MCH 30.1 (25.0-35.0) pg MCHC 32.1 (31.0-37.0) g/dL RDW 13.2 (11.5-15.5) % Plt Count 199 (150-450) k/uL Neutrophils % 56 % Lymphocytes % 28 % Monocytes % 10 % Eosinophils % 5 % Basophils % 1 % Neutrophils # 3.4 (1.3-7.7) k/uL Lymphocytes # 1.7 (1.0-4.8) k/uL Monocytes # 0.6 (0-1.0) k/uL Eosinophils # 0.3 (0-0.7) k/uL Basophils # 0.0 (0-0.2) k/uL Sodium 136 L (137-145) mmol/L Potassium 4.4 (3.5-5.1) mmol/L Chloride 104 (98-107) mmol/L Carbon Dioxide 24 (22-30) mmol/L Anion Gap 8 mmol/L BUN 28 H (7-17) mg/dL Creatinine 0.97 (0.52-1.04) mg/dL Est GFR (CKD-EPI)AfAm 69 (>60 ml/min/1.73 sqM) Est GFR (CKD-EPI)NonAf 60 (>60 ml/min/1.73 sqM) Glucose 402 H (74-99) mg/dL POC Glucose (mg/dL) 454 H (75-99) mg/dL POC Glu Corporate Concierge ID Ovidio, Nila Calcium 9.9 (8.4-10.2) mg/dL Total Bilirubin 0.4 (0.2-1.3) mg/dL AST 46 H (14-36) U/L ALT 41 (9-52) U/L Alkaline Phosphatase 70 (38-126) U/L Total Protein 6.2 L (6.3-8.2) g/dL Albumin 3.5 (3.5-5.0) g/dL Urine Color Urine Appearance (Clear) Urine pH (5.0-8.0) Ur Specific [place] (1.001-1.035) Urine Protein (Negative) Urine Glucose (UA) (Negative) Urine Ketones (Negative) Urine Blood (Negative) Urine Nitrite (Negative) Urine Bilirubin (Negative) Urine Urobilinogen (<2.0) mg/dL Ur Leukocyte Esterase (Negative) Urine RBC (0-5) /hpf Urine WBC (0-5) /hpf Ur Squamous Epith Cells (0-4) /hpf Urine Bacteria (None) /hpf Hyaline Casts (0-2) /lpf Urine Mucus (None) /hpf Acetone, Qual Negative (Negative) 12/03/18 12/03/18 12/03/18 Range/Units 02:07 02:07 03:07 WBC (3.8-10.6) k/uL RBC (3.80-5.40) m/uL Hgb (11.4-16.0) gm/dL Hct (34.0-46.0) % MCV (80.0-100.0) fL MCH (25.0-35.0) pg MCHC (31.0-37.0) g/dL RDW (11.5-15.5) % Plt Count (150-450) k/uL Neutrophils % % Lymphocytes % % Monocytes % % Eosinophils % % Basophils % % Neutrophils # (1.3-7.7) k/uL Lymphocytes # (1.0-4.8) k/uL Monocytes # (0-1.0) k/uL Eosinophils # (0-0.7) k/uL Basophils # (0-0.2) k/uL Sodium (137-145) mmol/L Potassium (3.5-5.1) mmol/L Chloride (98-107) mmol/L Carbon Dioxide (22-30) mmol/L Anion Gap mmol/L BUN (7-17) mg/dL Creatinine (0.52-1.04) mg/dL Est GFR (CKD-EPI)AfAm (>60 ml/min/1.73 sqM) Est GFR (CKD-EPI)NonAf (>60 ml/min/1.73 sqM) Glucose (74-99) mg/dL POC Glucose (mg/dL) 264 H 196 H (75-99) mg/dL POC Glu Corporate Concierge ID Merline Peraza [place] Calcium (8.4-10.2) mg/dL Total Bilirubin (0.2-1.3) mg/dL AST (14-36) U/L ALT (9-52) U/L Alkaline Phosphatase (38-126) U/L Total Protein (6.3-8.2) g/dL Albumin (3.5-5.0) g/dL Urine Color Yellow Urine Appearance Clear (Clear) Urine pH 5.5 (5.0-8.0) Ur Specific [place] 1.025 (1.001-1.035) Urine Protein Negative (Negative) Urine Glucose (UA) 4+ H (Negative) Urine Ketones Negative (Negative) Urine Blood Negative (Negative) Urine Nitrite Negative (Negative) Urine Bilirubin Negative (Negative) Urine Urobilinogen 2.0 (<2.0) mg/dL Ur Leukocyte Esterase Large H (Negative) Urine RBC 2 (0-5) /hpf Urine WBC 13 H (0-5) /hpf Ur Squamous Epith Cells 2 (0-4) /hpf Urine Bacteria Rare H (None) /hpf Hyaline Casts 1 (0-2) /lpf Urine Mucus Rare H (None) /hpf Acetone, Qual (Negative) Disposition Clinical Impression: Hyperglycemia Disposition: HOME SELF-CARE Condition: Good Instructions (If sedation given, give patient instructions): Diabetic Hyperglycemia (ED) Additional Instructions: Follow-up with your primary care physician for recheck as soon as possible. Take medications as directed. Keep close monitor of your blood sugar. Return to the emergency department immediately for any new, worsening, or concerning symptoms. Is patient prescribed a controlled substance at d/c from ED?: No Referrals: Diogenes Riddle DO [Primary Care Provider] - 1-2 days Time of Disposition: 03:41
[2018-12-03 02:10] LABS: Glucose,Whole Blood 264 mg/dL (75-99)
[2018-12-03] MEDS ORDERED: ACETAMINOPHEN TAB 500 MG TAB PO STA (02:38)
[2018-12-03 02:42] LABS: Appearance,Urine Clear (Clear); Bacteria,Urine Rare /hpf; Bilirubin,Urine Negative (Negative); Blood,Urine Negative (Negative); Color,Urine Yellow; Glucose,Urine (UA) 4+ (Negative); Hyaline Casts,Urine 1 /lpf (0-2); Ketones,Urine Negative (Negative); Leukocyte Esterase,Urine Large (Negative); Mucus,Urine Rare /hpf; Nitrite,Urine Negative (Negative); PH, Urine 5.5 (5.0-8.0); Protein,Urine Negative (Negative); RBC,Urine 2 /hpf (0-5); Specific Gravity,Urine 1.025 (1.001-1.035); Squamous Epithelial Cell,Urine 2 /hpf (0-4); WBC,Urine 13 /hpf (0-5)
[2018-12-03 03:09] LABS: Glucose,Whole Blood 196 mg/dL (75-99)
[2018-12-03 03:57] VITALS: BP 110/63; PULSE 71; RESP 18; TEMP 97.4
== END 2018-12-03 03:51 | disposition home or self-care (01) ==
LOC: EC 23:50
DX: E10.65 Type 1 diabetes mellitus with hyperglycemia (principal); R82.998 Other abnormal findings in urine; E10.42 Type 1 diabetes mellitus with diabetic polyneuropathy; E03.9 Hypothyroidism, unspecified; I11.0 Hypertensive heart disease with heart failure; I50.9 Heart failure, unspecified; G25.81 Restless legs syndrome; M19.90 Unspecified osteoarthritis, unspecified site; F32.9 Major depressive disorder, single episode, unspecified; F41.0 Panic disorder [episodic paroxysmal anxiety]; Z88.2 Allergy status to sulfonamides; Z91.048 Other nonmedicinal substance allergy status; Z79.890 Hormone replacement therapy; Z79.899 Other long term (current) drug therapy; Z96.652 Presence of left artificial knee joint; Z83.3 Family history of diabetes mellitus
CPT/HCPCS: 99284; 96374; 96361; 36415; 80053; 82009; 85025; 81001; J2405

== ENCOUNTER 2018-12-30 21:56 | Inpatient (IN) | payer MEDICARE, BC ==
[2018-12-30] MEDS ORDERED: SODIUM CHLORIDE 0.9% 1,000 ML IV STA ×2 (22:05)
[2018-12-30] MEDS ORDERED: SODIUM CHLORIDE 0.9% 500 ML 500 ML IV STA (22:05)
[2018-12-30] MEDS ORDERED: ACETAMINOPHEN TAB 500 MG TAB PO STA (22:07)
[2018-12-30] MEDS ORDERED: IBUPROFEN 800 MG TAB PO STA (22:07)
--- NOTE | 2018-12-30 22:08 | ED ---
Fever HPI - General Chief Complaint: Fever Stated Complaint: Dehydration Time Seen by Provider: 12/30/18 22:01 Source: patient, EMS, RN notes reviewed, old records reviewed Mode of arrival: EMS Limitations: no limitations - History of Present Illness Initial Comments: This is a 5-year-old female the ER for evaluation. Patient brought in for complaints, fever confusion hypoglycemia not feeling well. Patient has history of significant infections including pneumonia and UTIs. Patient denies abdominal pain mild cough, no travel history no sick contacts, medical medical history is significant for diabetes and high blood pressure. Patient is no know n significant sick contacts. MD Complaint: fever, weakness -: hour(s) Temperature Source: subjective, oral Context: sick contacts Associated Symptoms: chills, myalgias, cough Treatments Prior to Arrival: none - Related Data Home Medications Medication Instructions Recorded Confirmed Ramipril [Altace] 2.5 mg PO DAILY 01/19/16 12/30/18 FLUoxetine HCL [PROzac] 20 mg PO DAILY 02/15/17 12/30/18 Levothyroxine Sodium [Synthroid] 50 mcg PO DAILY 04/14/18 12/30/18 Levothyroxine Sodium [Synthroid] 200 mcg PO DAILY 04/14/18 12/30/18 Acetaminophen [Tylenol] 650 mg PO Q6H PRN 12/30/18 12/30/18 Allopurinol [Zyloprim] 300 mg PO HS 12/30/18 12/30/18 Gabapentin [Neurontin] 100 mg PO BID 12/30/18 12/30/18 Insulin Glargine,Hum.rec.anlog 30 units SQ HS 12/30/18 12/30/18 [Toujeo Solostar] Insulin Lispro [humaLOG Kwikpen] See Protocol SQ AC-TID 12/30/18 12/30/18 rOPINIRole HCL [Requip] 0.5 mg PO BID 12/30/18 12/30/18 Previous Rx's Medication Instructions Recorded traMADol HCl [Ultram] 50 mg PO Q8H PRN #30 tab 09/16/18 Allergies Allergy/AdvReac Type Severity Reaction Status Date / Time formaldehyde Allergy Itching Verified 12/30/18 22:17 nickel Allergy Itching Verified 12/30/18 22:17 quaternium Allergy Itching Verified 12/30/18 22:17 Sulfa (Sulfonamide Allergy Itching Verified 12/30/18 22:17 Antibiotics) Review of Systems ROS Statement: Those systems with pertinent positive or pertinent negative responses have been documented in the HPI. ROS Other: All systems not noted in ROS Statement are negative. Past Medical History Past Medical History: Heart Failure, Diabetes Mellitus, GI Bleed, Hypertension, Osteoarthritis (OA), Thyroid Disorder Additional Past Medical History / Comment(s): IDDM type I per pt, peripheral neuropathy bilateral hands and feet, arthritis bilateral hands, occasional low back pain, gout L great toe, hypothyroid, L great toe callus, lower GI bleed, diverticulosis, RLS. History of Any Multi-Drug Resistant Organisms: None Reported Past Surgical History: Cholecystectomy, Hernia Repair, Joint Replacement Additional Past Surgical History / Comment(s): Umbilical hernia repair, kidney stone basketing and lithotripsy, total L knee arthroplasty, colonoscopy. Past Anesthesia/Blood Transfusion Reactions: Postoperative Nausea & Vomiting (PONV) Additional Past Anesthesia/Blood Transfusion Reaction / Comment(s): Ponv x1. Past Psychological History: Anxiety, Depression, Panic Disorder Smoking Status: Never smoker Past Alcohol Use History: None Reported Past Drug Use History: None Reported - Past Family History Father History Unknown: Yes Family Medical History: Diabetes Mellitus Additional Family Medical History / Comment(s): etoh Mother Family Medical History: Liver Disease Additional Family Medical History / Comment(s): etoh Brother(s) Additional Family Medical History / Comment(s): depression, etoh General Exam Limitations: no limitations General appearance: alert, in no apparent distress Head exam: Present: atraumatic, normocephalic, normal inspection Eye exam: Present: normal appearance, PERRL, EOMI. Absent: scleral icterus, conjunctival injection, periorbital swelling ENT exam: Present: normal exam, mucous membranes moist Neck exam: Present: normal inspection. Absent: tenderness, meningismus, lymphadenopathy Respiratory exam: Present: normal lung sounds bilaterally. Absent: respiratory distress, wheezes, rales, rhonchi, stridor Cardiovascular Exam: Present: regular rate, normal rhythm, normal heart sounds. Absent: systolic murmur, diastolic murmur, rubs, gallop, clicks GI/Abdominal exam: Present: soft, normal bowel sounds. Absent: distended, tenderness, guarding, rebound, rigid Extremities exam: Present: normal inspection, full ROM, normal capillary refill. Absent: tenderness, pedal edema, joint swelling, calf tenderness Back exam: Present: normal inspection Neurological exam: Present: alert, oriented X3, CN II-XII intact Psychiatric exam: Present: normal affect, normal mood Skin exam: Present: warm, dry, intact, normal color. Absent: rash Course Vital Signs 12/30/18 22:00 Temperature 102.9 F H Pulse Rate 57 L Respiratory 19 Rate Blood Pressure 162/81 O2 Sat by Pulse 97 Oximetry - Reevaluation(s) Reevaluation #1: 12/30/18 23:44 Medical record is reviewed Reevaluation #2: 12/30/18 23:44 Patient feeling improved Medical Decision Making - Medical Decision Making 68 female the ER for evaluation of fever, significant urinary tract infection, patient be admitted for IV antibiotics and further treatment and evaluation. - Lab Data Result diagrams: 12/30/18 22:10 12/30/18 22:10 Lab Results 12/30/18 12/30/18 12/30/18 Range/Units 22:10 22:10 22:10 WBC 7.3 (3.8-10.6) k/uL RBC 4.23 (3.80-5.40) m/uL Hgb 12.8 (11.4-16.0) gm/dL Hct 39.8 (34.0-46.0) % MCV 94.2 (80.0-100.0) fL MCH 30.2 (25.0-35.0) pg MCHC 32.0 (31.0-37.0) g/dL RDW 14.9 (11.5-15.5) % Plt Count 150 (150-450) k/uL Neutrophils % 80 % Lymphocytes % 9 % Monocytes % 9 % Eosinophils % 1 % Basophils % 1 % Neutrophils # 5.8 (1.3-7.7) k/uL Lymphocytes # 0.6 L (1.0-4.8) k/uL Monocytes # 0.7 (0-1.0) k/uL Eosinophils # 0.1 (0-0.7) k/uL Basophils # 0.0 (0-0.2) k/uL PT (9.0-12.0) sec INR (<1.2) APTT (22.0-30.0) sec Sodium 132 L (137-145) mmol/L Potassium 3.9 (3.5-5.1) mmol/L Chloride 103 (98-107) mmol/L Carbon Dioxide 18 L (22-30) mmol/L Anion Gap 11 mmol/L BUN 21 H (7-17) mg/dL Creatinine 0.67 (0.52-1.04) mg/dL Est GFR (CKD-EPI)AfAm >90 (>60 ml/min/1.73 sqM) Est GFR (CKD-EPI)NonAf 90 (>60 ml/min/1.73 sqM) Glucose 407 H (74-99) mg/dL POC Glucose (mg/dL) (75-99) mg/dL POC Glu Brass Molder ID Plasma Lactic Acid Guicho (0.7-2.0) mmol/L Calcium 8.6 (8.4-10.2) mg/dL Phosphorus 2.6 (2.5-4.5) mg/dL Magnesium 1.6 (1.6-2.3) mg/dL Total Bilirubin 1.2 (0.2-1.3) mg/dL AST 44 H (14-36) U/L ALT 40 (9-52) U/L Alkaline Phosphatase 80 (38-126) U/L Creatine Kinase 124 (30-135) U/L NT-Pro-B Natriuret Pep 1250 pg/mL Total Protein 6.0 L (6.3-8.2) g/dL Albumin 3.3 L (3.5-5.0) g/dL Urine Color Urine Appearance (Clear) Urine pH (5.0-8.0) Ur Specific [place] (1.001-1.035) Urine Protein (Negative) Urine Glucose (UA) (Negative) Urine Ketones (Negative) Urine Blood (Negative) Urine Nitrite (Negative) Urine Bilirubin (Negative) Urine Urobilinogen (<2.0) mg/dL Ur Leukocyte Esterase (Negative) Urine RBC (0-5) /hpf Urine WBC (0-5) /hpf Ur Squamous Epith Cells (0-4) /hpf Urine Bacteria (None) /hpf Influenza Type A RNA (Not Detectd) Influenza Type B (PCR) (Not Detectd) 12/30/18 12/30/18 12/30/18 Range/Units 22:10 22:10 22:20 WBC (3.8-10.6) k/uL RBC (3.80-5.40) m/uL Hgb (11.4-16.0) gm/dL Hct (34.0-46.0) % MCV (80.0-100.0) fL MCH (25.0-35.0) pg MCHC (31.0-37.0) g/dL RDW (11.5-15.5) % Plt Count (150-450) k/uL Neutrophils % % Lymphocytes % % Monocytes % % Eosinophils % % Basophils % % Neutrophils # (1.3-7.7) k/uL Lymphocytes # (1.0-4.8) k/uL Monocytes # (0-1.0) k/uL Eosinophils # (0-0.7) k/uL Basophils # (0-0.2) k/uL PT 11.4 (9.0-12.0) sec INR 1.1 (<1.2) APTT 25.1 (22.0-30.0) sec Sodium (137-145) mmol/L Potassium (3.5-5.1) mmol/L Chloride (98-107) mmol/L Carbon Dioxide (22-30) mmol/L Anion Gap mmol/L BUN (7-17) mg/dL Creatinine (0.52-1.04) mg/dL Est GFR (CKD-EPI)AfAm (>60 ml/min/1.73 sqM) Est GFR (CKD-EPI)NonAf (>60 ml/min/1.73 sqM) Glucose (74-99) mg/dL POC Glucose (mg/dL) 395 H (75-99) mg/dL POC Glu Brass Molder ID Mayra Herrera Plasma Lactic Acid Guicho 1.2 (0.7-2.0) mmol/L Calcium (8.4-10.2) mg/dL Phosphorus (2.5-4.5) mg/dL Magnesium (1.6-2.3) mg/dL Total Bilirubin (0.2-1.3) mg/dL AST (14-36) U/L ALT (9-52) U/L Alkaline Phosphatase (38-126) U/L Creatine Kinase (30-135) U/L NT-Pro-B Natriuret Pep pg/mL Total Protein (6.3-8.2) g/dL Albumin (3.5-5.0) g/dL Urine Color Urine Appearance (Clear) Urine pH (5.0-8.0) Ur Specific [place] (1.001-1.035) Urine Protein (Negative) Urine Glucose (UA) (Negative) Urine Ketones (Negative) Urine Blood (Negative) Urine Nitrite (Negative) Urine Bilirubin (Negative) Urine Urobilinogen (<2.0) mg/dL Ur Leukocyte Esterase (Negative) Urine RBC (0-5) /hpf Urine WBC (0-5) /hpf Ur Squamous Epith Cells (0-4) /hpf Urine Bacteria (None) /hpf Influenza Type A RNA (Not Detectd) Influenza Type B (PCR) (Not Detectd) 12/30/18 12/30/18 12/30/18 Range/Units 22:25 23:20 23:40 WBC (3.8-10.6) k/uL RBC (3.80-5.40) m/uL Hgb (11.4-16.0) gm/dL Hct (34.0-46.0) % MCV (80.0-100.0) fL MCH (25.0-35.0) pg MCHC (31.0-37.0) g/dL RDW (11.5-15.5) % Plt Count (150-450) k/uL Neutrophils % % Lymphocytes % % Monocytes % % Eosinophils % % Basophils % % Neutrophils # (1.3-7.7) k/uL Lymphocytes # (1.0-4.8) k/uL Monocytes # (0-1.0) k/uL Eosinophils # (0-0.7) k/uL Basophils # (0-0.2) k/uL PT (9.0-12.0) sec INR (<1.2) APTT (22.0-30.0) sec Sodium (137-145) mmol/L Potassium (3.5-5.1) mmol/L Chloride (98-107) mmol/L Carbon Dioxide (22-30) mmol/L Anion Gap mmol/L BUN (7-17) mg/dL Creatinine (0.52-1.04) mg/dL Est GFR (CKD-EPI)AfAm (>60 ml/min/1.73 sqM) Est GFR (CKD-EPI)NonAf (>60 ml/min/1.73 sqM) Glucose (74-99) mg/dL POC Glucose (mg/dL) 368 H (75-99) mg/dL POC Glu Brass Molder ID Michelle Neff Plasma Lactic Acid Guicho (0.7-2.0) mmol/L Calcium (8.4-10.2) mg/dL Phosphorus (2.5-4.5) mg/dL Magnesium (1.6-2.3) mg/dL Total Bilirubin (0.2-1.3) mg/dL AST (14-36) U/L ALT (9-52) U/L Alkaline Phosphatase (38-126) U/L Creatine Kinase (30-135) U/L NT-Pro-B Natriuret Pep pg/mL Total Protein (6.3-8.2) g/dL Albumin (3.5-5.0) g/dL Urine Color Yellow Urine Appearance Cloudy H (Clear) Urine pH 6.5 (5.0-8.0) Ur Specific [place] 1.018 (1.001-1.035) Urine Protein Negative (Negative) Urine Glucose (UA) 4+ H (Negative) Urine Ketones Trace H (Negative) Urine Blood Trace H (Negative) Urine Nitrite Negative (Negative) Urine Bilirubin Negative (Negative) Urine Urobilinogen 3.0 (<2.0) mg/dL Ur Leukocyte Esterase Large H (Negative) Urine RBC 9 H (0-5) /hpf Urine WBC >182 H (0-5) /hpf Ur Squamous Epith Cells 1 (0-4) /hpf Urine Bacteria Few H (None) /hpf Influenza Type A RNA Not Detected (Not Detectd) Influenza Type B (PCR) Not Detected (Not Detectd) - EKG Data -: EKG Interpreted by Me (EKG shows sinus rhythm rate of 84, MN 186, QRS 86, QTc 441) - Radiology Data Radiology results: report reviewed (Chest x-rays negative for acute disease), image reviewed Disposition Clinical Impression: UTI (urinary tract infection), Fever Disposition: ADMITTED IP TO THIS HOSP Condition: Fair Is patient prescribed a controlled substance at d/c from ED?: No Referrals: Diogenes Riddle DO [Primary Care Provider] - 1-2 days
[2018-12-30 22:21] LABS: Glucose,Whole Blood 395 mg/dL (75-99)
[2018-12-30 22:45] LABS: Basophils % (A) 1 %; Eosinophils # (A) 0.1 k/uL (0-0.7); Eosinophils % (A) 1 %; HCT 39.8 % (34.0-46.0); HGB 12.8 gm/dL (11.4-16.0); Lymphocytes # (A) 0.6 k/uL (1.0-4.8); Lymphocytes % (A) 9 %; MCH 30.2 pg (25.0-35.0); MCV 94.2 fL (80.0-100.0); Mean Platelet Volume 8.1; Monocytes # (A) 0.7 k/uL (0-1.0); Monocytes % (A) 9 %; Neutrophils # (A) 5.8 k/uL (1.3-7.7); Neutrophils % (A) 80 %; Platelet Count 150 k/uL (150-450); RBC 4.23 m/uL (3.80-5.40); RDW 14.9 % (11.5-15.5); WBC 7.3 k/uL (3.8-10.6)
[2018-12-30 22:54] LABS: INR 1.1 (<1.2); Partial Thromboplastin Time 25.1 sec (22.0-30.0); Prothrombin Time 11.4 sec (9.0-12.0)
[2018-12-30 22:56] LABS: ALT 40 U/L (9-52); AST 44 U/L (14-36); African American GFR (CKD) >90 (>60 ml/min/1.73 sqM); Albumin 3.3 g/dL (3.5-5.0); Alkaline Phosphatase 80 U/L (38-126); Anion Gap 11 mmol/L; Blood Urea Nitrogen 21 mg/dL (7-17); Calcium 8.6 mg/dL (8.4-10.2); Carbon Dioxide 18 mmol/L (22-30); Chloride 103 mmol/L (98-107); Creatine Kinase 124 U/L (30-135); Glucose 407 mg/dL (74-99); Magnesium 1.6 mg/dL (1.6-2.3); Phosphorus 2.6 mg/dL (2.5-4.5); Potassium 3.9 mmol/L (3.5-5.1); Sodium 132 mmol/L (137-145); Total Bilirubin 1.2 mg/dL (0.2-1.3)
--- NOTE | 2018-12-30 23:14 | XR ---
EXAM: XR Chest, 2 Views CLINICAL HISTORY: Pain TECHNIQUE: Frontal and lateral views of the chest. COMPARISON: 09/14/18 FINDINGS: Lungs: Mild diffuse interstitial opacities in both lungs. Pleural space: Unremarkable. No pneumothorax. Heart: Unremarkable. No cardiomegaly. Mediastinum: Unremarkable. Bones/joints: Osteopenia. Moderate degenerative changes. IMPRESSION: Mild pulmonary edema
[2018-12-30 23:33] LABS: Appearance,Urine Cloudy (Clear); Bacteria,Urine Few /hpf; Bilirubin,Urine Negative (Negative); Blood,Urine Trace (Negative); Color,Urine Yellow; Glucose,Urine (UA) 4+ (Negative); Ketones,Urine Trace (Negative); Leukocyte Esterase,Urine Large (Negative); Nitrite,Urine Negative (Negative); PH, Urine 6.5 (5.0-8.0); Protein,Urine Negative (Negative); RBC,Urine 9 /hpf (0-5); Specific Gravity,Urine 1.018 (1.001-1.035); Squamous Epithelial Cell,Urine 1 /hpf (0-4); WBC,Urine >182 /hpf (0-5)
[2018-12-30 23:43] LABS: Glucose,Whole Blood 368 mg/dL (75-99)
[2018-12-30] MEDS ORDERED: INSULIN REGULAR 100 UNIT/ML VIAL IV ONE (23:55)
[2018-12-31] MEDS: ACETAMINOPHEN TAB 325 MG TAB PO PRN ×2 (02:26→20:50)
[2018-12-31 02:32] LABS: Glucose,Whole Blood 265 mg/dL (75-99)
[2018-12-31 07:17] LABS: Glucose,Whole Blood 331 mg/dL (75-99)
[2018-12-31] MEDS ORDERED: INSULIN ASPART (NovoLOG) 100 UNIT/ML VIAL SQ SCH (07:30)
[2018-12-31] MEDS ORDERED: ACETAMINOPHEN TAB 325 MG TAB PO PRN (09:08)
[2018-12-31] MEDS ORDERED: traMADol 50 MG TAB PO PRN (09:08)
[2018-12-31] MEDS ORDERED: LEVOTHYROXINE 50 MCG TAB PO SCH (09:15)
[2018-12-31] MEDS: LISINOPRIL 10 MG TAB PO SCH (10:29)
[2018-12-31] MEDS: GABAPENTIN 100 MG CAP PO SCH ×2 (10:29→20:49)
[2018-12-31] MEDS: LEVOTHYROXINE 125 MCG TAB PO SCH (10:29)
[2018-12-31] MEDS: INSULIN DETEMIR (LEVEMIR) 100 UNIT/ML SYR SQ SCH (10:30)
[2018-12-31] MEDS: FLUoxetine HCL 20 MG CAP PO SCH (10:30)
[2018-12-31] MEDS: ENOXAPARIN 40 MG/0.4 ML SYRINGE SQ SCH (10:30)
[2018-12-31 11:00] LABS: Glucose,Whole Blood 333 mg/dL (75-99)
[2018-12-31] MEDS: INSULIN ASPART (NovoLOG) 100 UNIT/ML VIAL SQ SCH ×3 (12:11→20:50)
[2018-12-31] MEDS ORDERED: INSULIN ASPART (NovoLOG) 100 UNIT/ML VIAL SQ ONE (12:48)
[2018-12-31] MEDS ORDERED: Magnesium Replacement Protocol 1 EACH MISC MISCELLANE PRN (14:16)
--- NOTE | 2018-12-31 14:34 | P.HPIM ---
History of Present Illness H&P Date: 12/31/18 This is a 68-year-old female with history of CHF, diabetes mellitus, neuropathy, GI bleed, hypertension, osteoarthritis, hypothyroidism, pneumonia, hypoxic respiratory failure requiring intubation ,anxiety, depression, recurrent UTIs, panic disorder and multiple other medical issues, presented to the ER with complaints of not feeling well accompanied by fever, confusion, hyperglycemia. On admission temperature 102.9, normal WBC, sodium 132, BUN 21, creatinine 0.67, glucose 407, troponin 0.043, potassium 3.9, magnesium 1.6. UA reported urine RBCs elevated, greater than 182, large leukocytes esterase. Tested negative for influenza. Reports she was waiting in the sun yesterday for an extended amount of time, to be picked up for shopping. Denies nausea, vomiting, diarrhea. Denies abdominal pain. Recently completed a couple weeks at subacute rehab and had returned home. Received gentle IV fluid hydration, IV antibiotics of Rocephin. Significant clinical improvement. This morning blood sugars uncontrolled, patient did not receive long-acting at bedtime insulin, also received a regular diet tray for breakfast. Currently afebrile, T-max 102.9.VSS, no tachycardia. Chest x-ray reporting mild pulmonary edema. Denies chest pain, palpitations or shortness of breath. Denies lightheadedness dizziness or focal deficits. Review of Systems ROS Statement: Those systems with pertinent positive or pertinent negative responses have been documented in the HPI. ROS Other: All systems not noted in ROS Statement are negative. Past Medical History Past Medical History: Heart Failure, Diabetes Mellitus, GI Bleed, Hypertension, Osteoarthritis (OA), Thyroid Disorder Additional Past Medical History / Comment(s): IDDM type I per pt, peripheral neuropathy bilateral hands and feet, arthritis bilateral hands, occasional low back pain, gout L great toe, hypothyroid, L great toe callus, lower GI bleed, diverticulosis, RLS. History of Any Multi-Drug Resistant Organisms: None Reported Past Surgical History: Cholecystectomy, Hernia Repair, Joint Replacement Additional Past Surgical History / Comment(s): Umbilical hernia repair, kidney stone basketing and lithotripsy, total L knee arthroplasty, colonoscopy. Past Anesthesia/Blood Transfusion Reactions: Postoperative Nausea & Vomiting (PONV) Additional Past Anesthesia/Blood Transfusion Reaction / Comment(s): Ponv x1. Past Psychological History: Anxiety, Depression, Panic Disorder Additional Psychological History / Comment(s): Pt resides alone. She uses a cane, walker or wheelchair. Pt drives. Her daughters come daily. Pt manages her medications and blood glucoses. Smoking Status: Never smoker Past Alcohol Use History: None Reported Additional Past Alcohol Use History / Comment(s): Pt states she recently started drinking one glass of wine a nite. Past Drug Use History: None Reported - Past Family History Father History Unknown: Yes Family Medical History: Diabetes Mellitus Additional Family Medical History / Comment(s): etoh Mother Family Medical History: Liver Disease Additional Family Medical History / Comment(s): etoh Brother(s) Additional Family Medical History / Comment(s): depression, etoh Medications and Allergies Home Medications Medication Instructions Recorded Confirmed Type Ramipril [Altace] 2.5 mg PO DAILY 01/19/16 12/30/18 History FLUoxetine HCL [PROzac] 20 mg PO DAILY 02/15/17 12/30/18 History Levothyroxine Sodium [Synthroid] 50 mcg PO DAILY 04/14/18 12/30/18 History Levothyroxine Sodium [Synthroid] 200 mcg PO DAILY 04/14/18 12/30/18 History traMADol HCl [Ultram] 50 mg PO Q8H PRN #30 tab 09/16/18 12/30/18 Rx Acetaminophen [Tylenol] 650 mg PO Q6H PRN 12/30/18 12/30/18 History Allopurinol [Zyloprim] 300 mg PO HS 12/30/18 12/30/18 History Gabapentin [Neurontin] 100 mg PO BID 12/30/18 12/30/18 History Insulin Glargine,Hum.rec.anlog 30 units SQ HS 12/30/18 12/30/18 History [Tougirma Solostar] Insulin Lispro [humaLOG Kwikpen] See Protocol SQ AC-TID 12/30/18 12/30/18 History rOPINIRole HCL [Requip] 0.5 mg PO BID 12/30/18 12/30/18 History Allergies Allergy/AdvReac Type Severity Reaction Status Date / Time formaldehyde Allergy Itching Verified 12/30/18 22:17 nickel Allergy Itching Verified 12/30/18 22:17 quaternium Allergy Itching Verified 12/30/18 22:17 Sulfa (Sulfonamide Allergy Itching Verified 12/30/18 22:17 Antibiotics) Physical Exam Vitals: Vital Signs Temp Pulse Pulse Resp BP BP Pulse Ox 12/31/18 07:00 97.4 F L 57 L 16 119/66 97 12/31/18 02:27 97.7 F 60 14 109/64 95 12/31/18 00:50 98.5 F 73 18 131/64 96 12/30/18 22:00 102.9 F H 57 L 19 162/81 97 Intake and Output 12/30/18 12/31/18 12/31/18 22:59 06:59 14:59 Other: Voiding Method Toilet Toilet # Voids 2 Weight 108.409 kg 109.6 kg PHYSICAL EXAM: VITAL SIGNS: As above GENERAL: Sitting up in bed, no acute distress HEENT: Conjunctivae normal. eyes normal. Oral mucosa moist NECK: No JVD. No thyroid enlargement. No LNs CARDIOVASCULAR: S1, S2 regular.. No murmur RESPIRATION: Breath sounds diminished in the bases. No rhonchi or crackles. No bronchial breathing. ABDOMEN: Soft, nondistended, nontender . No guarding. no masses palpable. No ascites, No hepatosplenomegaly.Bowel sounds heard. LEGS: No edema. no swelling PSYCHIATRY: Alert and oriented X3, mood and affect normal. NERVOUS SYSTEM: Cranial N 2-12 grossly normal. Moves all 4 limbs. Diffuse weakness No focal deficits. Strength and sensation grossly intact. Skin: no lesions, no rash Lymphatic system. No LN neck axilla or groin. Results CBC & Chem 7: 12/30/18 22:10 12/30/18 22:10 Labs: Abnormal Lab Results - Last 24 Hours (Table) 12/30/18 12/30/18 12/30/18 Range/Units 22:10 22:10 22:10 Lymphocytes # 0.6 L (1.0-4.8) k/uL Sodium 132 L (137-145) mmol/L Carbon Dioxide 18 L (22-30) mmol/L BUN 21 H (7-17) mg/dL Glucose 407 H (74-99) mg/dL POC Glucose (mg/dL) (75-99) mg/dL AST 44 H (14-36) U/L Troponin I 0.043 H* (0.000-0.034) ng/mL Total Protein 6.0 L (6.3-8.2) g/dL Albumin 3.3 L (3.5-5.0) g/dL Urine Appearance (Clear) Urine Glucose (UA) (Negative) Urine Ketones (Negative) Urine Blood (Negative) Ur Leukocyte Esterase (Negative) Urine RBC (0-5) /hpf Urine WBC (0-5) /hpf Urine Bacteria (None) /hpf 12/30/18 12/30/18 12/30/18 Range/Units 22:20 23:20 23:40 Lymphocytes # (1.0-4.8) k/uL Sodium (137-145) mmol/L Carbon Dioxide (22-30) mmol/L BUN (7-17) mg/dL Glucose (74-99) mg/dL POC Glucose (mg/dL) 395 H 368 H (75-99) mg/dL AST (14-36) U/L Troponin I (0.000-0.034) ng/mL Total Protein (6.3-8.2) g/dL Albumin (3.5-5.0) g/dL Urine Appearance Cloudy H (Clear) Urine Glucose (UA) 4+ H (Negative) Urine Ketones Trace H (Negative) Urine Blood Trace H (Negative) Ur Leukocyte Esterase Large H (Negative) Urine RBC 9 H (0-5) /hpf Urine WBC >182 H (0-5) /hpf Urine Bacteria Few H (None) /hpf 12/31/18 12/31/18 Range/Units 02:27 07:16 Lymphocytes # (1.0-4.8) k/uL Sodium (137-145) mmol/L Carbon Dioxide (22-30) mmol/L BUN (7-17) mg/dL Glucose (74-99) mg/dL POC Glucose (mg/dL) 265 H 331 H (75-99) mg/dL AST (14-36) U/L Troponin I (0.000-0.034) ng/mL Total Protein (6.3-8.2) g/dL Albumin (3.5-5.0) g/dL Urine Appearance (Clear) Urine Glucose (UA) (Negative) Urine Ketones (Negative) Urine Blood (Negative) Ur Leukocyte Esterase (Negative) Urine RBC (0-5) /hpf Urine WBC (0-5) /hpf Urine Bacteria (None) /hpf Thrombosis Risk Factor Assmnt - Choose All That Apply Any of the Below Risk Factors Present?: Yes Each Factor Represents 1 point: Obesity (BMI >25) Other Risk Factors: Yes Each Risk Factor Represents 2 Points: Age 61-74 years Other congenital or acquired thrombophilia - If yes, enter type in comment: No Thrombosis Risk Factor Assessment Total Risk Factor Score: 3 Thrombosis Risk Factor Assessment Level: Moderate Risk Assessment and Plan Assessment: -Acute UTI -history of CHF, type currently unknown -Diabetes mellitus1 -Neuropathy -GI Bleed -hypertension -Osteoarthritis -Hypothyroidism -anxiety -Depression -Panic disorder plan: Continue current medication regime ,monitoring and symptomatic treatment. Home meds have been reviewed and resumed. Insulin sliding scale in addition. Diet changed to consistent carb. urine culture ordered. Continue on Rocephin IV piggyback daily with gentle hydration. Up in chair from meals, increase ambul ation as tolerated. GI and DVT prophylaxis in place. Further recommendations to follow. The impression and plan of care has been dictated as directed. : I performed a history and examination of this patient, discussed the same with the dictator. I agree with the dictator's note ,documented as a scribe. Any additional findings or plans will be noted. Time taken:35 minutes
[2018-12-31] MEDS: PANTOPRAZOLE 40 MG/10 ML VIAL IVP SCH (15:25)
[2018-12-31 16:28] LABS: Glucose,Whole Blood 171 mg/dL (75-99)
[2018-12-31 20:45] LABS: Glucose,Whole Blood 114 mg/dL (75-99)
[2018-12-31] MEDS: ALLOPURINOL 300 MG TAB PO SCH (20:49)
[2019-01-01] MEDS: LEVOTHYROXINE 125 MCG TAB PO SCH (06:00)
[2019-01-01 06:55] LABS: Glucose,Whole Blood 85 mg/dL (75-99)
[2019-01-01] MEDS: INSULIN ASPART (NovoLOG) 100 UNIT/ML VIAL SQ SCH ×5 (08:14→20:43)
[2019-01-01] MEDS: PANTOPRAZOLE 40 MG/10 ML VIAL IVP SCH (08:43)
[2019-01-01] MEDS: ENOXAPARIN 40 MG/0.4 ML SYRINGE SQ SCH (08:43)
[2019-01-01] MEDS: LISINOPRIL 10 MG TAB PO SCH (08:44)
[2019-01-01] MEDS: INSULIN DETEMIR (LEVEMIR) 100 UNIT/ML SYR SQ SCH (08:44)
[2019-01-01] MEDS: FLUoxetine HCL 20 MG CAP PO SCH (08:44)
[2019-01-01] MEDS: GABAPENTIN 100 MG CAP PO SCH ×2 (08:44→20:43)
[2019-01-01 11:26] LABS: Glucose,Whole Blood 236 mg/dL (75-99)
[2019-01-01] MEDS ORDERED: INSULIN ASPART (NovoLOG) 100 UNIT/ML VIAL SQ ONE (11:51)
[2019-01-01] MEDS ORDERED: Magnesium Replacement Protocol 1 EACH MISC MISCELLANE PRN (12:01)
--- NOTE | 2019-01-01 12:18 | P.PN ---
Subjective Progress Note Date: 01/01/19 This is a 68-year-old female with history of CHF, diabetes mellitus, neuropathy, GI bleed, hypertension, osteoarthritis, hypothyroidism, pneumonia, hypoxic respiratory failure requiring intubation ,anxiety, depression, recurrent UTIs, panic disorder and multiple other medical issues, presented to the ER with complaints of not feeling well accompanied by fever, confusion, hyperglycemia. On admission temperature 102.9, normal WBC, sodium 132, BUN 21, creatinine 0.67, glucose 407, troponin 0.043, potassium 3.9, magnesium 1.6. UA reported urine RBCs elevated, greater than 182, large leukocytes esterase. Tested negative for influenza. Reports she was waiting in the sun yesterday for an extended amount of time, to be picked up for shopping. Denies nausea, vomiting, diarrhea. Denies abdominal pain. Recently completed a couple weeks at subacute rehab and had returned home. Received gentle IV fluid hydration, IV antibiotics of Rocephin. Significant clinical improvement. This morning blood sugars uncontrolled, patient did not receive long-acting at bedtime insulin, also received a regular diet tray for breakfast. Currently afebrile, T-max 102.9.VSS, no tachycardia. Chest x-ray reporting mild pulmonary edema. Denies chest pain, palpitations or shortness of breath. Denies lightheadedness dizziness or focal deficits. 01/01/2019 Maintained on IV antibiotics, T-max 102.2, currently 99. Reports she developed a headache after the fever last night; currently mild frontal headache-just received Ultram. Good diet intake with no nausea vomiting or diarrhea. Denies abdominal pain. Blood sugars improving. labs pending. Magnesium 1.8 .Telemetry sinus rhythm. Maintaining O2 sats in the mid 90s on room air. Denies chest pain, palpitations or shortness of breath. Outpatient serology reporting reactive hep C IgG Ab, detected hepatitis C viral RNA, elevated hep C RNA Quant & hep C RNA PCR. Patient states daughter, whom she recently lived with has hepatitis C. Objective - Vital Signs Vital signs: Vital Signs Temp 99.0 F 01/01/19 07:34 Pulse 63 01/01/19 07:34 Resp 16 01/01/19 07:34 BP 150/81 01/01/19 07:34 Pulse Ox 96 01/01/19 07:34 Intake & Output 12/31/18 01/01/1901/01/19 18:59 06:59 18:59 Intake Total 360 Balance 360 Weight 111 kg Intake: Intake, IV Titration 360 Amount Sodium Chloride 0.9% 1, 360 000 ml @ 100 mls/hr IV . Q10H STA Rx#:[id number] Other: Voiding Method Toilet Toilet # Voids 1 1 - Labs CBC & Chem 7: 12/30/18 22:10 12/30/18 22:10 Labs: Abnormal Lab Results - Last 24 Hours (Table) 12/31/18 12/31/18 12/31/18 Range/Units 10:58 16:27 20:44 POC Glucose (mg/dL) 333 H 171 H 114 H (75-99) mg/dL Microbiology - Last 24 Hours (Table) 12/31/18 Unknown Urine Culture - Preliminary Urine,Voided Assessment and Plan Assessment: -Acute UTI -history of CHF, type currently unknown -Diabetes mellitus 1 -Neuropathy -GI Bleed -hypertension -Osteoarthritis -Hypothyroidism -anxiety -Depression -Panic disorder -Hypoalbuminemia -Positive Hepatitis C serology, will need further outpatient follow-up with GI. plan: Continue current medication regime ,monitoring and symptomatic treatment. Maintain IV antibiotics. Blood cultures ordered .Pre-meal insulin added to med regime, close monitoring of Accu-Cheks .Protein supplements ordered. Outpatient serology reporting reactive hep C IgG AB, detected hepatitis C viral RNA, GI consulted. Increase ambulation as tolerated. GI and DVT prophylaxis in place. Further recommendations to follow. The impression and plan of care has been dictated as directed. : I performed a history and examination of this patient, discussed the same with the dictator. I agree with the dictator's note ,documented as a scribe. Any additional findings or plans will be noted. Time taken:35 minutes
[2019-01-01 12:36] LABS: Basophils # (A) 0.1 k/uL (0-0.2); Basophils % (A) 1 %; Eosinophils # (A) 0.1 k/uL (0-0.7); Eosinophils % (A) 1 %; HCT 38.5 % (34.0-46.0); HGB 12.5 gm/dL (11.4-16.0); Lymphocytes # (A) 1.5 k/uL (1.0-4.8); Lymphocytes % (A) 12 %; MCH 30.8 pg (25.0-35.0); MCHC 32.5 g/dL (31.0-37.0); MCV 94.9 fL (80.0-100.0); Monocytes # (A) 1.7 k/uL (0-1.0); Monocytes % (A) 14 %; Neutrophils # (A) 8.7 k/uL (1.3-7.7); Neutrophils % (A) 71 %; Platelet Count 150 k/uL (150-450); RBC 4.06 m/uL (3.80-5.40); RDW 15.9 % (11.5-15.5); WBC 12.2 k/uL (3.8-10.6)
[2019-01-01 12:43] LABS: African American GFR (CKD) >90 (>60 ml/min/1.73 sqM); Anion Gap 8 mmol/L; Blood Urea Nitrogen 16 mg/dL (7-17); Calcium 8.8 mg/dL (8.4-10.2); Carbon Dioxide 21 mmol/L (22-30); Chloride 107 mmol/L (98-107); Glucose 73 mg/dL (74-99); Potassium 3.9 mmol/L (3.5-5.1); Sodium 136 mmol/L (137-145)
[2019-01-01 16:56] LABS: Glucose,Whole Blood 214 mg/dL (75-99)
[2019-01-01] MEDS ORDERED: INSULIN ASPART (NovoLOG) 100 UNIT/ML VIAL SQ SCH (17:30)
[2019-01-01 20:28] LABS: Glucose,Whole Blood 223 mg/dL (75-99)
[2019-01-01 20:40] VITALS: RESP 18
[2019-01-01] MEDS: ALLOPURINOL 300 MG TAB PO SCH (20:43)
[2019-01-01] MEDS: ACETAMINOPHEN TAB 325 MG TAB PO PRN (23:03)
[2019-01-02 01:56] VITALS: PULSE 65
[2019-01-02] MEDS: LEVOTHYROXINE 125 MCG TAB PO SCH (05:54)
[2019-01-02 06:58] LABS: Glucose,Whole Blood 165 mg/dL (75-99)
[2019-01-02] MEDS ORDERED: PANTOPRAZOLE 40 MG TABLET PO SCH (07:30)
[2019-01-02] MEDS: FLUoxetine HCL 20 MG CAP PO SCH (07:31)
[2019-01-02] MEDS: GABAPENTIN 100 MG CAP PO SCH (07:31)
[2019-01-02] MEDS: ENOXAPARIN 40 MG/0.4 ML SYRINGE SQ SCH (07:31)
[2019-01-02] MEDS: LISINOPRIL 10 MG TAB PO SCH (07:31)
[2019-01-02] MEDS: INSULIN ASPART (NovoLOG) 100 UNIT/ML VIAL SQ SCH ×4 (07:32→12:07)
[2019-01-02] MEDS: INSULIN DETEMIR (LEVEMIR) 100 UNIT/ML SYR SQ SCH (07:35)
[2019-01-02 07:45] LABS: African American GFR (CKD) >90 (>60 ml/min/1.73 sqM); Anion Gap 6 mmol/L; Blood Urea Nitrogen 18 mg/dL (7-17); Calcium 8.9 mg/dL (8.4-10.2); Carbon Dioxide 23 mmol/L (22-30); Chloride 109 mmol/L (98-107); Glucose 163 mg/dL (74-99); Magnesium 1.8 mg/dL (1.6-2.3); Potassium 4.2 mmol/L (3.5-5.1); Sodium 138 mmol/L (137-145)
[2019-01-02 07:47] VITALS: BP 137/73; TEMP 97.4
[2019-01-02 07:57] LABS: Basophils # (A) 0.1 k/uL (0-0.2); Basophils % (A) 1 %; Eosinophils # (A) 0.3 k/uL (0-0.7); Eosinophils % (A) 5 %; HCT 36.7 % (34.0-46.0); HGB 11.9 gm/dL (11.4-16.0); Lymphocytes # (A) 1.4 k/uL (1.0-4.8); Lymphocytes % (A) 22 %; MCH 30.2 pg (25.0-35.0); MCHC 32.4 g/dL (31.0-37.0); MCV 93.4 fL (80.0-100.0); Mean Platelet Volume 9.1; Monocytes # (A) 0.7 k/uL (0-1.0); Monocytes % (A) 12 %; Neutrophils # (A) 3.6 k/uL (1.3-7.7); Neutrophils % (A) 58 %; Platelet Count 140 k/uL (150-450); RBC 3.94 m/uL (3.80-5.40); RDW 15.9 % (11.5-15.5); WBC 6.3 k/uL (3.8-10.6)
[2019-01-02 11:55] LABS: Glucose,Whole Blood 276 mg/dL (75-99)
--- NOTE | 2019-01-02 12:43 | CONS ---
CONSULTATION DATE OF CONSULTATION: 01/02/2019. REASON FOR CONSULTATION: Chronic hepatitis C infection. HISTORY OF PRESENT ILLNESS: The patient is a 68-year-old pleasant white female who was admitted to the hospital with acute UTI. She was recently diagnosed with chronic hepatitis C infection. She was noted to have mild elevation of serum transaminases on an outpatient basis and hence a hepatitis C antibody was done which was reported as positive. Subsequently hep C RNA was also positive diagnosing her with chronic hepatitis C infection. She does not have any history of chronic liver disease in the past. In view of this, we are consulted for further management. The patient denies any abdominal pain reports no nausea, vomiting. She did have some suprapubic burning pain and subsequently diagnosed with UTI and is on broad-spectrum antibiotics and doing much better. She denies any chronic liver disease in the past. Her daughter was diagnosed with chronic hepatitis C when she was 30 years old. The patient denies any high-risk behavior. No history of blood transfusions. PAST MEDICAL HISTORY: Her past medical history is significant for recurrent UTIs, diabetes mellitus, hypertension, degenerative joint disease, hypothyroidism. PAST SURGICAL HISTORY: Cholecystectomy, umbilical hernia repair, lithotripsy, left total knee arthroplasty. MEDICATIONS AT HOME: Altace, Prozac, Synthroid, Ultram, Tylenol, Zyloprim, Neurontin, Requip, Toujeo. ALLERGIES: Allergies to FORMALDEHYDE, SULFA. FAMILY HISTORY: Mother has chronic liver disease. Father has also diabetes mellitus and alcoholic liver disease. REVIEW OF SYSTEMS: CARDIOPULMONARY: No chest pain, shortness of breath. GENITOURINARY: No dysuria or hematuria. MUSCULOSKELETAL: Unremarkable. SKIN: Unremarkable. ENDOCRINE: Unremarkable. PSYCHIATRIC: Unremarkable. NEUROLOGY: Unremarkable. ENT/VISION: Unremarkable. CONSTITUTIONAL: No recent weight loss. No fever, chills, night sweats. PHYSICAL EXAMINATION: On physical examination, appears comfortable, in no apparent distress. Vital signs are stable. Blood pressure 132/79, pulse rate 65, temperature 98. HEENT examination unremarkable. Conjunctivae pink. Sclerae anicteric. Oral cavity no lesions. NECK: No JVD or lymph node enlargement. CHEST: Clear to auscultation. HEART: Regular rate and rhythm. ABDOMEN: Soft. Bowel sounds are positive. No organomegaly. EXTREMITIES: No pedal edema. SKIN: No rashes. NEURO: Alert and oriented x3. No focal deficits. LABS: WBC is 6.3, hemoglobin 11.9, platelets are 140. AST, ALT are 44 and 40 respectively. T bilirubin and alkaline phosphatase are within normal limits. Hepatitis C antibody positive. Hepatitis C viral RNA is positive. Genotype was not done. IMPRESSION: 1. Acute urinary tract infection on broad-spectrum antibiotics, gradually improving. 2. Chronic hepatitis C infection diagnosed recently. Patient has no high-risk behavior. No blood transfusions in the past. The serum transaminases are minimally elevated and platelets are slightly low at 140,000. Patient probably has underlying chronic liver disease because of chronic hepatitis C infection. RECOMMENDATIONS: I had a lengthy discussion with the patient regarding management of chronic hepatitis C infection. I suggested that she follow up in the office in 2 weeks following discharge from the hospital at which time we will investigate further and consider antiviral therapy and she is agreeable to this plan. Thank you for this consultation. BARBARA / ARTHUR: [id number] /
--- NOTE | 2019-01-02 14:01 | P.DS ---
Providers Date of admission: 01/01/19 14:27 Attending physician: Diogenes Riddle Consults: 01/01/19 08:40 Consult Physician Routine Consulting Provider: Gordon Mendoza Consult Reason/Comments: Hep C panel-abn Do you want consulting provider notified?: Yes Primary care physician: Diogenes Riddle Hospital Course: 68-year-old female admitted with fever and sepsis secondary to urinary tract infection patient is on Rocephin urine cultures are so far negative. Patient was also diagnosed with hepatitis C for which she'll follow with gastroenterology as an outpatient. Patient will be discharged today in stable m edical condition to home on 5 days of Ceftin completed in 7 day of therapy for urinary tract infection with sepsis. Adding pre-meal insulin 5 units along with sliding scale blood sugars are not well-controlled may need to up titrate most probably female insulin even higher than this can be done as an outpatient and patient will be discharged today in stable medical condition to home. Patient is afebrile for more than 24 hours PHYSICAL EXAMINATION: GENERAL: The patient is alert and oriented x3, not in any acute distress. Well developed, well nourished. HEENT: Pupils are round and equally reacting to light. EOMI. No scleral icterus. No conjunctival pallor. Normocephalic, atraumatic. No pharyngeal erythema. No thyromegaly. CARDIOVASCULAR: S1 and S2 present. No murmurs, rubs, or gallops. PULMONARY: Chest is clear to auscultation, no wheezing or crackles. ABDOMEN: Soft, nontender, nondistended, normoactive bowel sounds. No palpable organomegaly. MUSCULOSKELETAL: No joint swelling or deformity. EXTREMITIES: No cyanosis, clubbing, or pedal edema. NEUROLOGICAL: Gross neurological examination did not reveal any focal deficits. SKIN: No rashes. For rest of the chronic medical problems hospitalization course please refer to the dictation a progress note from Dr. Riddle from yesterday Patient Condition at Discharge: Fair Plan - Discharge Summary Discharge Rx Participant: Yes New Discharge Prescriptions: New Cefuroxime Axetil [Ceftin] 500 mg PO BID 5 Days #10 tab INSULIN ASPART (NovoLOG) [NovoLOG (formulary)] 5 unit SQ AC-TID vial Continue Ramipril [Altace] 2.5 mg PO DAILY FLUoxetine HCL [PROzac] 20 mg PO DAILY Levothyroxine Sodium [Synthroid] 50 mcg PO DAILY Levothyroxine Sodium [Synthroid] 200 mcg PO DAILY traMADol HCl [Ultram] 50 mg PO Q8H PRN #30 tab PRN Reason: Pain Insulin Glargine,Hum.rec.anlog [Toujeo Solostar] 30 units SQ HS Gabapentin [Neurontin] 100 mg PO BID Allopurinol [Zyloprim] 300 mg PO HS Acetaminophen [Tylenol] 650 mg PO Q6H PRN PRN Reason: Pain rOPINIRole HCL [Requip] 0.5 mg PO BID Insulin Lispro [humaLOG Kwikpen] See Protocol SQ AC-TID Discharge Medication List Ramipril [Altace] 2.5 mg PO DAILY 01/19/16 [History] FLUoxetine HCL [PROzac] 20 mg PO DAILY 02/15/17 [History] Levothyroxine Sodium [Synthroid] 50 mcg PO DAILY 04/14/18 [History] Levothyroxine Sodium [Synthroid] 200 mcg PO DAILY 04/14/18 [History] traMADol HCl [Ultram] 50 mg PO Q8H PRN #30 tab 09/16/18 [Rx] Acetaminophen [Tylenol] 650 mg PO Q6H PRN 12/30/18 [History] Allopurinol [Zyloprim] 300 mg PO HS 12/30/18 [History] Gabapentin [Neurontin] 100 mg PO BID 12/30/18 [History] Insulin Glargine,Hum.rec.anlog [Toujeo Solostar] 30 units SQ HS 12/30/18 [History] Insulin Lispro [humaLOG Kwikpen] See Protocol SQ AC-TID 12/30/18 [History] rOPINIRole HCL [Requip] 0.5 mg PO BID 12/30/18 [History] Cefuroxime Axetil [Ceftin] 500 mg PO BID 5 Days #10 tab 01/02/19 [Rx] INSULIN ASPART (NovoLOG) [NovoLOG (formulary)] 5 unit SQ AC-TID vial 01/02/19 [Rx] Follow up Appointment(s)/Referral(s): Diogenes Riddle DO [Primary Care Provider] - 3 Days Monet Vergara MD [STAFF PHYSICIAN] - 2 Weeks [facility], [NON-STAFF] - Discharge Disposition: HOME WITH HOME HEALTH SERVICES
== END 2019-01-02 14:22 | disposition home health service (06) | DRG 872 ==
LOC: EC 21:56 → 4SSUR 23:40 → OBSVTOIN 01-01 14:27
PROVIDERS: ADMIT Family Medicine; ATTEND Family Medicine
DX: A41.9 Sepsis, unspecified organism (principal); N39.0 Urinary tract infection, site not specified; M19.042 Primary osteoarthritis, left hand; M19.041 Primary osteoarthritis, right hand; M19.072 Primary osteoarthritis, left ankle and foot; M19.071 Primary osteoarthritis, right ankle and foot; Z87.19 Personal history of other diseases of the digestive system; Z87.01 Personal history of pneumonia (recurrent); Z87.440 Personal history of urinary (tract) infections; Z87.442 Personal history of urinary calculi; I50.9 Heart failure, unspecified; B18.2 Chronic viral hepatitis C; E03.9 Hypothyroidism, unspecified; Z79.4 Long term (current) use of insulin; E10.65 Type 1 diabetes mellitus with hyperglycemia; E86.0 Dehydration; E88.09 Other disorders of plasma-protein metabolism, not elsewhere classified; F32.9 Major depressive disorder, single episode, unspecified; F41.0 Panic disorder [episodic paroxysmal anxiety]; G25.81 Restless legs syndrome; I11.0 Hypertensive heart disease with heart failure; Z79.890 Hormone replacement therapy; Z79.899 Other long term (current) drug therapy; Z81.8 Family history of other mental and behavioral disorders; Z83.3 Family history of diabetes mellitus; Z96.652 Presence of left artificial knee joint; Z81.1 Family history of alcohol abuse and dependence; Z83.79 Family history of other diseases of the digestive system; Z90.49 Acquired absence of other specified parts of digestive tract; Z60.2 Problems related to living alone; Z88.2 Allergy status to sulfonamides; Z88.8 Allergy status to other drugs, medicaments and biological substances; K57.90 Diverticulosis of intestine, part unspecified, without perforation or abscess without bleeding; E10.40 Type 1 diabetes mellitus with diabetic neuropathy, unspecified
CPT/HCPCS: 36415; 71046; 80048; 80053; 81001; 82550; 83605; 83735; 83880; 84100; 84484; 85025; 85610; 85730; 87040; 87086; 87502; 93005; 96361; 96365; 99285

== ENCOUNTER 2019-02-28 16:19 | Observation (INO) | payer MEDICARE, BC ==
[2019-02-28] MEDS ORDERED: SODIUM CHLORIDE 0.9% 1,000 ML IV STA (16:32)
[2019-02-28] MEDS ORDERED: PANTOPRAZOLE 40 MG/10 ML VIAL IVP STA (16:32)
[2019-02-28] MEDS ORDERED: MORPHINE SULFATE 4 MG/ML SYRINGE IVP STA (16:47)
[2019-02-28] MEDS ORDERED: ONDANSETRON 4 MG/2 ML VIAL IVP STA (16:47)
--- NOTE | 2019-02-28 16:49 | ED ---
Abdominal Pain HPI <Kuldip Vazquez - Last Filed: 02/28/19 19:43> - General Source: patient, family, RN notes reviewed, old records reviewed Mode of arrival: wheelchair Limitations: no limitations <MonoYvonne - Last Filed: 02/28/19 20:18> - General Chief Complaint: Abdominal Pain Stated Complaint: LEFT SIDE PAIN Time Seen by Provider: 02/28/19 16:32 - History of Present Illness Initial Comments: Patient is a 5-year-old female history of frequent urinary tract infections. She presents emergency department today with 2 days of left-sided abdominal pain and flank pain. She does complain of some nausea. He stated that she had some episodes of some left breast pain. She states she's been having off and on for quite some time, reports his been worse over the past day. Patient denies any fevers or chills. She reports that she finish all her antibiotics from her last UTI approximately one month ago. Patient denies any associated vomiting. She reports normal stools. (Yvonne Villareal) - Related Data Home Medications Medication Instructions Recorded Confirmed Ramipril [Altace] 2.5 mg PO DAILY 01/19/16 12/30/18 FLUoxetine HCL [PROzac] 20 mg PO DAILY 02/15/17 12/30/18 Levothyroxine Sodium [Synthroid] 50 mcg PO DAILY 04/14/18 12/30/18 Levothyroxine Sodium [Synthroid] 200 mcg PO DAILY 04/14/18 12/30/18 Acetaminophen [Tylenol] 650 mg PO Q6H PRN 12/30/18 12/30/18 Allopurinol [Zyloprim] 300 mg PO HS 12/30/18 12/30/18 Gabapentin [Neurontin] 100 mg PO BID 12/30/18 12/30/18 Insulin Glargine,Hum.rec.anlog 30 units SQ HS 12/30/18 12/30/18 [Toujeo Solostar] Insulin Lispro [humaLOG Kwikpen] See Protocol SQ AC-TID 12/30/18 12/30/18 rOPINIRole HCL [Requip] 0.5 mg PO BID 12/30/18 12/30/18 Previous Rx's Medication Instructions Recorded traMADol HCl [Ultram] 50 mg PO Q8H PRN #30 tab 09/16/18 Cefuroxime Axetil [Ceftin] 500 mg PO BID 5 Days #10 tab 01/02/19 INSULIN ASPART (NovoLOG) [NovoLOG 5 unit SQ AC-TID vial 01/02/19 (formulary)] Allergies Allergy/AdvReac Type Severity Reaction Status Date / Time formaldehyde Allergy Itching Verified 02/28/19 16:25 nickel Allergy Itching Verified 02/28/19 16:25 quaternium Allergy Itching Verified 02/28/19 16:25 Sulfa (Sulfonamide Allergy Itching Verified 02/28/19 16:25 Antibiotics) Review of Systems ROS Other: All systems not noted in ROS Statement are negative. <Kuldip Vazquez - Last Filed: 02/28/19 19:43> ROS Other: All systems not noted in ROS Statement are negative. <Yvonne Villareal - Last Filed: 02/28/19 20:18> ROS Statement: Those systems with pertinent positive or pertinent negative responses have been documented in the HPI. Past Medical History Past Medical History: Heart Failure, Diabetes Mellitus, GI Bleed, Hypertension, Osteoarthritis (OA), Thyroid Disorder Additional Past Medical History / Comment(s): IDDM type I per pt, peripheral neuropathy bilateral hands and feet, arthritis bilateral hands, occasional low back pain, gout L great toe, hypothyroid, L great toe callus, lower GI bleed, diverticulosis, RLS. hep C History of Any Multi-Drug Resistant Organisms: None Reported Past Surgical History: Cholecystectomy, Hernia Repair, Joint Replacement Additional Past Surgical History / Comment(s): Umbilical hernia repair, kidney stone basketing and lithotripsy, total L knee arthroplasty, colonoscopy. Past Anesthesia/Blood Transfusion Reactions: Postoperative Nausea & Vomiting (PONV) Additional Past Anesthesia/Blood Transfusion Reaction / Comment(s): Ponv x1. Past Psychological History: Anxiety, Depression, Panic Disorder Smoking Status: Never smoker Past Alcohol Use History: None Reported Past Drug Use History: None Reported - Past Family History Father History Unknown: Yes Family Medical History: Diabetes Mellitus Additional Family Medical History / Comment(s): etoh Mother Family Medical History: Liver Disease Additional Family Medical History / Comment(s): etoh Brother(s) Additional Family Medical History / Comment(s): depression, etoh <Yvonne Villareal - Last Filed: 09/08/19 20:18> General Exam Limitations: no limitations General appearance: alert, in no apparent distress Head exam: Present: atraumatic, normocephalic, normal inspection Eye exam: Present: normal appearance, PERRL, EOMI. Absent: scleral icterus, conjunctival injection, periorbital swelling ENT exam: Present: normal exam, mucous membranes moist Neck exam: Present: normal inspection. Absent: tenderness, meningismus, lymphadenopathy Respiratory exam: Present: normal lung sounds bilaterally. Absent: respiratory distress, wheezes, rales, rhonchi, stridor Cardiovascular Exam: Present: regular rate, normal rhythm, normal heart sounds. Absent: systolic murmur, diastolic murmur, rubs, gallop, clicks GI/Abdominal exam: Present: soft, tenderness (L flank, L UQ tenderness, ), normal bowel sounds. Absent: distended, guarding, rebound, rigid Extremities exam: Present: normal inspection, full ROM, normal capillary refill. Absent: tenderness, pedal edema, joint swelling, calf tenderness Back exam: Present: normal inspection Neurological exam: Present: alert, oriented X3, CN II-XII intact Psychiatric exam: Present: normal affect, normal mood <Yvonne Villareal - Last Filed: 02/28/19 20:18> - General Exam Comments Initial Comments: 68-year-old female. Alert and oriented. No distress. (Yvonne Villareal) Course <Kuldip Vazquez - Last Filed: 02/28/19 19:43> Vital Signs 02/28/19 02/28/19 02/28/19 16:22 18:51 20:01 Temperature 98 F 97 F L Pulse Rate 76 65 67 Respiratory 18 18 18 Rate Blood Pressure 151/73 130/65 142/85 O2 Sat by Pulse 100 96 96 Oximetry - Reevaluation(s) Reevaluation #1: 02/28/19 19:43 PA supervision: I proceeded [id number] evaluation the patient she did present with complaints of left flank pain also left chest pain. She does have evidence of urinary tract infection as the source of the majority of the pain in the flank. She does demonstrate also dehydration. Patient will be admitted for evaluation of chest pain. The case is discussed with Dr. Sutton (Kuldip Vazquez) Medical Decision Making - Lab Data Result diagrams: 02/28/19 17:02 02/28/19 17:02 <Kuldip Vazquez - Last Filed: 02/28/19 19:43> - Lab Data Result diagrams: 02/28/19 17:02 02/28/19 17:02 - Radiology Data Radiology results: report reviewed <Yvonne Villareal - Last Filed: 02/28/19 20:18> - Medical Decision Making Patient is a 5-year-old female process returns today with chief complaint of left flank pain. She also complains some left chest discomfort. It seemed to be worked breast pain but is not reproducible on palpation. Patient's EKG was region no acute changes. Troponin was normal. Lab work did show evidence of inferior tract infection. Urine culture completed. She is given 2 g of Rocephin IV and started on maintenance fluids. She has continued to complain of some left chest discomfort. Is given aspirin. This time I discussed this with Dr. Vazquez who also examined the Patient. This time [place] the Patient for UTI, rule out chest pain. Discussed case with Dr. Griffiths. (Yvonne Villareal) - Lab Data Lab Results 02/28/19 02/28/19 02/28/19 Range/Units 17:02 17:02 17:02 WBC (3.8-10.6) k/uL RBC (3.80-5.40) m/uL Hgb (11.4-16.0) gm/dL Hct (34.0-46.0) % MCV (80.0-100.0) fL MCH (25.0-35.0) pg MCHC (31.0-37.0) g/dL RDW (11.5-15.5) % Plt Count (150-450) k/uL Neutrophils % % Lymphocytes % % Monocytes % % Eosinophils % % Basophils % % Neutrophils # (1.3-7.7) k/uL Lymphocytes # (1.0-4.8) k/uL Monocytes # (0-1.0) k/uL Eosinophils # (0-0.7) k/uL Basophils # (0-0.2) k/uL PT (9.0-12.0) sec INR (<1.2) APTT (22.0-30.0) sec Sodium 139 (137-145) mmol/L Potassium 4.4 (3.5-5.1) mmol/L Chloride 104 (98-107) mmol/L Carbon Dioxide 23 (22-30) mmol/L Anion Gap 12 mmol/L BUN 27 H (7-17) mg/dL Creatinine 1.04 (0.52-1.04) mg/dL Est GFR (CKD-EPI)AfAm 63 (>60 ml/min/1.73 sqM) Est GFR (CKD-EPI)NonAf 55 (>60 ml/min/1.73 sqM) Glucose 170 H (74-99) mg/dL Plasma Lactic Acid Guicho (0.7-2.0) mmol/L Calcium 9.8 (8.4-10.2) mg/dL Total Bilirubin 0.7 (0.2-1.3) mg/dL AST 36 (14-36) U/L ALT 34 (9-52) U/L Alkaline Phosphatase 93 (38-126) U/L Troponin I 0.016 (0.000-0.034) ng/mL NT-Pro-B Natriuret Pep 579 pg/mL Total Protein 7.0 (6.3-8.2) g/dL Albumin 4.2 (3.5-5.0) g/dL Amylase <30 L (30-110) U/L Lipase 21 L (23-300) U/L Urine Color Urine Appearance (Clear) Urine pH (5.0-8.0) Ur Specific [place] (1.001-1.035) Urine Protein (Negative) Urine Glucose (UA) (Negative) Urine Ketones (Negative) Urine Blood (Negative) Urine Nitrite (Negative) Urine Bilirubin (Negative) Urine Urobilinogen (<2.0) mg/dL Ur Leukocyte Esterase (Negative) Urine WBC (0-5) /hpf Ur Squamous Epith Cells (0-4) /hpf Amorphous Sediment (None) /hpf Hyaline Casts (0-2) /lpf Urine Mucus (None) /hpf 02/28/19 02/28/19 02/28/19 Range/Units 17:02 17:02 17:02 WBC 8.1 (3.8-10.6) k/uL RBC 4.38 (3.80-5.40) m/uL Hgb 13.4 (11.4-16.0) gm/dL Hct 41.0 (34.0-46.0) % MCV 93.5 (80.0-100.0) fL MCH 30.7 (25.0-35.0) pg MCHC 32.8 (31.0-37.0) g/dL RDW 14.6 (11.5-15.5) % Plt Count 183 (150-450) k/uL Neutrophils % 65 % Lymphocytes % 24 % Monocytes % 6 % Eosinophils % 3 % Basophils % 1 % Neutrophils # 5.3 (1.3-7.7) k/uL Lymphocytes # 1.9 (1.0-4.8) k/uL Monocytes # 0.5 (0-1.0) k/uL Eosinophils # 0.2 (0-0.7) k/uL Basophils # 0.1 (0-0.2) k/uL PT 10.5 (9.0-12.0) sec INR 1.0 (<1.2) APTT 22.7 (22.0-30.0) sec Sodium (137-145) mmol/L Potassium (3.5-5.1) mmol/L Chloride (98-107) mmol/L Carbon Dioxide (22-30) mmol/L Anion Gap mmol/L BUN (7-17) mg/dL Creatinine (0.52-1.04) mg/dL Est GFR (CKD-EPI)AfAm (>60 ml/min/1.73 sqM) Est GFR (CKD-EPI)NonAf (>60 ml/min/1.73 sqM) Glucose (74-99) mg/dL Plasma Lactic Acid Guicho 2.2 H* (0.7-2.0) mmol/L Calcium (8.4-10.2) mg/dL Total Bilirubin (0.2-1.3) mg/dL AST (14-36) U/L ALT (9-52) U/L Alkaline Phosphatase (38-126) U/L Troponin I (0.000-0.034) ng/mL NT-Pro-B Natriuret Pep pg/mL Total Protein (6.3-8.2) g/dL Albumin (3.5-5.0) g/dL Amylase (30-110) U/L Lipase (23-300) U/L Urine Color Urine Appearance (Clear) Urine pH (5.0-8.0) Ur Specific [place] (1.001-1.035) Urine Protein (Negative) Urine Glucose (UA) (Negative) Urine Ketones (Negative) Urine Blood (Negative) Urine Nitrite (Negative) Urine Bilirubin (Negative) Urine Urobilinogen (<2.0) mg/dL Ur Leukocyte Esterase (Negative) Urine WBC (0-5) /hpf Ur Squamous Epith Cells (0-4) /hpf Amorphous Sediment (None) /hpf Hyaline Casts (0-2) /lpf Urine Mucus (None) /hpf 02/28/19 Range/Units 18:31 WBC (3.8-10.6) k/uL RBC (3.80-5.40) m/uL Hgb (11.4-16.0) gm/dL Hct (34.0-46.0) % MCV (80.0-100.0) fL MCH (25.0-35.0) pg MCHC (31.0-37.0) g/dL RDW (11.5-15.5) % Plt Count (150-450) k/uL Neutrophils % % Lymphocytes % % Monocytes % % Eosinophils % % Basophils % % Neutrophils # (1.3-7.7) k/uL Lymphocytes # (1.0-4.8) k/uL Monocytes # (0-1.0) k/uL Eosinophils # (0-0.7) k/uL Basophils # (0-0.2) k/uL PT (9.0-12.0) sec INR (<1.2) APTT (22.0-30.0) sec Sodium (137-145) mmol/L Potassium (3.5-5.1) mmol/L Chloride (98-107) mmol/L Carbon Dioxide (22-30) mmol/L Anion Gap mmol/L BUN (7-17) mg/dL Creatinine (0.52-1.04) mg/dL Est GFR (CKD-EPI)AfAm (>60 ml/min/1.73 sqM) Est GFR (CKD-EPI)NonAf (>60 ml/min/1.73 sqM) Glucose (74-99) mg/dL Plasma Lactic Acid [place] (0.7-2.0) mmol/L Calcium (8.4-10.2) mg/dL Total Bilirubin (0.2-1.3) mg/dL AST (14-36) U/L ALT (9-52) U/L Alkaline Phosphatase (38-126) U/L Troponin I (0.000-0.034) ng/mL NT-Pro-B Natriuret Pep pg/mL Total Protein (6.3-8.2) g/dL Albumin (3.5-5.0) g/dL Amylase (30-110) U/L Lipase (23-300) U/L Urine Color Yellow Urine Appearance Cloudy H (Clear) Urine pH 6.0 (5.0-8.0) Ur Specific [place] 1.023 (1.001-1.035) Urine Protein Trace H (Negative) Urine Glucose (UA) Negative (Negative) Urine Ketones Negative (Negative) Urine Blood Negative (Negative) Urine Nitrite Positive H (Negative) Urine Bilirubin Negative (Negative) Urine Urobilinogen 2.0 (<2.0) mg/dL Ur Leukocyte Esterase Large H (Negative) Urine WBC >182 H (0-5) /hpf Ur Squamous Epith Cells 10 H (0-4) /hpf Amorphous Sediment Rare H (None) /hpf Hyaline Casts 7 H (0-2) /lpf Urine Mucus Rare H (None) /hpf 02/28/19 19:00 EKG performed at 1707 shows normal sinus rhythm possible anterolateral infarct age undetermined. Abnormal EKG. Ventricular rate of 67 bpm. Was 176 most seconds. She buddhism 84 ms. QT QTc is 420/443 ms. (Yvonne Villareal) - Radiology Data Chest x-ray is negative for active cardiac apply disease. Normal heart. Mild thoracic dextroscoliosis. No change. KUB shows a nonacute abdomen lumbar level scoliosis. No change. (Yvonne Villareal) Disposition <Kuldip Vazquez - Last Filed: 02/28/19 19:43> Is patient prescribed a controlled substance at d/c from ED?: No Time of Disposition: 20:18 <Yvonne Villareal - Last Filed: 02/28/19 20:18> Clinical Impression: UTI (urinary tract infection), Chest pain Disposition: ADMITTED IP TO THIS HOSP Condition: Stable Referrals: Diogenes Riddle DO [Primary Care Provider] - 1-2 days
[2019-02-28 17:19] LABS: Basophils # (A) 0.1 k/uL (0-0.2); Basophils % (A) 1 %; Eosinophils # (A) 0.2 k/uL (0-0.7); Eosinophils % (A) 3 %; HGB 13.4 gm/dL (11.4-16.0); Lymphocytes # (A) 1.9 k/uL (1.0-4.8); Lymphocytes % (A) 24 %; MCH 30.7 pg (25.0-35.0); MCHC 32.8 g/dL (31.0-37.0); MCV 93.5 fL (80.0-100.0); Mean Platelet Volume 8.5; Monocytes # (A) 0.5 k/uL (0-1.0); Monocytes % (A) 6 %; Neutrophils # (A) 5.3 k/uL (1.3-7.7); Neutrophils % (A) 65 %; Platelet Count 183 k/uL (150-450); RBC 4.38 m/uL (3.80-5.40); RDW 14.6 % (11.5-15.5); WBC 8.1 k/uL (3.8-10.6)
[2019-02-28 17:33] LABS: Partial Thromboplastin Time 22.7 sec (22.0-30.0); Prothrombin Time 10.5 sec (9.0-12.0)
[2019-02-28 17:36] LABS: ALT 34 U/L (9-52); AST 36 U/L (14-36); African American GFR (CKD) 63 (>60 ml/min/1.73 sqM); Albumin 4.2 g/dL (3.5-5.0); Alkaline Phosphatase 93 U/L (38-126); Amylase <30 U/L (30-110); Anion Gap 12 mmol/L; Blood Urea Nitrogen 27 mg/dL (7-17); Calcium 9.8 mg/dL (8.4-10.2); Carbon Dioxide 23 mmol/L (22-30); Chloride 104 mmol/L (98-107); Glucose 170 mg/dL (74-99); Potassium 4.4 mmol/L (3.5-5.1); Sodium 139 mmol/L (137-145); Total Bilirubin 0.7 mg/dL (0.2-1.3)
[2019-02-28 18:46] LABS: Amorphous Sediment,Urine Rare /hpf; Appearance,Urine Cloudy (Clear); Bilirubin,Urine Negative (Negative); Blood,Urine Negative (Negative); Color,Urine Yellow; Glucose,Urine (UA) Negative (Negative); Hyaline Casts,Urine 7 /lpf (0-2); Ketones,Urine Negative (Negative); Leukocyte Esterase,Urine Large (Negative); Mucus,Urine Rare /hpf; Nitrite,Urine Positive (Negative); Protein,Urine Trace (Negative); Specific Gravity,Urine 1.023 (1.001-1.035); Squamous Epithelial Cell,Urine 10 /hpf (0-4); WBC,Urine >182 /hpf (0-5)
--- NOTE | 2019-02-28 18:47 | XR ---
EXAMINATION TYPE: XR KUB DATE OF EXAM: 02/28/2019 COMPARISON: 02/13/2016 HISTORY: Left-sided abdominal pain TECHNIQUE: 2 views upright FINDINGS: There is mild lumbar levoscoliosis. There are clips from cholecystectomy. Lung bases are cl ear. There is no sign of intestinal obstruction or pneumoperitoneum. Fecal pattern is normal. There a re no pathologic calcifications over the kidneys. IMPRESSION: Nonacute abdomen. Lumbar levoscoliosis. No change.
--- NOTE | 2019-02-28 18:48 | XR ---
EXAMINATION TYPE: XR chest 2V DATE OF EXAM: 02/28/2019 COMPARISON: 12/30/2018 HISTORY: Left side abdominal pain TECHNIQUE: Frontal and lateral views of the chest are obtained. FINDINGS: There is no heart failure nor confluent pneumonic infiltrate. Costophrenic angles are april r. There is osteopenia. Thoracic aorta is atheromatous. IMPRESSION: No active cardiopulmonary disease. Normal heart. Mild thoracic dextroscoliosis. No grimes e.
[2019-02-28] MEDS ORDERED: cefTRIAXone IN SWFI 1,000 MG/10 ML SYRINGE IVP STA (18:51)
[2019-02-28] MEDS ORDERED: SODIUM CHLORIDE 0.9% 1,000 ML IV ONE (19:13)
[2019-02-28] MEDS ORDERED: ASPIRIN 325 MG TAB PO STA (19:51)
[2019-02-28] MEDS ORDERED: KETOROLAC 30 MG/ML 1 ML VIAL IVP STA (19:51)
[2019-02-28] MEDS ORDERED: NITROGLYCERIN SL TABS 0.4 MG TAB SUBLINGUAL PRN (20:18)
[2019-02-28] MEDS: SODIUM CHLORIDE 0.9% 1,000 ML IV SCH (20:35)
[2019-02-28] MEDS ORDERED: traMADol 50 MG TAB PO PRN (20:48)
[2019-02-28] MEDS ORDERED: ACETAMINOPHEN TAB 325 MG TAB PO PRN (20:48)
[2019-02-28] MEDS ORDERED: ALLOPURINOL 300 MG TAB PO SCH (21:00)
[2019-02-28] MEDS ORDERED: INSULIN DETEMIR (LEVEMIR) 100 UNIT/ML SYR SQ SCH (21:00)
[2019-02-28 21:40] LABS: Glucose,Whole Blood 108 mg/dL (75-99)
[2019-02-28] MEDS: GABAPENTIN 100 MG CAP PO SCH (22:30)
[2019-02-28] MEDS: HEPARIN SODIUM,PORCINE 5,000 UNIT/ML 1 ML VIAL SQ SCH (22:31)
[2019-03-01] MEDS: SODIUM CHLORIDE 0.9% 1,000 ML IV SCH (05:32)
[2019-03-01 05:55] LABS: Basophils % (A) 1 %; Eosinophils # (A) 0.3 k/uL (0-0.7); Eosinophils % (A) 6 %; HCT 35.5 % (34.0-46.0); HGB 11.8 gm/dL (11.4-16.0); Lymphocytes # (A) 1.4 k/uL (1.0-4.8); Lymphocytes % (A) 32 %; MCH 32.1 pg (25.0-35.0); MCHC 33.4 g/dL (31.0-37.0); MCV 96.1 fL (80.0-100.0); Mean Platelet Volume 8.5; Monocytes # (A) 0.4 k/uL (0-1.0); Monocytes % (A) 9 %; Neutrophils # (A) 2.2 k/uL (1.3-7.7); Neutrophils % (A) 50 %; Platelet Count 140 k/uL (150-450); RBC 3.69 m/uL (3.80-5.40); RDW 14.5 % (11.5-15.5); WBC 4.4 k/uL (3.8-10.6)
[2019-03-01 06:21] LABS: Calcium 8.9 mg/dL (8.4-10.2); Potassium 4.8 mmol/L (3.5-5.1)
[2019-03-01] MEDS ORDERED: LEVOTHYROXINE 50 MCG TAB PO SCH (06:30)
[2019-03-01] MEDS ORDERED: LEVOTHYROXINE 100 MCG TAB PO SCH (06:30)
[2019-03-01 07:04] LABS: Glucose,Whole Blood 183 mg/dL (75-99)
[2019-03-01 07:25] VITALS: RESP 17
[2019-03-01] MEDS ORDERED: PANTOPRAZOLE 40 MG TABLET PO SCH (07:30)
[2019-03-01] MEDS ORDERED: DIPYRIDAMOLE IV ONE (08:02)
[2019-03-01] MEDS ORDERED: SODIUM CHLORIDE 0.9% IV ONE (08:02)
[2019-03-01] MEDS ORDERED: CAFFEINE CITRATE 60 MG/3 ML VIAL IV PRN (08:02)
[2019-03-01] MEDS ORDERED: AMINOPHYLLINE 500 MG/20 ML VIAL IV PRN (08:02)
[2019-03-01] MEDS ORDERED: LISINOPRIL 10 MG TAB PO SCH (09:00)
[2019-03-01] MEDS ORDERED: ASPIRIN 81 MG PO SCH (09:00)
[2019-03-01] MEDS ORDERED: ASPIRIN 325 MG TAB PO SCH (09:00)
[2019-03-01] MEDS ORDERED: FLUoxetine HCL 20 MG CAP PO SCH (09:00)
--- NOTE | 2019-03-01 09:47 | P.CRDCN ---
History of Present Illness History of present illness: This is a pleasant 68-year-old female past medical history significant for diabetes mellitus, hypertension, neuropathy, hepatitis C and gout. She denies history of coronary artery disease and does not follow regularly with a fur mixer for any reason. We have been asked to see her in consultation for chest pain. She presented to the hospital with symptoms of left flank and abd ominal discomfort. She has been diagnosed with a UTI. Also she describes a discomfort in the left breast that is tender, crampy and tight at times. The pain is not reproducible on palpation. At times there is radiation to the mid- sternal region as well. Her chest pain is associated with mild shortness of breath and some intermittent nausea. She states she had been moving furniture at home yesterday prior to the chest pain starting. EKG reveals normal sinus mechanism with non-specific changes. No acute ST or T- wave abnormalities. Chest xray is negative for an acute cardiopulmonary process. Laboratory data reviewed, WBC 4.4, hemoglobin 11.8, platelets 140, sodium 138, potassium 4.8, creatinine 1.01, cardiac enzymes negative 3, LDL 54, proBNP 579, lactic acid on admission 2. 2 repeat 0.9. Current cardiac medications include ramipril 2.5 mg daily. Most recent echocardiogram obtained 08/2018 reveals preserved LV systolic function with EF 55-60%. At the time of my exam: CONSTITUTIONAL: Denies fever. Denies chills. EYES: Denies blurred vision. Denies vision changes. Denies eye pain. EARS, NOSE, MOUTH & THROAT: Denies headache. Denies sore throat. Denies ear pain. CARDIOVASCULAR: Denies chest pain. Denies shortness of breath. Denies orthopnea. Denies PND. Denies palpitations. RESPIRATORY: Denies cough. GASTROINTESTINAL: Denies abdominal pain. Denies diarrhea. Denies constipation. Denies nausea. Denies vomiting. MUSCULOSKELETAL: Denies myalgias. INTEGUMENTARY: Denies pruitis. Denies rash. NEUROLOGIC: Denies numbness. Denies tingling. Denies weakness. PSYCHIATRIC: Denies anxiety. Denies depression. ENDOCRINE: Denies fatigue. Denies weight change. Denies polydipsia. Denies arlene yurina. GENITOURINARY: Denies burning, hematuria or urgency with micturation. HEMATOLOGIC: Denies history of anemia. Denies bleeding. Blood pressure 127/76 heart rate 68 afebrile maintaining oxygen saturation on room air GENERAL: This is a 68-year-old female in no apparent distress at the time of my examination. HEENT: Head is atraumatic, normocephalic. Pupils are equal, round. Sclerae anicteric. Conjunctivae are clear. Mucous membranes of the mouth are moist. Neck is supple. There is no jugular venous distention. No carotid bruit is heard. LUNGS: Clear to auscultation no wheezes, rales or rhonchi. No chest wall tenderness is noted on palpation or with deep breathing. HEART: Regular rate and rhythm without murmurs, rubs or gallops. S1 and S2 heard. ABDOMEN: Soft, nontender. Bowel sounds are heard. No organomegaly noted. EXTREMITIES: No evidence of peripheral edema and no calf tenderness noted. VASCULAR: Radial and dorsalis pedis pulses palpated, no evidence of clubbing. NEUROLOGIC: Patient is awake, alert and oriented x3. ASSESSMENT Chest pain, atypical. An acute coronary event has been ruled out. Urinary tract infection Lactic acidosis Thrombocytopenia Diabetes mellitus Hypertension PLAN An acute coronary event has been ruled out. Symptoms are quite atypical however given her history of diabetes this places her at an increased risk as well as atypical presentation. Recommend proceeding with Persantine stress test to assess for reversible cardiac ischemia. If stress test is normal she may be discharged from a cardiac perspective. Coronary angiography will be considered if any abnormalities noted. Thank you kindly for this consultation. Nurse Practitioner note has been reviewed, I agree with a documented findings and plan of care. Patient was seen and examined. Past Medical History Past Medical History: Heart Failure, Diabetes Mellitus, GI Bleed, Hypertension, Osteoarthritis (OA), Thyroid Disorder Additional Past Medical History / Comment(s): IDDM type I per pt, peripheral neuropathy bilateral hands and feet, arthritis bilateral hands, occasional low back pain, gout L great toe, hypothyroid, L great toe callus, lower GI bleed, diverticulosis, RLS. hep C History of Any Multi-Drug Resistant Organisms: None Reported Past Surgical History: Cholecystectomy, Hernia Repair, Joint Replacement Additional Past Surgical History / Comment(s): Umbilical hernia repair, kidney stone basketing and lithotripsy, total L knee arthroplasty, colonoscopy. Past Anesthesia/Blood Transfusion Reactions: Postoperative Nausea & Vomiting (PONV) Additional Past Anesthesia/Blood Transfusion Reaction / Comment(s): Ponv x1. Past Psychological History: Anxiety, Depression, Panic Disorder Smoking Status: Never smoker Past Alcohol Use History: None Reported Past Drug Use History: None Reported - Past Family History Father History Unknown: Yes Family Medical History: Diabetes Mellitus Additional Family Medical History / Comment(s): etoh Mother Family Medical History: Liver Disease Additional Family Medical History / Comment(s): etoh Brother(s) Additional Family Medical History / Comment(s): depression, etoh Medications and Allergies Home Medications Medication Instructions Recorded Confirmed Type Ramipril [Altace] 2.5 mg PO DAILY 01/19/16 02/28/19 History FLUoxetine HCL [PROzac] 20 mg PO DAILY 02/15/17 02/28/19 History Levothyroxine Sodium [Synthroid] 50 mcg PO DAILY 04/14/18 02/28/19 History Levothyroxine Sodium [Synthroid] 200 mcg PO DAILY 04/14/18 02/28/19 History traMADol HCl [Ultram] 50 mg PO Q8H PRN #30 tab 09/16/18 02/28/19 Rx Acetaminophen [Tylenol] 650 mg PO Q6H PRN 12/30/18 02/28/19 History Allopurinol [Zyloprim] 300 mg PO HS 12/30/18 02/28/19 History Gabapentin [Neurontin] 100 mg PO BID 12/30/18 02/28/19 History Insulin Glargine,Hum.rec.anlog 30 units SQ HS 12/30/18 02/28/19 History [Toumaxo Solostar] Insulin Lispro [humaLOG Kwikpen] See Protocol SQ AC-TID 12/30/18 02/28/19 History rOPINIRole HCL [Requip] 1 mg PO HS 02/28/19 02/28/19 History Allergies Allergy/AdvReac Type Severity Reaction Status Date / Time formaldehyde Allergy Itching Verified 02/28/19 21:36 nickel Allergy Itching Verified 02/28/19 21:36 quaternium Allergy Itching Verified 02/28/19 21:36 Sulfa (Sulfonamide Allergy Itching Verified 02/28/19 21:36 Antibiotics) Physical Exam Vitals: Vital Signs Temp Pulse Pulse Resp BP BP BP 03/01/19 07:24 98.4 F 68 17 127/76 03/01/19 04:00 98.4 F 70 18 129/80 02/28/19 23:38 98 F 77 18 119/72 02/28/19 21:28 98 F 71 18 134/81 02/28/19 20:01 97 F L 67 18 142/85 02/28/19 18:51 65 18 130/65 02/28/19 16:22 98 F 76 18 151/73 Pulse Ox 03/01/19 07:24 94 L 03/01/19 04:00 97 02/28/19 23:38 97 02/28/19 21:28 100 02/28/19 20:01 96 02/28/19 18:51 96 02/28/19 16:22 100 Intake and Output 02/28/19 03/01/19 03/01/19 22:59 06:59 14:59 Other: Voiding Method Toilet Toilet Diaper Diaper Incontinent Incontinent # Voids 1 Weight 107.955 kg Results 03/01/19 05:23 03/01/19 05:23 Cardiac Enzymes 02/28/19 02/28/19 02/28/19 Range/Units 17:02 17:02 22:31 AST 36 (14-36) U/L Troponin I 0.016 0.015 (0.000-0.034) ng/mL 03/01/19 Range/Units 05:23 AST (14-36) U/L Troponin I <0.012 (0.000-0.034) ng/mL Coagulation 02/28/19 Range/Units 17:02 PT 10.5 (9.0-12.0) sec APTT 22.7 (22.0-30.0) sec Lipids 03/01/19 Range/Units 05:23 Triglycerides 89 (<150) mg/dL Cholesterol 122 (<200) mg/dL HDL Cholesterol 50 (40-60) mg/dL CBC 02/28/19 03/01/19 Range/Units 17:02 05:23 WBC 8.1 4.4 (3.8-10.6) k/uL RBC 4.38 3.69 L (3.80-5.40) m/uL Hgb 13.4 11.8 (11.4-16.0) gm/dL Hct 41.0 35.5 (34.0-46.0) % Plt Count 183 140 L (150-450) k/uL Comprehensive Metabolic Panel 02/28/19 03/01/19 Range/Units 17:02 05:23 Sodium 139 138 (137-145) mmol/L Potassium 4.4 4.8 (3.5-5.1) mmol/L Chloride 104 108 H (98-107) mmol/L Carbon Dioxide 23 22 (22-30) mmol/L BUN 27 H 27 H (7-17) mg/dL Creatinine 1.04 1.01 (0.52-1.04) mg/dL Glucose 170 H 214 H (74-99) mg/dL Calcium 9.8 8.9 (8.4-10.2) mg/dL AST 36 (14-36) U/L ALT 34 (9-52) U/L Alkaline Phosphatase 93 (38-126) U/L Total Protein 7.0 (6.3-8.2) g/dL Albumin 4.2 (3.5-5.0) g/dL Current Medications Generic Name Dose Route Start Last Admin Trade Name Freq PRN Reason Stop Dose Admin Acetaminophen 650 mg 02/28/19 20:48 Tylenol Tab PO Q6H PRN Pain Allopurinol 300 mg 02/28/19 21:00 02/28/19 22:30 Zyloprim PO 300 mg HS JAVY Administration Aspirin 325 mg 03/01/19 09:00 Aspirin PO DAILY JAVY Fluoxetine HCl 20 mg 03/01/19 09:00 Prozac PO DAILY JAVY Gabapentin 100 mg 02/28/19 21:00 02/28/19 22:30 Neurontin PO 100 mg BID JAVY Administration Heparin Sodium (Porcine) 5,000 unit 02/28/19 21:00 02/28/19 22:31 Heparin SQ 5,000 unit Q12HR JAVY Administration Sodium Chloride 1,000 mls @ 100 mls/hr 02/28/19 20:30 03/01/19 05:32 Saline 0.9% IV 100 mls/hr .Q10H JAVY Administration Ceftriaxone Sodium 1 gm/ 50 mls @ 100 mls/hr 03/01/19 09:00 Sodium Chloride IVPB Q24HR JAVY Insulin Detemir 30 unit 02/28/19 21:00 02/28/19 22:31 Levemir SQ 30 unit HS JAVY Administration Levothyroxine Sodium 200 mcg 03/01/19 06:30 03/01/19 05:30 Synthroid PO 200 mcg DAILY@0630 JAVY Administration Levothyroxine Sodium 50 mcg 03/01/19 06:30 03/01/19 05:30 Synthroid PO 50 mcg DAILY@0630 JAVY Administration Lisinopril 10 mg 03/01/19 09:00 Zestril PO DAILY JAVY Nitroglycerin 0.4 mg 02/28/19 20:18 Nitrostat SUBLINGUAL Q5M PRN Chest Pain Pantoprazole Sodium 40 mg 03/01/19 07:30 Protonix PO AC-BRKFST JAVY Ropinirole HCl 1 mg 02/28/19 21:00 02/28/19 22:30 Requip PO 1 mg HS JAVY Administration Tramadol HCl 50 mg 02/28/19 20:48 02/28/19 22:31 Ultram PO 50 mg Q8H PRN Administration Pain Intake and Output 02/28/19 03/01/19 03/01/19 22:59 06:59 14:59 Other: Voiding Method Toilet Toilet Diaper Diaper Incontinent Incontinent # Voids 1 Weight 107.955 kg 03/01/19 05:23 03/01/19 05:23
[2019-03-01 11:30] LABS: Glucose,Whole Blood 45 mg/dL (75-99)
--- NOTE | 2019-03-01 11:33 | NM ---
EXAMINATION TYPE: NM stress persantine cardiolit DATE OF EXAM: 03/01/2019 COMPARISON: NONE HISTORY: History of hypertension and diabetes with chest pain TECHNIQUE: After the intravenous administration of 9.97 mCi Tc 99m Sestamibi - Cardiolite resting SP ECT images acquired 45 minutes post injection. The patient received 61.5 mg Persantine, 25.9 mCi Tc 99m Sestamibi - Stress images obtained 35 minute s post injection FINDINGS: Review of stress and rest SPECT images demonstrates no distinct perfusion abnormality. Gated analysi s shows normal wall motion with an estimated left ventricular ejection fraction of 72 %. IMPRESSION: No scintigraphic evidence for reversible ischemia.
[2019-03-01] MEDS: GABAPENTIN 100 MG CAP PO SCH (11:39)
[2019-03-01] MEDS: HEPARIN SODIUM,PORCINE 5,000 UNIT/ML 1 ML VIAL SQ SCH (11:40)
[2019-03-01 11:46] LABS: Glucose,Whole Blood 53 mg/dL (75-99)
[2019-03-01 12:03] LABS: Glucose,Whole Blood 63 mg/dL (75-99)
[2019-03-01 12:18] LABS: Glucose,Whole Blood 69 mg/dL (75-99)
[2019-03-01 12:31] LABS: Glucose,Whole Blood 91 mg/dL (75-99)
--- NOTE | 2019-03-01 12:31 | EST ---
EXERCISE STRESS AGE: 68 SEX: F HT: 5'10" WT: 238 PROTOCOL: Persantine Cardiolite Stress Test HEART RATE REST: 64 BLOOD PRESSURE REST: 133/75 MAXIMUM HEART RATE ACHIEVED: 71 MAXIMUM BLOOD PRESSURE: 133/75 85% MPHR: 128 100% MPHR: 150 INDICATIONS: Chest pain. CLINICAL INFORMATION: STRESS DATA: Heart rate 64, pressure is 133/75 mmHg. Baseline EKG showed sinus mechanism, 61.5 mg of Persantine given per protocol. Max heart rate was 71 beats per minute. Maximum pressure was 133/75. Clinically, the patient has no symptoms and the EKG did not show any significant ST or T-wave abnormalities concerning for ischemia. CONCLUSION: 1. Nondiagnostic electrocardiogram stress testing in response to Lexiscan. 2. Please follow up on the Cardiolite portion on separate report from Radiology Department. MMODL / IJN: [id number] /
[2019-03-01 16:09] VITALS: BP 145/79; PULSE 70; TEMP 97.9
[2019-03-01 16:48] LABS: Glucose,Whole Blood 263 mg/dL (75-99)
--- NOTE | 2019-03-01 19:15 | P.HPIM ---
History of Present Illness H&P Date: 03/01/19 Chief Complaint: Left-sided chest pain The pleasant 68-year-old white female who was admitted with left-sided chest pain and apparent urinary tract infection she was seen by cardiology in the morning who took her for a Persantine stress test. Which is negative. Was seen patient after the days events and she is quite comfortable. Of note we did find a gram-negative bacilli urinary tract infection. Review of Systems GENERAL: Patient denies fever. Denies chills. EYES: Denies blurred vision. Denies vision changes. Denies eye pain. EARS, NOSE, MOUTH, & THROAT: Denies headache. Denies sore throat. Denies ear pain. RESPIRATORY: Denies cough. Denies shortness of breath. Denies sputum production. Denies hemoptysis. CARDIOVASCULAR: Admitted to left-sided chest pain more in her breast area due to soreness. GASTROINTESTINAL: Denies abdominal pain. Denies diarrhea. Denies constipation. Denies nausea. Denies vomiting. Denies heartburn. Denies blood in the stool. GENITOURINARY: Admits to dysuria and frequency MUSCULOSKELETAL: Admits to multiple aches and pains in her lower extremities secondary to osteoarthritis INTEGUMENTARY: Denies pruitis. Denies rash. PSYCHIATRIC: Denies suicidal or homicial ideations. ENDOCRINE: Admits to severe diabetes with multiple admissions for uncontrolled diabetes insulin-dependent. HEMATOLOGIC: Denies bleeding disorders. Past Medical History Past Medical History: Heart Failure, Diabetes Mellitus, GI Bleed, Hypertension, Osteoarthritis (OA), Thyroid Disorder Additional Past Medical History / Comment(s): IDDM type I per pt, peripheral neuropathy bilateral hands and feet, arthritis bilateral hands, occasional low back pain, gout L great toe, hypothyroid, L great toe callus, lower GI bleed, diverticulosis, RLS. hep C History of Any Multi-Drug Resistant Organisms: None Reported Past Surgical History: Cholecystectomy, Hernia Repair, Joint Replacement Additional Past Surgical History / Comment(s): Umbilical hernia repair, kidney stone basketing and lithotripsy, total L knee arthroplasty, colonoscopy. Past Anesthesia/Blood Transfusion Reactions: Postoperative Nausea & Vomiting (PONV) Additional Past Anesthesia/Blood Transfusion Reaction / Comment(s): Ponv x1. Past Psychological History: Anxiety, Depression, Panic Disorder Smoking Status: Never smoker Past Alcohol Use History: None Reported Past Drug Use History: None Reported - Past Family History Father History Unknown: Yes Family Medical History: Diabetes Mellitus Additional Family Medical History / Comment(s): etoh Mother Family Medical History: Liver Disease Additional Family Medical History / Comment(s): etoh Brother(s) Additional Family Medical History / Comment(s): depression, etoh Medications and Allergies Home Medications Medication Instructions Recorded Confirmed Type Ramipril [Altace] 2.5 mg PO DAILY 01/19/16 02/28/19 History FLUoxetine HCL [PROzac] 20 mg PO DAILY 02/15/17 02/28/19 History Levothyroxine Sodium [Synthroid] 50 mcg PO DAILY 04/14/18 02/28/19 History Levothyroxine Sodium [Synthroid] 200 mcg PO DAILY 04/14/18 02/28/19 History traMADol HCl [Ultram] 50 mg PO Q8H PRN #30 tab 09/16/18 02/28/19 Rx Acetaminophen [Tylenol] 650 mg PO Q6H PRN 12/30/18 02/28/19 History Allopurinol [Zyloprim] 300 mg PO HS 12/30/18 02/28/19 History Gabapentin [Neurontin] 100 mg PO BID 12/30/18 02/28/19 History Insulin Glargine,Hum.rec.anlog 30 units SQ HS 12/30/18 02/28/19 History [Toujeo Solostar] Insulin Lispro [humaLOG Kwikpen] See Protocol SQ AC-TID 12/30/18 02/28/19 History rOPINIRole HCL [Requip] 1 mg PO HS 02/28/19 02/28/19 History Ciprofloxacin HCl [Cipro] 500 mg PO BID 7 Days #14 tab 03/01/19 Rx Allergies Allergy/AdvReac Type Severity Reaction Status Date / Time formaldehyde Allergy Itching Verified 02/28/19 21:36 nickel Allergy Itching Verified 02/28/19 21:36 quaternium Allergy Itching Verified 02/28/19 21:36 Sulfa (Sulfonamide Allergy Itching Verified 02/28/19 21:36 Antibiotics) Physical Exam Osteopathic Statement: *. No significant issues noted on an osteopathic structural exam other than those noted in the History and Physical/Consult. Vitals: Vital Signs Temp Pulse Pulse Resp BP BP BP 03/01/19 16:00 97.9 F 70 17 145/79 03/01/19 12:00 69 17 03/01/19 11:36 97.6 F 69 17 146/76 03/01/19 08:00 68 17 03/01/19 07:24 98.4 F 68 17 127/76 03/01/19 04:00 98.4 F 70 18 129/80 02/28/19 23:38 98 F 77 18 119/72 02/28/19 21:28 98 F 71 18 134/81 02/28/19 20:01 97 F L 67 18 142/85 Pulse Ox 03/01/19 16:00 97 03/01/19 12:00 03/01/19 11:36 96 03/01/19 08:00 03/01/19 07:24 94 L 03/01/19 04:00 97 02/28/19 23:38 97 02/28/19 21:28 100 02/28/19 20:01 96 Intake and Output 03/01/19 03/01/19 03/01/19 06:59 14:59 22:59 Other: Voiding Method Toilet Toilet Toilet Diaper Diaper Diaper Incontinent Incontinent Incontinent # Voids 1 2 Weight 107.955 kg GENERAL: This is a -68 year-old in no apparent distress at the time of examination. Pleasant and cooperative. HEENT: Head is atraumatic, normocephalic. Pupils are equal, round, and reactive to light. Sclerae anicteric. Conjunctivae are clear. Mucus membranes of the mouth are moist. Neck is supple. RESPIRATORY: Clear to auscultation. No wheezes, rales, or rhonchi. No use of accessory muscles. Patient maintaining oxygen saturation greater than 92%. No chest wall tenderness is noted on palpation or with deep breathing. CARDIOVASCULAR: Regular rate and rhythm. S1 and S2 noted. No systolic or diastolic murmur auscultated. No JVD noted. No S3 or S4 noted. GASTROINTESTINAL: No distention noted. Abdomen soft and round. Normal active bowel sounds auscultated x 4 quadrants. No pain or tenderness noted upon palpation. INTEGUMENTARY: No cyanosis. No jaundice. No rashes noted. No cellulitis noted. EXTREMITIES: 2+ peripheral pulses. Evidence of peripheral edema. No calf tenderness noted. NEUROLOGIC: Cranial nerves II-XII intact. PSYCHIATRIC: Awake, alert, and oriented X 3. Appropriate affect. Intact judgement and insight. Results CBC & Chem 7: 03/01/19 05:23 03/01/19 05:23 Labs: Abnormal Lab Results - Last 24 Hours (Table) 02/28/19 03/01/19 03/01/19 Range/Units 21:39 05:23 05:23 RBC 3.69 L (3.80-5.40) m/uL Plt Count 140 L (150-450) k/uL Chloride 108 H (98-107) mmol/L BUN 27 H (7-17) mg/dL Glucose 214 H (74-99) mg/dL POC Glucose (mg/dL) 108 H (75-99) mg/dL 03/01/19 03/01/19 03/01/19 Range/Units 07:03 11:28 11:45 RBC (3.80-5.40) m/uL Plt Count (150-450) k/uL Chloride (98-107) mmol/L BUN (7-17) mg/dL Glucose (74-99) mg/dL POC Glucose (mg/dL) 183 H 45 L 53 L (75-99) mg/dL 03/01/19 03/01/19 03/01/19 Range/Units 12:02 12:16 16:47 RBC (3.80-5.40) m/uL Plt Count (150-450) k/uL Chloride (98-107) mmol/L BUN (7-17) mg/dL Glucose (74-99) mg/dL POC Glucose (mg/dL) 63 L 69 L 263 H (75-99) mg/dL Microbiology - Last 24 Hours (Table) 02/28/19 18:31 Urine Culture - Preliminary Urine,Clean Catch Gram Neg Bacilli Thrombosis Risk Factor Assmnt - Choose All That Apply Any of the Below Risk Factors Present?: Yes Each Factor Represents 1 point: Obesity (BMI >25) Other Risk Factors: Yes Each Risk Factor Represents 2 Points: Age 61-74 years Other congenital or acquired thrombophilia - If yes, enter type in comment: No Thrombosis Risk Factor Assessment Total Risk Factor Score: 3 Thrombosis Risk Factor Assessment Level: Moderate Risk Assessment and Plan (1) Chest pain Current Visit: Yes Status: Acute Code(s): R07.9 - CHEST PAIN, UNSPECIFIED SNOMED Code(s): 76941256 (2) UTI (urinary tract infection) Current Visit: Yes Status: Acute Code(s): N39.0 - URINARY TRACT INFECTION, SITE NOT SPECIFIED SNOMED Code(s): 28397860 (3) Abdominal pain Current Visit: No Status: Acute Code(s): R10.9 - UNSPECIFIED ABDOMINAL PAIN SNOMED Code(s): 19166027 (4) Elevated troponin Current Visit: No Status: Acute Code(s): R74.8 - ABNORMAL LEVELS OF OTHER SERUM ENZYMES SNOMED Code(s): 216410557 Plan: Plan\discharge summary. Patient was admitted and worked up by cardiology including serial EKGs and enzymes and presenting stress test is ulcer on the chart but patient was cleared by cardiology to be discharged note she had a gram-negative bacilli urinary tract infection which she'll be placed on 10 days of ciprofloxacin. She is given a follow-up in the office in one week and follow-up with cardiology in [address] wishes to drive but I told to hold off until she sees me in the office. Please add in 23 hour observation discharge summary same note. Time with Patient: Greater than 30
== END 2019-03-01 19:20 | disposition home or self-care (01) ==
LOC: EC 16:19 → 1SOBS 19:42
PROVIDERS: ADMIT Family Medicine; ATTEND Family Medicine
DX: R07.89 Other chest pain (principal); N39.0 Urinary tract infection, site not specified; E86.0 Dehydration; E87.2 Acidosis; B96.89 Other specified bacterial agents as the cause of diseases classified elsewhere; E11.42 Type 2 diabetes mellitus with diabetic polyneuropathy; E03.9 Hypothyroidism, unspecified; M10.9 Gout, unspecified; K57.90 Diverticulosis of intestine, part unspecified, without perforation or abscess without bleeding; I11.0 Hypertensive heart disease with heart failure; I50.9 Heart failure, unspecified; R94.31 Abnormal electrocardiogram [ECG] [EKG]; R77.8 Other specified abnormalities of plasma proteins; D69.6 Thrombocytopenia, unspecified; G25.81 Restless legs syndrome; M54.5 Low back pain; L84 Corns and callosities; B19.20 Unspecified viral hepatitis C without hepatic coma; F41.0 Panic disorder [episodic paroxysmal anxiety]; F32.9 Major depressive disorder, single episode, unspecified; F41.9 Anxiety disorder, unspecified; M19.042 Primary osteoarthritis, left hand; M19.041 Primary osteoarthritis, right hand; N64.4 Mastodynia; Z79.4 Long term (current) use of insulin; Z79.899 Other long term (current) drug therapy; Z79.890 Hormone replacement therapy; Z88.2 Allergy status to sulfonamides; Z91.048 Other nonmedicinal substance allergy status; Z87.19 Personal history of other diseases of the digestive system; Z90.49 Acquired absence of other specified parts of digestive tract; Z96.652 Presence of left artificial knee joint; Z87.442 Personal history of urinary calculi; Z83.3 Family history of diabetes mellitus; Z81.1 Family history of alcohol abuse and dependence; Z83.79 Family history of other diseases of the digestive system; Z81.8 Family history of other mental and behavioral disorders
CPT/HCPCS: 96365; 96372 ×2; 96361; 96375; 99285; 36415; 93005; 93017; 83880; 80061; 80053; 80048; 82150; 83605; 83690; 84484 ×2; 85025 ×2; 85610; 85730; 81001; 87086; 87077; 87186; 71046; 74018; 78452; G0378 ×2; A9500; J2270; J1644 ×2; J2405; J0696 ×2; J1885; J1245; C9113

== ENCOUNTER 2019-03-02 17:33 | Emergency (ER) | payer MEDICARE, BC ==
[2019-03-02 17:48] VITALS: TEMP 98.1
[2019-03-02] MEDS ORDERED: SODIUM CHLORIDE 0.9% 1,000 ML IV STA ×2 (17:54)
--- NOTE | 2019-03-02 17:55 | ED ---
Abdominal Pain HPI - General Chief Complaint: Abdominal Pain Stated Complaint: UTI-Revisit Time Seen by Provider: 03/02/19 17:53 Source: patient, RN notes reviewed, old records reviewed Mode of arrival: ambulatory Limitations: no limitations - History of Present Illness Initial Comments: This is a 68-year-old female the ER for evaluation as patient resents today for evaluation of flank pain. Left-sided flank pain with known history of kidney stones. Patient recently admitted for evaluation. Patient at that time was worked up for chest pain and discharged home. She was also diagnosed urinary tract infection currently on antibiotics. No fevers. Patient is just complaining of increasing flank pain. No current nausea or vomiting. Denies fever. She taking antibiotics as directed MD Complaint: abdominal pain, flank pain (Left) -: days(s) Location: diffuse, LLQ, L flank Radiation: LLQ, L flank Migration to: LLQ Severity scale (1-10): 4 Quality: aching Consistency: constant Improves With: nothing Worsens With: nothing Associated Symptoms: nausea - Related Data Home Medications Medication Instructions Recorded Confirmed Ramipril [Altace] 2.5 mg PO DAILY 01/19/16 03/02/19 FLUoxetine HCL [PROzac] 20 mg PO DAILY 02/15/17 03/02/19 Levothyroxine Sodium [Synthroid] 50 mcg PO DAILY 04/14/18 03/02/19 Levothyroxine Sodium [Synthroid] 200 mcg PO DAILY 04/14/18 03/02/19 Acetaminophen [Tylenol] 650 mg PO Q6H PRN 12/30/18 03/02/19 Allopurinol [Zyloprim] 300 mg PO HS 12/30/18 03/02/19 Gabapentin [Neurontin] 100 mg PO BID 12/30/18 03/02/19 Insulin Glargine,Hum.rec.anlog 30 units SQ HS 12/30/18 03/02/19 [Toujeo Solostar] Insulin Lispro [humaLOG Kwikpen] See Protocol SQ AC-TID 12/30/18 03/02/19 rOPINIRole HCL [Requip] 1 mg PO HS 02/28/19 03/02/19 Previous Rx's Medication Instructions Recorded traMADol HCl [Ultram] 50 mg PO Q8H PRN #30 tab 09/16/18 Ciprofloxacin HCl [Cipro] 500 mg PO BID 7 Days #14 tab 03/01/19 Allergies Allergy/AdvReac Type Severity Reaction Status Date / Time formaldehyde Allergy Itching Verified 03/02/19 18:15 nickel Allergy Itching Verified 03/02/19 18:15 quaternium Allergy Itching Verified 03/02/19 18:15 Sulfa (Sulfonamide Allergy Itching Verified 03/02/19 18:15 Antibiotics) Review of Systems ROS Statement: Those systems with pertinent positive or pertinent negative responses have been documented in the HPI. ROS Other: All systems not noted in ROS Statement are negative. Past Medical History Past Medical History: Heart Failure, Diabetes Mellitus, GI Bleed, Hypertension, Osteoarthritis (OA), Thyroid Disorder Additional Past Medical History / Comment(s): IDDM type I per pt, peripheral neuropathy bilateral hands and feet, arthritis bilateral hands, occasional low back pain, gout L great toe, hypothyroid, L great toe callus, lower GI bleed, diverticulosis, RLS. hep C History of Any Multi-Drug Resistant Organisms: None Reported Past Surgical History: Cholecystectomy, Hernia Repair, Joint Replacement Additional Past Surgical History / Comment(s): Umbilical hernia repair, kidney stone basketing and lithotripsy, total L knee arthroplasty, colonoscopy. Past Anesthesia/Blood Transfusion Reactions: Postoperative Nausea & Vomiting (PONV) Additional Past Anesthesia/Blood Transfusion Reaction / Comment(s): Ponv x1. Past Psychological History: Anxiety, Depression, Panic Disorder Smoking Status: Never smoker Past Alcohol Use History: None Reported Past Drug Use History: None Reported - Past Family History Father History Unknown: Yes Family Medical History: Diabetes Mellitus Additional Family Medical History / Comment(s): etoh Mother Family Medical History: Liver Disease Additional Family Medical History / Comment(s): etoh Brother(s) Additional Family Medical History / Comment(s): depression, etoh General Exam Limitations: no limitations General appearance: alert, in no apparent distress Head exam: Present: atraumatic, normocephalic, normal inspection Eye exam: Present: normal appearance, PERRL, EOMI. Absent: scleral icterus, conjunctival injection, periorbital swelling ENT exam: Present: normal exam, mucous membranes moist Neck exam: Present: normal inspection. Absent: tenderness, meningismus, lymphadenopathy Respiratory exam: Present: normal lung sounds bilaterally. Absent: respiratory distress, wheezes, rales, rhonchi, stridor Cardiovascular Exam: Present: regular rate, normal rhythm, normal heart sounds. Absent: systolic murmur, diastolic murmur, rubs, gallop, clicks GI/Abdominal exam: Present: soft, normal bowel sounds. Absent: distended, tenderness, guarding, rebound, rigid Extremities exam: Present: normal inspection, full ROM, normal capillary refill. Absent: tenderness, pedal edema, joint swelling, calf tenderness Back exam: Present: normal inspection Neurological exam: Present: alert, oriented X3, CN II-XII intact Psychiatric exam: Present: normal affect, normal mood Skin exam: Present: warm, dry, intact, normal color. Absent: rash Course Vital Signs 03/02/19 03/02/19 17:46 19:09 Temperature 98.1 F Pulse Rate 89 65 Respiratory 20 18 Rate Blood Pressure 133/85 132/76 O2 Sat by Pulse 100 98 Oximetry - Reevaluation(s) Reevaluation #1: 03/02/19 19:42 Medical record reviewed including prior hospital admission, urinalysis and imaging Reevaluation #2: 03/02/19 19:42 Pain is currently controlled Reevaluation #3: 03/02/19 20:16 patient has pain control and wants to go home Medical Decision Making - Medical Decision Making 68 female to the ED co abdominal pain, has history of same pain, patient takes pain control, also worried about recent UTI, Labwork is normal, CT ap is normal, Pain is controlled and patient is asking to go home - Lab Data Result diagrams: 03/02/19 18:10 03/02/19 18:10 Lab Results 03/02/19 03/02/19 03/02/19 Range/Units 18:10 18:10 18:10 WBC 6.9 (3.8-10.6) k/uL RBC 4.22 (3.80-5.40) m/uL Hgb 13.2 (11.4-16.0) gm/dL Hct 40.1 (34.0-46.0) % MCV 95.0 (80.0-100.0) fL MCH 31.3 (25.0-35.0) pg MCHC 32.9 (31.0-37.0) g/dL RDW 16.3 H (11.5-15.5) % Plt Count 170 (150-450) k/uL Neutrophils % 63 % Lymphocytes % 22 % Monocytes % 8 % Eosinophils % 5 % Basophils % 1 % Neutrophils # 4.3 (1.3-7.7) k/uL Lymphocytes # 1.5 (1.0-4.8) k/uL Monocytes # 0.6 (0-1.0) k/uL Eosinophils # 0.3 (0-0.7) k/uL Basophils # 0.1 (0-0.2) k/uL Anisocytosis Slight Sodium 140 (137-145) mmol/L Potassium 4.3 (3.5-5.1) mmol/L Chloride 106 (98-107) mmol/L Carbon Dioxide 25 (22-30) mmol/L Anion Gap 9 mmol/L BUN 24 H (7-17) mg/dL Creatinine 0.80 (0.52-1.04) mg/dL Est GFR (CKD-EPI)AfAm 87 (>60 ml/min/1.73 sqM) Est GFR (CKD-EPI)NonAf 75 (>60 ml/min/1.73 sqM) Glucose 95 (74-99) mg/dL POC Glucose (mg/dL) (75-99) mg/dL POC Glu Professor Of Environmental Studies ID Calcium 9.9 (8.4-10.2) mg/dL Total Bilirubin 0.5 (0.2-1.3) mg/dL AST 31 (14-36) U/L ALT 28 (9-52) U/L Alkaline Phosphatase 94 (38-126) U/L Creatine Kinase 156 H (30-135) U/L Total Protein 7.0 (6.3-8.2) g/dL Albumin 4.1 (3.5-5.0) g/dL Amylase 40 (30-110) U/L Lipase 45 (23-300) U/L Urine Color Yellow Urine Appearance Clear (Clear) Urine pH 6.0 (5.0-8.0) Ur Specific Clark 1.016 (1.001-1.035) Urine Protein Negative (Negative) Urine Glucose (UA) Negative (Negative) Urine Ketones Negative (Negative) Urine Blood Negative (Negative) Urine Nitrite Negative (Negative) Urine Bilirubin Negative (Negative) Urine Urobilinogen <2.0 (<2.0) mg/dL Ur Leukocyte Esterase Negative (Negative) 03/02/19 Range/Units 19:46 WBC (3.8-10.6) k/uL RBC (3.80-5.40) m/uL Hgb (11.4-16.0) gm/dL Hct (34.0-46.0) % MCV (80.0-100.0) fL MCH (25.0-35.0) pg MCHC (31.0-37.0) g/dL RDW (11.5-15.5) % Plt Count (150-450) k/uL Neutrophils % % Lymphocytes % % Monocytes % % Eosinophils % % Basophils % % Neutrophils # (1.3-7.7) k/uL Lymphocytes # (1.0-4.8) k/uL Monocytes # (0-1.0) k/uL Eosinophils # (0-0.7) k/uL Basophils # (0-0.2) k/uL Anisocytosis Sodium (137-145) mmol/L Potassium (3.5-5.1) mmol/L Chloride (98-107) mmol/L Carbon Dioxide (22-30) mmol/L Anion Gap mmol/L BUN (7-17) mg/dL Creatinine (0.52-1.04) mg/dL Est GFR (CKD-EPI)AfAm (>60 ml/min/1.73 sqM) Est GFR (CKD-EPI)NonAf (>60 ml/min/1.73 sqM) Glucose (74-99) mg/dL POC Glucose (mg/dL) 142 H (75-99) mg/dL POC Glu Professor Of Environmental Studies ID Yuan, Erica, A Calcium (8.4-10.2) mg/dL Total Bilirubin (0.2-1.3) mg/dL AST (14-36) U/L ALT (9-52) U/L Alkaline Phosphatase (38-126) U/L Creatine Kinase (30-135) U/L Total Protein (6.3-8.2) g/dL Albumin (3.5-5.0) g/dL Amylase (30-110) U/L Lipase (23-300) U/L Urine Color Urine Appearance (Clear) Urine pH (5.0-8.0) Ur Specific Clark (1.001-1.035) Urine Protein (Negative) Urine Glucose (UA) (Negative) Urine Ketones (Negative) Urine Blood (Negative) Urine Nitrite (Negative) Urine Bilirubin (Negative) Urine Urobilinogen (<2.0) mg/dL Ur Leukocyte Esterase (Negative) - Radiology Data Radiology results: report reviewed (CT abd Pelvis is negative for acute disease), image reviewed Disposition Clinical Impression: Abdominal pain Disposition: HOME SELF-CARE Condition: Good Instructions (If sedation given, give patient instructions): Abdominal Pain (ED) Is patient prescribed a controlled substance at d/c from ED?: No Referrals: Diogenes Riddle DO [Primary Care Provider] - 1-2 days
[2019-03-02 18:36] LABS: Anisocytosis Slight; Basophils # (A) 0.1 k/uL (0-0.2); Basophils % (A) 1 %; Eosinophils # (A) 0.3 k/uL (0-0.7); Eosinophils % (A) 5 %; HCT 40.1 % (34.0-46.0); HGB 13.2 gm/dL (11.4-16.0); Lymphocytes # (A) 1.5 k/uL (1.0-4.8); Lymphocytes % (A) 22 %; MCH 31.3 pg (25.0-35.0); MCHC 32.9 g/dL (31.0-37.0); Mean Platelet Volume 8.3; Monocytes # (A) 0.6 k/uL (0-1.0); Monocytes % (A) 8 %; Neutrophils # (A) 4.3 k/uL (1.3-7.7); Neutrophils % (A) 63 %; Platelet Count 170 k/uL (150-450); RBC 4.22 m/uL (3.80-5.40); RDW 16.3 % (11.5-15.5); WBC 6.9 k/uL (3.8-10.6)
[2019-03-02 18:39] LABS: Albumin 4.1 g/dL (3.5-5.0); Calcium 9.9 mg/dL (8.4-10.2); Potassium 4.3 mmol/L (3.5-5.1); Total Bilirubin 0.5 mg/dL (0.2-1.3)
[2019-03-02 18:41] LABS: Appearance,Urine Clear (Clear); Bilirubin,Urine Negative (Negative); Blood,Urine Negative (Negative); Color,Urine Yellow; Glucose,Urine (UA) Negative (Negative); Ketones,Urine Negative (Negative); Leukocyte Esterase,Urine Negative (Negative); Nitrite,Urine Negative (Negative); Protein,Urine Negative (Negative); Specific Gravity,Urine 1.016 (1.001-1.035); Urobilinogen,Urine <2.0 mg/dL (<2.0)
[2019-03-02] MEDS ORDERED: KETOROLAC 30 MG/ML 1 ML VIAL IVP STA (19:34)
[2019-03-02] MEDS ORDERED: MORPHINE SULFATE 4 MG/ML SYRINGE IVP STA (19:34)
[2019-03-02 19:49] LABS: Glucose,Whole Blood 142 mg/dL (75-99)
--- NOTE | 2019-03-02 20:07 | CT ---
EXAMINATION TYPE: CT abdomen pelvis wo con DATE OF EXAM: 03/02/2019 COMPARISON: 09/05/2018 CT HISTORY: Left side abdominal pain. Nausea CT DLP: 1098.4 mGycm Automated exposure control for dose reduction was used. TECHNIQUE: Helical acquisition of images was performed from the lung bases through the pelvis. FINDINGS: Within the limitations of noncontrast CT the following observations are made: LUNG BASES: No significant abnormality is appreciated. LIVER/GB: No significant abnormality is appreciated. PANCREAS: No significant abnormality is seen. SPLEEN: No significant abnormality is seen. ADRENALS: No significant abnormality is seen. KIDNEYS AND URETERS: No obstructive uropathy or mass or calcifications. FREE AIR: No free air is visualized. No peritoneal fluid. RETROPERITONEAL ADENOPATHY: None visualized REPRODUCTIVE ORGANS: No significant abnormality is seen URINARY BLADDER: No significant abnormality is seen. PELVIC ADENOPATHY: None visualized. OSSEOUS STRUCTURES: No significant abnormality is seen. BOWEL: 1) There is a 5 cm diameter geographic zone of gas attenuation centered at the abdominal midl ine, immediately medial to the uncinate process of the pancreas, and anterior to the third portion of the duodenum. This nonspecific finding is adjacent to a duodenal diverticulum, and had a 3 cm diamet er correlate on the 09/05/2018 CT. This presumably represents atypical duodenal diverticulum. However, complete characterization can be obtained using robust oral contrast with IV contrast. 2) No bowel obstruction or pneumatosis. However, the colon is markedly redundant and has an abundanc e of stool volume throughout, consistent with constipation. 3) Scattered descending and sigmoid colonic diverticula noted, but no evident diverticulitis. IMPRESSION: NO DEFINITE ACUTE PROCESS, BUT CONSTIPATION PATTERN NOTED.
[2019-03-02 20:35] VITALS: BP 134/81; PULSE 76; RESP 16
== END 2019-03-02 21:16 | disposition home or self-care (01) ==
LOC: EC 17:33
DX: R10.84 Generalized abdominal pain (principal); R10.32 Left lower quadrant pain; R11.0 Nausea; I11.0 Hypertensive heart disease with heart failure; I50.9 Heart failure, unspecified; E11.42 Type 2 diabetes mellitus with diabetic polyneuropathy; E03.9 Hypothyroidism, unspecified; F41.0 Panic disorder [episodic paroxysmal anxiety]; F32.9 Major depressive disorder, single episode, unspecified; Z79.4 Long term (current) use of insulin; Z79.890 Hormone replacement therapy; Z79.899 Other long term (current) drug therapy; Z88.2 Allergy status to sulfonamides; Z88.8 Allergy status to other drugs, medicaments and biological substances; Z91.048 Other nonmedicinal substance allergy status; Z96.652 Presence of left artificial knee joint
CPT/HCPCS: 36415; 80053; 82150; 82550; 83690; 85025; 81003; 74176; 99284; 96365; 96375 ×2; 96361; J2270; J0696; J1885

== ENCOUNTER → 2019-03-10 | Outpatient (CLI) | payer MEDICARE, BC ==
--- NOTE | 2019-03-10 10:47 | US ---
EXAMINATION TYPE: US liver DATE OF EXAM: 03/10/2019 COMPARISON: NONE CLINICAL HISTORY: B18.2 Hepatitis B. NPO, GB removed EXAM MEASUREMENTS: Liver Length: 19.2 cm CBD: 0.5 cm Right Kidney: 10.8 x 4.8 x 4.0 cm Pancreas: Limited visualization due to overlying bowel gas Liver: Appears enlarged in size, slightly heterogenous and coarse. Gallbladder: Surgically absent Evidence for sonographic Nam's sign: neg CBD: wnl Right Kidney: No hydronephrosis or masses seen IMPRESSION: 1. Hepatomegaly.
[2019-03-10 11:27] LABS: Basophils % (A) 1 %; Eosinophils # (A) 0.4 k/uL (0-0.7); Eosinophils % (A) 7 %; HCT 39.7 % (34.0-46.0); HGB 13.1 gm/dL (11.4-16.0); Lymphocytes % (A) 18 %; MCH 32.3 pg (25.0-35.0); MCV 97.7 fL (80.0-100.0); Mean Platelet Volume 8.3; Monocytes # (A) 0.4 k/uL (0-1.0); Monocytes % (A) 8 %; Neutrophils # (A) 3.7 k/uL (1.3-7.7); Neutrophils % (A) 65 %; Platelet Count 179 k/uL (150-450); RBC 4.06 m/uL (3.80-5.40); RDW 14.3 % (11.5-15.5); WBC 5.7 k/uL (3.8-10.6)
[2019-03-10 11:33] LABS: Albumin 3.7 g/dL (3.5-5.0); Calcium 9.3 mg/dL (8.4-10.2); Potassium 5.2 mmol/L (3.5-5.1); Total Bilirubin 0.4 mg/dL (0.2-1.3); Total Protein 6.4 g/dL (6.3-8.2)
== END | disposition home or self-care (01) ==
LOC: RADUSWWP 09:45
PROVIDERS: ATTEND Internal Medicine Gastroenterology
DX: R16.0 Hepatomegaly, not elsewhere classified (principal); B18.2 Chronic viral hepatitis C
CPT/HCPCS: 36415; 76705; 80053; 85025; 85610; 87522

== ENCOUNTER 2020-05-08 00:18 | Emergency (ER) | payer MEDICARE, BC ==
[2020-05-08 00:28] LABS: Glucose,Whole Blood 87 mg/dL (75-99)
[2020-05-08] MEDS ORDERED: ACETAMINOPHEN TAB 325 MG TAB PO STA (01:06)
--- NOTE | 2020-05-08 01:06 | XR ---
EXAM: XR Left Wrist Complete, 3 or More Views CLINICAL HISTORY: ITS.REASON XR Reason: left wrist swelling s/p fall TECHNIQUE: Frontal, lateral and oblique views of the left wrist. COMPARISON: No relevant prior studies available. IMPRESSION: Mildly displaced comminuted fracture of the distal radius. Ulna and remaining carpal bones are intact.
--- NOTE | 2020-05-08 01:30 | ED ---
Fall HPI - General Chief Complaint: Fall Stated Complaint: Fall, arm injury Time Seen by Provider: 05/08/20 00:27 Source: patient Mode of arrival: wheelchair - History of Present Illness Initial Comments: 70-year-old female patient presents to the emergency department today for evaluation of left wrist pain after experiencing a fall. Patient states that around 8 PM this evening she became lightheaded and while bending over lost her balance and fell. States she did try to culture self with the arm. Patient leaves her lightheadedness was related to decreased food intake today while still taking her normal insulin dosages. Blood sugar at time of incident was around 50. Patient states that she did eat and feels much better. Denies any current dizziness. She denies hitting her head or losing consciousness with the fall. He denies any neck or back pain. Denies any other injuries. Denies use of anticoagulant or antiplatelet medications. Patient denies any headache, chest pain, shortness of breath, weakness, abdominal pain, nausea, vomiting, or difficulties with bowel movements or urination. - Related Data Home Medications Medication Instructions Recorded Confirmed ramipriL [Altace] 2.5 mg PO DAILY 01/19/16 03/02/19 FLUoxetine HCL [PROzac] 20 mg PO DAILY 02/15/17 03/02/19 Levothyroxine Sodium [Synthroid] 50 mcg PO DAILY 04/14/18 03/02/19 Levothyroxine Sodium [Synthroid] 200 mcg PO DAILY 04/14/18 03/02/19 Acetaminophen [Tylenol] 650 mg PO Q6H PRN 12/30/18 03/02/19 Gabapentin [Neurontin] 100 mg PO BID 12/30/18 03/02/19 Insulin Glargine,Hum.rec.anlog 30 units SQ HS 12/30/18 03/02/19 [Tougirma Solostar] Insulin Lispro [humaLOG Kwikpen] See Protocol SQ AC-TID 12/30/18 03/02/19 allopurinoL [Zyloprim] 300 mg PO HS 12/30/18 03/02/19 rOPINIRole HCL [Requip] 1 mg PO HS 02/28/19 03/02/19 Previous Rx's Medication Instructions Recorded traMADol HCl [Ultram] 50 mg PO Q8H PRN #30 tab 09/16/18 Ciprofloxacin HCl [Cipro] 500 mg PO BID 7 Days #14 tab 03/01/19 Allergies Allergy/AdvReac Type Severity Reaction Status Date / Time formaldehyde Allergy Itching Verified 05/08/20 00:26 nickel Allergy Itching Verified 05/08/20 00:26 quaternium Allergy Itching Verified 05/08/20 00:26 Sulfa (Sulfonamide Allergy Itching Verified 05/08/20 00:26 Antibiotics) Review of Systems ROS Statement: Those systems with pertinent positive or pertinent negative responses have been documented in the HPI. ROS Other: All systems not noted in ROS Statement are negative. Past Medical History Past Medical History: Heart Failure, Diabetes Mellitus, GI Bleed, Hypertension, Osteoarthritis (OA), Thyroid Disorder Additional Past Medical History / Comment(s): IDDM type I per pt, peripheral neuropathy bilateral hands and feet, arthritis bilateral hands, occasional low back pain, gout L great toe, hypothyroid, L great toe callus, lower GI bleed, diverticulosis, RLS. hep C History of Any Multi-Drug Resistant Organisms: None Reported Past Surgical History: Cholecystectomy, Hernia Repair, Joint Replacement Additional Past Surgical History / Comment(s): Umbilical hernia repair, kidney stone basketing and lithotripsy, total L knee arthroplasty, colonoscopy. Past Anesthesia/Blood Transfusion Reactions: Postoperative Nausea & Vomiting (PONV) Additional Past Anesthesia/Blood Transfusion Reaction / Comment(s): Ponv x1. Past Psychological History: Anxiety, Depression, Panic Disorder Smoking Status: Never smoker Past Alcohol Use History: None Reported Past Drug Use History: None Reported - Past Family History Father History Unknown: Yes Family Medical History: Diabetes Mellitus Additional Family Medical History / Comment(s): etoh Mother Family Medical History: Liver Disease Additional Family Medical History / Comment(s): etoh Brother(s) Additional Family Medical History / Comment(s): depression, etoh General Exam Limitations: no limitations General appearance: alert, in no apparent distress, other (This is a well- developed, well-nourished adult female patient in no acute distress. Vital signs upon presentation are temperature 98.5F, pulse 74, respirations 17, blood pressure 162/82, pulse ox 100% on room air.) Head exam: Present: atraumatic, normocephalic, normal inspection Eye exam: Present: normal appearance, PERRL, EOMI. Absent: scleral icterus, conjunctival injection, periorbital swelling ENT exam: Present: normal exam, normal oropharynx, mucous membranes moist Neck exam: Present: normal inspection, full ROM, other (Nontender, no step-off, no deformity to firm midline palpation of the posterior cervical spine. Full range of motion without pain or limitation.). Absent: tenderness, meningismus, lymphadenopathy Respiratory exam: Present: normal lung sounds bilaterally. Absent: respiratory distress, wheezes, rales, rhonchi, stridor Cardiovascular Exam: Present: regular rate, normal rhythm, normal heart sounds. Absent: systolic murmur, diastolic murmur, rubs, gallop, clicks Extremities exam: Present: full ROM, normal capillary refill, other (There is soft tissue swelling noted over the dorsal aspect of the left distal forearm. There is bony irregularity noted over the radial aspect upon palpation. No anatomical snuffbox tenderness. Skin is otherwise pink, warm, dry. Cap refills less than 3 seconds. Radial pulses 2+ and equal jairon.). Absent: normal inspection, tenderness, pedal edema, joint swelling, calf tenderness Back exam: Present: normal inspection, other (Nontender, no step-off, no deformity to firm midline palpation of the thoracic and lumbar vertebrae. Full range of motion without pain or limitation.). Absent: vertebral tenderness Neurological exam: Present: alert, oriented X3, CN II-XII intact Psychiatric exam: Present: normal affect, normal mood Skin exam: Present: warm, dry, intact, normal color. Absent: rash Course Vital Signs 05/08/20 00:19 Temperature 98.5 F Pulse Rate 74 Respiratory 17 Rate Blood Pressure 162/82 O2 Sat by Pulse 100 Oximetry Procedures - Orthopedic Splinting/Casting Injury #1 Side: left Upper Extremity Injury Location: wrist Upper Extremity Immobilizer: sugar tong splint, Manjit wrap Additional Comments: Padded with web roll. Neurovascular status intact after splint application. Skin to the fingers is pink, warm, dry. Cap refills less than 3 seconds. Patient denies numbness or tingling. Medical Decision Making - Medical Decision Making 70-year-old female patient presented to the emergency department today for evaluation of left wrist injury after a fall. Physical examination did reveal soft tissue swelling and bony irregularity to the left distal forearm. Upon arrival patient did refuse pain medication. X-rays were obtained and did show a mildly displaced comminuted fracture of the distal radius. I did discuss x-ray findings with the patient and convinced her to take at least Tylenol for pain control, she agreed. Patient was placed in a sugar tong splint and sling. To be discharged with orthopedics for recheck as soon as possible. She is given a copy of her x-ray. She is instructed to follow-up with her primary care physician for recheck in 1-2 days. Return parameters were discussed in detail. They verbalize understanding and agree with this plan. - Lab Data Lab Results 05/08/20 Range/Units 00:25 POC Glucose (mg/dL) 87 (75-99) mg/dL POC Glu Stain Dipper ID Nat George - Radiology Data Radiology results: report reviewed, image reviewed Left wrist xray was obtained. Report was reviewed in its entirety, impression by Dr. Ayala shows mildly displaced comminuted fracture of the distal radius. Ulna and remaining carpal bones are intact. Disposition Clinical Impression: Fracture of left distal radius Disposition: HOME SELF-CARE Condition: Good Instructions (If sedation given, give patient instructions): Wrist Fracture in Adults (ED), Splint Care (ED), Fall Prevention (ED) Additional Instructions: Rest, ice, elevate the left arm. Keep splint in place until follow up with orthopedics. Call the orthopedic office in the morning for an appointment. Take medications as needed for pain control. Return to the emergency department for any new, worsening, or concerning symptoms. Is patient prescribed a controlled substance at d/c from ED?: No Referrals: Diogenes Riddle DO [Primary Care Provider] - 1-2 days Jens Moreno DO [Doctor of Osteopathic Medicine] - 1-2 days Time of Disposition: 01:30
[2020-05-08 04:53] VITALS: BP 158/76; PULSE 78; RESP 16; TEMP 98.7
== END 2020-05-08 01:58 | disposition home or self-care (01) ==
LOC: EC 00:18
DX: S52.502A Unspecified fracture of the lower end of left radius, initial encounter for closed fracture (principal); I11.0 Hypertensive heart disease with heart failure; I50.9 Heart failure, unspecified; E03.9 Hypothyroidism, unspecified; E10.42 Type 1 diabetes mellitus with diabetic polyneuropathy; G25.81 Restless legs syndrome; M10.9 Gout, unspecified; F41.9 Anxiety disorder, unspecified; F32.9 Major depressive disorder, single episode, unspecified; F41.0 Panic disorder [episodic paroxysmal anxiety]; Z79.4 Long term (current) use of insulin; Z79.890 Hormone replacement therapy; Z79.899 Other long term (current) drug therapy; Z88.2 Allergy status to sulfonamides; Z96.652 Presence of left artificial knee joint; Z91.048 Other nonmedicinal substance allergy status; Z91.09 Other allergy status, other than to drugs and biological substances; W19.XXXA Unspecified fall, initial encounter; Y92.009 Unspecified place in unspecified non-institutional (private) residence as the place of occurrence of the external cause
CPT/HCPCS: 29125; 36415; 99284

== ENCOUNTER 2021-06-07 19:13 | Emergency (ER) | payer MEDICARE, BC ==
[2021-06-07 19:21] VITALS: BP 160/87; PULSE 81; RESP 18; TEMP 98.9
--- NOTE | 2021-06-07 20:10 | ED ---
General Adult HPI - General Chief complaint: Fall Stated complaint: Fall-Head injury Time Seen by Provider: 06/07/21 19:31 Source: patient, RN notes reviewed Mode of arrival: wheelchair Limitations: no limitations - History of Present Illness Initial comments: 71-year-old female with a past medical history of heart failure, diabetes mellitus, GERD, hypertension presents to the emergency room for head injury. Patient was walking up the stairs and it was dark out. Patient states that she tripped and fell hitting her head against the wooden wall. She did not lose consciousness. She does not take blood thinners. Patient's daughter was concerned and wanted her evaluated for a head injury and rule out any bleeding in her brain. Patient does admit to a headache but denies any vomiting or visual changes. Patient denies any neck pain.Patient has no other complaints at this time including shortness of breath, chest pain, abdominal pain, nausea or vomiting, or visual changes. - Related Data Home Medications Medication Instructions Recorded Confirmed ramipriL [Altace] 2.5 mg PO DAILY 01/19/16 03/02/19 FLUoxetine HCL [PROzac] 20 mg PO DAILY 02/15/17 03/02/19 Levothyroxine Sodium [Synthroid] 50 mcg PO DAILY 04/14/18 03/02/19 Levothyroxine Sodium [Synthroid] 200 mcg PO DAILY 04/14/18 03/02/19 Acetaminophen [Tylenol] 650 mg PO Q6H PRN 12/30/18 03/02/19 Gabapentin [Neurontin] 100 mg PO BID 12/30/18 03/02/19 Insulin Glargine,Hum.rec.anlog 30 units SQ HS 12/30/18 03/02/19 [Tougirma Solostar] Insulin Lispro [humaLOG Kwikpen] See Protocol SQ AC-TID 12/30/18 03/02/19 allopurinoL [Zyloprim] 300 mg PO HS 12/30/18 03/02/19 rOPINIRole HCL [Requip] 1 mg PO HS 02/28/19 03/02/19 Previous Rx's Medication Instructions Recorded traMADol HCl [Ultram] 50 mg PO Q8H PRN #30 tab 09/16/18 Ciprofloxacin HCl [Cipro] 500 mg PO BID 7 Days #14 tab 03/01/19 Allergies Allergy/AdvReac Type Severity Reaction Status Date / Time formaldehyde Allergy Itching Verified 06/07/21 19:21 nickel Allergy Itching Verified 06/07/21 19:21 quaternium Allergy Itching Verified 06/07/21 19:21 Sulfa (Sulfonamide Allergy Itching Verified 06/07/21 19:21 Antibiotics) Review of Systems ROS Statement: Those systems with pertinent positive or pertinent negative responses have been documented in the HPI. ROS Other: All systems not noted in ROS Statement are negative. Past Medical History Past Medical History: Heart Failure, Diabetes Mellitus, GI Bleed, Hypertension, Osteoarthritis (OA), Thyroid Disorder Additional Past Medical History / Comment(s): IDDM type I per pt, peripheral neuropathy bilateral hands and feet, arthritis bilateral hands, occasional low back pain, gout L great toe, hypothyroid, L great toe callus, lower GI bleed, diverticulosis, RLS. hep C History of Any Multi-Drug Resistant Organisms: None Reported Past Surgical History: Cholecystectomy, Hernia Repair, Joint Replacement Additional Past Surgical History / Comment(s): Umbilical hernia repair, kidney stone basketing and lithotripsy, total L knee arthroplasty, colonoscopy. Past Anesthesia/Blood Transfusion Reactions: Postoperative Nausea & Vomiting (PONV) Additional Past Anesthesia/Blood Transfusion Reaction / Comment(s): Ponv x1. Past Psychological History: Anxiety, Depression, Panic Disorder Smoking Status: Never smoker Past Alcohol Use History: Rare Past Drug Use History: None Reported - Past Family History Father History Unknown: Yes Family Medical History: Diabetes Mellitus Additional Family Medical History / Comment(s): etoh Mother Family Medical History: Liver Disease Additional Family Medical History / Comment(s): etoh Brother(s) Additional Family Medical History / Comment(s): depression, etoh General Exam Limitations: no limitations General appearance: alert, in no apparent distress Head exam: Present: atraumatic Eye exam: Present: normal appearance, PERRL, EOMI. Absent: scleral icterus, conjunctival injection ENT exam: Present: normal exam, mucous membranes moist Neck exam: Present: normal inspection, full ROM. Absent: tenderness Respiratory exam: Present: normal lung sounds bilaterally. Absent: respiratory distress, wheezes Cardiovascular Exam: Present: regular rate, normal rhythm, normal heart sounds GI/Abdominal exam: Present: soft, normal bowel sounds. Absent: distended, tenderness Neurological exam: Present: alert Course Vital Signs 06/07/21 19:16 Temperature 98.9 F Pulse Rate 81 Respiratory 18 Rate Blood Pressure 160/87 O2 Sat by Pulse 97 Oximetry Medical Decision Making - Medical Decision Making Those are stable. Patient is well appearing. GCS 15. No focal neurologic deficits. CT brain shows no acute intracranial hemorrhage, mass effect, or midline shift. CT cervical spine shows no acute fracture. Patient reevaluated, continues to do well. Recommended monitoring for symptoms of concussion. They will otherwise follow up with primary care and return for any worsening symptoms. Disposition Clinical Impression: Head injury, Fall Disposition: HOME SELF-CARE Condition: Good Instructions (If sedation given, give patient instructions): Concussion (ED) Additional Instructions: Please follow-up with your doctor in one to 2 days. Return to the emergency room for any worsening symptoms. Is patient prescribed a controlled substance at d/c from ED?: No Referrals: Diogenes Riddle DO [Primary Care Provider] - 1-2 days Time of Disposition: 21:10
--- NOTE | 2021-06-07 20:44 | CT ---
EXAMINATION TYPE: CT brain bruno rios con DATE OF EXAM: 06/07/2021 COMPARISON: 08/26/2018 HISTORY: Pain/Fall. CT DLP: 1364.8 mGycm Automated exposure control for dose reduction was used. TECHNIQUE: CT scan of the head and cervical spine are performed without contrast. FINDINGS: There is no acute intracranial hemorrhage, mass effect, or midline shift identified. The ventricles and sulci are within normal limits in size. The globes are intact and the visualized sin uses are clear. Cervical spine is visualized in its entirety from C1 through upper thoracic levels and demonstrates s atisfactory alignment without evidence of acute fracture or dislocation. Prevertebral soft tissue ap pears within normal limits. The C1-C2 articulation is unremarkable. IMPRESSION: 1. There is no acute fracture or dislocation evident in the cervical spine. 2. No acute intracranial hemorrhage, mass effect, or midline shift is seen.
[2021-06-07] MEDS ORDERED: ACETAMINOPHEN TAB 325 MG TAB PO STA (21:10)
== END 2021-06-07 21:24 | disposition home or self-care (01) ==
LOC: EC 19:13
DX: S09.90XA Unspecified injury of head, initial encounter (principal); I11.0 Hypertensive heart disease with heart failure; I50.9 Heart failure, unspecified; E10.9 Type 1 diabetes mellitus without complications; E03.9 Hypothyroidism, unspecified; M10.9 Gout, unspecified; Z79.899 Other long term (current) drug therapy; Z79.890 Hormone replacement therapy; Z88.8 Allergy status to other drugs, medicaments and biological substances; Z91.09 Other allergy status, other than to drugs and biological substances; Z88.2 Allergy status to sulfonamides; M19.90 Unspecified osteoarthritis, unspecified site; W01.198A Fall on same level from slipping, tripping and stumbling with subsequent striking against other object, initial encounter; Y93.01 Activity, walking, marching and hiking
CPT/HCPCS: 70450; 72125; 99284

== ENCOUNTER → 2021-09-03 | Outpatient (CLI) | payer MEDICARE, BC ==
--- NOTE | 2021-09-03 09:40 | US ---
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 EXAM MEASUREMENTS: Right Kidney: 10.6 x 4.7 x 5.3 cm Left Kidney: 11.3 x 5.4 x 4.6 cm Right Kidney: No hydronephrosis or masses seen Left Kidney: No hydronephrosis or masses seen Bladder: not fully distended There is no evidence for hydronephrosis at this point in time. No nephrolithiasis is seen. No teofilo s are identified. The urinary bladder is anechoic. Bilateral ureteral jets are seen. IMPRESSION: No discrete abnormality seen at this time.
[2021-09-03 14:37] LABS: HCT 36.8 % (37.2-46.3); HGB 11.7 g/dL (12.0-15.0); MCH 29.8 pg (27.0-32.0); MCHC 31.8 g/dL (32.0-37.0); MCV 93.9 fL (80.0-97.0); Mean Platelet Volume 12.2 fL (9.5-12.2); NRBC Per 100 WBC 0 /100 WBCS (0.0-0.0); Platelet Count 173 X 10*3/uL (140-440); RBC 3.92 X 10*6/uL (4.10-5.20); RDW 12.9 % (11.5-14.5); WBC 6.23 X 10*3/uL (4.50-10.00)
[2021-09-03 14:46] LABS: African American GFR (CKD) 73.5 (60.0-200.0); Albumin 3.9 g/dL (3.8-4.9); Albumin/Globulin Ratio 1.44 (1.60-3.17); Anion Gap 11.3 mmol/L (10.00-18.00); BUN/Creat Ratio 24.67 Ratio (12.00-20.00); Blood Urea Nitrogen 22.2 mg/dL (9.0-27.0); Calcium 9.4 mg/dL (8.7-10.3); Carbon Dioxide 21.7 mmol/L (20.0-27.5); Globulin 2.7 g/dL (1.6-3.3); Non-African American GFR(CKD) 63.4 (60.0-200.0); Potassium 4.4 mmol/L (3.5-5.5); Total Bilirubin 0.5 mg/dL (0.30-1.20); Total Protein 6.6 g/dL (6.2-8.2)
[2021-09-03 16:10] LABS: Appearance,Urine Clear (Clear); Bilirubin,Urine Negative (Negative); Blood,Urine Negative (Negative); Color,Urine Yellow (Yellow); Ketones,Urine Trace mg/dL (Negative); Leukocyte Esterase,Urine Trace (Negative); Nitrite,Urine Negative (Negative); PH, Urine 5.5 (5.0-8.0); Protein,Urine Negative (Negative); Specific Gravity,Urine 1.018 (1.001-1.030)
[2021-09-03 16:11] LABS: Bacteria,Urine None Seen /HPF (None Seen); RBC,Urine 0-2 /HPF (0-2); WBC,Urine 0-5 /HPF (0-5)
== END | disposition home or self-care (01) ==
LOC: RADUSWWP 08:44
PROVIDERS: ATTEND Internal Medicine Endocrinology, Diabetes & Metabolism
DX: E11.21 Type 2 diabetes mellitus with diabetic nephropathy (principal)
CPT/HCPCS: 76770; 80053; 81001; 85027

== ENCOUNTER 2023-11-17 08:45 | Inpatient (IN) | payer MEDICARE, BC ==
[2023-11-17 08:51] LABS: Glucose,Whole Blood >600 mg/dL (70-110)
[2023-11-17] MEDS: SODIUM CHLORIDE 0.9% 1,000 ML IV STA (09:04)
--- NOTE | 2023-11-17 09:21 | ED ---
General Adult HPI - General Chief complaint: Recheck/Abnormal Lab/Rx Stated complaint: DKA Time Seen by Provider: 11/17/23 08:50 Source: patient, family, EMS, RN notes reviewed, old records reviewed Mode of arrival: EMS Limitations: altered mental status - History of Present Illness Initial comments: 73-year-old female known diabetic presenting in extremis. Patient is tachypneic with blood glucose measuring over 600 by paramedics. She was found in her home with dried vomit. She apparently had a suspected low blood glucose 2 days prior but was alert and oriented. This morning she was somewhat confused but able to answer questions. Her daughter provides a history that she has had similar episode related to DKA in the past. Patient denies current pain complaints but history is very limited. Is no reported fever. - Related Data Home Medications Medication Instructions Recorded Confirmed ramipriL [Altace] 2.5 mg PO DAILY 01/19/16 03/02/19 FLUoxetine HCL [PROzac] 20 mg PO DAILY 02/15/17 03/02/19 Levothyroxine Sodium [Synthroid] 50 mcg PO DAILY 04/14/18 03/02/19 Levothyroxine Sodium [Synthroid] 200 mcg PO DAILY 04/14/18 03/02/19 Acetaminophen [Tylenol] 650 mg PO Q6H PRN 12/30/18 03/02/19 Gabapentin [Neurontin] 100 mg PO BID 12/30/18 03/02/19 Insulin Glargine,Hum.rec.anlog 30 units SQ HS 12/30/18 03/02/19 [Toujeo Solostar] Insulin Lispro [humaLOG Kwikpen] See Protocol SQ AC-TID 12/30/18 03/02/19 allopurinoL [Zyloprim] 300 mg PO HS 12/30/18 03/02/19 rOPINIRole HCL [Requip] 1 mg PO HS 02/28/19 03/02/19 Previous Rx's Medication Instructions Recorded traMADol HCl [Ultram] 50 mg PO Q8H PRN #30 tab 09/16/18 Ciprofloxacin HCl [Cipro] 500 mg PO BID 7 Days #14 tab 03/01/19 Allergies Allergy/AdvReac Type Severity Reaction Status Date / Time formaldehyde Allergy Itching Verified 11/17/23 09:01 nickel Allergy Itching Verified 11/17/23 09:01 quaternium Allergy Itching Verified 11/17/23 09:01 Sulfa (Sulfonamide Allergy Itching Verified 11/17/23 09:01 Antibiotics) Review of Systems ROS Statement: Those systems with pertinent positive or pertinent negative responses have been documented in the HPI. ROS Other: All systems not noted in ROS Statement are negative. Past Medical History Past Medical History: Heart Failure, Diabetes Mellitus, GI Bleed, Hypertension, Osteoarthritis (OA), Thyroid Disorder Additional Past Medical History / Comment(s): IDDM type I per pt, peripheral neuropathy bilateral hands and feet, arthritis bilateral hands, occasional low back pain, gout L great toe, hypothyroid, L great toe callus, lower GI bleed, diverticulosis, RLS. hep C History of Any Multi-Drug Resistant Organisms: None Reported Past Surgical History: Cholecystectomy, Hernia Repair, Joint Replacement Additional Past Surgical History / Comment(s): Umbilical hernia repair, kidney s tone basketing and lithotripsy, total L knee arthroplasty, colonoscopy. Past Anesthesia/Blood Transfusion Reactions: Postoperative Nausea & Vomiting (PONV) Additional Past Anesthesia/Blood Transfusion Reaction / Comment(s): Ponv x1. Past Psychological History: Anxiety, Depression, Panic Disorder Smoking Status: Never smoker Past Alcohol Use History: Rare Past Drug Use History: None Reported - Past Family History Father History Unknown: Yes Family Medical History: Diabetes Mellitus Additional Family Medical History / Comment(s): etoh Mother Family Medical History: Liver Disease Additional Family Medical History / Comment(s): etoh Brother(s) Additional Family Medical History / Comment(s): depression, etoh General Exam Limitations: altered mental status General appearance: lethargic, in distress Head exam: Present: atraumatic, normocephalic Eye exam: Present: PERRL ENT exam: Present: mucous membranes dry Respiratory exam: Present: respiratory distress, other (Tachypnea with good air entry) Cardiovascular Exam: Present: normal rhythm, tachycardia GI/Abdominal exam: Present: soft. Absent: distended, tenderness, guarding, rebound Extremities exam: Present: normal capillary refill Neurological exam: Absent: oriented X3 Skin exam: Present: warm, dry, intact. Absent: cyanosis Course Vital Signs 11/17/23 11/17/23 11/17/23 08:56 09:27 09:30 Temperature 97.5 F L Pulse Rate 65 105 H 105 H Respiratory 32 H 26 H 25 H Rate Blood Pressure 124/88 117/65 117/65 O2 Sat by Pulse 90 L 100 100 Oximetry Medical Decision Making - Medical Decision Making Was pt. sent in by a medical professional or institution (WALLY Nugent, HYDRATE THICKENER OPERATOR, urgent care, hospital, or [facility]...) When possible be specific @ -No Did you speak to anyone other than the patient for history (EMS, parent, family, police, friend...)? What history was obtained from this source @ -History from daughter Did you review nursing and triage notes (agree or disagree)? Why? @ -I reviewed and agree with nursing and triage notes Were old charts reviewed (outside hosp., previous admission, EMS record, old EKG, old radiological studies, urgent care reports/EKG's, [facility] records)? Report findings @ -No old charts were reviewed Differential Diagnosis differential Altered Mental Status: Hypoglycemia, DKA, hypercapnia, ETOH, overdose, CO poisoning, trauma, myxedema coma, HTN encephalopathy, infection, encephalitis, psychosis, intercranial hemorrhage, hepatic encephalopathy, meningitis, CVA, this is not meant to be an all-inclusive list EKG interpreted by me (3pts min.). @Tachycardia with right bundle branch block, no definitive sinus mechanism, rate of 107, QRS duration 151, QTc [address] segment elevation. X-rays interpreted by me (1pt min.). @ -Chest x-ray negative for focal pneumonia, no acute findings CT interpreted by me (1pt min.). @ -None done U/S interpreted by me (1pt. min.). @ -None done What testing was considered but not performed or refused? (CT, X-rays, U/S, labs)? Why? @ -None What meds were considered but not given or refused? Why? @ -None Did you discuss the management of the patient with other professionals (professionals i.e. WALLY Nugent, HYDRATE THICKENER OPERATOR, lab, RT, psych nurse, director of social services, lathe setup operator, teacher, deputy juvenile officer, adult protective caseworker)? Give summary @ -[Case discussed with Dr. Russell and [facility] group Was smoking cessation discussed for >3mins.? @ -No Was critical care preformed (if so, how long)? @ -Yes, 35 minutes Were there social determinants of health that impacted care today? How? (Homelessness, low income, unemployed, alcoholism, drug addiction, transportation, low edu. Level, literacy, decrease access to med. care, alf, rehab)? @ -No Was there de-escalation of care discussed even if they declined (Discuss DNR or withdrawal of care, Hospice)? DNR status @ -No What co-morbidities impacted this encounter? (DM, HTN, Smoking, COPD, CAD, Cancer, CVA, ARF, Chemo, Hep., AIDS, mental health diagnosis, sleep apnea, morbid obesity)? @ -Diabetes Was patient admitted / discharged? Hospital course, mention meds given and route, prescriptions, significant lab abnormalities, going to OR and other pertinent info. @73-year-old female presenting an extremis, tachypneic, tachycardic. Patient is able to answer simple questions but is moderately confused. No focal neurologic findings. Blood sugar reading greater than 600, IV established, IV fluids initiated for suspected DKA. Laboratory testing confirms severe DKA with pH of 6.86, nondetectable CO2, potassium of 6.5, she has an elevated BUN and cr eatinine. She has a lactic acid of 6.7. Blood sugar is 1219. She is acetone positive. She started on insulin and is admitted to the ICU. I discussed case with Dr. Russell who will accept patient to the ICU for treatment of DKA. He recommends sodium bicarb administration. Undiagnosed new problem with uncertain prognosis? @ -No Drug Therapy requiring intensive monitoring for toxicity (Heparin, Nitro, Insulin, Cardizem)? @ -No Were any procedures done? @ -No Diagnosis/symptom? @ -Severe DKA Acute, or Chronic, or Acute on Chronic? @ -Acute Uncomplicated (without systemic symptoms) or Complicated (systemic symptoms)? @Complicated Side effects of treatment? @ -No Exacerbation, Progression, or Severe Exacerbation? @ -No Poses a threat to life or bodily function? How? (Chest pain, USA, ME, pneumonia, PE, COPD, DKA, ARF, appy, cholecystitis, CVA, Diverticulitis, Homicidal, Suicidal, threat to staff... and all critical care pts) @Yes, severe DKA - Lab Data Result diagrams: 11/17/23 09:07 11/17/23 09:07 Lab Results 11/17/23 11/17/23 11/17/23 Range/Units 08:50 09:07 09:07 WBC 26.0 H (3.8-10.6) k/uL RBC 4.21 (3.80-5.40) m/uL Hgb 13.5 (11.4-16.0) gm/dL Hct 48.1 H (34.0-46.0) % MCV 114.4 H (80.0-100.0) fL MCH 32.0 (25.0-35.0) pg MCHC 28.0 L (31.0-37.0) g/dL RDW 13.4 (11.5-15.5) % Plt Count 292 (150-450) k/uL MPV 11.3 Hypochromasia Marked Macrocytosis Marked A PT 11.3 (10.0-12.5) sec INR 1.0 (<1.2) APTT 19.2 L (22.0-30.0) sec VBG pH (7.31-7.41) VBG pCO2 (37-51) mmHg VBG HCO3 (24-28) mmol/L Sodium (137-145) mmol/L Potassium (3.5-5.1) mmol/L Chloride (98-107) mmol/L Carbon Dioxide (22-30) mmol/L Anion Gap mmol/L BUN (7-17) mg/dL Creatinine (0.52-1.04) mg/dL Est GFR (CKD-EPI)AfAm (>60 ml/min/1.73 sqM) Est GFR (CKD-EPI)NonAf (>60 ml/min/1.73 sqM) Glucose (74-99) mg/dL POC Glucose (mg/dL) >600 H* (70-110) mg/dL POC Glu Prosthetic Assistant ID Adebayo Guy Plasma Lactic Acid Guicho (0.7-2.0) mmol/L Calcium (8.4-10.2) mg/dL Magnesium (1.6-2.3) mg/dL Total Bilirubin (0.2-1.3) mg/dL AST (14-36) U/L ALT (4-34) U/L Alkaline Phosphatase (38-126) U/L Total Protein (6.3-8.2) g/dL Albumin (3.5-5.0) g/dL Acetone, Qual (Negative) Blood Type Recheck Bld Type Recheck Status Spec Expiration Date 11/17/23 11/17/23 11/17/23 Range/Units 09:07 09:07 09:07 WBC (3.8-10.6) k/uL RBC (3.80-5.40) m/uL Hgb (11.4-16.0) gm/dL Hct (34.0-46.0) % MCV (80.0-100.0) fL MCH (25.0-35.0) pg MCHC (31.0-37.0) g/dL RDW (11.5-15.5) % Plt Count (150-450) k/uL MPV Hypochromasia Macrocytosis PT (10.0-12.5) sec INR (<1.2) APTT (22.0-30.0) sec VBG pH 6.86 L* (7.31-7.41) VBG pCO2 30 L (37-51) mmHg VBG HCO3 5 L* (24-28) mmol/L Sodium 129 L (137-145) mmol/L Potassium 6.5 H* (3.5-5.1) mmol/L Chloride 93 L (98-107) mmol/L Carbon Dioxide <5 L* (22-30) mmol/L Anion Gap mmol/L BUN 41 H (7-17) mg/dL Creatinine 1.97 H (0.52-1.04) mg/dL Est GFR (CKD-EPI)AfAm 28 (>60 ml/min/1.73 sqM) Est GFR (CKD-EPI)NonAf 24 (>60 ml/min/1.73 sqM) Glucose 1219 H* (74-99) mg/dL POC Glucose (mg/dL) (70-110) mg/dL POC Glu Prosthetic Assistant ID Plasma Lactic Acid Guicho 6.7 H* (0.7-2.0) mmol/L Calcium 8.9 (8.4-10.2) mg/dL Magnesium 2.3 (1.6-2.3) mg/dL Total Bilirubin 0.7 (0.2-1.3) mg/dL AST 23 (14-36) U/L ALT 17 (4-34) U/L Alkaline Phosphatase 168 H (38-126) U/L Total Protein 6.7 (6.3-8.2) g/dL Albumin 4.2 (3.5-5.0) g/dL Acetone, Qual Positive (Negative) Blood Type Recheck Bld Type Recheck Status Spec Expiration Date 11/17/23 Range/Units 09:07 WBC (3.8-10.6) k/uL RBC (3.80-5.40) m/uL Hgb (11.4-16.0) gm/dL Hct (34.0-46.0) % MCV (80.0-100.0) fL MCH (25.0-35.0) pg MCHC (31.0-37.0) g/dL RDW (11.5-15.5) % Plt Count (150-450) k/uL MPV Hypochromasia Macrocytosis PT (10.0-12.5) sec INR (<1.2) APTT (22.0-30.0) sec VBG pH (7.31-7.41) VBG pCO2 (37-51) mmHg VBG HCO3 (24-28) mmol/L Sodium (137-145) mmol/L Potassium (3.5-5.1) mmol/L Chloride (98-107) mmol/L Carbon Dioxide (22-30) mmol/L Anion Gap mmol/L BUN (7-17) mg/dL Creatinine (0.52-1.04) mg/dL Est GFR (CKD-EPI)AfAm (>60 ml/min/1.73 sqM) Est GFR (CKD-EPI)NonAf (>60 ml/min/1.73 sqM) Glucose (74-99) mg/dL POC Glucose (mg/dL) (70-110) mg/dL POC Glu Prosthetic Assistant ID Plasma Lactic Acid Guicho (0.7-2.0) mmol/L Calcium (8.4-10.2) mg/dL Magnesium (1.6-2.3) mg/dL Total Bilirubin (0.2-1.3) mg/dL AST (14-36) U/L ALT (4-34) U/L Alkaline Phosphatase (38-126) U/L Total Protein (6.3-8.2) g/dL Albumin (3.5-5.0) g/dL Acetone, Qual (Negative) Blood Type Recheck No Previous Record Bld Type Recheck Status CABO Indicated Spec Expiration Date 11/20/20232306 Critical Care Time Critical Care Time: Yes Total Critical Care Time: 35 Disposition Clinical Impression: DKA (diabetic ketoacidoses) Disposition: ADMITTED IP TO THIS [facility] Condition: Serious Is patient prescribed a controlled substance at d/c from ED?: No Referrals: Diogenes Riddle DO [Primary Care Provider] - 1-2 days Time of Disposition: 10:09
[2023-11-17 09:31] LABS: Prothrombin Time 11.3 sec (10.0-12.5)
[2023-11-17 09:33] LABS: HCT 48.1 % (34.0-46.0); HGB 13.5 gm/dL (11.4-16.0); Hypochromasia Marked; MCV 114.4 fL (80.0-100.0); Macrocytosis Marked; Mean Platelet Volume 11.3; Platelet Count 292 k/uL (150-450); RBC 4.21 m/uL (3.80-5.40); RDW 13.4 % (11.5-15.5)
[2023-11-17 09:34] LABS: VBG PH 6.86 (7.31-7.41)
[2023-11-17 09:43] LABS: ALT 17 U/L (4-34); AST 23 U/L (14-36); African American GFR (CKD) 28 (>60 ml/min/1.73 sqM); Albumin 4.2 g/dL (3.5-5.0); Alkaline Phosphatase 168 U/L (38-126); Blood Urea Nitrogen 41 mg/dL (7-17); Calcium 8.9 mg/dL (8.4-10.2); Chloride 93 mmol/L (98-107); Magnesium 2.3 mg/dL (1.6-2.3); Non-African American GFR(CKD) 24 (>60 ml/min/1.73 sqM); Sodium 129 mmol/L (137-145); Total Bilirubin 0.7 mg/dL (0.2-1.3); Total Protein 6.7 g/dL (6.3-8.2)
[2023-11-17] MEDS: SODIUM CHLORIDE 0.9% 1,000 ML IV ONE (09:46)
--- NOTE | 2023-11-17 09:46 | XR ---
EXAMINATION TYPE: XR chest 1V portable DATE OF EXAM: 11/17/2023 9:36 AM CLINICAL INDICATION:Female, 73 years old with history of kiki; [facility] COMPARISON: Chest radiographs from 02/28/2019 TECHNIQUE: XR chest 1V portable Frontal view of the chest. FINDINGS: Lungs/Pleura: There is flattening of the diaphragm with increased lucency of the lungs. No evidence o f pneumothorax, pleural effusion or focal consolidation. Pulmonary vascularity: Unremarkable. Heart/mediastinum: Cardiomediastinal silhouette is unremarkable. Musculoskeletal: No acute osseous pathology. IMPRESSION: 1. No acute cardiopulmonary disease process. 2. COPD changes.
[2023-11-17 09:47] LABS: Partial Thromboplastin Time 19.2 sec (22.0-30.0)
[2023-11-17 09:52] LABS: Carbon Dioxide <5 mmol/L (22-30)
[2023-11-17 09:53] LABS: Glucose 1219 mg/dL (74-99); Potassium 6.5 mmol/L (3.5-5.1)
[2023-11-17 09:55] LABS: Amorphous Sediment,Urine Occasional /hpf; Appearance,Urine Cloudy (Clear); Bacteria,Urine Occasional /hpf; Bilirubin,Urine Negative (Negative); Blood,Urine Trace (Negative); Color,Urine Colorless; Glucose,Urine (UA) 4+ (Negative); Hyaline Casts,Urine 15 /lpf (0-2); Leukocyte Esterase,Urine Moderate (Negative); Mucus,Urine Rare /hpf; Nitrite,Urine Negative (Negative); Protein,Urine Trace (Negative); RBC,Urine 2 /hpf (0-5); Squamous Epithelial Cell,Urine <1 /hpf (0-4); Urobilinogen,Urine <2.0 mg/dL (<2.0); WBC,Urine 22 /hpf (0-5)
[2023-11-17] MEDS: SODIUM BICARB 8.4% 50 ML SYR (1 MEQ/ML) IV STA (10:19)
[2023-11-17] MEDS: INSULIN REGULAR 100 UNIT/ML VIAL (IV) IV ONE (10:25)
[2023-11-17] MEDS: SODIUM CHLORIDE 0.9% 1,000 ML IV SCH (10:27)
[2023-11-17] MEDS: INSULIN REGULAR 100 UNIT in SODIUM CHLORIDE 0.9% 100 ML IV SCH (10:29)
[2023-11-17] MEDS: INSULIN REGULAR BOLUS (FROM DRIP BAG) IV ONE (10:35)
[2023-11-17 10:53] LABS: Ketones,Urine 2+ (Negative)
[2023-11-17 11:02] LABS: Band Neutrophils % 2 %; Lymphocytes # (M) 0.78 k/uL (1.0-4.8); Metamyelocytes # (M) 0.26 k/uL (0); Metamyelocytes % 1 %; Monocytes # (M) 1.82 k/uL (0-1.0); Myelocytes # (M) 0.52 k/uL (0); Myelocytes % 2 %; Neutrophils % (M) 87 %; Nucleated Red Blood Cells 0 /100 WBC (0-0); Total Cells Counted 200
[2023-11-17 11:30] LABS: Glucose,Whole Blood >600 mg/dL (70-110)
[2023-11-17 12:34] LABS: Glucose,Whole Blood >600 mg/dL (70-110)
[2023-11-17 13:32] LABS: Glucose,Whole Blood >600 mg/dL (70-110)
--- NOTE | 2023-11-17 13:48 | P.CNPUL ---
History of Present Illness Consult date: 11/17/23 Chief complaint: Altered mental status History of present illness: This is a 73-year-old female patient who is coming in today to emergency [facility] with lethargy and weakness and tachypnea the patient was found to have elevated blood sugars and subsequently patient was diagnosed having DKA. The patient has type 1 diabetes mellitus. The daughter is a nurse and she does question her compliancy today insulin intake. Obviously, the patient is currently lethargic and sleepy and altered mentally related to her severe metabolic derangements related to DKA. No fever. Labs were noted and the patient has a white cell count of 26, hemoglobin 15.5 and a platelet count of 292. Venous pH was 6.8. Sodium is at 129, potassium is at 6.5, serum bicarb is less than 5, BUN is 41 with a creatinine 1.9. Glucose was 1219. Left hemoglobin 6.7. UA showing 22 WBCs, 2 RBCs, +4 glucose and +2 ketones and serum acetone is positive. The viral screen is negative. Chest x-ray is clear. Patient was given aggressive IV fluid resuscitation. Subsequently, the patient was transferred to the intensive care unit. Due to lack of IV access, triple-tonio men catheter was inserted. She is currently on insulin drip which is running at 15 units an hour. She is also on normal saline at rate of 200 cc an hour. She was given IV bicarb in the emergency department. She is currently on 5 L of oxygen by nasal cannula. No reported aspiration. Review of Systems ROS unobtainable: due to mental status Past Medical History Past Medical History: Heart Failure, Diabetes Mellitus, GI Bleed, Hypertension, Osteoarthritis (OA), Thyroid Disorder Additional Past Medical History / Comment(s): IDDM type I per pt, peripheral neuropathy bilateral hands and feet, arthritis bilateral hands, occasional low back pain, gout L great toe, hypothyroid, L great toe callus, lower GI bleed, diverticulosis, RLS. hep C History of Any Multi-Drug Resistant Organisms: None Reported Past Surgical History: Cholecystectomy, Hernia Repair, Joint Replacement Additional Past Surgical History / Comment(s): Umbilical hernia repair, kidney stone basketing and lithotripsy, total L knee arthroplasty, colonoscopy. Past Anesthesia/Blood Transfusion Reactions: Postoperative Nausea & Vomiting (PONV) Additional Past Anesthesia/Blood Transfusion Reaction / Comment(s): Ponv x1. Past Psychological History: Anxiety, Depression, Panic Disorder Smoking Status: Never smoker Past Alcohol Use History: Rare Past Drug Use History: None Reported - Past Family History Father History Unknown: Yes Family Medical History: Diabetes Mellitus Additional Family Medical History / Comment(s): etoh Mother Family Medical History: Liver Disease Additional Family Medical History / Comment(s): etoh Brother(s) Additional Family Medical History / Comment(s): depression, etoh Medications and Allergies Home Medications Medication Instructions Recorded Confirmed Type Insulin Glargine,Hum.rec.anlog 45 units SQ DAILY 12/30/18 11/17/23 History [Toujeo Solostar] Insulin Lispro [humaLOG Kwikpen] See Protocol SQ ACHS 12/30/18 11/17/23 History FLUoxetine HCL [Sarafem] 20 mg PO DAILY 11/17/23 11/17/23 History FLUoxetine HCL [Sarafem] 60 mg PO DAILY 11/17/23 11/17/23 History Levothyroxine Sodium [Synthroid] 125 mcg PO DAILY 11/17/23 11/17/23 History Allergies Allergy/AdvReac Type Severity Reaction Status Date / Time formaldehyde Allergy Itching Verified 11/17/23 10:42 nickel Allergy Itching Verified 11/17/23 10:42 quaternium Allergy Itching Verified 11/17/23 10:42 Sulfa (Sulfonamide Allergy Itching Verified 11/17/23 10:42 Antibiotics) Physical Exam Vitals: Vital Signs Temp Pulse Resp BP Pulse Ox 11/17/23 10:30 92 17 110/76 100 11/17/23 10:00 96 22 111/49 100 11/17/23 09:30 105 H 25 H 117/65 100 11/17/23 09:27 105 H 26 H 117/65 100 11/17/23 08:56 97.5 F L 65 32 H 124/88 90 L Intake and Output 11/16/23 11/17/23 11/17/23 22:59 06:59 14:59 Other: Weight 136.078 kg Patient is lethargic, confused, currently on 5 L of oxygen by nasal cannula. She has deep rapid breathing. Head exam was generally normal. There was no scleral icterus or corneal arcus. Mucous membranes were moist. Neck was supple and without jugular venous distension, thyromegaly, or carotid bruits. Carotids were easily palpable bilaterally. There was no adenopathy. Lungs were clear to auscultation and percussion, and with normal diaphragmatic excursion. No wheezes or rales were noted. Cardiac exam revealed the PMI to be normally situated and sized. The rhythm was regular and no extrasystoles were noted during several minutes of auscultation. The first and second heart sounds were normal and physiologic splitting of the second heart sound was noted. There were no murmurs, rubs, clicks, or gallops. Abdominal exam revealed normal bowel sounds. The abdomen was soft, non-tender, and without masses, organomegaly, or appreciable enlargement of the abdominal aorta. Examination of the extremities revealed easily palpable radial, femoral and p edal pulses. There was no cyanosis, clubbing or edema. Examination of the skin revealed no evidence of significant rashes, suspicious appearing nevi or other concerning lesions. The patient has a left subclavian triple-lumen catheter in place. Neurologically awake and alert and there is no focal neurological deficits. The patient has significant motor weakness both in the upper and lower extremities. She is barely able to raise her arms against gravity. She has a decent cough. No facial weakness. She is following commands and answering questions appropriately. Psychiatric to the patient has no delusions or hallucinations. Results - Laboratory Findings CBC and BMP: 11/17/23 09:07 11/17/23 09:07 PT/INR, D-dimer PT 11.3 sec (10.0-12.5) 11/17/23 09:07 INR 1.0 (<1.2) 11/17/23 09:07 Abnormal lab findings: Abnormal Labs 11/17/23 11/17/23 11/17/23 08:50 09:07 09:07 WBC 26.0 H Hct 48.1 H MCV 114.4 H MCHC 28.0 L Macrocytosis Marked A APTT 19.2 L VBG pH VBG pCO2 VBG HCO3 Sodium Potassium Chloride Carbon Dioxide BUN Creatinine Glucose POC Glucose (mg/dL) >600 H* Plasma Lactic Acid Guicho Alkaline Phosphatase 11/17/23 11/17/23 11/17/23 09:07 09:07 09:07 WBC Hct MCV MCHC Macrocytosis APTT VBG pH 6.86 L* VBG pCO2 30 L VBG HCO3 5 L* Sodium 129 L Potassium 6.5 H* Chloride 93 L Carbon Dioxide <5 L* BUN 41 H Creatinine 1.97 H Glucose 1219 H* POC Glucose (mg/dL) Plasma Lactic Acid Guicho 6.7 H* Alkaline Phosphatase 168 H - Diagnostic Findings Chest x-ray: image reviewed Assessment and Plan Plan: Acute DKA with severe anion gap metabolic acidosis and hyperkalemia and hyperglycemia along with severe dehydration, rule insulin noncompliance Severe dehydration Acute leukocytosis, likely reactive Acute hyperkalemia secondary to above and the patient has a urinary catheter chronic acidosis Anion gap Metabolic acidosis due to acetone and lactate Acute kidney injury secondary to above Type 1 diabetes mellitus Diabetic peripheral neuropathy Degenerative arthritis Gout Diverticulosis Hypertension History of nephrolithiasis and kidney stones Plan Transfer the patient to the intensive care unit. Normal saline at a rate of disease an hour and the patient was given 3 L boluses in the emergency department insulin drip per DKA protocol Monitor blood sugars and electrolytes Heparin subcu for DVT prophylaxis Keep the patient n.p.o. for now Titrate oxygen flow to maintain saturation above 90%
--- NOTE | 2023-11-17 13:49 | P.PCN ---
Date of Procedure: 11/17/23 Preoperative Diagnosis: DKA Postoperative Diagnosis: DKA Operative Findings: Procedure(s) Performed: Central line, left subclavian Anesthesia: local Surgeon: Abel Russell Pathology: other Condition: critical Disposition: ICU Operative Findings: PROCEDURE SUMMARY: The [facility] Central Line Insertion Practices form was completed during and immediately following the procedure. A time out was performed. My hands were washed immediately prior to the procedure. I wore a surgical cap, mask with protective eyewear, full gown and sterile gloves throughout the procedure. The patient was placed in Trendelenburg position. Left chest area was cleaned using ChloraPrep and draped in sterile fashion using a three quarter sheet drape and sterile towels. Skin preparation was allowed to dry prior to skin puncture. Anatomic landmarks were identified. Anesthesia was achieved over the vein using 1% lidocaine. Using real-time ultrasound, with sterile probe cover and sterile gel, the introducer needle was inserted into the vein under direct ultrasound visualization. Venous blood was withdrawn. The syringe was removed and a guidewire was advanced into the introducer needle. The guidewire was visualized in the appropriate vein by ultrasound. A small incision was made at the skin perea rface with a scalpel and the introducer needle was exchanged for a dilator over the guidewire. After appropriate dilation was obtained, the dilator was exchanged over the wire for a central venous catheter. The wire was removed and the catheter was sutured in place A biopatch was placed at the insertion site. A sterile op-site was placed over the catheter and biopatch. The patient tolerated the procedure without any hemodynamic compromise. At time of procedure completion, all ports aspirated and flushed properly. Post-procedure chest x-ray : [_] Is pending at this time. [_x ] Shows adequate positioning of the catheter for use.
--- NOTE | 2023-11-17 14:03 | XR ---
EXAMINATION TYPE: XR chest 1V portable DATE OF EXAM: 11/17/2023 1:38 PM CLINICAL INDICATION:Female, 73 years old with history of central line placement; [facility] COMPARISON: Chest radiographs from 11/17/2023 TECHNIQUE: XR chest 1V portable Frontal view of the chest. FINDINGS: Lungs/Pleura: Prominent interstitial lung markings are seen scattered throughout the lungs with yelena ening of the diaphragm and increased lucency of the lung apices. No evidence of focal consolidation, pneumothorax or pleural effusion. Pulmonary vascularity: Pulmonary vascular congestion. Heart/mediastinum: Cardiomediastinal silhouette is enlarged and stable. Musculoskeletal: No acute osseous pathology. Other findings: None Lines/Tubes: Left internal jugular central venous catheter with distal tip at the cavoatrial junction. IMPRESSION: 1. Left central venous catheter in appropriate position. 2. Cardiomegaly and mild pulmonary vascular congestion. Correlate with BNP for congestive heart fail ure. 3. COPD.
[2023-11-17] MEDS: PANTOPRAZOLE 40 MG/10 ML VIAL IVP SCH (14:22)
[2023-11-17] MEDS: PIPERACILLIN-TAZOBACTAM 3.375 GM in SODIUM CHLORIDE 0.9% 100 ML IVPB SCH (14:23)
[2023-11-17] MEDS: HEPARIN SODIUM,PORCINE 5,000 UNIT/ML 1 ML VIAL SQ SCH (14:23)
[2023-11-17 14:28] LABS: Glucose,Whole Blood >600 mg/dL (70-110)
[2023-11-17 14:31] LABS: African American GFR (CKD) 32 (>60 ml/min/1.73 sqM); Anion Gap 26 mmol/L; Blood Urea Nitrogen 42 mg/dL (7-17); Calcium 8.2 mg/dL (8.4-10.2); Chloride 104 mmol/L (98-107); Non-African American GFR(CKD) 28 (>60 ml/min/1.73 sqM); Phosphorus 3.4 mg/dL (2.5-4.5); Sodium 136 mmol/L (137-145)
[2023-11-17 14:38] LABS: Carbon Dioxide 6 mmol/L (22-30); Glucose 735 mg/dL (74-99)
[2023-11-17 14:50] LABS: Potassium 3.9 mmol/L (3.5-5.1)
[2023-11-17 14:57] LABS: Amylase 114 U/L (30-110); Lipase 1221 U/L (23-300)
[2023-11-17 15:33] LABS: Glucose,Whole Blood >600 mg/dL (70-110)
[2023-11-17] MEDS ORDERED: PIPERACILLIN-TAZOBACTAM 3.375 GM in SODIUM CHLORIDE 0.9% 100 ML IVPB SCH (16:00)
[2023-11-17 16:37] LABS: Glucose,Whole Blood 551 mg/dL (70-110)
[2023-11-17 17:44] LABS: African American GFR (CKD) 33 (>60 ml/min/1.73 sqM); Anion Gap 12 mmol/L; Blood Urea Nitrogen 45 mg/dL (7-17); Carbon Dioxide 15 mmol/L (22-30); Chloride 109 mmol/L (98-107); Glucose 490 mg/dL (74-99); Non-African American GFR(CKD) 28 (>60 ml/min/1.73 sqM); Phosphorus 1.4 mg/dL (2.5-4.5); Potassium 3.5 mmol/L (3.5-5.1); Sodium 136 mmol/L (137-145)
[2023-11-17 18:29] LABS: Glucose,Whole Blood 479 mg/dL (70-110)
[2023-11-17 18:29] LABS: Glucose,Whole Blood 442 mg/dL (70-110)
[2023-11-17 19:29] LABS: Glucose,Whole Blood 330 mg/dL (70-110)
[2023-11-17] MEDS: POTASSIUM PHOSPHATE 10 MMOL in SODIUM CHLORIDE 0.9% 100 ML IV SCH (19:59)
[2023-11-17] MEDS: POTASSIUM CHLORIDE 20 MEQ in WATER FOR INJECTION 1 100ML.BAG IVPB STA ×2 (20:01→21:58)
[2023-11-17 20:32] LABS: Glucose,Whole Blood 223 mg/dL (70-110)
[2023-11-17] MEDS: D5-0.45% NACL WITH KCL 20MEQ/L 1,000 ML IV SCH (20:34)
[2023-11-17 21:39] LABS: Glucose,Whole Blood 192 mg/dL (70-110)
[2023-11-17 22:13] LABS: African American GFR (CKD) 37 (>60 ml/min/1.73 sqM); Anion Gap 9 mmol/L; Blood Urea Nitrogen 44 mg/dL (7-17); Calcium 8.7 mg/dL (8.4-10.2); Carbon Dioxide 18 mmol/L (22-30); Chloride 113 mmol/L (98-107); Glucose 220 mg/dL (74-99); Non-African American GFR(CKD) 32 (>60 ml/min/1.73 sqM); Potassium 3.4 mmol/L (3.5-5.1); Sodium 140 mmol/L (137-145)
[2023-11-17 22:36] LABS: Glucose,Whole Blood 171 mg/dL (70-110)
[2023-11-17] MEDS ORDERED: Potassium Replacement Protocol 1 EACH MISC MISCELLANE PRN (22:36)
[2023-11-17 23:33] LABS: Glucose,Whole Blood 146 mg/dL (70-110)
--- NOTE | 2023-11-17 23:40 | HP ---
HISTORY AND PHYSICAL CHIEF COMPLAINT: Uncontrolled diabetes mellitus type 2, history of fall, and change in mental status. HISTORY OF PRESENT ILLNESS: This is a 73-year-old woman with a past medical history of multiple medical problems including diabetes mellitus type 2, was having fluctuating blood sugars. The patient was found to be confused and weak and tachypneic and sugars were found to be more than 600, at the ER it was more than 1200, which was acute diabetic ketoacidosis. The patient was admitted for further evaluation and treatment. The patient also had elevated WBC. Sepsis also suspected. The patient had a history of fall also. The patient has some dried vomitus also. Evaluation of WBC 26, possible UTI, metabolic acidosis. The chest x-ray which I reviewed personally showed no acute abnormalities at this time. The patient is being admitted for further evaluation and treatment. The patient is unable to provide any coherent history. History is obtained from the patient's daughter and review of the chart and from the staff. PAST MEDICAL HISTORY: Reviewed include CHF, diabetes mellitus type 2, DJD. The rest of the history and chart is also reviewed. HOME MEDICATIONS: Reviewed include insulin. Dose and rest of medications reviewed. ALLERGIES: Formaldehyde. Rest of allergies noted. FAMILY HISTORY: History of diabetes mellitus, ETOH. SOCIAL HISTORY: No history of smoking, or alcohol. REVIEW OF SYSTEMS: Could not be taken because of the patient's change in mental status. PHYSICAL EXAMINATION: VITAL SIGNS: Pulse 104, blood pressure 119/46, respirations 32. HEENT: Conjunctivae normal. NECK: No JVD. CARDIOVASCULAR: S1, S2 muffled. RESPIRATIONS: Breath sounds diminished at the bases. A few scattered rhonchi and crackles. ABDOMEN: Soft, obese, nontender. LEGS: Bilateral leg edema. NERVOUS SYSTEM: Could not be examined completely. Diffusely weak. SKIN: As mentioned earlier. JOINTS: No active deforming arthropathy. LABORATORY DATA: WBC 26. The rest of the labs are noted. ASSESSMENT: 1. Acute diabetic ketoacidosis, uncontrolled diabetes mellitus type 2. 2. Change in mental status, metabolic encephalopathy. 3. Elevated WBC, possible sepsis with urinary tract infection, present on admission. 4. History of congestive heart failure. 5. Hypertension. 6. History of degenerative joint disease. 7. History of gout. 8. History of cholecystectomy. 9. History of anxiety, depression, panic disorder. RECOMMENDATIONS AND DISCUSSION: This is a 73-year-old woman who presented with multiple complex medical issues, we will monitor the patient closely. We will initiate broad-spectrum IV antibiotics. Obtain cultures. Infectious disease evaluation. Otherwise, the patient will be monitored in ICU. Management with Dr. Russell. Sugars, DKA protocol. Insulin drip will be initiated. The patient has also received some bicarb. Prognosis guarded because of multiple complex medical issues. Further recommendations to follow. See orders for further details. MMODL / IJN: [id number] /
[2023-11-18] MEDS: POTASSIUM CHLORIDE 20 MEQ in WATER FOR INJECTION 1 100ML.BAG IVPB SCH (00:01)
[2023-11-18 00:51] LABS: Glucose,Whole Blood 103 mg/dL (70-110)
[2023-11-18 01:09] LABS: Glucose,Whole Blood 110 mg/dL (70-110)
[2023-11-18 01:48] LABS: Glucose,Whole Blood 113 mg/dL (70-110)
[2023-11-18 02:02] LABS: African American GFR (CKD) 40 (>60 ml/min/1.73 sqM); Anion Gap 7 mmol/L; Blood Urea Nitrogen 44 mg/dL (7-17); Calcium 8.8 mg/dL (8.4-10.2); Carbon Dioxide 18 mmol/L (22-30); Chloride 116 mmol/L (98-107); Glucose 112 mg/dL (74-99); Non-African American GFR(CKD) 35 (>60 ml/min/1.73 sqM); Phosphorus 2.6 mg/dL (2.5-4.5); Potassium 4.2 mmol/L (3.5-5.1); Sodium 141 mmol/L (137-145)
[2023-11-18 02:42] LABS: Glucose,Whole Blood 109 mg/dL (70-110)
[2023-11-18] MEDS: INSULIN DETEMIR (LEVEMIR) 100 UNIT/ML SYR SQ ONE (03:20)
[2023-11-18 03:37] LABS: Glucose,Whole Blood 116 mg/dL (70-110)
[2023-11-18 06:22] LABS: Basophils % (A) 0 %; Eosinophils % (A) 0 %; HCT 35.6 % (34.0-46.0); HGB 11.7 gm/dL (11.4-16.0); Lymphocytes % (A) 4 %; MCH 31.2 pg (25.0-35.0); MCHC 32.9 g/dL (31.0-37.0); Mean Platelet Volume 9.2; Monocytes # (A) 1.4 k/uL (0-1.0); Monocytes % (A) 6 %; Neutrophils # (A) 20.4 k/uL (1.3-7.7); Neutrophils % (A) 89 %; Platelet Count 177 k/uL (150-450); RBC 3.76 m/uL (3.80-5.40); RDW 13.5 % (11.5-15.5)
[2023-11-18 06:28] LABS: MCV 94.7 fL (80.0-100.0)
[2023-11-18] MEDS ORDERED: Magnesium Replacement Protocol 1 EACH MISC MISCELLANE PRN (06:35)
[2023-11-18 06:36] LABS: ALT 13 U/L (4-34); AST 23 U/L (14-36); African American GFR (CKD) 43 (>60 ml/min/1.73 sqM); Alkaline Phosphatase 122 U/L (38-126); Anion Gap 10 mmol/L; Blood Urea Nitrogen 40 mg/dL (7-17); Calcium 8.6 mg/dL (8.4-10.2); Carbon Dioxide 13 mmol/L (22-30); Chloride 115 mmol/L (98-107); Glucose 250 mg/dL (74-99); Non-African American GFR(CKD) 37 (>60 ml/min/1.73 sqM); Potassium 4.8 mmol/L (3.5-5.1); Sodium 138 mmol/L (137-145); Total Bilirubin 0.6 mg/dL (0.2-1.3); Total Protein 5.6 g/dL (6.3-8.2)
[2023-11-18] MEDS: LEVOTHYROXINE 125 MCG TAB PO SCH (06:45)
[2023-11-18] MEDS: MAGNESIUM SULFATE-D5W PMX 1 GM in DEXTROSE/WATER 1 100ML.BAG IVPB ONE (06:46)
--- NOTE | 2023-11-18 06:55 | P.CONS ---
History of Present Illness - Reason for Consult Consult date: 11/17/23 Sepsis Requesting physician: Tressa Munroe - Chief Complaint Weakness and confusion X 1 day - History of Present Illness Patient is a 73-year-old female past medical history of significant for diabetes mellitus hypertension osteoarthritis heart failure, patient was brought into the hospital for evaluation of confusion, patient was noted to be confused at home with a dried vomit and per daughter symptom has been similar to her previous episode of DKA with the symptoms the patient has been brought into the hospital patient was afebrile tachycardic mildly hypertensive but not hypoxic or need for supplemental oxygen patient did have a white count of 26,000 with a left shift BUN/creatinine has been mildly elevated lactic acid was elevated liver enzymes normal urine is positive acetone was positive influenza RSV COVID testing was negative patient did have a chest x-ray no acute cardiopulmonary disease process COPD changes patient has been admitted to ICU b ecause of DKA concerning for UTI has been started on Zosyn infectious disease was consulted for further management of antibiotic therapy, most information has been obtained from the chart talking to the daughter at the bedside as the patient was noted to be a good historian besides nausea and vomiting confusion no clear history of any headache of breath or cough no abdominal pain or diarrhea has been reported Review of Systems Positive points has been mentioned in HPI complete review could not be obtained because of his underlying mental status Past Medical History Past Medical History: Heart Failure, Diabetes Mellitus, GI Bleed, Hypertension, Osteoarthritis (OA), Thyroid Disorder Additional Past Medical History / Comment(s): IDDM type I per pt, peripheral neuropathy bilateral hands and feet, arthritis bilateral hands, occasional low back pain, gout L great toe, hypothyroid, L great toe callus, lower GI bleed, diverticulosis, RLS. hep C History of Any Multi-Drug Resistant Organisms: None Reported Past Surgical History: Cholecystectomy, Hernia Repair, Joint Replacement Additional Past Surgical History / Comment(s): Umbilical hernia repair, kidney stone basketing and lithotripsy, total L knee arthroplasty, colonoscopy. Past Anesthesia/Blood Transfusion Reactions: Postoperative Nausea & Vomiting (PONV) Additional Past Anesthesia/Blood Transfusion Reaction / Comm: Ponv x1. Past Psychological History: Anxiety, Depression, Panic Disorder Smoking Status: Never smoker Past Alcohol Use History: Rare Past Drug Use History: None Reported - Past Family History Father History Unknown: Yes Family Medical History: Diabetes Mellitus Additional Family Medical History / Comment(s): etoh Mother Family Medical History: Liver Disease Additional Family Medical History / Comment(s): etoh Brother(s) Additional Family Medical History / Comment(s): depression, etoh Medications and Allergies Home Medications Medication Instructions Recorded Confirmed Type Insulin Glargine,Hum.rec.anlog 45 units SQ DAILY 12/30/18 11/17/23 History [Toumaxo Solostar] FLUoxetine HCL [Sarafem] 20 mg PO DAILY 11/17/23 11/17/23 History FLUoxetine HCL [Sarafem] 60 mg PO DAILY 11/17/23 11/17/23 History Levothyroxine Sodium [Synthroid] 125 mcg PO DAILY 11/17/23 11/17/23 History Ciprofloxacin HCl [Cipro] 500 mg PO BID 7 Days #14 tab 11/20/23 Rx INSULIN LISPRO (HumaLOG) [humaLOG] 0 unit SQ ACHS #10 ml 11/20/23 Rx Pantoprazole [Protonix] 40 mg PO DAILY #30 tab 11/20/23 Rx Allergies Allergy/AdvReac Type Severity Reaction Status Date / Time formaldehyde Allergy Itching Verified 11/17/23 10:42 nickel Allergy Itching Verified 11/17/23 10:42 quaternium Allergy Itching Verified 11/17/23 10:42 Sulfa (Sulfonamide Allergy Itching Verified 11/17/23 10:42 Antibiotics) Physical Exam Vitals: Vital Signs Temp Pulse Resp BP Pulse Ox 11/17/23 13:00 95 27 H 93/57 100 11/17/23 12:00 98 16 108/54 100 11/17/23 11:45 96.9 F L 104 H 32 H 119/46 100 11/17/23 11:30 106/73 11/17/23 11:00 99 24 102/53 100 11/17/23 10:30 92 28 H 110/76 100 11/17/23 10:00 96 28 H 111/49 100 11/17/23 09:30 105 H 25 H 117/65 100 11/17/23 09:27 105 H 26 H 117/65 100 11/17/23 08:56 97.5 F L 65 32 H 124/88 90 L Intake and Output 11/16/23 11/17/23 11/17/23 22:59 06:59 14:59 Intake Total 600 Output Total 350 Balance 250 Intake: IV 600 Sodium Chloride 0.9% 1, 600 000 ml @ 200 mls/hr IV . Q5H [facility] Rx#:[id number] Output: Urine 350 Other: Voiding Method Indwelling Catheter Weight 136.078 kg GENERAL DESCRIPTION: Elderly female lying in bed, no distress. No tachypnea or accessory muscle of respiration use. HEENT: Shows Pallor , no scleral icterus. Oral mucous membrane is dry. No pharyngeal erythema or thrush NECK: Trachea central, no thyromegaly. LUNGS: Unlabored breathing. Clear to auscultation anteriorly. No wheeze or crackle. HEART: S1, S2, regular rate and rhythm. No loud murmur ABDOMEN: Soft, no tenderness , guarding or rigidity, no organomegaly EXTREMITIES: No edema of feet. SKIN: No rash, no masses palpable. NEUROLOGICAL: The patient is lethargic but arousable orientation could not determine Results CBC & Chem 7: 11/20/23 04:21 11/20/23 04:21 Labs: Abnormal Lab Results - Last 24 Hours (Table) 11/17/23 11/17/23 11/17/23 Range/Units 08:50 09:07 09:07 WBC 26.0 H (3.8-10.6) k/uL Hct 48.1 H (34.0-46.0) % MCV 114.4 H (80.0-100.0) fL MCHC 28.0 L (31.0-37.0) g/dL Neutrophils # (Manual) 23.10 H (1.3-7.7) k/uL Lymphocytes # (Manual) 0.78 L (1.0-4.8) k/uL Monocytes # (Manual) 1.82 H (0-1.0) k/uL Metamyelocytes # (Man) 0.26 H (0) k/uL Myelocytes # (Manual) 0.52 H (0) k/uL Macrocytosis Marked A APTT 19.2 L (22.0-30.0) sec VBG pH (7.31-7.41) VBG pCO2 (37-51) mmHg VBG HCO3 (24-28) mmol/L Sodium (137-145) mmol/L Potassium (3.5-5.1) mmol/L Chloride (98-107) mmol/L Carbon Dioxide (22-30) mmol/L BUN (7-17) mg/dL Creatinine (0.52-1.04) mg/dL Glucose (74-99) mg/dL POC Glucose (mg/dL) >600 H* (70-110) mg/dL Plasma Lactic Acid Guicho (0.7-2.0) mmol/L Alkaline Phosphatase (38-126) U/L Urine Appearance (Clear) Urine Protein (Negative) Urine Glucose (UA) (Negative) Urine Ketones (Negative) Urine Blood (Negative) Ur Leukocyte Esterase (Negative) Urine WBC (0-5) /hpf Urine WBC Clumps (None) /hpf Amorphous Sediment (None) /hpf Urine Bacteria (None) /hpf Hyaline Casts (0-2) /lpf Urine Mucus (None) /hpf 11/17/23 11/17/23 11/17/23 Range/Units 09:07 09:07 09:07 WBC (3.8-10.6) k/uL Hct (34.0-46.0) % MCV (80.0-100.0) fL MCHC (31.0-37.0) g/dL Neutrophils # (Manual) (1.3-7.7) k/uL Lymphocytes # (Manual) (1.0-4.8) k/uL Monocytes # (Manual) (0-1.0) k/uL Metamyelocytes # (Man) (0) k/uL Myelocytes # (Manual) (0) k/uL Macrocytosis APTT (22.0-30.0) sec VBG pH (7.31-7.41) VBG pCO2 (37-51) mmHg VBG HCO3 (24-28) mmol/L Sodium 129 L (137-145) mmol/L Potassium 6.5 H* (3.5-5.1) mmol/L Chloride 93 L (98-107) mmol/L Carbon Dioxide <5 L* (22-30) mmol/L BUN 41 H (7-17) mg/dL Creatinine 1.97 H (0.52-1.04) mg/dL Glucose 1219 H* (74-99) mg/dL POC Glucose (mg/dL) (70-110) mg/dL Plasma Lactic Acid Guicho 6.7 H* (0.7-2.0) mmol/L Alkaline Phosphatase 168 H (38-126) U/L Urine Appearance Cloudy H (Clear) Urine Protein Trace H (Negative) Urine Glucose (UA) 4+ H (Negative) Urine Ketones 2+ H (Negative) Urine Blood Trace H (Negative) Ur Leukocyte Esterase Moderate H (Negative) Urine WBC 22 H (0-5) /hpf Urine WBC Clumps Few H (None) /hpf Amorphous Sediment Occasional H (None) /hpf Urine Bacteria Occasional H (None) /hpf Hyaline Casts 15 H (0-2) /lpf Urine Mucus Rare H (None) /hpf 11/17/23 11/17/23 11/17/23 Range/Units 09:07 11:29 12:33 WBC (3.8-10.6) k/uL Hct (34.0-46.0) % MCV (80.0-100.0) fL MCHC (31.0-37.0) g/dL Neutrophils # (Manual) (1.3-7.7) k/uL Lymphocytes # (Manual) (1.0-4.8) k/uL Monocytes # (Manual) (0-1.0) k/uL Metamyelocytes # (Man) (0) k/uL Myelocytes # (Manual) (0) k/uL Macrocytosis APTT (22.0-30.0) sec VBG pH 6.86 L* (7.31-7.41) VBG pCO2 30 L (37-51) mmHg VBG HCO3 5 L* (24-28) mmol/L Sodium (137-145) mmol/L Potassium (3.5-5.1) mmol/L Chloride (98-107) mmol/L Carbon Dioxide (22-30) mmol/L BUN (7-17) mg/dL Creatinine (0.52-1.04) mg/dL Glucose (74-99) mg/dL POC Glucose (mg/dL) >600 H* >600 H* (70-110) mg/dL Plasma Lactic Acid Guicho (0.7-2.0) mmol/L Alkaline Phosphatase (38-126) U/L Urine Appearance (Clear) Urine Protein (Negative) Urine Glucose (UA) (Negative) Urine Ketones (Negative) Urine Blood (Negative) Ur Leukocyte Esterase (Negative) Urine WBC (0-5) /hpf Urine WBC Clumps (None) /hpf Amorphous Sediment (None) /hpf Urine Bacteria (None) /hpf Hyaline Casts (0-2) /lpf Urine Mucus (None) /hpf 11/17/23 Range/Units 13:31 WBC (3.8-10.6) k/uL Hct (34.0-46.0) % MCV (80.0-100.0) fL MCHC (31.0-37.0) g/dL Neutrophils # (Manual) (1.3-7.7) k/uL Lymphocytes # (Manual) (1.0-4.8) k/uL Monocytes # (Manual) (0-1.0) k/uL Metamyelocytes # (Man) (0) k/uL Myelocytes # (Manual) (0) k/uL Macrocytosis APTT (22.0-30.0) sec VBG pH (7.31-7.41) VBG pCO2 (37-51) mmHg VBG HCO3 (24-28) mmol/L Sodium (137-145) mmol/L Potassium (3.5-5.1) mmol/L Chloride (98-107) mmol/L Carbon Dioxide (22-30) mmol/L BUN (7-17) mg/dL Creatinine (0.52-1.04) mg/dL Glucose (74-99) mg/dL POC Glucose (mg/dL) >600 H* (70-110) mg/dL Plasma Lactic Acid Guicho (0.7-2.0) mmol/L Alkaline Phosphatase (38-126) U/L Urine Appearance (Clear) Urine Protein (Negative) Urine Glucose (UA) (Negative) Urine Ketones (Negative) Urine Blood (Negative) Ur Leukocyte Esterase (Negative) Urine WBC (0-5) /hpf Urine WBC Clumps (None) /hpf Amorphous Sediment (None) /hpf Urine Bacteria (None) /hpf Hyaline Casts (0-2) /lpf Urine Mucus (None) /hpf Assessment and Plan (1) Sepsis Status: Acute Code(s): A41.9 - SEPSIS, UNSPECIFIED ORGANISM SNOMED Code(s): 36563343 (2) UTI (urinary tract infection) Status: Acute Code(s): N39.0 - URINARY TRACT INFECTION, SITE NOT SPECIFIED SNOMED Code(s): 81648635 Plan: 1patient with a sepsis in this patient who did have features of cirrhosis with elevated white count tachycardia and elevated lactic acid source is likely UTI as chest x-ray was negative abdominal was soft on repeat examination no evidence of any cellulitis or joint swelling 2-patient to continue with the Zosyn while waiting for the culture to finalize Daughter at the bedside questions were answered We will follow on clinical condition and cultures to further adjust medication if needed Thank you for this consultation we will follow the patient along with you Dictation was produced using [employer] dictation software. please excuse any grammatical, word or spelling errors. Time with Patient: Greater than 30
[2023-11-18 06:56] LABS: Glucose,Whole Blood 316 mg/dL (70-110)
[2023-11-18] MEDS: INSULIN ASPART (NovoLOG) 100 UNIT/ML VIAL SQ SCH (06:57)
--- NOTE | 2023-11-18 08:00 | XR ---
EXAMINATION TYPE: XR chest 1V portable DATE OF EXAM: 11/18/2023 Comparison: 11/17/2023 Clinical History: 73-year-old female CHF Findings: Dextroconvex scoliosis. Heart upper limits of normal in size. Left subclavian CVC tip upper right atr ium. Patchy bilateral interstitial opacities, left greater than right persist. No sizable pleural eff usion on the frontal view. Impression: Similar patchy bilateral interstitial opacities.
[2023-11-18] MEDS: FLUoxetine HCL 20 MG CAP PO SCH ×2 (08:50)
[2023-11-18 10:48] VITALS: BMI 35.7
[2023-11-18 11:49] LABS: Glucose,Whole Blood 209 mg/dL (70-110)
--- NOTE | 2023-11-18 12:15 | P.PN ---
Subjective Progress Note Date: 11/18/23 Principal diagnosis: Acute diabetic ketoacidosis This is a 73-year-old female patient who is coming in today to emergency department with lethargy and weakness and tachypnea the patient was found to have elevated blood sugars and subsequently patient was diagnosed having DKA. The patient has type 1 diabetes mellitus. The daughter is a nurse and she does question her compliancy today insulin intake. Obviously, the patient is currently lethargic and sleepy and altered mentally related to her severe metabolic derangements related to DKA. No fever. Labs were noted and the patient has a white cell count of 26, hemoglobin 15.5 and a platelet count of 292. Venous pH was 6.8. Sodium is at 129, potassium is at 6.5, serum bicarb is less than 5, BUN is 41 with a creatinine 1.9. Glucose was 1219. Left hemoglobin 6.7. UA showing 22 WBCs, 2 RBCs, +4 glucose and +2 ketones and serum acetone is positive. The viral screen is negative. Chest x-ray is clear. Patient was given aggressive IV fluid resuscitation. Subsequently, the patient was transferred to the intensive care unit. Due to lack of IV access, triple- lumen catheter was inserted. She is currently on insulin drip which is running at 15 units an hour. She is also on normal saline at rate of 200 cc an hour. She was given IV bicarb in the emergency department. She is currently on 5 L of oxygen by nasal cannula. No reported aspiration. Reevaluated today on 11/18/2023, patient remains in the ICU, her anion gap has closed, patient is now on Levemir insulin and NovoLog insulin, and does not seem to be in any distress. Continues to have leukocytosis with WBC count of 23.0 hemoglobin 11.7 basic metabolic profile is normal bicarb remains low at 13 BUN 4 0 creatinine 1.39 chest x-ray is suggestive of possible left lower lobe pneumonia, patchy interstitial infiltrates persist mostly in the left lower lobe and left midlung, patient is receiving Zosyn empirically. In spite of her abnormal chest x-ray, patient is on room air, and she denies any pulmonary symptoms Objective - Vital Signs Vital signs: Vital Signs Temp 99.4 F 11/18/23 08:00 Pulse 84 11/18/23 09:00 Resp 16 11/18/23 09:00 BP 132/62 11/18/23 09:00 Pulse Ox 96 11/18/23 09:00 FiO2 Intake & Output 11/17/23 11/18/23 11/18/23 18:59 06:59 18:59 Intake Total 9025.152 3605.877 130 Output Total 500 380 Balance 0611.986 2738.877 130 Weight 136.078 kg 119.5 kg 119.5 kg Intake: IV 1600 2320 130 0.9 @ 20 KVO 20 80 D5-0.45% NaCl with KCl 1050 20Meq/l 1,000 ml @ 150 mls/hr IV .Q6H40M [facility] Rx# :[id number] Piperacillin-Tazobactam 3 250 50 .375 gm In Sodium Chloride 0.9% 100 ml @ 25 mls/hr IVPB Q8H [facility] Rx#: [id number] Potassium Chloride 20 meq 300 In Water For Injection 1 100ml.bag @ 50 mls/hr IVPB [facility] Rx#: [id number] Potassium Phosphate 10 300 mmol In Sodium Chloride 0 .9% 100 ml @ 50 mls/hr IV Q2H [facility] Rx#:[id number] Sodium Chloride 0.9% 1, 1600 400 000 ml @ 200 mls/hr IV . Q5H [facility] Rx#:[id number] Intake, IV Titration 79.257 209.877 Amount Insulin Regular 100 unit 79.257 109.877 In Sodium Chloride 0.9% 100 ml @ 0.1 UNITS/KG/HR 13.744 mls/hr IV .Q7H21M [facility] Rx#:[id number] Magnesium Sulfate-D5w Pmx 100 1 gm In Dextrose/Water 1 100ml.bag @ 100 mls/hr IVPB ONCE ONE Rx#: [id number] Output: Urine 500 380 Other: Voiding Method Indwelling Catheter Indwelling Catheter Indwelling Catheter - Exam General: 73-year-old female in no distress Skin: Skin is warm and dry and no rashes or lesions are noted. Eye: Pupils are equal, round and reactive to light, extra-ocular movements are intact; there is normal conjunctiva bilaterally. Ears, nose, mouth and throat: There are moist mucous membranes and no oral lesions. Neck: The neck is supple, there is no tenderness or JVD. Cardiovascular: There is a regular rate and rhythm. No murmur, rub or gallop is appreciated. Respiratory: Clear bilaterally no crackles rhonchi or wheezes Gastrointestinal: Soft, non-distended, non-tender abdomen without masses or organomegaly noted. There is no rebound or guarding present. Bowel sounds are unremarkable. Musculoskeletal: Normal ROM, no tenderness, There is no pedal edema. There is no calf tenderness or swelling. No cords were appreciated. Neurological: CN II-XII intact, Cranial nerves III through XII are intact. There are no obvious motor or sensory deficits. Coordination appears grossly intact. Speech is normal. Psychiatric: Cooperative, appropriate mood & affect, normal judgment. - Labs CBC & Chem 7: 11/18/23 05:52 11/18/23 05:52 Labs: Abnormal Lab Results - Last 24 Hours (Table) 11/17/23 11/17/23 11/17/23 Range/Units 12:33 13:31 13:56 WBC (3.8-10.6) k/uL RBC (3.80-5.40) m/uL Neutrophils # (1.3-7.7) k/uL Monocytes # (0-1.0) k/uL Sodium 136 L (137-145) mmol/L Potassium (3.5-5.1) mmol/L Chloride (98-107) mmol/L Carbon Dioxide 6 L* (22-30) mmol/L BUN 42 H (7-17) mg/dL Creatinine 1.75 H (0.52-1.04) mg/dL Glucose 735 H* (74-99) mg/dL POC Glucose (mg/dL) >600 H* >600 H* (70-110) mg/dL Plasma Lactic Acid Guicho (0.7-2.0) mmol/L Calcium 8.2 L (8.4-10.2) mg/dL Phosphorus (2.5-4.5) mg/dL Total Protein (6.3-8.2) g/dL Albumin (3.5-5.0) g/dL Amylase (30-110) U/L Lipase (23-300) U/L 11/17/23 11/17/23 11/17/23 Range/Units 13:56 13:56 14:26 WBC (3.8-10.6) k/uL RBC (3.80-5.40) m/uL Neutrophils # (1.3-7.7) k/uL Monocytes # (0-1.0) k/uL Sodium (137-145) mmol/L Potassium (3.5-5.1) mmol/L Chloride (98-107) mmol/L Carbon Dioxide (22-30) mmol/L BUN (7-17) mg/dL Creatinine (0.52-1.04) mg/dL Glucose (74-99) mg/dL POC Glucose (mg/dL) >600 H* (70-110) mg/dL Plasma Lactic Acid Guicho 4.3 H* (0.7-2.0) mmol/L Calcium (8.4-10.2) mg/dL Phosphorus (2.5-4.5) mg/dL Total Protein (6.3-8.2) g/dL Albumin (3.5-5.0) g/dL Amylase 114 H (30-110) U/L Lipase 1221 H (23-300) U/L 11/17/23 11/17/23 11/17/23 Range/Units 15:30 16:35 17:12 WBC (3.8-10.6) k/uL RBC (3.80-5.40) m/uL Neutrophils # (1.3-7.7) k/uL Monocytes # (0-1.0) k/uL Sodium 136 L (137-145) mmol/L Potassium (3.5-5.1) mmol/L Chloride 109 H (98-107) mmol/L Carbon Dioxide 15 L (22-30) mmol/L BUN 45 H (7-17) mg/dL Creatinine 1.73 H (0.52-1.04) mg/dL Glucose 490 H (74-99) mg/dL POC Glucose (mg/dL) >600 H* 551 H* (70-110) mg/dL Plasma Lactic Acid Guicho (0.7-2.0) mmol/L Calcium (8.4-10.2) mg/dL Phosphorus 1.4 L (2.5-4.5) mg/dL Total Protein (6.3-8.2) g/dL Albumin (3.5-5.0) g/dL Amylase (30-110) U/L Lipase (23-300) U/L 05/11/17/23 11/17/23 Range/Units 17:12 17:28 18:28 WBC (3.8-10.6) k/uL RBC (3.80-5.40) m/uL Neutrophils # (1.3-7.7) k/uL Monocytes # (0-1.0) k/uL Sodium (137-145) mmol/L Potassium (3.5-5.1) mmol/L Chloride (98-107) mmol/L Carbon Dioxide (22-30) mmol/L BUN (7-17) mg/dL Creatinine (0.52-1.04) mg/dL Glucose (74-99) mg/dL POC Glucose (mg/dL) 479 H 442 H (70-110) mg/dL Plasma Lactic Acid Guicho 4.3 H* (0.7-2.0) mmol/L Calcium (8.4-10.2) mg/dL Phosphorus (2.5-4.5) mg/dL Total Protein (6.3-8.2) g/dL Albumin (3.5-5.0) g/dL Amylase (30-110) U/L Lipase (23-300) U/L 11/17/23 11/17/23 11/17/23 Range/Units 19:27 20:30 20:57 WBC (3.8-10.6) k/uL RBC (3.80-5.40) m/uL Neutrophils # (1.3-7.7) k/uL Monocytes # (0-1.0) k/uL Sodium (137-145) mmol/L Potassium 3.4 L (3.5-5.1) mmol/L Chloride 113 H (98-107) mmol/L Carbon Dioxide 18 L (22-30) mmol/L BUN 44 H (7-17) mg/dL Creatinine 1.56 H (0.52-1.04) mg/dL Glucose 220 H (74-99) mg/dL POC Glucose (mg/dL) 330 H 223 H (70-110) mg/dL Plasma Lactic Acid Guicho (0.7-2.0) mmol/L Calcium (8.4-10.2) mg/dL Phosphorus (2.5-4.5) mg/dL Total Protein (6.3-8.2) g/dL Albumin (3.5-5.0) g/dL Amylase (30-110) U/L Lipase (23-300) U/L 11/17/23 11/17/23 11/17/23 Range/Units 20:57 21:38 22:32 WBC (3.8-10.6) k/uL RBC (3.80-5.40) m/uL Neutrophils # (1.3-7.7) k/uL Monocytes # (0-1.0) k/uL Sodium (137-145) mmol/L Potassium (3.5-5.1) mmol/L Chloride (98-107) mmol/L Carbon Dioxide (22-30) mmol/L BUN (7-17) mg/dL Creatinine (0.52-1.04) mg/dL Glucose (74-99) mg/dL POC Glucose (mg/dL) 192 H 171 H (70-110) mg/dL Plasma Lactic Acid Guicho 3.1 H* (0.7-2.0) mmol/L Calcium (8.4-10.2) mg/dL Phosphorus (2.5-4.5) mg/dL Total Protein (6.3-8.2) g/dL Albumin (3.5-5.0) g/dL Amylase (30-110) U/L Lipase (23-300) U/L 11/17/23 11/18/23 11/18/23 Range/Units 23:31 01:05 01:45 WBC (3.8-10.6) k/uL RBC (3.80-5.40) m/uL Neutrophils # (1.3-7.7) k/uL Monocytes # (0-1.0) k/uL Sodium (137-145) mmol/L Potassium (3.5-5.1) mmol/L Chloride 116 H (98-107) mmol/L Carbon Dioxide 18 L (22-30) mmol/L BUN 44 H (7-17) mg/dL Creatinine 1.46 H (0.52-1.04) mg/dL Glucose 112 H (74-99) mg/dL POC Glucose (mg/dL) 146 H 113 H (70-110) mg/dL Plasma Lactic Acid Guicho (0.7-2.0) mmol/L Calcium (8.4-10.2) mg/dL Phosphorus (2.5-4.5) mg/dL Total Protein (6.3-8.2) g/dL Albumin (3.5-5.0) g/dL Amylase (30-110) U/L Lipase (23-300) U/L 11/18/23 11/18/23 11/18/23 Range/Units 03:36 05:52 05:52 WBC 23.0 H (3.8-10.6) k/uL RBC 3.76 L (3.80-5.40) m/uL Neutrophils # 20.4 H (1.3-7.7) k/uL Monocytes # 1.4 H (0-1.0) k/uL Sodium (137-145) mmol/L Potassium (3.5-5.1) mmol/L Chloride 115 H (98-107) mmol/L Carbon Dioxide 13 L (22-30) mmol/L BUN 40 H (7-17) mg/dL Creatinine 1.39 H (0.52-1.04) mg/dL Glucose 250 H (74-99) mg/dL POC Glucose (mg/dL) 116 H (70-110) mg/dL Plasma Lactic Acid Guicho (0.7-2.0) mmol/L Calcium (8.4-10.2) mg/dL Phosphorus (2.5-4.5) mg/dL Total Protein 5.6 L (6.3-8.2) g/dL Albumin 3.0 L (3.5-5.0) g/dL Amylase (30-110) U/L Lipase (23-300) U/L 11/18/23 11/18/23 Range/Units 06:54 11:48 WBC (3.8-10.6) k/uL RBC (3.80-5.40) m/uL Neutrophils # (1.3-7.7) k/uL Monocytes # (0-1.0) k/uL Sodium (137-145) mmol/L Potassium (3.5-5.1) mmol/L Chloride (98-107) mmol/L Carbon Dioxide (22-30) mmol/L BUN (7-17) mg/dL Creatinine (0.52-1.04) mg/dL Glucose (74-99) mg/dL POC Glucose (mg/dL) 316 H 209 H (70-110) mg/dL Plasma Lactic Acid Guicho (0.7-2.0) mmol/L Calcium (8.4-10.2) mg/dL Phosphorus (2.5-4.5) mg/dL Total Protein (6.3-8.2) g/dL Albumin (3.5-5.0) g/dL Amylase (30-110) U/L Lipase (23-300) U/L Assessment and Plan Assessment: Impression: Acute diabetic ketoacidosis Acute dehydration/severe on presentation Acute leukocytosis Suspect left lower lobe pneumonia, likely community-acquired or could even be related to aspiration Acute kidney injury secondary to above Acute anion gap metabolic acidosis secondary to DKA Diabetic peripheral neuropathy Benign essential hypertension History of nephrolithiasis Recommendation: Continue present supportive care measures Continue IV fluids Transition to Levemir insulin and subcu insulin as per scale Continue GI and DVT prophylaxis Continue Zosyn Continue to monitor electrolytes and renal profile on a daily basis Transfer out of the ICU to a regular medical floor Will continue to follow Time with Patient: Less than 30
[2023-11-18 14:47] LABS: Glucose,Whole Blood 212 mg/dL (70-110)
[2023-11-18] MEDS: INSULIN DETEMIR (LEVEMIR) 100 UNIT/ML SYR SQ SCH (14:48)
--- NOTE | 2023-11-18 15:24 | P.PN ---
Subjective Progress Note Date: 11/18/23 Principal diagnosis: Reason for follow-up is leukocytosis and UTI Patient is a 73-year-old female past medical history of significant for diabetes mellitus hypertension osteoarthritis heart failure, patient was brought into the hospital for evaluation of confusion, patient noted to be in DKA did have elevated white count positive UA concerning for UTI. On today's evaluation that is 11/18/2023, patient is more awake alert today, patient has been afebrile, patient is breathing comfortably and is currently on room air, patient denies having any significant cough no chest pain shortness of breath, patient denies nausea vomiting or diarrhea and no abdominal pain. Patient white count is down to 23,000 creatinine is 1.39 cultures currently pending Objective - Vital Signs Vital signs: Vital Signs Temp 99.4 F 11/18/23 08:00 Pulse 84 11/18/23 09:00 Resp 16 11/18/23 09:00 BP 132/62 11/18/23 09:00 Pulse Ox 96 11/18/23 09:00 FiO2 Intake & Output 11/17/23 11/18/23 11/18/23 18:59 06:59 18:59 Intake Total 4492.928 9444.877 130 Output Total 500 380 Balance 7349.874 2020.877 130 Weight 136.078 kg 119.5 kg 119.5 kg Intake: IV 1600 2320 130 0.9 @ 20 KVO 20 80 D5-0.45% NaCl with KCl 1050 20Meq/l 1,000 ml @ 150 mls/hr IV .Q6H40M [facility] Rx# :[id number] Piperacillin-Tazobactam 3 250 50 .375 gm In Sodium Chloride 0.9% 100 ml @ 25 mls/hr IVPB Q8H [facility] Rx#: [id number] Potassium Chloride 20 meq 300 In Water For Injection 1 100ml.bag @ 50 mls/hr IVPB ONCE STA Rx#: [id number] Potassium Phosphate 10 300 mmol In Sodium Chloride 0 .9% 100 ml @ 50 mls/hr IV Q2H [facility] Rx#:[id number] Sodium Chloride 0.9% 1, 1600 400 000 ml @ 200 mls/hr IV . Q5H [facility] Rx#:[id number] Intake, IV Titration 79.257 209.877 Amount Insulin Regular 100 unit 79.257 109.877 In Sodium Chloride 0.9% 100 ml @ 0.1 UNITS/KG/HR 13.744 mls/hr IV .Q7H21M [facility] Rx#:[id number] Magnesium Sulfate-D5w Pmx 100 1 gm In Dextrose/Water 1 100ml.bag @ 100 mls/hr IVPB ONCE ONE Rx#: [id number] Output: Urine 500 380 Other: Voiding Method Indwelling Catheter Indwelling Catheter Indwelling Catheter - Exam GENERAL DESCRIPTION: An elderly female lying in bed in no distress RESPIRATORY SYSTEM: Unlabored breathing , decreased breath sounds at bases HEART: S1 S2 regular rate and rhythm , ABDOMEN: Soft , no tenderness EXTREMITIES: No edema feet - Labs CBC & Chem 7: 11/20/23 04:21 11/20/23 04:21 Labs: Abnormal Lab Results - Last 24 Hours (Table) 11/17/23 11/17/23 11/17/23 Range/Units 13:31 13:56 13:56 WBC (3.8-10.6) k/uL RBC (3.80-5.40) m/uL Neutrophils # (1.3-7.7) k/uL Monocytes # (0-1.0) k/uL Sodium 136 L (137-145) mmol/L Potassium (3.5-5.1) mmol/L Chloride (98-107) mmol/L Carbon Dioxide 6 L* (22-30) mmol/L BUN 42 H (7-17) mg/dL Creatinine 1.75 H (0.52-1.04) mg/dL Glucose 735 H* (74-99) mg/dL POC Glucose (mg/dL) >600 H* (70-110) mg/dL Plasma Lactic Acid Guicho 4.3 H* (0.7-2.0) mmol/L Calcium 8.2 L (8.4-10.2) mg/dL Phosphorus (2.5-4.5) mg/dL Total Protein (6.3-8.2) g/dL Albumin (3.5-5.0) g/dL Amylase (30-110) U/L Lipase (23-300) U/L 11/17/23 11/17/23 11/17/23 Range/Units 13:56 14:26 15:30 WBC (3.8-10.6) k/uL RBC (3.80-5.40) m/uL Neutrophils # (1.3-7.7) k/uL Monocytes # (0-1.0) k/uL Sodium (137-145) mmol/L Potassium (3.5-5.1) mmol/L Chloride (98-107) mmol/L Carbon Dioxide (22-30) mmol/L BUN (7-17) mg/dL Creatinine (0.52-1.04) mg/dL Glucose (74-99) mg/dL POC Glucose (mg/dL) >600 H* >600 H* (70-110) mg/dL Plasma Lactic Acid Guicho (0.7-2.0) mmol/L Calcium (8.4-10.2) mg/dL Phosphorus (2.5-4.5) mg/dL Total Protein (6.3-8.2) g/dL Albumin (3.5-5.0) g/dL Amylase 114 H (30-110) U/L Lipase 1221 H (23-300) U/L 11/17/23 11/17/23 11/17/23 Range/Units 16:35 17:12 17:12 WBC (3.8-10.6) k/uL RBC (3.80-5.40) m/uL Neutrophils # (1.3-7.7) k/uL Monocytes # (0-1.0) k/uL Sodium 136 L (137-145) mmol/L Potassium (3.5-5.1) mmol/L Chloride 109 H (98-107) mmol/L Carbon Dioxide 15 L (22-30) mmol/L BUN 45 H (7-17) mg/dL Creatinine 1.73 H (0.52-1.04) mg/dL Glucose 490 H (74-99) mg/dL POC Glucose (mg/dL) 551 H* (70-110) mg/dL Plasma Lactic Acid Guicho 4.3 H* (0.7-2.0) mmol/L Calcium (8.4-10.2) mg/dL Phosphorus 1.4 L (2.5-4.5) mg/dL Total Protein (6.3-8.2) g/dL Albumin (3.5-5.0) g/dL Amylase (30-110) U/L Lipase (23-300) U/L 11/17/23 11/17/23 11/17/23 Range/Units 17:28 18:28 19:27 WBC (3.8-10.6) k/uL RBC (3.80-5.40) m/uL Neutrophils # (1.3-7.7) k/uL Monocytes # (0-1.0) k/uL Sodium (137-145) mmol/L Potassium (3.5-5.1) mmol/L Chloride (98-107) mmol/L Carbon Dioxide (22-30) mmol/L BUN (7-17) mg/dL Creatinine (0.52-1.04) mg/dL Glucose (74-99) mg/dL POC Glucose (mg/dL) 479 H 442 H 330 H (70-110) mg/dL Plasma Lactic Acid Guicho (0.7-2.0) mmol/L Calcium (8.4-10.2) mg/dL Phosphorus (2.5-4.5) mg/dL Total Protein (6.3-8.2) g/dL Albumin (3.5-5.0) g/dL Amylase (30-110) U/L Lipase (23-300) U/L 11/17/23 11/17/23 11/17/23 Range/Units 20:30 20:57 20:57 WBC (3.8-10.6) k/uL RBC (3.80-5.40) m/uL Neutrophils # (1.3-7.7) k/uL Monocytes # (0-1.0) k/uL Sodium (137-145) mmol/L Potassium 3.4 L (3.5-5.1) mmol/L Chloride 113 H (98-107) mmol/L Carbon Dioxide 18 L (22-30) mmol/L BUN 44 H (7-17) mg/dL Creatinine 1.56 H (0.52-1.04) mg/dL Glucose 220 H (74-99) mg/dL POC Glucose (mg/dL) 223 H (70-110) mg/dL Plasma Lactic Acid Guicho 3.1 H* (0.7-2.0) mmol/L Calcium (8.4-10.2) mg/dL Phosphorus (2.5-4.5) mg/dL Total Protein (6.3-8.2) g/dL Albumin (3.5-5.0) g/dL Amylase (30-110) U/L Lipase (23-300) U/L 11/17/23 11/17/23 11/17/23 Range/Units 21:38 22:32 23:31 WBC (3.8-10.6) k/uL RBC (3.80-5.40) m/uL Neutrophils # (1.3-7.7) k/uL Monocytes # (0-1.0) k/uL Sodium (137-145) mmol/L Potassium (3.5-5.1) mmol/L Chloride (98-107) mmol/L Carbon Dioxide (22-30) mmol/L BUN (7-17) mg/dL Creatinine (0.52-1.04) mg/dL Glucose (74-99) mg/dL POC Glucose (mg/dL) 192 H 171 H 146 H (70-110) mg/dL Plasma Lactic Acid Guicho (0.7-2.0) mmol/L Calcium (8.4-10.2) mg/dL Phosphorus (2.5-4.5) mg/dL Total Protein (6.3-8.2) g/dL Albumin (3.5-5.0) g/dL Amylase (30-110) U/L Lipase (23-300) U/L 11/18/23 11/18/23 11/18/23 Range/Units 01:05 01:45 03:36 WBC (3.8-10.6) k/uL RBC (3.80-5.40) m/uL Neutrophils # (1.3-7.7) k/uL Monocytes # (0-1.0) k/uL Sodium (137-145) mmol/L Potassium (3.5-5.1) mmol/L Chloride 116 H (98-107) mmol/L Carbon Dioxide 18 L (22-30) mmol/L BUN 44 H (7-17) mg/dL Creatinine 1.46 H (0.52-1.04) mg/dL Glucose 112 H (74-99) mg/dL POC Glucose (mg/dL) 113 H 116 H (70-110) mg/dL Plasma Lactic Acid Guicho (0.7-2.0) mmol/L Calcium (8.4-10.2) mg/dL Phosphorus (2.5-4.5) mg/dL Total Protein (6.3-8.2) g/dL Albumin (3.5-5.0) g/dL Amylase (30-110) U/L Lipase (23-300) U/L 11/18/23 11/18/23 11/18/23 Range/Units 05:52 05:52 06:54 WBC 23.0 H (3.8-10.6) k/uL RBC 3.76 L (3.80-5.40) m/uL Neutrophils # 20.4 H (1.3-7.7) k/uL Monocytes # 1.4 H (0-1.0) k/uL Sodium (137-145) mmol/L Potassium (3.5-5.1) mmol/L Chloride 115 H (98-107) mmol/L Carbon Dioxide 13 L (22-30) mmol/L BUN 40 H (7-17) mg/dL Creatinine 1.39 H (0.52-1.04) mg/dL Glucose 250 H (74-99) mg/dL POC Glucose (mg/dL) 316 H (70-110) mg/dL Plasma Lactic Acid Guicho (0.7-2.0) mmol/L Calcium (8.4-10.2) mg/dL Phosphorus (2.5-4.5) mg/dL Total Protein 5.6 L (6.3-8.2) g/dL Albumin 3.0 L (3.5-5.0) g/dL Amylase (30-110) U/L Lipase (23-300) U/L 11/18/23 Range/Units 11:48 WBC (3.8-10.6) k/uL RBC (3.80-5.40) m/uL Neutrophils # (1.3-7.7) k/uL Monocytes # (0-1.0) k/uL Sodium (137-145) mmol/L Potassium (3.5-5.1) mmol/L Chloride (98-107) mmol/L Carbon Dioxide (22-30) mmol/L BUN (7-17) mg/dL Creatinine (0.52-1.04) mg/dL Glucose (74-99) mg/dL POC Glucose (mg/dL) 209 H (70-110) mg/dL Plasma Lactic Acid Guicho (0.7-2.0) mmol/L Calcium (8.4-10.2) mg/dL Phosphorus (2.5-4.5) mg/dL Total Protein (6.3-8.2) g/dL Albumin (3.5-5.0) g/dL Amylase (30-110) U/L Lipase (23-300) U/L Assessment and Plan (1) Leukocytosis Status: Acute Code(s): D72.829 - ELEVATED WHITE BLOOD CELL COUNT, UNSPECIFIED SNOMED Code(s): 337385006 (2) UTI (urinary tract infection) Status: Acute Code(s): N39.0 - URINARY TRACT INFECTION, SITE NOT SPECIFIED SNOMED Code(s): 66689562 Plan: 1patient presented to the hospital with a sepsis in this patient who did have features of cirrhosis with elevated white count tachycardia and elevated lactic acid source is likely UTI as chest x-ray was negative abdominal was soft on repeat examination no evidence of any cellulitis or joint swelling 2-patient to continue with the Zosyn while waiting for the culture to finalize and monitor clinical course closely Dictation was produced using [employer] dictation software. please excuse any grammatical, word or spelling errors. Time with Patient: Less than 30
--- NOTE | 2023-11-18 15:26 | P.PN ---
Subjective Progress Note Date: 11/18/23 11/18/2023 this is a 73-year-old female admitted with acute diabetic ketoacidosis, sepsis. Anion gap closed,10. Transitioned to subcu Levemir and NovoLog sliding scale , blood sugars improving, 1 teens to 250. BUN and creatinine improving, 40/1.39. Bicarb low, 13.Tmax 99.7, WBC trending down, 23. Chest x-ray reporting similar patchy bilateral intestinal opacities. Denies cough or congestion. Denies chest pain, palpitations or shortness of breath. Maintaining O2 sats in the mid 90s on room air. Possible UTI continues on empiric Zosyn. Objective - Vital Signs Vital signs: Vital Signs Temp 99.4 F 11/18/23 08:00 Pulse 84 11/18/23 09:00 Resp 16 11/18/23 09:00 BP 132/62 11/18/23 09:00 Pulse Ox 96 11/18/23 09:00 FiO2 Intake & Output 11/17/23 11/18/23 11/18/23 18:59 06:59 18:59 Intake Total 7393.939 6759.877 150 Output Total 500 380 Balance 3219.723 9139.877 150 Weight 136.078 kg 119.5 kg 119.5 kg Intake: IV 1600 2320 150 0.9 @ 20 KVO 20 100 D5-0.45% NaCl with KCl 1050 20Meq/l 1,000 ml @ 150 mls/hr IV .Q6H40M [facility] Rx# :[id number] Piperacillin-Tazobactam 3 250 50 .375 gm In Sodium Chloride 0.9% 100 ml @ 25 mls/hr IVPB Q8H [facility] Rx#: [id number] Potassium Chloride 20 meq 300 In Water For Injection 1 100ml.bag @ 50 mls/hr IVPB ONCE STA Rx#: [id number] Potassium Phosphate 10 300 mmol In Sodium Chloride 0 .9% 100 ml @ 50 mls/hr IV Q2H [facility] Rx#:[id number] Sodium Chloride 0.9% 1, 1600 400 000 ml @ 200 mls/hr IV . Q5H [facility] Rx#:[id number] Intake, IV Titration 79.257 209.877 Amount Insulin Regular 100 unit 79.257 109.877 In Sodium Chloride 0.9% 100 ml @ 0.1 UNITS/KG/HR 13.744 mls/hr IV .Q7H21M [facility] Rx#:[id number] Magnesium Sulfate-D5w Pmx 100 1 gm In Dextrose/Water 1 100ml.bag @ 100 mls/hr IVPB ONCE ONE Rx#: [id number] Output: Urine 500 380 Other: Voiding Method Indwelling Catheter Indwelling Catheter Indwelling Catheter - Exam PHYSICAL EXAM: VITAL SIGNS: [As above] GENERAL: Alert and oriented x 3, sitting up in bed, no acute distress. HEENT: Atraumatic, normocephalic conjunctivae normal. eyes normal. NECK: Supple, no JVD. CARDIOVASCULAR: S1, S2 regular.. No murmur RESPIRATION: Unlabored, equal air entry, CTA,breath sounds diminished in the bases. ABDOMEN: Soft, nondistended, nontender . No guarding. no masses appreciated. Positive bowel sounds LEGS: No edema. no swelling. NERVOUS SYSTEM: Cranial N 2-12 grossly normal. No focal deficits. Strength and sensation grossly intact.. Skin: Warm and dry, no rash - Labs CBC & Chem 7: 11/18/23 05:52 11/18/23 05:52 Labs: Abnormal Lab Results - Last 24 Hours (Table) 11/17/23 11/17/23 11/17/23 Range/Units 13:56 15:30 16:35 WBC (3.8-10.6) k/uL RBC (3.80-5.40) m/uL Neutrophils # (1.3-7.7) k/uL Monocytes # (0-1.0) k/uL Sodium (137-145) mmol/L Potassium (3.5-5.1) mmol/L Chloride (98-107) mmol/L Carbon Dioxide (22-30) mmol/L BUN (7-17) mg/dL Creatinine (0.52-1.04) mg/dL Glucose (74-99) mg/dL POC Glucose (mg/dL) >600 H* 551 H* (70-110) mg/dL Plasma Lactic Acid Guicho (0.7-2.0) mmol/L Phosphorus (2.5-4.5) mg/dL Total Protein (6.3-8.2) g/dL Albumin (3.5-5.0) g/dL Amylase 114 H (30-110) U/L Lipase 1221 H (23-300) U/L 11/17/23 11/17/23 11/17/23 Range/Units 17:12 17:12 17:28 WBC (3.8-10.6) k/uL RBC (3.80-5.40) m/uL Neutrophils # (1.3-7.7) k/uL Monocytes # (0-1.0) k/uL Sodium 136 L (137-145) mmol/L Potassium (3.5-5.1) mmol/L Chloride 109 H (98-107) mmol/L Carbon Dioxide 15 L (22-30) mmol/L BUN 45 H (7-17) mg/dL Creatinine 1.73 H (0.52-1.04) mg/dL Glucose 490 H (74-99) mg/dL POC Glucose (mg/dL) 479 H (70-110) mg/dL Plasma Lactic Acid Guicho 4.3 H* (0.7-2.0) mmol/L Phosphorus 1.4 L (2.5-4.5) mg/dL Total Protein (6.3-8.2) g/dL Albumin (3.5-5.0) g/dL Amylase (30-110) U/L Lipase (23-300) U/L 11/17/23 11/17/23 11/17/23 Range/Units 18:28 19:27 20:30 WBC (3.8-10.6) k/uL RBC (3.80-5.40) m/uL Neutrophils # (1.3-7.7) k/uL Monocytes # (0-1.0) k/uL Sodium (137-145) mmol/L Potassium (3.5-5.1) mmol/L Chloride (98-107) mmol/L Carbon Dioxide (22-30) mmol/L BUN (7-17) mg/dL Creatinine (0.52-1.04) mg/dL Glucose (74-99) mg/dL POC Glucose (mg/dL) 442 H 330 H 223 H (70-110) mg/dL Plasma Lactic Acid Guicho (0.7-2.0) mmol/L Phosphorus (2.5-4.5) mg/dL Total Protein (6.3-8.2) g/dL Albumin (3.5-5.0) g/dL Amylase (30-110) U/L Lipase (23-300) U/L 11/17/23 11/17/23 11/17/23 Range/Units 20:57 20:57 21:38 WBC (3.8-10.6) k/uL RBC (3.80-5.40) m/uL Neutrophils # (1.3-7.7) k/uL Monocytes # (0-1.0) k/uL Sodium (137-145) mmol/L Potassium 3.4 L (3.5-5.1) mmol/L Chloride 113 H (98-107) mmol/L Carbon Dioxide 18 L (22-30) mmol/L BUN 44 H (7-17) mg/dL Creatinine 1.56 H (0.52-1.04) mg/dL Glucose 220 H (74-99) mg/dL POC Glucose (mg/dL) 192 H (70-110) mg/dL Plasma Lactic Acid Guicho 3.1 H* (0.7-2.0) mmol/L Phosphorus (2.5-4.5) mg/dL Total Protein (6.3-8.2) g/dL Albumin (3.5-5.0) g/dL Amylase (30-110) U/L Lipase (23-300) U/L 11/17/23 11/17/23 11/18/23 Range/Units 22:32 23:31 01:05 WBC (3.8-10.6) k/uL RBC (3.80-5.40) m/uL Neutrophils # (1.3-7.7) k/uL Monocytes # (0-1.0) k/uL Sodium (137-145) mmol/L Potassium (3.5-5.1) mmol/L Chloride 116 H (98-107) mmol/L Carbon Dioxide 18 L (22-30) mmol/L BUN 44 H (7-17) mg/dL Creatinine 1.46 H (0.52-1.04) mg/dL Glucose 112 H (74-99) mg/dL POC Glucose (mg/dL) 171 H 146 H (70-110) mg/dL Plasma Lactic Acid Guicho (0.7-2.0) mmol/L Phosphorus (2.5-4.5) mg/dL Total Protein (6.3-8.2) g/dL Albumin (3.5-5.0) g/dL Amylase (30-110) U/L Lipase (23-300) U/L 11/18/23 11/18/23 11/18/23 Range/Units 01:45 03:36 05:52 WBC 23.0 H (3.8-10.6) k/uL RBC 3.76 L (3.80-5.40) m/uL Neutrophils # 20.4 H (1.3-7.7) k/uL Monocytes # 1.4 H (0-1.0) k/uL Sodium (137-145) mmol/L Potassium (3.5-5.1) mmol/L Chloride (98-107) mmol/L Carbon Dioxide (22-30) mmol/L BUN (7-17) mg/dL Creatinine (0.52-1.04) mg/dL Glucose (74-99) mg/dL POC Glucose (mg/dL) 113 H 116 H (70-110) mg/dL Plasma Lactic Acid Guicho (0.7-2.0) mmol/L Phosphorus (2.5-4.5) mg/dL Total Protein (6.3-8.2) g/dL Albumin (3.5-5.0) g/dL Amylase (30-110) U/L Lipase (23-300) U/L 11/18/23 11/18/23 11/18/23 Range/Units 05:52 06:54 11:48 WBC (3.8-10.6) k/uL RBC (3.80-5.40) m/uL Neutrophils # (1.3-7.7) k/uL Monocytes # (0-1.0) k/uL Sodium (137-145) mmol/L Potassium (3.5-5.1) mmol/L Chloride 115 H (98-107) mmol/L Carbon Dioxide 13 L (22-30) mmol/L BUN 40 H (7-17) mg/dL Creatinine 1.39 H (0.52-1.04) mg/dL Glucose 250 H (74-99) mg/dL POC Glucose (mg/dL) 316 H 209 H (70-110) mg/dL Plasma Lactic Acid Guicho (0.7-2.0) mmol/L Phosphorus (2.5-4.5) mg/dL Total Protein 5.6 L (6.3-8.2) g/dL Albumin 3.0 L (3.5-5.0) g/dL Amylase (30-110) U/L Lipase (23-300) U/L Assessment and Plan Assessment: Acute diabetic ketoacidosis, gap closed Anion gap metabolic acidosis secondary to the above Uncontrolled diabetes mellitus type 2 Alcohol consumption, recently started drinking 1 glass of wine per night Dehydration secondary to the above Sepsis secondary to possible left lower lobe pneumonia, community-acquired, possibly aspiration Acute leukocytosis Acute renal failure Acute metabolic encephalopathy, secondary to all the above improving Diabetic peripheral neuropathy Benign essential hypertension Nephrolithiasis History of anxiety, depression, panic disorder Plan: Continue on current medication resume ,monitoring and symptomatic treatment. ICU management as per transition coach. Continue empiric antibiotics close monitoring of WBC, renal function, blood sugars with repeat labs ordered for a.m. hemoglobin A1c pending. The impression and plan of care has been dictated as directed. : I performed a history and examination of this patient, discussed the same with the dictator. I agree with the dictator's note ,documented as a scribe. Any additional findings or plans will be noted.
[2023-11-18 16:30] LABS: Glucose,Whole Blood 164 mg/dL (70-110)
[2023-11-18 20:09] LABS: Glucose,Whole Blood 192 mg/dL (70-110)
[2023-11-19 06:01] LABS: Glucose,Whole Blood 103 mg/dL (70-110)
[2023-11-19] MEDS: MAGNESIUM SULFATE-D5W PMX 1 GM in DEXTROSE/WATER 1 100ML.BAG IVPB ONE (07:18)
[2023-11-19] MEDS: ACETAMINOPHEN TAB 325 MG TAB PO PRN (10:38)
[2023-11-19 11:47] LABS: Glucose,Whole Blood 282 mg/dL (70-110)
--- NOTE | 2023-11-19 12:47 | P.PN ---
Subjective Progress Note Date: 11/19/23 Principal diagnosis: Acute diabetic ketoacidosis This is a 73-year-old female patient who is coming in today to emergency department with lethargy and weakness and tachypnea the patient was found to have elevated blood sugars and subsequently patient was diagnosed having DKA. The patient has type 1 diabetes mellitus. The daughter is a nurse and she does question her compliancy today insulin intake. Obviously, the patient is currently lethargic and sleepy and altered mentally related to her severe metabolic derangements related to DKA. No fever. Labs were noted and the patient has a white cell count of 26, hemoglobin 15.5 and a platelet count of 292. Venous pH was 6.8. Sodium is at 129, potassium is at 6.5, serum bicarb is less than 5, BUN is 41 with a creatinine 1.9. Glucose was 1219. Left hemoglobin 6.7. UA showing 22 WBCs, 2 RBCs, +4 glucose and +2 ketones and serum acetone is positive. The viral screen is negative. Chest x-ray is clear. Patient was given aggressive IV fluid resuscitation. Subsequently, the patient was transferred to the intensive care unit. Due to lack of IV access, triple- lumen catheter was inserted. She is currently on insulin drip which is running at 15 units an hour. She is also on normal saline at rate of 200 cc an hour. She was given IV bicarb in the emergency department. She is currently on 5 L of oxygen by nasal cannula. No reported aspiration. Reevaluated today on 11/18/2023, patient remains in the ICU, her anion gap has closed, patient is now on Levemir insulin and NovoLog insulin, and does not seem to be in any distress. Continues to have leukocytosis with WBC count of 23.0 hemoglobin 11.7 basic metabolic profile is normal bicarb remains low at 13 BUN 4 0 creatinine 1.39 chest x-ray is suggestive of possible left lower lobe pneumonia, patchy interstitial infiltrates persist mostly in the left lower lobe and left midlung, patient is receiving Zosyn empirically. In spite of her abnormal chest x-ray, patient is on room air, and she denies any pulmonary symptoms Reevaluated today on 11/19/2023, patient remains in the ICU, as an overflow, patient is on room air, does not seem to be in any distress, her DKA has resolved. Patient is on Levemir insulin and subcu insulin. Her leukocytosis is improving down to 23.0/WBC count, electrolytes are normal BUN is 40 creatinine 1.39, improving bicarb remains low at 13. Objective - Vital Signs Vital signs: Vital Signs Temp 98.1 F 11/19/23 08:00 Pulse 98 11/19/23 08:00 Resp 18 11/19/23 08:00 BP 147/89 11/19/23 08:00 Pulse Ox 97 11/19/23 02:00 FiO2 Intake & Output 11/18/23 11/19/23 11/19/23 18:59 06:59 18:59 Intake Total 330 340 240 Output Total 400 400 300 Balance -70 -60 -60 Weight 119.5 kg Intake: IV 330 220 0.9 @ 20 KVO 180 20 Piperacillin-Tazobactam 3 150 200 .375 gm In Sodium Chloride 0.9% 100 ml @ 25 mls/hr IVPB Q8H [facility] Rx#: [id number] Oral 120 240 Output: Urine 400 400 300 Other: Voiding Method Indwelling Catheter Indwelling Catheter Indwelling Catheter - Exam General: 73-year-old female in no distress here., On room air. Skin: Skin is warm and dry and no rashes or lesions are noted. Eye: Pupils are equal, round and reactive to light, extra-ocular movements are intact; there is normal conjunctiva bilaterally. Ears, nose, mouth and throat: There are moist mucous membranes and no oral lesions. Neck: The neck is supple, there is no tenderness or JVD. Cardiovascular: There is a regular rate and rhythm. No murmur, rub or gallop is appreciated. Respiratory: Clear bilaterally no crackles rhonchi or wheezes Gastrointestinal: Soft, non-distended, non-tender abdomen without masses or or ganomegaly noted. There is no rebound or guarding present. Bowel sounds are unremarkable. Musculoskeletal: Normal ROM, no tenderness, There is no pedal edema. There is no calf tenderness or swelling. No cords were appreciated. Neurological: CN II-XII intact, Cranial nerves III through XII are intact. There are no obvious motor or sensory deficits. Coordination appears grossly intact. Speech is normal. Psychiatric: Mood, affect and normal mental status examination. - Labs CBC & Chem 7: 11/18/23 05:52 11/18/23 05:52 Labs: Abnormal Lab Results - Last 24 Hours (Table) 11/18/23 11/18/23 11/18/23 Range/Units 05:52 14:45 16:28 POC Glucose (mg/dL) 212 H 164 H (70-110) mg/dL Hemoglobin A1c 10.0 H (<=6.0) % 11/18/23 11/19/23 Range/Units 20:07 11:45 POC Glucose (mg/dL) 192 H 282 H (70-110) mg/dL Hemoglobin A1c (<=6.0) % Microbiology - Last 24 Hours (Table) 11/17/23 13:54 Blood Culture - Preliminary Blood 11/17/23 13:37 Urine Culture - Preliminary Urine,Catheterized Gram Neg Bacilli Aerococcus urinae Assessment and Plan Assessment: Impression: Acute diabetic ketoacidosis Acute dehydration/severe on presentation Acute leukocytosis Suspect left lower lobe pneumonia, likely community-acquired or could even be related to aspiration since the patient remains on Zosyn for now. Acute kidney injury secondary to above Acute anion gap metabolic acidosis secondary to DKA Diabetic peripheral neuropathy Benign essential hypertension History of nephrolithiasis Recommendation: Continue present supportive care measures Continue IV fluids Continue subcu NovoLog insulin and Levemir insulin Continue GI and DVT prophylaxis Continue Zosyn Transfer to medical surgical floor. Will continue to follow Time with Patient: Less than 30
--- NOTE | 2023-11-19 14:25 | P.PN ---
Subjective Progress Note Date: 11/19/23 11/18/2023 this is a 73-year-old female admitted with acute diabetic ketoacidosis, sepsis. Anion gap closed,10. Transitioned to subcu Levemir and NovoLog sliding scale , blood sugars improving, 1 teens to 250. BUN and creatinine improving, 40/1.39. Bicarb low, 13.Tmax 99.7, WBC trending down, 23. Chest x-ray reporting similar patchy bilateral intestinal opacities. Denies cough or congestion. Denies chest pain, palpitations or shortness of breath. Maintaining O2 sats in the mid 90s on room air. Possible UTI continues on empiric Zosyn. 11/19/2023 MedSurg overflow, sitting up in chair, reports feeling better. Discussed with patient ,computer H&P reported that she recently started drinking 1 glass of wine nightly. Reports no wine, prior to admission had consumed 2 beers at night provided by her daughter. Continues on Levemir and NovoLog sliding scale insulins with blood sugars currently controlled. Labs ordered. Objective - Vital Signs Vital signs: Vital Signs Temp 98.1 F 11/19/23 08:00 Pulse 98 11/19/23 08:00 Resp 18 11/19/23 08:00 BP 147/89 11/19/23 08:00 Pulse Ox 97 11/19/23 02:00 FiO2 Intake & Output 11/18/23 11/19/23 11/19/23 18:59 06:59 18:59 Intake Total 330 340 240 Output Total 400 400 300 Balance -70 -60 -60 Weight 119.5 kg Intake: IV 330 220 0.9 @ 20 KVO 180 20 Piperacillin-Tazobactam 3 150 200 .375 gm In Sodium Chloride 0.9% 100 ml @ 25 mls/hr IVPB Q8H [facility] Rx#: [id number] Oral 120 240 Output: Urine 400 400 300 Other: Voiding Method Indwelling Catheter Indwelling Catheter Indwelling Catheter - Exam PHYSICAL EXAM: VITAL SIGNS: [As above] GENERAL: Alert and oriented x 3, sitting up in chair, no acute distress. HEENT: Atraumatic, normocephalic conjunctivae normal. eyes normal. NECK: Supple, no JVD. CARDIOVASCULAR: S1, S2 regular.. No murmur RESPIRATION: Unlabored, equal air entry, CTA, bibasilar lungs diminished. ABDOMEN: Soft, nondistended, nontender . No guarding. Positive bowel sounds LEGS: No edema. no swelling. NERVOUS SYSTEM: Cranial N 2-12 grossly normal. No focal deficits. Strength and sensation grossly intact. Skin: Warm and dry, no rash. - Labs CBC & Chem 7: 11/18/23 05:52 11/18/23 05:52 Labs: Abnormal Lab Results - Last 24 Hours (Table) 11/18/23 11/18/23 11/18/23 Range/Units 05:52 14:45 16:28 POC Glucose (mg/dL) 212 H 164 H (70-110) mg/dL Hemoglobin A1c 10.0 H (<=6.0) % 11/18/23 11/19/23 Range/Units 20:07 11:45 POC Glucose (mg/dL) 192 H 282 H (70-110) mg/dL Hemoglobin A1c (<=6.0) % Microbiology - Last 24 Hours (Table) 11/17/23 13:54 Blood Culture - Preliminary Blood 11/17/23 13:37 Urine Culture - Preliminary Urine,Catheterized Gram Neg Bacilli Aerococcus urinae Assessment and Plan Assessment: Acute diabetic ketoacidosis, gap closed Anion gap metabolic acidosis secondary to the above Uncontrolled diabetes mellitus type 2, hemoglobin A1c 10, further diabetic education in clinic at follow-up with PCP. Acute UTI Alcohol consumption, recently started drinking 1 glass of wine per night, d ocumented in computer H&P. Patient reports no wine, occasional beer. Dehydration secondary to the above Sepsis secondary to possible left lower lobe pneumonia, community-acquired, possibly aspiration Acute leukocytosis Acute renal failure Acute metabolic encephalopathy, secondary to all the above improving Diabetic peripheral neuropathy Benign essential hypertension Nephrolithiasis History of anxiety, depression, panic disorder Plan: Continue on current medication resume ,monitoring and symptomatic treatment. Maintain NovoLog sliding scale, Levemir insulin. Premeal insulin with parameters ordered. Close monitoring of blood sugars. MedSurg overflow. continue Zosyn, urine culture finalizing.Labs ordered, pending. PT/OT consulted. Alcohol abstinence reinforced .discharge planning in progress for tomorrow pending final DC recommendations and clearance per consults. The impression and plan of care has been dictated as directed. : I performed a history and examination of this patient, discussed the same with the dictator. I agree with the dictator's note ,documented as a scribe. Any additional findings or plans will be noted.
[2023-11-19 14:37] LABS: HGB 12.7 gm/dL (11.4-16.0); MCH 31.2 pg (25.0-35.0); MCHC 32.5 g/dL (31.0-37.0); Mean Platelet Volume 9.8; Platelet Count 173 k/uL (150-450); RBC 4.07 m/uL (3.80-5.40); RDW 13.7 % (11.5-15.5); WBC 10.7 k/uL (3.8-10.6)
[2023-11-19 15:07] LABS: African American GFR (CKD) 58 (>60 ml/min/1.73 sqM); Anion Gap 11 mmol/L; Blood Urea Nitrogen 27 mg/dL (7-17); Calcium 8.9 mg/dL (8.4-10.2); Carbon Dioxide 16 mmol/L (22-30); Chloride 110 mmol/L (98-107); Glucose 232 mg/dL (74-99); Non-African American GFR(CKD) 50 (>60 ml/min/1.73 sqM); Sodium 137 mmol/L (137-145)
[2023-11-19 16:27] LABS: Glucose,Whole Blood 225 mg/dL (70-110)
[2023-11-19] MEDS: BENZOCAINE/MENTHOL LOZENG 1 EACH LOZENGE MUCOUS MEM PRN (16:29)
[2023-11-19] MEDS: INSULIN ASPART (NovoLOG) 100 UNIT/ML VIAL SQ SCH (17:19)
[2023-11-19 19:53] LABS: Glucose,Whole Blood 208 mg/dL (70-110)
[2023-11-20 06:07] LABS: Glucose,Whole Blood 73 mg/dL (70-110)
[2023-11-20] MEDS: D5-0.45% NACL WITH KCL 20MEQ/L 1,000 ML IV SCH (07:55)
[2023-11-20 08:39] LABS: Basophils # (A) 0.05 X 10*3/uL (0.00-0.10); Basophils % (A) 0.6 %; Eosinophils # (A) 0.21 X 10*3/uL (0.04-0.35); Eosinophils % (A) 2.7 %; HCT 35.4 % (37.2-46.3); HGB 11.8 g/dL (12.0-15.0); Lymphocytes # (A) 2.08 X 10*3/uL (0.90-5.00); Lymphocytes % (A) 26.9 %; MCH 30.7 pg (27.0-32.0); MCHC 33.3 g/dL (32.0-37.0); MCV 92.2 FL (80.0-97.0); Mean Platelet Volume 11.8 FL (9.5-12.2); Monocytes # (A) 0.83 X 10*3/uL (0.20-1.00); Monocytes % (A) 10.7 %; NRBC Per 100 WBC 0 X 10*3/uL (0.00-0.01); Neutrophils # (A) 4.54 X 10*3/uL (1.80-7.70); Neutrophils % (A) 58.8 %; Platelet Count 136 X 10*3/uL (140-440); RBC 3.84 X 10*6/uL (4.10-5.20); WBC 7.73 X 10*3/uL (4.50-10.00)
[2023-11-20 09:02] LABS: BUN/Creat Ratio 19.73 Ratio (12.00-20.00); Blood Urea Nitrogen 21.7 mg/dL (9.0-27.0); Calcium 8.4 mg/dL (8.7-10.3); Carbon Dioxide 19.1 mmol/L (21.6-31.8); Chloride 108 mmol/L (96-109); Glucose 67 mg/dL (70-110); Magnesium 1.8 mg/dL (1.5-2.4); Potassium 3.7 mmol/L (3.5-5.5); Sodium 139 mmol/L (135-145)
[2023-11-20] MEDS: MAGNESIUM SULFATE-D5W PMX 1 GM in DEXTROSE/WATER 1 100ML.BAG IVPB ONE (10:46)
[2023-11-20] MEDS: POTASSIUM CHLORIDE ER 20 MEQ TAB.ER PO STA (10:47)
--- NOTE | 2023-11-20 10:58 | P.DS ---
Providers Date of admission: 11/17/23 09:58 Expected date of discharge: 11/20/23 Attending physician: Diogenes Riddle Consults: 11/17/23 09:58 Consult Physician Urgent Consulting Provider: Abel Russell Consult Reason/Comments: DKA Do you want consulting provider notified?: Already Contacted 11/17/23 13:24 Consult Physician Routine Consulting Provider: Blaine Garrett Consult Reason/Comments: sepsis Do you want consulting provider notified?: Yes Primary care physician: Diogenes Riddle Hospital Course: Final Diagnoses: Acute diabetic ketoacidosis, gap closed Anion gap metabolic acidosis secondary to the above, resolved Uncontrolled diabetes mellitus type 2, hemoglobin A1c 10, further diabetic education at subacute rehab and in clinic at follow-up with PCP, post discharge from subacute rehab. Acute UTI, urine culture reporting E. coli, Aerococcus urinae Alcohol consumption, recently started drinking 1 glass of wine per night, documented in computer H&P. Patient reports no wine, occasional beer. Dehydration secondary to the above Sepsis secondary to possible left lower lobe pneumonia, community-acquired, possibly aspiration Acute leukocytosis, resolved Acute renal failure, improving Acute metabolic encephalopathy, secondary to all the above improving Diabetic peripheral neuropathy Benign essential hypertension Nephrolithiasis History of anxiety, depression, panic disorder Hospital course:11/18/2023 this is a 73-year-old female admitted with acute diabetic ketoacidosis, sepsis. Anion gap closed,10. Transitioned to subcu Levemir and NovoLog sliding scale , blood sugars improving, 1 teens to 250. BUN and creatinine improving, 40/1.39. Bicarb low, 13.Tmax 99.7, WBC trending down, 23. Chest x-ray reporting similar patchy bilateral intestinal opacities. Denies cough or congestion. Denies chest pain, palpitations or shortness of breath. Maintaining O2 sats in the mid 90s on room air. Possible UTI continues on empiric Zosyn. 11/19/2023 MedSurg overflow, sitting up in chair, reports feeling better. Discussed with patient ,computer H&P reported that she recently started drinking 1 glass of wine nightly. Reports no wine, prior to admission had consumed 2 beers at night provided by her daughter. Continues on Levemir and NovoLog sliding scale insulins with blood sugars currently controlled. Labs ordered. Maintained on NovoLog sliding scale, Levemir insulin. Premeal insulin with parameters ordered. Close monitoring of blood sugars. MedSurg overflow. continue Zosyn, urine culture finalizing.Labs ordered, pending. PT/OT consulted. Alcohol abstinence reinforced .discharge planning in progress for tomorrow pending final DC recommendations and clearance per consults. 11/20/2023 urine culture reporting E. coli, Aerococcus urinae, significant clinical improvement. Maintained on IV antibiotics as per infectious disease. Afebrile, normal WBC. Renal function continues to improve, bicarb 19.1, BUN 21.7, creatinine 1.1. Potassium 3.7, magnesium 1.8, supplemented this morning. hemodynamically stable, maintaining O2 sats in the high 90s on room air.. evaluated by PT, recommending subacute rehab. Patient will be discharged to subacute rehab today in a stable condition with guarded prognosis, pending final DC antibiotic recommendations as per infectious disease. The impression and plan of care has been dictated as directed. : I performed a history and examination of this patient, discussed the same with the dictator. I agree with the dictator's note ,documented as a scribe. Any additional findings or plans will be noted. Patient Condition at Discharge: Stable Plan - Discharge Summary Discharge Rx Participant: Yes New Discharge Prescriptions: New Pantoprazole [Protonix] 40 mg PO DAILY #30 tab Continue Insulin Glargine,Hum.rec.anlog [Toujeo Solostar] 45 units SQ DAILY Insulin Lispro [humaLOG Kwikpen] See Protocol SQ ACHS FLUoxetine HCL [Sarafem] 60 mg PO DAILY FLUoxetine HCL [Sarafem] 20 mg PO DAILY Levothyroxine Sodium [Synthroid] 125 mcg PO DAILY Discharge Medication List Insulin Glargine,Hum.rec.anlog [Toujeo Solostar] 45 units SQ DAILY 12/30/18 [History] Insulin Lispro [humaLOG Kwikpen] See Protocol SQ ACHS 12/30/18 [History] FLUoxetine HCL [Sarafem] 20 mg PO DAILY 11/17/23 [History] FLUoxetine HCL [Sarafem] 60 mg PO DAILY 11/17/23 [History] Levothyroxine Sodium [Synthroid] 125 mcg PO DAILY 11/17/23 [History] Pantoprazole [Protonix] 40 mg PO DAILY #30 tab 11/20/23 [Rx] Follow up Appointment(s)/Referral(s): Diogenes Riddle DO [Primary Care Provider] - 11/25/23 2:10 pm Activity/Diet/Wound Care/Special Instructions: Further diabetic education outpatient in clinic at PCP follow-up.
[2023-11-20 11:30] LABS: Glucose,Whole Blood 246 mg/dL (70-110)
--- NOTE | 2023-11-20 13:16 | P.PN ---
Subjective Progress Note Date: 11/20/23 This is a 73-year-old female patient who is coming in today to emergency department with lethargy and weakness and tachypnea the patient was found to have elevated blood sugars and subsequently patient was diagnosed having DKA. The patient has type 1 diabetes mellitus. The daughter is a nurse and she does question her compliancy today insulin intake. Obviously, the patient is currently lethargic and sleepy and altered mentally related to her severe metabolic derangements related to DKA. No fever. Labs were noted and the patient has a white cell count of 26, hemoglobin 15.5 and a platelet count of 292. Venous pH was 6.8. Sodium is at 129, potassium is at 6.5, serum bicarb is less than 5, BUN is 41 with a creatinine 1.9. Glucose was 1219. Left hemoglobin 6.7. UA showing 22 WBCs, 2 RBCs, +4 glucose and +2 ketones and serum acetone is positive. The viral screen is negative. Chest x-ray is clear. Patient was given aggressive IV fluid resuscitation. Subsequently, the patient was transferred to the intensive care unit. Due to lack of IV access, triple- lumen catheter was inserted. She is currently on insulin drip which is running at 15 units an hour. She is also on normal saline at rate of 200 cc an hour. She was given IV bicarb in the emergency department. She is currently on 5 L of oxygen by nasal cannula. No reported aspiration. Reevaluated today on 11/18/2023, patient remains in the ICU, her anion gap has closed, patient is now on Levemir insulin and NovoLog insulin, and does not seem to be in any distress. Continues to have leukocytosis with WBC count of 23.0 he moglobin 11.7 basic metabolic profile is normal bicarb remains low at 13 BUN 4 0 creatinine 1.39 chest x-ray is suggestive of possible left lower lobe pneumonia, patchy interstitial infiltrates persist mostly in the left lower lobe and left midlung, patient is receiving Zosyn empirically. In spite of her abnormal chest x-ray, patient is on room air, and she denies any pulmonary symptoms Reevaluated today on 11/19/2023, patient remains in the ICU, as an overflow, patient is on room air, does not seem to be in any distress, her DKA has resolved. Patient is on Levemir insulin and subcu insulin. Her leukocytosis is improving down to 23.0/WBC count, electrolytes are normal BUN is 40 creatinine 1.39, improving bicarb remains low at 13. The patient is seen today November 20, 2023 in follow-up on the regular medical floor. She is currently sitting up in bed. Awake and alert in no acute distress. She is maintaining good O2 saturations in the 90s on room air. Urine culture was positive for E. coli. 39. Potassium 3.7. Bicarb 19. BUN 22. Creatinine 1.1. Glucose 73. She remains on Levemir and NovoLog sliding scale. She is on antibiotics in the form of Zosyn. Heparin for DVT prophylaxis. Objective - Vital Signs Vital signs: Vital Signs Temp 98.5 F 11/20/23 07:28 Pulse 73 11/20/23 07:28 Resp 17 11/20/23 07:28 BP 134/76 11/20/23 07:28 Pulse Ox 97 11/20/23 07:28 FiO2 Intake & Output 11/19/23 11/20/23 11/20/23 18:59 06:59 18:59 Intake Total 240 Output Total 300 Balance -60 Intake: Oral 240 Output: Urine 300 Other: Voiding Method Indwelling Catheter Bedside Commode # Voids 1 1 - Exam GENERAL EXAM: Alert, pleasant 73-year-old female, on room air, comfortable in no apparent distress. HEAD: Normocephalic. EYES: Normal reaction of pupils, equal size. NOSE: Clear with pink turbinates. THROAT: No erythema or exudates. NECK: No masses, no JVD. CHEST: No chest wall deformity. LUNGS: Equal air entry with no crackles, wheeze, rhonchi or dullness. CVS: S1 and S2 normal with no audible murmur, regular rhythm. ABDOMEN: No hepatosplenomegaly, normal bowel sounds, no guarding or rigidity. SPINE: No scoliosis or deformity SKIN: No rashes CENTRAL NERVOUS SYSTEM: No focal deficits, tone is normal in all 4 extremities. EXTREMITIES: There is no peripheral edema. No clubbing, no cyanosis. Periph eral pulses are intact. - Labs CBC & Chem 7: 11/20/23 04:21 11/20/23 04:21 Labs: Abnormal Lab Results - Last 24 Hours (Table) 05/11/19/23 11/19/23 Range/Units 14:19 14:19 16:25 WBC 10.7 H (3.8-10.6) k/uL RBC (4.10-5.20) X 10*6/uL Hgb (12.0-15.0) g/dL Hct (37.2-46.3) % Plt Count (140-440) X 10*3/uL Chloride 110 H (98-107) mmol/L Carbon Dioxide 16 L (22-30) mmol/L BUN 27 H (7-17) mg/dL Creatinine 1.09 H (0.52-1.04) mg/dL Est GFR (CKD-EPI) (>=60) Glucose 232 H (74-99) mg/dL POC Glucose (mg/dL) 225 H (70-110) mg/dL Calcium (8.7-10.3) mg/dL 11/19/23 11/20/23 11/20/23 Range/Units 19:52 04:21 04:21 WBC (3.8-10.6) k/uL RBC 3.84 L (4.10-5.20) X 10*6/uL Hgb 11.8 L (12.0-15.0) g/dL Hct 35.4 L (37.2-46.3) % Plt Count 136 L (140-440) X 10*3/uL Chloride (98-107) mmol/L Carbon Dioxide 19.1 L (22-30) mmol/L BUN (7-17) mg/dL Creatinine (0.52-1.04) mg/dL Est GFR (CKD-EPI) 52 L (>=60) Glucose 67 L (74-99) mg/dL POC Glucose (mg/dL) 208 H (70-110) mg/dL Calcium 8.4 L (8.7-10.3) mg/dL 11/20/23 Range/Units 11:29 WBC (3.8-10.6) k/uL RBC (4.10-5.20) X 10*6/uL Hgb (12.0-15.0) g/dL Hct (37.2-46.3) % Plt Count (140-440) X 10*3/uL Chloride (98-107) mmol/L Carbon Dioxide (22-30) mmol/L BUN (7-17) mg/dL Creatinine (0.52-1.04) mg/dL Est GFR (CKD-EPI) (>=60) Glucose (74-99) mg/dL POC Glucose (mg/dL) 246 H (70-110) mg/dL Calcium (8.7-10.3) mg/dL Microbiology - Last 24 Hours (Table) 11/17/23 13:37 Urine Culture - Final Urine,Catheterized Escherichia coli Aerococcus urinae 11/17/23 13:54 Blood Culture - Preliminary Blood Assessment and Plan Assessment: Acute diabetic ketoacidosis recovered Acute dehydration/severe on presentation, recovered Acute leukocytosis, recovered Acute anion gap metabolic acidosis secondary to DKA, recovered Suspect left lower lobe pneumonia, likely community-acquired or could even be related to aspiration, remains on Zosyn Urinary tract infection secondary to E. coli Acute kidney injury secondary to above, recovered Diabetic peripheral neuropathy Benign essential hypertension History of nephrolithiasis Plan: The patient was seen and evaluated Labs and medications reviewed Currently stable and on room air Plan is for ECF post discharge This patient was seen independently by the pulmonary nurse practitioner add ressing pulmonary issues I have personally seen and examined the patient, performed the documentation and the assessment and plan as written. Number of minutes spent on the visit: 22.
--- NOTE | 2023-11-20 13:29 | P.PN ---
Subjective Progress Note Date: 11/19/23 Principal diagnosis: Reason for follow-up is leukocytosis and UTI Patient is a 73-year-old female past medical history of significant for diabetes mellitus hypertension osteoarthritis heart failure, patient was brought into the hospital for evaluation of confusion, patient noted to be in DKA did have elevated white count positive UA concerning for UTI. On today's evaluation that is 11/19/2023,the patient denies any fever or any chills, patient is breathing comfortably on room air, the patient denies chest pain shortness of breath and no significant cough, patient denies abdominal pain, no nausea vomiting or diarrhea. Feeling better. Patient white count is down to 10.7 creatinine 1.09 Objective - Vital Signs Vital signs: Vital Signs Temp 98.1 F 11/19/23 08:00 Pulse 98 11/19/23 08:00 Resp 18 11/19/23 08:00 BP 147/89 11/19/23 08:00 Pulse Ox 97 11/19/23 02:00 FiO2 Intake & Output 11/18/23 11/19/23 11/19/23 18:59 06:59 18:59 Intake Total 330 340 240 Output Total 400 400 300 Balance -70 -60 -60 Weight 119.5 kg Intake: IV 330 220 0.9 @ 20 KVO 180 20 Piperacillin-Tazobactam 3 150 200 .375 gm In Sodium Chloride 0.9% 100 ml @ 25 mls/hr IVPB Q8H [facility] Rx#: [id number] Oral 120 240 Output: Urine 400 400 300 Other: Voiding Method Indwelling Catheter Indwelling Catheter Indwelling Catheter - Exam GENERAL DESCRIPTION: An elderly female lying in bed in no distress RESPIRATORY SYSTEM: Unlabored breathing , decreased breath sounds at bases HEART: S1 S2 regular rate and rhythm , ABDOMEN: Soft , no tenderness EXTREMITIES: No edema feet - Labs CBC & Chem 7: 11/20/23 04:21 11/20/23 04:21 Labs: Abnormal Lab Results - Last 24 Hours (Table) 11/18/23 11/18/23 11/18/23 Range/Units 05:52 16:28 20:07 WBC (3.8-10.6) k/uL POC Glucose (mg/dL) 164 H 192 H (70-110) mg/dL Hemoglobin A1c 10.0 H (<=6.0) % 11/19/23 11/19/23 Range/Units 11:45 14:19 WBC 10.7 H (3.8-10.6) k/uL POC Glucose (mg/dL) 282 H (70-110) mg/dL Hemoglobin A1c (<=6.0) % Microbiology - Last 24 Hours (Table) 11/17/23 13:54 Blood Culture - Preliminary Blood 11/17/23 13:37 Urine Culture - Preliminary Urine,Catheterized Gram Neg Bacilli Aerococcus urinae Assessment and Plan (1) Leukocytosis Current Visit: Yes Status: Acute Code(s): D72.829 - ELEVATED WHITE BLOOD CELL COUNT, UNSPECIFIED SNOMED Code(s): 093195771 (2) Allergy to sulfa drugs Current Visit: Yes Status: Acute Code(s): Z88.2 - ALLERGY STATUS TO SULFONAMIDES SNOMED Code(s): 49662708 (3) UTI (urinary tract infection) Current Visit: No Status: Acute Code(s): N39.0 - URINARY TRACT INFECTION, SITE NOT SPECIFIED SNOMED Code(s): 79159366 Plan: 1patient presented to the hospital with a sepsis in this patient who did have features of cirrhosis with elevated white count tachycardia and elevated lactic acid source is likely UTI as chest x-ray was negative abdominal was soft on clinical examination no evidence of any cellulitis or joint swelling 2-patient did have some clinical improvement white count is trending down, to continue with the Zosyn while waiting for the culture to finalize and continue with supportive care Dictation was produced using [employer] dictation software. please excuse any grammatical, word or spelling errors. Time with Patient: Less than 30
--- NOTE | 2023-11-20 13:30 | P.PN ---
Subjective Progress Note Date: 11/20/23 Principal diagnosis: Reason for follow-up is leukocytosis and UTI Patient is a 73-year-old female past medical history of significant for diabetes mellitus hypertension osteoarthritis heart failure, patient was brought into the hospital for evaluation of confusion, patient noted to be in DKA did have elevated white count positive UA concerning for UTI. On today's evaluation that is 11/20/2023,the patient remains to be afebrile, patient is on room air not requiring supplemental oxygen and denies any shortness of breath no chest pain or cough.Patient denies having any nausea or vomiting, no abdominal pain and no diarrhea has been reported, patient is feeling better wants to go home. Patient white count normalized to 7.73 creatinine is 1.1 urine has been finaliz ed with E. coli and Aerococcus Objective - Vital Signs Vital signs: Vital Signs Temp 98.5 F 11/20/23 07:28 Pulse 73 11/20/23 07:28 Resp 17 11/20/23 07:28 BP 134/76 11/20/23 07:28 Pulse Ox 97 11/20/23 07:28 FiO2 Intake & Output 11/19/23 11/20/23 11/20/23 18:59 06:59 18:59 Intake Total 240 Output Total 300 Balance -60 Intake: Oral 240 Output: Urine 300 Other: Voiding Method Indwelling Catheter Bedside Commode # Voids 1 1 - Exam GENERAL DESCRIPTION: An elderly female lying in bed in no distress RESPIRATORY SYSTEM: Unlabored breathing , decreased breath sounds at bases HEART: S1 S2 regular rate and rhythm , ABDOMEN: Soft , no tenderness EXTREMITIES: No edema feet - Labs CBC & Chem 7: 11/20/23 04:21 11/20/23 04:21 Labs: Abnormal Lab Results - Last 24 Hours (Table) 11/19/23 11/19/23 11/19/23 Range/Units 11:45 14:19 14:19 WBC 10.7 H (3.8-10.6) k/uL RBC (4.10-5.20) X 10*6/uL Hgb (12.0-15.0) g/dL Hct (37.2-46.3) % Plt Count (140-440) X 10*3/uL Chloride 110 H (98-107) mmol/L Carbon Dioxide 16 L (22-30) mmol/L BUN 27 H (7-17) mg/dL Creatinine 1.09 H (0.52-1.04) mg/dL Est GFR (CKD-EPI) (>=60) Glucose 232 H (74-99) mg/dL POC Glucose (mg/dL) 282 H (70-110) mg/dL Calcium (8.7-10.3) mg/dL 11/19/23 11/19/23 11/20/23 Range/Units 16:25 19:52 04:21 WBC (3.8-10.6) k/uL RBC (4.10-5.20) X 10*6/uL Hgb (12.0-15.0) g/dL Hct (37.2-46.3) % Plt Count (140-440) X 10*3/uL Chloride (98-107) mmol/L Carbon Dioxide 19.1 L (22-30) mmol/L BUN (7-17) mg/dL Creatinine (0.52-1.04) mg/dL Est GFR (CKD-EPI) 52 L (>=60) Glucose 67 L (74-99) mg/dL POC Glucose (mg/dL) 225 H 208 H (70-110) mg/dL Calcium 8.4 L (8.7-10.3) mg/dL 11/20/23 Range/Units 04:21 WBC (3.8-10.6) k/uL RBC 3.84 L (4.10-5.20) X 10*6/uL Hgb 11.8 L (12.0-15.0) g/dL Hct 35.4 L (37.2-46.3) % Plt Count 136 L (140-440) X 10*3/uL Chloride (98-107) mmol/L Carbon Dioxide (22-30) mmol/L BUN (7-17) mg/dL Creatinine (0.52-1.04) mg/dL Est GFR (CKD-EPI) (>=60) Glucose (74-99) mg/dL POC Glucose (mg/dL) (70-110) mg/dL Calcium (8.7-10.3) mg/dL Microbiology - Last 24 Hours (Table) 11/17/23 13:37 Urine Culture - Final Urine,Catheterized Escherichia coli Aerococcus urinae 11/17/23 13:54 Blood Culture - Preliminary Blood Assessment and Plan (1) UTI (urinary tract infection) Current Visit: No Status: Acute Code(s): N39.0 - URINARY TRACT INFECTION, SITE NOT SPECIFIED SNOMED Code(s): 81511569 Plan: 1patient presented to the hospital with a sepsis in this patient who did have features of cirrhosis with elevated white count tachycardia and elevated lactic acid source is likely UTI as chest x-ray was negative abdominal was soft on clinical examination no evidence of any cellulitis or joint swelling 2-patient did have resolution of her leukocytosis urine has been finalized with E. coli and Aerococcus continue Zosyn while inpatient finishing therapy with oral Cipro discussed with the admitting team [employer] working on discharge Dictation was produced using [employer] dictation software. please excuse any grammatical, word or spelling errors. Time with Patient: Less than 30
[2023-11-20 14:51] VITALS: BP 113/71; PULSE 85; RESP 16; TEMP 97.7
== END 2023-11-20 14:54 | DRG 637 ==
LOC: EC 08:45 → 2SICU 09:58 → 4SSUR 11-19 14:56
PROVIDERS: ADMIT Family Medicine; ATTEND Family Medicine
PROC: 05H633Z Insertion of Infusion Device into Left Subclavian Vein, Percutaneous Approach (ICD-10-PCS; principal; 2023-11-17)
DX: E10.10 Type 1 diabetes mellitus with ketoacidosis without coma (principal); A41.9 Sepsis, unspecified organism; G93.41 Metabolic encephalopathy; J18.9 Pneumonia, unspecified organism; N39.0 Urinary tract infection, site not specified; N17.9 Acute kidney failure, unspecified; E10.42 Type 1 diabetes mellitus with diabetic polyneuropathy; I50.9 Heart failure, unspecified; I11.0 Hypertensive heart disease with heart failure; F32.A Depression, unspecified; F41.0 Panic disorder [episodic paroxysmal anxiety]; M19.90 Unspecified osteoarthritis, unspecified site; E86.0 Dehydration; N20.0 Calculus of kidney; Z90.49 Acquired absence of other specified parts of digestive tract; Z88.2 Allergy status to sulfonamides; F41.9 Anxiety disorder, unspecified; M10.072 Idiopathic gout, left ankle and foot; G25.81 Restless legs syndrome; K57.90 Diverticulosis of intestine, part unspecified, without perforation or abscess without bleeding; Z87.19 Personal history of other diseases of the digestive system; Z88.8 Allergy status to other drugs, medicaments and biological substances; Z91.048 Other nonmedicinal substance allergy status
CPT/HCPCS: 36415; 51702; 71045; 80048; 80051; 80053; 81001; 82009; 82150; 82565; 82803; 82947; 83036; 83605; 83690; 83735; 84100; 84520; 85025; 85027; 85610; 85730; 86850; 86900; 86901; 87040; 87077; 87086; 87186; 87636; 93005; 96361; 96374; 99291

== ENCOUNTER 2024-03-14 17:31 | Inpatient (IN) | payer MEDICARE, BC ==
[2024-03-14 17:47] LABS: Glucose,Whole Blood >600 mg/dL (70-110)
[2024-03-14] MEDS: ONDANSETRON 4 MG/2 ML VIAL IVP STA (18:04)
[2024-03-14] MEDS: SODIUM CHLORIDE 0.9% 1,000 ML IV STA ×2 (18:04→20:13)
[2024-03-14 18:29] LABS: Partial Thromboplastin Time 23.8 sec (22.0-30.0); Prothrombin Time 10.5 sec (10.0-12.5)
[2024-03-14 18:33] LABS: ALT 14 U/L (4-34); AST 20 U/L (14-36); African American GFR (CKD) 36 (>60 ml/min/1.73 sqM); Albumin 4.3 g/dL (3.5-5.0); Alkaline Phosphatase 127 U/L (38-126); Blood Urea Nitrogen 40 mg/dL (7-17); Calcium 9.5 mg/dL (8.4-10.2); Chloride 98 mmol/L (98-107); Non-African American GFR(CKD) 31 (>60 ml/min/1.73 sqM); Phosphorus 6.1 mg/dL (2.5-4.5); Potassium 5.6 mmol/L (3.5-5.1); Sodium 131 mmol/L (137-145); Total Bilirubin 0.8 mg/dL (0.2-1.3); Total Protein 6.8 g/dL (6.3-8.2)
[2024-03-14 18:42] LABS: NT-Pro-B-Type Natriuretic Pept 1660 pg/mL
--- NOTE | 2024-03-14 18:46 | XR ---
EXAMINATION TYPE: XR chest 2V DATE OF EXAM: 03/14/2024 COMPARISON: 11/18/2023 INDICATION: Difficulty in breathing TECHNIQUE: Frontal and lateral views of the chest are obtained. FINDINGS: The heart size is normal. The pulmonary vasculature is normal. The lungs are clear. IMPRESSION: 1. No acute pulmonary process. [facility], Workstation: [facility], 03/14/2024 6:44 PM
--- NOTE | 2024-03-14 19:07 | ED ---
Recheck HPI - General Chief Complaint: Abdominal Pain Stated Complaint: AMS/high blood sugar Time Seen by Provider: 03/14/24 17:35 Source: patient, EMS, RN notes reviewed Mode of arrival: EMS Limitations: no limitations - History of Present Illness Initial Comments: This is a 73-year-old female who presents to the emergency department for hyperglycemia. Patient has type 2 diabetes and states that for the last week she has been taking her insulin incorrectly. She was using the Toujeo but states that she had forgotten to use the other insulin along with it and was not sure what this was. Overall, states that she is very confused with how to dose her insulin. This has caused her blood sugar to get extremely high. Patient does live alone and was speaking with her daughter saying that she felt very weak and could not continue walking. This prompted her daughter to call EMS to bring her to the emergency department. Patient reports associated nausea and some shortness of breath. She does have a history of DKA and was recently hospitalized for it a few months ago. - Related Data Home Medications Medication Instructions Recorded Confirmed Insulin Glargine,Hum.rec.anlog 55 units SQ HS 12/30/18 03/14/24 [Toujeo Solostar] FLUoxetine HCL [Sarafem] 20 mg PO HS 11/17/23 03/14/24 FLUoxetine HCL [Sarafem] 60 mg PO HS 11/17/23 03/14/24 Gabapentin [Neurontin] 100 mg PO BID PRN 03/14/24 03/14/24 INSULIN LISPRO (HumaLOG) [humaLOG] See Protocol SQ ACHS 03/14/24 03/14/24 Levothyroxine Sodium 137 mcg PO DAILY 03/14/24 03/14/24 rOPINIRole HCL [Requip] 1 mg PO BID 03/14/24 03/14/24 traMADol HCL 50 mg PO Q6H PRN 03/14/24 03/14/24 Allergies Allergy/AdvReac Type Severity Reaction Status Date / Time formaldehyde Allergy Itching Verified 11/17/23 10:42 nickel Allergy Itching Verified 11/17/23 10:42 quaternium Allergy Itching Verified 11/17/23 10:42 Sulfa (Sulfonamide Allergy Itching Verified 11/17/23 10:42 Antibiotics) Review of Systems ROS Statement: Those systems with pertinent positive or pertinent negative responses have been documented in the HPI. ROS Other: All systems not noted in ROS Statement are negative. Past Medical History Past Medical History: Heart Failure, Diabetes Mellitus, GI Bleed, Hypertension, Osteoarthritis (OA), Thyroid Disorder Additional Past Medical History / Comment(s): IDDM type I per pt, peripheral neuropathy bilateral hands and feet, arthritis bilateral hands, occasional low back pain, gout L great toe, hypothyroid, L great toe callus, lower GI bleed, diverticulosis, RLS. hep C History of Any Multi-Drug Resistant Organisms: None Reported Past Surgical History: Cholecystectomy, Hernia Repair, Joint Replacement Additional Past Surgical History / Comment(s): Umbilical hernia repair, kidney stone basketing and lithotripsy, total L knee arthroplasty, colonoscopy. Past Anesthesia/Blood Transfusion Reactions: Postoperative Nausea & Vomiting (PONV) Additional Past Anesthesia/Blood Transfusion Reaction / Comment(s): Ponv x1. Past Psychological History: Anxiety, Depression, Panic Disorder Smoking Status: Never smoker Past Alcohol Use History: Rare Past Drug Use History: None Reported - Past Family History Father History Unknown: Yes Family Medical History: Diabetes Mellitus Additional Family Medical History / Comment(s): etoh Mother Family Medical History: Liver Disease Additional Family Medical History / Comment(s): etoh Brother(s) Additional Family Medical History / Comment(s): depression, etoh General Exam Limitations: no limitations General appearance: alert, in no apparent distress Head exam: Present: atraumatic, normocephalic, normal inspection Respiratory exam: Present: normal lung sounds bilaterally. Absent: respiratory distress, wheezes, rales, rhonchi, stridor Cardiovascular Exam: Present: regular rate, normal rhythm, normal heart sounds. Absent: systolic murmur, diastolic murmur, rubs, gallop, clicks GI/Abdominal exam: Present: soft, normal bowel sounds. Absent: distended, tenderness, guarding, rebound, rigid Neurological exam: Present: alert, oriented X3, CN II-XII intact Psychiatric exam: Present: normal affect, normal mood Skin exam: Present: warm, dry, intact, normal color. Absent: rash Course Vital Signs 03/14/24 03/14/24 03/14/24 17:36 19:15 20:00 Temperature 97.8 F Pulse Rate 110 H 96 65 Respiratory 18 22 16 Rate Blood Pressure 132/72 126/52 107/59 O2 Sat by Pulse 96 96 98 Oximetry 03/14/24 21:00 Temperature Pulse Rate 84 Respiratory 16 Rate Blood Pressure 110/77 O2 Sat by Pulse 96 Oximetry Medical Decision Making - Medical Decision Making This is a 73 year old female who presents to the emergency department for hyperglycemia. Was pt. sent in by a medical professional or institution? @ -No Did you speak to anyone other than the patient for history? @ -No Did you review nursing and triage notes? @ -Yes, and I agree, it is accurate with regards to the patient's symptoms. Were old charts reviewed? @ -No Differential Diagnosis? @ -Differential Hyperglycemia: DKA, HHS, medication error, dietary changes, this is not meant to be an all- inclusive list. EKG interpreted by me (3pts min.)? @ -EKG interpreted by me demonstrating the following: Sinus tachycardia. Ventricular rate 112 bpm, WV interval 197 ms, QRS duration 126 ms, QTc 409 ms. X-rays interpreted by me (1pt min.)? @ -Chest x-ray obtained, my interpretation identifies no localized consolidations or infiltrates. CT interpreted by me (1pt min.)? @ -Not obtained U/S interpreted by me (1pt. min.)? @ -Not obtained What testing was considered but not performed? (CT, X-rays, U/S, labs)? Why? @ -None What meds were considered but not given? Why? @ -None Did you discuss the management of the patient with other professionals? @ -Yes, Dr. Carbajal, who accepts the patient for admission. Dr. Lopez accepts the patient for admission to the ICU. Did you reconcile home meds? @ -Yes Was smoking cessation discussed for >3mins.? @ -No Was critical care preformed (if so, how long)? @ -Yes, >35 minutes Were there social determinants of health that impacted care today? How? (Homelessness, low income, unemployed, alcoholism, drug addiction, transportation, low edu. Level, literacy, decrease access to med. care, senior care, rehab)? @ -No Was there de-escalation of care discussed even if they declined? (Discuss DNR or withdrawal of care, Hospice)? @ -No What co-morbidities impacted this encounter? (DM, HTN, Smoking, COPD, CAD, Cancer, CVA, Hep., AIDS, mental health diagnosis, sleep apnea, morbid obesity)? @ -DM, HTN Was patient admitted / discharged? @ -Admitted. On arrival patient was given a 1.5 L bolus of IV fluids. Lab work demonstrates leukocytosis with a white blood cell count of 14.1. Lactic acid 4.3. Glucose elevated at 800. Bicarb was less than 5 and anion gap could not be calculated. VBH returned with a pH of 7.1 and bicarb of 9. Acetone positive. Findings consistent with diabetic ketoacidosis. Chest x-ray reveals no acute process. Patient started on the DKA protocol and admitted to the ICU for further management. Case discussed with ED attending Dr. Liz. Urinalysis was ordered with results pending at the time of admission. Undiagnosed new problem with uncertain prognosis? @ -None Drug Therapy requiring intensive monitoring for toxicity (Heparin, Nitro, Insulin, Cardizem)? @ -Insulin Were any procedures done? @ -None Diagnosis/symptom? @ -DKA Acute, or Chronic, or Acute on Chronic? @ -Acute Uncomplicated (without systemic symptoms) or Complicated (systemic symptoms)? @ -Complicated Side effects of treatment? @ -None Exacerbation, Progression, or Severe Exacerbation] @ -Not applicable Poses a threat to life or bodily function? @ -Yes, can lead to - Lab Data Result diagrams: 03/14/24 17:50 03/14/24 17:50 Lab Results 03/14/24 03/14/24 03/14/24 Range/Units 17:42 17:50 17:50 WBC 14.1 H (3.8-10.6) k/uL RBC 4.25 (3.80-5.40) m/uL Hgb 12.9 (11.4-16.0) gm/dL Hct 44.5 (34.0-46.0) % MCV 104.8 H (80.0-100.0) fL MCH 30.4 (25.0-35.0) pg MCHC 29.0 L (31.0-37.0) g/dL RDW 12.8 (11.5-15.5) % Plt Count 276 (150-450) k/uL MPV 10.4 Neutrophils % 91 % Lymphocytes % 4 % Monocytes % 4 % Eosinophils % 0 % Basophils % 1 % Neutrophils # 12.9 H (1.3-7.7) k/uL Lymphocytes # 0.6 L (1.0-4.8) k/uL Monocytes # 0.5 (0-1.0) k/uL Eosinophils # 0.0 (0-0.7) k/uL Basophils # 0.1 (0-0.2) k/uL Hypochromasia Marked Macrocytosis Slight PT 10.5 (10.0-12.5) sec INR 1.0 (<1.2) APTT 23.8 (22.0-30.0) sec VBG pH (7.31-7.41) VBG pCO2 (37-51) mmHg VBG HCO3 (24-28) mmol/L Sodium (137-145) mmol/L Potassium (3.5-5.1) mmol/L Chloride (98-107) mmol/L Carbon Dioxide (22-30) mmol/L Anion Gap mmol/L BUN (7-17) mg/dL Creatinine (0.52-1.04) mg/dL Est GFR (CKD-EPI)AfAm (>60 ml/min/1.73 sqM) Est GFR (CKD-EPI)NonAf (>60 ml/min/1.73 sqM) Glucose (74-99) mg/dL POC Glucose (mg/dL) >600 H* (70-110) mg/dL POC Glu Global Account Director ID Cuca Real Lactic Ac Sepsis Rflx Plasma Lactic Acid Guicho (0.7-2.0) mmol/L Calcium (8.4-10.2) mg/dL Phosphorus (2.5-4.5) mg/dL Magnesium (1.6-2.3) mg/dL Total Bilirubin (0.2-1.3) mg/dL AST (14-36) U/L ALT (4-34) U/L Alkaline Phosphatase (38-126) U/L Troponin I (0.000-0.034) ng/mL NT-Pro-B Natriuret Pep pg/mL Total Protein (6.3-8.2) g/dL Albumin (3.5-5.0) g/dL Acetone, Qual (Negative) 03/14/24 03/14/24 03/14/24 Range/Units 17:50 17:50 17:50 WBC (3.8-10.6) k/uL RBC (3.80-5.40) m/uL Hgb (11.4-16.0) gm/dL Hct (34.0-46.0) % MCV (80.0-100.0) fL MCH (25.0-35.0) pg MCHC (31.0-37.0) g/dL RDW (11.5-15.5) % Plt Count (150-450) k/uL MPV Neutrophils % % Lymphocytes % % Monocytes % % Eosinophils % % Basophils % % Neutrophils # (1.3-7.7) k/uL Lymphocytes # (1.0-4.8) k/uL Monocytes # (0-1.0) k/uL Eosinophils # (0-0.7) k/uL Basophils # (0-0.2) k/uL Hypochromasia Macrocytosis PT (10.0-12.5) sec INR (<1.2) APTT (22.0-30.0) sec VBG pH (7.31-7.41) VBG pCO2 (37-51) mmHg VBG HCO3 (24-28) mmol/L Sodium 131 L (137-145) mmol/L Potassium 5.6 H (3.5-5.1) mmol/L Chloride 98 (98-107) mmol/L Carbon Dioxide <5 L* (22-30) mmol/L Anion Gap mmol/L BUN 40 H (7-17) mg/dL Creatinine 1.62 H (0.52-1.04) mg/dL Est GFR (CKD-EPI)AfAm 36 (>60 ml/min/1.73 sqM) Est GFR (CKD-EPI)NonAf 31 (>60 ml/min/1.73 sqM) Glucose 800 H* (74-99) mg/dL POC Glucose (mg/dL) (70-110) mg/dL POC Glu Global Account Director ID Lactic Ac Sepsis Rflx Plasma Lactic Acid Guicho 4.3 H* (0.7-2.0) mmol/L Calcium 9.5 (8.4-10.2) mg/dL Phosphorus 6.1 H (2.5-4.5) mg/dL Magnesium 2.0 (1.6-2.3) mg/dL Total Bilirubin 0.8 (0.2-1.3) mg/dL AST 20 (14-36) U/L ALT 14 (4-34) U/L Alkaline Phosphatase 127 H (38-126) U/L Troponin I 0.022 (0.000-0.034) ng/mL NT-Pro-B Natriuret Pep 1660 pg/mL Total Protein 6.8 (6.3-8.2) g/dL Albumin 4.3 (3.5-5.0) g/dL Acetone, Qual Positive (Negative) 03/14/24 03/14/24 03/14/24 Range/Units 19:25 19:57 19:58 WBC (3.8-10.6) k/uL RBC (3.80-5.40) m/uL Hgb (11.4-16.0) gm/dL Hct (34.0-46.0) % MCV (80.0-100.0) fL MCH (25.0-35.0) pg MCHC (31.0-37.0) g/dL RDW (11.5-15.5) % Plt Count (150-450) k/uL MPV Neutrophils % % Lymphocytes % % Monocytes % % Eosinophils % % Basophils % % Neutrophils # (1.3-7.7) k/uL Lymphocytes # (1.0-4.8) k/uL Monocytes # (0-1.0) k/uL Eosinophils # (0-0.7) k/uL Basophils # (0-0.2) k/uL Hypochromasia Macrocytosis PT (10.0-12.5) sec INR (<1.2) APTT (22.0-30.0) sec VBG pH 7.11 L* (7.31-7.41) VBG pCO2 27 L (37-51) mmHg VBG HCO3 9 L* (24-28) mmol/L Sodium (137-145) mmol/L Potassium (3.5-5.1) mmol/L Chloride (98-107) mmol/L Carbon Dioxide (22-30) mmol/L Anion Gap mmol/L BUN (7-17) mg/dL Creatinine (0.52-1.04) mg/dL Est GFR (CKD-EPI)AfAm (>60 ml/min/1.73 sqM) Est GFR (CKD-EPI)NonAf (>60 ml/min/1.73 sqM) Glucose (74-99) mg/dL POC Glucose (mg/dL) >600 H* (70-110) mg/dL POC Glu Global Account Director ID [place]og[place] Marie Lactic Ac Sepsis Rflx Y Plasma Lactic Acid Guicho (0.7-2.0) mmol/L Calcium (8.4-10.2) mg/dL Phosphorus (2.5-4.5) mg/dL Magnesium (1.6-2.3) mg/dL Total Bilirubin (0.2-1.3) mg/dL AST (14-36) U/L ALT (4-34) U/L Alkaline Phosphatase (38-126) U/L Troponin I (0.000-0.034) ng/mL NT-Pro-B Natriuret Pep pg/mL Total Protein (6.3-8.2) g/dL Albumin (3.5-5.0) g/dL Acetone, Qual (Negative) 03/14/24 03/14/24 03/14/24 Range/Units 20:57 22:00 22:50 WBC (3.8-10.6) k/uL RBC (3.80-5.40) m/uL Hgb (11.4-16.0) gm/dL Hct (34.0-46.0) % MCV (80.0-100.0) fL MCH (25.0-35.0) pg MCHC (31.0-37.0) g/dL RDW (11.5-15.5) % Plt Count (150-450) k/uL MPV Neutrophils % % Lymphocytes % % Monocytes % % Eosinophils % % Basophils % % Neutrophils # (1.3-7.7) k/uL Lymphocytes # (1.0-4.8) k/uL Monocytes # (0-1.0) k/uL Eosinophils # (0-0.7) k/uL Basophils # (0-0.2) k/uL Hypochromasia Macrocytosis PT (10.0-12.5) sec INR (<1.2) APTT (22.0-30.0) sec VBG pH (7.31-7.41) VBG pCO2 (37-51) mmHg VBG HCO3 (24-28) mmol/L Sodium (137-145) mmol/L Potassium (3.5-5.1) mmol/L Chloride (98-107) mmol/L Carbon Dioxide (22-30) mmol/L Anion Gap mmol/L BUN (7-17) mg/dL Creatinine (0.52-1.04) mg/dL Est GFR (CKD-EPI)AfAm (>60 ml/min/1.73 sqM) Est GFR (CKD-EPI)NonAf (>60 ml/min/1.73 sqM) Glucose (74-99) mg/dL POC Glucose (mg/dL) >600 H* 442 H 336 H (70-110) mg/dL POC Glu Global Account Director ID Marie, [place] Marie, Mahog[place] Marie, [place] Lactic Ac Sepsis Rflx Plasma Lactic Acid Guicho (0.7-2.0) mmol/L Calcium (8.4-10.2) mg/dL Phosphorus (2.5-4.5) mg/dL Magnesium (1.6-2.3) mg/dL Total Bilirubin (0.2-1.3) mg/dL AST (14-36) U/L ALT (4-34) U/L Alkaline Phosphatase (38-126) U/L Troponin I (0.000-0.034) ng/mL NT-Pro-B Natriuret Pep pg/mL Total Protein (6.3-8.2) g/dL Albumin (3.5-5.0) g/dL Acetone, Qual (Negative) - Radiology Data Radiology results: report reviewed, image reviewed Critical Care Time Critical Care Time: Yes Critical Care Time: >35 minutes Disposition Clinical Impression: DKA (diabetic ketoacidosis) Disposition: ADMITTED IP TO THIS HOSP Referrals: Diogenes Riddle DO [Primary Care Provider] - 1-2 days
[2024-03-14 19:24] LABS: Carbon Dioxide <5 mmol/L (22-30); Glucose 800 mg/dL (74-99)
[2024-03-14 19:25] LABS: Basophils # (A) 0.1 k/uL (0-0.2); Basophils % (A) 1 %; Eosinophils % (A) 0 %; HCT 44.5 % (34.0-46.0); HGB 12.9 gm/dL (11.4-16.0); Hypochromasia Marked; Lymphocytes # (A) 0.6 k/uL (1.0-4.8); Lymphocytes % (A) 4 %; MCH 30.4 pg (25.0-35.0); MCV 104.8 fL (80.0-100.0); Macrocytosis Slight; Mean Platelet Volume 10.4; Monocytes # (A) 0.5 k/uL (0-1.0); Monocytes % (A) 4 %; Neutrophils # (A) 12.9 k/uL (1.3-7.7); Neutrophils % (A) 91 %; Platelet Count 276 k/uL (150-450); RBC 4.25 m/uL (3.80-5.40); RDW 12.8 % (11.5-15.5); WBC 14.1 k/uL (3.8-10.6)
[2024-03-14 19:59] LABS: Glucose,Whole Blood >600 mg/dL (70-110)
[2024-03-14] MEDS: INSULIN REGULAR BOLUS (FROM DRIP BAG) IV ONE (20:13)
[2024-03-14] MEDS: INSULIN REGULAR 100 UNIT in SODIUM CHLORIDE 0.9% 100 ML IV SCH (20:14)
[2024-03-14] MEDS: SODIUM CHLORIDE 0.9% 1,000 ML IV SCH (20:20)
[2024-03-14] MEDS ORDERED: GABAPENTIN 100 MG CAP PO PRN (20:34)
[2024-03-14] MEDS ORDERED: traMADol 50 MG TAB PO PRN (20:34)
[2024-03-14 20:59] LABS: VBG PH 7.11 (7.31-7.41)
[2024-03-14] MEDS ORDERED: FLUoxetine HCL 20 MG CAP PO SCH (21:00)
[2024-03-14] MEDS ORDERED: NON FORMULARY DRUG (Fluoxetine Hcl [Sarafem] 60 MG Tablet) PO SCH (21:00)
[2024-03-14 21:02] LABS: Glucose,Whole Blood >600 mg/dL (70-110)
[2024-03-14] MEDS: FLUoxetine HCL 20 MG CAP PO SCH (22:01)
[2024-03-14 22:06] LABS: Glucose,Whole Blood 442 mg/dL (70-110)
[2024-03-14 22:52] LABS: Glucose,Whole Blood 336 mg/dL (70-110)
[2024-03-14] MEDS ORDERED: NALOXONE 0.4 MG/ML 1 ML VIAL IV PRN (23:21)
[2024-03-14] MEDS ORDERED: HYDROcodone/APAP 5-325MG 1 EACH TAB PO PRN (23:21)
[2024-03-14] MEDS ORDERED: MORPHINE SULFATE 4 MG/ML SYRINGE IV PRN (23:21)
[2024-03-14 23:30] LABS: Potassium 4.5 mmol/L (3.5-5.1); Sodium 126 mmol/L (137-145)
[2024-03-14 23:31] LABS: African American GFR (CKD) 38 (>60 ml/min/1.73 sqM); Anion Gap 13 mmol/L; Blood Urea Nitrogen 44 mg/dL (7-17); Carbon Dioxide 12 mmol/L (22-30); Chloride 101 mmol/L (98-107); Glucose 331 mg/dL (74-99); Non-African American GFR(CKD) 33 (>60 ml/min/1.73 sqM)
[2024-03-14 23:36] LABS: Appearance,Urine Clear (Clear); Bilirubin,Urine 1+ (Negative); Blood,Urine Negative (Negative); Color,Urine Colorless; Glucose,Urine (UA) 4+ (Negative); Leukocyte Esterase,Urine Negative (Negative); Nitrite,Urine Negative (Negative); Protein,Urine Trace (Negative); Specific Gravity,Urine 1.019 (1.001-1.035)
[2024-03-14 23:45] LABS: Ketones,Urine 3+ (Negative)
[2024-03-15] MEDS: D5-0.45% NACL WITH KCL 20MEQ/L 1,000 ML IV SCH (00:06)
[2024-03-15 00:12] LABS: Glucose,Whole Blood 221 mg/dL (70-110)
[2024-03-15 01:09] LABS: Glucose,Whole Blood 157 mg/dL (70-110)
[2024-03-15 01:44] LABS: Glucose,Whole Blood 123 mg/dL (70-110)
[2024-03-15 03:01] LABS: Glucose,Whole Blood 101 mg/dL (70-110)
[2024-03-15 04:04] LABS: Glucose,Whole Blood 85 mg/dL (70-110)
[2024-03-15 04:38] LABS: Glucose,Whole Blood 89 mg/dL (70-110)
[2024-03-15 05:29] LABS: Glucose,Whole Blood 109 mg/dL (70-110)
[2024-03-15 05:58] LABS: ALT 9 U/L (4-34); AST 14 U/L (14-36); African American GFR (CKD) 40 (>60 ml/min/1.73 sqM); Albumin 3.4 g/dL (3.5-5.0); Alkaline Phosphatase 101 U/L (38-126); Anion Gap 7 mmol/L; Blood Urea Nitrogen 42 mg/dL (7-17); Calcium 8.9 mg/dL (8.4-10.2); Carbon Dioxide 15 mmol/L (22-30); Chloride 109 mmol/L (98-107); Glucose 107 mg/dL (74-99); Magnesium 1.7 mg/dL (1.6-2.3); Non-African American GFR(CKD) 35 (>60 ml/min/1.73 sqM); Phosphorus 3.3 mg/dL (2.5-4.5); Potassium 4.3 mmol/L (3.5-5.1); Sodium 131 mmol/L (137-145); Total Bilirubin 0.9 mg/dL (0.2-1.3); Total Protein 5.8 g/dL (6.3-8.2)
[2024-03-15 06:03] LABS: Glucose,Whole Blood 116 mg/dL (70-110)
[2024-03-15] MEDS: LEVOTHYROXINE 137 MCG TAB PO SCH (06:45)
[2024-03-15 07:02] LABS: Glucose,Whole Blood 117 mg/dL (70-110)
[2024-03-15] MEDS: PANTOPRAZOLE 40 MG/10 ML VIAL IV SCH (07:49)
[2024-03-15 07:57] LABS: Glucose,Whole Blood 131 mg/dL (70-110)
[2024-03-15] MEDS: ONDANSETRON 4 MG/2 ML VIAL IVP PRN (08:03)
[2024-03-15] MEDS: ACETAMINOPHEN TAB 325 MG TAB PO PRN (08:11)
[2024-03-15 09:11] LABS: Glucose,Whole Blood 180 mg/dL (70-110)
[2024-03-15 10:06] LABS: Glucose,Whole Blood 224 mg/dL (70-110)
[2024-03-15 10:20] LABS: Glucose 191 mg/dL (74-99); Potassium 4.8 mmol/L (3.5-5.1); Sodium 131 mmol/L (137-145)
[2024-03-15 10:21] LABS: ALT 8 U/L (4-34); AST 15 U/L (14-36); African American GFR (CKD) 44 (>60 ml/min/1.73 sqM); Albumin 3.3 g/dL (3.5-5.0); Alkaline Phosphatase 105 U/L (38-126); Anion Gap 8 mmol/L; Blood Urea Nitrogen 41 mg/dL (7-17); Carbon Dioxide 15 mmol/L (22-30); Chloride 108 mmol/L (98-107); Magnesium 1.6 mg/dL (1.6-2.3); Non-African American GFR(CKD) 38 (>60 ml/min/1.73 sqM); Phosphorus 3.6 mg/dL (2.5-4.5); Total Protein 5.8 g/dL (6.3-8.2)
[2024-03-15 11:06] LABS: Glucose,Whole Blood 199 mg/dL (70-110)
[2024-03-15 12:01] LABS: Glucose,Whole Blood 211 mg/dL (70-110)
[2024-03-15] MEDS: ENOXAPARIN 40 MG/0.4 ML SYRINGE SQ SCH (12:06)
[2024-03-15 13:03] LABS: Glucose,Whole Blood 194 mg/dL (70-110)
[2024-03-15 13:05] LABS: Appearance,Urine Cloudy (Clear); Bacteria,Urine Occasional /hpf; Bilirubin,Urine 1+ (Negative); Blood,Urine Negative (Negative); Color,Urine Yellow; Glucose,Urine (UA) 3+ (Negative); Leukocyte Esterase,Urine Moderate (Negative); Mucus,Urine Rare /hpf; Nitrite,Urine Negative (Negative); PH, Urine 5.5 (5.0-8.0); Protein,Urine Trace (Negative); Specific Gravity,Urine 1.019 (1.001-1.035); Squamous Epithelial Cell,Urine 1 /hpf (0-4); WBC,Urine 36 /hpf (0-5)
[2024-03-15 13:12] LABS: Ketones,Urine 2+ (Negative)
[2024-03-15 14:10] LABS: Glucose,Whole Blood 180 mg/dL (70-110)
[2024-03-15 14:22] LABS: Glucose,Whole Blood 207 mg/dL (70-110)
[2024-03-15 15:08] LABS: Glucose,Whole Blood 233 mg/dL (70-110)
[2024-03-15] MEDS: MAGNESIUM SULFATE-D5W PMX 1 GM in DEXTROSE/WATER 1 100ML.BAG IVPB ONE (15:27)
--- NOTE | 2024-03-15 16:00 | P.CNPUL ---
History of Present Illness Consult date: 03/15/24 Chief complaint: Hyperglycemia History of present illness: On today's evaluation of 03/15/2024, the patient is being seen in consultation. She is a 73-year-old female patient came to the emergency department because of hyperglycemia. The patient is known to have diabetes mellitus type 1. She has not been consistently taking her Toujeo insulin. As such, she has noted the blood sugar has been elevated and the patient has been primarily using her short acting NovoLog insulin. As such, she came in with a mild component of anion gap metabolic acidosis. The patient's initial blood work showed a gap of 13 with a serum bicarb of 12. Her lactic acid level was at 5. Sodium levels at 126. Blood sugar was quite elevated at above 600 and potassium level is at 4.5. WC count was at 14.1 with hemoglobin 12.9 and a platelet count of 276. Overnight, the patient was given IV fluids. The patient was started on normal saline and currently she is on D5 half-normal citrate of 150 cc an hour. She is also on insulin drip which is running at 0.7 units an hour. She is also requiring potassium chloride to be run along with D5 water. Subsequent blood work including the most recent blood work on this patient that was done showed a gap of 8 with a serum bicarb of 15. Sodium is at 1 of 31 with a potassium level of 4.8. UA showing +3 glucose, +2 ketones, and elevated white cells. The patient's chest x-ray showed no acute process. Clinically, the patient is doing well. Producing adequate amount of urine output. She is on Lovenox for DVT prophylaxis. She has a BUN of 41 with a creatinine of 1.37 and she is recovering from her acute kidney injury. Noted the creatinine at time of admission was at 1.62. No focal neurological deficits. No fever. She has history of recurrent urine tract infections and the most recent urine culture that was obtained on 03/12/2024 showed Klebsiella pneumonia. Review of Systems Constitutional: Reports daytime sleepiness, Reports fatigue, Reports poor ap petite Eyes: bilateral blurred vision, denies as per HPI, denies bulging eye, denies decreased vision, denies diplopia, denies discharge, denies dry eye, denies irritation, denies itching, denies pain, denies photophobia, denies loss of peripheral vision, denies loss of vision, denies tunnel vision/blind spots Ears: deny: decreased hearing, ear discharge, earache, tinnitus Ears, nose, mouth and throat: Reports as per HPI Breasts: absent: as per HPI, change in shape, gynecomastia, masses, nipple discharge, pain, skin changes, swelling Cardiovascular: Reports as per HPI Respiratory: Reports as per HPI Gastrointestinal: Reports as per HPI Genitourinary: Reports as per HPI Menstruation: Reports as per HPI Musculoskeletal: Reports as per HPI Musculoskeletal: absent: ankle pain, ankle stiffness, ankle swelling, as per H PI, elbow pain, elbow stiffness, elbow swelling, foot pain, foot stiffness, foot swelling, hand pain, hand stiffness, hand swelling, hip pain, hip stiffness, hip swelling, knee pain, knee stiffness, knee swelling, shoulder pain, shoulder stiffness, shoulder swelling, wrist pain, wrist stiffness, wrist swelling Integumentary: Reports as per HPI Neurological: Reports numbness, Reports paresthesias, Reports weakness Psychiatric: Reports as per HPI, Reports confusion Endocrine: Reports fatigue, Reports high blood sugars, Reports polydipsia, Reports polyphagia, Reports polyuria Hematologic/Lymphatic: Reports as per HPI Allergic/Immunologic: Reports as per HPI Past Medical History Past Medical History: Heart Failure, Diabetes Mellitus, GI Bleed, Hypertension, Osteoarthritis (OA), Thyroid Disorder Additional Past Medical History / Comment(s): IDDM type 2 per pt, peripheral neuropathy bilateral hands and feet, arthritis bilateral hands, occasional low back pain, gout L great toe, hypothyroid, L great toe callus, lower GI bleed, diverticulosis, RLS. hep C History of Any Multi-Drug Resistant Organisms: None Reported Past Surgical History: Cholecystectomy, Hernia Repair, Joint Replacement Additional Past Surgical History / Comment(s): Umbilical hernia repair, kidney stone basketing and lithotripsy, total L knee arthroplasty, colonoscopy. Past Anesthesia/Blood Transfusion Reactions: Postoperative Nausea & Vomiting (PONV) Additional Past Anesthesia/Blood Transfusion Reaction / Comment(s): Ponv x1. Past Psychological History: Anxiety, Depression, Panic Disorder Additional Psychological History / Comment(s): Pt resides alone. She uses a cane, walker or wheelchair. Pt drives. Her daughters come daily. Pt manages her medications and blood glucoses. Smoking Status: Never smoker Past Alcohol Use History: Rare Additional Past Alcohol Use History / Comment(s): Pt states she recently started drinking one glass of wine a nite. Past Drug Use History: None Reported - Past Family History Father History Unknown: Yes Family Medical History: Diabetes Mellitus Additional Family Medical History / Comment(s): etoh Mother Family Medical History: Liver Disease Additional Family Medical History / Comment(s): etoh Brother(s) Additional Family Medical History / Comment(s): depression, etoh Medications and Allergies Home Medications Medication Instructions Recorded Confirmed Type Insulin Glargine,Hum.rec.anlog 55 units SQ HS 12/30/18 03/14/24 History [Toujeo Solostar] FLUoxetine HCL [Sarafem] 20 mg PO HS 11/17/23 03/14/24 History FLUoxetine HCL [Sarafem] 60 mg PO HS 11/17/23 03/14/24 History Gabapentin [Neurontin] 100 mg PO BID PRN 03/14/24 03/14/24 History INSULIN LISPRO (HumaLOG) [humaLOG] See Protocol SQ ACHS 03/14/24 03/14/24 History Levothyroxine Sodium 137 mcg PO DAILY 03/14/24 03/14/24 History rOPINIRole HCL [Requip] 1 mg PO BID 03/14/24 03/14/24 History traMADol HCL 50 mg PO Q6H PRN 03/14/24 03/14/24 History Allergies Allergy/AdvReac Type Severity Reaction Status Date / Time formaldehyde Allergy Itching Verified 11/17/23 10:42 nickel Allergy Itching Verified 11/17/23 10:42 quaternium Allergy Itching Verified 11/17/23 10:42 Sulfa (Sulfonamide Allergy Itching Verified 11/17/23 10:42 Antibiotics) Physical Exam Vitals: Vital Signs Temp Pulse Resp BP BP Pulse Ox 03/15/24 15:00 80 23 116/57 99 03/15/24 14:00 81 19 119/70 99 03/15/24 13:00 81 17 118/57 98 03/15/24 12:00 98.2 F 84 23 118/52 95 03/15/24 11:00 84 21 119/64 95 03/15/24 10:00 80 17 115/55 98 03/15/24 09:00 80 23 114/50 98 03/15/24 08:00 98.0 F 67 16 112/73 100 03/15/24 07:00 80 21 112/54 98 03/15/24 06:00 81 21 115/63 97 03/15/24 05:00 81 23 110/58 95 03/15/24 04:00 98.4 F 80 19 102/58 98 03/15/24 03:00 83 22 99/55 94 L 03/15/24 02:00 77 18 106/58 99 03/15/24 01:44 98.3 F 74 22 98/53 94 L 03/15/24 00:38 93 16 107/57 99 03/15/24 00:06 98.1 F 20 106/58 99 03/14/24 23:00 93 18 93/47 99 03/14/24 22:00 92 18 117/70 97 03/14/24 21:00 84 16 110/77 96 03/14/24 20:00 65 16 107/59 98 03/14/24 19:15 96 22 126/52 96 03/14/24 17:36 97.8 F 110 H 18 132/72 96 Intake and Output 03/15/24 03/15/24 03/15/24 06:59 14:59 22:59 Intake Total 298.323 4164.696 Output Total 450 280 Balance 525.665 929.696 Intake: IV 900 1209 D5-0.45% NaCl with KCl 900 1209 20Meq/l 1,000 ml @ 150 mls/hr IV .Q6H40M [facility] Rx# :[id number] Intake, IV Titration 75.665 0.696 Amount Insulin Regular 100 unit 75.665 0.696 In Sodium Chloride 0.9% 100 ml @ 0.1 UNITS/KG/HR 11.591 mls/hr IV .Q8H43M [facility] Rx#:[id number] Output: Urine 450 280 Straight 450 Other: Voiding Method External Catheter External Catheter Weight 118.4 kg 118.4 kg Patient is awake and alert currently on room air oxygen Head exam was generally normal. There was no scleral icterus or corneal arcus. Mucous membranes were moist. Neck was supple and without jugular venous distension, thyromegaly, or carotid bruits. Carotids were easily palpable bilaterally. There was no adenopathy. Lungs were clear to auscultation and percussion, and with normal diaphragmatic excursion. No wheezes or rales were noted. Cardiac exam revealed the PMI to be normally situated and sized. The rhythm was regular and no extrasystoles were noted during several minutes of auscultation. The first and second heart sounds were normal and physiologic splitting of the second heart sound was noted. There were no murmurs, rubs, clicks, or gallops. Abdominal exam revealed normal bowel sounds. The abdomen was soft, non-tender, and without masses, organomegaly, or appreciable enlargement of the abdominal aorta. Examination of the extremities revealed easily palpable radial, femoral and pedal pulses. There was no cyanosis, clubbing or edema. Examination of the skin revealed no evidence of significant rashes, suspicious appearing nevi or other concerning lesions. Neurologically awake and alert and there is no focal neurological deficits. Results - Laboratory Findings CBC and BMP: 03/14/24 17:50 03/15/24 09:28 PT/INR, D-dimer PT 10.5 sec (10.0-12.5) 03/14/24 17:50 INR 1.0 (<1.2) 03/14/24 17:50 Abnormal lab findings: Abnormal Labs 03/14/24 03/14/24 03/14/24 17:42 17:50 17:50 WBC 14.1 H MCV 104.8 H MCHC 29.0 L Neutrophils # 12.9 H Lymphocytes # 0.6 L VBG pH VBG pCO2 VBG HCO3 Sodium 131 L Potassium 5.6 H Chloride Carbon Dioxide <5 L* BUN 40 H Creatinine 1.62 H Glucose 800 H* POC Glucose (mg/dL) >600 H* Plasma Lactic Acid Guicho Phosphorus 6.1 H Alkaline Phosphatase 127 H Total Protein Albumin Urine Appearance Urine Protein Urine Glucose (UA) Urine Ketones Urine Bilirubin Ur Leukocyte Esterase Urine WBC Urine Bacteria Urine Mucus 03/14/24 03/14/24 03/14/24 17:50 19:57 19:58 WBC MCV MCHC Neutrophils # Lymphocytes # VBG pH 7.11 L* VBG pCO2 27 L VBG HCO3 9 L* Sodium Potassium Chloride Carbon Dioxide BUN Creatinine Glucose POC Glucose (mg/dL) >600 H* Plasma Lactic Acid Guicho 4.3 H* Phosphorus Alkaline Phosphatase Total Protein Albumin Urine Appearance Urine Protein Urine Glucose (UA) Urine Ketones Urine Bilirubin Ur Leukocyte Esterase Urine WBC Urine Bacteria Urine Mucus 03/14/24 03/14/24 03/14/24 20:57 22:00 22:47 WBC MCV MCHC Neutrophils # Lymphocytes # VBG pH VBG pCO2 VBG HCO3 Sodium 126 L Potassium Chloride Carbon Dioxide 12 L BUN 44 H Creatinine 1.54 H Glucose 331 H POC Glucose (mg/dL) >600 H* 442 H Plasma Lactic Acid Guicho Phosphorus Alkaline Phosphatase Total Protein Albumin Urine Appearance Urine Protein Urine Glucose (UA) Urine Ketones Urine Bilirubin Ur Leukocyte Esterase Urine WBC Urine Bacteria Urine Mucus 03/14/24 03/14/24 03/14/24 22:47 22:50 23:17 WBC MCV MCHC Neutrophils # Lymphocytes # VBG pH VBG pCO2 VBG HCO3 Sodium Potassium Chloride Carbon Dioxide BUN Creatinine Glucose POC Glucose (mg/dL) 336 H Plasma Lactic Acid Guicho 5.0 H* Phosphorus Alkaline Phosphatase Total Protein Albumin Urine Appearance Urine Protein Trace H Urine Glucose (UA) 4+ H Urine Ketones 3+ H Urine Bilirubin 1+ H Ur Leukocyte Esterase Urine WBC Urine Bacteria Urine Mucus 03/15/24 03/15/24 03/15/24 00:01 01:08 01:43 WBC MCV MCHC Neutrophils # Lymphocytes # VBG pH VBG pCO2 VBG HCO3 Sodium Potassium Chloride Carbon Dioxide BUN Creatinine Glucose POC Glucose (mg/dL) 221 H 157 H 123 H Plasma Lactic Acid Guicho Phosphorus Alkaline Phosphatase Total Protein Albumin Urine Appearance Urine Protein Urine Glucose (UA) Urine Ketones Urine Bilirubin Ur Leukocyte Esterase Urine WBC Urine Bacteria Urine Mucus 03/15/24 03/15/24 03/15/24 05:27 06:02 07:00 WBC MCV MCHC Neutrophils # Lymphocytes # VBG pH VBG pCO2 VBG HCO3 Sodium 131 L Potassium Chloride 109 H Carbon Dioxide 15 L BUN 42 H Creatinine 1.46 H Glucose 107 H POC Glucose (mg/dL) 116 H 117 H Plasma Lactic Acid Guicho Phosphorus Alkaline Phosphatase Total Protein 5.8 L Albumin 3.4 L Urine Appearance Urine Protein Urine Glucose (UA) Urine Ketones Urine Bilirubin Ur Leukocyte Esterase Urine WBC Urine Bacteria Urine Mucus 03/15/24 03/15/24 03/15/24 07:55 09:10 09:28 WBC MCV MCHC Neutrophils # Lymphocytes # VBG pH VBG pCO2 VBG HCO3 Sodium 131 L Potassium Chloride 108 H Carbon Dioxide 15 L BUN 41 H Creatinine 1.37 H Glucose 191 H POC Glucose (mg/dL) 131 H 180 H Plasma Lactic Acid Guicho Phosphorus Alkaline Phosphatase Total Protein 5.8 L Albumin 3.3 L Urine Appearance Urine Protein Urine Glucose (UA) Urine Ketones Urine Bilirubin Ur Leukocyte Esterase Urine WBC Urine Bacteria Urine Mucus 03/15/24 03/15/24 03/15/24 10:05 11:05 11:59 WBC MCV MCHC Neutrophils # Lymphocytes # VBG pH VBG pCO2 VBG HCO3 Sodium Potassium Chloride Carbon Dioxide BUN Creatinine Glucose POC Glucose (mg/dL) 224 H 199 H 211 H Plasma Lactic Acid Guicho Phosphorus Alkaline Phosphatase Total Protein Albumin Urine Appearance Urine Protein Urine Glucose (UA) Urine Ketones Urine Bilirubin Ur Leukocyte Esterase Urine WBC Urine Bacteria Urine Mucus 03/15/24 03/15/24 03/15/24 12:40 13:02 14:07 WBC MCV MCHC Neutrophils # Lymphocytes # VBG pH VBG pCO2 VBG HCO3 Sodium Potassium Chloride Carbon Dioxide BUN Creatinine Glucose POC Glucose (mg/dL) 194 H 180 H Plasma Lactic Acid Guicho Phosphorus Alkaline Phosphatase Total Protein Albumin Urine Appearance Cloudy H Urine Protein Trace H Urine Glucose (UA) 3+ H Urine Ketones 2+ H Urine Bilirubin 1+ H Ur Leukocyte Esterase Moderate H Urine WBC 36 H Urine Bacteria Occasional H Urine Mucus Rare H 03/15/24 03/15/24 14:21 15:07 WBC MCV MCHC Neutrophils # Lymphocytes # VBG pH VBG pCO2 VBG HCO3 Sodium Potassium Chloride Carbon Dioxide BUN Creatinine Glucose POC Glucose (mg/dL) 207 H 233 H Plasma Lactic Acid Guicho Phosphorus Alkaline Phosphatase Total Protein Albumin Urine Appearance Urine Protein Urine Glucose (UA) Urine Ketones Urine Bilirubin Ur Leukocyte Esterase Urine WBC Urine Bacteria Urine Mucus - Diagnostic Findings Chest x-ray: image reviewed Assessment and Plan Plan: Acute DKA with severe anion gap metabolic acidosis,/related to inconsistent intake of insulin the patient has a mild anion gap metabolic acidosis, improving Severe dehydration, improving Anion gap Metabolic acidosis due to acetone and lactate, secondary to above Acute kidney injury secondary to above Type 1 diabetes mellitus Diabetic peripheral neuropathy Degenerative arthritis Gout Diverticulosis Hypertension History of nephrolithiasis and kidney stones Recurrent urinary tract infections in the urine culture from 03/12/2024 is consistent with left-sided pneumonia Hypothyroidism History of diverticulosis Previous history of GI bleed History of hepatitis C Plan Patient is currently on room air oxygen insulin drip per DKA protocol, the patient remains on insulin drip and the most recent gap is closed at the serum bicarb is still at 15. Awaiting another set of electrolytes. Will likely transition this patient to long-acting insulin by afternoon or evening IV Rocephin regarding Klebsiella pneumonia urinary tract infection Monitor blood sugars and electrolytes Lovenox for DVT prophylaxis Resume home medications Titrate oxygen flow to maintain saturation above 90%
[2024-03-15 16:05] LABS: Glucose,Whole Blood 256 mg/dL (70-110)
--- NOTE | 2024-03-15 16:31 | P.HPIM ---
History of Present Illness H&P Date: 03/15/24 Chief Complaint: Hyperglycemia this is a 73-year-old female recently discharged November 20, 2023 for similar presentation of acute DKA,admitted with acute diabetic ketoacidosis with metabolic acidosis, severe dehydration with acute renal failure.reported she became confused and was not taking her insulins correctly. became hyperglycemic and presented to the ER via EMS. Patient is on both Toujeo and Humalog insulins. on admission glucose level was 800. Received IV fluid bolus of 1.5 L. WBCs 14.1, lactic acid 4.3, bicarb less than 5 and anion gap was not able to be calculated .acetone positive .VBG reported pH of 7.11, pCO2 27 and bicarb 9 .lactic acidosis resolved with IV fluid resuscitation, currently 0.8. Anion gap 8, bicarb 15. denies cough or congestion. Renal function improving, BUN 41, creatinine 1.37. Sodium 126 , increased to 131 .denies chest pain, palpitations or shortness of breath. Maintaining O2 sats in the mid 90s on room air. Chest x-ray reported no acute process. Urine culture from 03/12/2024 reported Klebsiella pneumonia, UA reported negative nitrates, +3 glucose, +2 ketones, moderate leukocytes. Review of Systems ROS Statement: Those systems with pertinent positive or pertinent negative responses have been documented in the HPI. ROS Other: All systems not noted in ROS Statement are negative. Past Medical History Past Medical History: Heart Failure, Diabetes Mellitus, GI Bleed, Hypertension, Osteoarthritis (OA), Thyroid Disorder Additional Past Medical History / Comment(s): IDDM type 2 per pt, peripheral neuropathy bilateral hands and feet, arthritis bilateral hands, occasional low back pain, gout L great toe, hypothyroid, L great toe callus, lower GI bleed, diverticulosis, RLS. hep C History of Any Multi-Drug Resistant Organisms: None Reported Past Surgical History: Cholecystectomy, Hernia Repair, Joint Replacement Additional Past Surgical History / Comment(s): Umbilical hernia repair, kidney stone basketing and lithotripsy, total L knee arthroplasty, colonoscopy. Past Anesthesia/Blood Transfusion Reactions: Postoperative Nausea & Vomiting (PONV) Additional Past Anesthesia/Blood Transfusion Reaction / Comment(s): Ponv x1. Past Psychological History: Anxiety, Depression, Panic Disorder Additional Psychological History / Comment(s): Pt resides alone. She uses a cane, walker or wheelchair. Pt drives. Her daughters come daily. Pt manages her medications and blood glucoses. Smoking Status: Never smoker Past Alcohol Use History: Rare Additional Past Alcohol Use History / Comment(s): Pt states she recently started drinking one glass of wine a nite. Past Drug Use History: None Reported - Past Family History Father History Unknown: Yes Family Medical History: Diabetes Mellitus Additional Family Medical History / Comment(s): etoh Mother Family Medical History: Liver Disease Additional Family Medical History / Comment(s): etoh Brother(s) Additional Family Medical History / Comment(s): depression, etoh Medications and Allergies Home Medications Medication Instructions Recorded Confirmed Type Insulin Glargine,Hum.rec.anlog 55 units SQ HS 12/30/18 03/14/24 History [Toujeo Solostar] FLUoxetine HCL [Sarafem] 20 mg PO HS 11/17/23 03/14/24 History FLUoxetine HCL [Sarafem] 60 mg PO HS 11/17/23 03/14/24 History Gabapentin [Neurontin] 100 mg PO BID PRN 03/14/24 03/14/24 History INSULIN LISPRO (HumaLOG) [humaLOG] See Protocol SQ ACHS 03/14/24 03/14/24 History Levothyroxine Sodium 137 mcg PO DAILY 03/14/24 03/14/24 History rOPINIRole HCL [Requip] 1 mg PO BID 03/14/24 03/14/24 History traMADol HCL 50 mg PO Q6H PRN 03/14/24 03/14/24 History Allergies Allergy/AdvReac Type Severity Reaction Status Date / Time formaldehyde Allergy Itching Verified 11/17/23 10:42 nickel Allergy Itching Verified 11/17/23 10:42 quaternium Allergy Itching Verified 11/17/23 10:42 Sulfa (Sulfonamide Allergy Itching Verified 11/17/23 10:42 Antibiotics) Physical Exam Vitals: Vital Signs Temp Pulse Resp BP BP Pulse Ox 03/15/24 12:00 98.2 F 84 23 118/52 95 03/15/24 11:00 84 21 119/64 95 03/15/24 10:00 80 17 115/55 98 03/15/24 09:00 80 23 114/50 98 03/15/24 08:00 98.0 F 67 16 112/73 100 03/15/24 07:00 80 21 112/54 98 03/15/24 06:00 81 21 115/63 97 03/15/24 05:00 81 23 110/58 95 03/15/24 04:00 98.4 F 80 19 102/58 98 03/15/24 03:00 83 22 99/55 94 L 03/15/24 02:00 77 18 106/58 99 03/15/24 01:44 98.3 F 74 22 98/53 94 L 03/15/24 00:38 93 16 107/57 99 03/15/24 00:06 98.1 F 20 106/58 99 03/14/24 23:00 93 18 93/47 99 03/14/24 22:00 92 18 117/70 97 03/14/24 21:00 84 16 110/77 96 03/14/24 20:00 65 16 107/59 98 03/14/24 19:15 96 22 126/52 96 03/14/24 17:36 97.8 F 110 H 18 132/72 96 Intake and Output 03/14/24 03/15/24 03/15/24 22:59 06:59 14:59 Intake Total 975.665 900.696 Output Total 450 250 Balance 525.665 650.696 Intake: IV 900 900 D5-0.45% NaCl with KCl 900 900 20Meq/l 1,000 ml @ 150 mls/hr IV .Q6H40M JAYV Rx# :[id number] Intake, IV Titration 75.665 0.696 Amount Insulin Regular 100 unit 75.665 0.696 In Sodium Chloride 0.9% 100 ml @ 0.1 UNITS/KG/HR 11.591 mls/hr IV .Q8H43M JAVY Rx#:[id number] Output: Urine 450 250 Straight 450 Other: Voiding Method External Catheter External Catheter Weight 114.759 kg 118.4 kg 118.4 kg VITAL SIGNS: [As above] GENERAL: Alert and oriented x 3, sitting up in chair, no acute distress. HEENT: Atraumatic, normocephalic conjunctivae normal. eyes normal. NECK: Supple, no JVD. CARDIOVASCULAR: S1, S2 regular.. No murmur RESPIRATION: Unlabored, equal air entry, CTA, bibasilar lungs diminished. ABDOMEN: Soft, nondistended, nontender . No guarding. Positive bowel sounds LEGS: No edema. no swelling. NERVOUS SYSTEM: Cranial N 2-12 grossly normal. No focal deficits. Strength and sensation grossly intact. Skin: Warm and dry, no rash. Results CBC & Chem 7: 03/16/24 04:59 03/16/24 14:24 Labs: Abnormal Lab Results - Last 24 Hours (Table) 03/14/24 03/14/24 03/14/24 Range/Units 17:42 17:50 17:50 WBC 14.1 H (3.8-10.6) k/uL MCV 104.8 H (80.0-100.0) fL MCHC 29.0 L (31.0-37.0) g/dL Neutrophils # 12.9 H (1.3-7.7) k/uL Lymphocytes # 0.6 L (1.0-4.8) k/uL VBG pH (7.31-7.41) VBG pCO2 (37-51) mmHg VBG HCO3 (24-28) mmol/L Sodium 131 L (137-145) mmol/L Potassium 5.6 H (3.5-5.1) mmol/L Chloride (98-107) mmol/L Carbon Dioxide <5 L* (22-30) mmol/L BUN 40 H (7-17) mg/dL Creatinine 1.62 H (0.52-1.04) mg/dL Glucose 800 H* (74-99) mg/dL POC Glucose (mg/dL) >600 H* (70-110) mg/dL Plasma Lactic Acid Guicho (0.7-2.0) mmol/L Phosphorus 6.1 H (2.5-4.5) mg/dL Alkaline Phosphatase 127 H (38-126) U/L Total Protein (6.3-8.2) g/dL Albumin (3.5-5.0) g/dL Urine Appearance (Clear) Urine Protein (Negative) Urine Glucose (UA) (Negative) Urine Ketones (Negative) Urine Bilirubin (Negative) Ur Leukocyte Esterase (Negative) Urine WBC (0-5) /hpf Urine Bacteria (None) /hpf Urine Mucus (None) /hpf 03/14/24 03/14/24 03/14/24 Range/Units 17:50 19:57 19:58 WBC (3.8-10.6) k/uL MCV (80.0-100.0) fL MCHC (31.0-37.0) g/dL Neutrophils # (1.3-7.7) k/uL Lymphocytes # (1.0-4.8) k/uL VBG pH 7.11 L* (7.31-7.41) VBG pCO2 27 L (37-51) mmHg VBG HCO3 9 L* (24-28) mmol/L Sodium (137-145) mmol/L Potassium (3.5-5.1) mmol/L Chloride (98-107) mmol/L Carbon Dioxide (22-30) mmol/L BUN (7-17) mg/dL Creatinine (0.52-1.04) mg/dL Glucose (74-99) mg/dL POC Glucose (mg/dL) >600 H* (70-110) mg/dL Plasma Lactic Acid Guicho 4.3 H* (0.7-2.0) mmol/L Phosphorus (2.5-4.5) mg/dL Alkaline Phosphatase (38-126) U/L Total Protein (6.3-8.2) g/dL Albumin (3.5-5.0) g/dL Urine Appearance (Clear) Urine Protein (Negative) Urine Glucose (UA) (Negative) Urine Ketones (Negative) Urine Bilirubin (Negative) Ur Leukocyte Esterase (Negative) Urine WBC (0-5) /hpf Urine Bacteria (None) /hpf Urine Mucus (None) /hpf 03/14/24 03/14/24 03/14/24 Range/Units 20:57 22:00 22:47 WBC (3.8-10.6) k/uL MCV (80.0-100.0) fL MCHC (31.0-37.0) g/dL Neutrophils # (1.3-7.7) k/uL Lymphocytes # (1.0-4.8) k/uL VBG pH (7.31-7.41) VBG pCO2 (37-51) mmHg VBG HCO3 (24-28) mmol/L Sodium 126 L (137-145) mmol/L Potassium (3.5-5.1) mmol/L Chloride (98-107) mmol/L Carbon Dioxide 12 L (22-30) mmol/L BUN 44 H (7-17) mg/dL Creatinine 1.54 H (0.52-1.04) mg/dL Glucose 331 H (74-99) mg/dL POC Glucose (mg/dL) >600 H* 442 H (70-110) mg/dL Plasma Lactic Acid Guicho (0.7-2.0) mmol/L Phosphorus (2.5-4.5) mg/dL Alkaline Phosphatase (38-126) U/L Total Protein (6.3-8.2) g/dL Albumin (3.5-5.0) g/dL Urine Appearance (Clear) Urine Protein (Negative) Urine Glucose (UA) (Negative) Urine Ketones (Negative) Urine Bilirubin (Negative) Ur Leukocyte Esterase (Negative) Urine WBC (0-5) /hpf Urine Bacteria (None) /hpf Urine Mucus (None) /hpf 03/14/24 03/14/24 03/14/24 Range/Units 22:47 22:50 23:17 WBC (3.8-10.6) k/uL MCV (80.0-100.0) fL MCHC (31.0-37.0) g/dL Neutrophils # (1.3-7.7) k/uL Lymphocytes # (1.0-4.8) k/uL VBG pH (7.31-7.41) VBG pCO2 (37-51) mmHg VBG HCO3 (24-28) mmol/L Sodium (137-145) mmol/L Potassium (3.5-5.1) mmol/L Chloride (98-107) mmol/L Carbon Dioxide (22-30) mmol/L BUN (7-17) mg/dL Creatinine (0.52-1.04) mg/dL Glucose (74-99) mg/dL POC Glucose (mg/dL) 336 H (70-110) mg/dL Plasma Lactic Acid Guicho 5.0 H* (0.7-2.0) mmol/L Phosphorus (2.5-4.5) mg/dL Alkaline Phosphatase (38-126) U/L Total Protein (6.3-8.2) g/dL Albumin (3.5-5.0) g/dL Urine Appearance (Clear) Urine Protein Trace H (Negative) Urine Glucose (UA) 4+ H (Negative) Urine Ketones 3+ H (Negative) Urine Bilirubin 1+ H (Negative) Ur Leukocyte Esterase (Negative) Urine WBC (0-5) /hpf Urine Bacteria (None) /hpf Urine Mucus (None) /hpf 03/15/24 03/15/24 03/15/24 Range/Units 00:01 01:08 01:43 WBC (3.8-10.6) k/uL MCV (80.0-100.0) fL MCHC (31.0-37.0) g/dL Neutrophils # (1.3-7.7) k/uL Lymphocytes # (1.0-4.8) k/uL VBG pH (7.31-7.41) VBG pCO2 (37-51) mmHg VBG HCO3 (24-28) mmol/L Sodium (137-145) mmol/L Potassium (3.5-5.1) mmol/L Chloride (98-107) mmol/L Carbon Dioxide (22-30) mmol/L BUN (7-17) mg/dL Creatinine (0.52-1.04) mg/dL Glucose (74-99) mg/dL POC Glucose (mg/dL) 221 H 157 H 123 H (70-110) mg/dL Plasma Lactic Acid Guicho (0.7-2.0) mmol/L Phosphorus (2.5-4.5) mg/dL Alkaline Phosphatase (38-126) U/L Total Protein (6.3-8.2) g/dL Albumin (3.5-5.0) g/dL Urine Appearance (Clear) Urine Protein (Negative) Urine Glucose (UA) (Negative) Urine Ketones (Negative) Urine Bilirubin (Negative) Ur Leukocyte Esterase (Negative) Urine WBC (0-5) /hpf Urine Bacteria (None) /hpf Urine Mucus (None) /hpf 03/15/24 03/15/24 03/15/24 Range/Units 05:27 06:02 07:00 WBC (3.8-10.6) k/uL MCV (80.0-100.0) fL MCHC (31.0-37.0) g/dL Neutrophils # (1.3-7.7) k/uL Lymphocytes # (1.0-4.8) k/uL VBG pH (7.31-7.41) VBG pCO2 (37-51) mmHg VBG HCO3 (24-28) mmol/L Sodium 131 L (137-145) mmol/L Potassium (3.5-5.1) mmol/L Chloride 109 H (98-107) mmol/L Carbon Dioxide 15 L (22-30) mmol/L BUN 42 H (7-17) mg/dL Creatinine 1.46 H (0.52-1.04) mg/dL Glucose 107 H (74-99) mg/dL POC Glucose (mg/dL) 116 H 117 H (70-110) mg/dL Plasma Lactic Acid Guicho (0.7-2.0) mmol/L Phosphorus (2.5-4.5) mg/dL Alkaline Phosphatase (38-126) U/L Total Protein 5.8 L (6.3-8.2) g/dL Albumin 3.4 L (3.5-5.0) g/dL Urine Appearance (Clear) Urine Protein (Negative) Urine Glucose (UA) (Negative) Urine Ketones (Negative) Urine Bilirubin (Negative) Ur Leukocyte Esterase (Negative) Urine WBC (0-5) /hpf Urine Bacteria (None) /hpf Urine Mucus (None) /hpf 03/15/24 03/15/24 03/15/24 Range/Units 07:55 09:10 09:28 WBC (3.8-10.6) k/uL MCV (80.0-100.0) fL MCHC (31.0-37.0) g/dL Neutrophils # (1.3-7.7) k/uL Lymphocytes # (1.0-4.8) k/uL VBG pH (7.31-7.41) VBG pCO2 (37-51) mmHg VBG HCO3 (24-28) mmol/L Sodium 131 L (137-145) mmol/L Potassium (3.5-5.1) mmol/L Chloride 108 H (98-107) mmol/L Carbon Dioxide 15 L (22-30) mmol/L BUN 41 H (7-17) mg/dL Creatinine 1.37 H (0.52-1.04) mg/dL Glucose 191 H (74-99) mg/dL POC Glucose (mg/dL) 131 H 180 H (70-110) mg/dL Plasma Lactic Acid Guicho (0.7-2.0) mmol/L Phosphorus (2.5-4.5) mg/dL Alkaline Phosphatase (38-126) U/L Total Protein 5.8 L (6.3-8.2) g/dL Albumin 3.3 L (3.5-5.0) g/dL Urine Appearance (Clear) Urine Protein (Negative) Urine Glucose (UA) (Negative) Urine Ketones (Negative) Urine Bilirubin (Negative) Ur Leukocyte Esterase (Negative) Urine WBC (0-5) /hpf Urine Bacteria (None) /hpf Urine Mucus (None) /hpf 03/15/24 03/15/24 03/15/24 Range/Units 10:05 11:05 11:59 WBC (3.8-10.6) k/uL MCV (80.0-100.0) fL MCHC (31.0-37.0) g/dL Neutrophils # (1.3-7.7) k/uL Lymphocytes # (1.0-4.8) k/uL VBG pH (7.31-7.41) VBG pCO2 (37-51) mmHg VBG HCO3 (24-28) mmol/L Sodium (137-145) mmol/L Potassium (3.5-5.1) mmol/L Chloride (98-107) mmol/L Carbon Dioxide (22-30) mmol/L BUN (7-17) mg/dL Creatinine (0.52-1.04) mg/dL Glucose (74-99) mg/dL POC Glucose (mg/dL) 224 H 199 H 211 H (70-110) mg/dL Plasma Lactic Acid Guicho (0.7-2.0) mmol/L Phosphorus (2.5-4.5) mg/dL Alkaline Phosphatase (38-126) U/L Total Protein (6.3-8.2) g/dL Albumin (3.5-5.0) g/dL Urine Appearance (Clear) Urine Protein (Negative) Urine Glucose (UA) (Negative) Urine Ketones (Negative) Urine Bilirubin (Negative) Ur Leukocyte Esterase (Negative) Urine WBC (0-5) /hpf Urine Bacteria (None) /hpf Urine Mucus (None) /hpf 03/15/24 03/15/24 Range/Units 12:40 13:02 WBC (3.8-10.6) k/uL MCV (80.0-100.0) fL MCHC (31.0-37.0) g/dL Neutrophils # (1.3-7.7) k/uL Lymphocytes # (1.0-4.8) k/uL VBG pH (7.31-7.41) VBG pCO2 (37-51) mmHg VBG HCO3 (24-28) mmol/L Sodium (137-145) mmol/L Potassium (3.5-5.1) mmol/L Chloride (98-107) mmol/L Carbon Dioxide (22-30) mmol/L BUN (7-17) mg/dL Creatinine (0.52-1.04) mg/dL Glucose (74-99) mg/dL POC Glucose (mg/dL) 194 H (70-110) mg/dL Plasma Lactic Acid Guicho (0.7-2.0) mmol/L Phosphorus (2.5-4.5) mg/dL Alkaline Phosphatase (38-126) U/L Total Protein (6.3-8.2) g/dL Albumin (3.5-5.0) g/dL Urine Appearance Cloudy H (Clear) Urine Protein Trace H (Negative) Urine Glucose (UA) 3+ H (Negative) Urine Ketones 2+ H (Negative) Urine Bilirubin 1+ H (Negative) Ur Leukocyte Esterase Moderate H (Negative) Urine WBC 36 H (0-5) /hpf Urine Bacteria Occasional H (None) /hpf Urine Mucus Rare H (None) /hpf Thrombosis Risk Factor Assmnt - Choose All That Apply Any of the Below Risk Factors Present?: Yes Each Factor Represents 1 point: Medical pt on bed rest, Varicose veins Other Risk Factors: Yes Each Risk Factor Represents 3 Points: Age 75 years or older Other congenital or acquired thrombophilia - If yes, enter type in comment: No Thrombosis Risk Factor Assessment Total Risk Factor Score: 5 Thrombosis Risk Factor Assessment Level: High Risk Assessment and Plan Assessment: Acute diabetic ketoacidosis, improving Anion gap metabolic acidosis, both acetone and lactic ,secondary to the above, improving Uncontrolled diabetes mellitus type I Dehydration Acute UTI, urine culture 03/12/2024 ,reporting Klebsiella pneumoniae Alcohol consumption, drinks 1 glass of wine per night, documented in computer H&P. Patient reports no wine, occasional beer. Acute leukocytosis, resolved Acute renal failure, secondary to the above Diabetic peripheral neuropathy Benign essential hypertension Nephrolithiasis Hypothyroidism History of anxiety, depression, panic disorder History of hepatitis C Plan: Continue on current medication resume ,monitoring and symptomatic treatment. Maintained on DKA protocol, transitioning to long-acting insulin soon .continue on IV antibiotics of ceftriaxone for UTI. PPI in place for GI prophylaxis, Lovenox in place for DVT prophylaxis. The impression and plan of care has been dictated as directed. : I performed a history and examination of this patient, discussed the same with the dictator. I agree with the dictator's note ,documented as a scribe. Any additional findings or plans will be noted.
[2024-03-15 17:02] LABS: Glucose,Whole Blood 253 mg/dL (70-110)
[2024-03-15 18:01] LABS: Glucose,Whole Blood 261 mg/dL (70-110)
[2024-03-15 19:08] LABS: Glucose,Whole Blood 212 mg/dL (70-110)
[2024-03-15 20:09] LABS: Glucose,Whole Blood 150 mg/dL (70-110)
[2024-03-15 21:02] LABS: Glucose,Whole Blood 131 mg/dL (70-110)
[2024-03-15 22:07] LABS: Glucose,Whole Blood 194 mg/dL (70-110)
[2024-03-15 23:02] LABS: Glucose,Whole Blood 218 mg/dL (70-110)
[2024-03-16 00:09] LABS: Glucose,Whole Blood 226 mg/dL (70-110)
[2024-03-16 00:56] LABS: Glucose,Whole Blood 213 mg/dL (70-110)
[2024-03-16 02:16] LABS: Glucose,Whole Blood 239 mg/dL (70-110)
[2024-03-16 03:20] LABS: Glucose,Whole Blood 239 mg/dL (70-110)
[2024-03-16 04:28] LABS: Glucose,Whole Blood 248 mg/dL (70-110)
[2024-03-16 05:13] LABS: Basophils % (A) 0 %; Eosinophils # (A) 0.1 k/uL (0-0.7); Eosinophils % (A) 1 %; HGB 12.3 gm/dL (11.4-16.0); Hypochromasia Slight; Lymphocytes # (A) 1.2 k/uL (1.0-4.8); Lymphocytes % (A) 15 %; MCH 31.1 pg (25.0-35.0); MCHC 32.4 g/dL (31.0-37.0); Mean Platelet Volume 9.1; Monocytes # (A) 0.6 k/uL (0-1.0); Monocytes % (A) 7 %; Neutrophils # (A) 6.2 k/uL (1.3-7.7); Neutrophils % (A) 76 %; Platelet Count 196 k/uL (150-450); RBC 3.96 m/uL (3.80-5.40); RDW 13.3 % (11.5-15.5); WBC 8.1 k/uL (3.8-10.6)
[2024-03-16 05:38] LABS: African American GFR (CKD) 58 (>60 ml/min/1.73 sqM); Anion Gap 8 mmol/L; Blood Urea Nitrogen 27 mg/dL (7-17); Calcium 9.1 mg/dL (8.4-10.2); Carbon Dioxide 17 mmol/L (22-30); Chloride 107 mmol/L (98-107); Glucose 220 mg/dL (74-99); Magnesium 1.8 mg/dL (1.6-2.3); Non-African American GFR(CKD) 50 (>60 ml/min/1.73 sqM); Potassium 4.6 mmol/L (3.5-5.1); Sodium 132 mmol/L (137-145)
[2024-03-16 05:46] LABS: MCV 95.9 fL (80.0-100.0)
[2024-03-16] MEDS ORDERED: Magnesium Replacement Protocol 1 EACH MISC MISCELLANE PRN (05:46)
[2024-03-16] MEDS: MAGNESIUM SULFATE-D5W PMX 1 GM in DEXTROSE/WATER 1 100ML.BAG IVPB ONE (06:04)
[2024-03-16] MEDS: PANTOPRAZOLE 40 MG TABLET PO SCH (06:05)
[2024-03-16 06:20] LABS: Glucose,Whole Blood 165 mg/dL (70-110)
[2024-03-16 07:06] LABS: Glucose,Whole Blood 151 mg/dL (70-110)
[2024-03-16 08:06] LABS: Glucose,Whole Blood 171 mg/dL (70-110)
[2024-03-16 09:25] LABS: Glucose,Whole Blood 216 mg/dL (70-110)
[2024-03-16 10:04] LABS: African American GFR (CKD) 66 (>60 ml/min/1.73 sqM); Anion Gap 6 mmol/L; Blood Urea Nitrogen 24 mg/dL (7-17); Carbon Dioxide 16 mmol/L (22-30); Chloride 108 mmol/L (98-107); Glucose 223 mg/dL (74-99); Non-African American GFR(CKD) 58 (>60 ml/min/1.73 sqM); Phosphorus 2.5 mg/dL (2.5-4.5); Potassium 4.7 mmol/L (3.5-5.1); Sodium 130 mmol/L (137-145)
[2024-03-16 10:09] LABS: Glucose,Whole Blood 223 mg/dL (70-110)
[2024-03-16 11:43] LABS: Glucose,Whole Blood 198 mg/dL (70-110)
--- NOTE | 2024-03-16 13:25 | P.PN ---
Subjective Progress Note Date: 03/16/24 On today's evaluation of 03/15/2024, the patient is being seen in consultation. She is a 73-year-old female patient came to the emergency department because of hyperglycemia. The patient is known to have diabetes mellitus type 1. She has not been consistently taking her Toujeo insulin. As such, she has noted the blood sugar has been elevated and the patient has been primarily using her short acting NovoLog insulin. As such, she came in with a mild component of anion gap metabolic acidosis. The patient's initial blood work showed a gap of 13 with a serum bicarb of 12. Her lactic acid level was at 5. Sodium levels at 126. Blood sugar was quite elevated at above 600 and potassium level is at 4.5. WC count was at 14.1 with hemoglobin 12.9 and a platelet count of 276. Overnight, the patient was given IV fluids. The patient was started on normal saline and currently she is on D5 half-normal citrate of 150 cc an hour. She is also on insulin drip which is running at 0.7 units an hour. She is also requiring potassium chloride to be run along with D5 water. Subsequent blood work inclu ding the most recent blood work on this patient that was done showed a gap of 8 with a serum bicarb of 15. Sodium is at 1 of 31 with a potassium level of 4.8. UA showing +3 glucose, +2 ketones, and elevated white cells. The patient's chest x-ray showed no acute process. Clinically, the patient is doing well. Producing adequate amount of urine output. She is on Lovenox for DVT prophylaxis. She has a BUN of 41 with a creatinine of 1.37 and she is recovering from her acute kidney injury. Noted the creatinine at time of admission was at 1.62. No focal neurological deficits. No fever. She has history of recurrent urine tract infections and the most recent urine culture that was obtained on 03/12/2024 showed Klebsiella pneumonia. 03/16/2024, the patient is awake and alert. She was able to have a small breakfast this morning. Follow-up blood work from today shows a anion gap of 6 with a serum bicarb of 16. The patient was transition to long-acting insulin and the patient will be started on Levemir 40 units daily along with NovoLog/scale coverage and insulin drip will be discontinued. Noted the patient was kept on insulin drip overnight which is running at 0.9 units an hour. She remains on D5 half-normal saline at rate of 150 cc an hour. No hypoglycemia. She is on IV Rocephin regarding Klebsiella pneumonia urinary tract infection. Most recent blood sugars is 198. The white cell count is 8.1 with a hemoglobin 12.3. She is on room air oxygen. Hemodynamically stable. No other significant events overnight. Objective - Vital Signs Vital signs: Vital Signs Temp 97.9 F 03/16/24 08:00 Pulse 71 03/16/24 09:00 Resp 19 03/16/24 09:00 BP 146/73 03/16/24 09:00 Pulse Ox 97 03/16/24 09:00 FiO2 Intake & Output 03/15/24 03/16/24 03/16/24 18:59 06:59 18:59 Intake Total 2110.208 1801.426 690 Output Total 450 820 650 Balance 1660.208 981.426 40 Weight 118.4 kg 122.5 kg Intake: IV 1809 1800 450 D5-0.45% NaCl with KCl 1809 1800 450 20Meq/l 1,000 ml @ 150 mls/hr IV .[id number] [facility] Rx# :[id number] Intake, IV Titration 301.208 1.426 Amount Insulin Regular 100 unit 201.208 1.426 In Sodium Chloride 0.9% 100 ml @ 0.1 UNITS/KG/HR 11.591 mls/hr IV .[id number] [facility] Rx#:[id number] Magnesium Sulfate-D5w Pmx 100 1 gm In Dextrose/Water 1 100ml.bag @ 100 mls/hr IVPB ONCE ONE Rx#: [id number] Oral 240 Output: Urine 450 820 650 Other: Voiding Method Indwelling Catheter Indwelling Catheter # Bowel Movements 1 - Exam Patient is awake and alert currently on room air oxygen Head exam was generally normal. There was no scleral icterus or corneal arcus. Mucous membranes were moist. Neck was supple and without jugular venous distension, thyromegaly, or carotid bruits. Carotids were easily palpable bilaterally. There was no adenopathy. Lungs were clear to auscultation and percussion, and with normal diaphragmatic excursion. No wheezes or rales were noted. Cardiac exam revealed the PMI to be normally situated and sized. The rhythm was regular and no extrasystoles were noted during several minutes of auscultation. The first and second heart sounds were normal and physiologic splitting of the second heart sound was noted. There were no murmurs, rubs, clicks, or gallops. Abdominal exam revealed normal bowel sounds. The abdomen was soft, non-tender, and without masses, organomegaly, or appreciable enlargement of the abdominal aorta. Examination of the extremities revealed easily palpable radial, femoral and pedal pulses. There was no cyanosis, clubbing or edema. Examination of the skin revealed no evidence of significant rashes, suspicious appearing nevi or other concerning lesions. Neurologically awake and alert and there is no focal neurological deficits. - Labs CBC & Chem 7: 03/16/24 04:59 03/16/24 09:37 Labs: Abnormal Lab Results - Last 24 Hours (Table) 03/15/24 03/15/24 03/15/24 Range/Units 09:28 10:05 11:05 Sodium 131 L (137-145) mmol/L Chloride 108 H (98-107) mmol/L Carbon Dioxide 15 L (22-30) mmol/L BUN 41 H (7-17) mg/dL Creatinine 1.37 H (0.52-1.04) mg/dL Glucose 191 H (74-99) mg/dL POC Glucose (mg/dL) 224 H 199 H (70-110) mg/dL Hemoglobin A1c (<=6.0) % Total Protein 5.8 L (6.3-8.2) g/dL Albumin 3.3 L (3.5-5.0) g/dL Urine Appearance (Clear) Urine Protein (Negative) Urine Glucose (UA) (Negative) Urine Ketones (Negative) Urine Bilirubin (Negative) Ur Leukocyte Esterase (Negative) Urine WBC (0-5) /hpf Urine Bacteria (None) /hpf Urine Mucus (None) /hpf 03/15/24 03/15/24 03/15/24 Range/Units 11:59 12:40 13:02 Sodium (137-145) mmol/L Chloride (98-107) mmol/L Carbon Dioxide (22-30) mmol/L BUN (7-17) mg/dL Creatinine (0.52-1.04) mg/dL Glucose (74-99) mg/dL POC Glucose (mg/dL) 211 H 194 H (70-110) mg/dL Hemoglobin A1c (<=6.0) % Total Protein (6.3-8.2) g/dL Albumin (3.5-5.0) g/dL Urine Appearance Cloudy H (Clear) Urine Protein Trace H (Negative) Urine Glucose (UA) 3+ H (Negative) Urine Ketones 2+ H (Negative) Urine Bilirubin 1+ H (Negative) Ur Leukocyte Esterase Moderate H (Negative) Urine WBC 36 H (0-5) /hpf Urine Bacteria Occasional H (None) /hpf Urine Mucus Rare H (None) /hpf 03/15/24 03/15/24 03/15/24 Range/Units 14:07 14:21 15:07 Sodium (137-145) mmol/L Chloride (98-107) mmol/L Carbon Dioxide (22-30) mmol/L BUN (7-17) mg/dL Creatinine (0.52-1.04) mg/dL Glucose (74-99) mg/dL POC Glucose (mg/dL) 180 H 207 H 233 H (70-110) mg/dL Hemoglobin A1c (<=6.0) % Total Protein (6.3-8.2) g/dL Albumin (3.5-5.0) g/dL Urine Appearance (Clear) Urine Protein (Negative) Urine Glucose (UA) (Negative) Urine Ketones (Negative) Urine Bilirubin (Negative) Ur Leukocyte Esterase (Negative) Urine WBC (0-5) /hpf Urine Bacteria (None) /hpf Urine Mucus (None) /hpf 03/15/24 03/15/24 03/15/24 Range/Units 16:03 16:11 17:01 Sodium (137-145) mmol/L Chloride (98-107) mmol/L Carbon Dioxide (22-30) mmol/L BUN (7-17) mg/dL Creatinine (0.52-1.04) mg/dL Glucose (74-99) mg/dL POC Glucose (mg/dL) 256 H 253 H (70-110) mg/dL Hemoglobin A1c 9.0 H (<=6.0) % Total Protein (6.3-8.2) g/dL Albumin (3.5-5.0) g/dL Urine Appearance (Clear) Urine Protein (Negative) Urine Glucose (UA) (Negative) Urine Ketones (Negative) Urine Bilirubin (Negative) Ur Leukocyte Esterase (Negative) Urine WBC (0-5) /hpf Urine Bacteria (None) /hpf Urine Mucus (None) /hpf 03/15/24 03/15/24 03/15/24 Range/Units 18:00 19:07 20:07 Sodium (137-145) mmol/L Chloride (98-107) mmol/L Carbon Dioxide (22-30) mmol/L BUN (7-17) mg/dL Creatinine (0.52-1.04) mg/dL Glucose (74-99) mg/dL POC Glucose (mg/dL) 261 H 212 H 150 H (70-110) mg/dL Hemoglobin A1c (<=6.0) % Total Protein (6.3-8.2) g/dL Albumin (3.5-5.0) g/dL Urine Appearance (Clear) Urine Protein (Negative) Urine Glucose (UA) (Negative) Urine Ketones (Negative) Urine Bilirubin (Negative) Ur Leukocyte Esterase (Negative) Urine WBC (0-5) /hpf Urine Bacteria (None) /hpf Urine Mucus (None) /hpf 03/15/24 03/15/24 03/15/24 Range/Units 21:01 22:05 23:01 Sodium (137-145) mmol/L Chloride (98-107) mmol/L Carbon Dioxide (22-30) mmol/L BUN (7-17) mg/dL Creatinine (0.52-1.04) mg/dL Glucose (74-99) mg/dL POC Glucose (mg/dL) 131 H 194 H 218 H (70-110) mg/dL Hemoglobin A1c (<=6.0) % Total Protein (6.3-8.2) g/dL Albumin (3.5-5.0) g/dL Urine Appearance (Clear) Urine Protein (Negative) Urine Glucose (UA) (Negative) Urine Ketones (Negative) Urine Bilirubin (Negative) Ur Leukocyte Esterase (Negative) Urine WBC (0-5) /hpf Urine Bacteria (None) /hpf Urine Mucus (None) /hpf 03/16/24 03/16/24 03/16/24 Range/Units 00:07 00:55 02:14 Sodium (137-145) mmol/L Chloride (98-107) mmol/L Carbon Dioxide (22-30) mmol/L BUN (7-17) mg/dL Creatinine (0.52-1.04) mg/dL Glucose (74-99) mg/dL POC Glucose (mg/dL) 226 H 213 H 239 H (70-110) mg/dL Hemoglobin A1c (<=6.0) % Total Protein (6.3-8.2) g/dL Albumin (3.5-5.0) g/dL Urine Appearance (Clear) Urine Protein (Negative) Urine Glucose (UA) (Negative) Urine Ketones (Negative) Urine Bilirubin (Negative) Ur Leukocyte Esterase (Negative) Urine WBC (0-5) /hpf Urine Bacteria (None) /hpf Urine Mucus (None) /hpf 03/16/24 03/16/24 03/16/24 Range/Units 03:18 04:27 04:59 Sodium 132 L (137-145) mmol/L Chloride (98-107) mmol/L Carbon Dioxide 17 L (22-30) mmol/L BUN 27 H (7-17) mg/dL Creatinine 1.09 H (0.52-1.04) mg/dL Glucose 220 H (74-99) mg/dL POC Glucose (mg/dL) 239 H 248 H (70-110) mg/dL Hemoglobin A1c (<=6.0) % Total Protein (6.3-8.2) g/dL Albumin (3.5-5.0) g/dL Urine Appearance (Clear) Urine Protein (Negative) Urine Glucose (UA) (Negative) Urine Ketones (Negative) Urine Bilirubin (Negative) Ur Leukocyte Esterase (Negative) Urine WBC (0-5) /hpf Urine Bacteria (None) /hpf Urine Mucus (None) /hpf 03/16/24 03/16/24 03/16/24 Range/Units 06:18 07:05 08:05 Sodium (137-145) mmol/L Chloride (98-107) mmol/L Carbon Dioxide (22-30) mmol/L BUN (7-17) mg/dL Creatinine (0.52-1.04) mg/dL Glucose (74-99) mg/dL POC Glucose (mg/dL) 165 H 151 H 171 H (70-110) mg/dL Hemoglobin A1c (<=6.0) % Total Protein (6.3-8.2) g/dL Albumin (3.5-5.0) g/dL Urine Appearance (Clear) Urine Protein (Negative) Urine Glucose (UA) (Negative) Urine Ketones (Negative) Urine Bilirubin (Negative) Ur Leukocyte Esterase (Negative) Urine WBC (0-5) /hpf Urine Bacteria (None) /hpf Urine Mucus (None) /hpf 03/16/24 Range/Units 09:23 Sodium (137-145) mmol/L Chloride (98-107) mmol/L Carbon Dioxide (22-30) mmol/L BUN (7-17) mg/dL Creatinine (0.52-1.04) mg/dL Glucose (74-99) mg/dL POC Glucose (mg/dL) 216 H (70-110) mg/dL Hemoglobin A1c (<=6.0) % Total Protein (6.3-8.2) g/dL Albumin (3.5-5.0) g/dL Urine Appearance (Clear) Urine Protein (Negative) Urine Glucose (UA) (Negative) Urine Ketones (Negative) Urine Bilirubin (Negative) Ur Leukocyte Esterase (Negative) Urine WBC (0-5) /hpf Urine Bacteria (None) /hpf Urine Mucus (None) /hpf Assessment and Plan Plan: Acute DKA with severe anion gap metabolic acidosis, the patient's anion gap is closed. Serum bicarb is at 16. Severe dehydration, adequately resuscitated Anion gap Metabolic acidosis due to acetone and lactate, secondary to above Acute kidney injury secondary to above, improved Type 1 diabetes mellitus Diabetic peripheral neuropathy Degenerative arthritis Gout Diverticulosis Hypertension History of nephrolithiasis and kidney stones Recurrent urinary tract infections in the urine culture from 03/12/2024 is consistent with left-sided pneumonia Hypothyroidism History of diverticulosis Previous history of GI bleed History of hepatitis C Plan Patient is currently on room air oxygen Start the patient on Levemir insulin 40 units along with insulin scale coverage and discontinue the insulin drip Monitor blood sugars and electrolytes IV Rocephin regarding Klebsiella pneumonia urinary tract infection Lovenox for DVT prophylaxis Resume home medications Titrate oxygen flow to maintain saturation above 90%, currently she is on room air oxygen.
[2024-03-16 14:22] LABS: Glucose,Whole Blood 257 mg/dL (70-110)
[2024-03-16 14:53] LABS: African American GFR (CKD) 66 (>60 ml/min/1.73 sqM); Anion Gap 5 mmol/L; Blood Urea Nitrogen 22 mg/dL (7-17); Calcium 8.5 mg/dL (8.4-10.2); Carbon Dioxide 17 mmol/L (22-30); Chloride 106 mmol/L (98-107); Glucose 380 mg/dL (74-99); Non-African American GFR(CKD) 58 (>60 ml/min/1.73 sqM); Potassium 5.4 mmol/L (3.5-5.1); Sodium 128 mmol/L (137-145)
[2024-03-16 15:17] LABS: Glucose,Whole Blood 275 mg/dL (70-110)
[2024-03-16 16:05] LABS: Glucose,Whole Blood 318 mg/dL (70-110)
[2024-03-16 17:06] LABS: Glucose,Whole Blood 281 mg/dL (70-110)
[2024-03-16 18:10] LABS: Glucose,Whole Blood 230 mg/dL (70-110)
[2024-03-16 18:43] LABS: African American GFR (CKD) 61 (>60 ml/min/1.73 sqM); Anion Gap 10 mmol/L; Blood Urea Nitrogen 21 mg/dL (7-17); Carbon Dioxide 16 mmol/L (22-30); Chloride 106 mmol/L (98-107); Glucose 240 mg/dL (74-99); Non-African American GFR(CKD) 53 (>60 ml/min/1.73 sqM); Potassium 4.7 mmol/L (3.5-5.1); Sodium 132 mmol/L (137-145)
[2024-03-16 19:02] LABS: Glucose,Whole Blood 187 mg/dL (70-110)
[2024-03-16 19:59] LABS: Glucose,Whole Blood 152 mg/dL (70-110)
[2024-03-16 21:03] LABS: Glucose,Whole Blood 123 mg/dL (70-110)
[2024-03-16 22:12] LABS: Glucose,Whole Blood 146 mg/dL (70-110)
[2024-03-16 22:59] LABS: Glucose,Whole Blood 142 mg/dL (70-110)
[2024-03-16 23:15] LABS: African American GFR (CKD) 53 (>60 ml/min/1.73 sqM); Anion Gap 7 mmol/L; Blood Urea Nitrogen 20 mg/dL (7-17); Calcium 8.9 mg/dL (8.4-10.2); Carbon Dioxide 18 mmol/L (22-30); Chloride 106 mmol/L (98-107); Glucose 150 mg/dL (74-99); Non-African American GFR(CKD) 46 (>60 ml/min/1.73 sqM); Potassium 4.7 mmol/L (3.5-5.1); Sodium 131 mmol/L (137-145)
[2024-03-16] MEDS ORDERED: DEXTROSE 50% SYRINGE 50 ML IVP PRN (23:18)
[2024-03-16] MEDS: INSULIN DETEMIR (LEVEMIR) 100 UNIT/ML SYR SQ SCH (23:24)
[2024-03-17 06:16] LABS: Glucose,Whole Blood 114 mg/dL (70-110)
[2024-03-17] MEDS: INSULIN ASPART (NovoLOG) 100 UNIT/ML VIAL SQ SCH (06:16)
--- NOTE | 2024-03-17 11:56 | P.PN ---
Subjective Progress Note Date: 03/17/24 On today's evaluation of 03/15/2024, the patient is being seen in consultation. She is a 73-year-old female patient came to the emergency department because of hyperglycemia. The patient is known to have diabetes mellitus type 1. She has not been consistently taking her Toujeo insulin. As such, she has noted the blood sugar has been elevated and the patient has been primarily using her short acting NovoLog insulin. As such, she came in with a mild component of anion gap metabolic acidosis. The patient's initial blood work showed a gap of 13 with a serum bicarb of 12. Her lactic acid level was at 5. Sodium levels at 126. Blood sugar was quite elevated at above 600 and potassium level is at 4.5. WC count was at 14.1 with hemoglobin 12.9 and a platelet count of 276. Overnight, the patient was given IV fluids. The patient was started on normal saline and currently she is on D5 half-normal citrate of 150 cc an hour. She is also on insulin drip which is running at 0.7 units an hour. She is also requiring potassium chloride to be run along with D5 water. Subsequent blood work inclu ding the most recent blood work on this patient that was done showed a gap of 8 with a serum bicarb of 15. Sodium is at 1 of 31 with a potassium level of 4.8. UA showing +3 glucose, +2 ketones, and elevated white cells. The patient's chest x-ray showed no acute process. Clinically, the patient is doing well. Producing adequate amount of urine output. She is on Lovenox for DVT prophylaxis. She has a BUN of 41 with a creatinine of 1.37 and she is recovering from her acute kidney injury. Noted the creatinine at time of admission was at 1.62. No focal neurological deficits. No fever. She has history of recurrent urine tract infections and the most recent urine culture that was obtained on 03/12/2024 showed Klebsiella pneumonia. 03/16/2024, the patient is awake and alert. She was able to have a small breakfast this morning. Follow-up blood work from today shows a anion gap of 6 with a serum bicarb of 16. The patient was transition to long-acting insulin and the patient will be started on Levemir 40 units daily along with NovoLog/scale coverage and insulin drip will be discontinued. Noted the patient was kept on insulin drip overnight which is running at 0.9 units an hour. She remains on D5 half-normal saline at rate of 150 cc an hour. No hypoglycemia. She is on IV Rocephin regarding Klebsiella pneumonia urinary tract infection. Most recent blood sugars is 198. The white cell count is 8.1 with a hemoglobin 12.3. She is on room air oxygen. Hemodynamically stable. No other significant events overnight. On today's evaluation of 03/17/2024, the patient is doing well. No specific complaints. She has recovered from her DKA. Anion gap is closed and the kailyn ent is currently on long-acting insulin with Levemir being given at 40 units daily. Most recent serum bicarb is 18 with a gap of 7. BUN is 20 with a creatinine of 1.1. Blood sugars 150 from this morning. She is awake and alert and she is currently on room air oxygen. Denies having any specific complaints. Objective - Vital Signs Vital signs: Vital Signs Temp 97.8 F 03/17/24 07:51 Pulse 64 03/17/24 07:51 Resp 20 03/17/24 07:51 BP 161/80 03/17/24 07:51 Pulse Ox 98 03/17/24 07:51 FiO2 Intake & Output 03/16/24 03/17/24 03/17/24 18:59 06:59 18:59 Intake Total 1866.398 391.864 Output Total 1330 1965 100 Balance 536.398 -1573.136 -100 Intake: IV 1125 375 D5-0.45% NaCl with KCl 1125 375 20Meq/l 1,000 ml @ 75 mls /hr IV .[id number] [facility] Rx#: [id number] Intake, IV Titration 21.398 16.864 Amount Insulin Regular 100 unit 21.398 16.864 In Sodium Chloride 0.9% 100 ml @ 0.1 UNITS/KG/HR 11.591 mls/hr IV .[id number] [facility] Rx#:[id number] Oral 720 Output: Urine 1330 1965 100 Other: Voiding Method Indwelling Catheter Indwelling Catheter # Bowel Movements 1 - Exam Patient is awake and alert currently on room air oxygen Head exam was generally normal. There was no scleral icterus or corneal arcus. Mucous membranes were moist. Neck was supple and without jugular venous distension, thyromegaly, or carotid bruits. Carotids were easily palpable bilaterally. There was no adenopathy. Lungs were clear to auscultation and percussion, and with normal diaphragmatic excursion. No wheezes or rales were noted. Cardiac exam revealed the PMI to be normally situated and sized. The rhythm was regular and no extrasystoles were noted during several minutes of auscultation. The first and second heart sounds were normal and physiologic splitting of the second heart sound was noted. There were no murmurs, rubs, clicks, or gallops. Abdominal exam revealed normal bowel sounds. The abdomen was soft, non-tender, and without masses, organomegaly, or appreciable enlargement of the abdominal aorta. Examination of the extremities revealed easily palpable radial, femoral and pedal pulses. There was no cyanosis, clubbing or edema. Examination of the skin revealed no evidence of significant rashes, suspicious appearing nevi or other concerning lesions. Neurologically awake and alert and there is no focal neurological deficits. - Labs CBC & Chem 7: 03/16/24 04:59 03/16/24 22:45 Labs: Abnormal Lab Results - Last 24 Hours (Table) 03/16/24 03/16/24 03/16/24 Range/Units 09:23 09:37 10:08 Sodium 130 L (137-145) mmol/L Potassium (3.5-5.1) mmol/L Chloride 108 H (98-107) mmol/L Carbon Dioxide 16 L (22-30) mmol/L BUN 24 H (7-17) mg/dL Creatinine (0.52-1.04) mg/dL Glucose 223 H (74-99) mg/dL POC Glucose (mg/dL) 216 H 223 H (70-110) mg/dL 03/16/24 03/16/24 03/16/24 Range/Units 11:42 14:21 14:24 Sodium 128 L (137-145) mmol/L Potassium 5.4 H (3.5-5.1) mmol/L Chloride (98-107) mmol/L Carbon Dioxide 17 L (22-30) mmol/L BUN 22 H (7-17) mg/dL Creatinine (0.52-1.04) mg/dL Glucose 380 H (74-99) mg/dL POC Glucose (mg/dL) 198 H 257 H (70-110) mg/dL 03/16/24 03/16/24 03/16/24 Range/Units 15:16 16:03 17:04 Sodium (137-145) mmol/L Potassium (3.5-5.1) mmol/L Chloride (98-107) mmol/L Carbon Dioxide (22-30) mmol/L BUN (7-17) mg/dL Creatinine (0.52-1.04) mg/dL Glucose (74-99) mg/dL POC Glucose (mg/dL) 275 H 318 H 281 H (70-110) mg/dL 03/16/24 03/16/24 03/16/24 Range/Units 18:09 18:19 19:01 Sodium 132 L (137-145) mmol/L Potassium (3.5-5.1) mmol/L Chloride (98-107) mmol/L Carbon Dioxide 16 L (22-30) mmol/L BUN 21 H (7-17) mg/dL Creatinine (0.52-1.04) mg/dL Glucose 240 H (74-99) mg/dL POC Glucose (mg/dL) 230 H 187 H (70-110) mg/dL 03/16/24 03/16/24 03/16/24 Range/Units 19:57 21:01 22:00 Sodium (137-145) mmol/L Potassium (3.5-5.1) mmol/L Chloride (98-107) mmol/L Carbon Dioxide (22-30) mmol/L BUN (7-17) mg/dL Creatinine (0.52-1.04) mg/dL Glucose (74-99) mg/dL POC Glucose (mg/dL) 152 H 123 H 146 H (70-110) mg/dL 03/16/24 03/16/24 03/17/24 Range/Units 22:45 22:57 06:15 Sodium 131 L (137-145) mmol/L Potassium (3.5-5.1) mmol/L Chloride (98-107) mmol/L Carbon Dioxide 18 L (22-30) mmol/L BUN 20 H (7-17) mg/dL Creatinine 1.17 H (0.52-1.04) mg/dL Glucose 150 H (74-99) mg/dL POC Glucose (mg/dL) 142 H 114 H (70-110) mg/dL Microbiology - Last 24 Hours (Table) 03/15/24 12:40 Urine Culture - Preliminary Urine,Voided Gram Neg Bacilli Assessment and Plan Plan: Acute DKA with severe anion gap metabolic acidosis, the patient's anion gap is closed. Serum bicarb is at 18, currently on long-acting insulin with Levemir 40 units daily Severe dehydration, adequately resuscitated, recovered Anion gap Metabolic acidosis due to acetone and lactate, secondary to above, recovered Acute kidney injury secondary to above, improved Type 1 diabetes mellitus Diabetic peripheral neuropathy Degenerative arthritis Gout Diverticulosis Hypertension History of nephrolithiasis and kidney stones Recurrent urinary tract infections in the urine culture from 03/12/2024 is consistent with left-sided pneumonia Hypothyroidism History of diverticulosis Previous history of GI bleed History of hepatitis C Plan Patient is currently on room air oxygen Start the patient on Levemir insulin 40 units along with insulin scale coverage Monitor blood sugars and electrolytes IV Rocephin regarding Klebsiella pneumonia urinary tract infection Lovenox for DVT prophylaxis Resume home medications Titrate oxygen flow to maintain saturation above 90%, currently she is on room air oxygen.
[2024-03-17 12:25] LABS: Glucose,Whole Blood 166 mg/dL (70-110)
[2024-03-17] MEDS: hydrALAZINE HCL 25 MG TAB PO SCH (12:40)
[2024-03-17 13:15] LABS: African American GFR (CKD) 63 (>60 ml/min/1.73 sqM); Anion Gap 6 mmol/L; Blood Urea Nitrogen 17 mg/dL (7-17); Calcium 9.3 mg/dL (8.4-10.2); Carbon Dioxide 22 mmol/L (22-30); Chloride 106 mmol/L (98-107); Glucose 168 mg/dL (74-99); Non-African American GFR(CKD) 54 (>60 ml/min/1.73 sqM); Potassium 4.7 mmol/L (3.5-5.1); Sodium 134 mmol/L (137-145)
[2024-03-17 13:35] VITALS: BMI 39.9
--- NOTE | 2024-03-17 16:24 | P.PN ---
Subjective Progress Note Date: 03/16/24 H&P Date: 03/15/24 Chief Complaint: Hyperglycemia this is a 73-year-old female recently discharged November 20, 2023 for similar presentation of acute DKA,admitted with acute diabetic ketoacidosis with metabolic acidosis, severe dehydration with acute renal failure.reported she became confused and was not taking her insulins correctly. became hyperglycemic and presented to the ER via EMS. Patient is on both Toujeo and Humalog insulins. on admission glucose level was 800. Received IV fluid bolus of 1.5 L. WBCs 14.1, lactic acid 4.3, bicarb less than 5 and anion gap was not able to be calculated .acetone positive .VBG reported pH of 7.11, pCO2 27 and bicarb 9 .lactic acidosis resolved with IV fluid resuscitation, currently 0.8. Anion gap 8, bicarb 15. denies cough or congestion. Renal function improving, BUN 41, creatinine 1.37. Sodium 126 , increased to 131 .denies chest pain, palpitations or shortness of breath. Maintaining O2 sats in the mid 90s on room air. Chest x-ray reported no acute process. Urine culture from 03/12/2024 reported Klebsiella pneumonia, UA reported negative nitrates, +3 glucose, +2 ketones, moderate leukocytes. 03/16/2024 maintained on DKA protocol, currently on insulin drip. gap 6, bicarb 16, blood sugars in the low 200s.transitioning soon to long-acting insulin and NovoLog sliding scale. Maintained on ceftriaxone for acute UTI. Afebrile, normal WBC. Denies chest pain, palpitations or shortness of breath. Maintaining O2 sats in the 90s on room air. Reports that she is mixing up her Toujeo insulin with her short acting Humalog. Objective - Vital Signs Vital signs: Vital Signs Temp 97.9 F 03/16/24 08:00 Pulse 64 03/16/24 10:00 Resp 15 03/16/24 10:00 BP 131/77 03/16/24 10:00 Pulse Ox 97 03/16/24 10:00 FiO2 Intake & Output 03/15/24 03/16/24 03/16/24 18:59 06:59 18:59 Intake Total 2110.208 1801.426 765 Output Total 450 820 750 Balance 1660.208 981.426 15 Weight 118.4 kg 122.5 kg Intake: IV 1809 1800 525 D5-0.45% NaCl with KCl 1809 1800 525 20Meq/l 1,000 ml @ 75 mls /hr IV .[id number] [facility] Rx#: [id number] Intake, IV Titration 301.208 1.426 Amount Insulin Regular 100 unit 201.208 1.426 In Sodium Chloride 0.9% 100 ml @ 0.1 UNITS/KG/HR 11.591 mls/hr IV .[id number] [facility] Rx#:[id number] Magnesium Sulfate-D5w Pmx 100 1 gm In Dextrose/Water 1 100ml.bag @ 100 mls/hr IVPB ONCE ONE Rx#: [id number] Oral 240 Output: Urine 450 820 750 Other: Voiding Method Indwelling Catheter Indwelling Catheter # Bowel Movements 1 - Exam VITAL SIGNS: [As above] GENERAL: Alert and oriented x 3, sitting up in chair, no acute distress. HEENT: Atraumatic, normocephalic conjunctivae normal. eyes normal. NECK: Supple, no JVD. CARDIOVASCULAR: S1, S2 regular.. No murmur RESPIRATION: Unlabored, equal air entry, CTA, bibasilar lungs diminished. ABDOMEN: Soft, nondistended, nontender . No guarding. Positive bowel sounds LEGS: No edema. no swelling. NERVOUS SYSTEM: Cranial N 2-12 grossly normal. No focal deficits. Strength and sensation grossly intact. Skin: Warm and dry, no rash. - Labs CBC & Chem 7: 03/16/24 04:59 03/17/24 12:27 Labs: Abnormal Lab Results - Last 24 Hours (Table) 03/15/24 03/15/24 03/15/24 Range/Units 11:05 11:59 12:40 Sodium (137-145) mmol/L Chloride (98-107) mmol/L Carbon Dioxide (22-30) mmol/L BUN (7-17) mg/dL Creatinine (0.52-1.04) mg/dL Glucose (74-99) mg/dL POC Glucose (mg/dL) 199 H 211 H (70-110) mg/dL Hemoglobin A1c (<=6.0) % Urine Appearance Cloudy H (Clear) Urine Protein Trace H (Negative) Urine Glucose (UA) 3+ H (Negative) Urine Ketones 2+ H (Negative) Urine Bilirubin 1+ H (Negative) Ur Leukocyte Esterase Moderate H (Negative) Urine WBC 36 H (0-5) /hpf Urine Bacteria Occasional H (None) /hpf Urine Mucus Rare H (None) /hpf 03/15/24 03/15/24 03/15/24 Range/Units 13:02 14:07 14:21 Sodium (137-145) mmol/L Chloride (98-107) mmol/L Carbon Dioxide (22-30) mmol/L BUN (7-17) mg/dL Creatinine (0.52-1.04) mg/dL Glucose (74-99) mg/dL POC Glucose (mg/dL) 194 H 180 H 207 H (70-110) mg/dL Hemoglobin A1c (<=6.0) % Urine Appearance (Clear) Urine Protein (Negative) Urine Glucose (UA) (Negative) Urine Ketones (Negative) Urine Bilirubin (Negative) Ur Leukocyte Esterase (Negative) Urine WBC (0-5) /hpf Urine Bacteria (None) /hpf Urine Mucus (None) /hpf 03/15/24 03/15/24 03/15/24 Range/Units 15:07 16:03 16:11 Sodium (137-145) mmol/L Chloride (98-107) mmol/L Carbon Dioxide (22-30) mmol/L BUN (7-17) mg/dL Creatinine (0.52-1.04) mg/dL Glucose (74-99) mg/dL POC Glucose (mg/dL) 233 H 256 H (70-110) mg/dL Hemoglobin A1c 9.0 H (<=6.0) % Urine Appearance (Clear) Urine Protein (Negative) Urine Glucose (UA) (Negative) Urine Ketones (Negative) Urine Bilirubin (Negative) Ur Leukocyte Esterase (Negative) Urine WBC (0-5) /hpf Urine Bacteria (None) /hpf Urine Mucus (None) /hpf 03/15/24 03/15/24 03/15/24 Range/Units 17:01 18:00 19:07 Sodium (137-145) mmol/L Chloride (98-107) mmol/L Carbon Dioxide (22-30) mmol/L BUN (7-17) mg/dL Creatinine (0.52-1.04) mg/dL Glucose (74-99) mg/dL POC Glucose (mg/dL) 253 H 261 H 212 H (70-110) mg/dL Hemoglobin A1c (<=6.0) % Urine Appearance (Clear) Urine Protein (Negative) Urine Glucose (UA) (Negative) Urine Ketones (Negative) Urine Bilirubin (Negative) Ur Leukocyte Esterase (Negative) Urine WBC (0-5) /hpf Urine Bacteria (None) /hpf Urine Mucus (None) /hpf 03/15/24 03/15/24 03/15/24 Range/Units 20:07 21:01 22:05 Sodium (137-145) mmol/L Chloride (98-107) mmol/L Carbon Dioxide (22-30) mmol/L BUN (7-17) mg/dL Creatinine (0.52-1.04) mg/dL Glucose (74-99) mg/dL POC Glucose (mg/dL) 150 H 131 H 194 H (70-110) mg/dL Hemoglobin A1c (<=6.0) % Urine Appearance (Clear) Urine Protein (Negative) Urine Glucose (UA) (Negative) Urine Ketones (Negative) Urine Bilirubin (Negative) Ur Leukocyte Esterase (Negative) Urine WBC (0-5) /hpf Urine Bacteria (None) /hpf Urine Mucus (None) /hpf 03/15/24 03/16/24 03/16/24 Range/Units 23:01 00:07 00:55 Sodium (137-145) mmol/L Chloride (98-107) mmol/L Carbon Dioxide (22-30) mmol/L BUN (7-17) mg/dL Creatinine (0.52-1.04) mg/dL Glucose (74-99) mg/dL POC Glucose (mg/dL) 218 H 226 H 213 H (70-110) mg/dL Hemoglobin A1c (<=6.0) % Urine Appearance (Clear) Urine Protein (Negative) Urine Glucose (UA) (Negative) Urine Ketones (Negative) Urine Bilirubin (Negative) Ur Leukocyte Esterase (Negative) Urine WBC (0-5) /hpf Urine Bacteria (None) /hpf Urine Mucus (None) /hpf 03/16/24 03/16/24 03/16/24 Range/Units 02:14 03:18 04:27 Sodium (137-145) mmol/L Chloride (98-107) mmol/L Carbon Dioxide (22-30) mmol/L BUN (7-17) mg/dL Creatinine (0.52-1.04) mg/dL Glucose (74-99) mg/dL POC Glucose (mg/dL) 239 H 239 H 248 H (70-110) mg/dL Hemoglobin A1c (<=6.0) % Urine Appearance (Clear) Urine Protein (Negative) Urine Glucose (UA) (Negative) Urine Ketones (Negative) Urine Bilirubin (Negative) Ur Leukocyte Esterase (Negative) Urine WBC (0-5) /hpf Urine Bacteria (None) /hpf Urine Mucus (None) /hpf 03/16/24 03/16/24 03/16/24 Range/Units 04:59 06:18 07:05 Sodium 132 L (137-145) mmol/L Chloride (98-107) mmol/L Carbon Dioxide 17 L (22-30) mmol/L BUN 27 H (7-17) mg/dL Creatinine 1.09 H (0.52-1.04) mg/dL Glucose 220 H (74-99) mg/dL POC Glucose (mg/dL) 165 H 151 H (70-110) mg/dL Hemoglobin A1c (<=6.0) % Urine Appearance (Clear) Urine Protein (Negative) Urine Glucose (UA) (Negative) Urine Ketones (Negative) Urine Bilirubin (Negative) Ur Leukocyte Esterase (Negative) Urine WBC (0-5) /hpf Urine Bacteria (None) /hpf Urine Mucus (None) /hpf 03/16/24 03/16/24 03/16/24 Range/Units 08:05 09:23 09:37 Sodium 130 L (137-145) mmol/L Chloride 108 H (98-107) mmol/L Carbon Dioxide 16 L (22-30) mmol/L BUN 24 H (7-17) mg/dL Creatinine (0.52-1.04) mg/dL Glucose 223 H (74-99) mg/dL POC Glucose (mg/dL) 171 H 216 H (70-110) mg/dL Hemoglobin A1c (<=6.0) % Urine Appearance (Clear) Urine Protein (Negative) Urine Glucose (UA) (Negative) Urine Ketones (Negative) Urine Bilirubin (Negative) Ur Leukocyte Esterase (Negative) Urine WBC (0-5) /hpf Urine Bacteria (None) /hpf Urine Mucus (None) /hpf 03/16/24 Range/Units 10:08 Sodium (137-145) mmol/L Chloride (98-107) mmol/L Carbon Dioxide (22-30) mmol/L BUN (7-17) mg/dL Creatinine (0.52-1.04) mg/dL Glucose (74-99) mg/dL POC Glucose (mg/dL) 223 H (70-110) mg/dL Hemoglobin A1c (<=6.0) % Urine Appearance (Clear) Urine Protein (Negative) Urine Glucose (UA) (Negative) Urine Ketones (Negative) Urine Bilirubin (Negative) Ur Leukocyte Esterase (Negative) Urine WBC (0-5) /hpf Urine Bacteria (None) /hpf Urine Mucus (None) /hpf Assessment and Plan Assessment: Acute diabetic ketoacidosis, gap closed, bicarb 16 Anion gap metabolic acidosis, both acetone and lactic ,secondary to the above, improving Uncontrolled diabetes mellitus type I Dehydration, severe Recurrent UTI, urine culture 03/12/2024 ,reporting Klebsiella pneumoniae Alcohol consumption, drinks 1 glass of wine per night, documented in computer H&P. Patient reports no wine, occasional beer. Acute leukocytosis, resolved Acute renal failure, secondary to the above, improved Diabetic peripheral neuropathy Benign essential hypertension Nephrolithiasis Hypothyroidism History of anxiety, depression, panic disorder History of hepatitis C Plan: Continue on current medication resume ,monitoring and symptomatic treatment. DKA protocol, transitioning to long-acting insulin soon. Maintain IV antibiotics of ceftriaxone for UTI. Patient still expressing confusion over her different insulins. PCP discussing with daughters, regarding assisting patient with meds. The impression and plan of care has been dictated as directed. : I performed a history and examination of this patient, discussed the same with the dictator. I agree with the dictator's note ,documented as a scribe. Any additional findings or plans will be noted.
--- NOTE | 2024-03-17 16:30 | P.PN ---
Subjective Progress Note Date: 03/17/24 H&P Date: 03/15/24 Chief Complaint: Hyperglycemia this is a 73-year-old female recently discharged November 20, 2023 for similar presentation of acute DKA,admitted with acute diabetic ketoacidosis with metabolic acidosis, severe dehydration with acute renal failure.reported she became confused and was not taking her insulins correctly. became hyperglycemic and presented to the ER via EMS. Patient is on both Toujeo and Humalog insulins. on admission glucose level was 800. Received IV fluid bolus of 1.5 L. WBCs 14.1, lactic acid 4.3, bicarb less than 5 and anion gap was not able to be calculated .acetone positive .VBG reported pH of 7.11, pCO2 27 and bicarb 9 .lactic acidosis resolved with IV fluid resuscitation, currently 0.8. Anion gap 8, bicarb 15. denies cough or congestion. Renal function improving, BUN 41, creatinine 1.37. Sodium 126 , increased to 131 .denies chest pain, palpitations or shortness of breath. Maintaining O2 sats in the mid 90s on room air. Chest x-ray reported no acute process. Urine culture from 03/12/2024 reported Klebsiella pneumonia, UA reported negative nitrates, +3 glucose, +2 ketones, moderate leukocytes. 03/16/2024 maintained on DKA protocol, currently on insulin drip. gap 6, bicarb 16, blood sugars in the low 200s.transitioning soon to long-acting insulin and NovoLog sliding scale. Maintained on ceftriaxone for acute UTI. Afebrile, normal WBC. Denies chest pain, palpitations or shortness of breath. Maintaining O2 sats in the 90s on room air. Reports that she is mixing up her Toujeo insulin with her short acting Humalog. 03/17/2024 DKA resolved, transition to long-acting insulin and NovoLog sliding scale, transferred out of ICU to MedSurg unit. Blood sugars currently in the low 100s to 160s. Renal function stable. Afebrile. Daughter Mis at bedside reports that between her and her sister they will take over patient's medication regimen including ensuring her consistent carb diet. Hemodynamically stable. Objective - Vital Signs Vital signs: Vital Signs Temp 98.1 F 03/17/24 13:47 Pulse 74 09/25/24 13:47 Resp 18 03/17/24 13:47 BP 144/81 03/17/24 13:47 Pulse Ox 96 03/17/24 13:47 FiO2 Intake & Output 03/16/24 03/17/24 03/17/24 18:59 06:59 18:59 Intake Total 1866.398 391.864 Output Total 1330 1965 1200 Balance 536.398 -1573.136 -1200 Weight 122.5 kg Intake: IV 1125 375 D5-0.45% NaCl with KCl 1125 375 20Meq/l 1,000 ml @ 75 mls /hr IV .[id number] [facility] Rx#: [id number] Intake, IV Titration 21.398 16.864 Amount Insulin Regular 100 unit 21.398 16.864 In Sodium Chloride 0.9% 100 ml @ 0.1 UNITS/KG/HR 11.591 mls/hr IV .[id number] [facility] Rx#:[id number] Oral 720 Output: Urine 1330 1965 1200 Uretheral (Smith) 1100 Other: Voiding Method Indwelling Catheter Indwelling Catheter Indwelling Catheter # Bowel Movements 1 - Exam VITAL SIGNS: [As above] GENERAL: Alert and oriented x 3, sitting up in chair, no acute distress. HEENT: conjunctivae normal. eyes normal. NECK: Supple, no JVD. CARDIOVASCULAR: S1, S2 regular.. No murmur RESPIRATION: Unlabored, equal air entry, CTA, bibasilar lungs diminished. ABDOMEN: Soft, nondistended, nontender . No guarding. Positive bowel sounds LEGS: No edema. no swelling. NERVOUS SYSTEM: Cranial N 2-12 grossly normal. No focal deficits. Strength and sensation grossly intact. Skin: Warm and dry, no rash. - Labs CBC & Chem 7: 03/16/24 04:59 03/17/24 12:27 Labs: Abnormal Lab Results - Last 24 Hours (Table) 03/16/24 03/16/24 03/16/24 Range/Units 17:04 18:09 18:19 Sodium 132 L (137-145) mmol/L Carbon Dioxide 16 L (22-30) mmol/L BUN 21 H (7-17) mg/dL Creatinine (0.52-1.04) mg/dL Glucose 240 H (74-99) mg/dL POC Glucose (mg/dL) 281 H 230 H (70-110) mg/dL 03/16/24 03/16/24 03/16/24 Range/Units 19:01 19:57 21:01 Sodium (137-145) mmol/L Carbon Dioxide (22-30) mmol/L BUN (7-17) mg/dL Creatinine (0.52-1.04) mg/dL Glucose (74-99) mg/dL POC Glucose (mg/dL) 187 H 152 H 123 H (70-110) mg/dL 03/16/24 03/16/24 03/16/24 Range/Units 22:00 22:45 22:57 Sodium 131 L (137-145) mmol/L Carbon Dioxide 18 L (22-30) mmol/L BUN 20 H (7-17) mg/dL Creatinine 1.17 H (0.52-1.04) mg/dL Glucose 150 H (74-99) mg/dL POC Glucose (mg/dL) 146 H 142 H (70-110) mg/dL 03/17/24 03/17/24 03/17/24 Range/Units 06:15 12:23 12:27 Sodium 134 L (137-145) mmol/L Carbon Dioxide (22-30) mmol/L BUN (7-17) mg/dL Creatinine (0.52-1.04) mg/dL Glucose 168 H (74-99) mg/dL POC Glucose (mg/dL) 114 H 166 H (70-110) mg/dL Microbiology - Last 24 Hours (Table) 03/15/24 12:40 Urine Culture - Preliminary Urine,Voided Gram Neg Bacilli Assessment and Plan Assessment: Acute diabetic ketoacidosis, gap closed, bicarb 16 Anion gap metabolic acidosis, both acetone and lactic ,secondary to the above, improving Uncontrolled diabetes mellitus type I, hemoglobin A1c 9 Dehydration, severe Recurrent UTI, urine culture 03/12/2024 ,reporting Klebsiella pneumoniae Alcohol consumption, drinks 1 glass of wine per night, documented in computer H&P. Patient reports no wine, occasional beer. Acute leukocytosis, resolved Acute renal failure, secondary to the above, improved Diabetic peripheral neuropathy Benign essential hypertension Nephrolithiasis Hypothyroidism History of anxiety, depression, panic disorder History of hepatitis C Plan: Continue on current medication resume ,monitoring and symptomatic treatment. Maintain Levemir and NovoLog sliding scale with close monitoring of Accu-Cheks. Discussed with staff- diabetic teaching to include daughters as well as patient. Dietary consulted for diabetic teaching. Reinforced that they all will need to proceed with further diabetic teaching in clinic with PCP. Continue ceftriaxone for UTI. Discussed with patient and daughter discharge planning in progress for tomorrow. The impression and plan of care has been dictated as directed. : I performed a history and examination of this patient, discussed the same with the dictator. I agree with the dictator's note ,documented as a scribe. Any additional findings or plans will be noted.
[2024-03-17 17:06] LABS: Glucose,Whole Blood 124 mg/dL (70-110)
[2024-03-17 20:33] LABS: Glucose,Whole Blood 260 mg/dL (70-110)
[2024-03-18 06:03] LABS: Glucose,Whole Blood 46 mg/dL (70-110)
[2024-03-18 06:17] LABS: Glucose,Whole Blood 60 mg/dL (70-110)
[2024-03-18] MEDS: DEXTROSE 50% SYRINGE 50 ML IVP PRN (06:17)
[2024-03-18 06:41] LABS: Glucose,Whole Blood 163 mg/dL (70-110)
[2024-03-18 07:23] LABS: Glucose,Whole Blood 142 mg/dL (70-110)
[2024-03-18 08:06] VITALS: BP 163/91; PULSE 86; RESP 21; TEMP 97.6
[2024-03-18 11:52] LABS: Glucose,Whole Blood 185 mg/dL (70-110)
== END 2024-03-18 13:26 | disposition home or self-care (01) | DRG 638 ==
LOC: EC 17:31 → 2SICU 23:22 → 5NMEDONC 03-17 08:27
PROVIDERS: ADMIT Family Medicine; ATTEND Family Medicine
DX: E10.10 Type 1 diabetes mellitus with ketoacidosis without coma (principal); N17.9 Acute kidney failure, unspecified; N39.0 Urinary tract infection, site not specified; E10.42 Type 1 diabetes mellitus with diabetic polyneuropathy; I11.0 Hypertensive heart disease with heart failure; I50.9 Heart failure, unspecified; G25.81 Restless legs syndrome; E03.9 Hypothyroidism, unspecified; F32.A Depression, unspecified; E86.0 Dehydration; N20.0 Calculus of kidney; F41.0 Panic disorder [episodic paroxysmal anxiety]; M19.042 Primary osteoarthritis, left hand; M19.041 Primary osteoarthritis, right hand; B96.1 Klebsiella pneumoniae [K. pneumoniae] as the cause of diseases classified elsewhere; T38.3X6A Underdosing of insulin and oral hypoglycemic [antidiabetic] drugs, initial encounter; Z91.138 Patient's unintentional underdosing of medication regimen for other reason; Z79.4 Long term (current) use of insulin; Z79.890 Hormone replacement therapy; Z79.899 Other long term (current) drug therapy; Z87.440 Personal history of urinary (tract) infections; Z87.442 Personal history of urinary calculi; Z96.652 Presence of left artificial knee joint; Z86.19 Personal history of other infectious and parasitic diseases; Z88.2 Allergy status to sulfonamides; Z91.048 Other nonmedicinal substance allergy status
CPT/HCPCS: 36415; 71046; 80048; 80051; 80053; 81001; 81003; 82009; 82565; 82803; 82947; 83036; 83605; 83735; 83880; 84100; 84443; 84484; 84520; 85025; 85610; 85730; 87077; 87086; 87186; 93005; 96361; 96374; 99291